=== PATIENT | female | born 1950 | race Caucasian/White ===

== ENCOUNTER 2020-08-15 02:33 | Emergency (ER) | payer MEDICARE, SELFPAY ==
--- NOTE | 2020-08-15 | ECG_ITS ---
APPROVED REPORT Exam: Resting ECG HR:70 bpm ECG Measurements Heart Rate 70 AXES OR 154 P QRSd 86 QRS 156 QT 472 T 147 QTc 509 Conclusion Normal sinus rhythm Right axis deviation Prolonged QT Abnormal ECG Electronically signed by : Darrell Taylor, 08/22/2020 07:37:58
[2020-08-15 02:33] VITALS: BP 114/69; PULSE 70; RESP 16; TEMP 36.6; O2SAT 95; BMI 26.6
--- NOTE | 2020-08-15 02:43 | XR_ITS ---
PROCEDURE: XR CHEST PORTABLE CLINICAL HISTORY: chest pain Chest pain and smoker COMPARISON: No exams were available for comparison FINDINGS: The cardiomediastinal silhouette and pulmonary vascularity are within normal limits. The lungs are clear without infiltrates, suspicious nodules, or pleural effusions. There is an old left 6th and 7th rib fracture. Minimal calcification noted the humeral head suggesting calcific tendinitis. IMPRESSION: No acute findings. Dictated by: Javier Pelaez MD 08/15/2020 07:08 Javier Pelaez MD in [place] 08/15/2020 07:08
--- NOTE | 2020-08-15 02:43 | CT_ITS ---
PROCEDURE: CT ABDOMEN PELVIS W CON CLINICAL INDICATION: abdominal pain, n/v Upper abdominal pain with nausea and vomiting COMPARISON: No exams were available for comparison TECHNIQUE: IV Contrast: 75ML Isovue 370 Oral Contrast None Axial images obtained with sagittal and coronal reformats. All CT scans at the facility use one or more dose reduction, viz: automated exposure control, ma/kV adjustment per patient size (including targeted exams where dose is matched to indication, i.e. head), or iterative reconstruction technique. FINDINGS: LOWER THORAX: Coronary artery calcifications are present. ABDOMEN & PELVIS: Prior cholecystectomy with mild biliary ectasia. 3 mm hypodensity in the right hepatic lobe central aspect and may represent a small cyst. 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 Mild thickening of the wall the stomach involving the lower body and antrum which may be due to nondistention or gastritis. Scattered calcifications are present involving the pancreas suggesting chronic pancreatitis a 14 mm hypodense lesion projects off the superior aspect of the body of the pancreas best seen on image 24 series 3. There is minimal wall calcification along the posterior aspect. No renal or ureteral calculi. No hydronephrosis or renal mass. There are few small retroperitoneal lymph nodes. The there is given history of prior appendectomy. No intestinal obstruction or free air. No evidence diverticulitis. No acute bony findings. Scattered small nodes are present in the inguinal regions on both sides. In the right lower quadrant there is a small tubular structure containing some calcifications and may be due to partially calcified lymph node or thrombosed varix. IMPRESSION: 1. Mild thickening of the gastric body and antrum which may be due to nondistention or gastritis. 2. Cystic lesion of the body of the pancreas containing some minimal calcification posteriorly. Cystic pancreatic neoplasm is a consideration. Nonemergent MRI of the abdomen with pancreatic protocol without and with gadolinium enhancement and MRCP is suggested. 3. Other nonacute findings as described above. Dictated by: Javier Pelaez MD 08/15/2020 07:50 Javier Pelaez MD in [place] 08/15/2020 07:50
--- NOTE | 2020-08-15 02:44 | HMH.EDGENADL ---
ED Disposition Clinical Impression: Pyelonephritis Disposition: Home, Self-Care Condition on Discharge: Fair Instructions: DI for Nausea -- Adult, Nausea and Vomiting-Adult Additional Instructions: Please take medication as prescribed If symptoms do not improve, please follow-up with your PCP or return to the ED for further evaluation Prescriptions: Amoxicillin/Potassium Clav [Augmentin 500mg tab] 500 mg PO BID 10 Days #20 tab Prescription Printed Ondansetron [Zofran 4mg ODT] 4 mg PO Q6H PRN #8 tab PRN Reason: Nausea And Vomiting Prescription Printed Referrals: PCP,No [Primary Care Provider] - - Critical Care Critical Care Time: No Attestation: On , the high probability of a clinically significant, sudden or life threatening deterioration of the following system(s) required my full and direct attention, intervention and personal management. The time I documented below is in addition to time spent performing reported procedures but includes the following listed in this critical care notation. Medical Decision Making - Medical Records Medical records reviewed: Yes: I reviewed the patient's medical records. - Marvin Inquiry Pt receiving controlled substance: Yes (Pain, takes oxy at home) Marvin was queried for this patient: Yes Risks and benefits of using a controlled substance: were discussed with pt by me Vital Signs: 08/15/20 02:33 Temperature 97.8 F Temperature Source Oral Pulse Rate [Left Radial] 70 Respiratory Rate 16 Blood Pressure [Right Arm] 114/69 Blood Pressure Mean [Right Arm] 84 Blood Pressure Source [Right Arm] Automatic Cuff Blood Pressure Position [Right Arm] Supine 02 Sat by Pulse Oximetry 95 Oxygen Delivery Method Room Air - Lab Data Lab Results 08/15/20 02:54: WBC 9.8, RBC 4.39, Hgb 12.6, Hct 38.9, MCV 88.5, MCH 28.6, MCHC 32.3, RDW 14.5, Plt Count 372, MPV 7.7, Neut % (Auto) 74.2, Lymph % (Auto) 18.9, [place] % (Auto) 4.4, Eos % (Auto) 1.8, Baso % (Auto) 0.7, Neut # (Auto) 7.3, Lymph # (Auto) 1.9, [place] # (Auto) 0.4, Eos # (Auto) 0.2, Baso # (Auto) 0.1 08/15/20 02:54: Sodium 139, Potassium 3.7, Chloride 102, Carbon Dioxide 26, Anion Gap 14.7, BUN 24 H, Creatinine 0.70, Estimated Creat Clear 62, Estimated GFR 82, Est GFR ( Amer) 100, Glucose 184 H, Calcium 10.0, Total Bilirubin 0.4, AST 28, ALT 13, Alkaline Phosphatase 121, Total Protein 8.9 H, Albumin 5.0, Globulin 3.9 H, Albumin/Globulin Ratio 1.3, Lipase 29 08/15/20 02:54: Lactate 1.0 08/15/20 03:13: Urine Color Yellow, Urine Appearance Clear, Urine pH 6.0, Ur Specific [place] 1.020, Urine Protein Negative, Urine Glucose (UA) 3+, Urine Ketones Negative, Urine Blood Negative, Urine Nitrate Positive, Urine Bilirubin Negative, Urine Urobilinogen 0.2, Ur Leukocyte Esterase Negative, Urine RBC None, Urine WBC 20-50, Ur Squamous Epith Cells None, Urine Bacteria 4+ Result diagrams: 08/15/20 02:54 08/15/20 02:54 Orders (Tests/Meds): ED MEDICATIONS Generic Name Dose Route Start Last Admin Trade Name Freq PRN Reason Stop Dose Admin Sodium Chloride 500 mls @ 999 mls/hr 08/15/20 03:00 08/15/20 03:33 Sod Chlor 0.9% 1000ml Bag IV 08/15/20 03:30 999 mls/hr .Q31M FANTA Administration Discontinued Medications Generic Name Dose Route Start Last Admin Trade Name Freq PRN Reason Stop Dose Admin Amoxicillin/Clavulanate Potassium 1 each 08/15/20 04:19 08/15/20 04:31 Amoxicillin/Pot Clavulan 500mg Tablet PO 08/15/20 04:20 1 each ONCE ONE Administration Protocol Iopamidol 70 ml 08/15/20 04:12 08/15/20 04:12 Iopamidol-370 (76%);100ml Bottle IV 08/15/20 04:13 70 ml ONCE ONE Administration Ondansetron HCl 4 mg 08/15/20 02:43 08/15/20 03:33 Ondansetron 4mg/2ml Vial IV 08/15/20 02:44 4 mg ONCE ONE Administration Oxycodone HCl 5 mg 08/15/20 04:47 Oxycodone 5mg Immediate Release Tablet PO 08/15/20 04:48 ONCE ONE Sodium Chloride 10 ml 08/15/20 04:12 08/15/20 04:12
[2020-08-15 03:00] VITALS: BP 115/65; PULSE 68; RESP 16; O2SAT 98
[2020-08-15 03:13] LABS: Basophils # 0.1 K/mm3 (0-0.2); Basophils % 0.7 % (0.1-2.0); Eosinophils # 0.2 K/mm3 (0.0-0.4); Eosinophils % 1.8 % (0.1-12.0); Hematocrit 38.9 % (37.0-47.0); Hemoglobin 12.6 g/dL (12.2-16.2); Lymphocytes # 1.9 K/mm3 (0.7-4.5); Lymphocytes % 18.9 % (10-50); Mean Corpuscular HGB Conc 32.3 g/dL (31.8-35.4); Mean Corpuscular Hemoglobin 28.6 pg (27.0-31.2); Mean Corpuscular Volume 88.5 fl (81-99); Mean Platelet Volume 7.7 fl (7.4-10.4); Monocytes # 0.4 K/mm3 (0.1-1.0); Monocytes % 4.4 % (1.7-9.3); Neutrophils # 7.3 K/mm3 (1.8-7.8); Neutrophils % 74.2 % (37.0-80.0); Platelet Count 372 K/mm3 (142-424); Red Blood Count 4.39 M/mm3 (4.20-5.40); Red Cell Distribution Width 14.5 % (11.5-17.5); White Blood Count 9.8 K/mm3 (4.8-10.8)
[2020-08-15 03:16] LABS: Chloride 102 mmol/L (98-107); Potassium 3.7 mmoL/L (3.5-5.1); Sodium 139 mmol/L (136-145)
[2020-08-15 03:18] LABS: Alanine Aminotransferase 13 U/L (12-78); Aspartate Amino Transferase 28 U/L (14-36); Blood Urea Nitrogen 24 mg/dl (7-17); Creatinine Clearance Estimated 62 mL/min (50-200); Estimated Glomerular Filt Rate 82 ml/min (>60); GFR (African American) 100 ML/MIN (>60)
[2020-08-15 03:19] LABS: Albumin/Globulin Ratio 1.3 (1.1-1.8); Alkaline Phosphatase 121 U/L (38-126); Anion Gap 14.7 mEq/L (5-15); Bilirubin,Total 0.4 mg/dl (0.2-1.3); Carbon Dioxide 26 mmol/L (22.0-30.0); Globulin 3.9 g/dL (1.3-3.2); Glucose 184 mg/dl (74-100); Lipase 29 U/L (23-300); Total Protein,Serum 8.9 g/dl (6.3-8.2)
[2020-08-15 03:22] LABS: Microscopic, Urine URINE MICROSCOPIC (MICROSCOPIC)
[2020-08-15 03:23] LABS: Appearance,Urine CLEAR (Clear); Bilirubin,Urine Negative (Negative); Blood, Urine Negative (Negative); Color,Urine YELLOW (Yellow); Glucose,Urine (UA) 3+ (Negative); Ketones,Urine Negative (Negative); Leukocyte Esterase,Urine Negative (Negative); Nitrate,Urine POSITIVE (Negative); Protein,Urine Negative (Negative); Urobilinogen,Urine 0.2 EU/dl (0.2)
[2020-08-15 03:36] LABS: Bacteria,Urine 4+ /lpf; WBC,Urine 20-50 #/hpf (0-3)
[2020-08-15 04:00] VITALS: BP 106/62; PULSE 70; RESP 16; O2SAT 98
[2020-08-15 05:19] VITALS: BP 114/56; PULSE 70; RESP 16; TEMP 36.8; O2SAT 96
== END 2020-08-15 05:23 | disposition home or self-care (01) ==
PROVIDERS: Emergency Provider Emergency Medicine
DX: N12 Tubulo-interstitial nephritis, not specified as acute or chronic (principal); E11.9 Type 2 diabetes mellitus without complications; Z86.73 Personal history of transient ischemic attack (TIA), and cerebral infarction without residual deficits; Z79.84 Long term (current) use of oral hypoglycemic drugs
CPT/HCPCS: 71045; 74177; 80053; 81001; 83605; 83690; 85025; 87086; 87088; 87186; 93005; 96365; 96375; 99283; J2405; Q9967

== ENCOUNTER 2020-08-28 14:13 | Emergency (ER) | payer MEDICARE, SELFPAY ==
[2020-08-28 14:14] VITALS: BP 115/59; PULSE 64; RESP 18; TEMP 36.8; O2SAT 98; BMI 25.9
--- NOTE | 2020-08-28 14:26 | HMH.EDGENADL ---
ED Disposition Clinical Impression: Acute psychosis Disposition: Xfer Short-Term Hosp Condition on Discharge: Fair Referrals: PCP,No [Primary Care Provider] - 3 days Time of Disposition: 16:11 - Critical Care Critical Care Time: No Attestation: On 08/28/20, the high probability of a clinically significant, sudden or life threatening deterioration of the following system(s) required my full and direct attention, intervention and personal management. The time I documented below is in addition to time spent performing reported procedures but includes the following listed in this critical care notation. Medical Decision Making - Medical Records Medical records reviewed: Yes: I reviewed the patient's medical records. - Marvin Inquiry Pt receiving controlled substance: No Vital Signs: 08/28/20 14:14 Temperature 98.3 F Temperature Source Oral Pulse Rate [Radial] 64 Respiratory Rate 18 Blood Pressure [Right Arm] 115/59 L Blood Pressure Mean [Right Arm] 77 Blood Pressure Position [Right Arm] Sitting 02 Sat by Pulse Oximetry 98 Oxygen Delivery Method Room Air - Lab Data Lab results reviewed: Yes: I reviewed the patient's lab results. Lab Results 08/28/20 14:17: Urine Color Yellow, Urine Appearance Clear, Urine pH 7.5, Ur Specific [place] 1.015, Urine Protein Negative, Urine Glucose (UA) 3+, Urine Ketones Negative, Urine Blood Negative, Urine Nitrate Negative, Urine Bilirubin Negative, Urine Urobilinogen 0.2, Ur Leukocyte Esterase Negative, Urine RBC Occasional, Urine WBC Occasional, Ur Squamous Epith Cells Occasional, Urine Bacteria None 08/28/20 14:17: Urine Opiates Screen Negative, Urine Methadone Screen Negative, Ur Barbituates Screen Negative, Ur Phencyclidine Scrn Negative, Ur Amphetamines Screen Negative, U Benzodiazepines Scrn Negative, Urine Cocaine Screen Negative, U Marijuana (THC) Screen Negative 08/28/20 14:43: WBC 7.9, RBC 4.37, Hgb 12.5, Hct 38.9, MCV 89.0, MCH 28.7, MCHC 32.2, RDW 14.3, Plt Count 300, MPV 7.6, Neut % (Auto) 57.0, Lymph % (Auto) 35.8, [place] % (Auto) 4.2, Eos % (Auto) 1.9, Baso % (Auto) 1.1, Neut # (Auto) 4.5, Lymph # (Auto) 2.8, [place] # (Auto) 0.3, Eos # (Auto) 0.2, Baso # (Auto) 0.1 08/28/20 14:43: Sodium 140, Potassium 3.8, Chloride 104, Carbon Dioxide 26, Anion Gap 13.8, BUN 16, Creatinine 0.80, Estimated Creat Clear 60, Estimated GFR 71, Est GFR ( Amer) 85, Glucose 103 H, Calcium 9.9, Salicylates < 1.0 L, Acetaminophen < 10 L 08/28/20 14:43: Plasma/Serum Alcohol < 10 Result diagrams: 08/28/20 14:43 08/28/20 14:43 Orders (Tests/Meds): ORDERS Category Date Time Status Covid-19 IgG/IgM ([facility]) Stat Lab 08/28/20 16:08 Ordered Medical Decision Narrative: 70yo F evaluated for acute psychosis. Patient vital signs are unremarkable. Routine psychiatric laboratory evaluation is underway. Lengthy discussion with the patient. Patient is calm and pleasant though seems acutely psychotic. She states she knows she is going to in soon. She has no reason for why she believes she is going to . [id number] at bedside request to speak in the hallway. In the hallway the [id number] tells me the patient is calling people to states she is already . She is giving away possessions stating she no longer needs them. She denies any violent behavior. They are concerned given the change in the patient's behavior over the past few weeks and that they have no local avenue for support. I am uncertain if the patient needs to be hospitalized at this time but do believe she would benefit from acute evaluation. [facility] was called and discussed the case with their intake coordinating team. They agreed to evaluate the patient upon their arrival. I have discussed with the family at bedside multiple times at the patient may still go home and the family must stay in the [facility] area to come and pick the patient up and take her home if admission is not elliot
[2020-08-28 14:30] VITALS: BP 118/66; PULSE 67; O2SAT 97
[2020-08-28 14:35] LABS: Microscopic, Urine URINE MICROSCOPIC (MICROSCOPIC)
[2020-08-28 14:37] LABS: Appearance,Urine CLEAR (Clear); Bilirubin,Urine Negative (Negative); Blood, Urine Negative (Negative); Color,Urine YELLOW (Yellow); Glucose,Urine (UA) 3+ (Negative); Ketones,Urine Negative (Negative); Leukocyte Esterase,Urine Negative (Negative); Nitrate,Urine Negative (Negative); PH,Urine 7.5 (5.0-8.5); Protein,Urine Negative (Negative); Specific Gravity, Urine 1.015 (1.005-1.030); Urobilinogen,Urine 0.2 EU/dl (0.2)
[2020-08-28 14:43] LABS: RBC,Urine Occasional #/hpf (0-3); Squamous Epithelial Cell,Urine Occasional #/hpf (0-5); WBC,Urine Occasional #/hpf (0-3)
[2020-08-28 14:50] LABS: Amphetamine/Metha Screen,Urine Negative ng/ml (<1000)
[2020-08-28 14:51] LABS: Barbiturates Screen,Urine Negative ng/ml (<200); Benzodiazepines Screen,Urine Negative ng/ml (<200)
[2020-08-28 14:52] LABS: Cannabinoid Screen,Urine Negative ng/ml (<50); Cocaine Screen,Urine Negative ng/ml (<300)
[2020-08-28 14:53] LABS: Methadone Screen,Urine Negative ng/ml (<300)
[2020-08-28 14:54] LABS: Opiate Screen,Urine Negative ng/ml (<300); Phencyclidine Screen,Urine Negative ng/ml (<25)
[2020-08-28 14:55] LABS: Basophils # 0.1 K/mm3 (0-0.2); Basophils % 1.1 % (0.1-2.0); Eosinophils # 0.2 K/mm3 (0.0-0.4); Eosinophils % 1.9 % (0.1-12.0); Hematocrit 38.9 % (37.0-47.0); Hemoglobin 12.5 g/dL (12.2-16.2); Lymphocytes # 2.8 K/mm3 (0.7-4.5); Lymphocytes % 35.8 % (10-50); Mean Corpuscular HGB Conc 32.2 g/dL (31.8-35.4); Mean Corpuscular Hemoglobin 28.7 pg (27.0-31.2); Mean Platelet Volume 7.6 fl (7.4-10.4); Monocytes # 0.3 K/mm3 (0.1-1.0); Monocytes % 4.2 % (1.7-9.3); Neutrophils # 4.5 K/mm3 (1.8-7.8); Platelet Count 300 K/mm3 (142-424); Red Blood Count 4.37 M/mm3 (4.20-5.40); Red Cell Distribution Width 14.3 % (11.5-17.5); White Blood Count 7.9 K/mm3 (4.8-10.8)
[2020-08-28 15:00] VITALS: BP 116/63; PULSE 66; O2SAT 95
[2020-08-28 15:13] LABS: Anion Gap 13.8 mEq/L (5-15); Blood Urea Nitrogen 16 mg/dl (7-17); Calcium 9.9 mg/dl (8.4-10.2); Carbon Dioxide 26 mmol/L (22.0-30.0); Chloride 104 mmol/L (98-107); Creatinine Clearance Estimated 60 mL/min (50-200); Estimated Glomerular Filt Rate 71 ml/min (>60); GFR (African American) 85 ML/MIN (>60); Glucose 103 mg/dl (74-100); Potassium 3.8 mmoL/L (3.5-5.1); Sodium 140 mmol/L (136-145)
[2020-08-28 15:14] LABS: Acetaminophen < 10 ug/ml (10-30); Ethyl Alcohol < 10 mg/dl (0-10); Salicylate < 1.0 mg/dL (2.0-20.0)
[2020-08-28 15:30] VITALS: BP 115/67; PULSE 71; O2SAT 97
[2020-08-28 16:00] VITALS: BP 131/77; PULSE 62; O2SAT 99
[2020-08-28 16:13] VITALS: BP 115/59; PULSE 64; RESP 16; TEMP 36.6; O2SAT 99
[2020-08-28 16:31] LABS: Coronavirus 19 IgG Antibody Negative (Negative); Coronavirus 19 IgM Antibody Negative (Negative)
== END 2020-08-28 16:19 | disposition short-term general hospital (02) ==
PROVIDERS: Emergency Provider Family Medicine
DX: F23 Brief psychotic disorder (principal); E11.9 Type 2 diabetes mellitus without complications; Z86.73 Personal history of transient ischemic attack (TIA), and cerebral infarction without residual deficits; Z79.899 Other long term (current) drug therapy; Z88.2 Allergy status to sulfonamides; Z88.5 Allergy status to narcotic agent
CPT/HCPCS: 80048; 80305; 80329; 81001; 85025; 86328; 99283

== ENCOUNTER 2021-05-12 10:12 | Emergency (ER) | payer MEDICARE, SELFPAY ==
[2021-05-12] VITALS (12 sets, daily range): BP systolic 99–119; BP diastolic 53–62; PULSE 69–87; RESP 12–23; TEMP 37.3–38.1; O2SAT 89–98; BMI 27.4
--- NOTE | 2021-05-12 10:14 | ECG_ITS ---
APPROVED REPORT Exam: Resting ECG HR:84 bpm ECG Measurements Heart Rate 84 AXES MT 148 P 41 QRSd 86 QRS 50 QT 410 T 46 QTc 484 Conclusion Normal sinus rhythm Nonspecific ST abnormality Abnormal ECG Electronically signed by : Darrell Taylor MD 05/13/2021 14:26:32
--- NOTE | 2021-05-12 10:18 | XR_ITS ---
FINAL REPORT CLINICAL HISTORY: chest congestion/weakness FINDINGS: A single view of the chest was obtained. The heart is normal in size. The mediastinum is unremarkable. The lungs are underinflated. There are mild chronic changes. There is no active disease. There is no pleural effusion. There is no pneumothorax. There is no acute osseous abnormality. IMPRESSION: No acute cardiopulmonary process. Reviewed, Interpreted and Dictated by Suman Hernandez MD Transcribed by Monika Prado Authenticated by Suman Hernandez MD on 05/12/2021 11:55:44 AM [facility]
[2021-05-12 10:26] LABS: Influenza A, PCR Not Detected (NotDetected); Influenza B, PCR Not Detected (NotDetected)
[2021-05-12 10:29] LABS: Basophils # 0.1 K/mm3 (0-0.2); Eosinophils # 0.1 K/mm3 (0.0-0.4); Eosinophils % 0.8 % (0.1-12.0); Hematocrit 37.2 % (37.0-47.0); Hemoglobin 12.1 g/dL (12.2-16.2); Lymphocytes # 1.3 K/mm3 (0.7-4.5); Lymphocytes % 10.1 % (10-50); Mean Corpuscular HGB Conc 32.6 g/dL (31.8-35.4); Mean Corpuscular Hemoglobin 31.3 pg (27.0-31.2); Mean Corpuscular Volume 96.2 fl (81-99); Mean Platelet Volume 8.2 fl (7.4-10.4); Monocytes # 0.6 K/mm3 (0.1-1.0); Monocytes % 4.5 % (1.7-9.3); Neutrophils # 10.4 K/mm3 (1.8-7.8); Neutrophils % 83.6 % (37.0-80.0); Platelet Count 245 K/mm3 (142-424); Red Blood Count 3.87 M/mm3 (4.20-5.40); Red Cell Distribution Width 14.5 % (11.5-17.5); White Blood Count 12.5 K/mm3 (4.8-10.8)
[2021-05-12 10:39] LABS: Alanine Aminotransferase 14 U/L (12-78); Albumin Level 4.5 g/dl (3.5-5.0); Albumin/Globulin Ratio 1.3 (1.1-1.8); Alkaline Phosphatase 71 U/L (38-126); Anion Gap 11.3 mEq/L (5-15); Aspartate Amino Transferase 32 U/L (14-36); Bilirubin,Total 0.8 mg/dl (0.2-1.3); Blood Urea Nitrogen 18 mg/dl (7-17); Calcium 8.8 mg/dl (8.4-10.2); Carbon Dioxide 27 mmol/L (22.0-30.0); Chloride 97 mmol/L (98-107); Creatinine Clearance Estimated 53 mL/min (50-200); Estimated Glomerular Filt Rate 49 ml/min (>60); GFR (African American) 59 ML/MIN (>60); Globulin 3.5 g/dL (1.3-3.2); Glucose 129 mg/dl (74-100); Potassium 3.3 mmoL/L (3.5-5.1); Sodium 132 mmol/L (136-145)
[2021-05-12 10:51] LABS: Troponin I < 0.01 ng/ml (0.00-0.034)
[2021-05-12 10:51] LABS: ABG Base Excess -2.1 mmol/L (-2.4-2.3); ABG HCO3 21.9 mmhg (22.0-26.0); ABG Oxygen Saturation 96 % (90-100); ABG PCO2 31.8 mmhg (35.0-45.0); ABG PH 7.46 mmol/L (7.35-7.45); ABG PO2 74.4 mmhg (80-100); ABG TCO2 22.8 mmhg (23-27)
[2021-05-12 10:52] LABS: Allen's Test Acceptable; Source Left Radial
[2021-05-12 10:52] LABS: Coronavirus 19, PCR Detected (NotDetected)
[2021-05-12 11:15] LABS: Strep Scrn Group A (Rapid) Negative (Negative)
--- NOTE | 2021-05-12 11:17 | HMH.EDGENADL ---
ED Disposition Clinical Impression: COVID, COPD exacerbation Right middle lobe pneumonia Qualifiers: Pneumonia type: due to unspecified organism Qualified Code(s): J18.9 - Pneumonia, unspecified organism Disposition: Home, Self-Care Condition on Discharge: Good Instructions: DI for COVID-19 (Suspected or Confirmed ) Prescriptions: Albuterol Sulfate [Albuterol Sulfate Hfa] 2 puff IH Q4HP PRN #1 each PRN Reason: Wheezing [facility] Doxycycline Monohydrate [Doxycycline [place] 100mg Tab] 100 mg PO Q12 #20 tab Transmission Status: [facility] to [facility] methylPREDNISolone [Medrol 4mg tab] 4 mg PO DIRECTED #21 tab Transmission Status: Pending to [facility] Referrals: Meghan Ro [Primary Care Provider] - - Critical Care Critical Care Time: No Attestation: On 05/12/21, the high probability of a clinically significant, sudden or life threatening deterioration of the following system(s) required my full and direct attention, intervention and personal management. The time I documented below is in addition to time spent performing reported procedures but includes the following listed in this critical care notation. Medical Decision Making - Medical Records Medical records reviewed: Yes: I reviewed the patient's medical records. - Marvin Inquiry Pt receiving controlled substance: No Vital Signs: 05/12/21 10:28 05/12/21 10:30 05/12/21 11:01 Temperature 100.5 F H Temperature Source Oral Pulse Rate 87 87 Pulse Rate [Left Radial] 85 Respiratory Rate 17 12 12 Blood Pressure 119/58 L 101/57 L Blood Pressure [Right Arm] 106/62 L Blood Pressure Mean 72 70 Blood Pressure Mean [Right Arm] 76 02 Sat by Pulse Oximetry 91 L 98 97 Oxygen Delivery Method Nasal Cannula Oxygen Flow Rate (LPM) 1 05/12/21 11:17 Temperature Temperature Source Pulse Rate 85 Pulse Rate [Left Radial] Respiratory Rate 18 Blood Pressure 101/57 L Blood Pressure [Right Arm] Blood Pressure Mean 76 Blood Pressure Mean [Right Arm] 02 Sat by Pulse Oximetry 98 Oxygen Delivery Method Oxygen Flow Rate (LPM) - Lab Data Lab Results 05/12/21 10:18: SARS-CoV-2 (PCR) Detected A, Influenza A Untype (PCR) Not detected, Influenza Type B (PCR) Not detected 05/12/21 10:19: WBC 12.5 H, RBC 3.87 L, Hgb 12.1 L, Hct 37.2, MCV 96.2, MCH 31.3 H, MCHC 32.6, RDW 14.5, Plt Count 245, MPV 8.2, Neut % (Auto) 83.6 H, Lymph % (Auto) 10.1, [place] % (Auto) 4.5, Eos % (Auto) 0.8, Baso % (Auto) 1.0, Neut # (Auto) 10.4 H, Lymph # (Auto) 1.3, [place] # (Auto) 0.6, Eos # (Auto) 0.1, Baso # (Auto) 0.1 05/12/21 10:19: Sodium 132 L, Potassium 3.3 L, Chloride 97 L, Carbon Dioxide 27, Anion Gap 11.3, BUN 18 H, Creatinine 1.10 H, Estimated Creat Clear 53, Estimated GFR 49 L, Est GFR ( Amer) 59, Glucose 129 H, Calcium 8.8, Total Bilirubin 0.8, AST 32, ALT 14, Alkaline Phosphatase 71, Total Protein 8.0, Albumin 4.5, Globulin 3.5 H, Albumin/Globulin Ratio 1.3 05/12/21 10:19: Lactate 1.0 05/12/21 10:19: Troponin I < 0.01 05/12/21 10:39: Group A Strep Rapid Negative 05/12/21 10:40: Specimen Source Left radial, O2 % 2l nc, ABG pH 7.46 H, ABG pCO2 31.8 L, ABG pO2 74.4 L, ABG HCO3 21.9 L, ABG Total CO2 22.8 L, ABG O2 Saturation 96, ABG Base Excess -2.1, Javier Test Acceptable Result diagrams: 05/12/21 10:19 05/12/21 10:19 Orders (Tests/Meds): ED MEDICATIONS Discontinued Medications Generic Name Dose Route Start Last Admin Trade Name Freq PRN Reason Stop Dose Admin Acetaminophen 650 mg 05/12/21 10:20 05/12/21 10:21 Acetaminophen 325mg Tab PO 05/12/21 10:21 650 mg ONCE ONE Administration Dexamethasone Sodium Phosphate 10 mg 05/12/21 11:17 05/12/21 11:23 Dexamethasone 4mg/Ml 5ml Mdv IV 05/12/21 11:18 10 mg ONCE ONE Administration Sodium Chloride 1,000 mls @ 999 mls/hr 05/12/21 10:30 05/12/21 10:41 Sod Chlor 0.9% 1000ml Bag IV 05/12/21 11:30 999 mls/hr
--- NOTE | 2021-05-12 11:56 | SW/DCPLANNER ---
Addendum entered by Elen Arias 05/12/21 12:59: Rut juarez/ Darren has stated that portable tank will be delivered to [facility] ED. Original Note: Patient information/order will be faxed to [facility] for patient to discharge from ED w/ portable O2 and home concentrator. I will follow up with Darren once patient information/order is reviewed.
== END 2021-05-12 14:54 | disposition home or self-care (01) ==
PROVIDERS: Emergency Provider Emergency Medicine; PCP Family Medicine
DX: U07.1 COVID-19 (principal); J12.82 Pneumonia due to coronavirus disease 2019; J44.1 Chronic obstructive pulmonary disease with (acute) exacerbation; E11.9 Type 2 diabetes mellitus without complications; Z79.899 Other long term (current) drug therapy
CPT/HCPCS: 71045; 80053; 82803; 83605; 84484; 85025; 87040; 87070; 87205; 87430; 93005; 96365; 96375; 99284; C9803; U0003; U0005

== ENCOUNTER 2022-07-05 12:59 | Emergency (ER) | payer MEDICARE, SELFPAY ==
[2022-07-05] VITALS (8 sets, daily range): BP systolic 116–153; BP diastolic 73–87; PULSE 71–81; RESP 12–16; TEMP 36.5–36.7; O2SAT 91–99; BMI 27.3
--- NOTE | 2022-07-05 13:01 | ECG_ITS ---
APPROVED REPORT Exam: Resting ECG HR:84 bpm ECG Measurements Heart Rate 84 AXES OR 137 P 0 QRSd 84 QRS 22 QT 395 T 42 QTc 436 Conclusion SINUS RHYTHM MINIMAL ST DEPRESSION [0.025+ mV ST DEPRESSION] BORDERLINE ECG UNCONFIRMED REPORT Electronically signed by : Darrell Taylor MD 07/06/2022 17:07:36
--- NOTE | 2022-07-05 13:05 | HMH.EDGENADL ---
Discharge Plan Disposition Patient Disposition: Home, Self-Care Condition: Good Prescriptions Prescriptions: New hydroxyzine HCl 25 mg tablet 25 mg PO BIDP PRN (Reason: anxiety) Qty: 10 0RF ciprofloxacin HCl [Cipro] 250 mg tablet 250 mg PO BID Qty: 14 0RF No Action clopidogrel 75 MG tablet 75 mg PO DAILY levothyroxine 75 MCG tablet 75 mcg PO DAILY empagliflozin 25 MG tablet 25 mg PO DAILY naloxegol 25 MG tablet 25 mg PO DAILY linaclotide 72 MCG capsule 72 mcg PO DAILY ondansetron 4 MG tablet,disintegrating 4 mg PO Q6H PRN (Reason: Nausea And Vomiting) Qty: 8 0RF amoxicillin-pot clavulanate 1 EACH tablet 500 mg PO BID 10 Days Qty: 20 0RF methylprednisolone 4 MG tablet 4 mg PO DIRECTED Qty: 21 0RF Rx Instructions: Take as directed on package instructions doxycycline monohydrate 100 MG tablet 100 mg PO Q12 Qty: 20 0RF albuterol sulfate 8.5 GM HFA aerosol inhaler 2 puff IH Q4HP PRN (Reason: Wheezing) Qty: 1 0RF Referrals Follow up/Referrals: Provider,Referral, MD [Referring] - See instructions Activity Restrictions/Add. Instructions Additional Instructions/Restrictions: Take hydroxyzine as needed for anxiety. See Dr. Ro, your primary care provider, early next week for follow-up. Call to make appointment. Clinical Impressions Clinical Impression: Anxiety, Cystitis Instructions Patient Instructions: DI for Anxiety -- Adult Discharge ED Provider: Slim Black General Adult HPI General Chief complaint: Chest Pain Stated complaint: chest pain Time Seen by Provider: 07/05/22 13:09 History of Present Illness HPI narrative: The patient is brought in by ambulance. States that she needs medication for anxiety and is having a panic attack. States that she has chest pressure, feels like she is shaking all over on the inside, cannot sleep, cannot stop her mind from racing all the time. She says she has had these episodes off and on for 26 years. She currently denies being suicidal but states I try to keep those thoughts pushed back . She does admit that she wishes the Lord would take me away . She denies being homicidal. She denies any current hallucinations. She states that she has been seeing her primary care provider, last saw her a couple of weeks ago. States that she recently has been on Abilify and buspirone, but neither of these helped and in fact she did not tolerate either 1 and had to stop them. She says that in the past she has also been on Prozac and Zoloft but she did not react well to either 1 of these either. She says that the only thing that helped in the past was Xanax. Review of her records here shows that she was here in August 2020 for psychosis. She was transferred to [facility]. She says that she was in the hospital for 3 days, but they did not do anything to help me . Review of her emergency department record from that visit indicates that she had recently been taken off of Xanax. Related Data Home Medications Medication Instructions Recorded Confirmed clopidogrel 75 mg tablet 75 mg PO DAILY Heart disease 08/15/20 08/15/20 empagliflozin 25 mg tablet 25 mg PO DAILY Diabetes 08/15/20 08/15/20 levothyroxine 75 mcg tablet 75 mcg PO DAILY Thyroid 08/15/20 08/15/20 linaclotide 72 mcg capsule 72 mcg PO DAILY IBS 08/15/20 08/15/20 naloxegol 25 mg tablet 25 mg PO DAILY Bowel 08/15/20 08/15/20 Previous Rx's Medication Instructions Recorded amoxicillin 500 mg-potassium 500 mg PO BID 10 days #20 tabs 08/15/20 clavulanate 125 mg tablet ondansetron 4 mg disintegrating 4 mg PO Q6H PRN Nausea And 08/15/20 tablet Vomiting #8 tabs albuterol sulfate 90 mcg/actuation 2 puff IH Q4HP PRN Wheezing #1 ea 05/12/21 aerosol inhaler doxycycline monohydrate 100 mg 100 mg PO Q12 #20 tabs 05/12/21 tablet methylprednisolone 4 mg tablet 4 mg PO DIRECTED #21 tabs 05/12/21 ciprofloxacin HCl 250 mg
--- NOTE | 2022-07-05 13:12 | PC.NURSE ---
er at bedside
--- NOTE | 2022-07-05 13:29 | XR_ITS ---
FINAL REPORT CLINICAL HISTORY: chest pressure weakness COMPARISON: 05/12/2021 FINDINGS: A single PA view of the chest was obtained. The cardiac and mediastinal silhouettes are within normal limits. The lungs are clear. There is no effusion or pneumothorax. No acute osseous abnormality is identified. IMPRESSION: No radiographic evidence of acute cardiac or pulmonary disease on this single view of the chest. Reviewed, Interpreted and Dictated by Yuridia Dominguez MD Transcribed by Nicole Lam Authenticated and [facility]
--- NOTE | 2022-07-05 13:35 | PC.NURSE ---
checked on pt states she just is uncomfortable no matter what you do no other complaints at this time
--- NOTE | 2022-07-05 13:39 | PC.NURSE ---
Contacted Anuja Peck for consult. Leisa states she will let her know when she gets out of the room with her pt
[2022-07-05 13:41] LABS: Basophils # 0.1 K/mm3 (0-0.2); Basophils % 1.4 % (0.1-2.0); Eosinophils # 0.1 K/mm3 (0.0-0.4); Eosinophils % 1.2 % (0.1-12.0); Hematocrit 39.2 % (37.0-47.0); Hemoglobin 13.2 g/dL (12.2-16.2); Lymphocytes # 2.1 K/mm3 (0.7-4.5); Lymphocytes % 27.3 % (10-50); Mean Corpuscular HGB Conc 33.8 g/dL (31.8-35.4); Mean Corpuscular Hemoglobin 30.5 pg (27.0-31.2); Mean Corpuscular Volume 90.2 fl (81-99); Mean Platelet Volume 7.9 fl (7.4-10.4); Monocytes # 0.4 K/mm3 (0.1-1.0); Monocytes % 5.2 % (1.7-9.3); Neutrophils # 4.9 K/mm3 (1.8-7.8); Platelet Count 291 K/mm3 (142-424); Red Blood Count 4.34 M/mm3 (4.20-5.40); Red Cell Distribution Width 13.6 % (11.5-17.5); White Blood Count 7.6 K/mm3 (4.8-10.8)
--- NOTE | 2022-07-05 13:42 | INFXCTL.NOTE ---
xray at bedside
[2022-07-05 13:43] LABS: Chloride 103 mmol/L (98-107)
[2022-07-05 13:44] LABS: Potassium 3.7 mmoL/L (3.5-5.1); Sodium 139 mmol/L (136-145)
[2022-07-05 13:46] LABS: Alanine Aminotransferase 44 U/L (12-78); Alkaline Phosphatase 73 U/L (38-126); Aspartate Amino Transferase 60 U/L (14-36); Bilirubin,Total 0.6 mg/dl (0.2-1.3); Blood Urea Nitrogen 14 mg/dl (7-17); Creatinine Clearance Estimated 63 mL/min (50-200); Estimated Glomerular Filt Rate 70 ml/min (>60); GFR (African American) 85 ML/MIN (>60)
[2022-07-05 13:47] LABS: Albumin/Globulin Ratio 1.2 (1.1-1.8); Anion Gap 15.7 mEq/L (5-15); Calcium 9.4 mg/dl (8.4-10.2); Carbon Dioxide 24 mmol/L (22.0-30.0); Globulin 4.3 g/dL (1.3-3.2); Glucose 132 mg/dl (74-100); Salicylate < 1.0 mg/dL (2.0-20.0); Total Protein,Serum 9.3 g/dl (6.3-8.2)
[2022-07-05 13:51] LABS: Acetaminophen < 10 ug/ml (10-30); Ethyl Alcohol < 10 mg/dl (0-10)
--- NOTE | 2022-07-05 14:00 | PC.NURSE ---
Spoke with Anuja who gave pt a appt for august 18 at 11:15, states she is booked up and it would be 5:00 before she could come down. MD laguerre
[2022-07-05 14:02] LABS: Troponin I < 0.01 ng/ml (0.00-0.034)
[2022-07-05 14:18] LABS: Thyroid Stimulating Hormone 0.13 uIU/mL (0.465-4.68)
--- NOTE | 2022-07-05 14:19 | PC.NURSE ---
called md office Meghan carrasco of [facility] left message to have them to call back to speak with er md about pt
--- NOTE | 2022-07-05 14:24 | PC.NURSE ---
speaking to dr carver office about consulting with marcelino reeder
--- NOTE | 2022-07-05 14:31 | PC.NURSE ---
spoke to dr carver office waiting call back from so she can speak to er
--- NOTE | 2022-07-05 14:33 | PC.NURSE ---
Rounded on patient; pt given some ice water, call light within reach. no other needs at this time.
--- NOTE | 2022-07-05 14:53 | PC.NURSE ---
on the phone with pt PCP at this time
--- NOTE | 2022-07-05 14:56 | PC.NURSE ---
pt ambulatory to restroom with assistance from myself. no complications
--- NOTE | 2022-07-05 15:05 | PC.NURSE ---
UA sent to lab. Patient given a warm blanket, lights out for patients comfort. Call light within reach
[2022-07-05 15:07] LABS: Microscopic, Urine URINE MICROSCOPIC (MICROSCOPIC)
[2022-07-05 15:09] LABS: Appearance,Urine CLEAR (Clear); Blood, Urine TRACE-I (Negative); Color,Urine YELLOW (Yellow); Glucose,Urine (UA) Negative (Negative); Ketones,Urine TRACE (Negative); Leukocyte Esterase,Urine 1+ (Negative); Nitrate,Urine POSITIVE (Negative); Protein,Urine TRACE (Negative); Specific Gravity, Urine 1.025 (1.005-1.030); Urobilinogen,Urine 0.2 EU/dl (0.2)
--- NOTE | 2022-07-05 15:20 | PC.NURSE ---
rounded on pt resting in bed no complaints at this time
[2022-07-05 15:24] LABS: Bilirubin,Urine 1+ (Negative)
--- NOTE | 2022-07-05 15:36 | PC.NURSE ---
pt resting, no needs at this time
[2022-07-05 15:39] LABS: Bacteria,Urine 4+ /lpf; Transitional Epi Cells,Urine OCC #/lpf (0-3)
[2022-07-05 15:40] LABS: Fine Granular Casts,Urine Occasional #/lpf (0)
[2022-07-05 15:55] LABS: Amphetamine/Metha Screen,Urine Negative ng/ml (<1000); Benzodiazepines Screen,Urine Positive ng/ml (<200)
[2022-07-05 15:56] LABS: Barbiturates Screen,Urine Negative ng/ml (<200); Cannabinoid Screen,Urine Negative ng/ml (<50)
[2022-07-05 15:57] LABS: Cocaine Screen,Urine Negative ng/ml (<300)
[2022-07-05 15:58] LABS: Methadone Screen,Urine Negative ng/ml (<300); Opiate Screen,Urine Negative ng/ml (<300)
[2022-07-05 15:59] LABS: Phencyclidine Screen,Urine Negative ng/ml (<25)
== END 2022-07-05 17:47 | disposition home or self-care (01) ==
PROVIDERS: Emergency Provider Emergency Medicine; PCP Family Medicine
DX: F41.9 Anxiety disorder, unspecified (principal); N30.00 Acute cystitis without hematuria; F41.0 Panic disorder [episodic paroxysmal anxiety]
CPT/HCPCS: 71045; 80053; 80305; 80329; 81001; 84443; 84484; 85025; 87086; 87088; 87186; 93005; 99285

== ENCOUNTER → 2022-11-22 13:38 | Outpatient (POV) | payer MEDICARE, SELFPAY ==
--- NOTE | 2022-11-22 14:01 | EXP.PAIN.OV ---
HPI Data of Consult Patient: new to practice Consult date: 11/22/22 Requesting Physician: Yissel Velez APRN Consult Narrative Reason for consult: Low back pain, right knee pain, shoulder pain History of present illness: Ms. Whitfield is a 72 year old female who presents today as a new patient. She is a referral from [facility]. Today she rates her pain a 5 out of 10. Patient states her pain is all in her shoulders, low back and right knee. Patient states this has been going on for years and progressively worsened over time. She does state that she was diagnosed with arthritis in multiple joints around the age of 43. Patient does describe the pain as an aching, throbbing sensation that is worse with increased activity. She has tried vnem-mzq-hqhafgo Tylenol and ibuprofen along with heat and ice and topicals with minimal improvement. Patient has gone to physical therapy however this worsened her symptoms. Patient has previously tried injections in her muscles around her shoulders from her primary care doctor and low back that did provide significant improvement lasting approximately 3 months. She does state that her worst pain is in her left shoulder and that she does have limited range of motion. It does interfere with her ability to perform activities of daily living such as cooking and cleaning. Patient does state that she has recent imaging at [facility] and [facility]. Patient is currently managed with [place] 5 mg 3 times a day, alprazolam 0.5 mg twice a day from outside providers. Patient denies any side effects from these medications. Her Marvin is [phone]. Its been reviewed and appropriate. CC: Yissel Velez APRN [facility] Disclaimer: The information contained in this section may have been updated after the patient was seen, as this information can be updated by other users. Medical History (Updated 11/22/22 @ 14:14 by Yissel Velez APRN) Panic disorder Social History (Updated 08/21/22 @ 16:25 by Anuja Weston APRN) Smoking Status: Never smoker alcohol intake: never current occupational status: retired Travel in the last 8 weeks: None Review of Systems Review of Systems Review of systems:: pertinent systems reviewed and negative unless documented below Review of systems (narrative): Review of Systems: General: No recent weight changes, no fever, no sleep disturbances Respiratory: No cough, no shortness of air, no recurring pulmonary infections Cardiovascular/peripheral vascular: No chest pain, no palpitations, no edema, no shortness of breath Gastrointestinal: No new onset incontinence, normal bowel movements reported Genitourinary: No new onset incontinence Musculoskeletal: Bilateral shoulder pain, low back pain, right knee pain Psychiatric: [Normal mood/affect] Neurological: [Denies weakness in extremities], [denies balance issues] Meds Home Medications and Allergies Home Medications Medication Instructions Recorded Confirmed Type clopidogrel 75 mg tablet 75 mg PO DAILY Heart disease 08/15/20 10/14/22 History empagliflozin 25 mg tablet 25 mg PO DAILY Diabetes 08/15/20 10/14/22 History levothyroxine 75 mcg tablet 75 mcg PO DAILY Thyroid 08/15/20 10/14/22 History linaclotide 72 mcg capsule 72 mcg PO DAILY IBS 08/15/20 10/14/22 History naloxegol 25 mg tablet 25 mg PO DAILY Bowel 08/15/20 10/14/22 History ondansetron 4 mg disintegrating 4 mg PO Q6H PRN Nausea And 08/15/20 10/14/22 Rx tablet Vomiting #8 tabs albuterol sulfate 90 mcg/actuation 2 puff inhalation Q4HP PRN 05/12/21 10/14/22 Rx aerosol inhaler Wheezing #1 ea hydroxyzine HCl 25 mg tablet 25 mg PO BIDP PRN anxiety #10 tabs 07/05/22 10/14/22 Rx alprazolam 0.5 mg tablet (Xanax) 0.5 mg PO BID PRN anxiety #60 tabs 09/27/22 09/27/22 Rx New Prescriptions to Start Prescriptions: Allergies Allergy/AdvReac Type Severity Reaction Status Date / Time cefaclor [From [facility]] Allergy Mild Verified
[2022-11-22 14:25] VITALS: BP 119/68; PULSE 77; RESP 18; O2SAT 98; BMI 29.0
== END ==
PROVIDERS: Visit Provider Nurse Practitioner Family
DX: M25.511 Pain in right shoulder (principal); M25.512 Pain in left shoulder; G89.29 Other chronic pain; M19.012 Primary osteoarthritis, left shoulder; M54.50 Low back pain, unspecified; M25.561 Pain in right knee
CPT/HCPCS: 99202; G0463

== ENCOUNTER 2022-12-05 09:40 | Day surgery (SDC) | payer MEDICARE, SELFPAY ==
[2022-12-05 09:50] VITALS: BP 129/79; PULSE 73; RESP 18; O2SAT 94; BMI 29.0
[2022-12-05 09:54] VITALS: BP 156/70; PULSE 68; RESP 18; O2SAT 98
[2022-12-05 10:05] VITALS: BP 131/66; PULSE 65; RESP 18; O2SAT 94
--- NOTE | 2022-12-05 10:10 | P.PCN_ITS ---
Procedure Date: 12/05/22 Time: 10:00 Anesthesiologist:: Bhavin Grey CRNA Complications:: None Pre-procedure Diagnosis:: Osteoarthritis left shoulder. Chronic left shoulder pain. Post-procedure Diagnosis:: Same. Indications for Procedure:: Patient is a very pleasant 72-year-old female that comes our clinic today for a left intra-articular shoulder injection. She complains of decreased range of motion secondary to pain in the left shoulder joint. Patient has good strength in the left arm. She rates her pain 7/10. Procedure Details:: Procedure Details: Left shoulder intra-articular injection Informed consent was obtained risk and benefits of the procedure were explained to the patient. Patient was taken to the procedure room. The left shoulder was prepped using ChloraPrep. A 25-gauge needle was used first anteriorly, laterally, and then posteriorly to inject 10 mL bupivacaine 0.25% and Depo- Medrol 40 mg. Patient tolerated procedure well with no complications. Plan and Disposition:: Patient was discharged without incident.
== END 2022-12-05 10:05 | disposition home or self-care (01) ==
PROVIDERS: PCP Family Medicine; Visit Provider Nurse Anesthetist, Certified Registered
DX: M19.012 Primary osteoarthritis, left shoulder (principal); M25.552 Pain in left hip; G89.29 Other chronic pain
CPT/HCPCS: 20610; J1040

== ENCOUNTER → 2022-12-20 10:51 | Outpatient (POV) | payer MEDICARE, SELFPAY ==
--- NOTE | 2022-12-20 11:06 | EXP.PAIN.SOA ---
[facility] Pain Management SOAP Note Subjective:: Patient is a pleasant 72-year-old female who presents today for follow-up of left intra-articular shoulder injection on 12/05/2022. We are currently treating the patient for degenerative disc disease of lumbar spine with lumbar radiculopathy symptoms, bilateral knee pain, bilateral shoulder pain/osteoarthritis. today she rates her pain a 5 out of 10. She denies any new trauma or injury. She states that she really did not notice significant improvement following this injection however she states she did get the chills and had to go lay down once she got home. Patient does states she continues to have pain in her bilateral shoulders as well as her upper arms with an aching, throbbing sensation and numbness and tingling into her hands. Patient was recently prescribed compounding cream that she states she has been using and it does seem to help some of her symptoms. She states she has been using it on her knees, shoulders as well as on her ribs along the left side where she does have some pain. Patient states this is an old injury where she had broken a few ribs. Patient states she has not had any recent imaging of her cervical spine. She states that she did have shoulder x-rays done back at [facility] by Dr. Cordova. She states that he did make mention at one point that he thought that she had stenosis and that he was going to send her to [place] for possible surgical intervention however she was not interested in this option. Patient is currently managed with [place] 5 mg 3 times a day, alprazolam 0.5 mg twice a day from outside providers. Patient denies any side effects from these medications. Her Marvin is [phone]. Its been reviewed and appropriate. Review of Systems: General: No recent weight changes, no fever, no sleep disturbances Respiratory: No cough, no shortness of air, no recurring pulmonary infections Cardiovascular/peripheral vascular: No chest pain, no palpitations, no edema, no shortness of breath Gastrointestinal: No new onset incontinence, normal bowel movements reported Genitourinary: No new onset incontinence Musculoskeletal: Bilateral shoulder pain, bilateral arm numbness and tingling, neck pain Psychiatric: [Normal mood/affect] Neurological: [Denies weakness in extremities], [denies balance issues] Objective:: Physical Exam: General: Alert and oriented x3, no acute distress, pleasant and cooperative Lungs: Respirations even and unlabored, symmetrical chest expansion Eyes: PERRL Musculoskeletal: Flexion and extension of cervical [spine] somewhat guarded secondary to pain, [antalgic gait noted] Neurological: Speech clear, no gross sensory deficit Assessment:: Degenerative disc disease of lumbar spine with lumbar radiculopathy symptoms, bilateral knee pain, bilateral shoulder pain/osteoarthritis neck pain with cervical radiculopathy symptoms Plan:: Patient is experiencing significant pain from her neck into her shoulders and her arms. I have counseled the patient that I do believe this is related to stenosis or narrowing within her cervical spine. I will order x-ray imaging and MRI without contrast of her cervical spine. I have counseled the patient in future she may benefit from a cervical epidural steroid injection. Patient will return to clinic in 1 month following her cervical imaging for reevaluation of symptoms and plan of care. Patient has been instructed to contact the clinic with any concerns before the next appointment. Dr. Prado has reviewed this note and agrees with this plan of care. This note was dictated using voice recognition software and make contain errors or omissions. [facility] Disclaimer: The information contained in this section may have been updated after the patient was seen, as this information can be updated by other users. Medical History Anxiety CAD (coronary artery disease) COPD (chronic obst
[2022-12-20 11:24] VITALS: BP 110/51; PULSE 74; RESP 18; O2SAT 96; BMI 28.5
== END ==
LOC: SC.PAIN 10:52
PROVIDERS: PCP Family Medicine; Visit Provider Nurse Practitioner Family
DX: M51.16 Intervertebral disc disorders with radiculopathy, lumbar region (principal); M25.561 Pain in right knee; M25.562 Pain in left knee; M19.011 Primary osteoarthritis, right shoulder; M19.012 Primary osteoarthritis, left shoulder; M54.12 Radiculopathy, cervical region
CPT/HCPCS: 99212; G0463

== ENCOUNTER → 2022-12-20 11:31 | Outpatient (CLI) | payer MEDICARE, SELFPAY ==
--- NOTE | 2022-12-20 11:42 | XR_ITS ---
FINAL REPORT CLINICAL HISTORY: NECK PAIN FINDINGS: CERVICAL SPINE Five views demonstrate no acute fracture. There are mild degenerative changes. There is mild right neural foraminal narrowing at C5-6 and C6-7. Postoperative changes are seen in the anterior neck. There is no malalignment. IMPRESSION: Degenerative changes with mild neural foraminal narrowing as above. Reviewed, Interpreted and Dictated by Rico Pablo III, MD Transcribed by Pily Izaguirre Authenticated and [facility]
== END ==
PROVIDERS: PCP Family Medicine; Visit Provider Nurse Practitioner Family
DX: M54.2 Cervicalgia (principal)
CPT/HCPCS: 72050; 99212; G0463

== ENCOUNTER → 2023-01-01 14:39 | Outpatient (CLI) | payer MEDICARE, SELFPAY ==
--- NOTE | 2023-01-01 14:42 | MR_ITS ---
FINAL REPORT CLINICAL HISTORY: NECK PAIN on right side. headache COMPARISON: None FINDINGS: Multi planar MR imaging was obtained of the cervical spine. There is abnormal decreased signal throughout the cervical discs. There is mild loss of height at C5-6 and C6-7. There is no malalignment. The cervical cord demonstrates normal signal and configuration. C2-C3: There is no evidence of significant disc bulge or protrusion. There is no significant facet hypertrophy. C3-C4: There is no evidence of significant disc bulge or protrusion. There is no significant facet hypertrophy. C4-C5: Mild diffuse disc bulge. Endplate hypertrophy. Neural foramen are adequately patent. C5-C6: Moderate diffuse disc bulge. Endplate hypertrophy. High-grade bilateral neural foraminal narrowing. C6-C7: Moderate diffuse disc bulge. Endplate hypertrophy. Moderate bilateral neural foraminal narrowing. C7-T1: There is no evidence of significant disc bulge or protrusion. There is no significant facet hypertrophy. IMPRESSION: Diffuse disc bulges at C4-5, C5-6, and C6-7 with high-grade bilateral neural foraminal narrowing at C5-6. Reviewed, Interpreted and Dictated by Suman Hernandez MD Transcribed by Zeina Sofia Authenticated and . [facility]
== END ==
PROVIDERS: PCP Family Medicine; Visit Provider Nurse Practitioner Family
DX: M54.2 Cervicalgia (principal)
CPT/HCPCS: 72141; 76376

== ENCOUNTER 2023-01-01 16:00 | Emergency (ER) | payer MEDICARE, SELFPAY ==
[2023-01-01 16:02] VITALS: BP 128/80; PULSE 90; RESP 18; TEMP 36.8; O2SAT 96; BMI 29.0
--- NOTE | 2023-01-01 16:20 | ECG_ITS ---
APPROVED REPORT Exam: Resting ECG HR:76 bpm ECG Measurements Heart Rate 76 AXES NC 157 P -3 QRSd 85 QRS 31 QT 401 T 26 QTc 432 Conclusion SINUS RHYTHM MINIMAL ST DEPRESSION [0.025+ mV ST DEPRESSION] BORDERLINE ECG UNCONFIRMED REPORT Electronically signed by : Darrell Taylor MD 01/02/2023 17:19:13
--- NOTE | 2023-01-01 16:22 | PC.NURSE ---
Patient reports she is nauseous. MD notified V/O for 4mg Zofran ODT
[2023-01-01 16:31] VITALS: BP 142/81; PULSE 88; O2SAT 95
--- NOTE | 2023-01-01 16:49 | HMH.EDGENADL ---
Discharge Plan Disposition Patient Disposition: Home, Self-Care Prescriptions Prescriptions: New lidocaine 5 % adhesive patch,medicated 1 patch topical DAILY Qty: 30 0RF Rx Instructions: leave on most painful area for up to 12 hrs prednisone 20 mg tablet 20 mg PO DAILY 4 Days Qty: 4 0RF No Action alprazolam [Xanax] 0.5 mg tablet 0.5 mg PO TID PRN (Reason: anxiety) Qty: 90 2RF clopidogrel 75 MG tablet 75 mg PO DAILY levothyroxine 75 MCG tablet 75 mcg PO DAILY empagliflozin 25 MG tablet 25 mg PO DAILY naloxegol 25 MG tablet 25 mg PO DAILY linaclotide 72 MCG capsule 72 mcg PO DAILY hydroxyzine HCl 25 mg tablet 25 mg PO BIDP PRN (Reason: anxiety) Qty: 10 0RF albuterol sulfate 8.5 GM HFA aerosol inhaler 2 puff inhalation Q4HP PRN (Reason: Wheezing) Qty: 1 0RF Referrals Follow up/Referrals: Lennie Kelley MD [Primary Care Provider] - See instructions Activity Restrictions/Add. Instructions Additional Instructions/Restrictions: Call your family doctor to establish care for this visit to the emergency department and schedule follow-up within 48 hours to ensure improvement. If you have any worsening of your condition or any other concerning signs or symptoms, return to the emergency department or your primary care doctor for further evaluation. Take Tylenol 1000 mg every 6 hours (4 times daily) and ibuprofen 400 mg every 6 hours (4 times daily) as needed with food and water to prevent GI upset and kidney damage. spine center info: [address] [facility], [place] [address] Phone Call?[phone] [email or web address] Dropoff / [email or web address] Hours Sun:Closed Mon-Fri:7:30 am - 5:00 pm Sat:Closed Clinical Impressions Clinical Impression: Cervical radiculopathy Discharge ED Provider: Naldo Ortiz General Adult HPI General Chief complaint: PAIN Stated complaint: pain at back of neck, headache Time Seen by Provider: 01/01/23 16:05 Mode of Arrival: Ambulatory Source of Information: Patient Limitations: No Limitations Description of Symptoms (Recalled from ER Triage Doc. by RN): Presents to ED with c/o right sided neck pain that starts 4 days ago. Patient repotrs using heat and ice, 1300mg of Tylenol [employer], and used topical pain medication Rx'd by pain clinic with no relief. Patient states she just had an cervical spine MRI today for this episode. +Plavix History of Present Illness HPI narrative: This is a 72-year-old female with history of DDD of the neck and thoracic/lumbar spines with chronic pain currently following with family doctor and pain management team presenting with neck pain. Patient states that she got an MRI today. Was having significant pain at MRI, so came to the ER for further evaluation. Denies weakness, numbness, tingling. Patient states that she is having severe, intermittent shooting pains in the right side of her neck that radiate up to her right ear. No fevers or chills, vision deficits, speech finding difficulty, any other cranial nerve deficits also not having any saddle anesthesia, lower extremity deficits, bowel or bladder dysfunction, and no trauma. Has not noticed anything that makes the pain better. Related Data Home Medications Medication Instructions Recorded Confirmed clopidogrel 75 mg tablet 75 mg PO DAILY Heart disease 08/15/20 12/27/22 empagliflozin 25 mg tablet 25 mg PO DAILY Diabetes 08/15/20 12/27/22 levothyroxine 75 mcg tablet 75 mcg PO DAILY Thyroid 08/15/20 12/27/22 linaclotide 72 mcg capsule 72 mcg PO DAILY IBS 08/15/20 12/27/22 naloxegol 25 mg tablet 25 mg PO DAILY Bowel 08/15/20 12/27/22 Previous Rx's Medication Instructions Recorded albuterol sulfate 90 mcg/actuation 2 puff inhalation Q4HP PRN 05/12/21 aer
[2023-01-01 17:00] VITALS: BP 113/69; PULSE 76; O2SAT 94
--- NOTE | 2023-01-01 17:03 | PC.NURSE ---
Rounded on patient; call light within reach of patient
--- NOTE | 2023-01-01 17:03 | PC.NURSE ---
BS 105
[2023-01-01 17:12] LABS: POC Glucose,Bedside 105 (70-110)
[2023-01-01 17:30] VITALS: BP 113/69; PULSE 76; RESP 18; TEMP 36.8; O2SAT 94
== END 2023-01-01 17:30 | disposition home or self-care (01) ==
PROVIDERS: Emergency Provider Emergency Medicine; PCP Family Medicine
DX: F41.0 Panic disorder [episodic paroxysmal anxiety] (principal); M54.12 Radiculopathy, cervical region; I25.10 Atherosclerotic heart disease of native coronary artery without angina pectoris; J44.9 Chronic obstructive pulmonary disease, unspecified; E11.9 Type 2 diabetes mellitus without complications; E03.9 Hypothyroidism, unspecified; F17.200 Nicotine dependence, unspecified, uncomplicated
CPT/HCPCS: 72141; 76376; 82962; 93005; 96372; 96374; 99284

== ENCOUNTER → 2023-02-01 15:01 | Outpatient (POV) | payer MEDICARE, SELFPAY ==
--- NOTE | 2023-02-01 15:47 | EXP.PAIN.SOA ---
[facility] Pain Management SOAP Note Subjective:: Patient is a pleasant 72-year-old female who presents today for cervical MRI follow-up. We are currently treating the patient for degenerative disc disease of lumbar spine with lumbar radiculopathy symptoms, neck pain with cervical radiculopathy symptoms, bilateral knee pain bilateral shoulder pain. Today she rates her pain a 7 out of 10. Patient denies any new trauma or injury. She denies any change location or type of pain she experiences. Patient does states she continues to have neck pain that does radiate into her shoulders and arms as well as low back pain. Patient does state that she did recently have a lumbar epidural done at [facility] and was told that she had chronic arthritis and stenosis in her low back. Patient does state that her pain interferes with her ability perform activities of daily living such as cooking and cleaning. Patient was seeing Dr. Cordova who did prescribe her [place] however he only gave her 30 tablets. Patient states that she does no longer have any additional refills of this medication. Patient states that she does typically use Tylenol arthritis and denies any heart or kidney issues. Patient does state that she has tried tramadol in the past with no improvement. Her Marvin has been reviewed and is appropriate. Review of Systems: General: No recent weight changes, no fever, no sleep disturbances Respiratory: No cough, no shortness of air, no recurring pulmonary infections Cardiovascular/peripheral vascular: No chest pain, no palpitations, no edema, no shortness of breath Gastrointestinal: No new onset incontinence, normal bowel movements reported Genitourinary: No new onset incontinence Musculoskeletal: Neck pain, low back pain Psychiatric: [Normal mood/affect] Neurological: [Denies weakness in extremities], [denies balance issues] Objective:: Physical Exam: General: Alert and oriented x3, no acute distress, pleasant and cooperative Lungs: Respirations even and unlabored, symmetrical chest expansion Eyes: PERRL Musculoskeletal: Flexion and extension of cervical [spine] somewhat guarded secondary to pain, [antalgic gait noted] Neurological: Speech clear, no gross sensory deficit CLINICAL HISTORY: NECK PAIN on right side. headache COMPARISON: None FINDINGS: Multi planar MR imaging was obtained of the cervical spine. There is abnormal decreased signal throughout the cervical discs. There is mild loss of height at C5-6 and C6-7. There is no malalignment. The cervical cord demonstrates normal signal and configuration. C2-C3: There is no evidence of significant disc bulge or protrusion. There is no significant facet hypertrophy. C3-C4: There is no evidence of significant disc bulge or protrusion. There is no significant facet hypertrophy. C4-C5: Mild diffuse disc bulge. Endplate hypertrophy. Neural foramen are adequately patent. C5-C6: Moderate diffuse disc bulge. Endplate hypertrophy. High-grade bilateral neural foraminal narrowing. C6-C7: Moderate diffuse disc bulge. Endplate hypertrophy. Moderate bilateral neural foraminal narrowing. C7-T1: There is no evidence of significant disc bulge or protrusion. There is no significant facet hypertrophy. IMPRESSION: Diffuse disc bulges at C4-5, C5-6, and C6-7 with high-grade bilateral neural foraminal narrowing at C5-6. Reviewed, Interpreted and Dictated by Suman Hernandez MD Transcribed by Zeina Sofia Authenticated and [facility] Assessment:: Degenerative disc disease of cervical and lumbar spine with cervical and lumbar radiculopathy symptoms, cervical spinal stenosis, bilateral shoulder pain, bilateral knee pain Plan:: Patient continues to experience significant pain in her neck and low back with limited range of motion. I have discussed with her the MRI findings of her cervical spine. I have recommended that we send h
[2023-02-01 15:58] VITALS: BP 123/69; PULSE 79; RESP 18; O2SAT 95; BMI 29.1
== END | disposition home or self-care (01) ==
PROVIDERS: PCP Family Medicine; Visit Provider Nurse Practitioner Family
DX: M50.10 Cervical disc disorder with radiculopathy, unspecified cervical region (principal); M51.16 Intervertebral disc disorders with radiculopathy, lumbar region; M48.02 Spinal stenosis, cervical region; M25.511 Pain in right shoulder; M25.512 Pain in left shoulder; M25.561 Pain in right knee; M25.562 Pain in left knee
CPT/HCPCS: 99212; G0463

== ENCOUNTER 2023-04-24 14:38 | Emergency (ER) | payer MEDICARE, SELFPAY ==
[2023-04-24] VITALS (11 sets, daily range): BP systolic 131–161; BP diastolic 73–96; PULSE 63–85; RESP 16; TEMP 36.4–36.6; O2SAT 94–99; BMI 26.6
--- NOTE | 2023-04-24 14:51 | CT_ITS ---
FINAL REPORT TECHNIQUE: The patient was injected with IV contrast. Axial images were obtained through the chest in a PE protocol. 3-D reconstruction images were also performed. Individualized dose reduction techniques using automated exposure control or adjustment of the MA and/or KV according to patient's size were employed. CLINICAL HISTORY: L inferior thoracic cage pain FINDINGS: Mediastinal vasculature is adequately opacified. No pulmonary artery filling defects are identified to suggest PE. There is no aortic dissection. There is no axillary adenopathy. There is no hilar or mediastinal adenopathy. The heart size is normal. There is no pericardial or pleural effusion. No suspicious infiltrate or nodule is identified. There is healed fracture deformity of the left lateral ribs. IMPRESSION: No pulmonary embolus or dissection. Reviewed, Interpreted and Dictated by Suman Hernandez MD Transcribed by Pily Izaguirre Authenticated and [facility]
--- NOTE | 2023-04-24 14:51 | CT_ITS ---
FINAL REPORT TECHNIQUE: After the administration of intravenous contrast, axial images were obtained through the abdomen and pelvis by computed tomography. The study was performed with techniques to keep radiation dose as low as reasonably achievable, (ALARA). Individual dose reduction techniques using automated exposure control or adjustment of mA and/or kV according to the patient's size were employed. CLINICAL HISTORY: LUQ/LLQ pain COMPARISON: 12/16/2022 FINDINGS: Abdomen: The lung bases are clear. The liver parenchyma is homogeneous. The gallbladder is absent. There is mild intra and extrahepatic biliary ductal dilatation. There are calcifications in the head of the pancreas consistent with chronic pancreatitis. There is an aneurysm in the splenic hilum measuring 1 cm, stable. There is a left adrenal nodule measuring 1.2 cm, stable. The kidneys are unremarkable. There is no free fluid or adenopathy. Pelvis: The appendix is not identified. The urinary bladder is incompletely distended. There is no free fluid or adenopathy. IMPRESSION: Sequela of chronic pancreatitis. Stable left adrenal nodule, favor adenoma. 1 cm calcified splenic artery aneurysm. Reviewed, Interpreted and Dictated by Suman Hernandez MD Transcribed by Pily Izaguirre Authenticated and [facility]
--- NOTE | 2023-04-24 14:55 | HMH.EDGENADL ---
Discharge Plan Disposition Patient Disposition: Home, Self-Care Condition: Good Prescriptions Prescriptions: New cefdinir 300 mg capsule 300 mg PO BID 10 Days Qty: 20 0RF ondansetron HCl 4 mg tablet 4 mg PO Q8H PRN (Reason: nausea and vomiting) 4 Days Qty: 12 0RF No Action alprazolam [Xanax] 0.5 mg tablet 0.5 mg PO TID PRN (Reason: anxiety) Qty: 90 2RF clopidogrel 75 MG tablet 75 mg PO DAILY levothyroxine 75 MCG tablet 75 mcg PO DAILY empagliflozin 25 MG tablet 25 mg PO DAILY naloxegol 25 MG tablet 25 mg PO DAILY linaclotide 72 MCG capsule 72 mcg PO DAILY hydroxyzine HCl 25 mg tablet 25 mg PO BIDP PRN (Reason: anxiety) Qty: 10 0RF hydrocodone-acetaminophen 5-325 mg tablet 1 tab PO DAILY Qty: 30 0RF lidocaine 5 % adhesive patch,medicated 1 patch topical DAILY Rx Instructions: leave on most painful area for up to 12 hrs albuterol sulfate 8.5 GM HFA aerosol inhaler 2 puff inhalation Q4HP PRN (Reason: Wheezing) Qty: 1 0RF Referrals Follow up/Referrals: Lennie Kelley MD [Primary Care Provider] - See instructions Activity Restrictions/Add. Instructions Additional Instructions/Restrictions: You were evaluated in the emergency department today and diagnosed with a kidney infection. Please pick up man prescription for antibiotics to the pharmacy and take the full course as prescribed. I also sent in Zofran for you to have as needed for nausea and vomiting. Follow-up with your primary care provider over the next 3 days for reassessment. Return to the emergency department for new or worsening symptoms. Clinical Impressions Clinical Impression: Abdominal pain, Pyelonephritis Instructions Patient Instructions: DI for Kidney Infection Discharge ED Provider: Yissel Collins General Adult HPI <Medardo Jha MD - Last Filed: 04/24/23 15:01> General Chief complaint: PAIN Stated complaint: left rib pain unknown orgin Time Seen by Provider: 04/24/23 14:42 History of Present Illness HPI narrative: Patient is a 72-year-old female with past medical history of COPD, previous pyelonephritis, chronic smoker who presents to the emergency department for evaluation of pain. History is obtained by patient at bedside. Patient has had left lower quadrant pain for many months, moderate to severe in intensity, nonmodifiable. She does have a history of previous cholecystectomy and reported oophorectomy. She fell into her car approximately 4 weeks ago and has had indolent worsening left inferior thoracic cage pain. Due to persistent symptoms refractory to Tylenol she presents here for continued evaluation. Related Data Home Medications Medication Instructions Recorded Confirmed clopidogrel 75 mg tablet 75 mg PO DAILY Heart disease 08/15/20 02/01/23 empagliflozin 25 mg tablet 25 mg PO DAILY Diabetes 08/15/20 02/01/23 levothyroxine 75 mcg tablet 75 mcg PO DAILY Thyroid 08/15/20 02/01/23 linaclotide 72 mcg capsule 72 mcg PO DAILY IBS 08/15/20 02/01/23 naloxegol 25 mg tablet 25 mg PO DAILY Bowel 08/15/20 02/01/23 lidocaine 5 % topical patch 1 patch topical DAILY Pain 02/01/23 02/01/23 Previous Rx's Medication Instructions Recorded albuterol sulfate 90 mcg/actuation 2 puff inhalation Q4HP PRN 05/12/21 aerosol inhaler Wheezing #1 ea hydroxyzine HCl 25 mg tablet 25 mg PO BIDP PRN anxiety #10 tabs 07/05/22 hydrocodone 5 mg-acetaminophen 325 1 tab PO DAILY #30 tabs 02/01/23 mg tablet alprazolam 0.5 mg tablet (Xanax) 0.5 mg PO TID PRN anxiety #90 tabs 04/11/23 cefdinir 300 mg capsule 300 mg PO BID 10 days #20 caps 04/24/23 ondansetron HCl 4 mg tablet 4 mg PO Q8H PRN nausea and 04/24/23 vomiting 4 days #12 tabs Allergies Allergy/AdvReac Type Severity Reaction Status Date / Time cefaclor [From [facility]] Allergy Mild Verified 12/05/22 09:56 codeine Allergy Mild Verified 12/05/22 09:56 Sulfa (Sulfonamide Allergy Mild Verified 12/05/22 09:56 Antibiotics
[2023-04-24 15:08] LABS: Basophils % 0.5 % (0.1-2.0); Eosinophils # 0.1 K/mm3 (0.0-0.4); Eosinophils % 1.7 % (0.1-12.0); Hematocrit 37.3 % (37.0-47.0); Hemoglobin 12.9 g/dL (12.2-16.2); Lymphocytes # 1.9 K/mm3 (0.7-4.5); Mean Corpuscular HGB Conc 34.6 g/dL (31.8-35.4); Mean Corpuscular Hemoglobin 32.2 pg (27.0-31.2); Mean Corpuscular Volume 93.2 fl (81-99); Mean Platelet Volume 6.9 fl (7.4-10.4); Monocytes # 0.2 K/mm3 (0.1-1.0); Neutrophils # 3.8 K/mm3 (1.8-7.8); Neutrophils % 62.9 % (37.0-80.0); Platelet Count 226 K/mm3 (142-424); Red Cell Distribution Width 13.4 % (11.5-17.5)
[2023-04-24 15:14] LABS: Chloride 104 mmol/L (98-107); Sodium 141 mmol/L (136-145)
[2023-04-24 15:15] LABS: Potassium 4.2 mmoL/L (3.5-5.1)
[2023-04-24 15:17] LABS: Alanine Aminotransferase 36 U/L (12-78); Albumin Level 4.8 g/dl (3.5-5.0); Albumin/Globulin Ratio 1.4 (1.1-1.8); Alkaline Phosphatase 67 U/L (38-126); Anion Gap 14.2 mEq/L (5-15); Aspartate Amino Transferase 58 U/L (14-36); Bilirubin,Total 0.5 mg/dl (0.2-1.3); Blood Urea Nitrogen 18 mg/dl (7-17); Calcium 9.2 mg/dl (8.4-10.2); Carbon Dioxide 27 mmol/L (22.0-30.0); Creatinine Clearance Estimated 60 mL/min (50-200); Estimated Glomerular Filt Rate 70 ml/min (>60); GFR (African American) 85 ML/MIN (>60); Globulin 3.5 g/dL (1.3-3.2); Glucose 112 mg/dl (74-100); Lipase 69 U/L (23-300); Total Protein,Serum 8.3 g/dl (6.3-8.2)
[2023-04-24 15:20] LABS: Lactate Dehydrogenase 182 U/L (313-618)
--- NOTE | 2023-04-24 15:37 | PC.NURSE ---
Pt to CT
[2023-04-24 15:42] LABS: Appearance,Urine CLEAR (Clear); Bilirubin,Urine Negative (Negative); Blood, Urine Negative (Negative); Color,Urine YELLOW (Yellow); Glucose,Urine (UA) Negative (Negative); Ketones,Urine Negative (Negative); Leukocyte Esterase,Urine 1+ (Negative); Microscopic, Urine URINE MICROSCOPIC (MICROSCOPIC); Nitrate,Urine POSITIVE (Negative); Protein,Urine Negative (Negative); Specific Gravity, Urine 1.025 (1.005-1.030); Urobilinogen,Urine 0.2 EU/dl (0.2)
[2023-04-24 15:56] LABS: Bacteria,Urine 4+ /lpf; Squamous Epithelial Cell,Urine Occasional #/hpf (0-5)
--- NOTE | 2023-04-29 17:24 | PC.NURSE ---
urine results show e.coli/mixed urogenital jenny, pt given rocephin during ER visit, dc on cefdinir, aware, no further action
== END 2023-04-24 17:35 | disposition home or self-care (01) ==
PROVIDERS: Emergency Medicine; Emergency Provider Emergency Medicine; PCP Family Medicine
DX: R10.32 Left lower quadrant pain (principal); R07.81 Pleurodynia; J44.9 Chronic obstructive pulmonary disease, unspecified; I25.10 Atherosclerotic heart disease of native coronary artery without angina pectoris; E11.9 Type 2 diabetes mellitus without complications; E03.9 Hypothyroidism, unspecified; F17.200 Nicotine dependence, unspecified, uncomplicated
CPT/HCPCS: 71275; 74177; 80053; 81001; 83615; 83690; 85025; 87086; 96365; 96375; 96376; 99285; J0131; J0696; J2405; Q9967

== ENCOUNTER 2023-06-05 08:38 | Outpatient (CLI) | payer MEDICARE, SELFPAY ==
--- NOTE | 2023-06-05 08:44 | XR_ITS ---
FINAL REPORT CLINICAL HISTORY: left cts..pain FINDINGS: Left wrist Three views were obtained. There is no acute fracture or dislocation. The joint spaces appear normal. No soft tissue abnormality is identified. There is generalized osteopenia. IMPRESSION: No acute process. Reviewed, Interpreted and Dictated by Lucy Stanford MD Transcribed by Pily Izaguirre Authenticated and [facility]
--- NOTE | 2023-06-05 08:44 | XR_ITS ---
FINAL REPORT CLINICAL HISTORY: right cts..pain FINDINGS: Right wrist Three views were obtained. There is no acute fracture or dislocation. The joint spaces appear normal. No soft tissue abnormality is identified. There is generalized osteopenia. IMPRESSION: No acute process. Reviewed, Interpreted and Dictated by Lucy Stanford MD Transcribed by Pily Izaguirre Authenticated and [facility]
== END 2023-06-05 23:59 ==
LOC: RAD 08:39
PROVIDERS: PCP Family Medicine; Visit Provider Orthopaedic Surgery
DX: M25.532 Pain in left wrist (principal); M25.531 Pain in right wrist
CPT/HCPCS: 73110

== ENCOUNTER 2023-07-03 11:21 | Outpatient (CLI) | payer MEDICARE, SELFPAY ==
[2023-07-03 11:35] LABS: Alanine Aminotransferase 38 U/L (12-78); Albumin Level 4.5 g/dl (3.5-5.0); Albumin/Globulin Ratio 1.6 (1.1-1.8); Alkaline Phosphatase 72 U/L (38-126); Anion Gap 12.9 mEq/L (5-15); Aspartate Amino Transferase 49 U/L (14-36); Basophils % 0.5 % (0.1-2.0); Bilirubin,Total 0.6 mg/dl (0.2-1.3); Blood Urea Nitrogen 10 mg/dl (7-17); Carbon Dioxide 28 mmol/L (22.0-30.0); Chloride 104 mmol/L (98-107); Chol/HDL Ratio 4.5 (1-3.5); Cholesterol 161 mg/dl (140-200); Eosinophils # 0.2 K/mm3 (0.0-0.4); Eosinophils % 2.1 % (0.1-12.0); Estimated Glomerular Filt Rate 98 ml/min (>60); GFR (African American) 118 ML/MIN (>60); Globulin 2.8 g/dL (1.3-3.2); Glucose 203 mg/dl (74-100); HDL Cholesterol 36 mg/dl (40-60); Hematocrit 38.2 % (37.0-47.0); Hemoglobin 12.6 g/dL (12.2-16.2); Lymphocytes % 27.3 % (10-50); Mean Corpuscular HGB Conc 32.9 g/dL (31.8-35.4); Mean Corpuscular Hemoglobin 31.2 pg (27.0-31.2); Monocytes # 0.4 K/mm3 (0.1-1.0); Monocytes % 4.7 % (1.7-9.3); Neutrophils # 4.8 K/mm3 (1.8-7.8); Neutrophils % 65.4 % (37.0-80.0); Platelet Count 238 K/mm3 (142-424); Potassium 3.9 mmoL/L (3.5-5.1); Red Blood Count 4.02 M/mm3 (4.20-5.40); Red Cell Distribution Width 13.4 % (11.5-17.5); Sodium 141 mmol/L (136-145); Total Protein,Serum 7.3 g/dl (6.3-8.2); Triglycerides 313 mg/dl (30-150); VLDL Cholesterol 63 mg/dL (0-40); White Blood Count 7.4 K/mm3 (4.8-10.8)
[2023-07-03 11:46] LABS: C-Reactive Protein 3.5 mg/L (0-4)
[2023-07-03 11:52] LABS: 25-OH Vitamin D, Total 31.5 ng/mL (30-100)
[2023-07-03 12:05] LABS: Thyroid Stimulating Hormone < 0.02 uIU/mL (0.465-4.68)
[2023-07-03 14:07] LABS: Erythrocyte Sedimentation Rate 40 mm/hr (0-30)
[2023-07-03 17:20] LABS: Hemoglobin A1C 6.7 % (4.0-6.0)
== END 2023-07-03 23:59 ==
LOC: LAB.DROPOF 11:22
PROVIDERS: PCP Internal Medicine; Visit Provider Internal Medicine
DX: E03.9 Hypothyroidism, unspecified (principal); M81.0 Age-related osteoporosis without current pathological fracture; G56.00 Carpal tunnel syndrome, unspecified upper limb; F41.9 Anxiety disorder, unspecified; E11.9 Type 2 diabetes mellitus without complications; Z79.84 Long term (current) use of oral hypoglycemic drugs; Z79.899 Other long term (current) drug therapy
CPT/HCPCS: 80053; 80061; 82043; 82306; 83036; 84443; 85025; 85651; 86140

== ENCOUNTER 2023-07-30 18:55 | Outpatient (CLI) | payer MEDICARE, SELFPAY ==
[2023-07-30 19:53] LABS: Thyroid Stimulating Hormone < 0.02 uIU/mL (0.465-4.68)
== END 2023-07-30 23:59 ==
LOC: LAB.DROPOF 18:56
PROVIDERS: PCP Internal Medicine; Visit Provider Internal Medicine
DX: E05.90 Thyrotoxicosis, unspecified without thyrotoxic crisis or storm (principal)
CPT/HCPCS: 84443

== ENCOUNTER 2023-08-01 13:45 | Outpatient (CLI) | payer MEDICARE, SELFPAY ==
--- NOTE | 2023-08-01 13:46 | MR_ITS ---
FINAL REPORT CLINICAL HISTORY: lymph node under right mandible COMPARISON: 01/01/2023 FINDINGS: Multi planar MR imaging was obtained of the cervical spine with and without contrast. There is abnormal decreased signal throughout the cervical discs. The vertebrae are of normal height. There is no malalignment. The cervical cord demonstrates normal signal and configuration. C2-C3: There is no evidence of significant disc bulge or protrusion. There is no significant facet hypertrophy. C3-C4: There is no evidence of significant disc bulge or protrusion. There is no significant facet hypertrophy. C4-C5: Small midline disc protrusion. Mild spinal canal compromise. C5-C6: Moderate diffuse disc bulge. Endplate hypertrophy. Mild to moderate spinal canal compromise. High-grade bilateral neuroforaminal narrowing. C6-C7: Mild to moderate diffuse disc bulge. Moderate to high-grade bilateral neuroforaminal narrowing. C7-T1: There is no evidence of significant disc bulge or protrusion. There is no significant facet hypertrophy. There is no abnormal contrast enhancement. IMPRESSION: Disc bulges at C5-6 and C6-7 with significant bilateral neuroforaminal narrowing, similar to the prior study. Region of questionable lymph node not well-visualized in this [id number]. Reviewed, Interpreted and Dictated by Suman Hernandez MD Transcribed by Zeina Sofia Authenticated and . [facility]
--- NOTE | 2023-08-01 13:46 | MR_ITS ---
FINAL REPORT CLINICAL HISTORY: weight loss - swollen lymph node under right omaira FINDINGS: Multiplanar MR imaging of the brain was performed without and with contrast. There is moderate atrophy. There is [id number] scattered abnormal signal in the deep white matter. There is no evidence of intracranial hemorrhage or mass. No abnormal extra-axial fluid collection is seen. The ventricular size is within normal limits. There is no evidence of shift of the midline structures. The posterior fossa and brainstem have an unremarkable appearance. No area of abnormal restricted diffusion is identified. No abnormal contrast enhancement is seen. The 7th and 8th nerve root complexes are intact. IMPRESSION: Atrophy and chronic microvascular ischemia. Reviewed, Interpreted and Dictated by Suman Hernandez MD Transcribed by Pily Izaguirre Authenticated and . [facility]
[2023-08-01] MEDS: SODIUM CHLORIDE 0.9% 10ML SYR (RAD ONLY) 10 ML IV (15:21)
[2023-08-01] MEDS: GADOTERIDOL INJ 17ML SYRINGE 16 ML IV (15:22)
== END 2023-08-01 23:59 ==
LOC: RAD 13:46
PROVIDERS: PCP Internal Medicine; Visit Provider Internal Medicine
DX: R22.0 Localized swelling, mass and lump, head (principal); R63.4 Abnormal weight loss
CPT/HCPCS: 70553; 72156; 76376; A9576

== ENCOUNTER 2023-08-06 08:51 | Outpatient (CLI) | payer MEDICARE, SELFPAY ==
--- NOTE | 2023-08-06 08:52 | XR_ITS ---
FINAL REPORT CLINICAL HISTORY: Postmenopausal screen FINDINGS: Using L1-4, the bone mineral density of the spine is 1.028 g/cm2, corresponding to T-score of -0.2. Using the left hip, the bone mineral density of the femoral neck is 0.764 g/cm2, corresponding to a T-score of -1.5. IMPRESSION: Normal bone mineral density of the lumbar spine. Low bone density of the left hip. NOTE: T-score: Standard deviation compared with peak bone mass of young adult mean. *Following the recommendations of the International Society of Bone densitometry, classification of hip BMD is based on the lower of two T-scores; total hip or femoral neck. Reviewed, Interpreted and Dictated by Rico Pablo III, MD Transcribed by Monika Prado Authenticated and . [facility]
== END 2023-08-06 23:59 ==
LOC: RAD 08:52
PROVIDERS: PCP Internal Medicine; Visit Provider Internal Medicine
DX: M81.0 Age-related osteoporosis without current pathological fracture (principal)
CPT/HCPCS: 77080

== ENCOUNTER 2023-08-24 14:35 | Outpatient (CLI) | payer MEDICARE, SELFPAY ==
--- NOTE | 2023-08-24 14:35 | CT_ITS ---
FINAL REPORT TECHNIQUE: Thin section axial images were obtained from the lung apices to the upper abdomen by computed tomography. Reformatted images were obtained and reviewed. This study was performed with techniques to keep radiation doses al low as reasonably achievable (ALARA). Individualized dose reduction techniques using automated exposure control or adjustment of mA and/or kV according to the patient's size were employed. CLINICAL HISTORY: lung cancer screening smokes 1 pack per day x 50 yrs copd COMPARISON: CTA of the chest performed 04/24/2023 FINDINGS: CHEST CT LOW DOSE 73-year-old female, current smoker, [id number] history CTDI vol (mGy): 2.9 DLP (mGy-cm): 94.82 There is no axillary adenopathy. There is no mediastinal or hilar mass or adenopathy. The heart is normal in size. There is no pericardial or pleural effusion. There is mild emphysema and mild pulmonary scarring. Lung window images demonstrate a 4 mm right upper lobe nodule seen best on image #33 of series 4, stable since the prior LDCT. Limited images of the upper abdomen are unremarkable. IMPRESSION: Lung-RADS category 1. Recommend 12 month follow up low dose chest CT. Reviewed, Interpreted and Dictated by Suman Hernandez MD Transcribed by Maria Elena Duncan Authenticated and [facility]
== END 2023-08-24 23:59 ==
LOC: RAD 14:35
PROVIDERS: PCP Internal Medicine; Visit Provider Internal Medicine
DX: F17.210 Nicotine dependence, cigarettes, uncomplicated (principal); Z12.2 Encounter for screening for malignant neoplasm of respiratory organs
CPT/HCPCS: 71271

== ENCOUNTER 2023-08-27 18:00 | Outpatient (CLI) | payer MEDICARE, SELFPAY ==
[2023-08-27 18:54] LABS: Basophils # 0.1 K/mm3 (0-0.2); Basophils % 1.1 % (0.1-2.0); Eosinophils # 0.1 K/mm3 (0.0-0.4); Eosinophils % 1.4 % (0.1-12.0); Hematocrit 41.5 % (37.0-47.0); Hemoglobin 13.5 g/dL (12.2-16.2); Lymphocytes # 2.3 K/mm3 (0.7-4.5); Lymphocytes % 35.7 % (10-50); Mean Corpuscular HGB Conc 32.5 g/dL (31.8-35.4); Mean Corpuscular Hemoglobin 31.5 pg (27.0-31.2); Monocytes # 0.3 K/mm3 (0.1-1.0); Monocytes % 3.9 % (1.7-9.3); Neutrophils # 3.7 K/mm3 (1.8-7.8); Neutrophils % 57.9 % (37.0-80.0); Platelet Count 279 K/mm3 (142-424); Red Blood Count 4.27 M/mm3 (4.20-5.40); Red Cell Distribution Width 14.2 % (11.5-17.5); White Blood Count 6.4 K/mm3 (4.8-10.8)
[2023-08-27 20:10] LABS: Hemoglobin A1C 6.6 % (4.0-6.0)
[2023-08-27 20:48] LABS: Thyroid Stimulating Hormone 0.09 uIU/mL (0.465-4.68)
== END 2023-08-27 23:59 | disposition home or self-care (01) ==
LOC: LAB.DROPOF 08-28 09:07
PROVIDERS: PCP Internal Medicine; Visit Provider Internal Medicine
DX: R73.09 Other abnormal glucose (principal); R53.83 Other fatigue; R35.0 Frequency of micturition; B96.89 Other specified bacterial agents as the cause of diseases classified elsewhere
CPT/HCPCS: 83036; 84443; 85025; 87086

== ENCOUNTER 2023-10-01 15:13 | Emergency (ER) | payer MEDICARE, SELFPAY ==
[2023-10-01 16:10] VITALS: BP 137/80; PULSE 74; RESP 20; TEMP 36.6; O2SAT 99; BMI 27.6
--- NOTE | 2023-10-01 16:24 | EXP.UTC ---
Discharge Plan Disposition Patient Disposition: Home, Self-Care Condition: Good Prescriptions Prescriptions: New cefdinir 300 mg capsule 300 mg PO BID Qty: 20 0RF No Action atorvastatin 10 mg tablet 10 mg PO DAILY Patient Comments: TAKE 1 TABLET BY MOUTH EVERY DAY alprazolam 0.5 mg tablet 0.5 mg PO TID Patient Comments: TAKE 1 TABLET BY MOUTH THREE TIMES DAILY NEEDED FOR ANXIETY levothyroxine [Synthroid] 50 mcg tablet 50 mcg PO DAILY oxycodone 5 mg tablet 5 mg PO DAILY Patient Comments: TAKE 1 TABLET BY MOUTH EVERY 4 TO 6 HOURS NEEDED FOR PAIN Linzess 290 mcg capsule 290 mcg PO DAILY Patient Comments: TAKE 1 CAPSULE BY MOUTH EVERY DAY 30 MINUTES BEFORE FIRST MEAL OF THE DAY ON AN EMPTY STOMACH Rybelsus 3 mg tablet 1 mg PO DAILY Patient Comments: TAKE 1 TABLET BY MOUTH ONCE DAILY Referrals Follow up/Referrals: Mohsen Carrero DO [Primary Care Provider] - See instructions Mohsen Simpson MD [Staff Physician] - See instructions (Call office for appointment) Activity Restrictions/Add. Instructions Additional Instructions/Restrictions: *Increase fluids. Water not Soda or Tea *Start antibiotic immediately and be sure to take as ordered for the FULL length of time although you should start to see improvement over the next 48 hours *Be SURE to follow up anytime for new or worsening symptoms with your family doctor. AND in 48 hours for urine culture results with your family doctor, if you do not have a doctor then you may call back to the [facility] for urine culture results and further treatment. We do recommend that you choose and establish care with a Primary Care Physician. ?AND follow up with them ?in 10-14 days to repeat UA to ensure infection is resolved and blood no longer present *Be sure to let your PCP know that we sent urine cultures from the [facility] so they can follow up to ensure that you area the on the correct antibiotic Call your doctor office and make appointment for 48 hours (2 days from today) ?to follow up and get the results of your urine culture and further treatment Clinical Impressions Clinical Impression: Urinary tract infection Instructions Patient Instructions: DI for Urinary Tract Infection (UTI), Urinary Tract Infection, Cefdinir Discharge ED Provider: Sylvia [facility] [place] [facility] HPI General Stated complaint: possible uti Mode of Arrival: Ambulatory Source of Information: Patient Limitations: No Limitations Time Seen by Provider: 10/01/23 16:26 Description of Symptoms (Recalled from Triage Doc. by RN): PATIENT C/O BURNING AND PAIN WITH URINATION AND LEFT FLANK PAIN X 2 WEEKS HEENT Symptoms (Recalled from RN notes): No Resp Symptoms (Recalled from RN notes): No Skin Symptoms (Recalled from RN notes): No MS Symptoms (Recalled from RN notes): No Functional Status (Recalled from RN notes): WNL History of Present Illness Provider Complaint: Patient states that for the last 2 weeks she has been having pain in her left flank area and burning with urination for about 2 weeks States that she seen her PCP back the end of August and took all the medication but now the pain is back and again having burning with urination and feeling of urgency and frequency so today she came in to get checked Related Data Home Medications Medication Instructions Recorded Confirmed alprazolam 0.5 mg tablet 0.5 mg PO TID 10/01/23 10/01/23 atorvastatin 10 mg tablet 10 mg PO DAILY 10/01/23 10/01/23 levothyroxine 50 mcg tablet 50 mcg PO DAILY 10/01/23 10/01/23 (Synthroid) linaclotide 290 mcg capsule 290 mcg PO DAILY 10/01/23 10/01/23 (Linzess) oxycodone 5 mg tablet 5 mg PO DAILY 10/01/23 10/01/23 semaglutide 3 mg tablet (Rybelsus) 1 mg PO DAILY 10/01/23 10/01/23 Previous Rx's Medication Instructions Recorded cefdinir 300 mg capsule 300 mg PO BID #20 caps 10/01/23 Allergies Allergy/AdvReac Type Severity Reaction Status Date / Time cefaclor [From Ceclor] Allergy Mild Verified 08/27/23 13:26 codeine Allergy Mild Verified 08/27/23 13:26 Sulfa (Sulfonamide Allergy Mild Verified 08/27/23 13:26 Antibiotics) Worker's Comp Is this a Worker's Comp case?: No [facility] Disclaimer: The information contained in this section may have been updated after the patient was seen, as this information can be updated by other users. Medical History Hyperlipidemia Lipid panel returns with a triglyceride of 313, cholesterol 161, LDL of 32 and HDL 36. LDL is excellent, HDL could come up a little bit, and the triglycerides are elevated but this is a nonfasting lipid panel. Will continue her on the atorvastatin at 10 mg/day. Hypothyroidism TSH done in July of 2022 was 0.13, and follow-up TSH done June 2023 was less than 0.02. Patient has continued to take 75 mcg of levothyroxine when I had decrease this to 50 mcg. Will check a TSH today although I think this is going to be high and will check it again in 4 weeks when I see her back when she has been on a months worth of 50 mcg. Diabetes We have not done an HbA1c nor microalbumin and this patient. Again something that should have been done at previous visits. Will check this at her next visit. CAD (coronary artery disease) Anxiety Anuja Weston is following this patient and is writing for the alprazolam. Will leave this up to her at this point. COPD (chronic obstructive pulmonary disease) Panic disorder Surgical History History of hysterectomy History of cholecystectomy History of thyroidectomy Family History Other No significant family history Social History Smoking Status: Current every day smoker alcohol intake: never current occupational status: retired Travel in the last 8 weeks: None ROS Obtained: Yes All systems reviewed & no additional complaints except as documented and Yes Systems reviewed as appropriate & no additional complaints except as documented Constitutional Constitutional: Reports system reviewed and no additional complaints, except as documented, Reports as per HPI, Denies body ache, Denies chills, Denies fever(s) and Denies headache(s) ENT Ears, Nose, Mouth, and Throat: Reports system reviewed and no additional complaints, except as documented, Reports as per HPI and Denies headache(s) Cardiovascular Cardiovascular: Reports system reviewed and no additional complaints, except as documented and Reports as per HPI Respiratory Respiratory: Reports system reviewed and no additional complaints, except as documented and Reports as per HPI Gastrointestinal Gastrointestingal: Reports system reviewed and no additional complaints, except as documented and as per HPI Genitourinary Female Genitourinary: Reports system reviewed and no additional complaints, except as documented, Reports as per HPI, Reports dysuria, Reports flank pain (left), Reports urinary frequency and Reports urinary urgency Musculoskeletal Musculoskeletal: Reports system reviewed and no additional complaints, except as documented, Reports as per HPI and Reports other Neurologic Neurologic: Denies headache(s) Physical Exam General General appearance: alert and in no apparent distress Respiratory Respiratory exam: Present normal lung sounds bilaterally; Absent respiratory distress or wheezes Cardiovascular Cardiovascular exam: Present regular rate, normal rhythm and normal heart sounds Neurological Exam Neurological exam: Present alert, oriented X3 and normal gait Medical Decision Making Marvin Inquiry Pt receiving controlled substance: No Marvin was queried for this patient: No Vital Signs: 10/01/23 16:10 Temperature 97.9 F Temperature Source Oral Pulse Rate [Left Brachial] 74 Respiratory Rate 20 Blood Pressure [Left Arm] 137/80 Blood Pressure Mean [Left Arm] 99 Blood Pressure Source [Left Arm] Automatic Cuff Blood Pressure Position [Left Arm] Sitting 02 Sat by Pulse Oximetry 99 Oxygen Delivery Method Room Air Orders (Tests/Meds): ORDERS Category Date Time Status Urine Culture Stat Micro 10/01/23 16:22 Ordered Medical Decision Narrative: Patient states that she is allergic to Cefaclor but in Dec she took Cefdnir and did not have any complications or reactions Medications discussed with pharmacy Patient had Iv Ceftriaxone and was prescribed Cefdnir in which patient states that she took without complications or reactions
[2023-10-01 16:25] LABS: Apearance,Urine Cloudy (Clear); Color,Urine Dark Yellow (Yellow); Protein,Urine Negative (Negative)
[2023-10-01 16:26] LABS: Bilirubin,Urine Negative (Negative); Blood, Urine Trace (Negative); Glucose,Urine (UA) Negative (Negative); Ketones,Urine Negative (Negative); UTC Leukocyte Esterase,Urine 1+ (Negative); UTC Nitrate,Urine Positive (Negative); Urobilinogen,Urine 0.2 EU/dl (0.2)
[2023-10-01 16:54] VITALS: BP 137/80; PULSE 74; RESP 20; TEMP 36.6; O2SAT 99
== END 2023-10-01 16:59 | disposition home or self-care (01) ==
PROVIDERS: Emergency Provider Nurse Practitioner; PCP Internal Medicine
DX: N39.0 Urinary tract infection, site not specified (principal); B96.29 Other Escherichia coli [E. coli] as the cause of diseases classified elsewhere; R10.32 Left lower quadrant pain; M54.59 Other low back pain; R30.0 Dysuria; R35.0 Frequency of micturition
CPT/HCPCS: 81003; 87086; 87088; 87186; 99204; 99212; G0463

== ENCOUNTER 2023-10-05 15:06 | Emergency (ER) | payer MEDICARE, SELFPAY ==
[2023-10-05 15:07] VITALS: BP 122/72; PULSE 81; RESP 18; TEMP 37.1; O2SAT 95; BMI 27.3
[2023-10-05 15:23] VITALS: BP 122/72; PULSE 78; RESP 16; O2SAT 95
[2023-10-05 15:37] LABS: Microscopic, Urine URINE MICROSCOPIC (MICROSCOPIC)
[2023-10-05 15:38] VITALS: BP 125/74; PULSE 73; RESP 16; O2SAT 94
[2023-10-05 15:39] LABS: Appearance,Urine CLEAR (Clear); Bilirubin,Urine Negative (Negative); Blood, Urine Negative (Negative); Color,Urine YELLOW (Yellow); Glucose,Urine (UA) Negative (Negative); Ketones,Urine Negative (Negative); Leukocyte Esterase,Urine TRACE (Negative); Nitrate,Urine Negative (Negative); Protein,Urine Negative (Negative); Specific Gravity, Urine 1.015 (1.005-1.030); Urobilinogen,Urine 0.2 EU/dl (0.2)
[2023-10-05 15:45] LABS: Basophils # 0.1 K/mm3 (0-0.2); Basophils % 1.3 % (0.1-2.0); Eosinophils # 0.1 K/mm3 (0.0-0.4); Eosinophils % 1.8 % (0.1-12.0); Hematocrit 39.1 % (37.0-47.0); Hemoglobin 12.7 g/dL (12.2-16.2); Lymphocytes # 2.3 K/mm3 (0.7-4.5); Lymphocytes % 37.8 % (10-50); Mean Corpuscular HGB Conc 32.6 g/dL (31.8-35.4); Mean Corpuscular Volume 95.1 fl (81-99); Mean Platelet Volume 8.2 fl (7.4-10.4); Monocytes # 0.3 K/mm3 (0.1-1.0); Monocytes % 4.9 % (1.7-9.3); Neutrophils # 3.4 K/mm3 (1.8-7.8); Neutrophils % 54.2 % (37.0-80.0); Platelet Count 236 K/mm3 (142-424); Red Blood Count 4.11 M/mm3 (4.20-5.40); Red Cell Distribution Width 14.7 % (11.5-17.5); White Blood Count 6.2 K/mm3 (4.8-10.8)
[2023-10-05 15:48] LABS: Chloride 102 mmol/L (98-107); Sodium 140 mmol/L (136-145)
[2023-10-05 15:50] LABS: Alanine Aminotransferase 38 U/L (12-78); Aspartate Amino Transferase 65 U/L (14-36); Blood Urea Nitrogen 12 mg/dl (7-17); Creatinine Clearance Estimated 61 mL/min (50-200); Estimated Glomerular Filt Rate 82 ml/min (>60); GFR (African American) 99 ML/MIN (>60); Lipase 26 U/L (23-300)
[2023-10-05 15:51] LABS: Albumin Level 4.5 g/dl (3.5-5.0); Albumin/Globulin Ratio 1.1 (1.1-1.8); Alkaline Phosphatase 61 U/L (38-126); Bilirubin,Total 0.6 mg/dl (0.2-1.3); Carbon Dioxide 31 mmol/L (22.0-30.0); Glucose 93 mg/dl (74-100); Total Protein,Serum 8.5 g/dl (6.3-8.2)
--- NOTE | 2023-10-05 15:54 | CT_ITS ---
FINAL REPORT TECHNIQUE: Axial images through the abdomen and pelvis were performed. This study was performed with techniques to keep radiation doses as low as reasonably achievable, (ALARA). Individualized dose reduction techniques using automated exposure control or adjustment of mA and/or kV according to the patient's size were employed. CLINICAL HISTORY: left sided abd pain COMPARISON: 04/24/2023 FINDINGS: CT ABDOMEN AND PELVIS WITH CONTRAST: A 15 mm left adrenal nodule is present, nonspecific, and stable when compared to the prior exam of 2022. This likely represents an adrenal adenoma. The liver, spleen, pancreas, and kidneys are otherwise unremarkable in appearance. There is a heavily calcified 12 mm splenic artery aneurysm noted. The gallbladder has been surgically resected. There is no evidence of biliary ductal dilatation. No bowel obstruction is identified. The appendix is not seen, and may have been removed at the time of hysterectomy. No evidence of pelvic bowel obstruction or inflammation is seen. IMPRESSION: No acute abnormality identified. Reviewed, Interpreted and Dictated by Lucy Stanford MD Transcribed by Maria Elena Duncan Authenticated and [facility]
--- NOTE | 2023-10-05 15:55 | ED_ITS ---
Discharge Plan Disposition Patient Disposition: Home, Self-Care Prescriptions Prescriptions: No Action atorvastatin 10 mg tablet 10 mg PO DAILY Patient Comments: TAKE 1 TABLET BY MOUTH EVERY DAY alprazolam 0.5 mg tablet 0.5 mg PO TID Patient Comments: TAKE 1 TABLET BY MOUTH THREE TIMES DAILY NEEDED FOR ANXIETY levothyroxine [Synthroid] 50 mcg tablet 50 mcg PO DAILY oxycodone 5 mg tablet 5 mg PO DAILY Patient Comments: TAKE 1 TABLET BY MOUTH EVERY 4 TO 6 HOURS NEEDED FOR PAIN Linzess 290 mcg capsule 290 mcg PO DAILY Patient Comments: TAKE 1 CAPSULE BY MOUTH EVERY DAY 30 MINUTES BEFORE FIRST MEAL OF THE DAY ON AN EMPTY STOMACH Rybelsus 3 mg tablet 1 mg PO DAILY Patient Comments: TAKE 1 TABLET BY MOUTH ONCE DAILY cefdinir 300 mg capsule 300 mg PO BID Qty: 20 0RF Referrals Follow up/Referrals: Mohsen Carrero DO [Primary Care Provider] - See instructions Activity Restrictions/Add. Instructions Additional Instructions/Restrictions: Your labs and CAT scan were unremarkable from an emergency standpoint. There remains diagnostic uncertainty but no obvious surgical abnormality or emergent medical condition identified that would require further intervention or hospitalization. I recommend you closely follow-up with your primary care doctor return to the emergency department with any significant worsening or persistent symptoms. Clinical Impressions Clinical Impression: Left sided abdominal pain Instructions Patient Instructions: DI for Acute Abdominal Pain Discharge ED Provider: Lito Nagel General Adult HPI General Chief complaint: Abdominal Pain Stated complaint: back pain, frequent urination Time Seen by Provider: 10/05/23 15:50 Mode of Arrival: Ambulatory Source of Information: Patient Limitations: No Limitations Description of Symptoms (Recalled from ER Triage Doc. by RN): pt presents to ED c/o left flank pain that radiates to left lower quadrant. pt states she was treated for an UTI on 09/02 [facility]. pt states antibiotics didn't work so she was started on Cefdinir on 09/30. pt denies known fever but reports chills. History of Present Illness HPI narrative: Patient is a 73-year-old female with a history of diverticulitis who presents today with left flank left upper quadrant left lower quadrant abdominal pain over the last several days. States that she has not had any urinary frequency urgency or dysuria. States she has had some constipation denies any diarrhea or blood in her stool. Had a colonoscopy in 2020 which was unremarkable. Denies any respiratory complaints. No history of kidney stones. She has had a total hysterectomy in the past. Related Data Home Medications Medication Instructions Recorded Confirmed alprazolam 0.5 mg tablet 0.5 mg PO TID 10/01/23 10/01/23 atorvastatin 10 mg tablet 10 mg PO DAILY 10/01/23 10/01/23 levothyroxine 50 mcg tablet 50 mcg PO DAILY 10/01/23 10/01/23 (Synthroid) linaclotide 290 mcg capsule 290 mcg PO DAILY 10/01/23 10/01/23 (Linzess) oxycodone 5 mg tablet 5 mg PO DAILY 10/01/23 10/01/23 semaglutide 3 mg tablet (Rybelsus) 1 mg PO DAILY 10/01/23 10/01/23 Previous Rx's Medication Instructions Recorded cefdinir 300 mg capsule 300 mg PO BID #20 caps 10/01/23 Allergies Allergy/AdvReac Type Severity Reaction Status Date / Time cefaclor [From Ceclor] Allergy Mild Verified 08/27/23 13:26 codeine Allergy Mild Verified 08/27/23 13:26 Sulfa (Sulfonamide Allergy Mild Verified 08/27/23 13:26 Antibiotics) [facility] Disclaimer: The information contained in this section may have been updated after the patient was seen, as this information can be updated by other users. Medical History Hyperlipidemia Lipid panel returns with a triglyceride of 313, cholesterol 161, LDL of 32 and HDL 36. LDL is excellent, HDL could come up a little bit, and the triglycerides are elevated but this is a nonfasting lipid panel. Will continue her on the atorvastatin at 10 mg/day. Hypothyroidism TSH done in July of 2022 was 0.13, and follow-up TSH done June 2023 was less than 0.02. Patient has continued to take 75 mcg of levothyroxine when I had decrease this to 50 mcg. Will check a TSH today although I think this is going to be high and will check it again in 4 weeks when I see her back when she has been on a months worth of 50 mcg. Diabetes We have not done an HbA1c nor microalbumin and this patient. Again something that should have been done at previous visits. Will check this at her next visit. CAD (coronary artery disease) Anxiety Anuja Weston is following this patient and is writing for the alprazolam. Will leave this up to her at this point. COPD (chronic obstructive pulmonary disease) Panic disorder Surgical History History of hysterectomy History of cholecystectomy History of thyroidectomy Family History Other No significant family history Social History Smoking Status: Current every day smoker alcohol intake: never current occupational status: retired Travel in the last 8 weeks: None ROS Obtained: Yes All systems reviewed & no additional complaints except as documented Physical Exam General General appearance: alert and in no apparent distress Respiratory Respiratory exam: Present normal lung sounds bilaterally Cardiovascular Cardiovascular exam: Present regular rate and normal rhythm Abdominal Exam Abdominal exam: Present soft and tenderness (Left upper and left lower quadrant abdominal tenderness to palpation no rebound or guarding no masses felt) Neurological Exam Neurological exam: Present alert and oriented X3 Medical Decision Making Marvin Inquiry Pt receiving controlled substance: No Vital Signs: 10/05/23 15:07 10/05/23 15:23 10/05/23 15:38 Temperature 98.7 F Temperature Source Oral Pulse Rate 78 73 Pulse Rate [Right Radial] 81 Respiratory Rate 18 16 16 Blood Pressure 122/72 125/74 Blood Pressure [Right Arm] 122/72 Blood Pressure Mean 97 97 Blood Pressure Mean [Right Arm] 88 Blood Pressure Source [Right Arm] Automatic Cuff Blood Pressure Position [Right Arm] Sitting 02 Sat by Pulse Oximetry 95 95 94 L Oxygen Delivery Method Room Air 10/05/23 16:00 10/05/23 16:30 Temperature Temperature Source Pulse Rate 67 69 Pulse Rate [Right Radial] Respiratory Rate 18 20 Blood Pressure 130/78 124/71 Blood Pressure [Right Arm] Blood Pressure Mean 107 100 Blood Pressure Mean [Right Arm] Blood Pressure Source [Right Arm] Blood Pressure Position [Right Arm] 02 Sat by Pulse Oximetry 95 99 Oxygen Delivery Method Lab Data Lab results reviewed: Yes I reviewed the patient's lab results. Lab Results 10/05/23 15:30: WBC 6.2, RBC 4.11 L, Hgb 12.7, Hct 39.1, MCV 95.1, MCH 31.0, MCHC 32.6, RDW 14.7, Plt Count 236, MPV 8.2, Neut % (Auto) 54.2, Lymph % (Auto) 37.8, Forrest % (Auto) 4.9, Eos % (Auto) 1.8, Baso % (Auto) 1.3, Neut # (Auto) 3.4, Lymph # (Auto) 2.3, Forrest # (Auto) 0.3, Eos # (Auto) 0.1, Baso # (Auto) 0.1, Sodium 140, Potassium 4.0, Chloride 102, Carbon Dioxide 31 H, Anion Gap 11.0, BUN 12, Creatinine 0.70, Estimated Creat Clear 61, Estimated GFR 82, Est GFR ( Amer) 99, Glucose 93, Calcium 10.0, Total Bilirubin 0.6, AST 65 H, ALT 38, Alkaline Phosphatase 61, Total Protein 8.5 H, Albumin 4.5, Globulin 4.0 H, Albumin/Globulin Ratio 1.1, Lipase 26 10/05/23 15:34: Urine Color Yellow, Urine Appearance Clear, Urine pH 6.0, Ur Specific Raymond 1.015, Urine Protein Negative, Urine Glucose (UA) Negative, Urine Ketones Negative, Urine Blood Negative, Urine Nitrate Negative, Urine Bilirubin Negative, Urine Urobilinogen 0.2, Ur Leukocyte Esterase Trace, Urine RBC None, Urine WBC Occasional, Ur Squamous Epith Cells Occasional, Urine Bacteria Trace 10/05/23 16:00: Lactate 0.8 10/05/23 15:30 10/05/23 15:30 Orders (Tests/Meds): ED MEDICATIONS Generic Name Dose Route Start Last Admin Trade Name Freq PRN Reason Stop Dose Admin Sodium Chloride 10 ml 10/05/23 15:30 Sodium Chloride 0.9% 10ml Flush Syringe IV 11/04/23 15:29 NEEDED PRN Maintain IV Site Discontinued Medications Generic Name Dose Route Start Last Admin Trade Name Freq PRN Reason Stop Dose Admin Lactated Ringer's 1,000 mls @ 999 mls/hr 10/05/23 16:00 10/05/23 15:56 Lactated Ringer's 1000 Ml Bag IV 10/05/23 17:00 999 mls/hr .Q1H1M FANTA Administration Iopamidol 75 ml 10/05/23 16:20 10/05/23 16:22 Iopamidol-370 (76%);100ml Bottle IV 10/05/23 16:21 75 ml ONCE ONE Administration Morphine Sulfate 4 mg 10/05/23 15:54 10/05/23 15:57 Morphine 4mg/Ml Syringe IV 10/05/23 15:55 4 mg ONCE ONE Administration Ondansetron HCl 4 mg 10/05/23 15:54 10/05/23 15:56 Ondansetron 4mg/2ml Vial IV 10/05/23 15:55 4 mg ONCE ONE Administration Sodium Chloride 10 ml 10/05/23 16:20 10/05/23 16:21 Sodium Chloride 0.9% 10ml Syr (Rad Only) IV 10/05/23 16:21 10 ml ONCE ONE Administration ORDERS Category Date Time Status CT abdomen pelvis w con Stat Cat Scan 10/05/23 15:54 Completed Complete Blood Count Auto Diff Stat Lab 10/05/23 15:30 Completed Comprehensive Metabolic Panel Stat Lab 10/05/23 15:30 Completed Lactic Acid Stat Lab 10/05/23 16:00 Completed Lipase Stat Lab 10/05/23 15:30 Completed Urinalysis and Microscopic Stat Lab 10/05/23 15:34 Completed Medical Decision Narrative: 73-year-old with left upper and left lower quadrant abdominal pain and tenderness differential includes diverticulitis, constipation, mesenteric ischemia, malignancy, kidney stone etc. Will get a contrasted CT scan for further evaluation in addition to labs and I will administer IV fluids pain medicine nausea medicine will reassess Reassessment 5:25 PM patient serial abdominal exams are benign she is still having some discomfort. CT scan performed which I first interpreted also reviewed radiology read there is no acute surgical or significant abnormality noted on the CT scan. Labs also unremarkable aside from trace leukocyte Estrace and whites and bacteria. She has already been on nitrofurantoin and is currently taking cefdinir. Will not escalate that further as that should be adequate if she does not fact have a urinary tract infection. There is some diagnostic uncertainty is no obvious cause of her abdominal pain was identified but I do not believe she needs surgical evaluation hospitalization etc. She is been advised to follow-up closely with her primary care doctor and return with any significant worsening of her symptoms. Critical Care Critical Care Time Critical Care Time: No
[2023-10-05 15:56] LABS: Bacteria,Urine Trace /lpf; Squamous Epithelial Cell,Urine Occasional #/hpf (0-5); WBC,Urine Occasional #/hpf (0-3)
[2023-10-05] MEDS: LACTATED RINGERS 1000ML 1,000 ML 999 ML IV (15:56)
[2023-10-05] MEDS: ONDANSETRON 4MG/2ML VIAL 4 MG IV (15:56)
[2023-10-05] MEDS: MORPHINE 4MG/ML SYRINGE 4 MG IV (15:57)
[2023-10-05 16:00] VITALS: BP 130/78; PULSE 67; RESP 18; O2SAT 95
[2023-10-05 16:20] LABS: Lactic Acid 0.8 mmol/L (0.7-2.1)
[2023-10-05] MEDS: SODIUM CHLORIDE 0.9% 10ML SYR (RAD ONLY) 10 ML IV (16:21)
[2023-10-05] MEDS: IOPAMIDOL-370 (76%);100ML BOTTLE 75 ML IV (16:22)
[2023-10-05 16:30] VITALS: BP 124/71; PULSE 69; RESP 20; O2SAT 99
[2023-10-05 17:35] VITALS: BP 122/72; PULSE 75; RESP 18; TEMP 36.8; O2SAT 96
== END 2023-10-05 17:38 | disposition home or self-care (01) ==
PROVIDERS: Emergency Provider Student in an Organized Health Care Education/Training Program; PCP Internal Medicine
DX: R10.12 Left upper quadrant pain (principal); R10.32 Left lower quadrant pain; M54.59 Other low back pain; J44.9 Chronic obstructive pulmonary disease, unspecified; F17.210 Nicotine dependence, cigarettes, uncomplicated; E11.9 Type 2 diabetes mellitus without complications; E03.9 Hypothyroidism, unspecified; E78.5 Hyperlipidemia, unspecified; Z79.84 Long term (current) use of oral hypoglycemic drugs
CPT/HCPCS: 74177; 80053; 81001; 83605; 83690; 85025; 96361; 96374; 96375; 99285; J2405; J7120; Q9967

== ENCOUNTER 2023-10-30 15:45 | Outpatient (CLI) | payer MEDICARE, SELFPAY | END 2023-10-30 23:59 | disposition home or self-care (01) | LOC: LAB.DROPOF 15:46 | PROVIDERS: PCP Obstetrics & Gynecology; Visit Provider Obstetrics & Gynecology | DX: N12 Tubulo-interstitial nephritis, not specified as acute or chronic (principal) | CPT/HCPCS: 87086 ==

== ENCOUNTER 2023-11-12 16:00 | Outpatient (CLI) | payer MEDICARE, SELFPAY ==
[2023-11-18 00:07] LABS: Atopobium vaginae Low - 0 Score (.); BVAB2 Low - 0 Score (.); Candida albicans NAA Negative (Negative); Candida glabrata Negative (Negative); Chlamydia Trachomatis NAA Negative (Negative); HSV 1 NAA Negative (Negative); HSV 2 NAA Negative (Negative); Megasphaera 1 Low - 0 Score (.); Neisseria gonorrhoeae NAA Negative (Negative); Trich vag NAA Negative (Negative)
== END 2023-11-12 23:59 | disposition home or self-care (01) ==
LOC: LAB.DROPOF 16:00
PROVIDERS: PCP Urology; Visit Provider Urology
DX: N89.8 Other specified noninflammatory disorders of vagina (principal); N39.3 Stress incontinence (female) (male); N32.81 Overactive bladder
CPT/HCPCS: 87491; 87529; 87591; 87661; 87798; 87801

== ENCOUNTER 2023-11-29 09:20 | Outpatient (CLI) | payer MEDICARE, SELFPAY ==
[2023-11-29 18:27] LABS: Basophils # 0.1 K/mm3 (0-0.2); Basophils % 1.1 % (0.1-2.0); Eosinophils # 0.1 K/mm3 (0.0-0.4); Eosinophils % 2.3 % (0.1-12.0); Hemoglobin 12.1 g/dL (12.2-16.2); Lymphocytes # 1.6 K/mm3 (0.7-4.5); Mean Corpuscular HGB Conc 33.5 g/dL (31.8-35.4); Mean Corpuscular Hemoglobin 32.9 pg (27.0-31.2); Mean Corpuscular Volume 98.3 fl (81-99); Mean Platelet Volume 8.8 fl (7.4-10.4); Monocytes # 0.3 K/mm3 (0.1-1.0); Monocytes % 5.9 % (1.7-9.3); Neutrophils # 2.6 K/mm3 (1.8-7.8); Neutrophils % 56.8 % (37.0-80.0); Platelet Count 226 K/mm3 (142-424); Red Blood Count 3.66 M/mm3 (4.20-5.40); Red Cell Distribution Width 14.5 % (11.5-17.5); White Blood Count 4.6 K/mm3 (4.8-10.8)
[2023-11-29 19:04] LABS: Alanine Aminotransferase 27 U/L (12-78); Albumin Level 3.8 g/dl (3.5-5.0); Albumin/Globulin Ratio 1.1 (1.1-1.8); Alkaline Phosphatase 73 U/L (38-126); Anion Gap 10.8 mEq/L (5-15); Aspartate Amino Transferase 41 U/L (14-36); Bilirubin,Total 0.5 mg/dl (0.2-1.3); Blood Urea Nitrogen 12 mg/dl (7-17); Calcium 9.7 mg/dl (8.4-10.2); Carbon Dioxide 28 mmol/L (22.0-30.0); Chloride 105 mmol/L (98-107); Chol/HDL Ratio 7.4 (1-3.5); Cholesterol 265 mg/dl (140-200); Estimated Glomerular Filt Rate 70 ml/min (>60); GFR (African American) 85 ML/MIN (>60); Globulin 3.5 g/dL (1.3-3.2); Glucose 118 mg/dl (74-100); HDL Cholesterol 36 mg/dl (40-60); Potassium 3.8 mmoL/L (3.5-5.1); Sodium 140 mmol/L (136-145); Total Protein,Serum 7.3 g/dl (6.3-8.2); Triglycerides 333 mg/dl (30-150); VLDL Cholesterol 67 mg/dL (0-40)
[2023-11-29 19:20] LABS: Free T4 (Free Thyroxine) 0.64 ng/dl (0.78-2.19)
[2023-11-29 19:35] LABS: Thyroid Stimulating Hormone 0.85 uIU/mL (0.465-4.68)
[2023-11-29 19:46] LABS: Hemoglobin A1C 5.9 % (4.0-6.0)
[2023-12-01 11:48] LABS: Thyroid Peroxidase Antibodies <9 IU/mL (0-34)
[2023-12-01 12:10] LABS: Triiodothyronine (T3) Free 1.8 pg/mL (2.0-4.4)
[2023-12-03 18:10] LABS: Thyroglobulin Level <1.0 IU/mL (0.0-0.9)
== END 2023-11-29 23:59 | disposition home or self-care (01) ==
LOC: LAB.DROPOF 11-30 09:20
PROVIDERS: PCP Internal Medicine; Visit Provider Internal Medicine
DX: E03.9 Hypothyroidism, unspecified (principal); R63.4 Abnormal weight loss; E78.5 Hyperlipidemia, unspecified; E11.69 Type 2 diabetes mellitus with other specified complication; Z79.84 Long term (current) use of oral hypoglycemic drugs; Z68.27 Body mass index [BMI] 27.0-27.9, adult
CPT/HCPCS: 80050; 80053; 80061; 83036; 84439; 84443; 84481; 85025; 86376; 86800

== ENCOUNTER 2023-12-11 10:19 | Outpatient (CLI) | payer MEDICARE, SELFPAY ==
[2023-12-11 11:37] LABS: Anion Gap 13.8 mEq/L (5-15); Blood Urea Nitrogen 13 mg/dl (7-17); Calcium 9.7 mg/dl (8.4-10.2); Carbon Dioxide 27 mmol/L (22.0-30.0); Chloride 104 mmol/L (98-107); Estimated Glomerular Filt Rate 82 ml/min (>60); GFR (African American) 99 ML/MIN (>60); Glucose 117 mg/dl (74-100); Magnesium 1.7 mg/dl (1.6-2.3); Potassium 3.8 mmoL/L (3.5-5.1); Sodium 141 mmol/L (136-145)
== END 2023-12-11 23:59 | disposition home or self-care (01) ==
LOC: LAB 10:20
PROVIDERS: PCP Internal Medicine; Visit Provider Nurse Practitioner Family
DX: R00.2 Palpitations (principal); R60.0 Localized edema; R94.31 Abnormal electrocardiogram [ECG] [EKG]; R07.9 Chest pain, unspecified; E78.2 Mixed hyperlipidemia; E11.8 Type 2 diabetes mellitus with unspecified complications; Z79.84 Long term (current) use of oral hypoglycemic drugs; Z72.0 Tobacco use; Z01.810 Encounter for preprocedural cardiovascular examination
CPT/HCPCS: 36415; 80048; 83735; 93225; 93227

== ENCOUNTER 2023-12-13 11:08 | Outpatient (CLI) | payer MEDICARE, SELFPAY | END 2023-12-13 23:59 | disposition home or self-care (01) | LOC: RT 11:09 | PROVIDERS: PCP Internal Medicine; Visit Provider Physician Assistant | DX: R00.2 Palpitations (principal) | CPT/HCPCS: 93270 ==

== ENCOUNTER 2023-12-21 08:10 | Day surgery (SDC) | payer MEDICARE, SELFPAY ==
[2023-12-19 17:07] VITALS: BMI 26.6
[2023-12-21 08:36] VITALS: BP 113/62; RESP 18; TEMP 36.5; O2SAT 96; BMI 26.6
[2023-12-21 08:46] LABS: POC Glucose,Bedside 100 (70-110)
[2023-12-21] MEDS: LIDOCAINE 2% UROJET 10ML 10 ML UR (09:06)
[2023-12-21] MEDS: LACTATED RINGERS 1000ML 1,000 ML 25 ML IV (09:06)
--- NOTE | 2023-12-21 09:06 | P.PCN_ITS ---
[facility] Procedure Note Date: 12/21/23 Time: 09:06 Procedure Note:: Chart review: The diabetic patient is troubled with recurrent urinary tract infection and mild stress urinary incontinence. She comes on Estrace, Macrobid, and oxybutynin. She has a painful bladder. Preop diagnosis recurrent UTI Postop diagnosis recurrent UTI Operative Note: The patient was brought to the cystoscopy suite. She is prepped and draped in the standard fashion. She was catheterized for urine culture and sensitivity however there was no urine in the bladder. She underwent flexible cystoscopy. The patient has mild urethritis noted. The bladder itself has erythematous areas throughout. On filling she complains of discomfort. Her bladder capacity is reduced to about 5 ounces. This contributes to her urinary frequency. I see no bladder stone tumor hemorrhage or infection. The ureteral orifices are normal bilaterally. I will set her up for urine cytology and midstream clean-catch urine culture and sensitivity just in case the Macrobid does not cover. She will continue these 3 medications until I see her in follow-up in a few weeks.
== END 2023-12-21 09:31 | disposition home or self-care (01) ==
PROVIDERS: PCP Internal Medicine; Visit Provider Urology
PROC: 0TJB8ZZ Inspection of Bladder, Via Natural or Artificial Opening Endoscopic (ICD-10-PCS; CPT 52000; principal; 2023-12-21 09:15)
DX: N39.0 Urinary tract infection, site not specified (principal); N39.3 Stress incontinence (female) (male); E11.8 Type 2 diabetes mellitus with unspecified complications; Z79.84 Long term (current) use of oral hypoglycemic drugs
CPT/HCPCS: 52000; 82962; 88112; J7120

== ENCOUNTER 2023-12-26 09:29 | Outpatient (CLI) | payer MEDICARE, SELFPAY ==
[2023-12-26 18:58] LABS: Basophils # 0.1 K/mm3 (0-0.2); Basophils % 0.9 % (0.1-2.0); Eosinophils # 0.1 K/mm3 (0.0-0.4); Eosinophils % 1.1 % (0.1-12.0); Hematocrit 38.2 % (37.0-47.0); Lymphocytes # 2.7 K/mm3 (0.7-4.5); Lymphocytes % 35.7 % (10-50); Mean Corpuscular HGB Conc 31.5 g/dL (31.8-35.4); Mean Corpuscular Hemoglobin 31.5 pg (27.0-31.2); Mean Corpuscular Volume 100.1 fl (81-99); Mean Platelet Volume 8.4 fl (7.4-10.4); Monocytes # 0.4 K/mm3 (0.1-1.0); Monocytes % 5.3 % (1.7-9.3); Neutrophils # 4.3 K/mm3 (1.8-7.8); Platelet Count 282 K/mm3 (142-424); Red Blood Count 3.82 M/mm3 (4.20-5.40); Red Cell Distribution Width 14.1 % (11.5-17.5); White Blood Count 7.6 K/mm3 (4.8-10.8)
[2023-12-26 19:37] LABS: Creatinine,Urine Random 31 mg/dL (Not Estab.); Microalbumin < 6.000 mg/L (0-16.7)
== END 2023-12-26 23:59 | disposition home or self-care (01) ==
LOC: LAB.DROPOF 12-27 09:30
PROVIDERS: PCP Internal Medicine; Visit Provider Internal Medicine
DX: R10.9 Unspecified abdominal pain (principal); R73.03 Prediabetes; Z79.899 Other long term (current) drug therapy
CPT/HCPCS: 82043; 82570; 85025

== ENCOUNTER 2024-02-18 13:36 | Outpatient (CLI) | payer MEDICARE, SELFPAY ==
[2024-02-18 14:42] LABS: Chloride 102 mmol/L (98-107); Potassium 4.3 mmoL/L (3.5-5.1); Sodium 138 mmol/L (136-145)
[2024-02-18 14:46] LABS: Anion Gap 11.3 mEq/L (5-15); Carbon Dioxide 29 mmol/L (22.0-30.0)
== END 2024-02-18 23:59 | disposition home or self-care (01) ==
LOC: LAB 13:37
PROVIDERS: PCP Internal Medicine; Visit Provider Urology
DX: R35.1 Nocturia (principal)
CPT/HCPCS: 36415; 80051

== ENCOUNTER 2024-03-20 14:17 | Outpatient (CLI) | payer MEDICARE, SELFPAY ==
[2024-03-20 14:47] LABS: Basophils # 0.1 K/mm3 (0-0.2); Basophils % 1.3 % (0.1-2.0); Eosinophils # 0.1 K/mm3 (0.0-0.4); Eosinophils % 1.1 % (0.1-12.0); Hematocrit 34.1 % (37.0-47.0); Hemoglobin 11.8 g/dL (12.2-16.2); Lymphocytes # 2.1 K/mm3 (0.7-4.5); Lymphocytes % 30.1 % (10-50); Mean Corpuscular HGB Conc 34.4 g/dL (31.8-35.4); Mean Corpuscular Hemoglobin 32.3 pg (27.0-31.2); Mean Corpuscular Volume 93.8 fl (81-99); Mean Platelet Volume 7.8 fl (7.4-10.4); Monocytes # 0.5 K/mm3 (0.1-1.0); Monocytes % 6.7 % (1.7-9.3); Neutrophils # 4.3 K/mm3 (1.8-7.8); Neutrophils % 60.9 % (37.0-80.0); Platelet Count 254 K/mm3 (142-424); Red Blood Count 3.64 M/mm3 (4.20-5.40); Red Cell Distribution Width 13.7 % (11.5-17.5)
[2024-03-20 15:11] LABS: Alanine Aminotransferase 24 U/L (12-78); Albumin Level 4.7 g/dl (3.5-5.0); Albumin/Globulin Ratio 1.4 (1.1-1.8); Alkaline Phosphatase 58 U/L (38-126); Aspartate Amino Transferase 39 U/L (14-36); Bilirubin,Total 0.6 mg/dl (0.2-1.3); Blood Urea Nitrogen 17 mg/dl (7-17); Calcium 9.8 mg/dl (8.4-10.2); Carbon Dioxide 28 mmol/L (22.0-30.0); Chloride 104 mmol/L (98-107); Estimated Glomerular Filt Rate 82 ml/min (>60); GFR (African American) 99 ML/MIN (>60); Globulin 3.3 g/dL (1.3-3.2); Glucose 84 mg/dl (74-100); Sodium 141 mmol/L (136-145)
[2024-03-20 15:15] LABS: Erythrocyte Sedimentation Rate 56 mm/hr (0-30)
[2024-03-20 15:16] LABS: C-Reactive Protein 1.2 mg/L (0-4)
[2024-03-20 16:57] LABS: Hemoglobin A1C 5.8 % (4.0-6.0)
== END 2024-03-20 23:59 | disposition home or self-care (01) ==
LOC: LAB 14:18
PROVIDERS: PCP Internal Medicine; Visit Provider Internal Medicine
DX: R10.9 Unspecified abdominal pain (principal); E78.2 Mixed hyperlipidemia; R60.0 Localized edema; E11.9 Type 2 diabetes mellitus without complications
CPT/HCPCS: 36415; 80053; 83036; 85025; 85651; 86140

== ENCOUNTER 2024-04-09 14:19 | Emergency (ER) | payer MEDICARE, SELFPAY ==
[2024-04-09 14:20] VITALS: BP 132/79; PULSE 92; RESP 16; TEMP 36.7; O2SAT 97; BMI 26.3
--- NOTE | 2024-04-09 14:42 | CT_ITS ---
PROCEDURE INFORMATION: Exam: CT Abdomen And Pelvis With Contrast Exam date and time: 04/09/2024 4:12 PM Age: 73 years old Clinical indication: Abdominal pain; Additional info: Left lower quadrant and left flank pain TECHNIQUE: Imaging protocol: Computed tomography of the abdomen and pelvis with contrast. Radiation optimization: All CT scans at this facility use at least one of these dose optimization techniques: automated exposure control; mA and/or kV adjustment per patient size (includes targeted exams where dose is matched to clinical indication); or iterative reconstruction. Contrast material: ISOVUE; Contrast volume: 75 ml; Contrast route: IV; COMPARISON: 1. CT ABDOMEN PELVIS W CON 10/05/2023 4:[address] ABDOMEN PELVIS W CON 04/24/2023 3:[address] ABDOMEN PELVIS W CON 08/15/2020 3:41 AM FINDINGS: Lungs: Lung bases are clear. Liver: Interval development of scattered small enhancing lesions throughout the liver largest measuring 9.7 mm in the anterior dome of the liver on image 20 of series 3. These lesions are not visible on prior CTs dating back to 08/15/2020. Gallbladder and biliary ducts: Status post cholecystectomy. No evident bile duct dilatation allowing for prior cholecystectomy. Pancreas: Pancreatic calcifications compatible with chronic pancreatitis redemonstrated. A 12 mm cystic lesion projects off of the superior body of the pancreas on axial image 28 of series 3 and is stable compared to the most recent CT of 10/05/2023 and previously measured up to [address] of 08/15/2020. Spleen: Normal. No splenomegaly. Adrenal glands: Stable small left adrenal nodule compatible with adenoma. Kidneys and ureters: Stable subcentimeter low-density lesions in the posterior mid to upper and the anterior mid to lower left kidney too small to characterize but likely cysts. No follow-up advised. Kidneys and ureters otherwise unremarkable with no obstructing stones or uropathy. Stomach and bowel: Occasional diverticulum in the sigmoid colon. GI tract structures otherwise unremarkable with no evident wall thickening allowing for incomplete distention. Appendix: No evidence of appendicitis. Intraperitoneal space: Unremarkable. No free air. No significant fluid collection. Vasculature: 14 mm splenic artery aneurysm in the splenic hilum redemonstrated. Atherosclerotic changes of the aorta and iliacs noted. No evidence of aneurysm. Lymph nodes: Unremarkable. No enlarged lymph nodes. Urinary bladder: Unremarkable as visualized. Reproductive: Hysterectomy. Bones/joints: Unremarkable. No acute fracture. Soft tissues: Unremarkable. IMPRESSION: 1. No acute abnormalities of the abdomen and pelvis. 2. Interval development of scattered subcentimeter enhancing lesions throughout the liver. Benign versus malignant etiologies cannot be differentiated. Findings might reflect some type of multifocal transient vascular phenomenon but developing enhancing liver lesions potentially related to metastatic disease of unknown primary cannot be totally excluded. Advise further assessment with nonemergent MRI of the liver with and without contrast. 3. A 12 mm cystic lesion projects off of the superior body of the pancreas redemonstrated. Reimaging every 2 years for 10 years is recommended. (Reference: Susan, 2017) 4. Additional nonemergent findings as abTove. REFERENCES: Susan FORMAN, et al. Management of Incidental Pancreatic Cysts: A White Paper of the ACR Incidental Findings Committee. J Am Igor Radiol. 2017;14(7):911-923.
--- NOTE | 2024-04-09 14:44 | [facility].EDGENADL ---
Discharge Plan Disposition Patient Disposition: Home, Self-Care Prescriptions Prescriptions: New nitrofurantoin monohyd/m-cryst [Macrobid] 100 mg capsule 100 mg PO BID 5 Days Qty: 10 0RF Rx Instructions: must administer with a meal/food No Action phenazopyridine [Pyridium] 200 mg tablet 200 mg PO ONCE 30 Days Qty: 30 2RF Rx Instructions: Take one twice day as needed for burning urine. oxycodone 10 mg tablet 10 mg PO TID PRN (Reason: pain) Qty: 90 0RF estradiol 0.01 % (0.1 mg/gram) cream See Rx Instructions vaginal .COMPLEX Qty: 42.5 2RF Rx Instructions: Using finger technique daily for two weeks and then twice weekly vaginally; nitrofurantoin macrocrystal [Macrodantin] 100 mg capsule 100 mg PO HS Qty: 30 0RF Rx Instructions: must administer with a meal/food oxybutynin chloride 10 mg tablet extended release 24hr 10 mg PO DAILY Qty: 90 3RF metformin 500 mg tablet 500 mg PO BID Qty: 60 3RF omega-3 acid ethyl esters 1 gram capsule 1 cap PO DAILY Qty: 30 2RF alprazolam [Xanax] 0.5 mg tablet 0.5 mg PO TID Qty: 90 2RF Creon 36,000-114,000- 180,000 unit capsule,delayed release(DR/EC) 1 cap PO ONCE clopidogrel 75 mg tablet 75 mg PO DAILY Qty: 90 0RF levothyroxine [Synthroid] 50 mcg tablet 50 mcg PO DAILY Qty: 90 0RF oxycodone 5 mg tablet 5 mg PO QID PRN (Reason: pain) Qty: 120 0RF furosemide 20 mg tablet See Rx Instructions .ROUTE .COMPLEX Qty: 90 3RF Dose Instruction: TAKE 1 TABLET BY MOUTH DAILY Rx Instructions: TAKE 1 TABLET BY MOUTH DAILY Linzess 290 mcg capsule 290 mcg PO DAILY Patient Comments: TAKE 1 CAPSULE BY MOUTH EVERY DAY 30 MINUTES BEFORE FIRST MEAL OF THE DAY ON AN EMPTY STOMACH Referrals Follow up/Referrals: Mohsen Carrero DO [Primary Care Provider] - See instructions Activity Restrictions/Add. Instructions Additional Instructions/Restrictions: Call your family doctor to establish care for this visit to the emergency department and schedule follow-up within 48 hours to ensure improvement. If you have any worsening of your condition or any other concerning signs or symptoms, return to the emergency department or your primary care doctor for further evaluation. Talk to your family doctor about including MRI of your liver in order to further characterize multiple lesions. Macrobid twice daily for 5 days. Clinical Impressions Clinical Impression: Dysuria, Urinary frequency, Left flank pain, Left lower quadrant abdominal pain Print Language Print Language: Citizen Of [place] Discharge ED Provider: Naldo Ortiz General Adult HPI <Lito Nagel MD - Last Filed: 04/09/24 15:00> General Chief complaint: PAIN Stated complaint: lower back pain and left side pain Time Seen by Provider: 04/09/24 14:23 Mode of Arrival: Wheelchair Source of Information: Patient Limitations: No Limitations Description of Symptoms (Recalled from ER Triage Doc. by RN): Patient reports left sided back and abdomen pain for 3-4 months. Also complains of pain and burning with urination. History of Present Illness HPI narrative: Patient is a 73-year-old with a history of chronic and recurrent urinary tract infection she is followed by Dr. Simpson she has been on and off nitrofurantoin also had a cystoscopy that was negative for malignancy. She has had several CAT scans in the past without any identifiable abnormalities. She states for the last 3 to 4 months she has had increasing urinary frequency and urgency and also has increasing left lower quadrant and left-sided flank pain which is what brings her to the emergency department today. Denies any fevers or chills states that Dr. Simpson did a pelvic exam which was unremarkable. Denies any bowel symptoms Related Data Home Medications ?Medication ?Instructions ?Recorded ?Confirmed linaclotide 290 mcg capsule 290 mcg PO DAILY 10/01/23 03/20/24 (Linzess) [id number] 1 cap PO ONCE 03/03/24 03/20/24 36,000-114,000-180,000 unit capsule,delay rel (Creon) Previous Rx's ?Medication ?Instructions ?Recorded metformin 500 mg tablet 500 mg PO BID #60 tabs 11/29/23 omega-3 acid ethyl esters 1 gram 1 cap PO DAILY #30 caps 12/26/23 capsule alprazolam 0.5 mg tablet (Xanax) 0.5 mg PO TID #90 tabs 01/21/24 Synthroid 50 mcg tablet 50 mcg PO DAILY thyroid disease 10/09/24 (levothyroxine) #90 tabs clopidogrel 75 mg tablet 75 mg PO DAILY Blood thinner #90 02/13/24 tabs phenazopyridine 200 mg tablet 200 mg PO ONCE 30 days #30 tabs 02/18/24 (Pyridium) oxycodone 5 mg tablet 5 mg PO QID PRN pain #120 tabs 02/25/24 estradiol 0.01% (0.1 mg/gram) See Rx Instructions vaginal 03/03/24 vaginal cream .COMPLEX #42.5 grams nitrofurantoin macrocrystal 100 mg 100 mg PO HS #30 caps 03/03/24 capsule (Macrodantin) oxybutynin chloride 10 mg 10 mg PO DAILY #90 tabs 03/03/24 tablet,extended release 24 hr oxycodone 10 mg tablet 10 mg PO TID PRN pain #90 tabs 03/20/24 furosemide 20 mg tablet See Rx Instructions .Route 03/31/24 .COMPLEX #90 tabs nitrofurantoin 100 mg PO BID 5 days #10 caps 04/09/24 monohydrate/macrocrystals 100 mg capsule (Macrobid) Allergies Allergy/AdvReac Type Severity Reaction Status Date / Time cefaclor (From Ceclor) Allergy Mild Verified 03/20/24 13:14 codeine Allergy Mild Verified 03/20/24 13:14 Sulfa (Sulfonamide Allergy Mild Verified 03/20/24 13:14 Antibiotics) [facility] <Lito Nagel MD - Last Filed: 04/09/24 15:00> [facility] Disclaimer: The information contained in this section may have been updated after the patient was seen, as this information can be updated by other users. Medical History Encounter for pre-operative cardiovascular clearance Abnormal electrocardiogram [ECG] [EKG] Hyperlipidemia Hypothyroidism Diabetes We have not done an HbA1c nor microalbumin and this patient. Again something that should have been done at previous visits. Will check this at her next visit. CAD (coronary artery disease) Anxiety Anuja Weston is following this patient and is writing for the alprazolam. Will leave this up to her at this point. COPD (chronic obstructive pulmonary disease) Panic disorder Surgical History Hx of appendectomy History of hysterectomy History of cholecystectomy History of thyroidectomy Family History Other No significant family history Social History Smoking Status: Never smoker alcohol intake: never current occupational status: retired Travel in the last 8 weeks: None Other Medical History Have you received the Flu Vaccine for this season: Yes Have you received the Pneumonia Vaccine: Yes <Lito Nagel MD - Last Filed: 04/09/24 15:00> ROS Obtained: Yes All systems reviewed & no additional complaints except as documented Physical Exam <Lito Nagel MD - Last Filed: 04/09/24 15:00> General General appearance: alert and in no apparent distress Respiratory Respiratory exam: Present normal lung sounds bilaterally Cardiovascular Cardiovascular exam: Present regular rate Abdominal Exam Abdominal exam: Present other (Suprapubic and left lower quadrant tenderness palpation also left flank tenderness no CVA tenderness bilaterally) Neurological Exam Neurological exam: Present alert Medical Decision Making <Lito Nagel MD - Last Filed: 04/09/24 15:00> Medical Records Screening: Per USPSTF and CDC recommendations, given the prevalence of disease in our region, it is our hospital?s policy to screen for HIV and viral Hepatitis for all patients aged 18 and over and those with ongoing risk factors. Marvin Inquiry Pt receiving controlled substance: No Vital Signs: 04/09/24 14:20 04/09/24 15:01 04/09/24 16:00 Temperature 98.1 F Temperature Source Oral Pulse Rate 67 63 Pulse Rate [Radial] 92 H Respiratory Rate 16 Blood Pressure 108/58 L 107/60 L Blood Pressure [Right Arm] 132/79 Blood Pressure Mean [Right Arm] 96 Blood Pressure Source [Right Arm] Automatic Cuff Blood Pressure Position [Right Arm] Sitting 02 Sat by Pulse Oximetry 97 93 L 94 L Oxygen Delivery Method Room Air Lab Data Lab Results 04/09/24 14:27: Urine Color Yellow, Urine Appearance Clear, Urine pH 6.0, Ur Specific [place] 1.010, Urine Protein Negative, Urine Glucose (UA) Negative, Urine Ketones Negative, Urine Blood Trace-i, Urine Nitrate Positive A, Urine Bilirubin Negative, Urine Urobilinogen 0.2, Ur Leukocyte Esterase 3+ A, Urine RBC Tntc, Urine WBC Tntc, Ur Squamous Epith Cells 20-50, Urine Bacteria 4+ 04/09/24 14:50: WBC 4.6 L, RBC 3.72 L, Hgb 12.0 L, Hct 34.9 L, MCV 94.0, MCH 32.4 H, MCHC 34.5, RDW 13.8, Plt Count 253, MPV 7.7, Neut % (Auto) 51.2, Lymph % (Auto) 41.0, Coleman % (Auto) 5.5, Eos % (Auto) 1.5, Baso % (Auto) 0.8, Neut # (Auto) 2.4, Lymph # (Auto) 1.9, Coleman # (Auto) 0.3, Eos # (Auto) 0.1, Baso # (Auto) 0.0, Sodium 138, Potassium 3.8, Chloride 105, Carbon Dioxide 27, Anion Gap 9.8, BUN 12, Creatinine 0.80, Estimated Creat Clear 58, Estimated GFR 70, Est GFR ( Amer) 85, Glucose 98, Calcium 9.5, Total Bilirubin 0.7, AST 46 H, ALT 22, Alkaline Phosphatase 53, Total Protein 7.8, Albumin 4.4, Globulin 3.4 H, Albumin/Globulin Ratio 1.3, HIV 1&2 Antibody Rapid Nonreactive 04/09/24 14:50 04/09/24 14:50 Orders (Tests/Meds): ED MEDICATIONS Discontinued Medications Generic Name Dose Route Start Last Admin Trade Name Freq PRN Reason Stop Dose Admin Acetaminophen 1,000 mg 04/09/24 14:42 04/09/24 14:54 Acetaminophen 1,000mg/100ml Vial IV 04/09/24 14:43 1,000 mg ONCE ONE Administration Lactated Ringer's 1,000 mls @ 999 mls/hr 04/09/24 14:45 04/09/24 14:54 Lactated Ringer's 1000 Ml Bag IV 04/09/24 15:45 999 mls/hr .Q1H1M FANTA Administration Iopamidol 75 ml 04/09/24 16:14 04/09/24 16:14 Iopamidol-370 (76%);100ml Bottle IV 04/09/24 16:15 75 ml ONCE ONE Administration Ketorolac Tromethamine 15 mg 04/09/24 16:39 04/09/24 16:56 Ketorolac 30mg/Ml Vial IV 04/09/24 16:40 15 mg ONCE ONE Administration Nitrofurantoin Macrocrystals 100 mg 04/09/24 15:35 04/09/24 16:26 Nitrofurantoin 100mg Capsule PO 04/09/24 15:36 100 mg ONCE ONE Administration Ondansetron HCl 4 mg 04/09/24 14:42 04/09/24 14:54 Ondansetron 4mg/2ml Vial IV 04/09/24 14:43 4 mg ONCE ONE Administration Sodium Chloride 10 ml 04/09/24 16:14 04/09/24 16:14 Sodium Chloride 0.9% 10ml Syr (Rad Only) IV 04/09/24 16:15 10 ml ONCE ONE Administration ORDERS Category Date Time Status CT abdomen pelvis w con Stat Cat Scan 04/09/24 14:42 Completed CBC w/Auto Diff [Complete Blood Count Auto Diff] Stat Lab 04/09/24 14:50 Completed CMP [Comprehensive Metabolic Panel] Stat Lab 04/09/24 14:50 Completed HIV (1&2) Antibody Rapid Stat Lab 04/09/24 14:50 Completed Hep C Ab with Reflex to RNA Stat Lab 04/09/24 14:50 Received UA [Urinalysis and Microscopic] Stat Lab 04/09/24 14:27 Completed Urine Culture Stat Micro 04/09/24 14:27 Received Medical Decision Narrative: 73-year-old with above history and physical with her chronic and recurrent urinary tract infections possibly with another 1 today will obtain urinalysis. However she has significant tenderness in the suprapubic left lower quadrant and left lower back/flank region. Differential also includes stones, diverticulitis colitis, malignancy, etc. After reviewing Dr. Simpson's notes it seems that this patient has been very worried chronically about bladder cancer as her brother had bladder cancer but she has had no evidence of that in the past. Workup is pending as of 3 PM and will be transitioned to Dr. Naldo Ortiz for further evaluation and management. <Naldo Ortiz MD - Last Filed: 04/09/24 17:51> Vital Signs: 04/09/24 14:20 04/09/24 15:01 04/09/24 16:00 Temperature 98.1 F Temperature Source Oral Pulse Rate 67 63 Pulse Rate [Radial] 92 H Respiratory Rate 16 Blood Pressure 108/58 L 107/60 L Blood Pressure [Right Arm] 132/79 Blood Pressure Mean [Right Arm] 96 Blood Pressure Source [Right Arm] Automatic Cuff Blood Pressure Position [Right Arm] Sitting 02 Sat by Pulse Oximetry 97 93 L 94 L Oxygen Delivery Method Room Air Lab Data Lab Results 04/09/24 14:27: Urine Color Yellow, Urine Appearance Clear, Urine pH 6.0, Ur Specific [place] 1.010, Urine Protein Negative, Urine Glucose (UA) Negative, Urine Ketones Negative, Urine Blood Trace-i, Urine Nitrate Positive A, Urine Bilirubin Negative, Urine Urobilinogen 0.2, Ur Leukocyte Esterase 3+ A, Urine RBC Tntc, Urine WBC Tntc, Ur Squamous Epith Cells 20-50, Urine Bacteria 4+ 04/09/24 14:50: WBC 4.6 L, RBC 3.72 L, Hgb 12.0 L, Hct 34.9 L, MCV 94.0, MCH 32.4 H, MCHC 34.5, RDW 13.8, Plt Count 253, MPV 7.7, Neut % (Auto) 51.2, Lymph % (Auto) 41.0, Coleman % (Auto) 5.5, Eos % (Auto) 1.5, Baso % (Auto) 0.8, Neut # (Auto) 2.4, Lymph # (Auto) 1.9, Coleman # (Auto) 0.3, Eos # (Auto) 0.1, Baso # (Auto) 0.0, Sodium 138, Potassium 3.8, Chloride 105, Carbon Dioxide 27, Anion Gap 9.8, BUN 12, Creatinine 0.80, Estimated Creat Clear 58, Estimated GFR 70, Est GFR ( Amer) 85, Glucose 98, Calcium 9.5, Total Bilirubin 0.7, AST 46 H, ALT 22, Alkaline Phosphatase 53, Total Protein 7.8, Albumin 4.4, Globulin 3.4 H, Albumin/Globulin Ratio 1.3, HIV 1&2 Antibody Rapid Nonreactive Orders (Tests/Meds): ED MEDICATIONS Discontinued Medications Generic Name Dose Route Start Last Admin Trade Name Freq PRN Reason Stop Dose Admin Acetaminophen 1,000 mg 04/09/24 14:42 04/09/24 14:54 Acetaminophen 1,000mg/100ml Vial IV 04/09/24 14:43 1,000 mg ONCE ONE Administration Lactated Ringer's 1,000 mls @ 999 mls/hr 04/09/24 14:45 04/09/24 14:54 Lactated Ringer's 1000 Ml Bag IV 04/09/24 15:45 999 mls/hr .Q1H1M FANTA Administration Iopamidol 75 ml 04/09/24 16:14 04/09/24 16:14 Iopamidol-370 (76%);100ml Bottle IV 04/09/24 16:15 75 ml ONCE ONE Administration Ketorolac Tromethamine 15 mg 04/09/24 16:39 04/09/24 16:56 Ketorolac 30mg/Ml Vial IV 04/09/24 16:40 15 mg ONCE ONE Administration Nitrofurantoin Macrocrystals 100 mg 04/09/24 15:35 04/09/24 16:26 Nitrofurantoin 100mg Capsule PO 04/09/24 15:36 100 mg ONCE ONE Administration Ondansetron HCl 4 mg 04/09/24 14:42 04/09/24 14:54 Ondansetron 4mg/2ml Vial IV 04/09/24 14:43 4 mg ONCE ONE Administration Sodium Chloride 10 ml 04/09/24 16:14 04/09/24 16:14 Sodium Chloride 0.9% 10ml Syr (Rad Only) IV 04/09/24 16:15 10 ml ONCE ONE Administration ORDERS Category Date Time Status CT abdomen pelvis w con Stat Cat Scan 04/09/24 14:42 Completed CBC w/Auto Diff [Complete Blood Count Auto Diff] Stat Lab 04/09/24 14:50 Completed CMP [Comprehensive Metabolic Panel] Stat Lab 04/09/24 14:50 Completed HIV (1&2) Antibody Rapid Stat Lab 04/09/24 14:50 Completed Hep C Ab with Reflex to RNA Stat Lab 04/09/24 14:50 Received UA [Urinalysis and Microscopic] Stat Lab 04/09/24 14:27 Completed Urine Culture Stat Micro 04/09/24 14:27 Received Medical Decision Narrative: 73-year-old with above history and physical with her chronic and recurrent urinary tract infections possibly with another 1 today will obtain urinalysis. However she has significant tenderness in the suprapubic left lower quadrant and left lower back/flank region. Differential also includes stones, diverticulitis colitis, malignancy, etc. After reviewing Dr. Simpson's notes it seems that this patient has been very worried chronically about bladder cancer as her brother had bladder cancer but she has had no evidence of that in the past. Workup is pending as of 3 PM and will be transitioned to Dr. Naldo Ortiz for further evaluation and management. Angel: I assumed primary responsibility for this patient after signout from previous physician. This is a 73-year-old female with history of chronic pelvic pain following with urology presenting with lower abdominal/pelvic pain and urinary frequency/urgency/dysuria. States that this been going on for few days, worse than previous. No blood that she has noticed in her urine. No fevers or chills, nausea vomiting, radiation of the pain. No bowel or bladder dysfunction. Came in for further evaluation. Initial evaluation performed by previous physician. On my evaluation, she is in no acute distress, but appears very fixated on fact that she hurts in her lower pelvic area. On my exam, patient is definitely tender, but no evidence of peritonitis. No flank tenderness or overlying skin changes. Placed on continuous athletic monitor and pulse oximetry for abdominal pain in the elderly necessitating CT scanning. Initial blood pressure 107/60, pulse rate 63, 94% on room air. On independent interpretation of workup, nonactionable CBC or chemistry with normal kidney function and normal LFTs. Patient's urinalysis with blood, nitrates, leukocyte esterase, bacteria and too numerous to count white blood cells. This is consistent with cystitis. CT scan of the abdomen and pelvis was independently interpreted and no acute intra-abdominal abnormality other than bladder wall thickening. No evidence of diverticulitis or other bowel related issue. Patient given initial dose of Macrobid here. Radiology read resulted with concern for new enhancing lesions in the liver. This was relayed to patient and recommendations for follow-up or given. Patient also states she already has an MRI scheduled for a few days from now of her stomach and pelvis, recommended she talk to her family doctor to see if she can include entire abdomen including liver and that. She voiced her understanding. Because patient at baseline without signs or symptoms of clinical decompensation, deemed appropriate for discharge. Results were relayed to patient who voiced understanding and were agreeable to outpatient management and follow up. I discussed my clinical impression with patient and answered all questions. At this time, the evidence for any other entities in the differential is insufficient to warrant any further testing or ED observation. This was explained as well. Advisory was given that persistent or worsening symptoms require further evaluation. I confirmed the understanding of this discussion. Critical Care <Lito Nagel MD - Last Filed: 04/09/24 15:00> Critical Care Time Critical Care Time: No
[2024-04-09] MEDS: ACETAMINOPHEN 1,000MG/100ML VIAL 1000 MG IV (14:54)
[2024-04-09] MEDS: LACTATED RINGERS 1000ML 1,000 ML 999 ML IV (14:54)
[2024-04-09] MEDS: ONDANSETRON 4MG/2ML VIAL 4 MG IV (14:54)
[2024-04-09 14:59] LABS: Basophils % 0.8 % (0.1-2.0); Eosinophils # 0.1 K/mm3 (0.0-0.4); Eosinophils % 1.5 % (0.1-12.0); Hematocrit 34.9 % (37.0-47.0); Lymphocytes # 1.9 K/mm3 (0.7-4.5); Mean Corpuscular HGB Conc 34.5 g/dL (31.8-35.4); Mean Corpuscular Hemoglobin 32.4 pg (27.0-31.2); Mean Platelet Volume 7.7 fl (7.4-10.4); Monocytes # 0.3 K/mm3 (0.1-1.0); Monocytes % 5.5 % (1.7-9.3); Neutrophils # 2.4 K/mm3 (1.8-7.8); Neutrophils % 51.2 % (37.0-80.0); Platelet Count 253 K/mm3 (142-424); Red Blood Count 3.72 M/mm3 (4.20-5.40); Red Cell Distribution Width 13.8 % (11.5-17.5); White Blood Count 4.6 K/mm3 (4.8-10.8)
[2024-04-09 15:01] VITALS: BP 108/58; PULSE 67; O2SAT 93
[2024-04-09 15:01] LABS: Microscopic, Urine URINE MICROSCOPIC (MICROSCOPIC)
[2024-04-09 15:10] LABS: Albumin Level 4.4 g/dl (3.5-5.0); Chloride 105 mmol/L (98-107); Potassium 3.8 mmoL/L (3.5-5.1); Sodium 138 mmol/L (136-145)
[2024-04-09 15:10] LABS: Appearance,Urine CLEAR (Clear); Bilirubin,Urine Negative (Negative); Blood, Urine TRACE-I (Negative); Color,Urine YELLOW (Yellow); Glucose,Urine (UA) Negative (Negative); Ketones,Urine Negative (Negative); Leukocyte Esterase,Urine 3+ (Negative); Nitrate,Urine POSITIVE (Negative); Protein,Urine Negative (Negative); Urobilinogen,Urine 0.2 EU/dl (0.2)
[2024-04-09 15:12] LABS: Blood Urea Nitrogen 12 mg/dl (7-17); Creatinine Clearance Estimated 58 mL/min (50-200); Estimated Glomerular Filt Rate 70 ml/min (>60); GFR (African American) 85 ML/MIN (>60)
[2024-04-09 15:13] LABS: Alanine Aminotransferase 22 U/L (12-78); Albumin/Globulin Ratio 1.3 (1.1-1.8); Alkaline Phosphatase 53 U/L (38-126); Anion Gap 9.8 mEq/L (5-15); Aspartate Amino Transferase 46 U/L (14-36); Bilirubin,Total 0.7 mg/dl (0.2-1.3); Calcium 9.5 mg/dl (8.4-10.2); Carbon Dioxide 27 mmol/L (22.0-30.0); Globulin 3.4 g/dL (1.3-3.2); Glucose 98 mg/dl (74-100); Total Protein,Serum 7.8 g/dl (6.3-8.2)
[2024-04-09 15:51] LABS: Bacteria,Urine 4+ /lpf; RBC,Urine TNTC #/hpf (0-3); Squamous Epithelial Cell,Urine 20-50 #/hpf (0-5); WBC,Urine TNTC #/hpf (0-3)
[2024-04-09 16:00] VITALS: BP 107/60; PULSE 63; O2SAT 94
[2024-04-09] MEDS: IOPAMIDOL-370 (76%);100ML BOTTLE 75 ML IV (16:14)
[2024-04-09] MEDS: SODIUM CHLORIDE 0.9% 10ML SYR (RAD ONLY) 10 ML IV (16:14)
[2024-04-09] MEDS: NITROFURANTOIN 100MG CAPSULE 100 MG PO (16:26)
[2024-04-09] MEDS: KETOROLAC 30MG/ML VIAL 15 MG IV (16:56)
[2024-04-09 17:42] LABS: HIV (1&2) Antibody Rapid NONREACTIVE (NONREACTIVE)
--- NOTE | 2024-04-09 17:44 | PC.NURSE ---
DR PEREYRA AT BEDSIDE TO UPDATE PT
[2024-04-09 18:18] VITALS: BP 100/47; PULSE 56; RESP 18; TEMP 36.7; O2SAT 97
[2024-04-10 06:15] LABS: HCV Ab Non Reactive (Non Reactive)
--- NOTE | 2024-04-11 15:24 | PC.NURSE ---
urine culture discussed with , pt dc with clarence, verified with pharmacy about prescription, per pharmacist pt was called in [facility] from her family doctor last night. ntd
== END 2024-04-09 18:23 | disposition home or self-care (01) ==
PROVIDERS: Student in an Organized Health Care Education/Training Program; Emergency Provider Emergency Medicine; PCP Internal Medicine
DX: R30.0 Dysuria (principal); R10.32 Left lower quadrant pain; R35.0 Frequency of micturition; M54.50 Low back pain, unspecified; R30.9 Painful micturition, unspecified; R39.15 Urgency of urination
CPT/HCPCS: 74177; 80053; 81001; 85025; 86803; 87086; 87088; 87186; 87389; 96361; 96374; 96375; 99285; J0131; J1885; J2405; J7120; Q9967

== ENCOUNTER 2024-04-15 16:10 | Outpatient (CLI) | payer MEDICARE, SELFPAY | END 2024-04-15 23:59 | disposition home or self-care (01) | LOC: LAB.DROPOF 04-16 09:40 | PROVIDERS: PCP Obstetrics & Gynecology; Visit Provider Obstetrics & Gynecology | DX: N39.0 Urinary tract infection, site not specified (principal) | CPT/HCPCS: 87086 ==

== ENCOUNTER 2024-04-16 07:37 | Outpatient (CLI) | payer MEDICARE, SELFPAY ==
--- NOTE | 2024-04-16 07:47 | MR_ITS ---
FINAL REPORT TECHNIQUE: Multiplanar MR imaging of the pelvis was obtained with and without contrast. CLINICAL HISTORY: abdominal pain, weight loss FINDINGS: There is a 10 mm focus of abnormal signal in the right iliac bone not seen on recent CT, uncertain etiology. Mass is not excluded. Patient is status post hysterectomy. There are diverticula in the sigmoid colon. Urinary bladder is unremarkable. There is no adenopathy or free fluid. IMPRESSION: 10 mm focus of abnormal signal in the right iliac bone not seen on recent CT. Otherwise, unremarkable exam of the pelvis. Reviewed, Interpreted and Dictated by Rico Pablo III, MD Transcribed by Alyson Hernandez Authenticated and . [facility]
--- NOTE | 2024-04-16 07:47 | MR_ITS ---
FINAL REPORT CLINICAL HISTORY: abdominal pain and weight loss >20lbs COMPARISON: 04/09/2024 FINDINGS: Multiplanar MR imaging of the abdomen was performed without and with contrast. There is motion artifact on many sequences. Patient is status postcholecystectomy. There is mild biliary ductal dilatation, favor postcholecystectomy change. There is a 7 mm cyst in the posterior right hepatic lobe. No other hepatic mass or abnormal contrast-enhancement is seen. There are 2 adjacent cystic masses superior to the pancreatic neck measuring 10 and 11 mm which are stable from prior exam. This is best seen on coronal reformatted images. There is a third, 6 mm cystic area near the pancreatic head. There is a less than 5 mm left renal cyst. Remaining solid abdominal organs are without acute abnormality. IMPRESSION: 3 small cystic masses adjacent to the pancreas which are nonspecific which may represent pseudocyst or other cystic mass. Small cyst in the posterior right hepatic lobe. Recommend follow-up CT or MRI in 6 months time. Reviewed, Interpreted and Dictated by Rico Pablo III, MD Transcribed by Alyson Hernandez Authenticated and [facility]
[2024-04-16] MEDS: SODIUM CHLORIDE 0.9% 50ML BAG 25 ML IV (09:28)
[2024-04-16] MEDS: GADOTERIDOL INJ 20ML SYRINGE 15 ML IV (09:28)
[2024-04-16] MEDS: SODIUM CHLORIDE 0.9% 10ML SYR (RAD ONLY) 10 ML IV (09:28)
== END 2024-04-16 23:59 | disposition home or self-care (01) ==
PROVIDERS: PCP Internal Medicine; Visit Provider Internal Medicine
DX: R63.4 Abnormal weight loss (principal); R10.9 Unspecified abdominal pain
CPT/HCPCS: 72197; 74183; A9576

== ENCOUNTER 2024-06-05 14:30 | Outpatient (CLI) | payer MEDICARE, SELFPAY ==
[2024-06-05 19:36] LABS: Thyroid Stimulating Hormone 1.37 uIU/mL (0.465-4.68)
== END 2024-06-05 23:59 | disposition home or self-care (01) ==
LOC: LAB.DROPOF 06-06 15:04
PROVIDERS: PCP Internal Medicine; Visit Provider Internal Medicine
DX: E03.9 Hypothyroidism, unspecified (principal)
CPT/HCPCS: 84443

== ENCOUNTER 2024-07-03 15:45 | Outpatient (CLI) | payer MEDICARE, SELFPAY ==
[2024-07-03 18:55] LABS: Basophils # 0.1 K/mm3 (0-0.2); Basophils % 0.9 % (0.1-2.0); Eosinophils # 0.1 K/mm3 (0.0-0.4); Eosinophils % 1.1 % (0.1-12.0); Hematocrit 31.8 % (37.0-47.0); Hemoglobin 10.8 g/dL (12.2-16.2); Lymphocytes # 1.9 K/mm3 (0.7-4.5); Lymphocytes % 32.8 % (10-50); Mean Corpuscular Hemoglobin 31.8 pg (27.0-31.2); Mean Corpuscular Volume 93.5 fl (81-99); Mean Platelet Volume 9.9 fl (7.4-10.4); Monocytes # 0.4 K/mm3 (0.1-1.0); Monocytes % 6.1 % (1.7-9.3); Neutrophils # 3.4 K/mm3 (1.8-7.8); Neutrophils % 58.9 % (37.0-80.0); Platelet Count 221 K/mm3 (142-424); Red Cell Distribution Width 12.6 % (11.5-17.5); White Blood Count 5.7 K/mm3 (4.8-10.8)
[2024-07-03 21:03] LABS: Thyroid Stimulating Hormone 1.26 uIU/mL (0.465-4.68)
[2024-07-03 22:28] LABS: Vitamin B12 297 pg/mL (239-931)
[2024-07-03 23:05] LABS: Hemoglobin A1C 5.4 % (4.0-6.0)
[2024-07-05 18:32] LABS: Peripheral Smear Review Scanned Result
== END 2024-07-03 23:59 | disposition home or self-care (01) ==
LOC: LAB.DROPOF 07-04 14:28
PROVIDERS: PCP Internal Medicine; Visit Provider Internal Medicine
DX: D64.9 Anemia, unspecified (principal); E11.8 Type 2 diabetes mellitus with unspecified complications
CPT/HCPCS: 82607; 82728; 82746; 83036; 84443; 85025

== ENCOUNTER 2024-09-17 08:56 | Emergency (ER) | payer MEDICARE, SELFPAY ==
[2024-09-17] VITALS (11 sets, daily range): BP systolic 133–155; BP diastolic 65–84; PULSE 58–69; RESP 16–18; TEMP 36.8–36.9; O2SAT 95–99; BMI 25.3
--- NOTE | 2024-09-17 09:06 | ED_ITS ---
Discharge Plan Disposition Patient Disposition: Home, Self-Care Prescriptions Prescriptions: New cefdinir 300 mg capsule 300 mg PO BID 7 Days Qty: 14 0RF No Action estradiol 0.01 % (0.1 mg/gram) cream See Rx Instructions vaginal .COMPLEX Qty: 42.5 2RF Rx Instructions: Using finger technique daily for two weeks and then twice weekly vaginally; oxybutynin chloride 10 mg tablet extended release 24hr 10 mg PO DAILY Qty: 90 3RF omega-3 acid ethyl esters 1 gram capsule 1 cap PO BID 90 Days Qty: 180 3RF promethazine 12.5 mg tablet 12.5 mg PO Q4-6H PRN (Reason: nausea and vomiting) Qty: 30 1RF oxycodone 10 mg tablet 10 mg PO QID PRN (Reason: pain) 30 Days Qty: 120 0RF levothyroxine [Synthroid] 50 mcg tablet 50 mcg PO DAILY Qty: 90 3RF alprazolam [Xanax] 0.5 mg tablet 0.5 mg PO TID Qty: 90 2RF clopidogrel 75 mg tablet 75 mg PO DAILY Qty: 90 0RF oxycodone 10 mg tablet 10 mg PO QID PRN (Reason: pain) Qty: 120 0RF metformin 500 mg tablet 500 mg PO BID Qty: 60 3RF Linzess 290 mcg capsule 290 mcg PO DAILY Patient Comments: TAKE 1 CAPSULE BY MOUTH EVERY DAY 30 MINUTES BEFORE FIRST MEAL OF THE DAY ON AN EMPTY STOMACH Referrals Follow up/Referrals: Darrell Lane MD [Primary Care Provider] - See instructions Activity Restrictions/Add. Instructions Additional Instructions/Restrictions: Please follow-up with your primary doctor over the next couple of days. Please take the antibiotics as prescribed and the full course. Please continue drinking fluids. If your symptoms continue to worsen please come back to the emergency department. Clinical Impressions Clinical Impression: Acute UTI Instructions Patient Instructions: DI for Urinary Tract Infection (UTI), DI for Urinary Tract Infection in Children Print Language Print Language: Faroese Discharge ED Provider: Morales Melgoza Adult HPI General Chief complaint: Urogenital-Female Stated complaint: dehydrated, cant sleep, freq/burning urination Time Seen by Provider: 09/17/24 09:06 History of Present Illness HPI narrative: Patient is a 74-year-old past medical history of depression, anemia, urethritis, cystocele, appendectomy, cholecystectomy, hysterectomy, diabetes, reflux presenting for suprapubic abdominal pain and dysuria. Patient said that she has had similar symptoms multiple times in the past has been diagnosed with a UTI. Patient said her symptoms started last night and she has been extensively worked up with a urologist, hedis coordinator, plasma processing technician and has a referral to a urologist in [place] for further workup. They have told her that there is concerned that her bladder is lower than it should be and this causes some pain. She has had no fevers or chills and said that the pain she is experiencing is similar in severity to previous episodes. She had a bowel movement this morning, has had no vomiting, denies chest pain, shortness of breath. Related Data Home Medications ?Medication ?Instructions ?Recorded ?Confirmed linaclotide 290 mcg capsule 290 mcg PO DAILY 10/01/23 07/31/24 (Linzess) Previous Rx's ?Medication ?Instructions ?Recorded estradiol 0.01% (0.1 mg/gram) See Rx Instructions vaginal 03/03/24 vaginal cream .COMPLEX #42.5 grams oxybutynin chloride 10 mg 10 mg PO DAILY #90 tabs 03/03/24 tablet,extended release 24 hr alprazolam 0.5 mg tablet (Xanax) 0.5 mg PO TID #90 tabs 05/20/24 omega-3 acid ethyl esters 1 gram 1 cap PO BID 90 days #180 caps 06/05/24 capsule oxycodone 10 mg tablet 10 mg PO QID PRN pain 30 days #120 07/03/24 tabs promethazine 12.5 mg tablet 12.5 mg PO Q4-6H PRN nausea and 07/03/24 vomiting #30 tabs Synthroid 50 mcg tablet 50 mcg PO DAILY thyroid disease 07/31/24 (levothyroxine) #90 tabs clopidogrel 75 mg tablet 75 mg PO DAILY Blood thinner #90 08/13/24 tabs oxycodone 10 mg tablet 10 mg PO QID PRN pain #120 tabs 08/25/24 metformin 500 mg tablet 500 mg PO BID #60 tabs 09/16/24 cefdinir 300 mg capsule 300 mg PO BID 7 days #14 caps 09/17/24 Allergies Allergy/AdvReac Type Severity Reaction Status Date / Time cefaclor (From [facility]) Allergy Mild Verified 07/31/24 15:09 codeine Allergy Mild Verified 07/31/24 15:09 Sulfa (Sulfonamide Allergy Mild Verified 07/31/24 15:09 Antibiotics) [facility] Disclaimer: The information contained in this section may have been updated after the patient was seen, as this information can be updated by other users. Medical History Encounter for pre-operative cardiovascular clearance Abnormal electrocardiogram [ECG] [EKG] Hyperlipidemia Hypothyroidism Diabetes We have not done an HbA1c nor microalbumin and this patient. Again something that should have been done at previous visits. Will check this at her next visit. CAD (coronary artery disease) Anxiety Anuja Weston is following this patient and is writing for the alprazolam. Will leave this up to her at this point. COPD (chronic obstructive pulmonary disease) Panic disorder Surgical History Hx of appendectomy History of hysterectomy History of cholecystectomy History of thyroidectomy Family History Other No significant family history Social History Smoking Status: Never smoker alcohol intake: never current occupational status: retired Travel in the last 8 weeks?: None Have you lived/traveled outside [place] in past 30 days?: No Contact w/someone who lives/traveled outside [place] past 30 days?: No Exposure to someone with infectious disease in past 14 days?: No Do you have a fever (greater than 100.4 F or 38 C)?: No Have you tested positive for COVID-19?: No Exposed to someone with COVID-19 in past 14 days?: No Do you have a sore throat?: No Do you have a cough?: No Do you have any weakness?: No Do you have any diarrhea?: No Are you experiencing any unusual bleeding?: No Do you have any muscle aches/pain?: No Do you have any abdominal pain?: No Are you experiencing loss of taste or smell?: No Other Medical History Have you received the Flu Vaccine for this season: Yes Have you received the Pneumonia Vaccine: Yes ROS Obtained: Yes All systems reviewed & no additional complaints except as documented Physical Exam General General appearance: alert and in no apparent distress Eye Eye exam: Present normal appearance Respiratory Respiratory exam: Present normal lung sounds bilaterally Cardiovascular Cardiovascular exam: Present regular rate Abdominal Exam Abdominal exam: Present soft and tenderness (Suprapubic to light palpation); Absent distention, guarding, rebound or rigidity Neurological Exam Neurological exam: Present alert and oriented X3 Skin Skin exam: Present warm and dry Medical Decision Making Medical Records Screening: Per USPSTF and CDC recommendations, given the prevalence of disease in our region, it is our hospital?s policy to screen for HIV and viral Hepatitis for all patients aged 18 and over and those with ongoing risk factors. Marvin Inquiry Pt receiving controlled substance: No Vital Signs: 09/17/24 09:14 09/17/24 09:16 09/17/24 09:30 Temperature 98.2 F Temperature Source Oral Pulse Rate 66 69 Pulse Rate [Right Radial] 66 Respiratory Rate 18 Blood Pressure 151/76 H 155/81 H Blood Pressure [Right Arm] 151/76 H Blood Pressure Mean Blood Pressure Mean [Right Arm] 101 Blood Pressure Source Blood Pressure Source [Right Arm] Automatic Cuff Blood Pressure Position Blood Pressure Position [Right Arm] Supine 02 Sat by Pulse Oximetry 98 98 98 Oxygen Delivery Method Room Air Room Air 09/17/24 10:00 09/17/24 10:56 09/17/24 11:31 Temperature Temperature Source Pulse Rate 63 61 65 Pulse Rate [Right Radial] Respiratory Rate Blood Pressure 133/73 138/66 152/66 H Blood Pressure [Right Arm] Blood Pressure Mean 92 Blood Pressure Mean [Right Arm] Blood Pressure Source Blood Pressure Source [Right Arm] Blood Pressure Position Blood Pressure Position [Right Arm] 02 Sat by Pulse Oximetry 95 96 98 Oxygen Delivery Method Room Air Room Air 09/17/24 12:00 09/17/24 12:30 09/17/24 13:00 Temperature Temperature Source Pulse Rate 60 66 58 L Pulse Rate [Right Radial] Respiratory Rate Blood Pressure 136/68 141/65 H 152/71 H Blood Pressure [Right Arm] Blood Pressure Mean 90 91 91 Blood Pressure Mean [Right Arm] Blood Pressure Source Blood Pressure Source [Right Arm] Blood Pressure Position Blood Pressure Position [Right Arm] 02 Sat by Pulse Oximetry 98 98 98 Oxygen Delivery Method Room Air Room Air Room Air 09/17/24 13:30 09/17/24 13:59 Temperature 98.4 F Temperature Source Oral Pulse Rate 68 66 Pulse Rate [Right Radial] Respiratory Rate 16 Blood Pressure 142/84 H 142/68 H Blood Pressure [Right Arm] Blood Pressure Mean 95 Blood Pressure Mean [Right Arm] Blood Pressure Source Automatic Cuff Blood Pressure Source [Right Arm] Blood Pressure Position Sitting Blood Pressure Position [Right Arm] 02 Sat by Pulse Oximetry 98 Oxygen Delivery Method Room Air Room Air Lab Data Lab Results 09/17/24 09:10: Urine Color Yellow, Urine Appearance Slightly cloudy, Urine pH 7.5, Ur Specific Vera 1.015, Urine Protein Negative, Urine Glucose (UA) Negative, Urine Ketones Negative, Urine Blood Negative, Urine Nitrate Positive A , Urine Bilirubin Negative, Urine Urobilinogen 0.2, Ur Leukocyte Esterase Negative, Urine RBC None, Urine WBC 3-5, Ur Squamous Epith Cells 5-10, Urine Bacteria 2+ 09/17/24 09:19: WBC 5.8, RBC 3.80 L, Hgb 11.7 L, Hct 35.4 L, MCV 93.2, MCH 30.8, MCHC 33.1, RDW 13.4, Plt Count 277, MPV 9.4, Neut % (Auto) 67.6, Lymph % (Auto) 24.7, [place] % (Auto) 5.8, Eos % (Auto) 1.0, Baso % (Auto) 0.7, Neut # (Auto) 4.0, Lymph # (Auto) 1.4, [place] # (Auto) 0.3, Eos # (Auto) 0.1, Baso # (Auto) 0.0, Sodium 139, Potassium 3.8, Chloride 104, Carbon Dioxide 29, Anion Gap 9.8, BUN 14, Creatinine 0.70, Estimated Creat Clear 56, Estimated GFR 81, Est GFR ( Amer) 98, Glucose 127 H, Calcium 10.0, Total Bilirubin 0.6, AST 37 H, ALT 20, Alkaline Phosphatase 58, Total Protein 8.3 H, Albumin 4.9, Globulin 3.4 H, Albumin/Globulin Ratio 1.4, Lipase 29 09/17/24 09:39: VBG pH 7.37, VBG pCO2 45.7, VBG pO2 33.1, VBG HCO3 26.1, VBG Total CO2 27.5 H, VBG O2 Saturation 60.4, VBG Base Excess 0.8, VBG Lactic Acid 1.7 09/17/24 09:19 09/17/24 09:19 Orders (Tests/Meds): ED MEDICATIONS Discontinued Medications Generic Name Dose Route Start Last Admin Trade Name Vince PRN Reason Stop Dose Admin Iopamidol 75 ml 09/17/24 11:14 09/17/24 11:15 Iopamidol-370 (76%);100ml Bottle IV 09/17/24 11:15 75 ml ONCE ONE Administration Oxycodone HCl 10 mg 09/17/24 11:21 09/17/24 11:28 Oxycodone 5mg Immediate Release Tablet PO 09/17/24 11:22 10 mg ONCE ONE Administration Sodium Chloride 10 ml 09/17/24 11:14 09/17/24 11:15 Sodium Chloride 0.9% 10ml Syr (Rad Only) IV 09/17/24 11:15 10 ml ONCE ONE Administration ORDERS Category Date Time Status CT abdomen pelvis w con Stat Cat Scan 09/17/24 09:39 Completed CBC w/Auto Diff [Complete Blood Count Auto Diff] Stat Lab 09/17/24 09:19 Completed Comprehensive Metabolic Panel Stat Lab 09/17/24 09:19 Completed Lipase Stat Lab 09/17/24 09:19 Completed UA [Urinalysis and Microscopic] Stat Lab 09/17/24 09:10 Completed Urine Culture Stat Micro 09/17/24 09:10 Received Venous Blood Gas Stat RT 09/17/24 09:39 Completed Medical Decision Narrative: In summary, this 74-year-old female presents to the emergency department today with abdominal pain. On initial evaluation patient is mildly hypertensive, in no acute distress. The pain that she is having is similar to multiple previous visits and she most recently had an MRI done about 5 months ago that showed diverticula, and an abnormal focus in her right iliac bone of uncertain etiology on chart review. Offered patient pain medication but she deferred at this time as she has meds at home and does not want any right now. Additionally patient is concerned about dehydration but has been drinking Pedialyte will give her a liter of fluid. Differential diagnosis includes but is not limited to UTI, pyelonephritis, diverticulitis, bowel obstruction. Based on these concerns, I ordered CT abdomen pelvis, labs, fluid. Patient received oxycodone, but initially did not want any pain medication, fluids for treatment. Labs personally reviewed demonstrate mild anemia, improved from previous, electrolytes within normal limits. CT imaging personally interpreted demonstrate no hemoperitoneum or pneumoperitoneum. On reassessment patient's symptoms improved, but still having some dysuria, this has been a chronic issue that on chart review has been seen previously for and patient discussed that she has seen multiple specialist for similar symptoms. Due to her dysuria and urinalysis with questionable UTI I went ahead and gave her antibiotics to treat her symptoms. Patient discharged in stable condition, all questions answered, given strict return precautions Critical Care Critical Care Time Critical Care Time: No
--- OUTSIDE RECORDS SUMMARY | 2024-09-17 09:13 | XMS_ITS | Data Portability ---
Author Organization [place] - [facility] - [facility] ADMIN Address [address] [place] [place] [id number] Care Team Providers Care Yard Coordinator Name Role Phone RADHA BARKLEY Primary Care Provider [phone] Assessment Encounter Date Assessment Date Assessment LastModified by Organization Details LastModified Time 03/06/2023 03/06/2023 1. Abdominal pain - R10.9 (Primary) 2. Nausea - R11.0 3. Chronic idiopathic constipation - K59.04 4. Acid reflux - K21.9 5. History of colon polyps - Z86.[address] scan - R93.5 7. Chronic pancreatitis - K86.1 72 yo female with: 1. Abdominal pain/left sided distension: Continue Linzess 290 mcg and Miralax 1 to 3 times daily as needed and enemas as needed. -There was previously concern for chronic pancreatitis based on prior imaging, however endoscopic ultrasound last year did not demonstrate this. - I have ordered repeat CT abdomen for surveillance of the liver lesion as well as for evaluation of left sided abdominal pain and swelling. I suspect this is releated to her constipation. -She was provided samples of IBgard to trial for bloating. 2. CIC: Continue Linzess 3. Reflux: continue PPI and Tums as needed. -plan for repeat EGD. 4. Abnormal abdominal CT scan: 02/28/2021 CT of the abdomen and pelvis with IV contrast at [facility] revealed nodular liver margins indicative of mild/early cirrhosis. Lab workup for viral, metabolic and autoimmune causes of cirrhosis was unremarkable. US abdomen with normal appearing liver then. Repeat CT 03/29/22 showed an ill-defined hypodensity in the central liver, 3 month repeat was recommended. I have scheduled repeat CT per below. Not available 03/06/2023 23:22:54 02/29/2024 02/29/2024 73 yo female wit h chronic LUQ discomfort and irregular bowel habits. She complains of difficulty emptying her bowels. I suspect this may be multifactorial with constipation and possible EPI. She has prior evidence of chronic pancreatitis on CT, although EUS was indeterminate for this. 1. Abdominal pain/left sided distension: Continue Linzess 290 mcg and Miralax 1 to 3 times daily as needed and enemas as needed. -IBgard previously did not help. Creon did improve her symptoms. 2. Constipation: Continue Linzess 3. Abnormal abdominal CT scan: 02/28/2021 CT of the abdomen and pelvis with IV contrast at [facility] revealed nodular liver margins indicative of mild/early cirrhosis. Lab workup for viral, metabolic and autoimmune causes of cirrhosis was unremarkable. US abdomen with normal appearing liver then. Repeat CT 03/29/22 showed an ill-defined hypodensity in the central liver, 3 month repeat was recommended. She has undergone repeat CT x2 with no liver lesion redemonstrated. She did have evidence of possible chronic pancreatitis. 4) Chronic pancreatitis/EPI: Start Creon, 2 capsules with meals, 1 with snacks. She appears to have a high copay with this. If that is the case, we will see if she may be eligible for the medication through [employer]'s patient access support. -Creon samples provided in the office today. If no improvement at follow-up, plan for endoscopic procedures. [email or web address] Not available 02/29/2024 14:47:21 03/26/2024 03/26/2024 73 yo female wit h chronic LUQ discomfort and irregular bowel habits. She complains of difficulty emptying her bowels. I suspect this may be multifactorial with constipation and possible EPI. She has prior evidence of chronic pancreatitis on CT, although EUS was indeterminate for this. 1. Abdominal pain/left sided distension: Change laxative per below. We are working to get patient assistance for Creon, as it has helped with abodminal discomfort and bloating. 2. Constipation: Stop Linzess (ineffective and cost prohibitive). Start Lubiprostone 24 mcg p.o. twice daily with food. 3. Abnormal abdominal CT scan: 02/28/2021 CT of the abdomen and pelvis with IV contrast at [facility] revealed nodular liver margins indicative of mild/early cirrhosis. Lab workup for viral, metabolic and autoimmune causes of cirrhosis was unremarkable. US abdomen with normal appearing liver then. Repeat CT 03/29/22 showed an ill-defined hypodensity in the central liver, 3 month repeat was recommended. She has undergone repeat CT x2 with no liver lesion redemonstrated. She did have evidence of possible chronic pancreatitis. 4) Chronic pancreatitis/EPI: Creon, 2 capsules with meals, 1 with snacks prescribed but her Copay is too high to obtain. We have submitted an application for eligibility for the medication through [employer]'s patient access support. -Additional Creon samples provided in the office today. If no improvement at follow-up, consider endoscopic procedures. [email or web address] Not available 03/26/2024 15:29:14 07/22/2024 07/22/2024 73 yo female wit h chronic left sided abdominal discomfort and and constipation. She has prior evidence of chronic pancreatitis on CT, although EUS was indeterminate for this. She presents today with progressive lower GI discomfort, constipation, and note of rectal prolapse as well as urinary frequency concerning for female pelvic organ issue such as rectocele. -She will continue Linzess. High fiber diet counseled. -I have discussed referral for pelvic floor therapy and/or referral to colorectal surgery for further evaluation. She feels she would have a hard time making it to weekly PT visits. She is agreeable to see [facility] for what I feel is likely a rectocele. -She reports recent MRI at [facility]. I will request those results to send along with her referral. *Regarding chronic pancreatitis: This was mentioned on prior CT, but not subsequent CT. EUS was indeterminate. f/u 6 weeks [email or web address] Not available 07/22/2024 21:09:14 09/01/2024 09/01/2024 74 yo female wit h chronic left sided abdominal discomfort and and constipation. She has prior evidence of chronic pancreatitis on CT, although EUS was indeterminate for this. She has experienced progressive lower GI discomfort, constipation, and note of rectal prolapse as well as urinary frequency concerning for female pelvic organ issue such as rectocele. Gynecology told her she has a cystocele. -She will continue Linzess. High fiber diet counseled. -She previously deferred referral for pelvic floor therapy. -She has consultation with [facility] on 09/22/24. *Regarding chronic pancreatitis: This was mentioned on prior CT, but not subsequent CT. EUS was indeterminate. Cremerary did not previously change her GI symptoms. f/u 3 months. Not available 09/02/2024 21:54:52 Plan of Treatment Reminders Order Date Submit Date Provider Last Modified By Organization Details Last Modified Time Details Appointments Establish ed Visit 15 min 2024 02:30P M Darren Duncan PA-C Not available Not available Not available Lab None recorded. Referral colon & rectal surgeon referral 2024 025 Vanesa Rowley MD, [address], [address], [place], [address], 07/22/2024 21:10:19 Procedures None recorded. Surgeries None recorded. Imaging CT, abdomen, w/wo contrast 2022 023 [email or web address] 4 [facility] (Centralized Scheduling), [address], [place], [address], 04/06/2023 08:41:50 Medication Orders Nexium 20 mg capsule,d elayed release 2024 025 [facility] [employer] #[id number], [address], [id number], 09/01/2024 15:51:47 lubiprost one 24 mcg capsule 2023 024 [facility] [employer] [facility][id number], [address], [id number], 03/26/2024 14:39:28 Creon 36,000 unit-114, 000 unit-180, 000 unit capsule,d elayed release 2023 024 [facility][id number], [address], [id number], 02/29/2024 10:50:50 Patient TargetsNo targets recorded. Patient Instructions Encounter Date Encounter Id Patient Instructions Last Modified By Organization Details Last Modified Time 03/06/[id number] ABDOMEN AND PELVIS WITH CONTRAST 03/29/22 HISTORY: Generalized abdominal pain, vomiting for 3 years. COMPARISON: November 28, 2020. TECHNIQUE: Axial images were obtained from the lung bases through the pubic symphysis by computed tomography after the administration of IV contrast. Oral contrast was also administered. This study was performed with techniques to keep radiation doses as low as reasonably achievable, (ALARA). Individualized dose reduction techniques using automated exposure control or adjustment of mA and/or kV according to the patient's size were employed. FINDINGS: ABDOMEN: The lung bases are clear. Heart size is normal. There is hepatic steatosis. An ill-defined hypodensity is seen in the central liver. This is best seen on image 12, series 2. Patient is status post cholecystectomy. The spleen is normal. The pancreas is normal. There is a stable 1.2 cm left adrenal nodule. Right adrenal gland is unremarkable. The kidneys are unremarkable. There is no free fluid or adenopathy. The aorta is normal in caliber. PELVIS: The appendix is not identified. There is colonic diverticulosis without CT evidence of diverticulitis. Patient is status post hysterectomy. The urinary bladder is unremarkable. There is no pelvic free fluid or adenopathy. Degenerative changes are identified in the thoracolumbar spine. No acute bony abnormality is identified. IMPRESSION: No acute intraabdominal or intrapelvic process. Ill-defined hypodensity in the central liver. Consider follow-up CT of the abdomen with IV contrast in 3 months. [email or web address] Not available 03/06/2023 23:21:06 02/29/[id number] ABDOMEN AND PELVIS WITH CONTRAST 03/29/22 HISTORY: Generalized abdominal pain, vomiting for 3 years. COMPARISON: November 28, 2020. TECHNIQUE: Axial images were obtained from the lung bases through the pubic symphysis by computed tomography after the administration of IV contrast. Oral contrast was also administered. This study was performed with techniques to keep radiation doses as low as reasonably achievable, (ALARA). Individualized dose reduction techniques using automated exposure control or adjustment of mA and/or kV according to the patient's size were employed. FINDINGS: ABDOMEN: The lung bases are clear. Heart size is normal. There is hepatic steatosis. An ill-defined hypodensity is seen in the central liver. This is best seen on image 12, series 2. Patient is status post cholecystectomy. The spleen is normal. The pancreas is normal. There is a stable 1.2 cm left adrenal nodule. Right adrenal gland is unremarkable. The kidneys are unremarkable. There is no free fluid or adenopathy. The aorta is normal in caliber. PELVIS: The appendix is not identified. There is colonic diverticulosis without CT evidence of diverticulitis. Patient is status post hysterectomy. The urinary bladder is unremarkable. There is no pelvic free fluid or adenopathy. Degenerative changes are identified in the thoracolumbar spine. No acute bony abnormality is identified. IMPRESSION: No acute intraabdominal or intrapelvic process. Ill-defined hypodensity in the central liver. Consider follow-up CT of the abdomen with IV contrast in 3 months. [email or web address] Not available 02/29/2024 10:19:48 03/26/[id number] ABDOMEN AND PELVIS WITH CONTRAST 03/29/22 HISTORY: Generalized abdominal pain, vomiting for 3 years. COMPARISON: November 28, 2020. TECHNIQUE: Axial images were obtained from the lung bases through the pubic symphysis by computed tomography after the administration of IV contrast. Oral contrast was also administered. This study was performed with techniques to keep radiation doses as low as reasonably achievable, (ALARA). Individualized dose reduction techniques using automated exposure control or adjustment of mA and/or kV according to the patient's size were employed. FINDINGS: ABDOMEN: The lung bases are clear. Heart size is normal. There is hepatic steatosis. An ill-defined hypodensity is seen in the central liver. This is best seen on image 12, series 2. Patient is status post cholecystectomy. The spleen is normal. The pancreas is normal. There is a stable 1.2 cm left adrenal nodule. Right adrenal gland is unremarkable. The kidneys are unremarkable. There is no free fluid or adenopathy. The aorta is normal in caliber. PELVIS: The appendix is not identified. There is colonic diverticulosis without CT evidence of diverticulitis. Patient is status post hysterectomy. The urinary bladder is unremarkable. There is no pelvic free fluid or adenopathy. Degenerative changes are identified in the thoracolumbar spine. No acute bony abnormality is identified. IMPRESSION: No acute intraabdominal or intrapelvic process. Ill-defined hypodensity in the central liver. Consider follow-up CT of the abdomen with IV contrast in 3 months. Not available 03/26/2024 14:20:16 07/22/[id number] ABDOMEN AND PELVIS WITH CONTRAST 03/29/22 HISTORY: Generalized abdominal pain, vomiting for 3 years. COMPARISON: November 28, 2020. TECHNIQUE: Axial images were obtained from the lung bases through the pubic symphysis by computed tomography after the administration of IV contrast. Oral contrast was also administered. This study was performed with techniques to keep radiation doses as low as reasonably achievable, (ALARA). Individualized dose reduction techniques using automated exposure control or adjustment of mA and/or kV according to the patient's size were employed. FINDINGS: ABDOMEN: The lung bases are clear. Heart size is normal. There is hepatic steatosis. An ill-defined hypodensity is seen in the central liver. This is best seen on image 12, series 2. Patient is status post cholecystectomy. The spleen is normal. The pancreas is normal. There is a stable 1.2 cm left adrenal nodule. Right adrenal gland is unremarkable. The kidneys are unremarkable. There is no free fluid or adenopathy. The aorta is normal in caliber. PELVIS: The appendix is not identified. There is colonic diverticulosis without CT evidence of diverticulitis. Patient is status post hysterectomy. The urinary bladder is unremarkable. There is no pelvic free fluid or adenopathy. Degenerative changes are identified in the thoracolumbar spine. No acute bony abnormality is identified. IMPRESSION: No acute intraabdominal or intrapelvic process. Ill-defined hypodensity in the central liver. Consider follow-up CT of the abdomen with IV contrast in 3 months. [email or web address] Not available 07/22/2024 12:02:23 Reason for Referral Colon & Rectal Surgeon Refer ral for Disorder of rectum Referring Physician: Darren Duncan, Gastroenterology, Encounter Date: 07/22/2024 Results Created Date Observation Date Name Description Value Unit Range Abnormal Flag Note LastModifiedBy Organization Detail LastModifiedTime 04/02/2004/02/2023 [facility] [address] [place] [address] Phone: Fax: Name: MICHELLE WHITFIELD Exam Date: 2022 : 949 Age 72 Gender : F Access ion: [id number] Physic kleber: DARREN DUNCAN [place]: [place] Fac[place] HSV: Outpat ient Exam: CT ABD W/W/O CT ABDOME N WITH AND WITHOU T CONTRA ST TECHNI QUE: IV contra st enhanc ed exam HISTOR Y: Left-s ided flank pain COMPAR ZACHERY: 023. FINDIN GS: The lung bases are clear. There is no free air. There is athero sclero sis withou t aneury sm noted. The patien t is status post cholec ystect afsaneh. There is no focal liver lesion identi fied. The spleen is normal in size. There are calcif icatio ns within the head of the pancre as likely due to sequel a of chroni c pancre atitis . There is no acute inflam matory change identi fied. The left adrena l gland demons trates an adenom a measur ing 1.6 cm. The kidney s demons trate no eviden ce of hydron ephros is. There are no abnorm ally dilate d loops of bowel. The append ix is normal . The urinar y bladde r is decomp ressed . The patien t is status post hyster ectomy . There is no acute osseou s abnorm ality. IMPRES NIMISHA: Multip le chroni c findin gs withou t acute proces s. This study was perfor med using automa katie techni ques to achiev e radiat ion exposu re as low as reason ably achiev able The films were review ed, interp reted, and dictat ed by Dr. Silvio Oneill Transc ribed by Quique Rizo PA-C Dictat ed By: SILVIO ONEILL Transc ribed By: Silvio Oneill Transc ribed On: 2022 10:53 AM Electr onical ly signed by: SILVIO ONEILL 2022 Thank you for referr ing MIKO MICHELLE Lennie to [facility]. Legall y authen ticate d by POPE SILVIO Huber 2022-05 10:53: 28 CC'ed Logic: Orderi ng Provid er: DANIELLE NORTON Attend ing Provid er: DANIELLE NORTON Admitt ing Provid er: DANIELLE NORTON [facility] - Physical Therapy [address], [place], [address], 04/06/2023 15:37:51 07/25/19 25 04/16/2024 MRI, pelvi s, w/wo contr ast No observ ation record ed. [email or web address] [facility] (Med Record) [address], [place], [address], 07/24/2024 16:53:28 Result Notes None recorded. Problems Name Problem SNOMED Code Status Onset Date Resolution Date Notes Provider Name and Address Organization Details Recorded Time Left sided abdominal pain 834618458 Active 2023 Darren Duncan PA-C [address], [place], [address] , [place] - [facility] [place] & [place] 4 15:29:23 Disorder of rectum 3587549 Active 2024 Darren Duncan PA-C [address], [place], [address] , [place] [facility] [place] & [place] 5 12:14:59 Upper abdominal pain 49448247 Active 2024 Darren Duncan PA-C [address], [place], [address] , [place] [facility] [place] & [place] 5 15:49:45 Burning epigastric pain 59122531 Active 2024 Darren Duncan PA-C [address], [place], [address] , [place] [facility] [place] & [place] 5 17:11:13 Vitamin D deficiency 94908531 Active Lux Ward null, [place] [facility] [place] & [place] 2 14:26:26 Senile osteoporos is 42438948 Active Lux Everidge null, [place] [facility] & [place] 2 14:26:26 Chronic idiopathic constipati on 30610917 Active Lux Everidge [place] [facility] & [place] 2 14:26:26 Dyslipidem ia 676348055 Active Lux Everidge [place] [facility] [place] [facility] & [place] 2 14:26:26 Mood disorder 44914724 Active Lux Everidge [place] [facility] [place] [facility] & [place] 2 14:26:26 Smoker 20873394 Active Lux Everidge [place] [facility] [place] [facility] & [place] 2 14:26:26 Paresthesi a 40109014 Active Lux Everidge [place] [facility] [place] [facility] & [place] 2 14:26:26 History of polyp of colon 325924713 Active Lux Everidge [place], [place] [facility] [place] & [place] 2 14:26:27 Insomnia 039877940 Active Lux Kelleyidge [place] [facility] [place] & [place] 2 14:26:27 Chronic pancreatit is 076657372 Active Lux Everidge [place] [facility] [place] & [place] 2 14:26:27 Nausea 554481808 Active Lux Everidge [place] [facility] [place] [facility] & [place] 2 14:26:27 Gastroesop hageal reflux disease 087055222 Active Darren Duncan PA-C [address] , [place], [address] , [place] [facility] & [place] 5 15:38:17 Type 2 diabetes mellitus without complicati on 831037596 Active Lux Everidge [place] [facility] [place] [facility] & [place] 2 14:26:27 Heterozygo us Factor V Leiden mutation 044671863 Active Lux Everidge [place] [facility] & [place] 2 14:26:27 Cerebrovas cular accident 720611450 Active Lux Everidge [place], [place] [facility] [place] & [place] 2 14:26:27 Abdominal aortic atheroscle rosis 390538197 Active Lux Ward [place] [facility] [place] & [place] 2 14:26:27 Acid reflux 224406354 Active Lux Ward [place] [facility] [place] & [place] 2 14:26:27 Hypothyroi dism 67559837 Active Lux Ward [place] [facility] [place] & [place] 2 14:26:27 Abdominal pain 00116044 Active Lux Ward [place] [facility] [place] & [place] 2 14:26:27 Constipati on 37694797 Active Lux Ward [place], [place] [facility] & [place] 2 14:26:27 Urinary incontinen ce 786005104 Active Lux Ward [place] [facility] & [place] 2 14:26:27 Chronic mood disorder 9855393765040 08 Active 2022 Radha Goldberg MD [address], [place], [address] , [place] [facility] & [place] 3 13:33:16 Anxiety 45636319 Active 2022 Radha Goldberg MD [address], [place], [address] , [place] [facility] [place] & [place] 3 13:33:24 Lesion of liver 683039272 Active 2022 Darren Duncan PA-C [address], [place], [address] , [place] [facility] & [place] 3 15:11:32 Left upper quadrant pain 306994299 Active 2022 Darren Duncan PA-C [address], [place], [address] , [place] [facility] & [place] 3 15:11:39 Abdominal distension , gaseous 190853567 Active 2022 Darren Duncan PA-C [address], [place], [address] , [place] [facility] & [place] 3 15:11:51 Irritable bowel syndrome characteri zed by constipati on 176974345 Active 2022 Darren Duncan PA-C [address], [place], [address] , [place] [facility] & [place] 5 15:52:29 Exocrine pancreatic insufficie iny 70174677 Active 2022 Darren Duncan PA-C [address], [place], [address] , [place] [facility] & [place] 3 15:30:22 Problem Notes None recorded. Procedures Surgical History Date Name Laterality Status Provider Name and Address Organization Details Recorded Time Hysterectomy completed Lux Ward [place] [facility] & [place] 04/04/2022 14:31:13 Gallbladder Surgery completed Lux Sylvia [place] [facility] & [place] 04/04/2022 14:31:18 Appendectomy completed Lux Ward [place] [facility] & [place] 04/04/2022 14:31:23 Thyroidectomy completed Lux Sylvia [facility] & [place] 04/04/2022 14:31:28 Imaging Results Imaging Date Name Status LastModified by Organiz ation Details LastModified Time 04/02/2023 CT ABD w/w/O completed [address] - Physical Therapy [address], [place], [address], 04/06/2023 15:37:51 04/16/2024 MRI, pelvis, w/wo contrast completed [address] (Med Record) [address], [place], [address], 07/24/2024 16:53:28 Procedure Notes None recorded. Medical Equipment None Reported. Allergies Allergen ID Allergen Name Allergen Category Reaction Reaction Severity Criticality Documentation Date Start Date Code Code System Note Provider Name and Address Organization Details Recorded Time 94661 Ceclor medicatio n Not available Not available Not available 03/10/202285227 5 Rx[facility] Magy Peck null, [place] - [facility] & [place] 2 11:14:09 89793 codeine medicatio n Not available Not available Not available 04/04/2022 2670 RxNorm Lux Ward null, [place] [facility] [place] & [place] 2 14:26:17 Medications Name Sig Start Date Stop Date Status Note LastModified by Organization Details LastModified Time cyclobenzap rine 10 mg tablet TAKE 1 TABLET BY MOUTH THREE TIMES DAILY active Not Available Not Available No t Available metformin 500 mg tablet TAKE 1 TABLET BY MOUTH TWICE DAILY active Not Available Not Available No t Available trazodone 50 mg tablet TAKE 1 TABLET BY MOUTH EVERY DAY AT BEDTIME NEEDED active Not Available Not Available No t Available atorvastati n 10 mg tablet TAKE 1 TABLET BY MOUTH EVERY DAY active Not Available Not Available No t Available oxybutynin chloride ER 10 mg tablet,exte nded release 24 hr TAKE 1 TABLET BY MOUTH DAILY active Not Available Not Available No t Available azithromyci n 250 mg tablet TAKE 2 TABLETS BY MOUTH ON DAY 1, AND THEN TAKE 1 TABLET BY MOUTH ONCE A DAY ON DAY 2 THROUGH DAY 5 04/04 completed Not Available Not Available Not Available hydrocodone 5 mg-acetamin ophen 325 mg tablet TAKE 1 TABLET BY MOUTH DAILY 03/06 completed Not Available Not Available Not Available sucralfate 1 gram tablet TAKE 1 TABLET BY MOUTH FOUR TIMES DAILY active Not Available Not Available No t Available promethazin e 12.5 mg tablet TAKE 1 TABLET BY MOUTH EVERY 4 TO 6 HOURS NEEDED FOR NAUSEA OR VOMITING active Not Available Not Available No t Available phenazopyri dine 200 mg tablet TAKE 1 TABLET BY MOUTH TWICE A DAY NEEDED FOR BURNING URINE active Not Available Not Available No t Available ondansetron HCl 4 mg tablet TAKE 1 TABLET BY MOUTH EVERY 8 HOURS FOR 4 DAYS NEEDED FOR NAUSEA OR VOMITING 09/01 completed Not Available Not Available Not Available prednisone 20 mg tablet TAKE 1 TABLET BY MOUTH DAILY FOR 4 DAYS active Not Available Not Available No t Available desmopressi n 0.2 mg tablet active Not Available Not Available Not Available niacin ER 500 mg tablet,exte nded release 24 hr TAKE 1 TABLET BY MOUTH WITH FOOD ONCE DAILY active Not Available Not Available No t Available clopidogrel 75 mg tablet TAKE 1 TABLET BY MOUTH DAILY FOR BLOOD THINNER active Not Available Not Available No t Available ciprofloxac in 250 mg tablet TAKE 1 TABLET BY MOUTH TWICE DAILY FOR 7 DAYS 08/24 completed Not Available Not Available Not Available ciprofloxac in 500 mg tablet TAKE 1 TABLET BY MOUTH TWICE DAILY FOR 10 DAYS 03/26 completed Not Available Not Available Not Available sulfamethox azole 800 mg-trimetho prim 160 mg tablet TAKE 1 TABLET BY MOUTH TWICE DAILY FOR 7 DAYS active Not Available Not Available No t Available omeprazole 40 mg capsule,del ayed release TAKE 1 CAPSULE BY MOUTH ONCE DAILY 09/01 completed Not Available Not Available Not Available doxycycline monohydrate 100 mg tablet TAKE 1 TABLET BY MOUTH EVERY 12 HOURS 04/04 completed Not Available Not Available Not Available alprazolam 0.5 mg tablet TAKE 1 TABLET BY MOUTH THREE TIMES DAILY active Not Available Not Available No t Available propranolol 10 mg tablet TAKE 1 TABLET BY MOUTH TWICE DAILY active Not Available Not Available No t Available pravastatin 10 mg tablet Take 1 {tablet} by oral route. 05/09 completed Not Available Not Available Not Available hydrocodone 7.5 mg-acetamin ophen 325 mg tablet TAKE 1 TABLET BY MOUTH EVERY 6 HOURS NEEDED FOR PAIN FOR 14 DAYS 03/06 completed Not Available Not Available Not Available hyoscyamine sulfate 0.125 mg tablet TAKE 1 TABLET BY MOUTH 4 TIMES DAILY NEEDED active Not Available Not Available No t Available nitrofurant oin macrocrysta l 100 mg capsule TAKE 1 CAPSULE BY MOUTH EVERY NIGHT AT BEDTIME WITH FOOD active Not Available Not Available No t Available prednisone 50 mg tablet TAKE 1 TABLET BY MOUTH ONCE DAILY 04/04 completed Not Available Not Available Not Available promethazin e 25 mg tablet TAKE 1 TABLET BY MOUTH EVERY 6 HOURS NEEDED 05/09 completed Not Available Not Available Not Available Synthroid 75 mcg tablet TAKE 1 TABLET BY MOUTH ONCE DAILY active Not Available Not Available No t Available Synthroid 50 mcg tablet TAKE 1 TABLET BY MOUTH ONCE DAILY FOR THYROID DISEASE active Not Available Not Available No t Available gabapentin 300 mg capsule TAKE 1 CAPSULE BY MOUTH THREE TIMES DAILY active Not Available Not Available No t Available buspirone 7.5 mg tablet Take 1 tablet twice a day by oral route for 90 days. 05/09 completed Not Available Not Available Not Available omeprazole 20 mg capsule,del ayed release 09/01 completed Not Available Not Available Not Available hydroxyzine HCl 25 mg tablet TAKE 1 TABLET BY MOUTH TWICE DAILY NEEDED FOR ANXIETY active Not Available Not Available No t Available furosemide 20 mg tablet TAKE 1 TABLET BY MOUTH DAILY active Not Available Not Available No t Available Synthroid 112 mcg tablet TAKE 1 TABLET BY MOUTH DAILY active Not Available Not Available No t Available prednisone 5 mg tablets in a dose pack TAKE BY MOUTH DIRECTED ON INSIDE OF PACKAGE 09/01 completed Not Available Not Available Not Available levofloxaci n 500 mg tablet active Not Available Not Available Not Available estradiol 0.01% (0.1 mg/gram) vaginal cream USING FINGER TECHNIQUE USE VAGINALLY DAILY FOR 2 WEEKS AND THEN TWICE WEEKLY active Not Available Not Available No t Available methylpredn isolone 4 mg tablets in a dose pack TAKE DIRECTED ON PACKAGE INSTRUCTI ONS 04/04 completed Not Available Not Available Not Available albuterol sulfate HFA 90 mcg/actuati on aerosol inhaler INHALE 2 PUFFS BY MOUTH EVERY 4 HOURS NEEDED FOR WHEEZING 04/15 completed Not Available Not Available Not Available oxybutynin chloride 5 mg tablet TAKE 1 TABLET BY MOUTH TWICE DAILY FOR 15 DAYS NEEDED FOR BLADDER SPASMS active Not Available Not Available No t Available ondansetron 4 mg disintegrat ing tablet 1 tablet twice a day by oral route. active Not Available Not Available No t Available cefdinir 300 mg capsule TAKE 1 CAPSULE BY MOUTH TWICE DAILY active Not Available Not Available No t Available amoxicillin 500 mg-potassiu m clavulanate 125 mg tablet TAKE 1 TABLET BY MOUTH TWICE DAILY FOR 14 DAYS 03/26 completed Not Available Not Available Not Available esomeprazol e magnesium 20 mg capsule,del ayed release TAKE 1 CAPSULE BY MOUTH ONCE DAILY active Not Available Not Available No t Available oxycodone 5 mg tablet TAKE 1 TABLET BY MOUTH FOUR TIMES DAILY NEEDED FOR PAIN active Not Available Not Available No t Available hydroxyzine pamoate 25 mg capsule TAKE 1 CAPSULE BY MOUTH ONCE DAILY AT BEDTIME NEEDED active Not Available Not Available No t Available cyclobenzap rine 5 mg tablet active Not Available Not Available Not Available aripiprazol e 5 mg tablet 1 tablet every day by oral route. active Not Available Not Available No t Available nitrofurant oin monohydrate /macrocryst als 100 mg capsule TAKE 1 CAPSULE BY MOUTH TWICE DAILY FOR 5 DAYS active Not Available Not Available No t Available omega-3 acid ethyl esters 1 gram capsule TAKE 1 CAPSULE BY MOUTH DAILY active Not Available Not Available No t Available lubiproston e 24 mcg capsule Take 1 capsule twice a day by oral route for 30 days. 2023 active Not Available Not Available Not Avai lable fenofibrate nanocrystal lized 145 mg tablet TAKE 1 TABLET BY MOUTH ONCE DAILY active Not Available Not Available No t Available peg 3350-electr olytes 236 gram-22.74 gram-6.74 gram-5.86 gram solution USE DIRECTED 04/04 completed Not Available Not Available Not Available oxycodone 10 mg tablet TAKE 1 TABLET BY MOUTH FOUR TIMES DAILY NEEDED FOR PAIN active Not Available Not Available No t Available Linzess 290 mcg capsule TAKE 1 CAPSULE BY MOUTH EVERY DAY 30 MINUTES BEFORE FIRST MEAL OF THE DAY ON AN EMPTY STOMACH active Not Available Not Available No t Available Creon 36,000 unit-114,00 0 unit-180,00 0 unit capsule,del ayed release Take 2 capsules by mouth with meals, 1 capsule by mouth with snacks, 30 days. active Not Available Not Available No t Available naloxone 4 mg/actuatio n nasal spray CALL 911. SPR CONTENTS OF ONE SPRAYER (0.1ML) INTO ONE NOSTRIL. REPEAT IN 2-3 MIN IF SYMPTOMS OF OPIOID EMERGENCY PERSIST, ALTERNATE NOSTRILS active Not Available Not Available No t Available Rybelsus 3 mg tablet TAKE 1 TABLET BY MOUTH ONCE DAILY active Not Available Not Available No t Available Vitals Date Recorded Body height Body mass index (BMI) Body weight Body temperature Heart rate Heart rate Oxygen saturation Oxygen saturation in Arterial blood by Pulse oximetry Systolic blood pressure Diastolic blood pressure Provider Name and Address Organization Details Last Updated DateTime 3 170.18 cm 29.4 kg/m2 23612.9 3 g 97.3 [degF] 76 /min 78 /min 97 % 97 % 147 mm[Hg] 72 mm[Hg] Maite Chan [place] - [place] - [place] & [place] 3 14:11:33 Date Recorded Body height Provider Name an d Address Organization Details Last Updated DateTime 03/08/2023 170.18 cm Adelso BERRY - [place] [facility] & [place] 03/08/2023 14:02:55 Date Recorded Body height Body mass index (BMI) Body weight Heart rate Heart rate Oxygen saturation Oxygen saturation in Arterial blood by Pulse oximetry Body temperature Systolic blood pressure Diastolic blood pressure Provider Name and Address Organization Details Last Updated DateTime 4 170.18 cm 26.7 kg/m2 31359.4 2 g 77 /min 74 /min 96 % 96 % 98.1 [degF] 169 mm[Hg] 71 mm[Hg] Maiteshahbaz Gibbsdwell JAMAL - [facility] & [place] 4 09:42:56 Date Recorded Body height Body mass index (BMI) Body weight Body temperature Oxygen saturation Oxygen saturation in Arterial blood by Pulse oximetry Heart rate Systolic blood pressure Diastolic blood pressure Provider Name and Address Organization Details Last Updated DateTime 4 170.18 cm 26.6 kg/m2 54221.7 g 96.9 [degF] 95 % 95 % 97 /min 118 mm[Hg] 78 mm[Hg] Adelso Fish [facility] & [place] 4 13:58:10 Date Recorded Body height Body mass index (BMI) Body weight Body temperature Heart rate Heart rate Oxygen saturation Oxygen saturation in Arterial blood by Pulse oximetry Systolic blood pressure Diastolic blood pressure Provider Name and Address Organization Details Last Updated DateTime 5 170.18 cm 25.5 kg/m2 55227.9 2 g 97.9 [degF] 77 /min 72 /min 97 % 97 % 119 mm[Hg] 70 mm[Hg] Maite Chan JAMAL - [facility] & [place] 5 11:45:11 Date Recorded Body height Body mass index (BMI) Body weight Body temperature Heart rate Heart rate Oxygen saturation Oxygen saturation in Arterial blood by Pulse oximetry Systolic blood pressure Diastolic blood pressure Provider Name and Address Organization Details Last Updated DateTime 5 170.18 cm 25.6 kg/m2 85186.3 5 g 97.4 [degF] 80 /min 75 /min 98 % 98 % 106 mm[Hg] 69 mm[Hg] Maite Chan [facility] & [place] 5 14:52:06 Social History Question Answer Notes LastModified by Organizat ion Details LastModified Time Tobacco Smoking Status Current Every Day Smoker [facility] & [place] 04/04/2022 14:30:16 How Much Tobacco Do You Smoke? 0.25 PPD Information not available 04/04/2022 How Many Years Have You Smoked Tobacco? 60 Information not available 04/04/2022 Sex: Unknown Functional Status Question Answer Note LastModified by Organizat ion Details LastModified Time Do you use any illicit or recreational drugs? No Information not available 04/04/2022 What is your level of alcohol consumption? None Information not available 04/04/2022 Mental Status None recorded. Family History Relationship Description Onset Age of this Age Resolved Age Notes LastModified by Organization Details LastModified Time Mother Disorder of endocrine system pt. added direct ly (04/15) [email or web address] Not available 04/15/2022 13:48:04 Brother Disorder of endocrine system pt. added direct ly (04/15) [email or web address] Not available 04/15/2022 13:48:04 Maternal Aunt Disorder of endocrine system pt. added direct ly (04/15) [email or web address] Not available 04/15/2022 13:48:04 Medical History Condition Response None Y Thyroid Problems Y GI Problems Y Lung Disease Y COPD Y Clotting Disorder Y Osteoporosis/Osteopenia Y Spine Problems Y Obstructive Sleep Apnea Y Neurological Problems Y Diabetes Y Obesity Y Arthritis Y Back Problems Y Stroke Y Reflux/GERD Y High Cholesterol Y Heart Disease Y Psychiatric/Mental Health Condition Y Headaches Y Gynecological HistoryNo gynecological history recorded. Obstetrics History GPAL:G 0 P 0 0 0 0 Immunizations Vaccine Type Date Status Note Provider Nam e and Address Organization Details Recorded Time Influenza, split virus, quadrivalent, PF 1 completed Lux Ward [facility] & [place] 04/04/2022 14:32:16 COVID-19 vaccine, vector-nr, rS-Ad26, PF, 0.5 mL 1 completed Lux Ward damien JAMAL [facility] & [place] 04/04/2022 14:32:16 Pneumococcal conjugate PCV20, polysaccharide [id number] conjugate, adjuvant, PF 2 completed Lux quezada, JAMAL - [facility] - [place] & [place] 04/04/2022 14:32:16 COVID-19, mRNA, LNP-S, PF, 30 mcg/0.3 mL dose, marito-sucrose 2 completed Lux quezada JAMAL - [facility] - [place] & [place] 04/04/2022 14:32:16 Past Encounters Encounter ID Performer Location Encounter Start Date Encounter Closed Date Diagnosis/Indication Diagnosis SNOMED-CT Code Diagnosis ICD10 Code Diagnosis Note [id number] Patrice Miller MD [facility] [address] [place] [address] 03/10/2022 10:33:26 03/10/2022 12:07:12 Abdominal pain 70149469 R10.9 Chronic id iopathic constipation 70437029 K59.04 Nausea 431400626 R11.0 [id number] Radha Goldberg MD [address] [place] [address] 04/04/2022 14:12:31 04/04/2022 14:53:18 Gastroesophageal reflux disease 362865344 K21.00 Nausea 665802466 R11.0 Major depr essive disorder 311250927 F32.9 Anxiety 51009555 F41.9 [id number] Radha Goldberg MD [address] [place] [address] 05/09/2022 12:50:17 05/09/2022 13:33:30 Anxiety 32142547 F41.9 she is agreeable to trying 1/2 of the 7.5mg tablet once a day to work up to the BID dosing but declines 5mg rx. Mood disorder 10943796 F 39 pt declines any new meds, I provided the number to [facility] and asked that she please call today for an appt Nausea 825348291 R11.0 she asks for refill for prn use Chronic id iopathic constipation 87751937 K59.04 [id number] [facility] [address] [place] [address],[address] [place] [address] 08/24/2022 13:58:50 08/24/2022 14:43:01 Mass of left adrenal gland 5752065887 8660824 E27.8 new left-sided adrenal mass. I have ordered 24 hour urine and plasma labs. I will contact patient with the results. We discussed that small, nonfunctio vane adenomas will likely be followed for a period of time. Functionin g masses or ones that enlarged over time we will require excision, and she would be [facility] to [facility] for this. [id number] Darren Duncan PA-C [facility] [address] [address] 03/06/2023 13:52:11 03/06/2023 15:22:51 Lesion of liver 566924884 K76.9 Left upper quadrant pain 540728737 R10.12 Abdominal distension, gaseous 913598862 R14.0 Irritable bowel syndrome characterized by constipation 598414719 K58.1 [id number] Darren Duncan PA-C [facility] [address] [address] 02/29/2024 09:30:42 02/29/2024 11:05:29 Lesion of liver 978862174 K76.9 Left upper quadrant pain 491738209 R10.12 Abdominal distension, gaseous 048604421 R14.0 Irritable bowel syndrome characterized by constipation 836099892 K58.1 Chronic pancreatitis 235 633029 K86.1 Exocrine p ancreatic insufficiency 39550037 K86.81 [id number] Darren Duncan PA-C [facility] [address] [address] 03/26/2024 13:47:22 03/26/2024 14:43:37 Chronic pancreatitis 399965496 K86.1 Exocrine p ancreatic insufficiency 56724246 K86.81 Patient has an MRI abd/pelvis scheduled on 04/16 by her PCP at [facility]. Chronic id iopathic constipation 34879677 K59.04 Left sided abdominal pain 664776873 R10.9 [id number] Darren Duncan PA-C [facility] [address] [place] [address] 07/22/2024 11:37:53 07/22/2024 12:29:14 Left sided abdominal pain 950851151 R10.9 Chronic id iopathic constipation 16264858 K59.04 Chronic pancreatitis 235 737125 K86.1 Disorder of rectum 19921 04 N81.6 [id number] Darren Duncan PA-C [facility] [address] [place] [address] 09/01/2024 14:42:37 09/01/2024 16:11:17 Disorder of rectum 8619879 N81.6 Left sided abdominal pain 227379354 R10.9 Chronic pancreatitis 235 174927 K86.1 Upper abdominal pain 831 60602 R10.10 Irritable bowel syndrome characterized by constipation 299253037 K58.1 Health Concerns Section Related Observation LastModified by Organization Detai ls LastModified Time None Recorded Concern Status LastModified by Organization Details LastModified Time None Recorded Advance Directives Directive None Recorded Payers Insurance Date Sequence Insurance Name Policy Number Policy Gallardo Covered Member ID Gallardo Member ID Guarantor Name 02/29/2024 1 [place] [id number] Rox M Whitfield [id number] Rox Whitfield 02/29/2024 1 [employer] (MEDICARE REPLACEMENT/AD VANTAGE - PPO) Rox Whitfield [id number] Rox Whitfield 02/29/2024 1 [employer] [place] Rox Whitfield [id number] Rox Whitfield 02/29/2024 3 [employer] (MEDICARE REPLACEMENT/AD VANTAGE - HMO) Rox M Whitfield [id number] Rox Whitfield 02/29/2024 1 [employer] [place] (MEDICARE REPLACEMENT/[place] VANTAGE - HMO) Rox Whitfield [id number] Rox Whitfield 02/29/2024 1 [place] Rox M Whitfeild [id number] Rox Whitfield 02/29/2024 1 [employer] (MEDICARE REPLACEMENT HMO) Rox Whitfield [id number] Rox Whitfield 08/29/2024 1 [employer] (MEDICARE REPLACEMENT/AD VANTAGE - PPO) Rox Whitfield [id number] Rox Whitfield 02/29/2024 1 [employer] (MEDICARE REPLACEMENT/AD VANTAGE - HMO) Rox M Whitfield [id number] Rox Whitfield 02/29/2024 2 [employer] (MEDICARE REPLACEMENT HMO) Rox Whitfield [id number] Rox Whitfield 02/29/2024 1 [employer] [place] (MEDICA[place]) Rox Whitfield [id number] Rox Whitfield 02/29/2024 1 [employer] (MEDICARE REPLACEMENT HMO) Rox Whitfield [id number] Rox Whitfield Notes Date Note Type Note Provider Name and Address Organization Details Recorded Time 03/06/2023 text/html Ms. Whitfield presen ts to the office today with complaint of left sided abdominal discomfort with intermittent left sided abdominal distension. She has a history of chronic constipation for which she is taking Linzess 290 mcg once daily. She feels this works ok for her. She has a bowel movement most days, about 45 minutes after taking the medication. She uses a heating pad at times, which seems to soothe her discomfort. She had a CT last March with finding of a non-specific liver lesion. Repeat imaging was suggested, but she has not followed up regarding this. She denies heartburn, nausea, vomiting, or intolerance of a p.o. diet. Darren Duncan PA-C [address], [place], [address], [place] - [facility] - [place] & [place] 03/06/2023 23:23:18 02/29/2024 text/html CURRENT ( 4): Ms. Whitfield presents to the office today with complaint of left sided abdominal discomfort and constipation. She feels that stool does not want to pass through her left colon well. She is having left flank and lower rib discomfort. She will go 3-4 days between BMs. She uses 2 dulcolax, which doesnt seem to be working. She has taken Linzess for the past few years. It will help her bowels move, but she has a lot of liquid that follows solid stools. She feels she has a difficult time expelling gas. Maalox has not provided relief. She recalls that Creon sample previously seemed to help quite a bit. She underwent CT in the past that indicated chronic pancreatitis. She had repeat CT in December of this year with no mention of pancreatic issue. I have personally reviewed those films and my interpretation is that there are small likely peripancreatic calcifications vs. vascular calcifications. There are calcification throughout out the abdominal and thoracic aorta. No overt constipation is noted. Darren Duncan PA-C [address], [place], [address], [facility] - [place] - [place] & [place] 02/29/2024 14:47:59 03/26/2024 text/html CURRENT ( 4): Ms. Whitfield presents to the office today with complaint of left sided abdominal discomfort and constipation. She feels that stool does not want to pass through her left colon well. She is having left flank and lower rib discomfort. She will go 3-4 days between BMs. She uses 2 dulcolax, which doesnt seem to be working. She has taken Linzess for the past few years. It will help her bowels move, but she has a lot of liquid that follows solid stools. She feels she has a difficult time expelling gas. Maalox has not provided relief. She recalls that Creon sample previously seemed to help quite a bit. She underwent CT in the past that indicated chronic pancreatitis. She had repeat CT in December of this year with no mention of pancreatic issue. I have personally reviewed those films and my interpretation is that there are small likely peripancreatic calcifications vs. vascular calcifications. There are calcification throughout out the abdominal and thoracic aorta. No overt constipation is noted. CURRENT (03/26/24): Ms. Whitfield returns to the office today for follow-up regarding abdominal pain, EPI, and constipation. She feels that Linzess does not work as well for her as it once did. She complains of LLQ fullness sensation and bloating. She denies nausea, vomiting, or blood stools. Darren Duncan PA-C [address], [place], [address], [place] - [facility] & [place] 03/26/2024 15:30:09 07/22/2024 text/html CURRENT (07/22/24 ): Ms. Whitfield returns to the office today for follow-up. She continues to complaint of LLQ abdominal fullness and constipation. She is also experiencing frequent urination and dysuria. She states she recently underwent cystoscopy with urology and they told her there was no UTI. She feels as if stool is compressing her bladder. She notes rectal prolapse with bearing down as well as some prolapse of the urethral meatus. She has undergone hysterectomy previously. She has a history of questionable chronic pancreatitis noted on prior CT imaging. She did not find Creon helpful for her symptoms and thus stopped it. Currently, she is taking Linzess 290 mcg once daily and 2-3 dulcolax. Even this does not allow her to have a BM but once every few days. Darren Duncan PA-C [address], [place], [address], [place] - [facility] & [place] 07/22/2024 21:10:42 09/01/2024 text/html CURRENT (09/01/24 ): Ms. Whitfield returns to the office today for follow-up regarding LLQ pain, constipation, and abdominal bloating/distension. She was recent referred to [facility] for suspected rectocele. She has a consultation there on 09/22. She recently saw gynecology and was told she had a cystocele. She reports cystoscopy was normal. She was prescribed oxycodone for pain associated with urination. She is having frequent nocturia. She has continued Linzess. She reports having a single large and urgent BM in the afternoons. She continues to struggle with abdominal pain and distension in the LLQ. Darren Duncan PA-C [address], [place], [address], [place] - [facility] & [place] 09/02/2024 21:55:38 OBGyn Episode No OBEpisode recorded.
--- OUTSIDE RECORDS SUMMARY | 2024-09-17 09:13 | XMS_ITS ---
Author Organization Unknown TREATMENT PLAN [facility] Start Date Provider Encounter for Check-up [id number] ARCHIE Kelley
--- OUTSIDE RECORDS SUMMARY | 2024-09-17 09:13 | XMS_ITS | Continuity of Care Document ---
Author Organization [place] - [place] - [place] & [place], [facility] Address [address] [facility] [address] [place] [address] Care Team Providers Care Stapler Hand Name Role Phone RADHA BARKLEY Primary Care Provider Assessment Encounter Date Assessment Date Assessment LastModified by Organization Details LastModified Time 09/01/2024 09/01/2024 74 yo female with chronic left sided abdominal discomfort and and [...] but not subsequent CT. EUS was indeterminate. Creon did not previously change her GI symptoms. f/u 3 months. Not available 09/02/2024 21:54:52 Plan of Treatment Reminders Order Date Submit Date Provider Last Modified By Organization Details Last Modified Time Details Appointments Establish ed Visit 15 min 2024 02:30P M Darren Duncan PA-C Not available Not available Not available Lab None recorded. Referral None recorded. Procedures None recorded. Surgeries None recorded. Imaging None recorded. Medication Orders Nexium 20 mg capsule,d elayed release 2024 025 [facility][id number], [address] [address] [place], [id number], 09/01/2024 15:51:47 Patient TargetsNo targets recorded. Patient InstructionsNo instructions recorded. Reason for Referral None Reported. Problems Name Problem SNOMED Code Status Onset Date Resolution Date Notes Provider Name and Address Organization Details Recorded Time Left sided abdominal pain 760636866 Active 2023 Darren Duncan PA-C [address], [place], [address] , [place] - [place] & [place] 4 15:29:23 Disorder of rectum 8439113 Active 2024 Darren Duncan PA-C [address], [place], [address] , [place] [facility] - [facility] & [place] 5 12:14:59 Upper abdominal pain 97611417 Active 2024 Darren Duncan PA-C [address], [place], [address] , [place] - [place] - [facility] & [place] 5 15:49:45 Burning epigastric pain 44925050 Active 2024 Darren Duncan PA-C [address], [place], [address] , [place] [facility] - [facility] & [place] 5 17:11:13 Vitamin D deficiency 67565382 Active Lux Everidge null, [place] - [facility] & [place] 2 14:26:26 Senile osteoporos is 97721674 Active Lux Everidge null, [place] - [facility] & [place] 2 14:26:26 Chronic idiopathic constipati on 64476734 Active Lux Everidge null, [place] [facility] & [place] 2 14:26:26 Dyslipidem ia 840711934 Active Lux Everidge null, [place] [facility] & [place] 2 14:26:26 Mood disorder 68361450 Active Lux Everidge null, [place] [facility] & [place] 2 14:26:26 Smoker 81400857 Active Lux Everidge null, [place] & [place] 2 14:26:26 Paresthesi a 95551248 Active Lux Ward null, [place] & [place] 2 14:26:26 History of polyp of colon 822448825 Active Lux Ward null, [place] & [place] 2 14:26:27 Insomnia 930758916 Active Lux Ward null, [place] & [place] 2 14:26:27 Chronic pancreatit is 677239727 Active Lux Ward null, [place] & [place] 2 14:26:27 Nausea 361340180 Active Lux Ward null, [place] & [place] 2 14:26:27 Gastroesop hageal reflux disease 948785795 Active Darren Duncan PA-C [address] [facility], [place], [address] , [place] - [place] & [place] 5 15:38:17 Type 2 diabetes mellitus without complicati on 614188915 Active Lux Ward null, [place] & [place] 2 14:26:27 Heterozygo us Factor V Leiden mutation 790285362 Active Lux Ward null, [place] & [place] 2 14:26:27 Cerebrovas cular accident 987305673 Active Lux Ward null, [place] & [place] 2 14:26:27 Abdominal aortic atheroscle rosis 248097182 Active Lux Ward null, [place] & [place] 2 14:26:27 Acid reflux 582009978 Active Lux Ward null, [place] & [place] 2 14:26:27 Hypothyroi dism 61723200 Active Lux Ward null, [place] & [place] 2 14:26:27 Abdominal pain 60583447 Active Lux Ward null, [place] & [place] 2 14:26:27 Constipati on 18232905 Active Lux Ward null, [place] & [place] 2 14:26:27 Urinary incontinen ce 808862554 Active Lux Ward null, [place] & [place] 2 14:26:27 Chronic mood disorder 0485030675413 08 Active 2022 Radha Goldberg MD [address], [place], [address] , [place] - [place] & [place] 3 13:33:16 Anxiety 08308816 Active 2022 Radha Goldberg MD [address] , [place], [address] , [place] - [place] & [place] 3 13:33:24 Lesion of liver 684718907 Active 2022 Darren Duncan PA-C [address] , [place], [address] , [place] - [place] & [place] 3 15:11:32 Left upper quadrant pain 663195000 Active 2022 Darren Duncan PA-C [address] , [place], [address] , [place] - [place] & [place] 3 15:11:39 Abdominal distension , gaseous 483075518 Active 2022 Darren Duncan PA-C [address] , [place], [address] , [place] - [place] & [place] 3 15:11:51 Irritable bowel syndrome characteri zed by constipati on 619067430 Active 2022 Darren Duncan PA-C [address] , [place], [address] , [place] - [place] & [place] 5 15:52:29 Exocrine pancreatic insufficie mny 73442173 Active 2022 Darren Duncan PA-C [address], [place], [address] , JAMAL DAVID [facility] & [place] 3 15:30:22 Problem Notes None recorded. Procedures Surgical History Date Name Laterality Status Provider Name and Address Organization Details Recorded Time Hysterectomy completed Lux DAVID [facility] & [place] 04/04/2022 14:31:13 Gallbladder Surgery completed Lux DAVID [facility] & [place] 04/04/2022 14:31:18 Appendectomy completed Lux DAVID [facility] & [place] 04/04/2022 14:31:23 Thyroidectomy completed Lux DAVID [facility] & [place] 04/04/2022 14:31:28 Imaging Results None recorded. Procedure Notes None recorded. Medical Equipment None Reported. Allergies Allergen ID Allergen Name Allergen Category Reaction Reaction Severity Criticality Documentation Date Start Date Code Code System Note Provider Name and Address Organization Details Recorded Time 64010 Ceclor medicatio n Not available Not available Not available 03/10/2022 54647 5 RxNorm JAMAL Baumann [facility] & [place] 2 11:14:09 51931 codeine medicatio n Not available Not available Not available 04/04/2022 2670 RxNorm JAMAL De Leon [facility] & [place] 2 14:26:17 Medications Name Sig Start Date [...] Updated DateTime 5 170.18 cm 25.6 kg/m2 54120.3 5 g 97.4 [degF] 80 /min 75 /min 98 % 98 % 106 mm[Hg] 69 mm[Hg] Maite Chan [facility] & [place] 5 14:52:06 Social History Question Answer Notes LastModified by [employer] Details LastModified Time Tobacco Smoking Status Current Every Day Smoker Lux Ward [facility] & [place] 04/04/2022 14:30:16 How Much Tobacco Do You Smoke? 0.25 PPD Information not available 04/04/2022 How Many Years Have You Smoked Tobacco? 60 Information not available 04/04/2022 Sex: Unknown Functional Status Question Answer Note LastModified by [employer] Details LastModified Time Do you use any [...] available 04/15/2022 13:48:04 Medical History Condition Response Diabetes Y Obesity Y None Y Arthritis Y Back Problems Y Thyroid Problems Y Stroke Y COPD Y GI Problems Y Lung Disease Y Osteoporosis/Osteopenia Y Clotting Disorder Y Reflux/GERD Y High Cholesterol Y Spine Problems Y Psychiatric/Mental Health Condition Y Heart Disease Y Headaches Y Obstructive Sleep Apnea Y Neurological Problems Y Gynecological HistoryNo gynecological history recorded. Obstetrics History GPAL:G 0 P 0 0 0 0 Immunizations Vaccine Type Date Status Note Provider Nam e and Address Organization Details Recorded Time Influenza, split virus, quadrivalent, PF 1 completed Lux Ward null, [place] & [place] 04/04/2022 14:32:16 COVID-19 vaccine, vector-nr, rS-Ad26, PF, 0.5 mL 1 completed Lux Ward null, [place] & [place] 04/04/2022 14:32:16 Pneumococcal conjugate PCV20, polysaccharide [id number] conjugate, adjuvant, PF 2 completed Lux [place], [place] - [place] - [place] & [place] 04/04/2022 14:32:16 COVID-19, mRNA, LNP-S, PF, 30 mcg/0.3 mL dose, marito-sucrose 2 completed Lux Ward null, [place] & [place] 04/04/2022 14:32:16 Past Encounters Encounter ID Performer Location Encounter Start Date Encounter Closed Date Diagnosis/Indication Diagnosis SNOMED-CT Code Diagnosis ICD10 Code Diagnosis Note [id number] Darren Duncan PA-C [facility] [address] 09/01/2024 14:42:37 09/01/2024 16:11:17 Disorder of rectum 8262629 N81.6 Left sided abdominal pain 923386017 R10.9 Chronic pancreatitis 235 105289 K86.1 Upper abdominal pain 831 16718 R10.10 Irritable bowel syndrome characterized by constipation 593949972 K58.1 Health Concerns Section Related Observation LastModified by Organization Detai ls LastModified Time None Recorded Concern Status LastModified by Organization Details LastModified Time None Recorded Payers Encounter Date Sequence Insurance Name Policy Number Policy Gallardo Covered Member ID Gallardo Member ID Guarantor Name 09/01/2024 1 [employer] (MEDICARE REPLACEMENT/A DVANTAGE - PPO) Rox Whitfield [id number] Rox Whitfield Notes Date Note Type Note Provider Name and Address Organization Details Recorded Time 09/01/2024 text/html CURRENT (09/01/24 ): Ms. Whitfield returns to the office today for follow-up regarding LLQ pain, constipation, and abdominal bloating/distensio n. She was recent referred to [facility] for [...] distension in the LLQ. Darren Duncan PA-C [address] , [place], [address], [facility] - [place] - [place] & [place] 09/02/2024 21:55:38 OBGyn Episode No OBEpisode recorded.
--- OUTSIDE RECORDS SUMMARY | 2024-09-17 09:13 | XMS_ITS | Continuity of Care Document ---
Author Organization [place] [facility] Address [address] [facility] [address] [place] [address] Care Team Providers Care Premium Auditor Name Role Phone RADHA BARKLEY Primary Care Provider [phone] Assessment Encounter Date Assessment Date Assessment LastModified by Organization Details LastModified Time 07/22/2024 07/22/2024 73 yo female with chronic left sided abdominal [...] a rectocele. -She reports recent MRI at [facility]. I will request those results to send along with her referral. *Regarding chronic pancreatitis: This was mentioned on prior CT, but not subsequent CT. EUS was indeterminate. f/u 6 weeks [email or web address] Not available 07/22/2024 21:09:14 Plan of Treatment Reminders Order Date Submit Date Provider Last Modified By Organization Details Last Modified Time Details Appointments Establish ed Visit 15 min 2024 02:30P M Darren Duncan PA-C Not available Not available Not available Lab None recorded. Referral colon & rectal surgeon referral 2024 025 Vanesa Rowley MD, [address], [facility] [address], [place], [address], 07/22/2024 21:10:19 Procedures None recorded. Surgeries None recorded. Imaging None recorded. Medication Orders None recorded. Patient TargetsNo targets recorded. Patient Instructions Encounter Date Encounter Id Patient Instructions Last Modified By Organization Details Last Modified Time 07/22/[id number] ABDOMEN AND PELVIS WITH CONTRAST 03/29/22 [...] abdomen with IV contrast in 3 months. [email or web address] Not available 07/22/2024 12:02:23 Reason for Referral Colon & Rectal Surgeon Refer ral for Disorder of rectum Referring Physician: Darren Duncan, Gastroenterology, Encounter Date: 07/22/2024 Results Created Date Observation Date Name Description Value Unit Range Abnormal Flag Note LastModifiedBy Organization Detail LastModifiedTime 07/25/19 25 04/16/2024 MRI, pelvi s, w/wo contr ast No observ ation record ed. [email or web address] Psychiatric (Med Record) [address], [place], [address], 07/24/2024 16:53:28 Result Notes None recorded. Problems Name Problem SNOMED Code Status Onset Date Resolution Date Notes Provider Name and Address Organization Details Recorded Time Left sided abdominal pain 454469066 Active 2023 Darren Duncan PA-C [address], [place], [address] , [place] - [facility] - [facility] & [place] 4 15:29:23 Disorder of rectum 0932808 Active 2024 Darren Duncan PA-C [address], [place], [address] , [place] & [place] 5 12:14:59 Upper abdominal pain 53112415 Active 2024 Darren Duncan PA-C [address], [place], [address] , [place] [facility] & [place] 5 15:49:45 Burning epigastric pain 69383382 Active 2024 Darren Duncan PA-C [address], [place], [address] , [place] - [facility] - [facility] & [place] 5 17:11:13 Vitamin D deficiency 61183905 Active Lux Everidge null, [place] & [place] 2 14:26:26 Senile osteoporos is 45084545 Active Lux Everidge [place], [place] [facility] & [place] 2 14:26:26 Chronic idiopathic constipati on 16809831 Active Lux Everidge [place], [place] & [place] 2 14:26:26 Dyslipidem ia 158992345 Active Lux Everidge null, [place] [facility] [facility] & [place] 2 14:26:26 Mood disorder 72242148 Active Lux Everidge [place], [place] [facility] & [place] 2 14:26:26 Smoker 21092391 Active Lux Everidge null, [place] & [place] 2 14:26:26 Paresthesi a 16176855 Active Lux Ward null, [place] & [place] 2 14:26:26 History of polyp of colon 357748246 Active Lux Ward [place] 2 14:26:27 Insomnia 393653913 Active Lux Ward [place] & [place] 2 14:26:27 Chronic pancreatit is 860529517 Active Lux Ward [place] & [place] 2 14:26:27 Nausea 750747719 Active Lux Ward [place], [place] & [place] 2 14:26:27 Gastroesop hageal reflux disease 718211070 Active Darren Duncan PA-C [address] [facility], [place], [address] , [place] & [place] 5 15:38:17 Type 2 diabetes mellitus without complicati on 003375902 Active Lux Ward [place] 2 14:26:27 Heterozygo Factor V Leiden mutation 175939225 Active Lux Ward [place], [place] 2 14:26:27 Cerebrovas cular accident 456174028 Active Lux Ward [place] 2 14:26:27 Abdominal aortic atheroscle rosis 344350993 Active Lux Ward [place] 2 14:26:27 Acid reflux 301164941 Active Lux Ward [place] 2 14:26:27 Hypothyroi dism 18526649 Active Lux Ward [place] 2 14:26:27 Abdominal pain 49994337 Active Lux Everidge [place], [place] [facility] & [place] 2 14:26:27 Constipati on 19034746 Active Lux Ward [place], [place] [facility] & [place] 2 14:26:27 Urinary incontinen ce 246934982 Active Lux Ward [place], [place] [facility] & [place] 2 14:26:27 Chronic mood disorder 4114104260248 08 Active 2022 Radha Goldberg MD [address], [place], [address] , [place] & [place] 3 13:33:16 Anxiety 22026059 Active 2022 Radha Goldberg MD [address], [place], [address] , [place] & [place] 3 13:33:24 Lesion of liver 517192154 Active 2022 Darren Duncan PA-C [address], [place], [address] , [place] & [place] 3 15:11:32 Left upper quadrant pain 704157548 Active 2022 Darren Duncan PA-C [address], [place], [address] , [place] 3 15:11:39 Abdominal distension , gaseous 826751066 Active 2022 Darren Duncan PA-C [address], [place], [address] , [place] & [place] 3 15:11:51 Irritable bowel syndrome characteri zed by constipati on 775326897 Active 2022 Darren Duncan PA-C [address], [place], [address] , [place] 5 15:52:29 Exocrine pancreatic insufficie oky 71950806 Active 2022 Darren Duncan PA-C [address] [facility], [place], [address] , JAMAL DAVID [facility] & [place] 3 15:30:22 Problem Notes None recorded. Procedures Surgical History Date Name Laterality Status Provider Name and Address Organization Details Recorded Time Hysterectomy completed Lux DAVID [facility] & [place] 04/04/2022 14:31:13 Gallbladder Surgery completed Lux DAVID [facility] & [place] 04/04/2022 14:31:18 Appendectomy completed Lux DAVID [facility] & [place] 04/04/2022 14:31:23 Thyroidectomy completed Lux DAVID [facility] & [place] 04/04/2022 14:31:28 Imaging Results None recorded. Procedure Notes None recorded. Medical Equipment None Reported. Allergies Allergen ID Allergen Name Allergen Category Reaction Reaction Severity Criticality Documentation Date Start Date Code Code System Note Provider Name and Address Organization Details Recorded Time 92554 Ceclor medicatio n Not available Not available Not available 03/10/202260603 5 RxNorm JAMAL Baumann [facility] & [place] 2 11:14:09 00712 codeine medicatio n Not available Not available Not available 04/04/2022 2670 RxNorm JAMAL De Leon [facility] & [place] 2 14:26:17 Medications Name Sig Start Date [...] Not Available No t Available amoxicillin 500 mg-ronaldu m clavulanate 125 mg tablet TAKE 1 [...] Updated DateTime 5 170.18 cm 25.5 kg/m2 76156.9 2 g 97.9 [degF] 77 /min 72 /min 97 % 97 % 119 mm[Hg] 70 mm[Hg] Maite Chan [facility] & [place] 5 11:45:11 Social History Question Answer Notes LastModified by [employer] Details LastModified Time Tobacco Smoking Status Current Every Day Smoker Lux Ward [facility] & [place] 04/04/2022 14:30:16 How Much Tobacco Do You Smoke? 0.25 PPD Information not available 04/04/2022 How Many Years Have You Smoked Tobacco? 60 Information not available 04/04/2022 Sex: Unknown Functional Status Question Answer Note LastModified by [employer] Details LastModified Time Do you use any [...] 13:48:04 Medical History Condition Response Diabetes Y None Y Obesity Y Arthritis Y Back Problems Y Stroke Y Thyroid Problems Y COPD Y Lung Disease Y GI Problems Y Clotting Disorder Y Osteoporosis/Osteopenia Y Reflux/GERD Y High Cholesterol Y Heart Disease Y Spine Problems Y Psychiatric/Mental Health Condition Y Headaches Y Obstructive Sleep Apnea Y Neurological Problems Y Gynecological HistoryNo gynecological history recorded. Obstetrics History GPAL:G 0 P 0 0 0 0 Immunizations Vaccine Type Date Status Note Provider Nam e and Address Organization Details Recorded Time Influenza, split virus, quadrivalent, PF 1 completed Lux [place] 04/04/2022 14:32:16 COVID-19 vaccine, vector-nr, rS-Ad26, PF, 0.5 mL 1 completed Lux [place], [place] - [place] [facility] & [place] 04/04/2022 14:32:16 Pneumococcal conjugate PCV20, polysaccharide [id number] conjugate, adjuvant, PF 2 completed JAMAL De Leon - LPNT [facility] & [place] 04/04/2022 14:32:16 COVID-19, mRNA, LNP-S, PF, 30 mcg/0.3 mL dose, marito-sucrose 2 completed Lux quezada [place] - [place] [facility] & [place] 04/04/2022 14:32:16 Past Encounters Encounter ID Performer Location Encounter Start Date Encounter Closed Date Diagnosis/Indication Diagnosis SNOMED-CT Code Diagnosis ICD10 Code Diagnosis Note [id number] Darren Duncan PA-C [facility] [address] 07/22/2024 11:37:53 07/22/2024 12:29:14 Left sided abdominal pain 168540057 R10.9 Chronic id iopathic constipation 68968824 K59.04 Chronic pancreatitis 235 783143 K86.1 Disorder of rectum 19869 04 N81.6 Health Concerns Section Related Observation LastModified by Organization Detai ls LastModified Time None Recorded Concern Status LastModified by Organization Details LastModified Time None Recorded Payers Encounter Date Sequence Insurance Name Policy Number Policy Gallardo Covered Member ID Gallardo Member ID Guarantor Name 07/22/2024 1 [employer] (MEDICARE REPLACEMENT/A DVANTAGE - PPO) Rox Whitfield [id number] Rox Whitfield Notes Date Note Type Note Provider Name and Address Organization Details Recorded Time 07/22/2024 text/html CURRENT (07/22/24 ): Ms. Whitfield [...] once every few days. Darren Duncan PA-C [address], [place], [address], [facility] [place] 07/22/2024 21:10:42 OBGyn Episode No OBEpisode recorded.
[2024-09-17 09:15] LABS: Microscopic, Urine URINE MICROSCOPIC (MICROSCOPIC)
[2024-09-17 09:20] LABS: Bilirubin,Urine Negative (Negative); Blood, Urine Negative (Negative); Color,Urine YELLOW (Yellow); Glucose,Urine (UA) Negative (Negative); Ketones,Urine Negative (Negative); Leukocyte Esterase,Urine Negative (Negative); Nitrate,Urine POSITIVE (Negative); PH,Urine 7.5 (5.0-8.5); Protein,Urine Negative (Negative); Specific Gravity, Urine 1.015 (1.005-1.030); Urobilinogen,Urine 0.2 EU/dl (0.2)
[2024-09-17 09:30] LABS: Appearance,Urine Slightly Cloudy (Clear)
--- NOTE | 2024-09-17 09:39 | CT_ITS ---
FINAL REPORT TECHNIQUE: After the administration of intravenous contrast, axial images were obtained through the abdomen and pelvis by computed tomography. This study was performed with technique to keep radiation doses as low as reasonably achievable, (ALARA). Individualized dose reduction techniques using automated exposure control or adjustment of the MA and/or KV according to the patient's size were employed. CLINICAL HISTORY: Suprapubic abdominal tenderness, worsening chronic COMPARISON: 04/09/2024 FINDINGS: Abdomen: There is mild scarring at the left lung base. Multiple small enhancing liver lesions are seen measuring up to 1 cm in greatest dimension, predominantly in the right hepatic lobe which are stable from prior exam. Gallbladder is surgically absent. There is calcification at the splenic hilum which may be due to splenic artery aneurysm measuring 7 mm. There is calcification of the pancreatic head consistent with chronic pancreatitis. Pancreatic cyst seen on prior exam is no longer identified. 1.5 cm left adrenal nodule is stable. Pelvis: There is a rudimentary appendix. Urinary bladder is unremarkable. There is no adenopathy or free fluid. IMPRESSION: Chronic pancreatitis. Resolution of previously seen pancreatic cyst. Stable liver lesions of uncertain etiology. These are stable from prior exam, favor benign. Peliosis not excluded. 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 Reviewed, Interpreted and Dictated by Suman Hernandez MD Transcribed by Alyson Hernandez Authenticated and [facility]
[2024-09-17 09:47] LABS: Lactate Venous 1.7 mmol/L (0.4-2.0); VBG Base Excess 0.8 mmol/L (-2.4-2.3); VBG HCO3 26.1 mmol/L (23-30); VBG Oxygen Saturation 60.4 % (50-70); VBG PCO2 45.7 mmol/L (35-51); VBG PH 7.37 mmol/L (7.31-7.41); VBG PO2 33.1 mmol/L (28-40); VBG Total CO2 27.5 mmol/L (23-27)
[2024-09-17 09:47] LABS: Basophils % 0.7 % (0.1-2.0); Eosinophils # 0.1 Kmm3 (0.0-0.4); Hematocrit 35.4 % (37.0-47.0); Hemoglobin 11.7 g/dL (12.2-16.2); Immature Granulocytes # 0.01 10^3uL; Immature Granulocytes % 0.2 %; Lymphocytes # 1.4 K/mm3 (0.7-4.5); Lymphocytes % 24.7 % (10-50); Mean Corpuscular HGB Conc 33.1 g/dL (31.8-35.4); Mean Corpuscular Hemoglobin 30.8 pg (27.0-31.2); Mean Corpuscular Volume 93.2 fl (81-99); Mean Platelet Volume 9.4 fl (7.4-10.4); Monocytes # 0.3 K/mm3 (0.1-1.0); Monocytes % 5.8 % (1.7-9.3); Neutrophils % 67.6 % (37.0-80.0); Nucleated Red Blood Cells # 0 10^3/uL; Nucleated Red Blood Cells % 0 %; Platelet Count 277 K/mm3 (142-424); Red Cell Distribution Width 13.4 % (11.5-17.5); Red Cell Distribution Width-SD 45.9 fL; White Blood Count 5.8 K/mm3 (4.8-10.8)
[2024-09-17 10:00] LABS: Alanine Aminotransferase 20 U/L (12-78); Albumin Level 4.9 g/dl (3.5-5.0); Albumin/Globulin Ratio 1.4 (1.1-1.8); Alkaline Phosphatase 58 U/L (38-126); Anion Gap 9.8 mEq/L (5-15); Aspartate Amino Transferase 37 U/L (14-36); Bilirubin,Total 0.6 mg/dl (0.2-1.3); Blood Urea Nitrogen 14 mg/dl (7-17); Carbon Dioxide 29 mmol/L (22.0-30.0); Chloride 104 mmol/L (98-107); Creatinine Clearance Estimated 56 mL/min (50-200); Estimated Glomerular Filt Rate 81 ml/min (>60); GFR (African American) 98 ML/MIN (>60); Globulin 3.4 g/dL (1.3-3.2); Glucose 127 mg/dl (74-100); Lipase 29 U/L (23-300); Potassium 3.8 mmoL/L (3.5-5.1); Sodium 139 mmol/L (136-145); Total Protein,Serum 8.3 g/dl (6.3-8.2)
[2024-09-17 10:23] LABS: Bacteria,Urine 2+ /lpf
--- NOTE | 2024-09-17 10:37 | PC.NURSE ---
Took patient to the bathroom to void
[2024-09-17] MEDS: SODIUM CHLORIDE 0.9% 10ML SYR (RAD ONLY) 10 ML IV (11:15)
[2024-09-17] MEDS: IOPAMIDOL-370 (76%);100ML BOTTLE 75 ML IV (11:15)
[2024-09-17] MEDS: OXYCODONE 5MG IMMEDIATE RELEASE TABLET 10 MG PO (11:28)
--- NOTE | 2024-09-17 12:55 | PC.NURSE ---
Pt c/o cramping in her right calf. Assisted patient to a standing position by bedside to relieve the pain. After improvement, Pt was assisted back in bed with rails up and call light within reach. Bed is in lowest position
--- NOTE | 2024-09-23 11:01 | PC.NURSE ---
URINE CULTURE DISCUSSED WITH DR RILEY, NO NEW ORDERS AT THIS TIME
--- NOTE | 2024-10-18 09:00 | PC.NURSE ---
Urine culture results reviewed by Dr. Tsang. No new orders received.
== END 2024-09-17 14:00 | disposition home or self-care (01) ==
PROVIDERS: Emergency Provider Student in an Organized Health Care Education/Training Program; PCP Family Medicine
DX: R10.30 Lower abdominal pain, unspecified (principal); R10.819 Abdominal tenderness, unspecified site; N39.0 Urinary tract infection, site not specified; I10 Essential (primary) hypertension
CPT/HCPCS: 74177; 80053; 81001; 82803; 83690; 85025; 87077; 87086; 87088; 99285; Q9967

== ENCOUNTER 2024-10-14 11:25 | Outpatient (CLI) | payer MEDICARE, SELFPAY ==
--- OUTSIDE RECORDS SUMMARY | 2011-05-21 20:00 | XMS_ITS | Continuity of Care Document ---
Author Organization [facility] Address [address] [place] [address] Phone Care Team Providers Care Feller Buncher Operator Name Role Phone No Information Unavailable Unavailable Advance Directives Directive Yes / No Effective Date File Name No Information Encounters Encounter Description Practice Location Reason(s) For Visit Diagnoses Date Provider Providers Copied on Encounter [facility], [address] [place] [address], [place], [address], [place] tel:[phone] No Location No Information No Information Family History Family Member Type Diagnosis Age At Onset No Information Payers Payer name Insurance type Covered democrat ID Authoriza tion(s) No Information Social History Type Description Quantity Date Captured Comments Sex Female Smoking Status No Information Chief Complaint And Reason For Visit No Information Reason For Referral Reason For Referral No Information History Of Present Illness Encounter Date Complaint History Of Prese nt Illness No Information Functional Status Date Functional Assessmen t No Information Instructions Date Instruction Additional Infor mation No Information Assessments Type Assessment Date No Information Patient Care Teams Name Effective Dates (start - stop) Status Members No Information
--- OUTSIDE RECORDS SUMMARY | 2015-12-13 10:52 | XMS_ITS | Continuity of Care Document ---
Author Organization [facility] Address [address] [place] [phone] Phone Care Team Providers Care Rotogravure Press Operator Name Role Phone Natty CASTILLO, Gentry Unavailable [...] as directed. - Active 09/15/15 & 09/29/15 [id number] RxID: [id number] Durezol 0.05 % eye drops Use BID as directed. May sub Lotemax Gel 0.5%, 5 ml. Use QID as directed. May sub Prednisolone Acetate 1%, 10 ml. Use QID as directed. - Active 09/15/15 & 09/29/15 [id number] Ocuflox 0.3 % eye drops Use QID as directed. - Active 6 & 09/29/15 [id number] gabapentin 600 mg tablet take 1 tablet [...] [place], LASER POSTOP FOLLOW-[facility] verified w/pt or re TOBACCO NON-USER OPHTHALMIC BIOMETRY Advance Directives Directive Yes / No Effective Date File Name No Information Encounters Encounter Description Practice Location Reason(s) For Visit Diagnoses Date Provider Providers Copied on Encounter [facility], [address] [place] [address], [address] [place] [address], [phone] [facility] [place] No Information 6 Natty Rinaldi. [address] [place] [address], [address] [place] [address] , . tel:[phone] [facility], [address] [place] [address], [id number], [phone] [facility] No Information 6 Natty Rinaldi. [address] [place] [address], [id number] , . tel:[phone] Referring Provider: Mohsen Maria, [address] [place] [address], [id number] . tel:[phone] [facility], [address] [place] [address], [id number], tel:[phone] [facility] [place] Cataract eval (chief complaint) Combined Cat OD 6 Giovani Finn. [address] [place] [address], [id number] , . [phone] Referring Provider: Mohsen Maria, [address] [place] [address], [id number] . tel:[phone] [facility], [address] [place] [address], [id number], tel:[phone] [facility] No Information 6 Nattyjayant Rinaldi. [address] [place] [address], [id number] , . tel:[phone] Referring Provider: Gentry Travis, [address] [place] [address], [id number] . tel:[phone] Mohsen [facility] [place] [facility], [address] [place] [address], [id number], tel:[phone] [facility] No Information 6 Natty Rinaldi. [address] [place] [address], [id number] , . tel:[phone] Referring Provider: Mohsen Maria, [address] [place] [address], [id number] . tel:[phone] Mohsen Ravena [facility] [place] [facility], [address] [place] [address], [id number], tel:[phone] [facility] [place] decreased vision (chief complaint) Combined Cat OS 6 Giovani Briseno. [address] [place] [address], [id number] , . tel:[phone] Referring Provider: Mohsen Maria, [address] [place] [address], [id number] . tel:[phone] Mohsen Delgado [facility] [place] [facility], [address] [place] [address], [id number], [phone] [facility] Blurred vision (chief complaint) Combined Cat OUCombined Cat OS 6 Natty Rinaldi. [address] [place] [address], [id number] , . tel:[phone] Referring Provider: Mohsen Maria, [address] [place] [address], [address] . tel:[phone] Mohsen Delgado [facility] [place] [facility], [address] [place] [address], [id number], tel:[phone] [facility] No Information 6 Natty Rinaldi. [address] [place] [address], [id number] , [place]. tel:[phone] Referring Provider: Gentry Travis, [address] [place] [address], [address] . tel:[phone] Family History Family Member Type Diagnosis Age At Onset Sister Problem (finding) Cancer, unknown Mother Problem (finding) diabetes melli tus in first degree relative Immunizations Vaccine Date Status Comments Zoster administered Source: Other P rovider Pneumo (2 yrs or older)(PPV) administered Source: Other Provider Payers Payer name Insurance type Covered constitution party ID Authoriza tion(s) Medicare [place] [id number] Social History Type Description Quantity Date Captured [...] instructions. Call with any questions or concerns.Scribe: [id number]/H25.811/COMB CAT COD/IOL STD W/AK LASER TARGET PLANO [...] IOL. Call with any questions and concerns. [id number]/H25.812/COMB CAT COS/IOL STD w/AK LASER TARGET PLANO [...] some astigmatism. Related to Combined Cat OU Follow up - For surgery Related to Combined Cat OS Impression/Plan - Ca taracts account for the patient's complaints. Discussed all risks, benefits, procedures and recovery. Patient understands changing glasses will not improve vision. Patient desires to have surgery, recommend phacoemulsification with intraocular lens. 89573/H25.812/COMB CATCOS/IOLSTD +/- [place] LASERTARGET PLANO OUTOPICAL/VISCOATIOL MASTER DONE, PENTACAM NEEDEDPOKaroline MOSS,[id number]: BB PERF CORNEAL SCAR ODCOD 46992/H25.811-If you choose the standard implant and have your astigmatism fixed you will have improved distance vision and will need readers.-If you choose the Standard implant you will need chronic manager glasses if you do not have your astigmatism fixed. Related to Combined Cat OS Assessments Type Assessment Date No Information Patient Care Teams Name Effective Dates (start - stop) Status Members No Information
--- OUTSIDE RECORDS SUMMARY | 2024-10-15 10:56 | XMS_ITS | Patient Health Record ---
Author Organization [facility] [address] [place] [address] Care Team Providers Care Mechanical Manager Name Role Phone NAUN OLIVARES Unavailable [phone] Allergies Allergen (clinical drug ingredient) Drug/Non Drug Allergy documented on EMR Reaction Allergy Type Onset Date Status codeine Codeine Sulfate Unknown Drug Allergy A ctive acetaminophen Tylenol Unknown Drug Allergy Act medina cefaclor Cefaclor Unknown Drug Allergy Active Reason For Referral No Information Medications Medication SIG (Take, Route, Fr equency, Duration) Notes Start Date End Date Status Synthroid 75 MCG 1 tablet on an empty stomach in the morning Oral Active ALPRAZolam 1 MG 1 tablet Oral three times a day (tid) Active Omeprazole 40 mg 1 capsule Orally Onc e a day 30 min before a meal for 30 day(s) Active Lopid 600 MG 1 tablet Orally Twic e a day for 90 days 10/05/2017 Active Lactulose 10 GM/15ML 30 cc Orally three times a day (tid) for 30 day(s) 10/05/2017 Active DULoxetine HCl 20 mg 1 capsule Oral daily Active Problems Problem Type SNOMED Code ICD Code Onset Dates Problem Status W/U Status Risk Notes Problem 727763604 Fatty liver (K76.0) Active confirmed Problem 68134540 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 (496) 10/05/2017 PROTHROMBIN TIME-INR ([facility] Test Code: 8 847) 10/05/2017 Liver Fibrosis, FibroTest-ActiTest Panel (41283) 10/05/2017 Insurance Providers Payer Name Payer Address Payer Phone Subscriber Number Group Number Insured Name Patient Relationship to Insured Coverage Start Date Coverage End Date [facility] [address] [address] [place] [address] [id number] Rox Whitfield Self - patient is the insured 8 Medical (General) History Medical History History ICD Code Hypothyroidism depression pancreatitis Surgical History Surgery Date(Month/Year) cholecystectomy hysterectomy thyroid
--- OUTSIDE RECORDS SUMMARY | 2024-10-15 10:57 | XMS_ITS | Clinical Summary ---
Author Organization Healthcare Address [address] [place] [address] Care Team Providers Care Organizational Psychologist Name Role Phone Darrell Lane MD Primary Care Provider [phone] Social History Tobacco Use Types Packs/Day Years Used Date Smoking Tobacco: Never Assessed Comments Unknown Sex and Gender Information Value Date Recorded Sex Assigned at Not on file Legal Sex Female 12:33 PM EDT Gender Identity Not on file Sexual Orientation Not on file Plan of Treatment Upcoming Encounters Date Type Department Care Team (Late st Contact Info) Description 02/11/2025 8:20 AM EDT Consult [facility] [address] [place] [address] Yissel Preciado, ADMINISTRATIVE OFFICE MANAGER, DNP [address] [place] [address] Health Maintenance Due Date Last Done Comments [facility]-Bone Density Scan 1948 [facility]-Depression Screening 1948 [facility]-Infant/Child/Adol SDOH Screenings 1948 [facility]- SDOH Screenings 1966 [facility]-Adult SDOH Screenings 1966 [facility]-DTaP,Tdap,and Td Vaccines (1 - Tdap) 08/01/1967 [facility]-Pneumococcal Vaccine: 50+ Years (1 of 1 - PCV) 1998 11/26/2021 [facility]-Zoster Vaccines (1 of 2) 07/31/199801/2024, 09/03/2023 [facility]-RSV Vaccine: 60+ Years or (1 - 1-dose 75+ series) 08/01/2023 [id number] Vaccine (1 - 2023- season) 2024 11/26/2021, 08/30/2020 [facility]-Influenza Vaccine (Season Ended) 2025 02/14/2021 HPV Vaccines Aged Out No longer eligi ble based on patient's age to complete this topic [facility]-HIB Vaccines Aged Out No longer e ligible based on patient's age to complete this topic [facility]-Hepatitis A Vaccines Aged Out No longer eligible based on patient's age to complete this topic [facility]-IPV Vaccines Aged Out No longer e ligible based on patient's age to complete this topic [facility]-Rotavirus Vaccines Aged Out No lo nger eligible based on patient's age to complete this topic Insurance [facility] MEDICARE Care Teams Organizational Psychologist Relationship Specialty Start Date End Date Darrell Lane MD [address] [place] [address] PCP - General 10/15/24
--- OUTSIDE RECORDS SUMMARY | 2024-10-15 10:57 | XMS_ITS | Continuity of Care Document ---
Author Organization [place] - [facility] Address [address] [place] [address] Care Team Providers Care Rn Intake Name Role Phone MIRZA MASON Primary Care Provider [phone] Assessment No assessment recorded. Plan of Treatment Reminders Order Date Submit Date Provider Last Modified By Organization Details Last Modified Time Details Appointments None record ed. Lab None record ed. Referral None record ed. Procedures None record ed. Surgeries None record ed. Imaging None record ed. Medication Orders None record ed. Patient TargetsNo targets recorded. Patient Instructions Encounter Date Encounter Id Patient Instructions Last Modified By Organization Details Last Modified Time 08/29/2024 [id number] The member is cu rrently located in [place]. Pre-CallReview Readings Pre-call review started at 2024-08-29 14:34 EDT Glucometer Readings: Glucose 7-day fasting average: 106, non-fasting average: undefined Glucose 30-day fasting average: 113, non-fasting average: undefined Review Notes Most recent nurse notes were reviewed. Most recent provider notes were reviewed. Clinical Topics Based on the assessment of the member's readings, the member's care plan was updated. Notes: Current fasting blood glucose levels on track with little change since previous visit. Member has no postprandial reading data available since previous visit. Based on the assessment of the member's past encounters, the member's care plan was updated. Notes: Previous blood glucose levels within target goal range. Member coached on diet and exercise. Member notified of next [place] visit. Call InitiationConnection Connected: The member answered our calls Recording Call The member was notified and acknowledged that the call is being recorded for quality and training purposes. Identity Confirmation The member s identity was confirmed using name and date of . Location Confirmation The member is currently located in [place]. The member is willing and able to complete the call. Clinical ReviewMember Readings Notes: Reviewed current blood glucose updates with member and commended her for maintaining healthy levels. Member reports she received a text from [employer] stating that she had not obtained her glucose readings in several days however, reports she has been obtaining readings daily. Members readings were reviewed with the member Member Health Updates Member reported no allergy and/or medication changes Clinical Goals Goal: Fasting glucose less than 130 mg/DL Status: On Track Current Value: 113 Goal: Non-fasting glucose less than 180 mg/DL Status: Not Started Current Value: Clinical Coaching The member was coached on the following topics: Device reading frequency/timing Member attempted to be walked through troubleshooting however, device completely and needs to be charged prior to troubleshooting. Member reports device will not stay charged long as well as not transmitting readings. Normally, a simple reboot can fix this issue therefore, will ask one of the other TNs to contact member back later in the day to perform a reboot with member. If this does not correct this issue, will troubleshoot further at next visit. Next StepsReview Action Items Action items were reviewed with the member: Current fasting blood glucose levels within target goal range. Attempted troubleshooting of device with member however device completely . Will ask an alternate nurse to provide call back to member later in the day, once charged, to assist her with reboot of device. Confirm Next Appointments Confirmed the next [place] appointment with the member on 2024-09-12 14:00 EDT. Post-Call DocumentationPerformed By Aury Alcala Time spent 18 minutes. [email or web address] Not available 08/29/2024 14:52:40 Reason for Referral None Reported. Problems Name Problem SNOMED Code Status Onset Date Resolution Date Notes Provider Name and Address Organization Details Recorded Time Type 2 diabetes mellitus 04532626 Active 2022 ANGELICA LINARES null, [place] - [facility] 3 10:32:52 Essential hypertension 25594138 Active 2022 ANGELICA LINARES null, [place] - [facility] 3 10:32:49 Osteoporosis 71356147 Active 2022 Kassandra Weston null, [place] - [facility] 3 13:23:41 Osteoarthritis 959359148 Active 2022 Kassandra Weston null, [place] - [facility] 3 13:23:50 Spinal stenosis 69068535 Active 2022 Kassandra Weston null, [place] - [facility] 3 13:24:00 Diabetes mellitus 83567600 Active 2022 ANGELICA LINARES null, [place] - [facility] 3 15:35:53 Anxiety 54060605 Active 2024 Garfield Quinonez NP [address] , [place], [address], [place] - [facility] 5 09:13:57 Pulmonary emphysema 03275025 Active 2024 Garfield Quinonez NP [address] , [place], [address], [place] - [facility] 5 09:14:23 Coronary arterioscleros is 97076953 Active 2024 Garfield Quinonez NP [address] , [place], [address], [place] - [facility] 5 09:16:09 Atrial fibrillation 52425386 Active 2024 Garfield Quinonez NP [address] , [place], [address], [place] [facility] 5 09:16:19 Depressive disorder 36612054 Active 2024 Garfield Quinonez NP [address] , [place], [address], [place] [facility] 5 09:16:44 Hyperlipidemia 15860896 Active 2024 Garfield Quinonez NP [address] , [place], [address], [place] - [facility] 5 09:17:01 Postoperative hypothyroidism 13995395 Active 2024 Garfield Quinonez NP [address] , [place], [address], [facility] 5 09:17:48 History of cerebrovascula r accident 314904901 Active 2024 Garfield Quinonez NP [address] , [place], [address], [facility] 5 09:19:05 Problem Notes None recorded. Procedures Surgical History Date Name Laterality Status Provider Name and Address Organization Details Recorded Time Thyroidectomy completed [facility] 03/13/2023 10:13:31 Gallbladder Surgery completed [facility] 03/13/2023 10:13:58 Hysterectomy completed [facility] 03/13/2023 10:14:03 Appendectomy completed [facility] 03/13/2023 10:14:08 bilateral cataract extraction completed Garfield Quinonez NP [address], [place], [address], [facility] 10/08/2024 09:19:37 Imaging Results None recorded. Procedure Notes None recorded. Medical Equipment None Reported. Allergies Allergen ID Allergen Name Allergen Category Reaction Reaction Severity Criticality Documentation Date Start Date Code Code System Note Provider Name and Address Organization Details Recorded Time Ceclor medicatio n Not available Not available Not available 03/13/202324365 5 RxNorm Burke More [facility], [facility] 3 10:13:01 codeine medicatio n Not available Not available Not available 03/13/2023 2670 RxNorm Burke More null, [facility] 3 10:13:06 Medications Name Sig Start Date Stop Date Status Note LastModified by Organization Details LastModified Time cyclobenz aprine 10 mg tablet TAKE 1 TABLET BY MOUTH THREE TIMES DAILY 03/22 completed Pt reports she can't take generics Not Available Not Available Not Available metformin 500 mg tablet Take 1 tablet every day by oral route. active Not Available Not Available No t Available trazodone 50 mg tablet TAKE 1 TABLET BY MOUTH EVERY DAY AT BEDTIME NEEDED 03/13 completed Not Available Not Available Not Available Phenergan 12.5 mg tablet Take 1 tablet 4 times a day by oral route. active Not Available Not Available No t Available Carafate 1 gram tablet Take 1 tablet every day by oral route. active Not Available Not Available No t Available atorvasta tin 10 mg tablet Take 1 tablet every day by oral route at bedtime. active Not Available Not Available No t Available hydrocodo ne 5 mg-acetam inophen 325 mg tablet TAKE 1 TABLET BY MOUTH DAILY 03/13 completed Not Available Not Available Not Available prednison e 20 mg tablet TAKE 1 TABLET BY MOUTH DAILY FOR 4 DAYS 03/13 completed Not Available Not Available Not Available niacin ER 500 mg tablet,ex tended release 24 hr TAKE 1 TABLET BY MOUTH WITH FOOD ONCE DAILY 03/22 completed Not Available Not Available Not Available clopidogr el 75 mg tablet TAKE 1 TABLET BY MOUTH EVERY DAY active Not Available Not Available No t Available ciproflox acin 250 mg tablet TAKE 1 TABLET BY MOUTH TWICE DAILY FOR 7 DAYS 03/13 completed Not Available Not Available Not Available ciproflox acin 500 mg tablet TAKE 1 TABLET BY MOUTH TWICE DAILY FOR 7 DAYS 03/13 completed Not Available Not Available Not Available sulfameth oxazole 800 mg-trimet hoprim 160 mg tablet TAKE 1 TABLET BY MOUTH TWICE DAILY FOR 7 DAYS 03/13 completed Not Available Not Available Not Available omeprazol e 40 mg capsule,d elayed release TAKE 1 CAPSULE BY MOUTH ONCE DAILY active Not Available Not Available No t Available FiberCon 625 mg tablet Take 2 tablets every day by oral route. active Not Available Not Available No t Available alprazola m 0.5 mg tablet TAKE 1 TABLET BY MOUTH THREE TIMES DAILY NEEDED FOR ANXIETY active Not Available Not Available No t Available propranol ol 10 mg tablet TAKE 1 TABLET BY MOUTH TWICE DAILY 03/13 completed Not Available Not Available Not Available hydrocodo ne 7.5 mg-acetam inophen 325 mg tablet TAKE 1 TABLET BY MOUTH EVERY 6 HOURS NEEDED FOR PAIN FOR 14 DAYS 03/13 completed Not Available Not Available Not Available conjugate d estrogens 0.625 mg/gram vaginal cream Insert 0.5 applicat orsful every day by vaginal route. active Not Available Not Available No t Available Synthroid 75 mcg tablet TAKE 1 TABLET BY MOUTH ONCE DAILY IN THE MORNING ON AN EMPTY STOMACH active Not Available Not Available No t Available gabapenti n 300 mg capsule TAKE 1 CAPSULE BY MOUTH THREE TIMES DAILY 03/13 completed Not Available Not Available Not Available hydroxyzi ne HCl 25 mg tablet TAKE 1 TABLET BY MOUTH TWICE DAILY NEEDED FOR ANXIETY 03/13 completed Not Available Not Available Not Available prednison e 5 mg tablets in a dose pack TAKE BY MOUTH DIRECTED ON INSIDE OF PACKAGE 03/13 completed Not Available Not Available Not Available estradiol 0.01% (0.1 mg/gram) vaginal cream Insert by vaginal route. 08/15 completed Not Available Not Available Not Available hydroxyzi ne pamoate 25 mg capsule TAKE 1 CAPSULE BY MOUTH ONCE DAILY AT BEDTIME NEEDED 03/13 completed Not Available Not Available Not Available nitrofura ntoin monohydra te/macroc rystals 100 mg capsule TAKE 1 CAPSULE BY MOUTH TWICE DAILY FOR 5 DAYS 03/13 completed Not Available Not Available Not Available fenofibra te nanocryst allized 145 mg tablet TAKE 1 TABLET BY MOUTH ONCE DAILY 03/13 completed Not Available Not Available Not Available Probiotic 1 qd active Not Available Not Dotty ilable Not Available magnesium 400 mg (as magnesium oxide) capsule Take 2 capsules every day by oral route. active Not Available Not Available No t Available Linzess 290 mcg capsule TAKE 1 CAPSULE BY MOUTH EVERY DAY 30 MINUTES BEFORE FIRST MEAL OF THE DAY ON AN EMPTY STOMACH active Not Available Not Available No t Available Rybelsus 3 mg tablet TAKE 1 TABLET BY MOUTH EVERY DAY 30 MINUTES BEFORE FIRST FOOD OR BEVERAGE OR MEDICINE OF THE DAY 06/06 completed Not Available Not Available Not Available Vitals None Recorded Social History Question Answer Notes LastModified by Organizat ion Details LastModified Time Tobacco Smoking Status Current Some Day Smoker Burke Derik null, [place] - [facility] 03/13/2023 10:13:25 What Is Your Level Of Caffeine Consumption? Moderate [email or web address] Information not available 03/13/2023 How Much Tobacco Do You Smoke? 0.5 PPD [email or web address] Information not available 10/08/2024 Sex: Unknown Functional Status Question Answer Note LastModified by Organizat ion Details LastModified Time Do you use any illicit or recreational drugs? No [email or web address] Information not available 03/13/2023 Do you or have you ever used any other forms of tobacco or nicotine? No [email or web address] Information not available 03/13/2023 What is your level of alcohol consumption? None [email or web address] Information not available 03/13/2023 Mental Status None recorded. Family History Nothing Reported. Medical History Condition Response Anxiety Disorder Y Diabetes Y Coronary Artery Disease Y Other Y Obesity N Vision or Eye Problems Y Arthritis Y Hyperthyroidism N Congestive Heart Failure (CHF) N Cancer N Stroke Y COPD Y Asthma N Hypothyroidism Y Depression Y Sleep Apnea N High Cholesterol Y Neuropathy N Hypertension Y Kidney Disease N Gynecological HistoryNo gynecological history recorded. Obstetrics History GPAL:G 0 P 0 0 0 0 Past Encounters Encounter ID Performer Location Encounter Start Date Encounter Closed Date Diagnosis/Indication Diagnosis SNOMED-CT Code Diagnosis ICD10 Code Diagnosis Note [id number] [facility] [address] [place] [address] 08/01/2024 14:35:03 08/01/2024 14:39:26 Type 2 diabetes mellitus 52042986 E11.65 Type 2 diabetes mellitus [id number] Garfield Quinonez NP [facility] [address] [place] [address] 08/15/2024 14:26:22 08/15/2024 14:42:23 Type 2 diabetes mellitus 67020396 E11.65 Type 2 diabetes mellitus [id number] Garfield Quinonez NP [facility] [address] [place] [address] 08/29/2024 14:34:14 08/29/2024 14:52:41 Diabetes mellitus 20931679 E11.9 Diabetes mellitus [id number] Garfield Quinonez NP [facility] [address] [place] [address] 08/29/2024 16:25:25 08/29/2024 16:44:57 Diabetes mellitus 96279921 E11.9 Diabetes mellitus Type 2 serafin betes mellitus 52646226 E11.65 Type 2 diabetes mellitus Essential hypertension 92376161 I10 Essential hypertensi on Goals Section Goal Description Progress Status Start Date LastModified by Organization Details LastModified Time Diabetes Diet Maintain a diabetes diet as recommended by your care team Cassie active 024 Valerie Rizo Information not available 06/04/2023 22:35:30 Blood Glucose Maintains fsting blood glucose within target range of less than 150 achieved active 024 Myesha Matute Information not available 02/29/2024 18:24:27 Health Concerns Section Related Observation LastModified by Organization Detai ls LastModified Time None Recorded Concern Status LastModified by Organization Details LastModified Time None Recorded Payers Encounter Date Sequence Insurance Name Policy Number Policy Gallardo Covered Member ID Gallardo Member ID Guarantor Name 08/29/2024 1 [employer] (MEDICARE REPLACEMENT/A DVANTAGE - PPO) Rox Whitfield [id number] Rox Whitfield OBGyn Episode No OBEpisode recorded.
--- OUTSIDE RECORDS SUMMARY | 2024-10-15 10:57 | XMS_ITS | Continuity of Care Document ---
Author Organization [place] - [place] [facility] [place], [facility] Address [address] [facility] [address] [place] [address] Care Team Providers Care Continuous Crusher Operator Name Role Phone RADHA BARKLEY Primary Care Provider [phone] Assessment Encounter Date Assessment Date Assessment LastModified [...] change her GI symptoms. f/u 3 months. [email or web address] Not available 09/02/2024 21:54:52 Plan of Treatment [...] 20 mg capsule,d elayed release 2024 025 [facility] #[id number], [address] [address] [place], [id number], 09/01/2024 15:51:47 Patient TargetsNo targets recorded. Patient InstructionsNo instructions recorded. Reason for Referral None Reported. Problems Name Problem SNOMED Code Status Onset Date Resolution Date Notes Provider Name and Address Organization Details Recorded Time Left sided abdominal pain 666325732 Active 2023 Darren Duncan PA-C [address], [place], [address] , [place] - [facility] - [facility] & [place] 4 15:29:23 Disorder of rectum 3314522 Active 2024 Darren Duncan PA-C [address], [place], [address] , [place] [facility] & [place] 5 12:14:59 Upper abdominal pain 16533641 Active 2024 Darren Duncan PA-C [address], [place], [address] , [place] - [facility] - [facility] & [place] 5 15:49:45 Burning epigastric pain 80063894 Active 2024 Darren Duncan PA-C [address], [place], [address] , [place] - [facility] - [facility] & [place] 5 17:11:13 Disorder of pancreas 2066663 Active 2024 Darren Duncan PA-C [address] , [place], [address] , [place] [facility] - [facility] & [place] 5 17:04:58 Vitamin D deficiency 83808776 Active Lux Ward null, [place] [facility] - [facility] & [place] 2 14:26:26 Senile osteoporos is 19010925 Active Lux Sylvia null, [place] [facility] & [place] 2 14:26:26 Chronic idiopathic constipati on 70250391 Active Lux Ward null, [place] [facility] & [place] 2 14:26:26 Dyslipidem ia 059384806 Active Lux Ward null, [place] - [facility] & [place] 2 14:26:26 Mood disorder 24732355 Active Lux Ward null, [place] [facility] [place] 2 14:26:26 Smoker 43229079 Active Lux Ward null, [place] [facility] [facility] [place] 2 14:26:26 Paresthesi a 76197042 Active Lux Ward null, [place] & [place] 2 14:26:26 History of polyp of colon 061851093 Active Lux Ward [place] [facility] [place] 2 14:26:27 Insomnia 260014868 Active Lux Ward [place] [facility] [place] 2 14:26:27 Chronic pancreatit is 155553822 Active Lux Ward null[place] & [place] 2 14:26:27 Nausea 968473467 Active Lux Ward null[place] [facility] [facility] [place] 2 14:26:27 Gastroesop hageal reflux disease 231438931 Active Darren Duncan PA-C [address] [facility], [place], [address] , [place] [facility] [place] [facility] [place] 5 15:38:17 Type 2 diabetes mellitus without complicati on 678797720 Active Lux Ward [place] [facility] [facility] [place] 2 14:26:27 Heterozygo us Factor V Leiden mutation 530761919 Active Lux Ward null[place] [facility] [facility] [place] 2 14:26:27 Cerebrovas cular accident 924963412 Active Lux Ward null[place] & [place] 2 14:26:27 Abdominal aortic atheroscle rosis 578650466 Active Lux Ward [place] [facility] [place] 2 14:26:27 Acid reflux 267031836 Active Lux Ward null[place] [facility] [facility] [place] 2 14:26:27 Hypothyroi dism 99571349 Active Lux Ward null[place] [facility] [place] 2 14:26:27 Abdominal pain 45180730 Active Lux Ward null, [place] [facility] & [place] 2 14:26:27 Constipati on 26997359 Active Lux Ward [place] [facility] [place] 2 14:26:27 Urinary incontinen ce 528729715 Active Lux Ward null, [place] [facility] [facility] [place] 2 14:26:27 Chronic mood disorder 4788914323489 08 Active 2022 Radha Goldberg MD [address] [facility], [place], [address] , [place] [facility] [place] [facility] [place] 3 13:33:16 Anxiety 39372474 Active 2022 Radha Goldberg MD [address] , [facility] [address] , [place] [facility] [facility] [place] 3 13:33:24 Lesion of liver 732354216 Active 2022 Darren Duncan PA-C [address] , [place], [address] , [place] [facility] [place] [facility] [place] 3 15:11:32 Left upper quadrant pain 202245972 Active 2022 Darren Duncan PA-C [address], [place], [address] , [place] [facility] [place] [facility] [place] 3 15:11:39 Abdominal distension , gaseous 422236488 Active 2022 Darren Duncan PA-C [address], [place], [address] , [place] [facility] [facility] [place] 3 15:11:51 Irritable bowel syndrome characteri zed by constipati on 272653635 Active 2022 Darren Duncan PA-C [address], [place], [address] , [facility] & [place] 5 15:52:29 Exocrine pancreatic insufficie [facility] 02490359 Active 2022 Darren Duncan PA-C [address], [place], [address] , [facility] & [place] 3 15:30:22 Problem Notes None recorded. Procedures Surgical History Date Name Laterality Status Provider Name and Address Organization Details Recorded Time Hysterectomy completed Lux BERRY [facility] & [place] 04/04/2022 14:31:13 Gallbladder Surgery completed Lux BERRY [facility] & [place] 04/04/2022 14:31:18 Appendectomy completed Lux BERRY [facility] & [place] 04/04/2022 14:31:23 Thyroidectomy completed Lux BERRY [facility] & [place] 04/04/2022 14:31:28 Imaging Results None recorded. Procedure Notes None recorded. Medical Equipment None Reported. Allergies Allergen ID Allergen Name Allergen Category Reaction Reaction Severity Criticality Documentation Date Start Date Code Code System Note Provider Name and Address Organization Details Recorded Time 43991 Ceclor medicatio n Not available Not available Not available 03/10/2022 03600 5 [facility] [place] 2 11:14:09 77883 codeine medicatio n Not available Not available Not available 04/04/2022 2670 RxNorm JAMAL De Leon [facility] & [place] 2 14:26:17 Medications Name Sig Start Date [...] 1 CAPSULE BY MOUTH TWICE DAILY FOR 7 DAYS [...] Updated DateTime 5 170.18 cm 25.6 kg/m2 26790.3 5 g 97.4 [degF] 80 /min 75 /min 98 % 98 % 106 mm[Hg] 69 mm[Hg] Maite Chan [facility] & [place] 5 14:52:06 Social History Question Answer Notes LastModified by [employer] Details LastModified Time Tobacco Smoking Status Current Every Day Smoker Lux Ward [facility] & [place] 04/04/2022 14:30:16 How Much Tobacco Do You Smoke? 0.25 PPD Information not available 04/04/2022 How Many Years Have You Smoked Tobacco? 60 Information not available 04/04/2022 Sex: Unknown Functional Status Question Answer Note LastModified by Xl[employer] Details LastModified Time Do you use any [...] None Y Arthritis Y Back Problems Y Stroke [...] completed Lux quezada, [place] [facility] [place] [facility] [place] 04/04/2022 14:32:16 COVID-19 vaccine, vector-nr, rS-Ad26, PF, 0.5 mL 1 completed Lux quezada, [place] [facility] [facility] [place] 04/04/2022 14:32:16 Pneumococcal conjugate PCV20, polysaccharide [id number] conjugate, adjuvant, PF 2 completed Lux quezada, [place] [facility] [place] [facility] [place] 04/04/2022 14:32:16 COVID-19, mRNA, LNP-S, PF, 30 mcg/0.3 mL dose, marito-sucrose 2 completed Lux Ward null, [place] [facility] [place] [facility] [place] 04/04/2022 14:32:16 Past Encounters Encounter ID Performer Location Encounter Start Date Encounter Closed Date Diagnosis/Indication Diagnosis SNOMED-CT Code Diagnosis ICD10 Code Diagnosis Note [id number] Darren Duncan PA-C [facility] [address] [facility] [address] [place] [address] 09/01/2024 14:42:37 09/01/2024 16:11:17 Disorder of rectum 5626538 N81.6 Left sided abdominal pain 770552678 R10.9 Chronic pancreatitis 235 015959 K86.1 Upper abdominal pain 831 19781 R10.10 Irritable bowel syndrome characterized by constipation 144914780 K58.1 Health Concerns Section Related Observation LastModified by Organization Detai ls LastModified Time None Recorded Concern Status LastModified by Organization Details LastModified Time None Recorded Payers Encounter Date Sequence Insurance Name Policy Number Policy Gallardo Covered Member ID Gallardo Member ID Guarantor Name 09/01/2024 1 [employer] (MEDICARE REPLACEMENT/A DVANTAGE - PPO) Rox Whitfield [id number] Rox Whitfield Notes Date Note Type Note [...] distension in the LLQ. Darren Duncan PA-C [address], [place], [address], [facility] - [place] [facility] [place] 09/02/2024 21:55:38 OBGyn Episode No OBEpisode recorded.
--- OUTSIDE RECORDS SUMMARY | 2024-10-15 10:58 | XMS_ITS | Continuity of Care Document ---
Author Organization [place] - [facility], [facility] Schedule Address [address] [place] [address] Care Team Providers Care Legal Cashier Name Role Phone CARMINA MASONHEN Primary Care Provider Assessment No assessment recorded. Plan of Treatment [...] Modified By Organization Details Last Modified Time 09/01/2024 [id number] Pre-CallGustavo chandler Pre-call review started at 2024-09-01 15:45 EDT Glucometer Readings: Glucose 7-day fasting average: 120, non-fasting average: undefined Glucose 30-day fasting average: 112, non-fasting average: undefined Review Notes Most recent nurse notes were reviewed. Most recent provider notes were reviewed. Clinical TopicsAsync ReviewNo call was needed.Care Message The member was sent the following care message via SMS after reviewing their chart: Edgardo Gramajo, this is Nurse Smith with [facility]. I've reviewed your chart. I've updated your care plan to go over ways we can help you reach your goals. Your next scheduled appt is on 09/12/2024 2:00-3:00 PM EDT. Post-Call DocumentationPerformed By Sarah Houser Time spent 6 minutes. Additional Details Member sent smsEdgardo Gramajo, yareli is Nurse Sarah with [facility]. I've reviewed your chart. I've updated your care plan to go over ways we can help you reach your goals. Your next scheduled appt is on 09/12/2024 2:00-3:00 PM EDT.HI this is Sarah], a nurse with [facility]! Since your last visit, your readings have been on track. It s very important to make sure you check at least once per day and continue your medications. We will connect at your next nurse visit.May is Mental Health Awareness Month an important reminder that your emotional well-being is part of your overall health. Living with diabetes or high blood pressure can be a lot to manage and may increase the risk of depression and anxiety Both conditions share risk factors like stress, poor diet, and low activity impacting both body. and mind. This May, focus on you: Seek support Develop healthy coping skills Prioritize sleep & self-care Stay consistent with nurse visits. Your Care Team at [facility] is here for your [id number] Not available 09/01/2024 15:50:55 Reason for Referral None Reported. Problems Name Problem SNOMED Code Status Onset Date Resolution Date Notes Provider Name and Address Organization Details Recorded Time Type 2 diabetes mellitus 79190478 Active 2022 ANGELICA DOMINGUEZ SECORY null, [place] - [facility] 3 10:32:52 Essential hypertension 92229176 Active 2022 ANGELICA DOMINGUEZ SECORY null, [place] - [facility] 3 10:32:49 Osteoporosis 57162589 Active 2022 Kassandra Weston null, [place] - [facility] 3 13:23:41 Osteoarthritis 166758675 Active 2022 Kassandra Weston null, [place] [facility] 3 13:23:50 Spinal stenosis 46289493 Active 2022 Kassandra Weston null, [place] - [facility] 3 13:24:00 Diabetes mellitus 50666093 Active 2022 ANGELICA DOMINGUEZ SECORY null, [place] - [facility] 3 15:35:53 Anxiety 48827766 Active 2024 Garfield Quinonez NP [address] , [place], [address] , [place] - [facility] 5 09:13:57 Pulmonary emphysema 60051110 Active 2024 Garfield Quinonez NP [address] , [place], [address], [place] [facility] 09:14:23 Coronary arterioscleros is 47786702 Active 2024 Garfield Quinonez NP [address] , [place], [address], [place] [facility] 5 09:16:09 Atrial fibrillation 45251663 Active 2024 Garfield Quinonez NP [address] , [place], [address], [place] [facility] 5 09:16:19 Depressive disorder 12497962 Active 2024 Garfield Quinonez NP [address] , [place], [address], [place] [facility] 09:16:44 Hyperlipidemia 26569953 Active 2024 Garfield Quinonez NP [address] , [place], [address], [place] [facility] 5 09:17:01 Postoperative hypothyroidism 11646049 Active 2024 Garfield Quinonez NP [address] , [place], [address], [place] [facility] 5 09:17:48 History of cerebrovascula r accident 894002930 Active 2024 Garfield Quinonez NP [address] , [place], [address], [place] [facility] 5 09:19:05 Problem Notes None recorded. Procedures Surgical History Date Name Laterality Status Provider Name and Address Organization Details Recorded Time Thyroidectomy completed Burke Angelaers [place] - [facility] 03/13/2023 10:13:31 Gallbladder Surgery completed Burke Derik [place] - [facility] 03/13/2023 10:13:58 Hysterectomy completed Burkeelgin More [facility] 03/13/2023 10:14:03 Appendectomy completed Burke More [facility] 03/13/2023 10:14:08 bilateral cataract extraction completed Garfield Quinonez NP [address], [place], [address], [facility] 10/08/2024 09:19:37 Imaging Results None recorded. Procedure Notes None recorded. Medical Equipment None Reported. Allergies Allergen ID Allergen Name Allergen Category Reaction Reaction Severity Criticality Documentation Date Start Date Code Code System Note Provider Name and Address Organization Details Recorded Time Ceclor medicatio n Not available Not available Not available 03/13/202301387 5 RxNorm Burke More [facility] 3 10:13:01 codeine medicatio n Not available Not available Not available 03/13/2023 2670 RxNorm Burke More [facility] 3 10:13:06 Medications Name Sig Start Date [...] Social History Question Answer Notes LastModified by [employer] Details LastModified Time Tobacco Smoking Status Current Some Day Smoker Burke More [facility] 03/13/2023 10:13:25 What Is Your Level Of Caffeine Consumption? Moderate [email or web address] Information not available 03/13/2023 How Much Tobacco Do You Smoke? 0.5 PPD [email or web address] Information not available 10/08/2024 Sex: Unknown Functional Status Question Answer Note LastModified by Organizat ion Details LastModified Time Do you use any illicit or recreational drugs? No [email or web address] Information not available 03/13/2023 Do you or have you ever used any other forms of tobacco or nicotine? No [email or web address] Information not available 03/13/2023 What is your level of alcohol consumption? None [email or web address] Information not available 03/13/2023 Mental Status None [...] SNOMED-CT Code Diagnosis ICD10 Code Diagnosis Note [id number] Garfield Quinonez NP [facility] [address] [place] [address] 08/01/2024 14:35:03 08/01/2024 14:39:26 Type 2 diabetes mellitus 55138025 E11.65 Type 2 diabetes mellitus 439903 Garfield Quinonez NP [facility] [address] [place] [address] 08/15/2024 14:26:22 08/15/2024 14:42:23 Type 2 diabetes mellitus 79371073 E11.65 Type 2 diabetes mellitus 816521 Garfield Quinonez NP [facility] [address] [place] [address] 08/29/2024 14:34:14 08/29/2024 14:52:41 Diabetes mellitus 86632703 E11.9 Diabetes mellitus 028179 Garfield Quinonez NP [facility] [address] [place] [address] 08/29/2024 16:25:25 08/29/2024 16:44:57 Diabetes mellitus 61511393 E11.9 Diabetes mellitus Type 2 serafin betes mellitus 42770803 E11.65 Type 2 diabetes mellitus Essential hypertension 30525395 I10 Essential hypertensi on 882063 Garfield Quinonez NP [facility] [address] [place] [address] 09/01/2024 15:45:13 09/01/2024 15:50:55 Diabetes mellitus 45047196 E11.9 Diabetes mellitus Goals Section Goal Description Progress Status Start Date LastModified by Organization Details LastModified Time Diabetes Diet Maintain a diabetes diet as recommended by your care team NoChange active Valerie Rizo Information not available 06/04/2023 22:35:30 [...] (MEDICARE REPLACEMENT/A DVANTAGE - PPO) Rox Whitfield [id number] Rox Whitfield OBGyn Episode No OBEpisode recorded.
--- OUTSIDE RECORDS SUMMARY | 2024-10-15 10:58 | XMS_ITS | Data Portability ---
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 Plan of Treatment Reminders Order Date Submit Date Provider Last Modified By Organization Details Last Modified Time Details Appointments None record ed. Lab None record ed. Referral None record ed. Procedures None record ed. Surgeries None record ed. Imaging None record ed. Medication Orders None record ed. Patient Targets Encounter Date Encounter Id Patient Goals Patient Target Last Modified By Organization Details Last Modified Time 10/08/2024 [id number] superintendent terminal goal of Blood Pressure 130/80 Not available Not available Not available [facility] goal of Hemoglobin A1C < 7% Not available Not available Not available [facility] goal of Glucose, Fasting < 130 Not available Not available Not available [facility] goal of Glucose, 2 Hour Postprandial < 180 Not available Not available Not available [facility] goal of LDL Direct < 70 mg/dL Not available Not available Not available 10/08/2024 [id number] Avoidance of hypoglycemia (any glucose <70)Glucose Test Frequency: QD Fasting [email or web address] Not available 10/08/2024 09:24:58 Patient Instructions Encounter Date Encounter Id Patient Instructions Last Modified By Organization Details Last Modified Time 09/01/2024 [id number] Pre-CallReanne marie chandler Pre-call review started at 2024-09-01 15:45 EDT Glucometer Readings: Glucose 7-day fasting average: 120, non-fasting average: undefined Glucose 30-day fasting average: 112, non-fasting average: undefined Review Notes Most recent nurse notes were reviewed. Most recent provider notes were reviewed. Clinical TopicsAsync ReviewNo call was needed.Care Message The member was sent the following care message via [email or web address] after reviewing their chart: yareli Liriano is Nurse Sarah with [facility]. I've reviewed your chart. I've updated your care plan to go over ways we can help you reach your goals. Your next scheduled appt is on 09/12/2024 2:00-3:00 PM EDT. Post-Call DocumentationPerformed By Sarah Houser Time spent 6 minutes. Additional Details Member sent Rosi Gramajo, this is Nurse Sarah with [facility]. I've reviewed your chart. I've updated your care plan to go over ways we can help you reach your goals. Your next scheduled appt is on 09/12/2024 2:00-3:00 PM EDT.HI this is Sarah], a nurse with [facility]! Since your last visit, your readings have [...] with nurse visits. Your Care Team at [facility] is here for your [email or web address] Not available 09/01/2024 15:50:55 09/12/2024 [id number] The member is cu rrently located in [place]. Pre-CallReview Readings Pre-call review started at 2024-09-12 14:30 EDT Glucometer Readings: Glucose 7-day fasting average: 113, non-fasting average: 125 Glucose 30-day fasting average: 113, non-fasting average: 125 Review Notes Most recent nurse notes were reviewed. Most recent provider notes were reviewed. Clinical TopicsCall InitiationConnection Connected: The member answered our calls Recording Call The member was notified and acknowledged that the call is being recorded for quality and training purposes. Identity Confirmation The member s identity was confirmed using name and date of . Location Confirmation The member is currently located in [place]. The member is willing and able to complete the call. Clinical ReviewMember Readings Members readings were reviewed with the member Member Health Updates Member reported allergy and/or medication changes Notes: Feeling weak since yesterday. Updated [place] with med change. Has had UTI sx for 11 months. Has appt with another specialist on 09/21/24. Has seen a urologist and they couldn't find anything wrong with her. Advised member to go to Urgent Care to see if she has acute UTI or to see what is going on. She agrees. Member Height and Weight Height: 5 ft 7 in Weight: 170 Clinical Goals Goal: Fasting glucose less than 130 mg/DL Status: On Track Current Value: 113 Goal: Non-fasting glucose less than 180 mg/DL Status: On Track Current Value: 125 Focus Area: Device Usage CoachingTargeted device usage coaching was shown because the member was not meeting device usage goals. Member's reason for not meeting device usage goals: Device setup or tech issues Was having WIFI issues. Clinical Coaching The member was coached on the following topics: Diet Following NCS diet, encouraged fluids. Drinks sugar free gatorade and water. Exercise Walks in her yard and in her home for exercise. Referrals Next provider appointment: SundayOct 08 9:00 - 10:00 AM EDT. Provider: Garfield Quinonez Refills The member needed a refill order Next StepsConfirm Next Appointments Confirmed the next [place] appointment with the member on 2024-09-26 14:00 EDT. Post-Call DocumentationPerformed By Anjelica Aiken Time spent 18 minutes. [email or web address] Not available 09/12/2024 14:48:16 09/26/2024 [id number] The member is cu [place]rently located in [place]. Pre-CallReview Readings Pre-call review started at 2024-09-26 14:24 EDT Glucometer Readings: Glucose 7-day fasting average: 103, non-fasting average: 115 Glucose 30-day fasting average: 112, non-fasting average: 123 Review Notes Most recent nurse notes were reviewed. Most recent provider notes were reviewed. Clinical TopicsCall InitiationConnection Connected: The member answered our calls Recording Call The member was notified and acknowledged that the call is being recorded for quality and training purposes. Identity Confirmation The member s identity was confirmed using name and date of . Location Confirmation The member is currently located in [place]. The member is willing and able to complete the call. Clinical ReviewMember Readings Members readings were reviewed with the member Member Health Updates Member reported allergy and/or medication changes Notes: Feeling better. Med changes added to [place]. Member Height and Weight Weight: 163 Clinical Goals Goal: Fasting glucose less than 130 mg/DL Status: On Track Current Value: 112 Goal: Non-fasting glucose less than 180 mg/DL Status: On Track Current Value: 123 Clinical Coaching The member was coached on the following topics: Diet Following NCS/low carb diet. Does like pasta, suggested she look for low carb pasta. Drinking lots of water daily, also drinks Pedialyte. Likes Boost and Ensure. Asked her to make sure it is sugar free or look for Glucerna. Exercise Walks for exercise 10 minutes after some meals. Referrals Next provider appointment: SundayOct 08 9:00 - 10:00 AM EDT. Provider: Garfield Quinonez Next StepsConfirm Next Appointments Confirmed the next [place] appointment with the member on 2024-10-10 14:00 EDT. Post-Call DocumentationPerformed By Anjelica Aiken Time spent 18 minutes. [email or web address] Not available 09/26/2024 14:42:17 09/30/2024 [id number] Pre-CallReview Kavon chandler Pre-call review started at 2024-09-30 11:58 EDT Glucometer Readings: Glucose 7-day fasting average: 107, non-fasting average: 101 Glucose 30-day fasting average: 112, non-fasting average: 118 Review Notes Most recent nurse notes were reviewed. Most recent provider notes were reviewed. Clinical TopicsAsync ReviewNo call was needed.Care Message The member was sent the following care message via SMS after reviewing their chart: Renny this is Anjelica, a nurse with [facility]! Since your last visit, your readings have been on track. It s very important to make sure you check at least once per day and continue your medications. We will connect at your next nurse visit. Summer heat is upon us so plan accordingly for outdoor activities! Be sure to stay hydrated and watch sugar & sodium in drinks like soda or sports drinks. Stay cool, check readings often, avoid midday heat, wear good shoes, and store meds safely. Eat light, fresh meals and stay active early or late. Stay well! Post-Call DocumentationPerformed By Anjelica Aiken Time spent 4 minutes. [email or web address] Not available 09/30/2024 12:00:39 10/08/2024 [id number] Ms. Whitfield is a(n ) 74 year old female who presents today for f/u re: BS monitoring. She denies any complaints. DMII meds reviewed and confirmed. Reviewed avg BS over the past 30 days. Relates she has been managing her condition through diet, exercise, and med mgmt. Encouraged her to continue daily monitoring of BS. No changes made to the current tx plan. Will f/u with her in 1 year or sooner if needed. She understands that if she wishes to schedule an appointment with me sooner that she should make her request known to the [place]. Does the member have the [facility] denis downloaded? No, member declined Next [place] appointment is confirmed on 10/24/2024 between 02:00 PM and 03:00 PM Eastern Time. Was there a need during this visit to complete a Member Service Request? No. If yes, provide a summary of the request. [email or web address] Not available 10/08/2024 09:28:47 Reason for Referral None Reported. Problems Name Problem SNOMED Code Status Onset Date Resolution Date Notes Provider Name and Address Organization Details Recorded Time Type 2 diabetes mellitus 96189767 Active 2022 ANGELICA DOMINGUEZ SECORY null, [place] - [facility] 10:32:52 Essential hypertension 51837088 Active 2022 ANGELICA DOMINGUEZ SECORY [place], [place] - [facility] 10:32:49 Osteoporosis 41118116 Active 2022 Kassandra Weston null, [place] - [facility] 13:23:41 Osteoarthritis 968038884 Active 2022 Kassandra Weston null, [place] - [facility] 13:23:50 Spinal stenosis 06824014 Active 2022 Kassandra Weston null, [place] - [facility] 13:24:00 Diabetes mellitus 33341872 Active 2022 ANGELICA DOMINGUEZ SECORY null, [place] - [facility] 15:35:53 Anxiety 03144822 Active 2024 Garfield Quinonez NP [address] , [place], [address], [place] - [facility] 5 09:13:57 Pulmonary emphysema 57185158 Active 2024 Garfield Quinonez NP [address] , [place], [address], [place] [facility] 09:14:23 Coronary arterioscleros is 91384796 Active 2024 Garfield Quinonez NP [address] , [place], [address], [place] [facility] 09:16:09 Atrial fibrillation 86447987 Active 2024 Garfield Quinonez NP [address] , [place], [address], [place] [facility] 09:16:19 Depressive disorder 93498220 Active 2024 Garfield Quinonez NP [address] , [place], [address], [place] [facility] 09:16:44 Hyperlipidemia 10592638 Active 2024 Garfield Quinonez NP [address] , [place], [address], [place] [facility] 5 09:17:01 Postoperative hypothyroidism 24105821 Active 2024 Garfield Quinonez NP [address] , [place], [address], [place] [facility] 5 09:17:48 History of cerebrovascula r accident 971980493 Active 2024 Garfield Quinonez NP [address] , [place], [address], [place] [facility] 09:19:05 Problem Notes None recorded. Procedures Surgical History Date Name Laterality Status Provider Name and Address Organization Details Recorded Time [facility] 10[facility]13:31 [facility] 10:13:58 [facility] 10:14:03 Appendectomy completed Burke More [facility] 03/13/2023 10:14:08 bilateral cataract extraction completed Garfield Quinonez, ERROL [address], [place], [address], [facility] 10/08/2024 09:19:37 Imaging Results None recorded. Procedure Notes None recorded. Medical Equipment None Reported. Allergies Allergen ID Allergen Name Allergen Category Reaction Reaction Severity Criticality Documentation Date Start Date Code Code System Note Provider Name and Address Organization Details Recorded Time Ceclor medicatio n Not available Not available Not available 03/13/2023 05692 5 [facility] 10:13:01 codeine medicatio n Not available Not available Not available 03/13/2023 2670 [facility] 10:13:06 Medications Name Sig Start Date [...] Not Available Not Available Not Available Vitals Date Recorded Body height Body mass index (BMI) Body weight Provider Name and Address Organization Details Last Updated DateTime 10/08/2024 160.02 cm 29.6 kg/m2 22937.93 g Garfield Quinonez, ERROL [address], [place], [address], [facility] 10/08/2024 09:12:56 Social History Question Answer Notes LastModified by mDialog Details LastModified Time Tobacco Smoking Status Current Some Day Smoker Burke quezada, [facility] 03/13/2023 10:13:25 What Is Your Level Of Caffeine Consumption? Moderate [email or web address] Information not available 03/13/2023 How Much Tobacco Do You Smoke? 0.5 PPD [email or web address] Information not available 10/08/2024 Sex: Unknown Functional Status Question Answer Note LastModified by mDialog Details LastModified Time Do you use any illicit or recreational drugs? No [email or web address] Information not available 03/13/2023 Do you or have you ever used any other forms of tobacco or nicotine? No [email or web address] Information not available 03/13/2023 What is your level of alcohol consumption? None [email or web address] Information not available 03/13/2023 Mental Status None recorded. Family History Nothing Reported. Medical History Condition Response Diabetes Y Anxiety Disorder Y Coronary Artery Disease Y Obesity N Other Y Vision or Eye Problems Y Arthritis Y Hyperthyroidism N Congestive Heart Failure (CHF) N Cancer N Stroke Y Asthma N COPD Y Depression Y Hypothyroidism Y Sleep Apnea N High Cholesterol Y Neuropathy N Hypertension Y Kidney Disease N Gynecological HistoryNo gynecological history recorded. Obstetrics History GPAL:G 0 P 0 0 0 0 Past Encounters Encounter ID Performer Location Encounter Start Date Encounter Closed Date Diagnosis/Indication Diagnosis SNOMED-CT Code Diagnosis ICD10 Code Diagnosis Note [id number] Char Rosales NP [facility] [address] [place] [address] 03/13/2023 10:08:48 03/13/2023 10:44:44 Type 2 diabetes mellitus 77347987 E11.65 Essential hypertension 54275794 I10 [id number] ERROL Hernandez[facility]ursin [facility] Schedule [address] [place] [address] 03/22/2023 13:09:28 03/22/2023 13:55:50 Diabetes mellitus 42748579 E11.9 [id number] ERROL Hernandez[facility] Schedule [address] [place] [address] 04/06/2023 16:03:28 04/12/2023 14:07:57 Diabetes mellitus 82010678 E11.9 [id number] ERROL [facility] Schedule [address] [place] [address] 06/04/2023 17:19:49 06/04/2023 17:37:56 Type 2 diabetes mellitus 82815720 E11.65 [id number] ERROL HOWE_Nursin g Schedule [address] [place] [address] 06/18/2023 15:36:21 06/18/2023 15:53:52 Type 2 diabetes mellitus 48963924 E11.65 [id number] ROCHELLE PINO NP [facility] Schedule [address] [place] [address] 06/26/2023 14:25:55 06/26/2023 14:49:00 Type 2 diabetes mellitus 40318148 E11.65 -Continue the following medication s as prescribed : Rybelsus, atorvastat in (for cholestero l)-Incorpo rate diet and exercise into daily routine.-C ontinue daily glucose readings.- Highlighte d importance of glucose reading technique. -Follow-up with nurse for RPM visits.-Se nt education materials on health snacks for diabetics. -Encourage d pt to eat 4-5 small meals per day with a focus on protein, vegetables /fruits, and high-fiber carbohydra te sources. [id number] ERROL HOWE_Nursin g Schedule [address] [place] [address] 07/16/2023 15:29:20 07/16/2023 15:47:24 Diabetes mellitus 96834436 E11.9 [id number] ERROL HOWE_Nursin g Schedule [address] [place] [address] 07/30/2023 15:35:00 07/30/2023 15:43:26 Diabetes mellitus 32291444 E11.9 [id number] ERROL HOWE_Nursin g Schedule [address] [place] [address] 08/14/2023 13:17:28 08/14/2023 13:25:01 [id number] ERROL HOWE_Nursin g Schedule [address] [place] [address] 08/31/2023 13:59:10 08/31/2023 14:16:34 [id number] ERROL HOWE_Nursin g Schedule [address] [place] [address] 10/12/2023 13:52:07 10/12/2023 14:06:29 [id number] ERROL HOWE[facility]ursin g Schedule [address] [place] [address] 10/26/2023 13:34:59 10/26/2023 13:49:01 Diabetes mellitus 28411553 E11.9 [id number] ERROL Wells_Nursin g Schedule [address] [place] [address] 11/09/2023 15:07:52 11/09/2023 15:21:23 Type 2 diabetes mellitus 52242474 E11.65 [id number] Garfield Quinonez NP [facility] Schedule [address] [place] [address] 11/23/2023 14:00:07 11/23/2023 14:04:24 Type 2 diabetes mellitus 73099402 E11.65 [id number] Garfield Quinonez NP [facility] Schedule [address] [place] [address] 12/21/2023 11:30:27 12/21/2023 11:36:39 Type 2 diabetes mellitus 56711669 E11.65 [id number] LOGAN COOPER NP [facility] Schedule [address] [place] [address] 02/15/2024 14:21:26 02/15/2024 14:29:13 Diabetes mellitus 27711623 E11.9 [id number] Garfield Quinonez NP [facility] Schedule [address] [place] [address] 02/29/2024 14:14:51 02/29/2024 14:24:57 Essential hypertension 81621088 I10 [id number] Garfield Quinonez NP [facility] Schedule [address] [place] [address] 03/14/2024 14:21:25 03/14/2024 14:35:03 Diabetes mellitus 79107430 E11.9 [id number] Garfield Quinonez NP [facility] Schedule [address] [place] [address] 03/28/2024 14:35:21 03/28/2024 14:51:24 Diabetes mellitus 67300385 E11.9 Diabetes mellitus Type 2 serafin betes mellitus 15114671 E11.65 Type 2 diabetes mellitus Essential hypertension 23511052 I10 Essential hypertensi on [id number] Garfield Quinonez NP [facility] Schedule [address] [place] [address] 04/11/2024 14:25:02 04/11/2024 14:30:26 Type 2 diabetes mellitus 75899870 E11.65 Type 2 diabetes mellitus [id number] Garfield Quinonez NP [facility] Schedule [address] [place] [address] 04/15/2024 15:09:24 04/15/2024 15:13:52 Diabetes mellitus 73083609 E11.9 Diabetes mellitus Type 2 serafin betes mellitus 47588852 E11.65 Type 2 diabetes mellitus Essential hypertension 28453369 I10 Essential hypertensi on [id number] Garfield Quinonez NP [facility] Schedule [address] [place] [address] 04/25/2024 14:18:17 04/25/2024 14:33:54 Type 2 diabetes mellitus 30828373 E11.65 Type 2 diabetes mellitus [id number] Garfield Quinonez NP [facility] [address] [place] [address] 05/09/2024 14:50:04 05/09/2024 15:06:31 Diabetes mellitus 00418167 E11.9 Diabetes mellitus [id number] Garfield Quinonez NP [facility] Schedule [address] [place] [address] 05/23/2024 14:11:17 05/23/2024 14:19:40 Type 2 diabetes mellitus 15087802 E11.65 Type 2 diabetes mellitus [id number] Garfield Quinonez NP [facility] Schedule [address] [place] [address] 06/06/2024 14:30:40 06/06/2024 14:55:25 Diabetes mellitus 50803186 E11.9 Diabetes mellitus Type 2 serafin betes mellitus 79759610 E11.65 Type 2 diabetes mellitus Essential hypertension 89463372 I10 Essential hypertensi on 135300 Garfield Quinonez NP [facility] [address] [place] [address] 06/20/2024 14:32:39 06/20/2024 14:47:15 Type 2 diabetes mellitus 05087473 E11.65 Type 2 diabetes mellitus [id number] Garfield Quinonez NP [facility] [address] [place] [address] 07/04/2024 14:16:09 07/04/2024 14:33:03 Type 2 diabetes mellitus 44370997 E11.65 Type 2 diabetes mellitus [id number] Garfield Quinonez NP [facility] Schedule [address] [place] [address] 07/18/2024 14:05:13 07/18/2024 14:10:56 Type 2 diabetes mellitus 19184496 E11.65 Type 2 diabetes mellitus [id number] Garfield Quinonez NP [facility] Schedule [address] [place] [address] 08/01/2024 14:35:03 08/01/2024 14:39:26 Type 2 diabetes mellitus 51604331 E11.65 Type 2 diabetes mellitus [id number] Garfield Quinonez NP [facility] Schedule [address] [place] [address] 08/15/2024 14:26:22 08/15/2024 14:42:23 Type 2 diabetes mellitus 30114266 E11.65 Type 2 diabetes mellitus [id number] Garfield Quinonez NP [facility] Schedule [address] [place] [address] 08/29/2024 14:34:14 08/29/2024 14:52:41 Diabetes mellitus 84694940 E11.9 Diabetes mellitus [id number] Garfield Quinonez NP [facility] [address] [place] [address] 08/29/2024 16:25:25 08/29/2024 16:44:57 Diabetes mellitus 20742338 E11.9 Diabetes mellitus Type 2 serafin betes mellitus 74040424 E11.65 Type 2 diabetes mellitus Essential hypertension 18450356 I10 Essential hypertensi on 385189 Garfield Quinonez NP [facility] [address] [place] [address] 09/01/2024 15:45:13 09/01/2024 15:50:55 Diabetes mellitus 16203685 E11.9 Diabetes mellitus [id number] Garfield Quinonez NP [facility] [address] [place] [address] 09/12/2024 14:30:22 09/12/2024 14:48:17 Type 2 diabetes mellitus 39489549 E11.65 Type 2 diabetes mellitus [id number] ERROL Wells_Nursin [facility] Schedule [address] [place] [address] 09/26/2024 14:24:11 09/26/2024 14:42:18 Type 2 diabetes mellitus 48935987 E11.65 Type 2 diabetes mellitus [id number] ERROL Wells_Nursin [facility] Schedule [address] [place] [address] 09/30/2024 11:58:12 09/30/2024 12:00:40 Type 2 diabetes mellitus 54414415 E11.65 Type 2 diabetes mellitus [id number] Garfield Quinonez NP [facility] Schedule [address] [place] [address] 10/08/2024 09:10:56 10/08/2024 09:29:13 Type 2 diabetes mellitus 82093178 E11.65 Diabetes Ongoing Care Plan -Continue RPM to ensure proper glucose control, gain insight into how diet affects glucose readings, and to avoid long-term adverse effects of uncontroll ed diabetes. - Frequency of Biomarker Readings: Once daily: fasting before meds/break fast- Additional testing and laboratory guidance: per PCP Nursing Care- Every 2 weeks visits- Telehealth Nurse to continue to monitor and adjust personaliz ed SMART goals and update goal statuses as appropriat e.- PCP/Specia list communicat ion plan: Nurses to fax readings: declined to: __ PCP; __ cardiologi st; __ endocrinol ogist, __ other: Provider Visit Frequency- Every 6-8 months while enrolled- As needed as concerns arise - Medication recommenda tions:X continue current regimen__ make these medication changes: - Statin Therapy: Patient currently on optimal statin therapy based on ASCVD risk.Addit ional support:Is member tagging readings? YES.Is member familiar with plate method? YES.Drinki ng at least 48-64 oz of water per day, if no fluid restrictio n? No, encouraged increased water intake and water's role in decreasing glucose. Goals Section Goal Description Progress Status Start Date LastModified by Organization Details LastModified Time Diabetes Diet Maintain a diabetes diet as recommended by your care team Cassie active 024 Valerie Rizo Information not available 06/04/2023 22:35:30 Blood Glucose Maintains fsting blood glucose within target range of less than 150 achieved active 024 Myesha Giovani Information not available 02/29/2024 18:24:27 Health Concerns Section Related Observation LastModified by Organization Detai ls LastModified Time None Recorded Concern Status LastModified by Organization Details LastModified Time None Recorded Advance Directives Directive None Recorded Payers Insurance Date Sequence Insurance Name Policy Number Policy Gallardo Covered Member ID Gallardo Member ID Guarantor Name 10/08/2024 1 [employer] (MEDICARE REPLACEMENT/ADVA NTAGE - PPO) Rox Whitfield [id number] Rox Whitfield 03/14/2024 1 [employer] [employer] [place]MEDICARE REPLACEMENT/ADVA NTAGE - HMO) [id number] Rox Whitfield [id number] Rox Whitfield Notes Date Note Type Note Provider Name and Address Organization Details Recorded Time 10/08/2024 text/html General - Patient name and verified: Yes - Disclosed that the call is being recorded: Yes - This visit was conducted via audio-only - The provider was ready and able to provide a video visit on a HIPAA-compliant video platform and the patient declined, because they were unable to connect to video - Is an approved medical decision maker speaking on behalf of the patient? N/A: Pt makes own decisions If yes, name and relationship of medical decision maker: - State patient is located in at time of call: [place] - Patient Location at time of visit: Home If location today is outside the state in [place] home address, has patient moved?N/AIf patient has moved, was address updated in [facility]?N/A Recent illnesses or hospitalizations: . Diet:Low Carb, Low Sugar. Patient is physically active. Has a PCP Yes last visit 09/2024 Statin therapy Yes Weight changes: No. Chronic diabetes, controlled stable. Checking glucose 1 times daily. Fasting glucose average 107 for the last 30 days. Non-fasting glucose average 118 for the last 30 days. Compliant with treatment plan. Treated with lifestyle and medication. Last A1C and date: 6.7 (07/2024) Source: patient. Response to current treatment regimen: appropriate. Eye doctor at least annually Yes last visit 2023 Diabetic foot exam annually Yes last completed 2023 no symptoms: - weight gain, - weight loss, - fatigue, - blurry vision, - neuropathy, - polyphagia, - polyuria, - polydipsia, - nighttime sweats, - hypoglycemic episodes, - wounds or ulcers. Garfield Quinonez NP [address], [place], [address], [facility] - [facility] 10/08/2024 09:28:49 OBGyn Episode No OBEpisode recorded.
--- OUTSIDE RECORDS SUMMARY | 2024-10-15 10:58 | XMS_ITS | Patient Health Record ---
Author Organization [facility] Billing Info Address [address] [place], [place] [address]g[place] [address] Care Team Providers Care Glost Kiln Placer Name Role Phone MARIA CBEE Primary Care Provider [phone] Allergies Allergen (clinical drug ingredient) Drug/Non Drug Allergy documented on EMR Reaction Allergy Type Onset Date Status cefaclor Cefaclor Unknown Drug Allergy Active codeine Codeine Unknown Drug Allergy Active Reason For Referral No Information Medications Medication SIG (Take, Route, Frequency, Duration) Notes Start Date End Date Status Prozac 40 MG 1 capsule in the mor vane Orally Once a day for mood. Active Synthroid 75 MCG 1 tablet Orally Once a day for 1 month Active Nabumetone 500 MG 1 tablet Orally Twic e a day prn pain. for 30 day(s) 08/03/2015 Active HydrOXYzine Pamoate 25 MG 1 cap(s) Orall y TID prn anxiety. for 30 day(s) 01/17/2016 Active BusPIRone HCl 15 MG 1 tablet Orally Twic e a day regularly. for 1 month 01/17/2016 Activ e Bactroban 2 % 1 application to aff ected area Externally Three times a day prn to irritated skin. for 1 month 01/13/2016 Active Social History Tobacco Use: Social History Observation Description Date Details (start date - stop date) Current Smoker NA - NA Tobacco Status: Question Answer Notes Patient is a current every day smoker Section Notes: no drug abuse. no drug abuse. no drug abuse. no drug abuse. no drug abuse. no drug abuse. no drug abuse. no drug abuse. no drug abuse. no drug abuse. no drug abuse. no drug abuse. no drug abuse. Problems Problem Type SNOMED Code ICD Code Onset Dates Problem Status W/U Status Risk Notes Problem 345959412 Anxious depression (F41.8) Active confirmed Problem 798853600 Chronic pain disorder (G89.4) Active confirmed Problem 12533532 Osteoarthritis, chronic (M19.90) Active confirmed Problem 12028239 Hypothyroidism, iatrogenic (E03.2) Active confirmed Problem 647440694 Insomnia, unspecified type (G47.00) Active confirmed Plan Of Treatment Pending Test Test Name Order Date MAMMOGRAM; SCREENING, BILATERAL (25711) 06/17/2014 - BREAST RIO([facility]) 06/17/2014 Insurance Providers Payer Name Payer Address Payer Phone Subscriber Number Group Number Insured Name Patient Relationship to Insured Coverage Start Date Coverage End Date MEDICARE [place] PART B [address] [place], [place] [id number] [phone] [id number] Rox Whitfield Self - patient is the insured 9 Medical (General) History Medical History History ICD Code anxious depression hypothyroidism OA CTS R wrist chronic pain syndrome Surgical History Surgery Date(Month/Year) multiple eric with skin grafting 6 DORI - BSO for benign reasons cholecystectomy appendectomy thyroidectomy for goiter Hospitalization History Reason Date(Month/Year) surgeries, as above atypical chest pain/palpitations with ne gative stress testing 2013 Multiple eric to L arm and torso with s kin grafting 09-14-15
--- OUTSIDE RECORDS SUMMARY | 2024-10-15 10:58 | XMS_ITS | Patient Health Record ---
Author Organization [facility] Address [address] [place] [address] Support Name Relationship Address Phone MAY CROUCH Guarantor Unknown [phone] Reason For Referral No Information Plan Of Treatment No Information Insurance Providers Payer Name Payer Address Payer Phone Subscriber Number Group Number Insured Name Patient Relationship to Insured Coverage Start Date Coverage End Date [employer] [address] [address] [place] [id number] MAY CROUCH Self - patient is the insured
== END 2024-10-14 23:59 | disposition home or self-care (01) ==
LOC: LAB.DROPOF 10-15 10:52
PROVIDERS: PCP Student in an Organized Health Care Education/Training Program; Visit Provider Student in an Organized Health Care Education/Training Program
DX: N39.0 Urinary tract infection, site not specified (principal)
CPT/HCPCS: 87086

== ENCOUNTER 2024-10-19 14:36 | Emergency (ER) | payer MEDICARE, SELFPAY ==
--- OUTSIDE RECORDS SUMMARY | 2011-05-21 20:00 | XMS_ITS | Continuity of Care Document ---
Author Organization [facility] Address [address] [place] [address] Phone Care Team Providers Care Research Animal Facility Supervisor Name Role Phone No Information Unavailable Unavailable Advance Directives Directive Yes / No Effective Date File Name No Information Encounters Encounter Description Practice Location Reason(s) For Visit Diagnoses Date Provider Providers Copied on Encounter [facility], [address] [place] [address], [place], [address], [place] tel:[phone] No Location No Information No Information Family History Family Member Type Diagnosis Age At Onset No Information Payers Payer name Insurance type Covered green party ID Authoriza tion(s) No Information Social History [...]
--- OUTSIDE RECORDS SUMMARY | 2015-12-13 10:52 | XMS_ITS | Continuity of Care Document ---
Author Organization [facility] Address [address] [place] [address] Phone Care Team Providers Care Adoption Worker Name Role Phone Natty CASTILLO, Gentry Unavailable Unavailable Allergies, Adverse Reactions, Alerts Substance Reaction Status Criticality codeine gastro pain Active No Information cefaclor itching rash(moderate) Active No In formation Medications Medication Instructions Dosage Effective Dates (start - stop) Status Comments Prolensa 0.07 % eye drops Use QD as directed. May sub Ilevro 0.3%, 3 ml. Use QD as directed. - Active 09/15/15 & 09/29/15 [id number] RxID: [id number] Durezol 0.05 % eye drops Use BID as directed. May sub Lotemax Gel 0.5%, 5 ml. Use QID as directed. May sub Prednisolone Acetate 1%, 10 ml. Use QID as directed. - Active 09/15/15 & 09/29/15 [id number] Ocuflox 0.3 % eye drops Use QID as directed. - Active 6 & 09/29/15 [id number] gabapentin 600 mg tablet take 1 tablet by oral route 3 times every day 600 MG - Active clonazepam 1 mg tablet 1 tablet PRN - Active buspirone 10 mg tablet take 1 tablet by oral route 2 times every day 10 MG - Active Synthroid 75 mcg tablet take 1 tablet by oral route every day 75 MCG - Active Prozac 40 mg capsule take 1 capsule by oral route every day in the morning 40 MG - Active Procedures Procedure Date CATARACT SURG W/IOL, 1 STAGE AK, LASER POSTOP FOLLOW-UP VISIT OPHTHALMIC BIOMETRY CATARACT SURG W/IOL, 1 STAGE AK, LASER POSTOP FOLLOW-UP [facility]IS[facility] w/pt or re TOBACCO NON-USER OPHTHALMIC BIOMETRY Advance Directives Directive Yes / No Effective Date File Name No Information Encounters Encounter Description Practice Location Reason(s) For Visit Diagnoses Date Provider Providers [facility]ied [facility], [address] [place] [address], [address] [place] [address], [phone] [facility] [place] No Information 6 Natty Rinaldi. [address] [place] [address], [address] [place] [address] , . tel:[phone] [facility], [address] [place] [address], [id number], [phone] [facility] No Information 6 Natty Rinaldi. [address] [place] [address], [id number] , . tel:[phone] Referring Provider: Mohsen Maria, [address] [place] [address], [id number] . tel:[phone] [facility], [address] [place] [address], [id number], tel:[phone] [facility] [place] Cataract eval (chief complaint) Combined Cat OD 6 Giovani Finn. [address] [place] [address], [id number] , . [phone] Referring Provider: Mohsen Maria, [address] [place] [address], [id number] . tel:[phone] [facility], [address] [place] [address], [id number], tel:[phone] [facility] No Information 6 Nattyjayant Rinaldi. [address] [place] [address], [id number] , . tel:[phone] Referring Provider: Gentry Travis, [address] [place] [address], [id number] . tel:[phone] Mohsen [facility] [place] [facility], [address] [place] [address], [id number], tel:[phone] [facility] No Information 6 Natty Rinaldi. [address] [place] [address], [id number] , . tel:[phone] Referring Provider: Mohsen Maria, [address] [place] [address], [id number] . tel:[phone] Mohsen Cashion [facility] [place] [facility], [address] [place] [address], [id number], tel:[phone] [facility] [place] decreased vision (chief complaint) Combined Cat OS 6 Giovani Briseno. [address] [place] [address], [id number] , . tel:[phone] Referring Provider: Mohsen Maria, [address] [place] [address], [id number] . tel:[phone] Mohsen Delgado [facility] [place] [facility], [address] [place] [address], [id number], tel:[phone] [facility] Blurred vision (chief complaint) Combined Cat OUCombined Cat OS 6 Natty Rinaldi. [address] [place] [address], [id number] , . tel:[phone] Referring Provider: Mohsen Maria, [address] [place] [address], [id number] . tel:[phone] Mohsen Delgado [facility] [place] [facility], [address] [place] [address], [id number], tel:[phone] [facility] No Information 6 Natty Rinaldi. [address] [place] [address], [id number] , [place]. tel:[phone] Referring Provider: Gentry Travis, [address] [place] [address], [id number] . tel:[phone] Family History Family Member Type Diagnosis Age At Onset Sister Problem (finding) Cancer, unknown Mother Problem (finding) diabetes melli tus in first degree relative Immunizations Vaccine Date Status Comments Zoster administered Source: Other P rovider Pneumo (2 yrs or older)(PPV) administered Source: Other Provider Payers Payer name Insurance type Covered democrat ID Authoriza tion(s) [place] [id number] Social History Type Description Quantity Date Captured Comments Alcohol Use Details No Caffeine Use Details Unknown Tobacco Use Status Smoking Status Current every day smoker 2015 Sex Female Chief Complaint And Reason For Visit No Information Reason For Referral Reason For Referral No Information Plan Of Treatment Date Type Action Status Goal Tobacco cessation counseling completed Patient Education Cataracts: After Your V isit completed History Of Present Illness Encounter Date Complaint History Of Prese nt Illness Cataract eval Referred by Dr Lito terry for cat eval OD pt doesnt feel comfortable night driving due to glare, hard to see to read, and likes to sew and hasnt been able to thread a needle, OS doing good STD lens w/laser, SH decreased vision Near VA changes started 1 year ago, OU and has progressively gotten worse. Can't see to threasd needle or see to find numbers in phone book. Limits driving due to VA decrease & glare from headlights & sun. PT misjudging step, has fallen recently. JEREMY Blurred vision Blurred vision a t both distance and near OU. Trouble reading smaller print, unable to find numbers in telephone book. Difficulty driving in the daytime and at night due to vision unable to see road and signs clearly. Went to renew license and was unable to get it due to failing vision test. Headlights at night creat a bothersome glare OU. Symptoms have gradually gotten worse since last year. -wmmize Functional Status Date Functional Assessmen t No Information Instructions Date Instruction Additional Infor brant Impression/Plan - 2n d Eye:Patient ready to proceed with surgery; first eye healing well. Patient has no other questions. Recommend STD. Confirmed with patient target: plano. Follow drop instructions. Call with any questions or concerns.Scribe: [id number]/COMB CAT COD/IOL STD W/AK LASER TARGET PLANO OU TOPICAL/VISCOAT/ 2ND EYE SEE SW PO 8/9@120 w/JESKIE BG (POC 90/0 JESKIE BG) COLLECT $? DUR,O,PRO/ NOTES: BB PERF CORNEAL SCAR OD Related to Combined Cat OD 1 day post op w/Dr. Angelo Relat ed to Combined Cat OS Impression/Plan - Pa grettant is ready to proceed and has no other questions. Recommend IOL. Call with any questions and concerns. [id number]/H25.812/COMB CAT COS/IOL STD w/AK LASER TARGET PLANO OU TOPICAL/VISCOAT/1ST EYE SDS SEE SW /IOL MASTER AND PENT NEEDED /PO 8/2@1100 W/JESKIE IN BG (POC 90/0 JESKIE BG) COLLECT $? DUR,O,PRO/ NOTES: BB PERF CORNEAL SCAR OD/SG Related to Combined Cat OS Follow up - 1 day post op w/Dr. Angelo Related to Combined Cat OS For surgery Related to Combi chepe Cat OS Impression/Plan - -T he eye is like a camera they both have a lens that does the focusing. We are going to remove your natural lens and replace it with an implant that will do the focusing for you. We do the no needle, no stitch, no patch technique.There are no restrictions other than you cannot drive for 24 hours if you are sedated and don't rub the eye. You will have two decisions to make prior to your surgery. How do you want the cataract removed? What implant would fit your lifestyle.For 50 years it was done the traditional way with blades and the surgeons skill. Now we offer Laser Assisted cataract surgery. There are 5 distinct advantages of using the laser. It customizes the treatment for your specific eye. It is more precise than by hand. The laser will soften the cataract for easier removal with less inflammation of the cornea and may result in a quicker recovery time. It also will treat some astigmatism. Related to Combined Cat OU Impression/Plan - Ca taracts account for the patient's complaints. Discussed all risks, benefits, procedures and recovery. Patient understands changing glasses will not improve vision. Patient desires to have surgery, recommend phacoemulsification with intraocular lens. 37517/H25.812/COMB CATCOS/IOLSTD +/- [place] LASERTARGET PLANO OUTOPICAL/VISCOATIOL MASTER DONE, PENTACAM NEEDEDPOKaroline MOSS,[id number]: BB PERF CORNEAL SCAR ODCOD 04049/H25.811-If you choose the standard implant and have your astigmatism fixed you will have improved distance vision and will need readers.-If you choose the Standard implant you will need part time flexible clerk glasses if you do not have your astigmatism fixed. Related to Combined Cat OS Follow up - For surgery Related to Combined Cat OS Assessments Type Assessment Date No Information Patient Care Teams Name Effective Dates (start - stop) Status Members No Information
[2024-10-19] VITALS (8 sets, daily range): BP systolic 128–165; BP diastolic 68–88; PULSE 60–86; RESP 10–18; TEMP 36.8–36.9; O2SAT 94–98; BMI 28.3
--- NOTE | 2024-10-19 15:00 | CT_ITS ---
PROCEDURE INFORMATION: Exam: CT Abdomen And Pelvis With Contrast Exam date and time: 10/19/2024 3:44 PM Age: 74 years old Clinical indication: Abdominal pain; Additional info: Llq abdominal pain nausea TECHNIQUE: Imaging protocol: Computed tomography of the abdomen and pelvis with contrast. Radiation optimization: All CT scans at this facility use at least one of these dose optimization techniques: automated exposure control; mA and/or kV adjustment per patient size (includes targeted exams where dose is matched to clinical indication); or iterative reconstruction. Contrast material: ISOVUE; Contrast volume: 75 ml; Contrast route: IV; COMPARISON: CT ABDOMEN PELVIS W CON 09/17/2024 11:01 AM FINDINGS: Liver: No suspicious enhancing hepatic mass. Mild intrahepatic biliary ductal dilatation. Gallbladder and biliary ducts: Post cholecystectomy. Pancreas: Fatty atrophy of the pancreas. Calcifications in the expected location of the pancreatic head and uncinate process, can be seen in the setting of chronic pancreatitis. Spleen: Normal. No splenomegaly. Adrenal glands: There is a 1.1 x 1.5 cm high density nodule in the left adrenal gland, unchanged compared to multiple prior studies, including MRI 04/16/2024, where it demonstrates signal drop-out on [id number]-kr-spdwr imaging, most consistent with an adrenal adenoma. Kidneys and ureters: Normal. No hydronephrosis. Stomach and bowel: Few scattered colon diverticula, with subtle inflammatory changes surrounding the sigmoid colon within the left lower quadrant, consistent with acute uncomplicated diverticulitis (series 1001 image 38). No findings to suggest perforation or abscess. Appendix: No evidence of appendicitis. Intraperitoneal space: Unremarkable. No free air. No significant fluid collection. Vasculature: Aortic atherosclerosis. No abdominal aortic aneurysm. Lymph nodes: Unremarkable. No enlarged lymph nodes. Urinary bladder: Unremarkable as visualized. Reproductive: Unremarkable as visualized. Post hysterectomy. Bones/joints: Moderate multilevel degenerative disc disease of the lumbar spine. No acute fracture. Soft tissues: Unremarkable. IMPRESSION: 1. Few scattered colon diverticula, with subtle inflammatory changes surrounding the sigmoid colon within the left lower quadrant, consistent with acute uncomplicated diverticulitis. No findings to suggest perforation or abscess. 2. Fatty atrophy of the pancreas. Calcifications in the expected location of the pancreatic head and uncinate process, can be seen in the setting of chronic pancreatitis. 3. There is a 1.1 x 1.5 cm high density nodule in the left adrenal gland, unchanged compared to multiple prior studies, including MRI 04/16/2024, where it demonstrates signal drop-out on zpz-ln-lzixd imaging, most consistent with an adrenal adenoma.
--- OUTSIDE RECORDS SUMMARY | 2024-10-19 15:01 | XMS_ITS | Continuity of Care Document ---
Author Organization [place] [facility] Address [address] [place] [address] Care Team Providers Care Nutrition Program Instructor Name Role Phone MIRZA MASON Primary Care Provider [phone] Assessment No assessment recorded. Plan of Treatment [...] Modified By Organization Details Last Modified Time 09/26/2024 [id number] The member is cu [place]rently located in [place]. Pre-CallReview Readings Pre-call review started at 2024-09-26 [...] Confirmation The member is currently located in [place]. The member is willing and able to complete the call. Clinical ReviewMember Readings Members readings were reviewed with the member Member Health Updates Member reported allergy and/or medication changes Notes: Feeling better. Med changes added to Chan[place]. Member Height and Weight Weight: 163 Clinical [...] 18 minutes. [email or web address] Not available 09/26/2024 14:42:17 Reason for Referral None Reported. Problems Name Problem SNOMED Code Status Onset Date Resolution Date Notes Provider Name and Address Organization Details Recorded Time Type 2 diabetes mellitus 69282018 Active 2022 ANGELICA DOMINGUEZ SECORY null, [place] - [facility] 3 10:32:52 Essential hypertension 96015225 Active 2022 ANGELICA DOMINGUEZ SECORY null, [place] - [facility] 3 10:32:49 Osteoporosis 53829206 Active 2022 Kassandra Weston null, [place] - [facility] 3 13:23:41 Osteoarthritis 238455745 Active 2022 Kassandra Weston null, [place] - [facility] 3 13:23:50 Spinal stenosis 03263578 Active 2022 Kassandra Weston null, [place] - [facility] 3 13:24:00 Diabetes mellitus 06099241 Active 2022 ANGELICA DOMINGUEZ SECORY null, [place] - [facility] 3 15:35:53 Anxiety 74712157 Active 2024 Garfield Quinonez NP [address] , [place], [address], [place] - [facility] 5 09:13:57 Pulmonary emphysema 47193515 Active 2024 Garfield Quinonez NP [address] , [place], [address], [place] - [facility] 5 09:14:23 Coronary arterioscleros is 94784866 Active 2024 Garfield Quinonez NP [address] , [place], [address], [place] - [facility] 5 09:16:09 Atrial fibrillation 10783237 Active 2024 Garfield Quinonez NP [address] , [place], [address], [place] - [facility] 5 09:16:19 Depressive disorder 55242277 Active 2024 Garfield Quinonez NP [address] , [place], [address], [place] - [facility] 5 09:16:44 Hyperlipidemia 97373990 Active 2024 Garfield Quinonez NP [address] , [place], [address], [place] - [facility] 5 09:17:01 Postoperative hypothyroidism 37314737 Active 2024 Garfield Quinonez NP [address] , [place], [address], [place] - [facility] 5 09:17:48 History of cerebrovascula r accident 781141251 Active 2024 Garfield Quinonez NP [address] , [place], [address], [place] - [facility] 5 09:19:05 Problem Notes None recorded. Procedures Surgical History Date Name Laterality Status Provider Name and Address Organization Details Recorded Time Thyroidectomy completed [facility] - [facility] 03/13/2023 10:13:31 Gallbladder Surgery completed [facility] - [facility] 03/13/2023 10:13:58 Hysterectomy completed [facility] - [facility] 03/13/2023 10:14:03 Appendectomy completed [facility] 03/13/2023 10:14:08 bilateral cataract extraction completed Garfield Quinonez NP [address], [place], [address], [facility] 10/08/2024 09:19:37 Imaging Results None recorded. Procedure Notes None recorded. Medical Equipment None Reported. Allergies Allergen ID Allergen Name Allergen Category Reaction Reaction Severity Criticality Documentation Date Start Date Code Code System Note Provider Name and Address Organization Details Recorded Time Ceclor medicatio n Not available Not available Not available 03/13/202323638 5 RxNorm Burke More null, [facility] 3 10:13:01 codeine medicatio n Not available Not available Not available 03/13/[address] [facility], [facility] 3 10:13:06 Medications Name Sig Start [...] Smoking Status Current Some Day Smoker Burke Angela[place], [place] - [facility] 03/13/2023 10:13:25 What Is Your Level Of Caffeine Consumption? Moderate [email or web address] Information not available 03/13/2023 How Much Tobacco Do You Smoke? 0.5 PPD [email or web address] Information not available 10/08/2024 Sex: Unknown Functional Status Question Answer Note LastModified by Organizat ion Details LastModified Time Do you use any illicit or recreational drugs? No [email or web address] Information not available 03/13/2023 Do you or have you ever used any other forms of tobacco or nicotine? No [email or web address] Information not available 03/13/2023 What is your level of alcohol consumption? None [email or web address] Information not available 03/13/2023 Mental Status None recorded. Family History Nothing Reported. Medical History Condition Response Diabetes Y Anxiety Disorder Y Coronary Artery Disease Y Obesity N Other Y Vision or Eye Problems Y Arthritis Y Hyperthyroidism N Congestive Heart Failure (CHF) N Cancer N Stroke Y Asthma N COPD Y Hypothyroidism Y Depression Y Sleep Apnea N High Cholesterol Y Neuropathy N Hypertension Y Kidney Disease N Gynecological HistoryNo gynecological history recorded. Obstetrics History GPAL:G 0 P 0 0 0 0 Past Encounters Encounter ID Performer Location Encounter Start Date Encounter Closed Date Diagnosis/Indication Diagnosis SNOMED-CT Code Diagnosis ICD10 Code Diagnosis Note [id number] ERROL Wells_Lyndsey g Schedule [address] [place] [address] 08/29/2024 14:34:14 08/29/2024 14:52:41 Diabetes mellitus 82750865 E11.9 Diabetes mellitus 841655 Garfield Quinonez NP [facility] [address] [place] [address] 08/29/2024 16:25:25 08/29/2024 16:44:57 Diabetes mellitus 28471903 E11.9 Diabetes mellitus Type 2 serafin betes mellitus 00875221 E11.65 Type 2 diabetes mellitus Essential hypertension 10928202 I10 Essential hypertensi on 135206 Garfield Quinonez NP [facility] [address] [place] [address] 09/01/2024 15:45:13 09/01/2024 15:50:55 Diabetes mellitus 99486172 E11.9 Diabetes mellitus 773290 Garfield Quinonez NP [facility] [address] [place] [address] 09/12/2024 14:30:22 09/12/2024 14:48:17 Type 2 diabetes mellitus 58641591 E11.65 Type 2 diabetes mellitus [id number] Garfield Quinonez NP [facility] [address] [place] [address] 09/26/2024 14:24:11 09/26/2024 14:42:18 Type 2 diabetes mellitus 88102166 E11.65 Type 2 diabetes mellitus Goals Section Goal Description Progress Status Start Date LastModified by Organization Details LastModified Time Diabetes Diet Maintain a diabetes diet as recommended by your care team NoChange active 024 Valerie Rizo Information not available [...] Member ID Gallardo Member ID Guarantor Name 09/26/2024 1 [employer] (MEDICARE REPLACEMENT/A DVANTAGE - PPO) Rox Whitfield [id number] Rox Whitfield OBGyn Episode No OBEpisode recorded.
--- OUTSIDE RECORDS SUMMARY | 2024-10-19 15:01 | XMS_ITS | Continuity of Care Document ---
Author Organization [place] - [place] [facility] [place], [facility] Address [address] [facility] [address] [place] [address] Care Team Providers Care Merchandiser Retail Representative Name Role Phone RADHA BARKLEY Primary Care Provider [phone] Assessment Encounter Date Assessment Date Assessment LastModified [...] change her GI symptoms. f/u 3 months. [email or web address] Not available 09/02/2024 21:54:52 Plan of Treatment [...] 20 mg capsule,d elayed release 2024 025 [facility] #[id number], [address] [address] [place], [id number], 09/01/2024 15:51:47 Patient TargetsNo targets recorded. Patient InstructionsNo instructions recorded. Reason for Referral None Reported. Problems Name Problem SNOMED Code Status Onset Date Resolution Date Notes Provider Name and Address Organization Details Recorded Time Left sided abdominal pain 004756166 Active 2023 Darren Duncan PA-C [address], [place], [address] , [place] [facility] - [facility] & [place] 4 15:29:23 Disorder of rectum 9093373 Active 2024 Darren Duncan PA-C [address], [place], [address] , [place] - [facility] - [facility] & [place] 5 12:14:59 Upper abdominal pain 98996154 Active 2024 Darren Duncan PA-C [address], [place], [address] , [place] - [facility] - [facility] & [place] 5 15:49:45 Burning epigastric pain 51091228 Active 2024 Darren Duncan PA-C [address], [place], [address] , [place] - [facility] - [facility] & [place] 5 17:11:13 Disorder of pancreas 7106306 Active 2024 Darren Duncan PA-C [address] , [place], [address] , [place] - [facility] - [facility] & [place] 5 17:04:58 Vitamin D deficiency 66406786 Active Lux Ward null, [place] [facility] - [facility] & [place] 2 14:26:26 Senile osteoporos is 79452364 Active Lux Sylvia null, [place] - [facility] - [facility] & [place] 2 14:26:26 Chronic idiopathic constipati on 83205083 Active Lux Ward null, [place] - [facility] & [place] 2 14:26:26 Dyslipidem ia 652205159 Active Lux Ward null, [place] [facility] [facility] & [place] 2 14:26:26 Mood disorder 83980264 Active Lux Ward null, [place] - [place] 2 14:26:26 Smoker 04662475 Active Lux Ward null, [place] [facility] [place] 2 14:26:26 Paresthesi a 08741769 Active Lux Ward null, [place] & [place] 2 14:26:26 History of polyp of colon 768535873 Active Lux Ward null, [place] 2 14:26:27 Insomnia 817529069 Active Lux Ward null, [place] 2 14:26:27 Chronic pancreatit is 587897251 Active Lux Ward null, [place] & [place] 2 14:26:27 Nausea 524303591 Active Lux Ward null[place] [facility] [place] 2 14:26:27 Gastroesop hageal reflux disease 298144110 Active Darren Duncan PA-C [address] [facility], [place], [address] , [place] - [place] [facility] [place] 5 15:38:17 Type 2 diabetes mellitus without complicati on 887559509 Active Lux Ward null, [place] [facility] [place] 2 14:26:27 Heterozygo us Factor V Leiden mutation 403112733 Active Lux Ward null, [place] 2 14:26:27 Cerebrovas cular accident 493355370 Active Lux Ward null, [place] & [place] 2 14:26:27 Abdominal aortic atheroscle rosis 587113533 Active Lux Ward null[place] 2 14:26:27 Acid reflux 712605073 Active Lux Ward null, [place] 2 14:26:27 Hypothyroi dism 50333048 Active Lux Ward null, [place] 2 14:26:27 Abdominal pain 85682583 Active Lux Ward null, [place] - [facility] & [place] 2 14:26:27 Constipati on 49041605 Active Lux Ward null, [place] 2 14:26:27 Urinary incontinen ce 760477225 Active Lux Ward null, [place] 2 14:26:27 Chronic mood disorder 7167640271155 08 Active 2022 Radha Goldberg MD [address] [facility], [place], [address] , [place] - [place] & [place] 3 13:33:16 Anxiety 55540919 Active 2022 Radha Goldberg MD [address] , [facility] [address] , [place] [facility] [place] 3 13:33:24 Lesion of liver 034989308 Active 2022 Darren Duncan PA-C [address] , [place], [address] , [place] [facility] [place] 3 15:11:32 Left upper quadrant pain 939254255 Active 2022 Darren Duncan PA-C [address], [place], [address] , [place] [facility] [place] 3 15:11:39 Abdominal distension , gaseous 022795178 Active 2022 Darren Duncan PA-C [address], [place], [address] , [place] [facility] [place] 3 15:11:51 Irritable bowel syndrome characteri zed by constipati on 233608163 Active 2022 Darren Duncan PA-C [address], [place], [address] , [facility]AL [facility] & [place] 5 15:52:29 Exocrine pancreatic insufficie [facility] 27438639 Active 2022 Darren Duncan PA-C [address], [place], [address] , [place] [facility] & [place] 3 15:30:22 Problem Notes None recorded. Procedures Surgical History Date Name Laterality Status Provider Name and Address Organization Details Recorded Time Hysterectomy completed Lux BERRY [facility] & [place] 04/04/2022 14:31:13 Gallbladder Surgery completed Lux BERRY [facility] & [place] 04/04/2022 14:31:18 Appendectomy completed Lux BERRY [facility] & [place] 04/04/2022 14:31:23 Thyroidectomy completed Lux BERRY [facility] & [place] 04/04/2022 14:31:28 Imaging Results None recorded. Procedure Notes None recorded. Medical Equipment None Reported. Allergies Allergen ID Allergen Name Allergen Category Reaction Reaction Severity Criticality Documentation Date Start Date Code Code System Note Provider Name and Address Organization Details Recorded Time 65269 Ceclor medicatio n Not available Not available Not available 03/10/2022 57047 5 [facility] [place] 2 11:14:09 59147 codeine medicatio n Not available Not available Not available 04/04/2022 2670 RxNorm JAMAL De Leon [facility] & [place] 2 14:26:17 Medications [...] Updated DateTime 5 170.18 cm 25.6 kg/m2 45835.3 5 g 97.4 [degF] 80 /min 75 /min 98 % 98 % 106 mm[Hg] 69 mm[Hg] Maite Chan [facility] & [place] 5 14:52:06 Social History Question Answer Notes LastModified by [employer] Details LastModified Time Tobacco Smoking Status Current Every Day Smoker Lux Ward [facility] & [place] 04/04/2022 14:30:16 How Much Tobacco Do You Smoke? 0.25 PPD Information not available 04/04/2022 How Many Years Have You Smoked Tobacco? 60 Information not available 04/04/2022 Sex: Unknown Functional Status Question Answer Note LastModified by [employer] Details LastModified Time Do you use any [...] Condition Response None Y Thyroid Problems Y Lung Disease Y COPD Y GI Problems Y Clotting Disorder Y Osteoporosis/Osteopenia Y Spine Problems Y Obstructive Sleep Apnea Y Neurological Problems Y Diabetes Y Obesity Y Arthritis Y Back Problems Y Stroke Y Reflux/GERD Y High Cholesterol Y Psychiatric/Mental Health Condition Y Heart Disease Y Headaches Y Gynecological HistoryNo gynecological history recorded. Obstetrics History GPAL:G 0 P 0 0 0 0 Immunizations Vaccine Type Date Status Note Provider Nam e and Address Organization Details Recorded Time Influenza, split virus, quadrivalent, PF 1 completed Lux quezada, [place] - [place] - [place] & [place] 04/04/2022 14:32:16 COVID-19 vaccine, vector-nr, rS-Ad26, PF, 0.5 mL 1 completed Lux quezada, [place] & [place] 04/04/2022 14:32:16 Pneumococcal conjugate PCV20, polysaccharide DKA595 conjugate, adjuvant, PF 2 completed Lux quezada, [place] [facility] & [place] 04/04/2022 14:32:16 COVID-19, mRNA, LNP-S, PF, 30 mcg/0.3 mL dose, marito-sucrose 2 completed Lux Ward null, [place] & [place] 04/04/2022 14:32:16 Past Encounters Encounter ID Performer Location Encounter Start Date Encounter Closed Date Diagnosis/Indication Diagnosis SNOMED-CT Code Diagnosis ICD10 Code Diagnosis Note [id number] Darren Duncan PA-C [facility] [address] [facility] [address] [place] [address] 09/01/2024 14:42:37 09/01/2024 16:11:17 Disorder of rectum 0693424 N81.6 Left sided abdominal pain 683436908 R10.9 Chronic pancreatitis 235 917160 K86.1 Upper abdominal pain 831 05538 R10.10 Irritable bowel syndrome characterized by constipation 360463039 K58.1 Health Concerns Section Related Observation LastModified by Organization Detai ls LastModified Time None Recorded Concern Status LastModified by Organization Details LastModified Time None Recorded Payers Encounter Date Sequence Insurance Name Policy Number Policy Gallardo Covered Member ID Gallardo Member ID Guarantor Name 09/01/2024 1 [employer] (MEDICARE REPLACEMENT/A DVANTAGE - PPO) Rox Whitfield [id number] Rox Whitfield Notes Date Note Type Note [...] distension in the LLQ. Darren Duncan PA-C [address], [place], [address], [facility] - [place] - [place] [facility] [place] 09/02/2024 21:55:38 OBGyn Episode No OBEpisode recorded.
--- OUTSIDE RECORDS SUMMARY | 2024-10-19 15:01 | XMS_ITS | Continuity of Care Document ---
Author Organization [place] - [facility], [facility] Schedule Address [address] [place] [address] Care Team Providers Care Fryer Line Helper Name Role Phone MIRZA MASON Primary Care Provider [phone] Assessment No assessment recorded. Plan of Treatment [...] By Organization Details Last Modified Time 08/29/2024 [id number] The member is cu rrently located in [place]. Pre-CallReview Readings Pre-call review started at 2024-08-29 [...] diet and exercise. Member notified of next AL visit. Call InitiationConnection Connected: The member answered our calls Recording Call The member was notified and acknowledged that the call is being recorded for quality and training purposes. Identity Confirmation The member s identity was confirmed using name and date of . Location Confirmation The member is currently located in [place]. The member is willing and able to complete the call. Clinical ReviewMember Readings Notes: Reviewed current blood glucose updates with member and commended her for maintaining healthy levels. Member reports she received a text from [employer] stating that she had not obtained her [...] Details Recorded Time Type 2 diabetes mellitus 27640607 Active 2022 ANGELICA LINARES null, [place] - [facility] 3 10:32:52 Essential hypertension 23910785 Active 2022 ANGELICA LINARES null, [place] - [facility] 3 10:32:49 Osteoporosis 50855616 Active 2022 Kassandra Weston null, [place] - [facility] 3 13:23:41 Osteoarthritis 075081547 Active 2022 Kassandra Weston null, [place] - [facility] 3 13:23:50 Spinal stenosis 78578009 Active 2022 Kassandra Weston null, [place] - [facility] 3 13:24:00 Diabetes mellitus 21565078 Active 2022 ANGELICA LINARES null, [place] - [facility] 3 15:35:53 Anxiety 29787795 Active 2024 Garfield Quinonez NP [address] , [place], [address], [place] - [facility] 5 09:13:57 Pulmonary emphysema 00945014 Active 2024 Garfield Quinonez NP [address] , [place], [address], [place] [facility] 5 09:14:23 Coronary arterioscleros is 22425386 Active 2024 Garfield Quinonez NP [address] , [place], [address], [place] [facility] 5 09:16:09 Atrial fibrillation 43680123 Active 2024 Garfield Quinonez NP [address] , [place], [address], [place] [facility] 5 09:16:19 Depressive disorder 62542962 Active 2024 Garfield Quinonez NP [address] , [place], [address], [place] [facility] 5 09:16:44 Hyperlipidemia 30800647 Active 2024 Garfield Quinonez NP [address] , [place], [address], [place] [facility] 5 09:17:01 Postoperative hypothyroidism 27932092 Active 2024 Garfield Quinonez NP [address] , [place], [address], [facility] 5 09:17:48 History of cerebrovascula r accident 885557917 Active 2024 Garfield Quinonez NP [address] , [place], [address], [facility] 5 09:19:05 Problem Notes None recorded. Procedures Surgical History Date Name Laterality Status Provider Name and Address Organization Details Recorded Time Thyroidectomy completed [facility] 03/13/2023 10:13:31 Gallbladder Surgery completed [facility] 03/13/2023 10:13:58 Hysterectomy completed [facility] 03/13/2023 10:14:03 Appendectomy completed [facility] 03/13/2023 10:14:08 bilateral cataract extraction completed Garfield Quinonez NP [address], [place], [address], [facility] 10/08/2024 09:19:37 Imaging Results None recorded. Procedure Notes None recorded. Medical Equipment None Reported. Allergies Allergen ID Allergen Name Allergen Category Reaction Reaction Severity Criticality Documentation Date Start Date Code Code System Note Provider Name and Address Organization Details Recorded Time Ceclor medicatio n Not available Not available Not available 03/13/202371282 5 RxNorm Burke More [facility], [facility] 3 10:13:01 codeine medicatio n Not available Not available Not available 03/13/2023 2670 RxNorm Burke More null, [facility] 3 10:13:06 Medications Name Sig Start [...] Is Your Level Of Caffeine Consumption? Moderate [email or web address] Information not available 03/13/2023 How Much Tobacco Do You Smoke? 0.5 PPD [email or web address] Information not available 10/08/2024 Sex: Unknown Functional Status Question Answer Note LastModified by Organizat ion Details LastModified Time Do you use any illicit or recreational drugs? No [email or web address] Information not available 03/13/2023 Do you or have you ever used any other forms of tobacco or nicotine? No [email or web address] Information not available 03/13/2023 What is your level of alcohol consumption? None [email or web address] Information not available 03/13/2023 Mental Status None [...] SNOMED-CT Code Diagnosis ICD10 Code Diagnosis Note 178028 [facility] [address] [place] [address] 08/01/2024 14:35:03 08/01/2024 14:39:26 Type 2 diabetes mellitus 58043090 E11.65 Type 2 diabetes mellitus 753542 Garfield Quinonez NP [facility] [address] [place] [address] 08/15/2024 14:26:22 08/15/2024 14:42:23 Type 2 diabetes mellitus 41722198 E11.65 Type 2 diabetes mellitus 253926 Garfield Quinonez NP [facility] [address] [place] [address] 08/29/2024 14:34:14 08/29/2024 14:52:41 Diabetes mellitus 45523112 E11.9 Diabetes mellitus 151176 Garfield Quinonez NP [facility] [address] [place] [address] 08/29/2024 16:25:25 08/29/2024 16:44:57 Diabetes mellitus 51365771 E11.9 Diabetes mellitus Type 2 serafin betes mellitus 69350984 E11.65 Type 2 diabetes mellitus Essential hypertension 46002422 I10 Essential hypertensi on Goals Section Goal [...] (MEDICARE REPLACEMENT/A DVANTAGE - PPO) Rox Whitfield [id number] Rox Whitfield OBGyn Episode No OBEpisode recorded.
--- OUTSIDE RECORDS SUMMARY | 2024-10-19 15:01 | XMS_ITS | Data Portability ---
Author Organization [facility] SHELLI Sanz [place] [facility] Address [address] [place] [address] Care Team Providers Care Leaf Fat Scraper Name Role Phone GERTRUDE BARTON Primary Care Provider [phone] KARLA PRADO Referring Provider Assessment Encounter Date Assessment Date Assessment LastModified by Organization Details LastModified Time 02/27/2023 02/27/2023 Ms. Whitfield is a 72 y/o female who is presenting with chronic neck pain with radiation into her right superior shoulder. Her MRI demonstrates discrepancy between axial sequences that limits the ability to interpret the true degree of foraminal stenosis that is present. There is probable moderate stenosis on the right at C5-6. Her symptoms do not seem entirely consistent with radiculopathy and she has no radiation further down her arms outside of diffuse aching. She is not myelopathic on exam. I would like for her to acquire a bilateral upper extremity EMG/NCS to assess for any evidence of radiculopathy. I would like for her to acquire a repeat MRI cervical spine within the [facility] system see if a better determination of the true degree of foraminal stenosis can be determined. I will trial her on Flexeril for her neck pain. Lastly, I will refer her to pain management for a right C5-6 TFESI determine if she notes any improvement in her shoulder pain with this injection. We will see her back after completion of the above. [email or web address] Not available 02/27/2023 16:09:52 03/12/2023 03/12/2023 This is a 72-year-old female referred by neurosurgery to consider right C5-6 TFESI for diagnostic benefit. She has pain in the neck with referral into the R>L shoulder. She gets some nondermatomal pain into the upper extremities bilaterally. Decreased sensation present in a right C7 distribution. Spurling's is positive bilaterally. She does also have significant pain with range of motion of the shoulder on the right side. PMH: PSHx: 1. MRI cervical spine 01/01/2023 demonstrates severe C5-6 bilateral foraminal narrowing. Moderate bilateral C6-7 foraminal narrowing. The above image findings were discussed with the patient. Previous injection therapy has included: Intra-articular left shoulder with no benefit (Dr. Prado) Patient has participated in a physician directed home exercise program for at least 6 weeks in the last 6 months Presentation is consistent with cervical radiculopathy. I recommend: 1. Right C5-6 TFESI for diagnostic purposes, hold Plavix 7 days prior, CC requested 2. Potential neurosurgical candidate pending results External records were reviewed and discussed as above, including imaging, clinical notes, and relevant labs. [email or web address] Not available 03/12/2023 11:58:21 Plan of Treatment Reminders Order Date Submit Date Provider Last Modified By Organization Details Last Modified Time Details Appointments None recorded. Lab None recorded. Referral None recorded. Procedures epidural steroid injection, cervical transforami nal (PROC) 2022 023 [id number] [facility] Professional Charges, [address], [place], [address], 12:08:09 Surgeries None recorded. Imaging None recorded. Medication Orders None recorded. Patient TargetsNo targets recorded. Patient Instructions Encounter Date Encounter Id Patient Instructions Last Modified By Organization Details Last Modified Time 03/12/2023 [id number] cardiac clearance* - Requesting clearance to hold Plavix 7 days prior to cervical SOO and restart 24 hours after [email or web address] Not available 03/12/2023 15:37:36 Reason for Referral None Reported. Results Created Date Observation Date Name Description Value Unit Range Abnormal Flag Note LastModifiedBy Organization Detail LastModifiedTime 02/29/20 23 01/01/2023 MRI, cervi teetee spine , w/o contr ast No observ ation record ed. [facility] [address] [place], [address], 02/28/2023 10:37:34 Result Notes None recorded. Procedures Surgical History Date Name Laterality Status Provider Name and Address Organization Details Recorded Time 05/07/19 05 Thyroid Surgery completed [facility] 02/27/2023 13:05:06 05/07/18 90 Appendectomy completed [facility] 02/27/2023 13:05:15 Cholecystectomy completed [facility] 02/27/2023 13:05:33 hysterectomy completed [facility] 02/27/2023 13:05:41 Imaging Results None recorded. Procedure Notes None recorded. Medical Equipment None Reported. Allergies Allergen ID Allergen Name Allergen Category Reaction Reaction Severity Criticality Documentation Date Start Date Code Code System Note Provider Name and Address Organization Details Recorded Time 716367 Ceclor medicatio n Not available Not available Not available 02/27/202378117 [address] [facility] 13:03:47 395153 codeine medicatio n Not available Not available Not available 02/27/[address] [facility] 13:03:53 Medications Name Sig Start Date Stop Date Status Note LastModified by Organization Details LastModified Time cyclobenzap rine 10 mg tablet TAKE 1 TABLET BY MOUTH THREE TIMES DAILY active Not Available Not Available No t Available trazodone 50 mg tablet TAKE 1 TABLET BY MOUTH EVERY DAY AT BEDTIME NEEDED active Not Available Not Available No t Available hydrocodone 5 mg-acetamin ophen 325 mg tablet TAKE 1 TABLET BY MOUTH DAILY 03/12 completed Not Available Not Available Not Available promethazin e 12.5 mg tablet TAKE 1 TABLET BY MOUTH EVERY 6 HOURS NEEDED active Not Available Not Available No t Available prednisone 20 mg tablet TAKE 1 TABLET BY MOUTH DAILY FOR 4 DAYS active Not Available Not Available No t Available niacin ER 500 mg tablet,exte nded [...] Not Available No t Available ciprofloxac in 500 mg tablet TAKE 1 TABLET BY MOUTH TWICE DAILY FOR 7 DAYS active Not Available Not Available No t Available sulfamethox azole 800 mg-trimetho prim 160 mg tablet TAKE 1 TABLET BY MOUTH TWICE DAILY FOR 7 DAYS active Not Available Not Available No t Available omeprazole 40 mg capsule,del ayed release TAKE 1 CAPSULE BY MOUTH ONCE DAILY active Not Available Not Available No t Available alprazolam 0.5 mg tablet TAKE 1 TABLET BY MOUTH THREE TIMES DAILY NEEDED FOR ANXIETY active Not Available Not Available No t Available propranolol 10 mg tablet TAKE 1 TABLET BY MOUTH TWICE DAILY active Not Available Not Available No t Available hydrocodone 7.5 mg-acetamin ophen 325 mg tablet TAKE 1 TABLET BY MOUTH EVERY 6 HOURS NEEDED FOR PAIN FOR 14 DAYS 03/12 completed Not Available Not Available Not Available Synthroid 75 mcg tablet TAKE 1 TABLET BY MOUTH ONCE DAILY IN THE MORNING ON AN EMPTY STOMACH active Not Available Not Available No t Available gabapentin 300 mg capsule TAKE 1 CAPSULE BY MOUTH THREE TIMES DAILY 03/12 completed Not Available Not Available Not Available hydroxyzine HCl 25 mg tablet TAKE 1 TABLET BY MOUTH TWICE DAILY NEEDED FOR ANXIETY active Not Available Not Available No t Available prednisone 5 mg tablets in a dose pack TAKE BY MOUTH DIRECTED ON INSIDE OF PACKAGE active Not Available Not Available No t Available hydroxyzine pamoate 25 mg capsule TAKE 1 CAPSULE BY MOUTH ONCE DAILY AT BEDTIME NEEDED active Not Available Not Available No t Available nitrofurant oin monohydrate /macrocryst als 100 mg capsule TAKE 1 CAPSULE BY MOUTH TWICE DAILY FOR 5 DAYS active Not Available Not Available No t Available Tylenol Arthritis Pain active Not Available Not Available Not Available fenofibrate nanocrystal lized 145 mg tablet TAKE [...] OR BEVERAGE OR MEDICINE OF THE DAY active Not Available Not Available No t Available Vitals Date Recorded Body height Body mass index (BMI) Body weight Systolic blood pressure Diastolic blood pressure Provider Name and Address Organization Details Last Updated DateTime 02/27/2023 170.18 cm 24.6 kg/m2 05448 g 134 mm[Hg] 80 mm[Hg] Coco Castro [facility] 13:03:36 Date Recorded Body height Body mass index (BMI) Body weight Body temperature Systolic blood pressure Diastolic blood pressure Provider Name and Address Organization Details Last Updated DateTime 3 170.18 cm 25.1 kg/m2 05926.7 8 g 98.6 [degF] 126 mm[Hg] 80 mm[Hg] Pippa Buckner [facility] 3 11:37:19 Social History Question Answer Notes LastModified by Organizat ion Details LastModified Time Tobacco Smoking Status Current Every Day Smoker 1/2 PACKS A DAY [facility] 02/27/2023 13:04:52 How Much Tobacco Do You Smoke? 0.5 PPD Information not available 02/27/2023 Sex: Unknown Functional Status None recorded. Mental Status None recorded. Family History Relationship Description Onset Age of this Age Resolved Age Notes LastModified by Organization Details LastModified Time Unspecified Relation Family history of malignant neoplasm [email or web address] Not available 13:04:18 Unspecified Relation Heart disease [email or web address] Not available 13:04:22 Unspecified Relation Epilepsy [email or web address] Not available 13:04:27 Unspecified Relation Back problem Not availabl e 02/27/2023 13:04:31 Medical History No medical history recorded. Gynecological HistoryNo gynecological history recorded. Obstetrics History GPAL:G 0 P 0 0 0 0 Past Encounters Encounter ID Performer Location Encounter Start Date Encounter Closed Date Diagnosis/Indication Diagnosis SNOMED-CT Code Diagnosis ICD10 Code Diagnosis Note [id number] PAT HUGGINS MD [facility] [address] [place] [address] 02/27/2023 12:40:39 02/28/2023 05:08:36 Cervical spondylosis 690788683 M47.812 [id number] NAY SHAH MD [facility] [address] [place] [address] 03/12/2023 10:56:31 03/13/2023 05:07:36 Cervical radiculopathy 82821266 M54.12 Degenerati on of cervical intervertebral disc 14538380 M50.30 Cervical spondylosis 387 094846 M47.812 Health Concerns Section Related Observation LastModified by Organization Elizabeth starr LastModified Time None Recorded Concern Status LastModified by Organization Details LastModified Time None Recorded Advance Directives Directive None Recorded Payers Insurance Date Sequence Insurance Name Policy Number Policy Gallardo Covered Member ID Gallardo Member ID Guarantor Name 03/12/2023 1 [place]MEDICARE REPLACEMENT HMO) [id number] Rox Whitfield [id number] Rox Whitfield Notes Date Note Type Note Provider Name and Address Organization Details Recorded Time 02/27/2023 text/html Ms. Whitfield is a [age] y/o female who I am seeing in relation to neck pain with right shoulder radiation. This has been present chronically for many years. She describes this as a throbbing radiating from her right paraspinal region into her right superior shoulder. She also has diffuse arm pain and describes it as her bones hurting . She has a history of fibromyalgia. She previously trialed gabapentin, but found that this caused burning in her hands and feet and discontinued the medication. She has been taking Tylenol arthritis for pain control. She reports that she is having some difficulty with fine motor functions of the hands, but also has arthritis in her hands. She does not clearly have a radiating pain that is progressing further down her arm than the proximal superior shoulder. Several years ago, it seems like she may have undergone spinal injections in her neck, but this is not clear. She had a left shoulder injection approximately 3 weeks ago that caused her to experience diffuse pain in all of her joints. She persisted in physical therapy approximately 3 months ago with no relief. She reportedly had a prior stroke and in general is intolerant of NSAIDs due to gastric irritation. She self-reports a history of carpal tunnel syndrome bilaterally. I have reviewed her cervical x-rays dated December 20, 2022 as well as her cervical MRI dated January 01, 2023, both from outside imaging facilities. Her x-rays demonstrate no evidence of instability/spondyl olisthesis. She has preserved cervical lordosis measuring approximately 35 degrees. Her C2-C7 SVA is approximately 2.5 cm. Her MRI shows cervical spondylosis most pronounced at C5-6 and C6-7. At C4-5, there is mild central canal stenosis without significant cord deformation. There is no foraminal stenosis at this segment. At C5-6, there is moderate central canal stenosis with some cord compression, but no significant deformation. There is moderate right foraminal stenosis at this segment. At C6-7, there is no significant cord contact and minimal foraminal stenosis. There is no STIR changes within the spinal cord. There is some discrepancy in the axial imaging with her foraminal stenosis appearing much more significant on some of the sequences and appearing much more mild on the other sequences. There is motion artifact on the sequences that demonstrate more stenosis. PAT HUGGINS MD [address] [place] [address], [phone], [facility] 02/27/2023 16:10:03 03/12/2023 text/html Pain Management C-spine GISHReported bypatient.Location: right shoulder pain;neck pain posterior bilateral; back of head Quality:sharp Severity:current pain level 5/10; worst pain 9/10;interference with sleep Duration:intermitte nt Onset/Timin months Context:cannot identify Alleviating Factors:heat Aggravating Factors:cold weather; looking down; looking up; turning to the left; turning to the right Associated Symptoms:no bladder compromise; no bowel compromise Prior Imaging:MRI (01/01/23) Prior EMG:none Previous Surgerynone Previous Injections:none Previous PT:none Previous progressive care nurse:none NAY SHAH MD [address] [place] [address], [phone], [facility] 03/12/2023 11:58:34 OBGyn Episode No OBEpisode recorded.
--- OUTSIDE RECORDS SUMMARY | 2024-10-19 15:01 | XMS_ITS | Patient Health Record ---
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 (496) 10/05/2017 PROTHROMBIN TIME-INR ([facility] Test Code: 8 847) 10/05/2017 Liver Fibrosis, FibroTest-ActiTest Panel (93386) 10/05/2017 Insurance Providers Payer Name Payer Address Payer Phone Subscriber Number Group Number Insured Name Patient Relationship to Insured Coverage Start Date Coverage End Date [facility] [address] [address] [place] [address] [phone] [id number] Rox Whitfield Self - patient is the insured 8 Medical (General) History Medical History History ICD Code Hypothyroidism depression pancreatitis Surgical History Surgery Date(Month/Year) cholecystectomy hysterectomy thyroid
--- OUTSIDE RECORDS SUMMARY | 2024-10-19 15:01 | XMS_ITS | Continuity of Care Document ---
Author Organization [place] [facility], [facility]Nursing Schedule Address [address] [place] [address] Care Team Providers Care Shoer Name Role Phone MIRZA MASON Primary Care Provider Assessment No assessment recorded. [...] By Organization Details Last Modified Time 08/29/2024 [id number] The member is cu rrently located in [place]. Pre-CallReview Readings Pre-call review started at 2024-08-29 16:25 EDT Glucometer Readings: Glucose 7-day fasting average: 106, non-fasting average: undefined Glucose 30-day fasting average: 113, non-fasting average: undefined Review Notes Most recent nurse notes were reviewed. Most recent provider notes were reviewed. Clinical Topics Last visit had these follow-up items: Current fasting blood glucose levels within target goal range. Attempted troubleshooting of device with member however device completely . Will ask an alternate nurse to provide call back to member later in the day, once charged, to assist her with reboot of device. Call InitiationConnection Connected: The member answered our calls Recording Call The member was notified and acknowledged that the call is being recorded for quality and training purposes. Identity Confirmation The member s identity was confirmed using name and date of . Location Confirmation The member is currently located in [place]. The member is willing and able to complete the call. Critical Issues The following critical issues were addressed: Device tech/usage issue: Member stated BG device is not working Member was able to charge and turn device on, did further troubleshooting and device is not able to connect. Member stated it's off airplane mode. Had member move to a window and try again, device was still not connecting. Advised member to charge device every night and to continue reading, next time member goes to town she will take device with her and try again. Clinical Goals Goal: Non-fasting glucose less than 180 mg/DL Status: Not Started Current Value: Goal: Fasting glucose less than 130 mg/DL Status: On Track Current Value: 113 Next StepsConfirm Next Appointments Confirmed the next [place] appointment with the member on 2024-09-12 14:00 EDT. Post-Call DocumentationPerformed By Ashley Antunez Time spent 20 minutes. [email or web address] Not available 08/29/2024 16:44:57 Reason for Referral None Reported. Problems Name Problem SNOMED Code Status Onset Date Resolution Date Notes Provider Name and Address Organization Details Recorded Time Type 2 diabetes mellitus 74122945 Active 2022 ANGELICA DOMINGUEZ SECORY null, [place] - [facility] 3 10:32:52 Essential hypertension 18203370 Active 2022 ANGELICA DOMINGUEZ SECORY [place], [place] - [facility] 3 10:32:49 Osteoporosis 96171011 Active 2022 Kassandra Weston null, [place] - [facility] 3 13:23:41 Osteoarthritis 540410008 Active 2022 Kassandra Weston null, [place] - [facility] 13:23:50 Spinal stenosis 30416650 Active 2022 Kassandra Weston null, [place] - [facility] 3 13:24:00 Diabetes mellitus 03963784 Active 2022 ANGELICA DOMINGUEZ SECORY null, [place] - [facility] 3 15:35:53 Anxiety 15399175 Active 2024 Garfield Quinonez NP [address] , [place], [address], [place] - [facility] 5 09:13:57 Pulmonary emphysema 49404680 Active 2024 Garfield Quinonez NP [address] , [place], [address], [place] [facility] 5 09:14:23 Coronary arterioscleros is 29807020 Active 2024 Garfield Quinonez NP [address] , [place], [address], [place] [facility] 5 09:16:09 Atrial fibrillation 66338747 Active 2024 Garfield Quinonez NP [address] , [place], [address], [place] [facility] 5 09:16:19 Depressive disorder 77390374 Active 2024 Garfield Quinonez NP [address] , [place], [address], [place] [facility] 5 09:16:44 Hyperlipidemia 84006091 Active 2024 Garfield Quinonez NP [address] , [place], [address], [place] [facility] 5 09:17:01 Postoperative hypothyroidism 34776440 Active 2024 Garfield Quinonez NP [address] , [place], [address], [place] [facility] 5 09:17:48 History of cerebrovascula r accident 178212334 Active 2024 Garfield Quinonez NP [address] , [place], [address], [place] [facility] 09:19:05 Problem Notes None recorded. Procedures Surgical History Date Name Laterality Status Provider Name and Address Organization Details Recorded Time Thyroidectomy completed Burke More [place] - [facility] 03/13/2023 10:13:31 Gallbladder Surgery completed Burke More [place] - [facility] 03/13/2023 10:13:58 Hysterectomy completed Burke [facility] [place] [facility] 03/13/2023 10:14:03 Appendectomy completed Burke More [facility] 03/13/2023 10:14:08 bilateral cataract extraction completed Garfield Quinonez, ERROL [address], [place], [address], [facility] 10/08/2024 09:19:37 Imaging Results None recorded. Procedure Notes None recorded. Medical Equipment None Reported. Allergies Allergen ID Allergen Name Allergen Category Reaction Reaction Severity Criticality Documentation Date Start Date Code Code System Note Provider Name and Address Organization Details Recorded Time Ceclor medicatio n Not available Not available Not available 03/13/202347099 5 RxNorm Burke More [facility], [facility] 3 10:13:01 codeine medicatio n Not available Not available Not available 03/13/2023 2670 RxNorm Burke More null, [facility] 3 10:13:06 Medications Name Sig [...] Status Current Some Day Smoker Burke Angelaers [facility], [place] - [facility] 03/13/2023 10:13:25 What Is Your Level Of Caffeine Consumption? Moderate [email or web address] Information not available 03/13/2023 How Much Tobacco Do You Smoke? 0.5 PPD [email or web address] Information not available 10/08/2024 Sex: Unknown Functional Status Question Answer Note LastModified by Organizat ion Details LastModified Time Do you use any illicit or recreational drugs? No [email or web address] Information not available 03/13/2023 Do you or have you ever used any other forms of tobacco or nicotine? No [email or web address] Information not available 03/13/2023 What is your level of alcohol consumption? None [email or web address] Information not available 03/13/2023 Mental Status None recorded. Family History Nothing Reported. Medical History Condition Response Coronary Artery Disease Y Other Y Hyperthyroidism N COPD Y Depression Y Hypothyroidism Y Anxiety Disorder Y Obesity N Vision or Eye Problems Y Arthritis Y Cancer N Stroke Y High Cholesterol Y Kidney Disease N Diabetes Y Congestive Heart Failure (CHF) N Asthma N Sleep Apnea N Neuropathy N Hypertension Y Gynecological HistoryNo gynecological history recorded. Obstetrics History GPAL:G 0 P 0 0 0 0 Past Encounters Encounter ID Performer Location Encounter Start Date Encounter Closed Date Diagnosis/Indication Diagnosis SNOMED-CT Code Diagnosis ICD10 Code Diagnosis Note [id number] ERROL [facility] Schedule [address] [place] [address] 08/01/2024 14:35:03 08/01/2024 14:39:26 Type 2 diabetes mellitus 74626774 E11.65 Type 2 diabetes mellitus 721616 Garfield Quinonez NP [facility] [address] [place] [address] 08/15/2024 14:26:22 08/15/2024 14:42:23 Type 2 diabetes mellitus 67611564 E11.65 Type 2 diabetes mellitus 524882 Garfield Quinonez NP [facility] Schedule [address] [place] [address] 08/29/2024 14:34:14 08/29/2024 14:52:41 Diabetes mellitus 39192734 E11.9 Diabetes mellitus 357929 Garfield Quinonez NP [facility] Schedule [address] [place] [address] 08/29/2024 16:25:25 08/29/2024 16:44:57 Diabetes mellitus 88861525 E11.9 Diabetes mellitus Type 2 serafin betes mellitus 99194775 E11.65 Type 2 diabetes mellitus Essential hypertension 83311732 I10 Essential hypertensi on Goals Section Goal Description Progress Status Start Date LastModified by Organization Details LastModified Time Diabetes Diet Maintain a diabetes diet as recommended by your care team NoChange active Valerie Rizo Information not available 06/04/2023 22:35:30 Blood Glucose Maintains fsting blood glucose within target range of less than 150 achieved active Myesha Matute Information not available 02/29/2024 18:24:27 Health Concerns Section Related Observation LastModified by Organization Detai ls LastModified Time None Recorded Concern Status LastModified by Organization Details LastModified Time None Recorded Payers Encounter Date Sequence Insurance Name Policy Number Policy Gallardo Covered Member ID Gallardo Member ID Guarantor Name 08/29/2024 1 [employer] (MEDICARE REPLACEMENT/A DVANTAGE - PPO) Rox Whitfield [id number] Rox Whitfield OBGyn Episode No OBEpisode recorded.
--- OUTSIDE RECORDS SUMMARY | 2024-10-19 15:01 | XMS_ITS | Clinical Summary ---
Author Organization [facility] Address [address] [place] [address] Care Team Providers Care Salesperson Yard Goods Name Role Phone Darrell Lane MD Primary Care Provider [phone]- [phone] Encounters Date Type Department Care Team Description 10/16/[address] [facility] Urology [address] [place] [address] Yissel Preciado APRN, WILLARD HCN Clinical Concern/Question from Last 3 Months Social History Tobacco Use Types Packs/Day Years [...] Info) Description 02/11/2025 8:[address] [facility] Urology [address] [place] [address] Yissel Preciado APRN, WILLARD [address] [place] [address] Health Maintenance Due Date Last Done Comments [facility]-Bone Density Scan 1948 [facility]-Depression Screening 1948 [facility]-Hepatitis C Screening 1950 [facility]-Medicare Annual Wellness (AWV) 1948 [facility]-Infant/Child/Adol SDOH Screenings 1948 [facility]- SDOH Screenings 1966 [facility]-Adult SDOH Screenings 1966 [facility]-DTaP,Tdap,and Td Vaccines (1 - Tdap) 08/01/1967 [facility]-RSV Vaccine: 60+ Years or (1 - 1-dose 75+ series) 08/01/2023 [id number] Vaccine ( season) 2024 11/26/2021, 08/30/2020 [facility]-Influenza Vaccine (Season Ended) 2025 02/14/2021 [facility]-Pneumococcal Vaccine: 50+ Years Completed 11/26/2021 [facility]-Zoster Vaccines Completed 01/14/2024, 09/03/2023 HPV Vaccines Aged Out No longer eligi [...] patient's age to complete this topic Insurance [facility] MEDICARE Care Teams Salesperson Yard Goods Relationship Specialty Start Date End Date Darrell Lane MD [address] [place] [address] PCP - General 10/15/24
--- NOTE | 2024-10-19 15:02 | HMH.EDGENADL ---
Discharge Plan Disposition Patient Disposition: Home, Self-Care Condition: Good Prescriptions Prescriptions: New amoxicillin-pot clavulanate 875-125 mg tablet 1 tab PO Q8 7 Days Qty: 21 0RF promethazine 12.5 mg tablet 12.5 mg PO TID PRN (Reason: allergy symptoms) Qty: 14 0RF Rx Instructions: 3 doses during day; last dose no later than 4 hr before bedtime No Action estradiol 0.01 % (0.1 mg/gram) cream See Rx Instructions vaginal .COMPLEX Qty: 42.5 2RF Rx Instructions: Using finger technique daily for two weeks and then twice weekly vaginally; omega-3 acid ethyl esters 1 gram capsule 1 cap PO BID 90 Days Qty: 180 3RF promethazine 12.5 mg tablet 12.5 mg PO Q4-6H PRN (Reason: nausea and vomiting) Qty: 30 1RF sucralfate [Carafate] 1 gram tablet 1 g PO QACHS PRN alprazolam [Xanax] 0.5 mg tablet 0.5 mg PO TID Qty: 90 2RF oxycodone 10 mg tablet 10 mg PO QID PRN (Reason: pain) Qty: 120 0RF nitrofurantoin monohyd/m-cryst 100 mg capsule 100 mg PO Q12H 7 Days Qty: 14 0RF Rx Instructions: must administer with a meal/food duloxetine [Cymbalta] 30 mg capsule,delayed release(DR/EC) 30 mg PO DAILY Qty: 30 2RF levothyroxine [Synthroid] 50 mcg tablet 50 mcg PO DAILY Qty: 90 3RF Vasculera 630 mg tablet 1 tab PO DAILY calcium polycarbophil [FiberCon] 625 mg tablet 1,250 mg PO DAILY magnesium oxide 400 mg magnesium capsule 400 mg PO DAILY clopidogrel 75 mg tablet 75 mg PO DAILY Qty: 90 0RF metformin 500 mg tablet 500 mg PO BID Qty: 60 3RF Linzess 290 mcg capsule 290 mcg PO DAILY Patient Comments: TAKE 1 CAPSULE BY MOUTH EVERY DAY 30 MINUTES BEFORE FIRST MEAL OF THE DAY ON AN EMPTY STOMACH Referrals Follow up/Referrals: Darrell Lane MD [Primary Care Provider, Family Practice] - See instructions Clinical Impressions Clinical Impression: Diverticulitis Instructions Patient Instructions: DI for Diverticulitis Print Language Print Language: Indonesian Discharge ED Provider: Angel,Ross A General Adult HPI <WEI Bhatia - Last Filed: 10/19/24 17:23> General Chief complaint: Abdominal Pain Stated complaint: diarrhea left side abd pain Time Seen by Provider: 10/19/24 14:54 Mode of Arrival: Ambulatory Source of Information: Patient Description of Symptoms (Recalled from ER Triage Doc. by RN): Patient states she has had left lower abdominal pain since about 1700 last pm. States she has had nausea and some diarrhea. History of pancreatitis. History of Present Illness HPI narrative: 74-year-old female presents to the emergency department with left lower quadrant abdominal pain that started last night around 1700. Patient states she has had waxing waning abdominal pain, and genitourinary pain and frequent UTIs for the last 9 months , she states she is being followed with GI and urology. Denies any fever chills chest pain shortness of breath, denies any constipation diarrhea, melena hematochezia hematemesis, denies any urinary type symptomatology, denies any vaginal type symptomatology, she has tried Gas-X, Mylanta , at home without relief of her symptomatology. She is a current everyday smoker, denies any alcohol or drug use, other past medical history consistent with GERD, T2DM, JARAD, MDD, hypothyroid, hyperlipidemia, COPD, anemia, OAB, rectocele, she is a previous abdominal surgeries to include cholecystectomy, appendectomy. Initial triage vitals are unremarkable. She states that she has a remote/data deficient history of pancreatitis Onset (ago): month(s) Related Data Home Medications ?Medication ?Instructions ?Recorded ?Confirmed linaclotide 290 mcg capsule 290 mcg PO DAILY 10/01/23 10/14/24 (Linzess) sucralfate 1 gram tablet (Carafate) 1 g PO QACHS PRN 09/18/24 10/14/24 calcium polycarbophil 625 mg 1,250 mg PO DAILY 10/02/24 10/14/24 tablet (FiberCon) diosmin complex no.1 630 mg tablet 1 tab PO DAILY 10/02/24 10/14/24 (Vasculera) magnesium oxide 400 mg PO DAILY 10/02/24 10/14/24 Previous Rx's ?Medication ?Instructions ?Recorded estradiol 0.01% (0.1 mg/gram) See Rx Instructions vaginal 03/03/24 vaginal cream .COMPLEX #42.5 grams omega-3 acid ethyl esters 1 gram 1 cap PO BID 90 days #180 caps 06/05/24 capsule promethazine 12.5 mg tablet 12.5 mg PO Q4-6H PRN nausea and 07/03/24 vomiting #30 tabs Synthroid 50 mcg tablet 50 mcg PO DAILY thyroid disease 07/31/24 (levothyroxine) #90 tabs clopidogrel 75 mg tablet 75 mg PO DAILY Blood thinner #90 08/13/24 tabs metformin 500 mg tablet 500 mg PO BID #60 tabs 09/16/24 alprazolam 0.5 mg tablet (Xanax) 0.5 mg PO TID #90 tabs 09/18/24 oxycodone 10 mg tablet 10 mg PO QID PRN pain #120 tabs 09/18/24 nitrofurantoin 100 mg PO Q12H 7 days #14 caps 10/14/24 monohydrate/macrocrystals 100 mg capsule duloxetine 30 mg capsule,delayed 30 mg PO DAILY #30 caps 10/16/24 release (Cymbalta) amoxicillin 875 mg-potassium 1 tab PO Q8 7 days #21 tabs 10/19/24 clavulanate 125 mg tablet promethazine 12.5 mg tablet 12.5 mg PO TID PRN allergy 10/19/24 symptoms #14 tabs Allergies Allergy/AdvReac Type Severity Reaction Status Date / Time cefaclor (From Ceclor) Allergy Mild Verified 10/14/24 11:22 codeine Allergy Mild Verified 10/14/24 11:22 Sulfa (Sulfonamide Allergy Mild Verified 10/14/24 11:22 Antibiotics) [facility] <WEI Bhatia - Last Filed: 10/19/24 17:23> [facility] Disclaimer: The information contained in this section may have been updated after the patient was seen, as this information can be updated by other users. Medical History Encounter for pre-operative cardiovascular clearance Abnormal electrocardiogram [ECG] [EKG] Hyperlipidemia Hypothyroidism Diabetes We have not done an HbA1c nor microalbumin and this patient. Again something that should have been done at previous visits. Will check this at her next visit. CAD (coronary artery disease) Anxiety Anuja Weston is following this patient and is writing for the alprazolam. Will leave this up to her at this point. COPD (chronic obstructive pulmonary disease) Panic disorder Surgical History Hx of appendectomy History of hysterectomy History of cholecystectomy History of thyroidectomy Family History Other No significant family history Social History Smoking Status: Current every day smoker quit status: considering quitting alcohol intake: never current occupational status: retired Travel in the last 8 weeks?: None Have you lived/traveled outside [place] in past 30 days?: No Contact w/someone who lives/traveled outside US past 30 days?: No Exposure to someone with infectious disease in past 14 days?: No Do you have a fever (greater than 100.4 F or 38 C)?: No Have you tested positive for COVID-19?: No Exposed to someone with COVID-19 in past 14 days?: No Do you have a sore throat?: No Do you have a cough?: No Do you have any weakness?: No Do you have any diarrhea?: No Are you experiencing any unusual bleeding?: No Do you have any muscle aches/pain?: No Do you have any abdominal pain?: No Are you experiencing loss of taste or smell?: No Other Medical History Have you received the Flu Vaccine for this season: Yes Have you received the Pneumonia Vaccine: Yes <WEI Bhatia - Last Filed: 10/19/24 17:23> ROS Obtained: Yes All systems reviewed & no additional complaints except as documented Physical Exam <WEI Bhatia - Last Filed: 10/19/24 17:23> General General appearance: alert and in no apparent distress Head Head exam: atraumatic and normocephalic Eye Eye exam: Present PERRL and EOMI ENT ENT exam: Present mucous membranes moist Neck Neck exam: Present normal inspection Chest Chest inspection: Present normal inspection and symmetric chest wall rise Respiratory Respiratory exam: Present normal lung sounds bilaterally; Absent respiratory distress, wheezes or stridor Cardiovascular Cardiovascular exam: Present regular rate and normal rhythm Abdominal Exam Abdominal exam: Present soft and tenderness; Absent guarding, rebound or rigidity Abdominal tenderness: Present LLQ, epigastrium, suprapubic and mild Comment: Mild LLQ, mid epigastric and suprapubic tenderness to palpation Extremities Exam Extremities exam: Present normal inspection Neurological Exam Neurological exam: Present alert and oriented X3 Psychiatric Psychiatric exam: Present normal affect Skin Skin exam: Present warm and dry Medical Decision Making <WEI Bhatia - Last Filed: 10/19/24 17:23> Medical Records Medical records reviewed: Yes I reviewed the patient's medical records. Screening: Per USPSTF and CDC recommendations, given the prevalence of disease in our region, it is our hospital?s policy to screen for HIV and viral Hepatitis for all patients aged 18 and over and those with ongoing risk factors. Marvin Inquiry Pt receiving controlled substance: No Marvin was queried for this patient: No Vital Signs: 10/19/24 14:45 10/19/24 14:46 10/19/24 15:00 Temperature 98.3 F Temperature Source Oral Pulse Rate 60 60 Pulse Rate [Right Radial] 63 Respiratory Rate 17 14 16 Blood Pressure 147/78 H 152/81 H Blood Pressure [Right Arm] 147/78 H Blood Pressure Mean 86 104 Blood Pressure Mean [Right Arm] 101 Blood Pressure Source Blood Pressure Source [Right Arm] Automatic Cuff Blood Pressure Position Blood Pressure Position [Right Arm] Supine 02 Sat by Pulse Oximetry 97 98 97 Oxygen Delivery Method Room Air 10/19/24 15:30 10/19/24 16:01 10/19/24 16:30 Temperature Temperature Source Pulse Rate 71 71 66 Pulse Rate [Right Radial] Respiratory Rate 13 18 10 L Blood Pressure 165/88 H 128/68 160/82 H Blood Pressure [Right Arm] Blood Pressure Mean 102 Blood Pressure Mean [Right Arm] Blood Pressure Source Blood Pressure Source [Right Arm] Blood Pressure Position Blood Pressure Position [Right Arm] 02 Sat by Pulse Oximetry 94 L 94 L 96 Oxygen Delivery Method Room Air Room Air 10/19/24 17:00 10/19/24 17:43 Temperature 98.5 F Temperature Source Oral Pulse Rate 61 86 Pulse Rate [Right Radial] Respiratory Rate 18 16 Blood Pressure 157/81 H 157/87 H Blood Pressure [Right Arm] Blood Pressure Mean 92 Blood Pressure Mean [Right Arm] Blood Pressure Source Automatic Cuff Blood Pressure Source [Right Arm] Blood Pressure Position Sitting Blood Pressure Position [Right Arm] 02 Sat by Pulse Oximetry 95 Oxygen Delivery Method Room Air Lab Data Lab results reviewed: Yes I reviewed the patient's lab results. Lab Results 10/19/24 14:48: WBC 5.3, RBC 3.48 L, Hgb 10.7 L, Hct 33.1 L, MCV 95.1, MCH 30.7, MCHC 32.3, RDW 13.2, Plt Count 239, MPV 9.4, Neut % (Auto) 49.8, Lymph % (Auto) 40.5, [place] % (Auto) 7.0, Eos % (Auto) 1.7, Baso % (Auto) 0.8, Neut # (Auto) 2.6, Lymph # (Auto) 2.1, [place] # (Auto) 0.4, Eos # (Auto) 0.1, Baso # (Auto) 0.0, Sodium 138, Potassium 3.7, Chloride 100, Carbon Dioxide 32 H, Anion Gap 9.7, BUN 11, Creatinine 0.90, Estimated Creat Clear 55, Estimated GFR 61, Est GFR ( Amer) 74, Glucose 100, Calcium 9.4, Total Bilirubin 0.4, AST 32, ALT 17, Alkaline Phosphatase 70, Total Protein 7.9, Albumin 4.4, Globulin 3.5 H, Albumin/Globulin Ratio 1.3, Lipase 25 10/19/24 15:26: Urine Color Yellow, Urine Appearance Clear, Urine pH 8.5, Ur Specific [place] 1.010, Urine Protein Negative, Urine Glucose (UA) Negative, Urine Ketones Negative, Urine Blood Negative, Urine Nitrate Negative, Urine Bilirubin Negative, Urine Urobilinogen 0.2, Ur Leukocyte Esterase Trace, Urine RBC None, Urine WBC Occasional, Ur Squamous Epith Cells None, Urine Bacteria None 10/19/24 14:48 10/19/24 14:48 Orders (Tests/Meds): ED MEDICATIONS Discontinued Medications Generic Name Dose Route Start Last Admin Trade Name Freq PRN Reason Stop Dose Admin Hydromorphone HCl 0.5 mg 10/19/24 15:57 10/19/24 16:00 Hydromorphone 2mg/Ml Syringe IV 10/19/24 15:58 0.5 mg ONCE ONE Administration Iopamidol 75 ml 10/19/24 15:43 10/19/24 15:44 Iopamidol-370 (76%);100ml Bottle IV 10/19/24 15:44 75 ml ONCE ONE Administration Morphine Sulfate 4 mg 10/19/24 15:01 10/19/24 15:09 Morphine 4mg/Ml Syringe IV 10/19/24 15:02 4 mg ONCE ONE Administration Ondansetron HCl 4 mg 10/19/24 15:01 10/19/24 15:09 Ondansetron 4mg/2ml Vial IV 10/19/24 15:02 4 mg ONCE ONE Administration Sodium Chloride 10 ml 10/19/24 15:43 10/19/24 15:44 Sodium Chloride 0.9% 10ml Syr (Rad Only) IV 10/19/24 15:44 10 ml ONCE ONE Administration ORDERS Category Date Time Status CT abdomen pelvis w con Stat Cat Scan 10/19/24 15:00 Completed Complete Blood Count Auto Diff Stat Lab 10/19/24 14:48 Completed Comprehensive Metabolic Panel Stat Lab 10/19/24 14:48 Completed Lipase Stat Lab 10/19/24 14:48 Completed Urinalysis and Microscopic Stat Lab 10/19/24 15:26 Completed Medical Decision Narrative: 74-year-old female presents emergency department with abdominal pain nausea, no vomiting, differential diagnose include but not limited to, acute UTI, acute pyelonephritis, nephrolithiasis, ureterolithiasis, diverticulitis, colitis, pancreatitis, pseudo colonic obstruction, bowel obstruction, chronic pain syndrome, rectocele among others. I discussed patient case with attending physician Dr. Ortiz Will obtain basic laboratory studies lactic acid level lipase urinalysis, CT and pelvis with contrast, will give 4 mg IV morphine and 4 mg IV Zofran for nausea and pain. CBC is notable for hemoglobin 10.7, hematocrit 33.1, which appears chronic for the patient, otherwise unremarkable CBC. CMP is notable for normal lipase. Was notified by nursing staff at approximately 3:25 PM that the patient is requesting something stronger for pain . Patient still complaining of some pain will give 0.5 mg IV Dilaudid for pain. I reviewed the patient's CT abdomen pelvis with contrast along the corresponding radiologic report there are few scattered colon diverticulosis of the inflammatory changes surrounding the sigmoid colon within the left lower quadrant consistent with acute uncomplicated diverticulitis no findings such as perforation or abscess, fatty atrophy of the pancreas, calcifications in the expected location of pancreatic head and uncinate process, can be seen in the setting of chronic pancreatitis, there is a 1.1 x 1.5 cm high density nodule left adrenal gland, unchanged compared to multiple prior studies including MRI in 2023, or demonstrates signal dropout in phase imaging most consistent with adrenal adenoma. I discussed these findings with the patient at the bedside, patient is in agreement with current admission plan/treatment plan, patient is feeling better as far as her nausea and pain go after medication ministration, patient will be prescribed 875 mg p.o. Augmentin, Q8 for 7 days, recommend bowel rest, progress diet as tolerated, will also give patient Phenergan 12.5 mg p.o. as needed for nausea and vomiting. Patient will return to the emergency department with any worsening signs or symptoms, she has remained hemodynamically stable throughout her time in the emergency department, no leukocytosis, acute mild uncomplicated diverticulitis. Patient was given strict ED return precautions and voiced understanding and agreement with current treatment plan/discharge plan. <Naldo Ortiz MD - Last Filed: 10/19/24 19:10> Vital Signs: 10/19/24 14:45 10/19/24 14:46 10/19/24 15:00 Temperature 98.3 F Temperature Source Oral Pulse Rate 60 60 Pulse Rate [Right Radial] 63 Respiratory Rate 17 14 16 Blood Pressure 147/78 H 152/81 H Blood Pressure [Right Arm] 147/78 H Blood Pressure Mean 86 104 Blood Pressure Mean [Right Arm] 101 Blood Pressure Source Blood Pressure Source [Right Arm] Automatic Cuff Blood Pressure Position Blood Pressure Position [Right Arm] Supine 02 Sat by Pulse Oximetry 97 98 97 Oxygen Delivery Method Room Air 10/19/24 15:30 10/19/24 16:01 10/19/24 16:30 Temperature Temperature Source Pulse Rate 71 71 66 Pulse Rate [Right Radial] Respiratory Rate 13 18 10 L Blood Pressure 165/88 H 128/68 160/82 H Blood Pressure [Right Arm] Blood Pressure Mean 102 Blood Pressure Mean [Right Arm] Blood Pressure Source Blood Pressure Source [Right Arm] Blood Pressure Position Blood Pressure Position [Right Arm] 02 Sat by Pulse Oximetry 94 L 94 L 96 Oxygen Delivery Method Room Air Room Air 10/19/24 17:00 10/19/24 17:43 Temperature 98.5 F Temperature Source Oral Pulse Rate 61 86 Pulse Rate [Right Radial] Respiratory Rate 18 16 Blood Pressure 157/81 H 157/87 H Blood Pressure [Right Arm] Blood Pressure Mean 92 Blood Pressure Mean [Right Arm] Blood Pressure Source Automatic Cuff Blood Pressure Source [Right Arm] Blood Pressure Position Sitting Blood Pressure Position [Right Arm] 02 Sat by Pulse Oximetry 95 Oxygen Delivery Method Room Air Lab Data Lab Results 10/19/24 14:48: WBC 5.3, RBC 3.48 L, Hgb 10.7 L, Hct 33.1 L, MCV 95.1, MCH 30.7, MCHC 32.3, RDW 13.2, Plt Count 239, MPV 9.4, Neut % (Auto) 49.8, Lymph % (Auto) 40.5, [place] % (Auto) 7.0, Eos % (Auto) 1.7, Baso % (Auto) 0.8, Neut # (Auto) 2.6, Lymph # (Auto) 2.1, [place] # (Auto) 0.4, Eos # (Auto) 0.1, Baso # (Auto) 0.0, Sodium 138, Potassium 3.7, Chloride 100, Carbon Dioxide 32 H, Anion Gap 9.7, BUN 11, Creatinine 0.90, Estimated Creat Clear 55, Estimated GFR 61, Est GFR ( Amer) 74, Glucose 100, Calcium 9.4, Total Bilirubin 0.4, AST 32, ALT 17, Alkaline Phosphatase 70, Total Protein 7.9, Albumin 4.4, Globulin 3.5 H, Albumin/Globulin Ratio 1.3, Lipase 25 10/19/24 15:26: Urine Color Yellow, Urine Appearance Clear, Urine pH 8.5, Ur Specific [place] 1.010, Urine Protein Negative, Urine Glucose (UA) Negative, Urine Ketones Negative, Urine Blood Negative, Urine Nitrate Negative, Urine Bilirubin Negative, Urine Urobilinogen 0.2, Ur Leukocyte Esterase Trace, Urine RBC None, Urine WBC Occasional, Ur Squamous Epith Cells None, Urine Bacteria None Orders (Tests/Meds): ED MEDICATIONS Discontinued Medications Generic Name Dose Route Start Last Admin Trade Name Freq PRN Reason Stop Dose Admin Hydromorphone HCl 0.5 mg 10/19/24 15:57 10/19/24 16:00 Hydromorphone 2mg/Ml Syringe IV 10/19/24 15:58 0.5 mg ONCE ONE Administration Iopamidol 75 ml 10/19/24 15:43 10/19/24 15:44 Iopamidol-370 (76%);100ml Bottle IV 10/19/24 15:44 75 ml ONCE ONE Administration Morphine Sulfate 4 mg 10/19/24 15:01 10/19/24 15:09 Morphine 4mg/Ml Syringe IV 10/19/24 15:02 4 mg ONCE ONE Administration Ondansetron HCl 4 mg 10/19/24 15:01 10/19/24 15:09 Ondansetron 4mg/2ml Vial IV 10/19/24 15:02 4 mg ONCE ONE Administration Sodium Chloride 10 ml 10/19/24 15:43 10/19/24 15:44 Sodium Chloride 0.9% 10ml Syr (Rad Only) IV 10/19/24 15:44 10 ml ONCE ONE Administration ORDERS Category Date Time Status CT abdomen pelvis w con Stat Cat Scan 10/19/24 15:00 Completed Complete Blood Count Auto Diff Stat Lab 10/19/24 14:48 Completed Comprehensive Metabolic Panel Stat Lab 10/19/24 14:48 Completed Lipase Stat Lab 10/19/24 14:48 Completed Urinalysis and Microscopic Stat Lab 10/19/24 15:26 Completed Medical Decision Narrative: 74-year-old female presents emergency department with abdominal pain nausea, no vomiting, differential diagnose include but not limited to, acute UTI, acute pyelonephritis, nephrolithiasis, ureterolithiasis, diverticulitis, colitis, pancreatitis, pseudo colonic obstruction, bowel obstruction, chronic pain syndrome, rectocele among others. I discussed patient case with attending physician Dr. Ortiz Will obtain basic laboratory studies lactic acid level lipase urinalysis, CT and pelvis with contrast, will give 4 mg IV morphine and 4 mg IV Zofran for nausea and pain. CBC is notable for hemoglobin 10.7, hematocrit 33.1, which appears chronic for the patient, otherwise unremarkable CBC. CMP is notable for normal lipase. Was notified by nursing staff at approximately 3:25 PM that the patient is requesting something stronger for pain . Patient still complaining of some pain will give 0.5 mg IV Dilaudid for pain. I reviewed the patient's CT abdomen pelvis with contrast along the corresponding radiologic report there are few scattered colon diverticulosis of the inflammatory changes surrounding the sigmoid colon within the left lower quadrant consistent with acute uncomplicated diverticulitis no findings such as perforation or abscess, fatty atrophy of the pancreas, calcifications in the expected location of pancreatic head and uncinate process, can be seen in the setting of chronic pancreatitis, there is a 1.1 x 1.5 cm high density nodule left adrenal gland, unchanged compared to multiple prior studies including MRI in 2023, or demonstrates signal dropout in phase imaging most consistent with adrenal adenoma. I discussed these findings with the patient at the bedside, patient is in agreement with current admission plan/treatment plan, patient is feeling better as far as her nausea and pain go after medication ministration, patient will be prescribed 875 mg p.o. Augmentin, Q8 for 7 days, recommend bowel rest, progress diet as tolerated, will also give patient Phenergan 12.5 mg p.o. as needed for nausea and vomiting. Patient will return to the emergency department with any worsening signs or symptoms, she has remained hemodynamically stable throughout her time in the emergency department, no leukocytosis, acute mild uncomplicated diverticulitis. Patient was given strict ED return precautions and voiced understanding and agreement with current treatment plan/discharge plan. I was consulted by the JOVITA, and we discussed the complexity of the problems being addressed. I approved the treatment and management plan for this patient's care in the Emergency Department, thus performing a substantive portion of the medical decision making. Naldo Ortiz MD Critical Care <WEI Bhatia - Last Filed: 10/19/24 17:23> Critical Care Time Critical Care Time: No
--- OUTSIDE RECORDS SUMMARY | 2024-10-19 15:02 | XMS_ITS | Encounter Summary ---
Author Organization Healthcare Address [address] [place] [address] Care Team Providers Care Risk Management Professional Name Role Phone Darrell Lane MD Primary Care Provider [phone]- [phone] Reason for Visit * Reason Onset Date Comments HCN Clinical Concern/Question 10/16/2024 Encounter Details Date Type Department Care Team (Late st Contact Info) Description 10/16/2024 Telephone [facility] [address] [place] [address] Yissel Preciado, BRYAN, DNP [address] [place] [address] HCN Clinical Concern/Question Social History Tobacco Use Types Packs/Day Years Used Date Smoking Tobacco: Never Assessed Comments Unknown Sex and Gender Information Value Date Recorded Sex Assigned at Not on file Legal Sex Female 12:33 PM EDT Gender Identity Not on file Sexual Orientation Not on file documented as of this encounter Miscellaneous Notes * Telephone Encounter - Jet Caal - 10/17/2024 8:54 AM EDT Called and spoke with pt. Pt is agreeable with next avail with Dr. Lizarraga. * Telephone Encounter - Harika Avery - 10/16/2024 10:51 AM EDT Clinical Concern/Question Reason for Call: Pt is schedule to be seen on 02/11/25 and is on the wait list. She is calling in because her referring wanted her to be seen by Dr. Lizarraga, she is asking for a nurse to give her a call to give her the details of her appointment and to let her know if she can be seen by Dr. Lizarraga. Best contact number: [phone] (home) Optimal time of day to reach caller: ANYTIME Additional comments/information from caller: None Note: Please do not reply to this message. Follow-up communication and further actions as a result of this message need to be communicated with the patient directly, if the patient is not active onMyChart. If the patient is active on MyChart, they will receive notification of the communication/outcome via Xookerhart. documented in this encounter Plan of Treatment Upcoming Encounters Date Type Department Care Team (Late st Contact Info) Description 02/11/2025 8:20 AM EDT Consult [facility] Urology [address] [place] [address] Yissel Preciado, CPO, DNP [address] [place] [address] documented as of this encounter Visit Diagnoses Not on filedocumented in this encounter Care Teams Risk Management Professional Relationship Specialty Start Date End Date Darrell Lane MD [address] [place] [address] PCP - General 10/15/24 documented as of this encounter
--- OUTSIDE RECORDS SUMMARY | 2024-10-19 15:02 | XMS_ITS | Patient Health Record ---
Author Organization [facility] Address [address] [place] [address] Support Name Relationship Address Phone MAY CROUCH Guarantor Unknown [phone] Reason For Referral No Information Plan Of Treatment No Information Insurance Providers Payer Name Payer Address Payer Phone Subscriber Number Group Number Insured Name Patient Relationship to Insured Coverage Start Date Coverage End Date [employer] [address] [address] [place] [address] [id number] MAY CROUCH Self - patient is the insured
--- OUTSIDE RECORDS SUMMARY | 2024-10-19 15:02 | XMS_ITS | Continuity of Care Document ---
Author Organization [place] [facility], [facility]Provider Schedule Address [address] [place] [address] Care Team Providers Care Solder Leveler Printed Circuit Boards Name Role Phone MIRZA MASON Primary Care [...] By Organization Details Last Modified Time 10/08/2024 [id number] longterm goal of Blood Pressure 130/80 Not available Not available Not available assistant terminal manager goal of Hemoglobin A1C < 7% Not available Not available Not available assistant terminal manager goal of Glucose, Fasting < 130 Not available Not available Not available longterm goal of Glucose, 2 Hour Postprandial < 180 Not available Not available Not available longterm goal of LDL Direct < 70 mg/dL Not available Not available Not available Avoidance of hypoglycemia (any glucose <70)Glucose Test Frequency: QD Fasting [email or web address] Not available 10/08/2024 09:24:58 Patient Instructions Encounter Date Encounter Id Patient Instructions Last Modified By Organization Details Last Modified Time 10/08/2024 [id number] Ms. Whitfield is a(n ) 74 year [...] the [place]. Does the member have the [facility] denis downloaded? No, member declined Next [place] appointment is confirmed on 10/24/2024 between 02:00 PM and 03:00 PM Eastern Time. Was there a need during this visit to complete a Member Service Request? No. If yes, provide a summary of the request. [email or web address] Not available 10/08/2024 09:28:47 Reason for Referral None Reported. Problems Name Problem SNOMED Code Status Onset Date Resolution Date Notes Provider Name and Address Organization Details Recorded Time Type 2 diabetes mellitus 12540074 Active 2022 JUAN MANUEL DOMINGUEZ SECORY null, [place] - [facility] 3 10:32:52 Essential hypertension 68176268 Active 2022 JUAN MANUEL DOMINGUEZ SECORY [place] [facility] 3 10:32:49 Osteoporosis 27551529 Active 2022 Kassandra Weston null, [place] [facility] 3 13:23:41 Osteoarthritis 594578241 Active 2022 Kassandra Wseton null, [place] [facility] 3 13:23:50 Spinal stenosis 50804404 Active 2022 Kassandra Weston [place] [facility] 3 13:24:00 Diabetes mellitus 03754648 Active 2022 ANGELICA JUAN MANUEL ANGELICA SECORY null, [place] - [facility] 3 15:35:53 Anxiety 38932194 Active 2024 Garfield Quinonez NP [address] , [place], [address], [place] [facility] 5 09:13:57 Pulmonary emphysema 35244053 Active 2024 Garfield Quinonez NP [address] , [place], [address], [place] [facility] 5 09:14:23 Coronary arterioscleros is 36956992 Active 2024 Garfield Quinonez NP [address] , [place], [address], [place] [facility] 5 09:16:09 Atrial fibrillation 24163771 Active 2024 Garfield Quinonez NP [address] , [place], [address], [place] [facility] 5 09:16:19 Depressive disorder 96805291 Active 2024 Garfield Quinonez NP [address] , [place], [address], [place] [facility] 5 09:16:44 Hyperlipidemia 23648536 Active 2024 Garfield Quinonez NP [address] , [place], [address], [place] [facility] 5 09:17:01 Postoperative hypothyroidism 74931876 Active 2024 Garfield Quinonez NP [address] , [place], [address], [place] [facility] 09:17:48 History of cerebrovascula r accident 371257541 Active 2024 Garfield Quinonez NP [address] , [place], [address], [place] [facility] 09:19:05 Problem Notes None recorded. Procedures Surgical History Date Name Laterality Status Provider Name and Address Organization Details Recorded Time Thyroidectomy completed Burke [facility] - [facility] 03/13/2023 10:13:31 Gallbladder Surgery completed Burke [facility] - [facility] 03/13/2023 10:13:58 Hysterectomy completed Burke [facility] 03/13/2023 10:14:03 Appendectomy completed Burke [facility] 03/13/2023 10:14:08 bilateral cataract extraction completed Garfield Quinonez NP [address], [place], [address], [facility] - [facility] 10/08/2024 09:19:37 Imaging Results None recorded. Procedure Notes None recorded. Medical Equipment None Reported. Allergies Allergen ID Allergen Name Allergen Category Reaction Reaction Severity Criticality Documentation Date Start Date Code Code System Note Provider Name and Address Organization Details Recorded Time Ceclor medicatio n Not available Not available Not available 03/13/2023 16028 5 RxNorm Burke quezada, [facility] 3 10:13:01 codeine medicatio n Not available Not available Not available 03/13/2023 2670 RxNorm Burke More [facility], [facility] 3 10:13:06 Medications Name Sig [...] Updated DateTime 10/08/2024 160.02 cm 29.6 kg/m2 56967.93 g Garfield Quinonez NP [address], [place], [address], [facility] 10/08/2024 09:12:56 Social History Question Answer Notes LastModified by [employer] Details LastModified Time Tobacco Smoking Status Current Some Day Smoker Burke Derik quezada, [facility] 03/13/2023 10:13:25 What Is Your Level Of Caffeine Consumption? Moderate [email or web address] Information not available 03/13/2023 How Much Tobacco Do You Smoke? 0.5 PPD [email or web address] Information not available 10/08/2024 Sex: Unknown Functional Status Question Answer Note LastModified by [employer] Details LastModified Time Do you use any illicit or recreational drugs? No [email or web address] Information not available 03/13/2023 Do you or have you ever used any other forms of tobacco or nicotine? No [email or web address] Information not available 03/13/2023 What is your level of alcohol consumption? None [email or web address] Information not available 03/13/2023 Mental Status None recorded. Family History Nothing Reported. Medical History Condition Response Diabetes Y Anxiety Disorder Y Coronary Artery Disease Y Obesity N Other Y Vision or Eye Problems Y Arthritis Y Hyperthyroidism N Congestive Heart Failure (CHF) N Cancer N Stroke Y COPD Y Depression Y Asthma N Hypothyroidism Y Sleep Apnea N High Cholesterol Y Neuropathy N Hypertension Y Kidney Disease N Gynecological HistoryNo gynecological history recorded. Obstetrics History GPAL:G 0 P 0 0 0 0 Past Encounters Encounter ID Performer Location Encounter Start Date Encounter Closed Date Diagnosis/Indication Diagnosis SNOMED-CT Code Diagnosis ICD10 Code Diagnosis Note [id number] Afeni Quinonez, RUBY RAILS DEVELOPER [facility] Schedule [address] [place] [address] 09/12/2024 14:30:22 09/12/2024 14:48:17 Type 2 diabetes mellitus 67329421 E11.65 Type 2 diabetes mellitus 834303 Garfield Quinonez NP [facility] Schedule [address] [place] [address] 09/26/2024 14:24:11 09/26/2024 14:42:18 Type 2 diabetes mellitus 38111856 E11.65 Type 2 diabetes mellitus 097360 Garfield Quinonez NP [facility] Schedule [address] [place] [address] 09/30/2024 11:58:12 09/30/2024 12:00:40 Type 2 diabetes mellitus 33637681 E11.65 Type 2 diabetes mellitus 959747 Garfield Quinonez NP [facility] Schedule [address] [place] [address] 10/08/2024 09:10:56 10/08/2024 09:29:13 Type 2 diabetes mellitus 32375756 E11.65 Diabetes Ongoing Care Plan -Continue RPM [...] recommended by your care team Cassie active Valerie Darrius Information not available 06/04/2023 22:35:30 Blood Glucose [...] ID Guarantor Name 10/08/2024 1 [employer] (MEDICARE REPLACEMENT/A DVANTAGE - PPO) Rox Whitfield [id number] Rox Whitfield Notes Date Note Type Note [...] is located in at time of call: [place] - Patient Location at time of visit: Home If location today is outside the [facility] [place] home address, has patient moved?N/AIf patient has moved, was address updated in [facility]?N/A Recent illnesses or hospitalizations: . Diet:Low [...] hypoglycemic episodes, - wounds or ulcers. Garfield Quinonez, ERROL [address], [place], [address], [place] [facility] 10/08/2024 09:28:49 OBGyn Episode No OBEpisode recorded.
--- OUTSIDE RECORDS SUMMARY | 2024-10-19 15:02 | XMS_ITS | Patient Health Record ---
Author Organization [facility] Billing Info Address [address] [place], [place] [address]g[place]rude [place] [address] Care Team Providers Care Guest Service Manager Name Role Phone MARIA CBEE Primary Care Provider [phone] Allergies Allergen (clinical drug ingredient) Drug/Non Drug [...] Problem Status W/U Status Risk Notes Problem 008266284 Anxious depression (F41.8) Active confirmed Problem 543996826 Chronic pain disorder (G89.4) Active confirmed Problem 10094862 Osteoarthritis, chronic (M19.90) Active confirmed Problem 60246607 Hypothyroidism, iatrogenic (E03.2) Active confirmed Problem 185005003 Insomnia, unspecified type (G47.00) Active confirmed Plan Of Treatment Pending Test Test Name Order Date MAMMOGRAM; SCREENING, BILATERAL (72613) 06/17/2014 - BREAST RIO([facility]) 06/17/2014 Insurance Providers Payer Name Payer Address Payer Phone Subscriber Number Group Number Insured Name Patient Relationship to Insured Coverage Start Date Coverage End Date MEDICARE [place] PART B [address] [place], [place] [id number] Rox Whitfield Self - patient is the insured 9 Medical (General) History Medical History History ICD Code anxious depression hypothyroidism OA CTS R wrist chronic pain syndrome Surgical History Surgery Date(Month/Year) thyroidectomy for goiter appendectomy cholecystectomy DORI - BSO for benign reasons multiple eric with skin grafting 6 Hospitalization History Reason Date(Month/Year) surgeries, as above atypical chest pain/palpitations with ne gative stress testing 2013 Multiple eric to L arm and torso with s kin grafting 09-14-15
--- OUTSIDE RECORDS SUMMARY | 2024-10-19 15:02 | XMS_ITS | Data Portability ---
Author Organization [place] - [facility] - [facility] ADMIN Address [address] [place] [address] Care Team Providers Care Steward/Stewardess Third Name Role Phone RADHA BARKLEY Primary Care [...] abdomen and pelvis with IV contrast at [facility] revealed nodular liver margins indicative of mild/early cirrhosis. Lab workup for viral, metabolic and autoimmune causes of cirrhosis was unremarkable. US abdomen with normal appearing liver then. Repeat CT 03/29/22 showed an ill-defined hypodensity in the central liver, 3 month repeat was recommended. I have scheduled repeat CT per below. [email or web address] Not available 03/06/2023 23:22:54 02/29/2024 02/29/2024 73 [...] abdomen and pelvis with IV contrast at [facility] revealed nodular liver margins indicative of [...] may be eligible for the medication through [employer] patient access support. -Creon samples provided in the office today. If no improvement at follow-up, plan for endoscopic procedures. Not available 02/29/2024 14:47:21 03/26/2024 03/26/2024 73 [...] application for eligibility for the medication through [employer] patient access support. -Additional Creon samples provided in the office today. If no improvement at follow-up, consider endoscopic procedures. [email or web address] Not available 03/26/2024 15:29:14 07/22/2024 07/22/2024 73 [...] a rectocele. -She reports recent MRI at [facility]. I will request those results to send along with her referral. *Regarding chronic pancreatitis: This was mentioned on prior CT, but not subsequent CT. EUS was indeterminate. f/u 6 weeks [email or web address] Not available 07/22/2024 21:09:14 09/01/2024 09/01/2024 74 [...] change her GI symptoms. f/u 3 months. [email or web address] Not available 09/02/2024 21:54:52 Plan of Treatment Reminders Order Date Submit Date Provider Last Modified By Organization Details Last Modified Time Details Appointments Establish ed Visit 15 min 2024 02:30P M Darren Duncan PA-C Not available Not available Not available Lab None recorded. Referral colon & rectal surgeon referral 2024 025 Vanesa Rowley MD, [address], [address], [place], [address], 07/22/2024 21:10:19 Procedures None recorded. Surgeries None recorded. Imaging CT, abdomen, w/wo contrast 2022 023 [email or web address] 4 [facility] (Centralized Scheduling), [address], [place], [address], 04/06/2023 08:41:50 Medication Orders Nexium 20 mg capsule,d elayed release 2024 025 [facility] [employer] #[id number], [address], [id number], 09/01/2024 15:51:47 lubiprost one 24 mcg capsule 2023 024 [place] [facility] [employer] #[id number], [address], [id number], 03/26/2024 14:39:28 Creon 36,000 unit-114, 000 unit-180, 000 unit capsule,d elayed release 2023 024 [employer] [facility] #[id number], [address], [id number], 02/29/2024 10:50:50 Patient TargetsNo targets recorded. Patient Instructions Encounter Date Encounter Id Patient Instructions Last Modified By Organization Details Last Modified Time 03/06/[id number] ABDOMEN AND PELVIS WITH CONTRAST 03/29/22 [...] abdomen with IV contrast in 3 months. [email or web address] Not available 03/06/2023 23:21:06 02/29/[id number] ABDOMEN AND PELVIS WITH CONTRAST 03/29/22 [...] abdomen with IV contrast in 3 months. [email or web address] Not available 02/29/2024 10:19:48 03/26/[id number] ABDOMEN AND PELVIS WITH CONTRAST 03/29/22 [...] abdomen with IV contrast in 3 months. [email or web address] Not available 03/26/2024 14:20:16 07/22/[id number] ABDOMEN AND PELVIS WITH CONTRAST 03/29/22 [...] IV contrast in 3 months. Not available 07/22/2024 12:02:23 Reason for Referral Colon & Rectal Surgeon Refer ral for Disorder of rectum Referring Physician: Darren Duncan, Gastroenterology, Encounter Date: 07/22/2024 Results Created Date Observation Date Name Description Value Unit Range Abnormal Flag Note LastModifiedBy Organization Detail LastModifiedTime 04/02/2004/02/2023 CT [facility] [address] [place] [address] Phone: Fax: Name: MICHELLE WHITFIELD Exam Date: 2022 : 949 Age 72 Gender : F Access ion: [id number] Physic kleber: DARREN DUNCAN Facili [...] for referr ing MIKO MICHELLE Lennie to [facility]. Legall y authen ticate d by POPE SILVIO Huber 2022-05 10:53: 28 CC'ed Logic: Orderi ng Provid er: DANIELLE NORTON Attend ing Provid er: DANIELLE NORTON Admitt ing Provid er: DANIELLE NORTON [email or web address] [facility] - Physical Therapy [address], [place], [address], 04/06/2023 15:37:51 07/25/19 25 04/16/2024 MRI, pelvi s, w/wo contr ast No observ ation record ed. [facility] (Med Record) [address], [place], [address], 07/24/2024 16:53:28 Result Notes None recorded. Problems Name Problem SNOMED Code Status Onset Date Resolution Date Notes Provider Name and Address Organization Details Recorded Time Left sided abdominal pain 872588606 Active 2023 Darren Duncan PA-C [address] , [place], [address] , [place] - [facility] & [place] 4 15:29:23 Disorder of rectum 8698173 Active 2024 Darren Duncan PA-C [address], [place], [address] , [place] [facility] & [place] 5 12:14:59 Upper abdominal pain 68260676 Active 2024 Darren Duncan PA-C [address] , [place], [address] , [place] [facility] & [place] 5 15:49:45 Burning epigastric pain 55627266 Active 2024 Darren Duncan PA-C [address] , [place], [address] , [place] [facility] & [place] 5 17:11:13 Disorder of pancreas 6080880 Active 2024 Darren Duncan PA-C [address] , [place], [address] , [place] [facility] [place] & [place] 5 17:04:58 Vitamin D deficiency 98487435 Active Lux Ward null, [place] [facility] [place] & [place] 2 14:26:26 Senile osteoporos is 61012057 Active Lux Ward null, [place] - [facility] - [place] & [place] 2 14:26:26 Chronic idiopathic constipati on 97333652 Active Lux Everidge null, [place] [facility] [place] & [place] 2 14:26:26 Dyslipidem ia 618967645 Active Lux Everidge [place], [place] [facility] [place] & [place] 2 14:26:26 Mood disorder 85998878 Active Lux Everidge null, [place] - [facility] - [place] & [place] 2 14:26:26 Smoker 53369381 Active Lux Everte null, [place] - [facility] - [place] & [place] 2 14:26:26 Paresthesi a 85929449 Active Lux Everidge null, [place] - [facility] - [place] & [place] 2 14:26:26 History of polyp of colon 715938231 Active Lux Ward null, [place] - [facility] - [place] & [place] 2 14:26:27 Insomnia 650143209 Active Lux Kelleyidge null, [place] - [facility] - [place] & [place] 2 14:26:27 Chronic pancreatit is 010755856 Active Lux Everidge null, [place] [facility] [place] & [place] 2 14:26:27 Nausea 631417501 Active Lux Everidge [place], [place] [facility] [place] & [place] 2 14:26:27 Gastroesop hageal reflux disease 295287353 Active Darren Duncan PA-C [address], [place], [address] , [place] [facility] [place] & [place] 5 15:38:17 Type 2 diabetes mellitus without complicati on 325267720 Active Lux Everidge [place], [place] [facility] [place] & [place] 2 14:26:27 Heterozygo us Factor V Leiden mutation 271663477 Active Lux Ward null, [place] [facility] & [place] 2 14:26:27 Cerebrovas cular accident 203108356 Active Lux Ever[place] [facility] & [place] 2 14:26:27 Abdominal aortic atheroscle rosis 916978000 Active Lux Ever[place] [facility] & [place] 2 14:26:27 Acid reflux 908705511 Active Lux Ever[place] [facility] & [place] 2 14:26:27 Hypothyroi dism 43080086 Active Lux Ever[place] [facility] & [place] 2 14:26:27 Abdominal pain 63197417 Active Lux Ever[place] [facility] & [place] 2 14:26:27 Constipati on 64036794 Active Lux Ever[place] [facility] & [place] 2 14:26:27 Urinary incontinen ce 820340861 Active Lux Ever[place] [facility] & [place] 2 14:26:27 Chronic mood disorder 7384343576263 08 Active 2022 Radha Goldberg MD [address], [place], [address] , [place] [facility] & [place] 3 13:33:16 Anxiety 86755520 Active 2022 Radha Goldberg MD [address], [place], [address] , [place] [facility] & [place] 3 13:33:24 Lesion of liver 341243837 Active 2022 Darren Duncan PA-C [address], [place], [address] , [place] [facility] & [place] 3 15:11:32 Left upper quadrant pain 431175874 Active 2022 Darren Duncan PA-C [address], [place], [address] , [place] [facility] [place] & [place] 3 15:11:39 Abdominal distension , gaseous 831982543 Active 2022 Darren Duncan PA-C [address], [place], [address] , [place] [facility] [place] & [place] 3 15:11:51 Irritable bowel syndrome characteri zed by constipati on 885616207 Active 2022 Darren Duncan PA-C [address], [place], [address] , [place] [facility] & [place] 5 15:52:29 Exocrine pancreatic insufficie [facility] 97305066 Active 2022 Darren Duncan PA-C [address] , [place], [address] , [place] [facility] & [place] 3 15:30:22 Problem Notes None recorded. Procedures Surgical History Date Name Laterality Status Provider Name and Address Organization Details Recorded Time Hysterectomy completed Lux Kelleyte [place] - [facility] & [place] 04/04/2022 14:31:13 Gallbladder Surgery completed Lux Ward [place] - [facility] & [place] 04/04/2022 14:31:18 Appendectomy completed Lux Ward [place] - [facility] & [place] 04/04/2022 14:31:23 Thyroidectomy completed Lux Warrente [place] - [facility] & [place] 04/04/2022 14:31:28 Imaging Results None recorded. Procedure Notes None recorded. Medical Equipment None Reported. Allergies Allergen ID Allergen Name Allergen Category Reaction Reaction Severity Criticality Documentation Date Start Date Code Code System Note Provider Name and Address Organization Details Recorded Time 94487 Ceclor medicatio n Not available Not available Not available 03/10/202210708 5 RxNorm Magy [place], [place] - [facility] - [place] & [place] 2 11:14:09 71342 codeine medicatio n Not available Not available Not available 04/04/2022 2670 RxNorm Lux Kelleyidge null, [place] [facility] [place] & [place] 2 14:26:17 Medications Name Sig Start Date [...] Updated DateTime 5 170.18 cm 25.5 kg/m2 40552.9 2 g 97.9 [degF] 77 /min 72 /min 97 % 97 % 119 mm[Hg] 70 mm[Hg] Maite Chan [facility] & [place] 5 11:45:11 Date Recorded Body height Body mass index (BMI) Body weight Body temperature Heart rate Heart rate Oxygen saturation Oxygen saturation in Arterial blood by Pulse oximetry Systolic blood pressure Diastolic blood pressure Provider Name and Address Organization Details Last Updated DateTime 5 170.18 cm 25.6 kg/m2 29027.3 5 g 97.4 [degF] 80 /min 75 /min 98 % 98 % 106 mm[Hg] 69 mm[Hg] Maite DAVID [facility] & [place] 5 14:52:06 Date Recorded Body height Body mass index (BMI) Body weight Heart rate Heart rate Oxygen saturation Oxygen saturation in Arterial blood by Pulse oximetry Body temperature Systolic blood pressure Diastolic blood pressure Provider Name and Address Organization Details Last Updated DateTime 4 170.18 cm 26.7 kg/m2 85340.4 2 g 77 /min 74 /min 96 % 96 % 98.1 [degF] 169 mm[Hg] 71 mm[Hg] Maite DAVID [facility] & [place] 4 09:42:56 Date Recorded Body height Body mass index (BMI) Body weight Body temperature Heart rate Heart rate Oxygen saturation Oxygen saturation in Arterial blood by Pulse oximetry Systolic blood pressure Diastolic blood pressure Provider Name and Address Organization Details Last Updated DateTime 3 170.18 cm 29.4 kg/m2 80302.9 3 g 97.3 [degF] 76 /min 78 /min 97 % 97 % 147 mm[Hg] 72 mm[Hg] Maite DAVID [facility] & [place] 3 14:11:33 Date Recorded Body height Provider Name an d Address Organization Details Last Updated DateTime 03/08/2023 170.18 cm Adelso DAVID [facility] & [place] 03/08/2023 14:02:55 Date Recorded Body height Body mass index (BMI) Body weight Body temperature Oxygen saturation Oxygen saturation in Arterial blood by Pulse oximetry Heart rate Systolic blood pressure Diastolic blood pressure Provider Name and Address Organization Details Last Updated DateTime 4 170.18 cm 26.6 kg/m2 21529.7 g 96.9 [degF] 95 % 95 % 97 /min 118 mm[Hg] 78 mm[Hg] Adelso DAVID [facility] & [place] 4 13:58:10 Social History Question Answer Notes LastModified by Organizat ion Details LastModified Time Tobacco Smoking Status Current Every Day Smoker Lux quezada JAMAL DAVID [facility] & [place] 04/04/2022 14:30:16 How Much Tobacco Do You [...] Influenza, split virus, quadrivalent, PF 1 completed uLx [place], [place] [facility] [place] & [place] 04/04/2022 14:32:16 COVID-19 vaccine, vector-nr, rS-Ad26, PF, 0.5 mL 1 completed Lux [place], [place] [facility] & [place] 04/04/2022 14:32:16 Pneumococcal conjugate PCV20, polysaccharide HHT385 conjugate, adjuvant, PF 2 completed Lux [place], [place] [facility] [place] & [place] 04/04/2022 14:32:16 COVID-19, mRNA, LNP-S, PF, 30 mcg/0.3 mL dose, marito-sucrose 2 completed Lux Kelleyte [facility], [place] - [facility] & [place] 04/04/2022 14:32:16 Past Encounters Encounter ID Performer Location Encounter Start Date Encounter Closed Date Diagnosis/Indication Diagnosis SNOMED-CT Code Diagnosis ICD10 Code Diagnosis Note [id number] Patrice Miller MD [facility] [address] [facility] [address] [place] [address] 03/10/2022 10:33:26 03/10/2022 12:07:12 Abdominal pain 87760879 R10.9 Chronic id iopathic constipation 04238909 K59.04 Nausea 891541629 R11.0 [id number] Radha Goldberg MD [address] [place] [address] 04/04/2022 14:12:31 04/04/2022 14:53:18 Gastroesophageal reflux disease 230666019 K21.00 Nausea 508916917 R11.0 Major depr essive disorder 989564762 F32.9 Anxiety 25710863 F41.9 [id number] Radha Goldberg MD [address] [place] [address] 05/09/2022 12:50:17 05/09/2022 13:33:30 Anxiety 26906235 F41.9 she is agreeable to trying 1/2 of the 7.5mg tablet once a day to work up to the BID dosing but declines 5mg rx. Mood disorder 56974857 F 37 pt declines any new meds, I provided the number to [facility] and asked that she please call today for an appt Nausea 939200754 R11.0 she asks for refill for prn use Chronic id iopathic constipation 80165901 K59.04 [id number] Pippa Medina MD [facility] [address] [place] [address],[address] [place] [address] 08/24/2022 13:58:50 08/24/2022 14:43:01 Mass of left adrenal gland 6217477634 3706803 E27.8 new left-sided adrenal mass. I have ordered 24 hour urine and plasma labs. I will contact patient with the results. We discussed that small, nonfunctio vane adenomas will likely be followed for a period of time. Functionin g masses or ones that enlarged over time we will require excision, and she would be referred to [facility] for this. [id number] Darren Duncan PA-C [facility] [address] [address] 03/06/2023 13:52:11 03/06/2023 15:22:51 Lesion of liver 775266515 K76.9 Left upper quadrant pain 654994864 R10.12 Abdominal distension, gaseous 221243994 R14.0 Irritable bowel syndrome characterized by constipation 564947837 K58.1 [id number] Darren Duncan PA-C [facility] [address] [address] 02/29/2024 09:30:42 02/29/2024 11:05:29 Lesion of liver 164486029 K76.9 Left upper quadrant pain 102055054 R10.12 Abdominal distension, gaseous 357162685 R14.0 Irritable bowel syndrome characterized by constipation 217801326 K58.1 Chronic pancreatitis 235 890655 K86.1 Exocrine p ancreatic insufficiency 73155890 K86.81 [id number] Darren Duncan PA-C [facility] [address] [address] 03/26/2024 13:47:22 03/26/2024 14:43:37 Chronic pancreatitis 295246293 K86.1 Exocrine p ancreatic insufficiency 95290339 K86.81 Patient has an MRI abd/pelvis scheduled on 04/16 by her PCP at [facility]. Chronic id iopathic constipation 28188285 K59.04 Left sided abdominal pain 302648920 R10.9 [id number] Darren Duncan PA-C [facility] [address] [address] 07/22/2024 11:37:53 07/22/2024 12:29:14 Left sided abdominal pain 145359032 R10.9 Chronic id iopathic constipation 29582927 K59.04 Chronic pancreatitis 235 892904 K86.1 Disorder of rectum 61072 04 N81.6 [id number] Darren Duncan PA-C [facility] [address] [facility] [address] [place] [address] 09/01/2024 14:42:37 09/01/2024 16:11:17 Disorder of rectum 7716633 N81.6 Left sided abdominal pain 356486005 R10.9 Chronic pancreatitis 235 009000 K86.1 Upper abdominal pain 831 81903 R10.10 Irritable bowel syndrome characterized by constipation 473596876 K58.1 Health Concerns Section Related Observation LastModified by Organization Detai ls LastModified Time None Recorded Concern Status LastModified by Organization Details LastModified Time None Recorded Advance Directives Directive None Recorded Payers Insurance Date Sequence Insurance Name Policy Number Policy Gallardo Covered Member ID Gallardo Member ID Guarantor Name 02/29/2024 1 [place] [id number] Rox M Whitfield [id number] Rox Whitfield 02/29/2024 1 [employer] (MEDICARE REPLACEMENT/ ADVANTAGE - PPO) Rox Whitfield [id number] Rox Whitfield 02/29/2024 1 [employer] [place] Rox Whitfield [id number] Rox Whitfield 02/29/2024 3 [employer] (MEDICARE REPLACEMENT/ ADVANTAGE - HMO) Rox M Whitfield [id number] Rox Whitfield 02/29/2024 1 [employer]/ [place] - [place]MO) Rox Whitfield [id number] Rox Whitfield 02/29/2024 1 [place] Rox M Whitfield [id number] Rox Whitfield 02/29/2024 1 [employer] (MEDICARE REPLACEMENT/ ADVANTAGE - HMO) Rox Whitfield [id number] Rox Whitfield 08/29/2024 1 [employer] (MEDICARE REPLACEMENT/ ADVANTAGE - PPO) Rox Whitfield [id number] Rox Whitfield 02/29/2024 1 [employer] (MEDICARE REPLACEMENT/ ADVANTAGE - HMO) Rox M Whitfield [id number] Rox Whitfield 02/29/2024 2 [employer] (MEDICARE REPLACEMENT/ ADVANTAGE - HMO) Rox Whitfield [id number] Rxo Whitfield 02/29/2024 1 [employer] [place] (MEDICAID HMO) Rox Whitfield [id number] Rox Whitfield 02/29/2024 1 [employer] (MEDICARE REPLACEMENT/ ADVANTAGE - HMO) Rox Whitfield [id number] Rox Whitfield Notes Date Note Type Note [...] of a p.o. diet. Darren Duncan PA-C [address], [place], [address] [place] [facility] [place] 03/06/2023 23:23:18 02/29/2024 text/html CURRENT ( 4): [...] overt constipation is noted. Darren Duncan PA-C [address], [place], [address], [facility] & [place] 02/29/2024 14:47:59 03/26/2024 text/html CURRENT ( 4): [...] vomiting, or blood stools. Darren Duncan PA-C [address], [place], [address], [facility] & [place] 03/26/2024 15:30:09 07/22/2024 text/html CURRENT (07/22/24 ): [...] once every few days. Darren Duncan PA-C [address], [place], [address], [facility] - NT [facility] & [place] 07/22/2024 21:10:42 09/01/2024 text/html CURRENT (09/01/24 ): [...] distension in the LLQ. Darren Duncan PA-C [address], [place], [address], [place] [facility] & [place] 09/02/2024 21:55:38 OBGyn Episode No OBEpisode recorded.
--- OUTSIDE RECORDS SUMMARY | 2024-10-19 15:02 | XMS_ITS | Data Portability ---
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 130/80 Not available Not available Not available residential goal of Hemoglobin A1C < 7% Not available Not available Not available residential goal of Glucose, Fasting < 130 Not available Not available Not available residential goal of Glucose, 2 Hour Postprandial < 180 Not available Not available Not available residential goal of LDL Direct < 70 mg/dL Not available Not available Not available 10/08/2024 [id number] Avoidance of hypoglycemia (any glucose <70)Glucose Test Frequency: QD Fasting [email or web address] Not available 10/08/2024 09:24:58 Patient Instructions Encounter Date Encounter Id Patient Instructions Last Modified By Organization Details Last Modified Time 09/01/2024 [id number] Pre-CallReanne marie chandler Pre-call review started at 2024-09-01 15:45 EDT Glucometer Readings: Glucose 7-day fasting average: 120, non-fasting average: undefined Glucose 30-day fasting average: 112, non-fasting average: undefined Review Notes Most recent nurse notes were reviewed. Most recent provider notes were reviewed. Clinical TopicsAsync ReviewNo call was needed.Care Message The member was sent the following care message via [employer] after reviewing their chart: yareli Liriano is [...] with nurse visits. Your Care Team at [facility] is here for your [email or web address] Not available 09/01/2024 15:50:55 09/12/2024 [id number] The member is cu rrently located in [place]. Pre-CallReview Readings Pre-call review started at 2024-09-12 [...] Confirmation The member is currently located in [place]. The member is willing and able to complete the call. Clinical ReviewMember Readings Members readings were reviewed with the member Member Health Updates Member reported allergy and/or medication changes Notes: Feeling weak since yesterday. Updated [place] with med change. Has had UTI sx [...] minutes. [email or web address] Not available 09/12/2024 14:48:16 09/26/2024 [id number] The member is cu [place]rently located in [place]. Pre-CallReview Readings Pre-call review started at 2024-09-26 [...] Confirmation The member is currently located in [place]. The member is willing and able to complete the call. Clinical ReviewMember Readings Members readings were reviewed with the member Member Health Updates Member reported allergy and/or medication changes Notes: Feeling better. Med changes added to [place]. Member Height and Weight Weight: 163 Clinical [...] minutes. [email or web address] Not available 09/26/2024 14:42:17 09/30/2024 [id number] Pre-CallReview Kavon chandler Pre-call review started at [...] minutes. [email or web address] Not available 09/30/2024 12:00:39 10/08/2024 [id number] Ms. Whitfield is a(n ) 74 year [...] the [place]. Does the member have the [employer] denis downloaded? No, member declined Next [place] [...] Details Recorded Time Type 2 diabetes mellitus 70050363 Active 2022 ANGELICA DOMINGUEZ SECORY null, [place] - [facility] 3 10:32:52 Essential hypertension 44584572 Active 2022 ANGELICA DOMINGUEZ SECORY [place] [facility] 3 10:32:49 Osteoporosis 40331564 Active 2022 Kassandra Weston null[place] - [facility] 3 13:23:41 Osteoarthritis 177923342 Active 2022 Kassandra Weston [place] [facility] 3 13:23:50 Spinal stenosis 34698492 Active 2022 Kassandra Weston null, [place] - [facility] 3 13:24:00 Diabetes mellitus 96029032 Active 2022 ANGELICA DOMINGUEZ SECORY [place], [place] [facility] 3 15:35:53 Anxiety 34382387 Active 2024 Garfield Quinonez NP [address] , [place], [address], [place] [facility] 5 09:13:57 Pulmonary emphysema 29237262 Active 2024 Garfield Quinonez NP [address] , [place], [address], [place] [facility] 5 09:14:23 Coronary arterioscleros is 83426370 Active 2024 Garfield Quinonez NP [address] , [place], [address], [place] [facility] 5 09:16:09 Atrial fibrillation 27847637 Active 2024 Garfield Quinonez NP [address] , [place], [address], [place] [facility] 5 09:16:19 Depressive disorder 89681562 Active 2024 Garfield Quinonez NP [address] , [place], [address], [place] [facility] 09:16:44 Hyperlipidemia 71795281 Active 2024 Garfield Quinonez NP [address] , [place], [address], [place] [facility] 5 09:17:01 Postoperative hypothyroidism 41210001 Active 2024 Garfield Quinonez NP [address] , [place], [address], [place] [facility] 5 09:17:48 History of cerebrovascula r accident 949174661 Active 2024 Garfield Quinonez NP [address] , [place], [address], [place] [facility] 09:19:05 Problem Notes None recorded. Procedures Surgical History Date Name Laterality Status Provider Name and Address Organization Details Recorded Time [facility] 10:13:31 [facility] 10:13:58 [facility] 10:14:03 Appendectomy completed Burke More [facility] 03/13/2023 10:14:08 bilateral cataract extraction completed Garfield Quinonez, ERROL [address], [place], [address], [facility] 10/08/2024 09:19:37 Imaging Results None recorded. Procedure Notes None recorded. Medical Equipment None Reported. Allergies Allergen ID Allergen Name Allergen Category Reaction Reaction Severity Criticality Documentation Date Start Date Code Code System Note Provider Name and Address Organization Details Recorded Time Ceclor medicatio n Not available Not available Not available 03/13/2023 61896 5 [facility] 3 10:13:01 codeine medicatio n Not available Not available Not available 03/13/2023 2670 [facility]Norm [facility] 10:13:06 Medications Name [...] Updated DateTime 10/08/2024 160.02 cm 29.6 kg/m2 37509.93 g Garfield Quinonez, ERROL [address], [place], [address], [facility] 10/08/2024 09:12:56 Social History Question Answer Notes LastModified by [employer] Details LastModified Time Tobacco Smoking Status Current Some Day Smoker Burke quezada, [facility] 03/13/2023 10:13:25 What Is Your Level Of Caffeine Consumption? Moderate [email or web address] Information not available 03/13/2023 How Much Tobacco Do You Smoke? 0.5 PPD [email or web address] Information not available 10/08/2024 Sex: Unknown Functional Status Question Answer Note LastModified by [employer] Details LastModified Time Do you use any illicit or recreational drugs? No [email or web address] Information not available 03/13/2023 Do you or have you ever used any other forms of tobacco or nicotine? No [email or web address] Information not available 03/13/2023 What is your level of alcohol consumption? None [email or web address] Information not available 03/13/2023 Mental Status None [...] SNOMED-CT Code Diagnosis ICD10 Code Diagnosis Note [id number] Char Rosales NP PS_Provid er Schedule [address] [place] [address] 03/13/2023 10:08:48 03/13/2023 10:44:44 Type 2 diabetes mellitus 28707099 E11.65 Essential hypertension 96720989 I10 845987 ERROL Hernandez_Nursin g Schedule [address] [place] [address] 03/22/2023 13:09:28 03/22/2023 13:55:50 Diabetes mellitus 24233667 E11.9 745778 ERROL Hernandez_Nursin g Schedule [address] [place] [address] 04/06/2023 16:03:28 04/12/2023 14:07:57 Diabetes mellitus 34144373 E11.9 692202 ERROL Hernandez_Nursin g Schedule [address] [place] [address] 06/04/2023 17:19:49 06/04/2023 17:37:56 Type 2 diabetes mellitus 11275441 E11.65 417854 ERROL HOWE_Nursin g Schedule [address] [place] [address] 06/18/2023 15:36:21 06/18/2023 15:53:52 Type 2 diabetes mellitus 65087787 E11.65 767735 ROCHELLE PINO NP [facility]Provid er Schedule [address] [place] [address] 06/26/2023 14:25:55 06/26/2023 14:49:00 Type 2 diabetes mellitus 41345372 E11.65 -Continue the following medication s as [...] vegetables /fruits, and high-fiber carbohydra te sources. 390400 ERROL HOWE_Nursin g Schedule [address] [place] [address] 07/16/2023 15:29:20 07/16/2023 15:47:24 Diabetes mellitus 90306764 E11.9 639462 ERROL HOWE_Nursin g Schedule [address] [place] [address] 07/30/2023 15:35:00 07/30/2023 15:43:26 Diabetes mellitus 85124478 E11.9 832066 ERROL HOWE_Nursin g Schedule [address] [place] [address] 08/14/2023 13:17:28 08/14/2023 13:25:01 306243 ERROL HOWE_Nursin g Schedule [address] [place] [address] 08/31/2023 13:59:10 08/31/2023 14:16:34 [id number] ERROL HOWE_Nursin g Schedule [address] [place] [address] 10/12/2023 13:52:07 10/12/2023 14:06:29 063302 ERROL HOWE_Nursin g Schedule [address] [place] [address] 10/26/2023 13:34:59 10/26/2023 13:49:01 Diabetes mellitus 78459750 E11.9 210759 ERROL Wells_Nursin g Schedule [address] [place] [address] 11/09/2023 15:07:52 11/09/2023 15:21:23 Type 2 diabetes mellitus 65538305 E11.65 238309 Garfield Quinonez NP [facility]Nursin g Schedule [address] [place] [address] 11/23/2023 14:00:07 11/23/2023 14:04:24 Type 2 diabetes mellitus 61342575 E11.65 125098 Garfield Quinonez NP [facility]Nursin g Schedule [address] [place] [address] 12/21/2023 11:30:27 12/21/2023 11:36:39 Type 2 diabetes mellitus 06049873 E11.65 628991 LOGAN COOPER NP [facility]urs[facility] Schedule [address] [place] [address] 02/15/2024 14:21:26 02/15/2024 14:29:13 Diabetes mellitus 27693425 E11.9 187262 Garfield Quinonez NP [facility]Nursin g Schedule [address] [place] [address] 02/29/2024 14:14:51 02/29/2024 14:24:57 Essential hypertension 68677507 I10 443743 Garfield Quinonez NP [facility]Nursin g Schedule [address] [place] [address] 03/14/2024 14:21:25 03/14/2024 14:35:03 Diabetes mellitus 46089984 E11.9 842467 Garfield Quinonez NP [facility]Nursin g Schedule [address] [place] [address] 03/28/2024 14:35:21 03/28/2024 14:51:24 Diabetes mellitus 59896013 E11.9 Diabetes mellitus Type 2 serafin betes mellitus 52902302 E11.65 Type 2 diabetes mellitus Essential hypertension 17152113 I10 Essential hypertensi on 529067 Garfield Quinonez NP [facility]Nursin g Schedule [address] [place] [address] 04/11/2024 14:25:02 04/11/2024 14:30:26 Type 2 diabetes mellitus 17386097 E11.65 Type 2 diabetes mellitus 808294 Garfield Quinonez NP [facility]Nursin g Schedule [address] [place] [address] 04/15/2024 15:09:24 04/15/2024 15:13:52 Diabetes mellitus 99362938 E11.9 Diabetes mellitus Type 2 serafin betes mellitus 50398844 E11.65 Type 2 diabetes mellitus Essential hypertension 61284433 I10 Essential hypertensi on 308459 Garfield Quinonez NP [facility]Nursin g Schedule [address] [place] [address] 04/25/2024 14:18:17 04/25/2024 14:33:54 Type 2 diabetes mellitus 59752683 E11.65 Type 2 diabetes mellitus 114553 Garfield Quinonez NP [facility]Nursin [facility] Schedule [address] [place] [address] 05/09/2024 14:50:04 05/09/2024 15:06:31 Diabetes mellitus 29269604 E11.9 Diabetes mellitus 215838 Garfield Quinonez NP [facility]Nursin g Schedule [address] [place] [address] 05/23/2024 14:11:17 05/23/2024 14:19:40 Type 2 diabetes mellitus 43677394 E11.65 Type 2 diabetes mellitus 111631 Garfield Quinonez NP [facility]Nursin [facility] Schedule [address] [place] [address] 06/06/2024 14:30:40 06/06/2024 14:55:25 Diabetes mellitus 02995699 E11.9 Diabetes mellitus Type 2 serafin betes mellitus 97947429 E11.65 Type 2 diabetes mellitus Essential hypertension 74614346 I10 Essential hypertensi on 709983 Garfield Quinonez NP [facility]Nursin g Schedule [address] [place] [address] 06/20/2024 14:32:39 06/20/2024 14:47:15 Type 2 diabetes mellitus 16800580 E11.65 Type 2 diabetes mellitus 225576 Garfield Quinonez NP [facility]Nursin g Schedule [address] [place] [address] 07/04/2024 14:16:09 07/04/2024 14:33:03 Type 2 diabetes mellitus 99712836 E11.65 Type 2 diabetes mellitus 038578 Garfield Quinonez NP [facility]Nursin g Schedule [address] [place] [address] 07/18/2024 14:05:13 07/18/2024 14:10:56 Type 2 diabetes mellitus 89357028 E11.65 Type 2 diabetes mellitus 930253 Garfield Quinonez NP [facility]Nursin g Schedule [address] [place] [address] 08/01/2024 14:35:03 08/01/2024 14:39:26 Type 2 diabetes mellitus 19114317 E11.65 Type 2 diabetes mellitus 162383 Garfield Quinonez NP [facility]Nursin g Schedule [address] [place] [address] 08/15/2024 14:26:22 08/15/2024 14:42:23 Type 2 diabetes mellitus 91348093 E11.65 Type 2 diabetes mellitus 582449 Garfield Quinonez NP [facility]Nursin g Schedule [address] [place] [address] 08/29/2024 14:34:14 08/29/2024 14:52:41 Diabetes mellitus 86240843 E11.9 Diabetes mellitus 654444 Garfield Quinonez NP [facility]Nursin g Schedule [address] [place] [address] 08/29/2024 16:25:25 08/29/2024 16:44:57 Diabetes mellitus 43890226 E11.9 Diabetes mellitus Type 2 serafin betes mellitus 65226946 E11.65 Type 2 diabetes mellitus Essential hypertension 32700789 I10 Essential hypertensi on 024504 Garfield Quinonez NP [facility]Nursin g Schedule [address] [place] [address] 09/01/2024 15:45:13 09/01/2024 15:50:55 Diabetes mellitus 86763151 E11.9 Diabetes mellitus 068366 Garfield Quinonez NP NS[facility]Nursin g Schedule [address] [place] [address] 09/12/2024 14:30:22 09/12/2024 14:48:17 Type 2 diabetes mellitus 75693091 E11.65 Type 2 diabetes mellitus 509524 ERROL Wells_Nursin g Schedule [address] [place] [address] 09/26/2024 14:24:11 09/26/2024 14:42:18 Type 2 diabetes mellitus 88022346 E11.65 Type 2 diabetes mellitus 803930 ERROL Wells_Nursin g Schedule [address] [place] [address] 09/30/2024 11:58:12 09/30/2024 12:00:40 Type 2 diabetes mellitus 37154329 E11.65 Type 2 diabetes mellitus 840993 Garfield Quinonez NP [facility]Provid er Schedule [address] [place] [address] 10/08/2024 09:10:56 10/08/2024 09:29:13 Type 2 diabetes mellitus 60578596 E11.65 Diabetes Ongoing Care Plan -Continue RPM [...] (MEDICARE REPLACEMENT/ADVA NTAGE - PPO) Rox Whitfield [id number] Rox Whitfield 03/14/2024 1 [employer] [employer] (MEDICARE REPLACEMENT/ADVA NTAGE - HMO) [id number] Rox Whitfield [id number] Rox [place] Notes Date Note Type [...] is located in at time of call: [place] - Patient Location at time of visit: Home If location today is outside the state in [place] home address, has patient moved?N/AIf patient has moved, was address updated in [facility]?N/A Recent illnesses or hospitalizations: . Diet:Low Carb, [...] Quinonez NP [address], [place], [address], [facility] - [facility] 10/08/2024 09:28:49 OBGyn Episode No OBEpisode recorded.
--- OUTSIDE RECORDS SUMMARY | 2024-10-19 15:02 | XMS_ITS | Continuity of Care Document ---
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 Pre-CallReview Readings Pre-call review started at 2024-09-12 [...] Confirmation The member is currently located in [place]. The member is willing and able to complete the call. Clinical ReviewMember Readings Members readings were reviewed with the member Member Health Updates Member reported allergy and/or medication changes Notes: Feeling weak since yesterday. Updated [place] with med change. Has had UTI sx [...] 18 minutes. [email or web address] Not available 09/12/2024 14:48:16 Reason for Referral None Reported. Problems Name Problem SNOMED Code Status Onset Date Resolution Date Notes Provider Name and Address Organization Details Recorded Time Type 2 diabetes mellitus 05943326 Active 2022 ANGELICA DOMINGUEZ SECORY null, [place] - [facility] 3 10:32:52 Essential hypertension 17218270 Active 2022 ANGELICA DOMINGUEZ SECORY null, [place] - [facility] 3 10:32:49 Osteoporosis 05142810 Active 2022 Kassandra Weston null, [place] - [facility] 3 13:23:41 Osteoarthritis 126900999 Active 2022 Kassandra Weston null, [place] - [facility] 3 13:23:50 Spinal stenosis 32958581 Active 2022 Kassandra Weston null, [place] - [facility] 3 13:24:00 Diabetes mellitus 88419685 Active 2022 ANGELICA DOMINGUEZ SECORY null, [place] - [facility] 3 15:35:53 Anxiety 48651319 Active 2024 Garfield Quinonez NP [address] , [place], [address], [place] [facility] 5 09:13:57 Pulmonary emphysema 97864032 Active 2024 Garfield Quinonez NP [address] , [place], [address], [place] [facility] 5 09:14:23 Coronary arterioscleros is 96268263 Active 2024 Garfield Quinonez NP [address] , [place], [address], [place] [facility] 5 09:16:09 Atrial fibrillation 61454446 Active 2024 Garfield Quinonez NP [address] , [place], [address], [place] - [facility] 5 09:16:19 Depressive disorder 03860839 Active 2024 Garfield Quinonze NP [address] , [place], [address], [place] [facility] 5 09:16:44 Hyperlipidemia 15921229 Active 2024 Garfield Quinonez NP [address] , [place], [address], [facility] 5 09:17:01 Postoperative hypothyroidism 66158898 Active 2024 Garfield Quinonez NP [address] , [place], [address], [place] [facility] 5 09:17:48 History of cerebrovascula r accident 031125755 Active 2024 Garfield Quinonez NP [address] , [place], [address], [place] - [facility] 5 09:19:05 Problem Notes None recorded. Procedures Surgical History Date Name Laterality Status Provider Name and Address Organization Details Recorded Time [facility] 10:13:31 [facility]/13[facility]2023 10:13:58 [facility] 03/13/2023 10:14:03 Appendectomy completed [facility] 03/13/2023 10:14:08 bilateral cataract extraction completed Garfield Quinonez, ERROL [address], [place], [address], [facility] 10/08/2024 09:19:37 Imaging Results None recorded. Procedure Notes None recorded. Medical Equipment None Reported. Allergies Allergen ID Allergen Name Allergen Category Reaction Reaction Severity Criticality Documentation Date Start Date Code Code System Note Provider Name and Address Organization Details Recorded Time Ceclor medicatio n Not available Not available Not available 03/13/202385437 5 [facility] 3 10:13:01 99412 codeine medicatio n Not available Not available Not available 03/13/2023 2670 [facility] 10:13:06 Medications Name Sig Start [...] Social History Question Answer Notes LastModified by [employer] Details LastModified Time Tobacco Smoking Status Current Some Day Smoker Burke More [facility] 03/13/2023 10:13:25 What Is Your Level Of Caffeine Consumption? Moderate [email or web address] Information not available 03/13/2023 How Much Tobacco Do You Smoke? 0.5 PPD Information not available 10/08/2024 Sex: Unknown Functional Status Question Answer Note LastModified by Organizat ion Details LastModified Time Do you use any illicit or recreational drugs? No [email or web address] Information not available 03/13/2023 Do you or have you ever used any other forms of tobacco or nicotine? No [email or web address] Information not available 03/13/2023 What is your level of alcohol consumption? None [email or web address] Information not available 03/13/2023 Mental Status None [...] SNOMED-CT Code Diagnosis ICD10 Code Diagnosis Note 181696 ERROL Wells_Nursin g Schedule [address] [place] [address] 08/15/2024 14:26:22 08/15/2024 14:42:23 Type 2 diabetes mellitus 25240433 E11.65 Type 2 diabetes mellitus 360723 Garfield Quinonez NP NS_Nursin g Schedule [address] [place] [address] 08/29/2024 14:34:14 08/29/2024 14:52:41 Diabetes mellitus 09077376 E11.9 Diabetes mellitus 508502 Garfield Quinonez NP NS_Nursin g Schedule [address] [place] [address] 08/29/2024 16:25:25 08/29/2024 16:44:57 Diabetes mellitus 52069735 E11.9 Diabetes mellitus Type 2 serafin betes mellitus 36403914 E11.65 Type 2 diabetes mellitus Essential hypertension 84881302 I10 Essential hypertensi on 284113 ERROL Wells_Nursin g Schedule [address] [place] [address] 09/01/2024 15:45:13 09/01/2024 15:50:55 Diabetes mellitus 03217642 E11.9 Diabetes mellitus 793685 Garfield Quinonez NP NS_Nursin g Schedule [address] [place] [address] 09/12/2024 14:30:22 09/12/2024 14:48:17 Type 2 diabetes mellitus 84369629 E11.65 Type 2 diabetes mellitus Goals Section [...] Member ID Gallardo Member ID Guarantor Name 09/12/2024 1 [employer] (MEDICARE REPLACEMENT/A DVANTAGE - PPO) Rox Whitfield [id number] Rox Whitfield OBGyn Episode No OBEpisode recorded.
--- OUTSIDE RECORDS SUMMARY | 2024-10-19 15:02 | XMS_ITS | Continuity of Care Document ---
Author Organization [place] [facility] Schedule Address [address] [place] [address] Care Team Providers Care [employer]re [employer] Drier Name Role Phone CARMINA MASONHEN Primary Care [...] Modified By Organization Details Last Modified Time 09/30/2024 [id number] Pre-CallReanne marie chandler Pre-call review started at 2024-09-30 11:58 [...] 4 minutes. [id number] Not available 09/30/2024 12:00:39 Reason for Referral None Reported. Problems Name Problem SNOMED Code Status Onset Date Resolution Date Notes Provider Name and Address Organization Details Recorded Time Type 2 diabetes mellitus 36308531 Active 2022 ANGELICA DOMINGUEZ SECORY null, [place] - [facility] 3 10:32:52 Essential hypertension 75692695 Active 2022 ANGELICA DOMINGUEZ SECRY null, [place] - [facility] 3 10:32:49 Osteoporosis 32271959 Active 2022 Kassandraemely Weston null, [place] - [facility] 3 13:23:41 Osteoarthritis 523789496 Active 2022 Kassandra Weston null, [place] - [facility] 3 13:23:50 Spinal stenosis 51408015 Active 2022 Kassandra Weston null, [place] - [facility] 3 13:24:00 Diabetes mellitus 51486082 Active 2022 ANGELICA DOMINGUEZ SECRY null, [place] - [facility] 3 15:35:53 Anxiety 16427413 Active 2024 Garfield Quinonez NP [address] , [place], [address], [place] - [facility] 5 09:13:57 Pulmonary emphysema 12168213 Active 2024 Garfield Quinonez NP [address] , [place], [address], [place] [facility] 5 09:14:23 Coronary arterioscleros is 98062400 Active 2024 Garfield Quinonez NP [address] , [place], [address], [place] [facility] 5 09:16:09 Atrial fibrillation 29565842 Active 2024 Garfield Quinonez NP [address] , [place], [address], [place] [facility] 09:16:19 Depressive disorder 60524174 Active 2024 Garfield Quinonez NP [address] , [place], [address], [facility] 09:16:44 Hyperlipidemia 27601730 Active 2024 Garfield Quinonez NP [address] , [place], [address], [facility] 5 09:17:01 Postoperative hypothyroidism 22823794 Active 2024 Garfield Quinonez NP [address] , [place], [address], [facility] 5 09:17:48 History of cerebrovascula r accident 433966385 Active 2024 Garfield Quinonez NP [address] , [place], [place], [address] [place] [address] 6, [facility] 09:19:05 Problem Notes None recorded. Procedures Surgical History Date Name Laterality Status Provider Name and Address Organization Details Recorded Time [facility] 10:13:31 [facility] 10:13:58 [facility] 10:14:03 [facility] 10:14:08 bilateral cataract extraction completed Garfield Quinonez NP [address], [place], [address], [facility] 10/08/2024 09:19:37 Imaging Results None recorded. Procedure Notes None recorded. Medical Equipment None Reported. Allergies Allergen ID Allergen Name Allergen Category Reaction Reaction Severity Criticality Documentation Date Start Date Code Code System Note Provider Name and Address Organization Details Recorded Time Ceclor medicatio n Not available Not available Not available 03/13/2023 5 RxNorm Burke [facility], [place] [facility] 10:13:01 codeine medicatio n Not available Not available Not available 03/13/2023 2670 RxNorm Burke More null, [place] - [facility] 3 10:13:06 Medications Name Sig [...] Status Current Some Day Smoker Burke More [place], [place] - [facility] 03/13/2023 10:13:25 What Is Your Level Of Caffeine Consumption? Moderate [email or web address] Information not available 03/13/2023 How Much Tobacco Do You Smoke? 0.5 PPD [email or web address] Information not available 10/08/2024 Sex: Unknown Functional Status Question Answer Note LastModified by Organizat ion Details LastModified Time Do you use any illicit or recreational drugs? No [email or web address] Information not available 03/13/2023 Do you or have you ever used any other forms of tobacco or nicotine? No [email or web address] Information not available 03/13/2023 What is your level of alcohol consumption? None [email or web address] Information not available 03/13/2023 Mental Status None [...] SNOMED-CT Code Diagnosis ICD10 Code Diagnosis Note [id number] [facility] [address] [place] [address] 09/01/2024 15:45:13 09/01/2024 15:50:55 Diabetes mellitus 84951472 E11.9 Diabetes mellitus 777019 [facility] [address] [place] [address] 09/12/2024 14:30:22 09/12/2024 14:48:17 Type 2 diabetes mellitus 08322533 E11.65 Type 2 diabetes mellitus 185799 [facility] [address] [place] [address] 09/26/2024 14:24:11 09/26/2024 14:42:18 Type 2 diabetes mellitus 64185159 E11.65 Type 2 diabetes mellitus 564029 [facility] Schedule [address] [place] [address] 09/30/2024 11:58:12 09/30/2024 12:00:40 Type 2 diabetes mellitus 63250927 E11.65 Type 2 diabetes mellitus Goals Section [...] Member ID Gallardo Member ID Guarantor Name 09/30/2024 1 [employer] (MEDICARE REPLACEMENT/A DVANTAGE - PPO) Rox Whitfield [id number] Rox Whitfield OBGyn Episode No OBEpisode recorded.
--- OUTSIDE RECORDS SUMMARY | 2024-10-19 15:03 | XMS_ITS | Continuity of Care Document ---
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 Since your last visit, your readings [...] Details Recorded Time Type 2 diabetes mellitus 89772123 Active 2022 ANGELICA DOMINGUEZ SECORY null, [place] - [facility] 3 10:32:52 Essential hypertension 67937834 Active 2022 ANGELICA DOMINGUEZ SECORY [place], [place] [facility] 3 10:32:49 Osteoporosis 73273597 Active 2022 Kassandra Weston null, [place] - [facility] 3 13:23:41 Osteoarthritis 300998082 Active 2022 Kassandra Weston [place], [place] - [facility] 3 13:23:50 Spinal stenosis 79812106 Active 2022 Kassandra Weston null, [place] - [facility] 3 13:24:00 Diabetes mellitus 22331793 Active 2022 ANGELICA DOMINGUEZ SECORY null, [place] - [facility] 3 15:35:53 Anxiety 82065070 Active 2024 Garfield Quinonez NP [address] , [place], [address] [place] - [facility] 5 09:13:57 Pulmonary emphysema 88752916 Active 2024 Garfield Quinonez NP [address] , [place], [address], [place] [facility] 09:14:23 Coronary arterioscleros is 84822191 Active 2024 Garfield Quinonez NP [address] , [place], [address], [place] [facility] 5 09:16:09 Atrial fibrillation 48953711 Active 2024 Garfield Quinonez NP [address] , [place], [address], [place] [facility] 5 09:16:19 Depressive disorder 67134046 Active 2024 Garfield Quinonez NP [address] , [place], [address], [place] [facility] 09:16:44 Hyperlipidemia 15862291 Active 2024 Garfield Quinonez NP [address] , [place], [address], [place] [facility] 5 09:17:01 Postoperative hypothyroidism 86682262 Active 2024 Garfield Quinonez NP [address] , [place], [address], [place] [facility] 5 09:17:48 History of cerebrovascula r accident 000081240 Active 2024 Garfield Quinonez NP [address] , [place], [address], [place] [facility] 5 09:19:05 Problem Notes None recorded. Procedures Surgical History Date Name Laterality Status Provider Name and Address Organization Details Recorded Time Thyroidectomy completed Burke Angelaers [place] - [facility] 03/13/2023 10:13:31 Gallbladder Surgery completed Burke Derik [place] - [facility] 03/13/2023 10:13:58 Hysterectomy completed Burkeelgin More [facility] 03/13/2023 10:14:03 Appendectomy completed Burke More [facility] 03/13/2023 10:14:08 bilateral cataract extraction completed Garfield Quinonez NP [address], [place], [address], [facility] 10/08/2024 09:19:37 Imaging Results None recorded. Procedure Notes None recorded. Medical Equipment None Reported. Allergies Allergen ID Allergen Name Allergen Category Reaction Reaction Severity Criticality Documentation Date Start Date Code Code System Note Provider Name and Address Organization Details Recorded Time Ceclor medicatio n Not available Not available Not available 03/13/202382482 5 RxNorm Burke More [facility] 3 10:13:01 codeine medicatio n Not available Not available Not available 03/13/2023 2670 RxNorm Burke More [facility] 3 10:13:06 Medications Name Sig Start Date [...] Social History Question Answer Notes LastModified by [email or web address] ion Details LastModified Time Tobacco Smoking Status Current Some Day Smoker Burke More [facility] 03/13/2023 10:13:25 What Is Your Level Of Caffeine Consumption? Moderate [email or web address] Information not available 03/13/2023 How Much Tobacco Do You Smoke? 0.5 PPD [email or web address] Information not available 10/08/2024 Sex: Unknown Functional Status Question Answer Note LastModified by Organizat ion Details LastModified Time Do you use any illicit or recreational drugs? No Information not available 03/13/2023 Do you or have you ever used any other forms of tobacco or nicotine? No [email or web address] Information not available 03/13/2023 What is your level of alcohol consumption? None [email or web address] Information not available 03/13/2023 Mental Status None [...] SNOMED-CT Code Diagnosis ICD10 Code Diagnosis Note [id number] Garfield Quinonez NP [facility] [address] [place] [address] 08/01/2024 14:35:03 08/01/2024 14:39:26 Type 2 diabetes mellitus 97599031 E11.65 Type 2 diabetes mellitus 972809 Garfield Quinonez NP [facility] [address] [place] [address] 08/15/2024 14:26:22 08/15/2024 14:42:23 Type 2 diabetes mellitus 34220578 E11.65 Type 2 diabetes mellitus 838590 Garfield Quinonez NP [facility] [address] [place] [address] 08/29/2024 14:34:14 08/29/2024 14:52:41 Diabetes mellitus 89281473 E11.9 Diabetes mellitus 654220 Garfield Quinonez NP [facility] [address] [place] [address] 08/29/2024 16:25:25 08/29/2024 16:44:57 Diabetes mellitus 66703076 E11.9 Diabetes mellitus Type 2 serafin betes mellitus 26177761 E11.65 Type 2 diabetes mellitus Essential hypertension 59873276 I10 Essential hypertensi on 107457 Garfield Quinonez NP [facility] [address] [place] [address] 09/01/2024 15:45:13 09/01/2024 15:50:55 Diabetes mellitus 60230235 E11.9 Diabetes mellitus Goals Section Goal Description [...] (MEDICARE REPLACEMENT/A DVANTAGE - PPO) Rox Whitfield [id number] Rox Whitfield OBGyn Episode No OBEpisode recorded.
[2024-10-19] MEDS: ONDANSETRON 4MG/2ML VIAL 4 MG IV (15:09)
[2024-10-19] MEDS: MORPHINE 4MG/ML SYRINGE 4 MG IV (15:09)
[2024-10-19 15:11] LABS: Basophils % 0.8 % (0.1-2.0); Eosinophils # 0.1 Kmm3 (0.0-0.4); Eosinophils % 1.7 % (0.1-12.0); Hematocrit 33.1 % (37.0-47.0); Hemoglobin 10.7 g/dL (12.2-16.2); Immature Granulocytes # 0.01 10^3uL; Immature Granulocytes % 0.2 %; Lymphocytes # 2.1 K/mm3 (0.7-4.5); Lymphocytes % 40.5 % (10-50); Mean Corpuscular HGB Conc 32.3 g/dL (31.8-35.4); Mean Corpuscular Hemoglobin 30.7 pg (27.0-31.2); Mean Corpuscular Volume 95.1 fl (81-99); Mean Platelet Volume 9.4 fl (7.4-10.4); Monocytes # 0.4 K/mm3 (0.1-1.0); Neutrophils # 2.6 K/mm3 (1.8-7.8); Neutrophils % 49.8 % (37.0-80.0); Nucleated Red Blood Cells # 0 10^3/uL; Nucleated Red Blood Cells % 0 %; Platelet Count 239 K/mm3 (142-424); Red Blood Count 3.48 M/mm3 (4.20-5.40); Red Cell Distribution Width 13.2 % (11.5-17.5); Red Cell Distribution Width-SD 46.4 fL; White Blood Count 5.3 K/mm3 (4.8-10.8)
[2024-10-19 15:13] LABS: Albumin Level 4.4 g/dl (3.5-5.0); Chloride 100 mmol/L (98-107); Potassium 3.7 mmoL/L (3.5-5.1); Sodium 138 mmol/L (136-145)
[2024-10-19 15:15] LABS: Lipase 25 U/L (23-300)
[2024-10-19 15:16] LABS: Alanine Aminotransferase 17 U/L (12-78); Albumin/Globulin Ratio 1.3 (1.1-1.8); Alkaline Phosphatase 70 U/L (38-126); Anion Gap 9.7 mEq/L (5-15); Aspartate Amino Transferase 32 U/L (14-36); Bilirubin,Total 0.4 mg/dl (0.2-1.3); Blood Urea Nitrogen 11 mg/dl (7-17); Calcium 9.4 mg/dl (8.4-10.2); Carbon Dioxide 32 mmol/L (22.0-30.0); Creatinine Clearance Estimated 55 mL/min (50-200); Estimated Glomerular Filt Rate 61 ml/min (>60); GFR (African American) 74 ML/MIN (>60); Globulin 3.5 g/dL (1.3-3.2); Glucose 100 mg/dl (74-100); Total Protein,Serum 7.9 g/dl (6.3-8.2)
[2024-10-19 15:29] LABS: Microscopic, Urine URINE MICROSCOPIC (MICROSCOPIC)
[2024-10-19 15:34] LABS: Appearance,Urine CLEAR (Clear); Bilirubin,Urine Negative (Negative); Blood, Urine Negative (Negative); Color,Urine YELLOW (Yellow); Glucose,Urine (UA) Negative (Negative); Ketones,Urine Negative (Negative); Leukocyte Esterase,Urine TRACE (Negative); Nitrate,Urine Negative (Negative); PH,Urine 8.5 (5.0-8.5); Protein,Urine Negative (Negative); Urobilinogen,Urine 0.2 EU/dl (0.2)
--- NOTE | 2024-10-19 15:39 | PC.NURSE ---
pt going for CT at this time with RAD via bed
[2024-10-19] MEDS: SODIUM CHLORIDE 0.9% 10ML SYR (RAD ONLY) 10 ML IV (15:44)
[2024-10-19] MEDS: IOPAMIDOL-370 (76%);100ML BOTTLE 75 ML IV (15:44)
[2024-10-19 15:46] LABS: WBC,Urine Occasional #/hpf (0-3)
[2024-10-19] MEDS: HYDROMORPHONE 2MG/ML SYRINGE 0.5 MG IV (16:00)
--- NOTE | 2024-10-19 16:08 | PC.NURSE ---
purewick placed at this time
== END 2024-10-19 17:44 | disposition home or self-care (01) ==
PROVIDERS: Physician Assistant; Emergency Provider Emergency Medicine; PCP Family Medicine
DX: K57.32 Diverticulitis of large intestine without perforation or abscess without bleeding (principal); F17.210 Nicotine dependence, cigarettes, uncomplicated; D64.9 Anemia, unspecified; F32.A Depression, unspecified; K21.9 Gastro-esophageal reflux disease without esophagitis; E11.9 Type 2 diabetes mellitus without complications; E03.9 Hypothyroidism, unspecified; E78.5 Hyperlipidemia, unspecified
CPT/HCPCS: 74177; 80053; 81001; 83690; 85025; 96374; 96375; 99285; J1171; J2270; J2405; Q9967

== ENCOUNTER 2024-11-09 18:54 | Emergency (ER) | payer MEDICARE, SELFPAY ==
--- OUTSIDE RECORDS SUMMARY | 2011-05-21 20:00 | XMS_ITS | Continuity of Care Document ---
Author Organization [facility] Address [address] [place] [address] Phone Care Team Providers Care Adzing And Boring Machine Helper Name Role Phone No Information Unavailable Unavailable Advance Directives Directive Yes / No Effective Date File Name No Information Encounters Encounter Description Practice Location Reason(s) For Visit Diagnoses Date Provider Providers Copied on Encounter [facility], [address] [place] [address], [place], [address], [place] tel:[phone] No Location No Information No Information Family [...]
--- OUTSIDE RECORDS SUMMARY | 2015-12-13 10:52 | XMS_ITS | Continuity of Care Document ---
Author Organization [facility] Address [address] [place] [phone] Phone Care Team Providers Care Financial Recruiter Name Role Phone Natty CASTILLO, Gentry Unavailable [...] as directed. - Active 09/15/15 & 09/29/15 [id number] RxID: [id number] Durezol 0.05 % eye drops Use BID as directed. May sub Lotemax Gel 0.5%, 5 ml. Use QID as directed. May sub Prednisolone Acetate 1%, 10 ml. Use QID as directed. - Active 09/15/15 & 09/29/15 [id number] Ocuflox 0.3 % eye drops Use QID as directed. - Active 6 & 09/29/15 [id number] gabapentin 600 mg tablet take 1 tablet [...] [place], LASER POSTOP [facility] verified w/pt or re TOBACCO NON-USER OPHTHALMIC BIOMETRY Advance Directives Directive Yes / No Effective Date File Name No Information Encounters Encounter Description Practice Location Reason(s) For Visit Diagnoses Date Provider Providers Copied on Encounter [facility], [address] [place] [address], [address] [place] [address], [phone] [facility] [place] No Information 6 Natty Rinaldi. [address] [place] [address], [address] [place] [address] , . tel:[phone] [facility], [address] [place] [address], [id number], [phone] [facility] No Information 6 Natty Rinaldi. [address] [place] [address], [id number] , . tel:[phone] Referring Provider: Mohsen Maria, [address] [place] [address], [id number] . tel:[phone] [facility], [address] [place] [address], [id number], tel:[phone] [facility] [place] Cataract eval (chief complaint) Combined Cat OD 6 Giovani Finn. [address] [place] [address], [id number] , . [phone] Referring Provider: Mohsen Maria, [address] [place] [address], [id number] . tel:[phone] [facility], [address] [place] [address], [id number], tel:[phone] [facility] No Information 6 Nattyjayant Rinaldi. [address] [place] [address], [id number] , . tel:[phone] Referring Provider: Gentry Travis, [address] [place] [address], [id number] . tel:[phone] Mohsen [facility] [place], [address] [place] [address], [id number], tel:[phone] [facility] No Information 6 Natty Rinaldi. [address] [place] [address], [id number] , . tel:[phone] Referring Provider: Mohsen Maria, [address] [place] [address], [id number] . tel:[phone] Mohsen [place] [facility] [place], [address] [place] [address], [id number], tel:[phone] [facility] [place] decreased vision (chief complaint) Combined Cat OS 6 Giovani Briseno. [address] [place] [address], [id number] , . tel:[phone] Referring Provider: Mohsen Maria, [address] [place] [address], [id number] . tel:[phone] Mohsen Delgado [facility] [place], [address] [place] [address], [id number], tel:[phone] [facility] Blurred vision (chief complaint) Combined Cat OUCombined Cat OS 6 Natty Rinaldi. [address] [place] [address], [id number] , . tel:[phone] Referring Provider: Mohsen Maria, [address] [place] [address], [id number] . tel:[phone] Mohsen Delgado [facility] [place], [address] [place] [address], [id number], tel:[phone] [facility] No Information 6 Natty Rinaldi. [address] [place] [address], [id number] , [place]. tel:[phone] Referring Provider: Gentry Travis, [address] [place] [address], [id number] . tel:[phone] Family History Family Member Type Diagnosis Age At Onset Sister Problem (finding) Cancer, unknown Mother Problem (finding) diabetes melli tus in first degree relative Immunizations Vaccine Date Status Comments Zoster administered Source: Other P rovider Pneumo (2 yrs or older)(PPV) administered Source: Other Provider Payers Payer name Insurance type Covered green party ID Authoriza tion(s) Medicare [place] [id number] Social History Type Description Quantity Date Captured [...] instructions. Call with any questions or concerns.Scribe: [id number]/H25.811/COMB CAT COD/IOL STD W/AK LASER TARGET PLANO [...] IOL. Call with any questions and concerns. [id number]/H25.812/COMB CAT COS/IOL STD w/AK LASER TARGET PLANO [...] have surgery, recommend phacoemulsification with intraocular lens. 22080/H25.812/COMB CATCOS/IOLSTD +/- [place] LASERTARGET PLANO OUTOPICAL/VISCOATIOL MASTER DONE, PENTACAM NEEDEDPOKaroline MOSS,[id number]: BB PERF CORNEAL SCAR ODCOD 57104/H25.811-If you choose the standard implant and have your astigmatism fixed you will have improved distance vision and will need readers.-If you choose the Standard implant you will need real time operator glasses if you do not have your astigmatism fixed. Related to Combined Cat OS Follow up - For surgery Related to Combined Cat OS Assessments Type Assessment Date No Information Patient Care Teams Name Effective Dates (start - stop) Status Members No Information
[2024-11-09 18:56] VITALS: BP 152/89; RESP 18; TEMP 37.1; O2SAT 96; BMI 27.4
--- OUTSIDE RECORDS SUMMARY | 2024-11-09 18:57 | XMS_ITS | Patient Health Record ---
Author Organization [facility] [address] Address [address] [facility] [address] [place] [address] Care Team Providers Care Marketing Sales Supervisor Name Role Phone NAUN OLIVARES Unavailable [phone] Allergies Allergen (clinical drug ingredient) Drug/Non Drug [...] e a day 30 min before a meal; Duration: 30 day(s) Active Lopid 600 MG 1 tablet Orally Twic e a day; Duration: 90 days 10/05/2017 Active Lactulose 10 GM/15ML 30 cc Orally three times a day (tid); Duration: 30 day(s) 10/05/2017 Activ e DULoxetine HCl 20 mg 1 capsule Oral daily Active Problems Problem Type SNOMED Code ICD Code Onset Dates Problem Status W/U Status Risk Notes Problem Fatty liver (678225981) Fatty liver (K76.0) Active confirmed Problem Constipation by delayed colonic transit (K59.01) Active confirmed Plan Of Treatment Pending Test Test Name Order Date Ultrasound : Liver (88292) 10/04/2017 Future Test Test Name Order Date CBC (H/H, RBC, INDICES, WBC, PLT) (1759) 10/05/2017 ALPHA FETOPROTEIN, TUMOR MARKER 10/06/19 18 HEMOGLOBIN A1c. (496) 10/05/2017 PROTHROMBIN TIME-INR ([facility] Test Code: 8 847) 10/05/2017 Liver Fibrosis, FibroTest-ActiTest Panel (18488) 10/05/2017 Insurance Providers Payer Name Payer Address Payer Phone Subscriber Number Group Number Insured Name Patient Relationship to Insured Coverage Start Date Coverage End Date [facility] [address] [address] [place] [address] [id number] Rox Whitfield Self - patient is the insured 8 Medical (General) History Medical History History ICD Code Hypothyroidism depression pancreatitis Surgical History Surgery Date(Month/Year) cholecystectomy hysterectomy thyroid
--- OUTSIDE RECORDS SUMMARY | 2024-11-09 18:57 | XMS_ITS | Continuity of Care Document ---
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 Most recent provider notes were reviewed. Clinical TopicsCall InitiationConnection Not Connected: the member could not be reached for this visit. Post-Call DocumentationPerformed By Anjelica Aiken Time spent 6 minutes. [email or web address] Not available 10/28/2024 13:49:58 Reason for Referral None Reported. Problems Name Problem SNOMED Code Status Onset Date Resolution Date Notes Provider Name and Address Organization Details Recorded Time Type 2 diabetes mellitus 80572643 Active 2022 ANGELICA quezada, [place] - [facility] 3 10:32:52 Essential hypertension 60672445 Active 2022 ANGELICA quezada, [place] - [facility] 3 10:32:49 Osteoporosis 71424776 Active 2022 Kassandra Weston null, [place] - [facility] 3 13:23:41 Osteoarthritis 092108042 Active 2022 Kassandra Weston [place] [facility] 3 13:23:50 Spinal stenosis 34151106 Active 2022 Kassandra Weston null[place] [facility] 3 13:24:00 Diabetes mellitus 59252982 Active 2022 ZZ JUAN MANUEL ZCharan SECRY null, [place] - [facility] 3 15:35:53 Anxiety 97598232 Active 2024 Garfield Quinonez NP [address] , [place], [address], [place] [facility] 5 09:13:57 Pulmonary emphysema 38700137 Active 2024 Garfield Quinonez NP [address] , [place], [address], [place] [facility] 5 09:14:23 Coronary arterioscleros is 70281611 Active 2024 Garfield Quinonez NP [address] , [place], [address], [place] [facility] 5 09:16:09 Atrial fibrillation 86442983 Active 2024 Garfield Quinonez NP [address] , [place], [address], [place] [facility] 5 09:16:19 Depressive disorder 54009057 Active 2024 Garfield Quinonez NP [address] , [place], [address], [place] [facility] 5 09:16:44 Hyperlipidemia 93782043 Active 2024 Garfield Quinonez NP [address] , [place], [address], [place] [facility] 5 09:17:01 Postoperative hypothyroidism 50916694 Active 2024 Garfield Quinonez NP [address] , [place], [address], [facility] 5 09:17:48 History of cerebrovascula r accident 848363317 Active 2024 Garfield Quinonez NP [address] , [place], [address], [facility] 5 09:19:05 Problem Notes None recorded. Procedures Surgical History Date Name Laterality Status Provider Name and Address Organization Details Recorded Time Thyroidectomy completed [facility] 03/13/2023 10:13:31 Gallbladder Surgery completed [facility] 03/13/2023 10:13:58 Hysterectomy completed [facility] 03/13/2023 10:14:03 Appendectomy completed [facility] 03/13/2023 10:14:08 bilateral cataract extraction completed Garfield Quinonez NP [address], [place], [address], [facility] 10/08/2024 09:19:37 Imaging Results None recorded. Procedure Notes None recorded. Medical Equipment None Reported. Allergies Allergen ID Allergen Name Allergen Category Reaction Reaction Severity Criticality Documentation Date Start Date Code Code System Note Provider Name and Address Organization Details Recorded Time Ceclor medicatio n Not available Not available Not available 03/13/202330339 5 RxNorm Burke More null, [facility] 3 10:13:01 78871 codeine medicatio n Not available Not available Not available 03/13/2023 2670 RxNorm Burke More null, [facility] 3 10:13:06 Medications Name Sig [...] Status Current Some Day Smoker Burke More null, [place] [facility] 03/13/2023 10:13:25 What Is Your Level Of Caffeine Consumption? Moderate [email or web address] Information not available 03/13/2023 How Much Tobacco Do You Smoke? 0.5 PPD [email or web address] Information not available 10/08/2024 Sex: Unknown Functional Status Question Answer Note LastModified by Organizat ion Details LastModified Time Do you use any illicit or recreational drugs? No [email or web address] Information not available 03/13/2023 Do you or have you ever used any other forms of tobacco or nicotine? No [email or web address] Information not available 03/13/2023 What is your level of alcohol consumption? None [email or web address] Information not available 03/13/2023 Mental Status None [...] SNOMED-CT Code Diagnosis ICD10 Code Diagnosis Note 180424 Garfield Quinonez NP [facility] [address] [place] [address] 09/30/2024 11:58:12 09/30/2024 12:00:40 Type 2 diabetes mellitus 70748680 E11.65 Type 2 diabetes mellitus 287246 Garfield Quinonez NP [facility] Schedule [address] [place] [address] 10/08/2024 09:10:56 10/08/2024 09:29:13 Type 2 diabetes mellitus 24523696 E11.65 Diabetes Ongoing Care Plan -Continue RPM [...] intake and water's role in decreasing glucose. 019584 Garfield Quinonez NP [facility] Schedule [address] [place] [address] 10/24/2024 13:53:25 10/24/2024 14:06:56 Type 2 diabetes mellitus 93796917 E11.65 Type 2 diabetes mellitus 651529 Garfield Quinonez NP [facility] Schedule [address] [place] [address] 10/28/2024 13:48:53 10/28/2024 13:49:59 Diabetes mellitus 74522770 E11.9 Diabetes mellitus Type 2 serafin betes mellitus 53936156 E11.65 Type 2 diabetes mellitus Essential hypertension 16426034 I10 Essential hypertensi on Goals Section Goal [...] Member ID Gallardo Member ID Guarantor Name 10/28/2024 1 [employer] (MEDICARE REPLACEMENT/A DVANTAGE - PPO) Rox Whitfield [id number] Rox Whitfield OBGyn Episode No OBEpisode recorded.
--- OUTSIDE RECORDS SUMMARY | 2024-11-09 18:57 | XMS_ITS | Clinical Summary ---
Author Organization [facility] Address [address] [place] [address] Care Team Providers Care Food And Beverage Checker Name Role Phone Darrell Lane MD Primary Care Provider [phone]- [phone] Encounters Date Type Department Care Team Description 10/20/2024 Telephone [facility] [address] [place] [address] Tara Lizarraga MD [facility] Clinical Concern/Question 10/16/2024 Telephone [facility] [address] [place] [address] Yissel Preciado APRN, DNP [facility] Clinical Concern/Question from Last 3 Months [...] Care Team (Late st Contact Info) Description 02/18/2025 3:00 PM EDT Consult [facility] [address] [place] [address] Tara Lizarraga MD [address] [place] [address] Health Maintenance Due Date Last Done Comments [facility]-Bone Density Scan 1948 [facility]-Depression Screening 1948 [facility]-Hepatitis C Screening 1950 [facility]-Medicare Annual Wellness (AWV) 1948 [facility]-/Child/Adol SDOH Screenings 1948 [facility]- SDOH Screenings 1966 [facility]-Adult SDOH Screenings 1966 [facility]-DTaP,Tdap,and Td Vaccines (1 - Tdap) 08/01/1967 [facility]-RSV Vaccine: 60+ Years or (1 - 1-dose 75+ series) 08/01/2023 [id number] Vaccine (3 - season) 2024 11/26/2021, 08/30/2020 [facility]-Influenza Vaccine (#1) 2025 02/14/2021 [facility]-Pneumococcal Vaccine: 50+ Years Completed [...] patient's age to complete this topic Insurance [facility] MEDICARE Care Teams Food And Beverage Checker Relationship Specialty Start Date End Date Darrell Lane MD [address] [place] [address] PCP - General 10/15/24
--- OUTSIDE RECORDS SUMMARY | 2024-11-09 18:57 | XMS_ITS | Continuity of Care Document ---
Author Organization [place] - [facility] [place] [facility] [place], [facility] Address [address] [facility] [address] [place] [address] Assessment Encounter Date Assessment Date Assessment LastModified by Organization Details LastModified Time 11/03/2024 11/03/2024 74 yo female with chronic left sided abdominal discomfort and and constipation. She has evidence of chronic pancreatitis on CT although no known history of pancreatitis. She has a cystocele. -She will continue Linzess, fiber supplements, and enema as needed. Discussed hopeful improvement following surggical treatment for prolapsed bladder. -We will add Lubiprostone to try to augment her laxative regimen. -She previously deferred referral for pelvic floor therapy. -She had consultation with [facility] on 09/22/24. They referred her to surgical urology at and are treating her external hemorrhoids. *Regarding chronic pancreatitis: This was mentioned on prior CT, but not subsequent CT. EUS was indeterminate. Creon did not previously change her GI symptoms. [email or web address] Not available 11/04/2024 09:29:29 Plan of Treatment Reminders Order Date Submit Date Provider Last Modified By Organization Details Last Modified Time Details Appointments None recorded. Lab None recorded. Referral None recorded. Procedures None recorded. Surgeries None recorded. Imaging None recorded. Medication Orders prucaloprid e 2 mg tablet 2024 025 [employer] #[id number], [address] [facility] [address] [place], [id number], 09:29:09 Patient TargetsNo targets recorded. Patient InstructionsNo instructions recorded. Reason for Referral None Reported. Results Created Date Observation Date Name Description Value Unit Range Abnormal Flag Note LastModifiedBy Organization Detail LastModifiedTime 10/25/19 25 10/24/2024 CT ABD w/w/O [facility] [address] [place] [address] Phone: Fax: Name: MICHELLE CROUCH Exam Date: 025 : 949 Age 74 years Gender : F Access ion: [id number] 0090 Physic kleber: DANIELLE DARREN [place] Fac[place] HSV: Outpat ient Exam: CT ABD W/W/O PROCED URE: CT ABDOME N WITHOU T THEN WITH IV CONTRA ST CLINIC AL INDICA TION: Diseas e of pancre as unspec ified. COMPAR ZACHERY: CT Abdome n Pelvis 2023, 2022, 2021, [address] Abdome n 2022. TECHNI QUE: Helica l CT acquis ition perfor med of the abdome n with bailey l and sagitt al reform ats. A noncon trast base scan was obtain ed. Post contra st images acquir ed in arteri al, portal venous delaye d phases . IV Contra st: 100 ml Isovue 370. PO Contra st: None. . Compli cation s: None. FINDIN GS: Lower thorax : No focal consol idatio ns or pleura l effusi ons. Free air: None Hepato biliar y system : Normal enhanc ement. No discre te lesion s. Attenu ation normal . No intra- or extrah epatic biliar y ductal dilata tion. Gallbl adder: Surgic ally absent . Spleen : Normal size. Pancre as: Atroph ic, withou t focal abnorm ality. Few coarse calcif icatio ns may reflec t chroni c pancre atitis . Adrena l glands : Approx imatel y 2 cm left adrena l nodule has attenu ation charac terist ics typica l of benign adenom a. Kidney s and collec ting system : Normal morpho logy. No hydron ephros is or nephro lithia sis. Gastro intest inal: No eviden ce for obstru ction. No defini te wall thicke vane. No defini te inflam matory fat strand ing. Normal duoden al sweep. Append ix: Not reliab ly identi fied. No defini te second kita signs of append icitis . Vascul ature: Portal and spleni c veins patent . Aorta normal calibe r. Extens medina athero matous calcif icatio ns. Nodes: No signif icant lympha denopa thy. Free fluid: None. Soft tissue s: No signif icant inflam matory change s. No eviden ce for body wall hernia . Scatte red subcut aneous inject ion granul omas. Bones: No eviden ce for fractu re. No suspic ious bone lesion . Modera te multil evel degene rative facet and disc change s. IMPRES NIMISHA: No acute findin gs. No signif icant inflam matory change s in the abdome n. No no suspic ious masses identi fied. Legall y authen ticate d by JAMI CAMPOS 10-24 13:36: [address] Dose Index: 8.12, 12.02, 8.93, 9.18 mGy. Total Exam Dose Length Produc t: 1280.8 0 mGy-cm . CT Dose reduct ion techni ques were utiliz ed for this examin ation with 1 or more of the follow ing: Automa katie exposu re contro l and/or adjust ment of the mA or kV accord ing to patien t size, and/or use of iterat medina recons tructi on techni que. This dictat ion was perfor med using voice recogn ition softwa re and some phonet ic and gramma tical errors may have been missed in proofr eading . Electr onical ly signed by: Kieran Dunn i, MD 2024 01:36 PM EDT RP Workst ation: [id number] Dictat ed By: Kieran Dunn i Transc ribed By: Transc ribed On: 025 1:36 PM Electr onical ly signed by: Kieran Dunn i 025 Thank you for referr ing MIKO, JUANIT A to [facility] al. Legall y authen ticate d by JAMI CAMPOS 10-24 13:36: 13 CC'ed Logic: Orderi ng Provid er: DANIELLE NORTON Attend ing Provid er: DUNCANCHER NORTON Referr ing Provid er: DANIELLE DARREN Admitt ing Provid er: DUNCAN DARREN [facility] [address], [place], [address], 11/03/2024 20:15:49 Result Notes None recorded. Problems Name Problem SNOMED Code Status Onset Date Resolution Date Notes Provider Name and Address Organization Details Recorded Time Left sided abdominal pain 189169086 Active 2023 Darren Duncan PA-C [address] , [place], [address] , [place] [facility] [place] [facility] [place] 4 15:29:23 Disorder of rectum 1667789 Active 2024 Darren Duncan PA-C [address] [facility], [place], [address] , [place] - [facility] [place] [facility] [place] 5 12:14:59 Upper abdominal pain 66334442 Active 2024 Darren Duncan PA-C [address] [facility], [place], [address] , [place] [facility] [place] [facility] [place] 5 15:49:45 Burning epigastric pain 50550029 Active 2024 Darren Duncan PA-C [address], [place], [address] , [place] [facility] [place] & [place] 5 17:11:13 Disorder of pancreas 1338275 Active 2024 Darren Duncan PA-C [address] , [place], [address] , [place] [facility] [place] [facility] [place] 5 17:04:58 External hemorrhoid s 55438593 Active 2024 Darren Duncan PA-C [address], [place], [address] , [place] - [facility] [place] & [place] 5 14:35:52 Cystocele 355693871 Active 2024 Darren Duncan PA-C [address], [place], [address] , [place] [facility] [place] [facility] [place] 5 09:28:27 Vitamin D deficiency 67415034 Active Lux Everidge null, [place] [facility] [place] & [place] 2 14:26:26 Senile osteoporos is 98370138 Active Lux Everidge [place], [place] [facility] [place] 2 14:26:26 Chronic idiopathic constipati on 12049682 Active Darren Duncan PA-C [address], [place], [address] , [place] [facility] [place] [facility] [place] 5 15:02:35 Dyslipidem ia 009637791 Active Lux Everidge [place], [place] [facility] [place] 2 14:26:26 Mood disorder 15474360 Active Lux Everidge [place], [place] [facility] [place] 2 14:26:26 Smoker 38054103 Active Lux Everidge [place] [facility] [place] 2 14:26:26 Paresthesi a 41074174 Active Lux Everidge [place] [facility] [place] 2 14:26:26 History of polyp of colon 854515794 Active Lux Everidge [place], [place] [facility] - [facility] & [place] 2 14:26:27 Insomnia 236001030 Active Lux Everidge [place] [facility] [place] 2 14:26:27 Chronic pancreatit is 861344853 Active Lux Everidge [place] [facility] [place] 2 14:26:27 Nausea 149489045 Active Lux Everidge [place] [facility] & [place] 2 14:26:27 Gastroesop hageal reflux disease 160277467 Active Darren Duncan PA-C [address], [place], [address] , [place] [facility] [place] [facility] [place] 5 15:38:17 Type 2 diabetes mellitus without complicati on 076281438 Active Lux Ward [place], [place] [facility] [place] 2 14:26:27 Heterozygo us Factor V Leiden mutation 989935393 Active Lux Everidge [place] [facility] [place] 2 14:26:27 Cerebrovas cular accident 937661898 Active Lux Everidge [place] [facility] [place] 2 14:26:27 Abdominal aortic atheroscle rosis 165939246 Active Lux Everidge [place] [facility] [place] 2 14:26:27 Acid reflux 761902351 Active Lux Everidge [place] [facility] [place] 2 14:26:27 Hypothyroi dism 68062990 Active Lux Everidge [place] [facility] [place] 2 14:26:27 Abdominal pain 86820351 Active Lux Everidge [place] [facility] [place] 2 14:26:27 Constipati on 79585293 Active Lux [place]idge [place], [place] [facility] [place] 2 14:26:27 Urinary incontinen ce 539672584 Active Lux Everidge [place] [facility] [place] 2 14:26:27 Chronic mood disorder 2310834284097 08 Active 2022 Meghan Goldberg MD [address], [place], [address] , [place] [facility] [place] [facility] [place] 3 13:33:16 Anxiety 71347868 Active 2022 Meghan Goldberg MD [address], [place], [address] , [place] [facility] [place] [facility] [place] 3 13:33:24 Lesion of liver 923848127 Active 2022 Darren Duncan PA-C [address], [place], [address] , [place] [facility] [place] [facility] [place] 3 15:11:32 Left upper quadrant pain 279877914 Active [address], [place], [address] , [place] [facility] [place] [facility] [place] 3 15:11:39 Abdominal distension , gaseous 846415833 Active 2022 Darren Duncan PA-C [address], [place], [address] , [place] [facility] [place] [facility] [place] 3 15:11:51 Irritable bowel syndrome characteri zed by constipati on 899511581 Active 2022 Darren Duncan PA-C [address], [place], [address] , [place] [facility] [place] [facility] [place] 5 15:52:29 Exocrine pancreatic insufficie nmy 79440295 Active 2022 Darren Duncan PA-C [address], [place], [address] , [place] [facility] [place] [facility] [place] 3 15:30:22 Problem Notes None recorded. Procedures Surgical History Date Name Laterality Status Provider Name and Address Organization Details Recorded Time Hysterectomy completed Lux Ward [place] - [facility] [place] [facility] [place] 04/04/2022 14:31:13 Gallbladder Surgery completed Lux BERRY - [facility] [place] [facility] [place] 04/04/2022 14:31:18 Appendectomy completed Lux BERRY - [facility] [place] [facility] [place] 04/04/2022 14:31:23 Thyroidectomy completed Lux Ward [place] - [facility] [place] [facility] [place] 04/04/2022 14:31:28 Imaging Results None recorded. Procedure Notes None recorded. Medical Equipment None Reported. Allergies Allergen ID Allergen Name Allergen Category Reaction Reaction Severity Criticality Documentation Date Start Date Code Code System Note Provider Name and Address Organization Details Recorded Time 28344 Ceclor medicatio n Not available Not available Not available 03/10/202218002 5 RxNorm Magy Peck [facility] & [place] 2 11:14:09 28490 codeine medicatio n Not available Not available Not available 04/04/2022 2670 RxNorm Lux Ward [facility], [facility] & [place] 2 14:26:17 Medications Name Sig Start Date Stop Date Status Note LastModified by Organization Details LastModified Time cyclobenzap rine 10 mg tablet TAKE 1 TABLET BY MOUTH THREE TIMES DAILY 11/03 completed Not Available Not Available Not Available metformin 500 mg tablet TAKE 1 TABLET BY MOUTH TWICE DAILY active Not Available Not Available No t Available ciprofloxac in 750 mg tablet TAKE 1 TABLET BY MOUTH TWICE DAILY 11/03 completed Not Available Not Available Not Available trazodone 50 mg tablet TAKE 1 [...] BY MOUTH THREE TIMES DAILY NEEDED FOR ALLERGY SYMPTOMS. 3 DOSES DURING THE DAY LAST DOSE NO LATER THAN 4 HOURS BEFORE BEDTIME active Not Available Not Available No t [...] TABLET BY MOUTH DAILY FOR 4 DAYS 11/03 completed Not Available Not Available Not Available desmopressi n 0.2 mg tablet active Not Available Not Available Not Available niacin ER 500 mg tablet,exte nded release 24 hr TAKE 1 TABLET BY MOUTH WITH FOOD ONCE DAILY active Not Available Not Available No t Available metronidazo le 500 mg tablet TAKE 1 TABLET BY MOUTH 4 TIMES DAILY 11/03 completed Not Available Not Available Not Available clopidogrel 75 mg tablet TAKE 1 [...] BY MOUTH TWICE DAILY FOR 7 DAYS 11/03 completed Not Available Not Available Not Available omeprazole 40 mg capsule,del ayed release TAKE 1 CAPSULE BY MOUTH ONCE DAILY 09/01 completed Not Available Not Available Not Available doxycycline monohydrate 100 mg tablet TAKE 1 TABLET BY MOUTH EVERY 12 HOURS 04/04 completed Not Available Not Available Not Available FiberCon 625 mg tablet TAKE 2 CAPLETS BY MOUTH ONCE DAILY 11/03 completed Not Available Not Available Not Available [...] TABLET BY MOUTH 4 TIMES DAILY NEEDED 11/03 completed Not Available Not Available Not Available nitrofurant oin macrocrysta l 100 mg [...] TAKE 1 TABLET BY MOUTH ONCE DAILY 11/03 completed Not Available Not Available Not Available Synthroid 50 mcg tablet TAKE 1 [...] tablet TAKE 1 TABLET BY MOUTH DAILY 11/03 completed Not Available Not Available Not Available prednisone 5 mg tablets in a dose pack TAKE BY MOUTH DIRECTED ON INSIDE OF PACKAGE 09/01 completed Not Available Not Available Not Available levofloxaci n 500 mg tablet 11/03 completed Not Available Not Available Not Available [...] Available ondansetron 4 mg disintegrat ing tablet Place 1 tablet twice a day by oral route. 11/03 completed Not Available Not Available Not Available cefdinir 300 mg capsule TAKE 1 CAPSULE BY MOUTH TWICE DAILY FOR 7 DAYS 11/03 completed Not Available Not Available Not Available amoxicillin 875 mg-potassiu m clavulanate 125 mg tablet TAKE 1 TABLET BY MOUTH EVERY 8 HOURS FOR 7 DAYS 11/03 completed Not Available Not Available Not Available amoxicillin 500 mg-potassiu m clavulanate 125 [...] MOUTH FOUR TIMES DAILY NEEDED FOR PAIN 11/03 completed Not Available Not Available Not Available hydroxyzine pamoate 25 mg capsule TAKE [...] capsule TAKE 1 CAPSULE BY MOUTH EVERY 12 HOURS WITH FOOD/MEAL FOR 7 DAYS 11/03 completed Not Available Not Available Not Available duloxetine 30 mg capsule,del ayed release TAKE 1 CAPSULE BY MOUTH DAILY active Not Available Not Available No t Available omega-3 acid ethyl esters 1 gram capsule TAKE 1 CAPSULE BY MOUTH DAILY active Not Available Not Available No t Available lubiproston e 24 mcg capsule Take 1 capsule twice a day by oral route for 30 days. 11/03 completed Not Available Not Available Not Available fenofibrate nanocrystal lized 145 mg tablet TAKE 1 TABLET BY MOUTH ONCE DAILY active Not Available Not Available No t Available peg 3350-electr olytes 236 gram-22.74 gram-6.74 gram-5.86 gram solution USE DIRECTED 04/04 completed Not Available Not Available Not Available oxycodone 10 mg tablet TAKE 1 TABLET BY MOUTH 4 TIMES DAILY NEEDED FOR PAIN active Not [...] capsule by mouth with snacks, 30 days. 11/03 completed Not Available Not Available Not Available naloxone 4 mg/actuatio n nasal spray CALL 911. SPR CONTENTS OF ONE SPRAYER (0.1ML) INTO ONE NOSTRIL. REPEAT IN 2-3 MIN IF SYMPTOMS OF OPIOID EMERGENCY PERSIST, ALTERNATE NOSTRILS active Not Available Not Available No t Available prucaloprid e 2 mg tablet TAKE 1 TABLET BY MOUTH EVERY DAY active Not Available Not Available No t Available Rybelsus 3 mg tablet TAKE 1 TABLET BY MOUTH ONCE DAILY active Not Available Not Available No t Available Vitals Date Recorded Body height Body mass index (BMI) Body weight Body temperature Oxygen saturation Oxygen saturation in Arterial blood by Pulse oximetry Heart rate Systolic And Diastolic Provider Name and Address Organization Details Last Updated DateTime 5 170.18 cm 25.7 kg/m2 03389.7 9 g 98.4 [degF] 96 % 96 % 80 /min 112/66 mm[Hg] Meghan Lorenzo [facility] & [place] 5 14:29:22 Social History Question Answer Notes LastModified by Organizat ion Details LastModified Time Tobacco Smoking Status Current Every Day Smoker Lux Ward [facility] & [place] 04/04/2022 14:30:16 How Much Tobacco Do You [...] Osteoporosis/Osteopenia Y Reflux/GERD Y High Cholesterol Y Spine [...] 1 completed Lux [place], [place] - [facility] & [place] 04/04/2022 14:32:16 COVID-19 vaccine, vector-nr, rS-Ad26, PF, 0.5 mL 1 completed Lux quezada [place] [facility] [place] [facility] [place] 04/04/2022 14:32:16 Pneumococcal conjugate PCV20, polysaccharide FPF484 conjugate, adjuvant, PF 2 completed Lux quezada [place] - [facility] & [place] 04/04/2022 14:32:16 COVID-19, mRNA, LNP-S, PF, 30 mcg/0.3 mL dose, marito-sucrose 2 completed Lux quezada [place] - [facility] & [place] 04/04/2022 14:32:16 Past Encounters Encounter ID Performer Location Encounter Start Date Encounter Closed Date Diagnosis/Indication Diagnosis SNOMED-CT Code Diagnosis ICD10 Code Diagnosis Note [id number] Darren Duncan PA-C [facility] [address] [facility] [address] [place] [address] 11/03/2024 14:22:03 11/03/2024 15:53:54 Left sided abdominal pain 062127032 R10.9 Chronic pancreatitis 235 292542 K86.1 Etiology is not known. Recent CT pancreas protocol showed course pancreatic calcificat ions. External hemorrhoids 239 71797 K64.4 Chronic id iopathic constipation 86171930 K59.04 Cystocele 798713317 N81. 10 Health Concerns Section Related Observation LastModified by Organization Detai ls LastModified Time None Recorded Concern Status LastModified by Organization Details LastModified Time None Recorded Payers Encounter Date Sequence Insurance Name Policy Number Policy Gallardo Covered Member ID Gallardo Member ID Guarantor Name 11/03/2024 1 [employer] (MEDICARE REPLACEMENT/A DVANTAGE - PPO) Rox Crouch [id number] Rox Crouch Notes Date Note Type Note Provider Name and Address Organization Details Recorded Time 11/03/2024 text/html PREVIOUS ( 5): Ms. Crouch returns to the office today for follow-up regarding LLQ pain, constipation, and abdominal bloating/distension. She was recent referred to [facility] for suspected rectocele. She has a consultation [...] abdominal pain and distension in the LLQ. CURRENT (11/03/24): Ms. Crouch returns to the office today for follow-up regarding lower abdominal pain, constipation, bloating, and distension. She recently underwent CT imaging for surveillance of pancreatic cystic lesions. No focal pancreatic lesions were seen, although coarse pancreatic calcifications were noted. She recently saw Dr. Bowling at [facility] and is being treated for prolapsing internal hemorrhoids. She states fibercon was started but caused excessive bloating. She went to the ED last week with upper abdominal burning. She states she had a CT done at that time that showed diverticulitis. They treated her with Amoxicillin. She states her symptoms have improved. She states that she continues to experience LLQ bloating, distension and difficulty passing stool. She uses enemas regularly to help clear the rectum of stool. She is scheduled to see Urology at in February for intervention for prolapsed bladder. Darren Duncan PA-C [address], [place], [address], [facility] - [facility] 11/04/2024 09:29:45 OBGyn Episode No OBEpisode recorded.
--- OUTSIDE RECORDS SUMMARY | 2024-11-09 18:58 | XMS_ITS | Encounter Summary ---
Author Organization Healthcare Address [address] [place] [address] Care Team Providers Care Net Making Supervisor Name Role Phone Darrell Lane MD Primary Care Provider [phone] Reason for Visit * Reason Onset Date Comments HCN Clinical Concern/Question 10/20/2024 Encounter Details Date Type Department Care Team (Late st Contact Info) Description 10/20/2024 Telephone [facility] [address] [place] [address] Tara Lizarraga MD [address] [place] [address] [facility]CN Clinical Concern/Question Social History Tobacco Use Types Packs/Day Years Used Date Smoking Tobacco: Never Assessed Comments Unknown Sex and Gender Information Value Date Recorded Sex Assigned at Not on file Legal Sex Female 12:33 PM EDT Gender Identity Not on file Sexual Orientation Not on file documented as of this encounter Miscellaneous Notes * Telephone Encounter - ColbyMeghan Kenny - 10/20/2024 10:57 AM EDT Patient Phone Message Reason for Call: New patient scheduled with Yissel Preciado APRN for dysuria, nocturnal frequency. Referring requestingDr. Alistair Lizarraga. Patient returning call, states had a missed call and uncertain if Urology calling back to change appointment. Requesting call back. Request routed to both Clinical and front desk receptionist staffper previous note for scheduling./aft Best contact number and optimal time of day to reach caller: Patient can be reached at [phone] Note: Please do not reply to this message. Follow-up communication and further actions as a result of this message need to be communicated with the patient directly, if the patient is not active onMyChart. If the patient is active on MyChart, they will receive notification of the communication/outcome via MyChart. documented in this encounter Plan of Treatment Upcoming Encounters Date Type Department Care Team (Late st Contact Info) Description 02/18/2025 3:00 PM EDT Consult [facility] Urology [address] [place] [address] Tara Lizarraga MD [address] [place] [address] documented as of this encounter Visit Diagnoses Not on filedocumented in this encounter Care Teams Net Making Supervisor Relationship Specialty Start Date End Date Darrell Lane MD [address] [place] [address] PCP - General 10/15/24 documented as of this encounter
--- OUTSIDE RECORDS SUMMARY | 2024-11-09 18:58 | XMS_ITS | Patient Health Record ---
Author Organization [facility] Billing Info Address [address] [place], [place] [address] [address] Care Team Providers Care Solar Thermal Installer Name Role Phone MARIA CBEE Primary Care Provider Allergies Allergen (clinical drug ingredient) Drug/Non Drug [...] Problem Status W/U Status Risk Notes Problem 874253296 Anxious depression (F41.8) Active confirmed Problem 174498037 Chronic pain disorder (G89.4) Active confirmed Problem 36028881 Osteoarthritis, chronic (M19.90) Active confirmed Problem 61720822 Hypothyroidism, iatrogenic (E03.2) Active confirmed Problem 662484786 Insomnia, unspecified type (G47.00) Active confirmed Plan Of Treatment Pending Test Test Name Order Date MAMMOGRAM; SCREENING, BILATERAL (14263) 06/17/2014 - BREAST RIO([facility]) 06/17/2014 Insurance Providers Payer Name Payer Address Payer Phone Subscriber Number Group Number Insured Name Patient Relationship to Insured Coverage Start Date Coverage End Date MEDICARE [place] PART B [address] [place], [place] [id number] Rox Whitfield Self - patient is the [...]
--- OUTSIDE RECORDS SUMMARY | 2024-11-09 18:58 | XMS_ITS | Continuity of Care Document ---
Author Organization [place] - [facility] Schedule Address [address] [place] [address] Care Team Providers Care Barrel Rifler Button Name Role Phone MIRZA MASON Primary Care Provider [phone] Assessment No assessment recorded. Plan of Treatment [...] By Organization Details Last Modified Time 09/30/2024 [id number] Pre-CallReanne marie chandler Pre-call review started at [...] Details Recorded Time Type 2 diabetes mellitus 09432901 Active 2022 ANGELICA DOMINGUEZ SECORY null, [place] - [facility] 3 10:32:52 Essential hypertension 53869576 Active 2022 ANGELICA DOMINGUEZ SECORY null, [place] - [facility] 3 10:32:49 Osteoporosis 14840561 Active 2022 Kassandraemely Weston null, [place] - [facility] 3 13:23:41 Osteoarthritis 002157129 Active 2022 Kassandra Weston null, [place] - [facility] 3 13:23:50 Spinal stenosis 45626183 Active 2022 Kassandra Weston null, [place] - [facility] 3 13:24:00 Diabetes mellitus 38885417 Active 2022 ANGELICA DOMINGUEZ SECORY null, [place] - [facility] 3 15:35:53 Anxiety 74354015 Active 2024 Garfield Quinonez NP [address] , [place], [address], [place] [facility] 5 09:13:57 Pulmonary emphysema 10681406 Active 2024 Garfield Quinonez NP [address] , [place], [address], [place] [facility] 5 09:14:23 Coronary arterioscleros is 82711995 Active 2024 Garfield Quinonez NP [address] , [place], [address], [place] [facility] 5 09:16:09 Atrial fibrillation 28218630 Active 2024 Garfield Quinonez NP [address] , [place], [address], [place] [facility] 09:16:19 Depressive disorder 07837701 Active 2024 Garfield Quinonez NP [address] , [place], [address], [facility] 5 09:16:44 Hyperlipidemia 05362482 Active 2024 Garfield Quinonez NP [address] , [place], [place], [address] [place] [address] 6, [facility] 5 09:17:01 Postoperative hypothyroidism 99948956 Active 2024 Garfield Quinonez NP [address] , [place], [address] [place] [address] 6, [facility] 5 09:17:48 History of cerebrovascula r accident 083501630 Active 2024 Garfield Quinonez NP [address] , [place], [place], [address] [place] [address] 6, [facility] 09:19:05 Problem Notes None recorded. Procedures Surgical History Date Name Laterality Status Provider Name and Address Organization Details Recorded Time Thyroidectomy completed [facility] 03/13/2023 10:13:31 [facility] 10:13:58 Hysterectomy completed [facility] 03/13/2023 10:14:03 Appendectomy completed [facility] 03/13/2023 10:14:08 bilateral cataract extraction completed Garfield Quinonez NP [address], [place], [address], [facility] 10/08/2024 09:19:37 Imaging Results None recorded. Procedure Notes None recorded. Medical Equipment None Reported. Allergies Allergen ID Allergen Name Allergen Category Reaction Reaction Severity Criticality Documentation Date Start Date Code Code System Note Provider Name and Address Organization Details Recorded Time Ceclor medicatio n Not available Not available Not available 03/13/202398249 5 RxNorm Burke Derik null, [facility] 3 10:13:01 codeine medicatio n Not available Not available Not available 03/13/2023 2670 RxNorm Burke quezada, [facility] 3 10:13:06 Medications Name Sig Start Date [...] Current Some Day Smoker Burke More [place], [place] - [facility] 03/13/2023 10:13:25 What Is Your Level Of Caffeine Consumption? Moderate [email or web address] Information not available 03/13/2023 How Much Tobacco Do You Smoke? 0.5 PPD [email or web address] Information not available 10/08/2024 Sex: Unknown Functional Status Question Answer Note LastModified by Organizat ion Details LastModified Time Do you use any illicit or recreational drugs? No [email or web address] Information not available 03/13/2023 Do you or have you ever used any other forms of tobacco or nicotine? No [email or web address] Information not available 03/13/2023 What is your level of alcohol consumption? None [email or web address] Information not available 03/13/2023 Mental Status None recorded. Family History Nothing Reported. Medical History Condition Response Anxiety Disorder Y Diabetes Y Coronary Artery Disease Y Obesity N [...] SNOMED-CT Code Diagnosis ICD10 Code Diagnosis Note [id number] [facility] [address] [place] [address] 09/01/2024 15:45:13 09/01/2024 15:50:55 Diabetes mellitus 67131175 E11.9 Diabetes mellitus 700740 [facility] [address] [place] [address] 09/12/2024 14:30:22 09/12/2024 14:48:17 Type 2 diabetes mellitus 12655852 E11.65 Type 2 diabetes mellitus 267651 [facility] [address] [place] [address] 09/26/2024 14:24:11 09/26/2024 14:42:18 Type 2 diabetes mellitus 88127741 E11.65 Type 2 diabetes mellitus 908026 [facility] Schedule [address] [place] [address] 09/30/2024 11:58:12 09/30/2024 12:00:40 Type 2 diabetes mellitus 48571132 E11.65 Type 2 diabetes mellitus Goals Section [...] (MEDICARE REPLACEMENT/A DVANTAGE - PPO) Rox Whitfield [id number] Rox Whitfield OBGyn Episode No OBEpisode recorded.
--- OUTSIDE RECORDS SUMMARY | 2024-11-09 18:58 | XMS_ITS | Encounter Summary ---
Author Organization Healthcare Address [address] [place] [address] Care Team Providers Care Fire Protection Engineer Name Role Phone Darrell Lane MD Primary Care Provider [phone] Reason for Visit * Reason Onset Date Comments HCN Clinical Concern/Question 10/16/2024 Encounter Details Date Type Department Care Team (Late st Contact Info) Description 10/16/2024 Telephone [facility] [address] [place] [address] Yissel Preciado, MARKET DEVELOPMENT EXECUTIVE, DNP [address] [place] [address] HCN Clinical Concern/Question Social History Tobacco Use Types Packs/Day Years Used Date Smoking Tobacco: Never Assessed Comments Unknown Sex and Gender Information Value Date Recorded Sex Assigned at Not on file Legal Sex Female 12:33 PM EDT Gender Identity Not on file Sexual Orientation Not on file documented as of this encounter Miscellaneous Notes * Telephone Encounter - Meghan Horne - 10/28/2024 4:05 PM EDT Able to move over to Dr Lizarraga for 02/18/25. Patient has been called. * Telephone Encounter - Jet Caal - [...] seen by Dr. Lizarraga. Best contact number: [phone] (home) Optimal time of day to reach caller: ANYTIME Additional comments/information from caller: None Note: Please do not reply to this message. Follow-up communication and further actions as a result of this message need to be communicated with the patient directly, if the patient is not active onMyChart. If the patient is active on MyChart, they will receive notification of the communication/outcome via [employer]. documented in this encounter Plan of Treatment Upcoming Encounters Date Type Department Care Team (Late st Contact Info) Description 02/18/2025 3:00 PM EDT Consult [facility] Urology [address] [place] [address] Tara Lizarraga MD [address] [place] [address] documented as of this encounter Visit Diagnoses Not on filedocumented in this encounter Care Teams Fire Protection Engineer Relationship Specialty Start Date End Date Darrell Lane MD [address] [place] [address] PCP - General 10/15/24 documented as of this encounter
--- OUTSIDE RECORDS SUMMARY | 2024-11-09 18:58 | XMS_ITS | Data Portability ---
Author Organization [place] [facility] [place] [facility] ADMIN Address [address] [place] [address] Assessment Encounter Date Assessment Date Assessment LastModified by Organization Details LastModified Time 02/29/2024 02/29/2024 73 yo female wit h [...] abdomen and pelvis with IV contrast at [facility] revealed nodular liver margins indicative of [...] may be eligible for the medication through [employer]'s patient access support. -Creon samples provided in the office today. If no improvement at follow-up, plan for endoscopic procedures. [email or web address] Not available 02/29/2024 14:47:21 03/26/2024 03/26/2024 73 [...] abdomen and pelvis with IV contrast at [facility] revealed nodular liver margins indicative of [...] application for eligibility for the medication through [employer]'s patient access support. -Additional Creon samples provided in the office today. If no improvement at follow-up, consider endoscopic procedures. [email or web address] Not available 03/26/2024 15:29:14 07/22/2024 07/22/2024 73 [...] a rectocele. -She reports recent MRI at [facility]. I will request those results to send along with her referral. *Regarding chronic pancreatitis: This was mentioned on prior CT, but not subsequent CT. EUS was indeterminate. f/u 6 weeks [email or web address] Not available 07/22/2024 21:09:14 09/01/2024 09/01/2024 74 [...] change her GI symptoms. f/u 3 months. [email or web address] Not available 09/02/2024 21:54:52 11/03/2024 11/03/2024 74 yo female wit h chronic left [...] did not previously change her GI symptoms. [email or web address] Not available 11/04/2024 09:29:29 Plan of Treatment Reminders Order Date Submit Date Provider Last Modified By Organization Details Last Modified Time Details Appointments None recorded. Lab None recorded. Referral colon & rectal surgeon referral 2024 025 [email or web address] Vanesa Rowley MD, [address], [address], [place], [address], 21:10:19 Procedures None recorded. Surgeries None recorded. Imaging None recorded. Medication Orders prucaloprid e 2 mg tablet 2024 [id number], [address] [place], [id number], 5 09:29:09 Nexium 20 mg capsule,del ayed release 2024 [facility] #78189, [address] [place], [id number], 5 15:51:47 lubiproston e [address] [facility] #69875, [address] [place], [id number], 5 15:00:21 Creon 36,000 unit-114,00 0 unit-180,00 0 unit capsule,del ayed release 2023 [facility]OWINCKEL [facility] #65844, [address] [place], [id number], 5 15:11:15 Patient TargetsNo targets recorded. Patient Instructions Encounter Date Encounter Id Patient Instructions Last Modified By Organization Details Last Modified Time 02/29/[id number] ABDOMEN AND PELVIS WITH CONTRAST 03/29/22 [...] abdomen with IV contrast in 3 months. [email or web address] Not available 02/29/2024 10:19:48 03/26/[id number] ABDOMEN AND PELVIS WITH CONTRAST 03/29/22 [...] abdomen with IV contrast in 3 months. [email or web address] Not available 03/26/2024 14:20:16 07/22/[id number] ABDOMEN AND PELVIS WITH CONTRAST 03/29/22 [...] abdomen with IV contrast in 3 months. [email or web address] Not available 07/22/2024 12:02:23 Reason for Referral Colon & Rectal Surgeon Refer ral for Disorder of rectum Referring Physician: Darren Duncan, Gastroenterology, Encounter Date: 07/22/2024 Results Created Date Observation Date Name Description Value Unit Range Abnormal Flag Note LastModifiedBy Organization Detail LastModifiedTime 07/25/1904/16/2024 MRI, pelvi s, w/wo contr ast No observ ation record ed. [email or web address] [facility] (Med Record) [address], [place], [address], 07/24/2024 16:53:28 06/2010/24/2024 CT ABD w/w/O [facility] [address] [place] [address] Phone: Fax: Name: MICHELLE WHITFIELD Exam Date: 025 : 949 Age 74 years Gender : F Access ion: [id number] Physic kleber: DARREN DUNCAN Facili ty: [facility] Facili ty HSV: Outpat ient Exam: CT [...] i 025 Thank you for referr ing MICHELLE WH[facility]FIELD to [facility] Legall y authen ticate d by JAMI CAMPOS 10-24 13:36: 13 CC'ed Logic: Orderi ng Provid er: DUNCANCHER NORTON Attend ing Provid er: DANIELLE NORTON Referr ing Provid er: DANIELLE SULTANAH Admitt ing Provid er: DANIELLE SULTANAH [email or web address] [facility] - Physical Therapy [address] [facility], [place], [address], 11/03/2024 20:15:49 Result Notes None recorded. Problems Name Problem SNOMED Code Status Onset Date Resolution Date Notes Provider Name and Address Organization Details Recorded Time Left sided abdominal pain 565854042 Active 2023 Darren Duncan PA-C [address] , [place], [address] , [place] [facility] & [place] 4 15:29:23 Disorder of rectum 7358661 Active 2024 Darren Duncan PA-C [address] , [place], [address] , [place] [facility] & [place] 5 12:14:59 Upper abdominal pain 63893075 Active 2024 Darren Duncan PA-C [address] [place], [address] , [place] [facility] & [place] 5 15:49:45 Burning epigastric pain 49410018 Active 2024 Darren Duncan PA-C [address] , [place], [address] , [place] [facility] & [place] 5 17:11:13 Disorder of pancreas 1362583 Active 2024 Darren Duncan PA-C [address] [place], [address] , [place] [facility] & [place] 5 17:04:58 External hemorrhoid s 18335008 Active 2024 Darren Duncan PA-C [address] [place], [address] , [place] [facility] [place] & [place] 5 14:35:52 Cystocele 428560536 Active 2024 Darren Duncan PA-C [address] , [place], [address] , [place] [facility] [place] 5 09:28:27 Vitamin D deficiency 39761080 Active Lux [place] null, [place] [facility] [place] & [place] 2 14:26:26 Senile osteoporos is 94710401 Active Lux [place] null[place] [facility] [place] & [place] 2 14:26:26 Chronic idiopathic constipati on 91622358 Active Darren Duncan PA-C [address] [facility], [place], [address] , [place] [facility] [place] 5 15:02:35 Dyslipidem ia 402279430 Active Lux [place] null, [place] [facility] [place] 2 14:26:26 Mood disorder 60557630 Active Lux [place] [facility] [place] 2 14:26:26 Smoker 99073462 Active Lux [place] [facility] [place] 2 14:26:26 Paresthesi a 17227830 Active Lux [place] [facility] [place] 2 14:26:26 History of polyp of colon 687177576 Active Lux [place] [facility] [place] 2 14:26:27 Insomnia 806285154 Active Lux [place] [facility] [place] 2 14:26:27 Chronic pancreatit is 893498742 Active Lux [place]idge [place] [facility] [place] 2 14:26:27 Nausea 538604987 Active Lux [place] [facility] [place] 2 14:26:27 Gastroesop hageal reflux disease 313725076 Active Darren Duncan PA-C [address], [place], [address] , [place] [facility] [place] 5 15:38:17 Type 2 diabetes mellitus without complicati on 331166809 Active Lux [place] [facility] [place] 2 14:26:27 Heterozygo us Factor V Leiden mutation 221003338 Active Lux [place], [place] [facility] [place] 2 14:26:27 Cerebrovas cular accident 193608469 Active Lux [place], [place] [facility] [place] 2 14:26:27 Abdominal aortic atheroscle rosis 231816128 Active Lux [place], [place] [facility] [place] 2 14:26:27 Acid reflux 274091936 Active Lux [place] [facility] [place] 2 14:26:27 Hypothyroi dism 27998575 Active Lux Everidge [place], [place] [facility] [place] 2 14:26:27 Abdominal pain 36290076 Active Lux [place]idge [place], [place] [facility] [place] 2 14:26:27 Constipati on 38002911 Active Lux [place], [place] [facility] [place] 2 14:26:27 Urinary incontinen ce 434471021 Active Lux [place], [place] [facility] [place] 2 14:26:27 Chronic mood disorder 7127469566748 08 Active 2022 Meghan Goldberg MD [address], [place], [address] , [place] [facility] [place] 3 13:33:16 Anxiety 11871079 Active 2022 Meghan Goldberg MD [address], [place], [address] , [place] [facility] [place] 3 13:33:24 Lesion of liver 222161304 Active 2022 Darren Duncan PA-C [address], [place], [address] , [place] [facility] [place] 3 15:11:32 Left upper quadrant pain 302166411 Active 2022 Darren Duncan PA-C [address], [place], [place], [address] [place] [address] , [place] [facility] [place] 3 15:11:39 Abdominal distension , gaseous 147720652 Active 2022 Darren Duncan PA-C [address], [place], [address] , [place] [facility] & [place] 3 15:11:51 Irritable bowel syndrome characteri zed by constipati on 087088753 Active 2022 Darren Duncan PA-C [address], [place], [address] , [place] [facility] [place] 5 15:52:29 Exocrine pancreatic insufficie ory 65452891 Active 2022 Darren Duncan PA-C [address], [place], [address] , [place] [facility] & [place] 3 15:30:22 Problem Notes None recorded. Procedures Surgical History Date Name Laterality Status Provider Name and Address Organization Details Recorded Time Hysterectomy completed Lux Ward [place] [facility] [place] & [place] 04/04/2022 14:31:13 Gallbladder Surgery completed Lux Ward [place] [facility] [place] & [place] 04/04/2022 14:31:18 Appendectomy completed Lux Ward [place] [facility] [place] 04/04/2022 14:31:23 Thyroidectomy completed Lux Ward [place] [facility] [place] & [place] 04/04/2022 14:31:28 Imaging Results None recorded. Procedure Notes None recorded. Medical Equipment None Reported. Allergies Allergen ID Allergen Name Allergen Category Reaction Reaction Severity Criticality Documentation Date Start Date Code Code System Note Provider Name and Address Organization Details Recorded Time 64949 Ceclor medicatio n Not available Not available Not available 03/10/202294542 5 RxNorm Magy Peck null, [place] - [facility] & [place] 2 11:14:09 81691 codeine medicatio n Not available Not available Not available 04/04/2022 2670 RxNorm [place] - [facility] & [place] 2 14:26:17 Medications Name Sig Start Date [...] in Arterial blood by Pulse oximetry Systolic And Diastolic Provider Name and Address Organization Details Last Updated DateTime 5 170.18 cm 25.5 kg/m2 46573.9 2 g 97.9 [degF] 77 /min 72 /min 97 % 97 % 119/70 mm[Hg] [facility] [place] 5 11:45:11 Date Recorded Body height Body mass index (BMI) Body weight Body temperature Heart rate Heart rate Oxygen saturation Oxygen saturation in Arterial blood by Pulse oximetry Systolic And Diastolic Provider Name and Address Organization Details Last Updated DateTime 5 170.18 cm 25.6 kg/m2 38667.3 5 g 97.4 [degF] 80 /min 75 /min 98 % 98 % 106/69 mm[Hg] [facility] [place] 5 14:52:06 Date Recorded Body height Body mass index (BMI) Body weight Body temperature Oxygen saturation Oxygen saturation in Arterial blood by Pulse oximetry Heart rate Systolic And Diastolic Provider Name and Address Organization Details Last Updated DateTime 5 170.18 cm 25.7 kg/m2 05881.7 9 g 98.4 [degF] 96 % 96 % 80 /min 112/66 mm[Hg] Meghan Lorenzo [facility] & [place] 5 14:29:22 Date Recorded Body height Body mass index (BMI) Body weight Heart rate Heart rate Oxygen saturation Oxygen saturation in Arterial blood by Pulse oximetry Body temperature Systolic And Diastolic Provider Name and Address Organization Details Last Updated DateTime 4 170.18 cm 26.7 kg/m2 42397.4 2 g 77 /min 74 /min 96 % 96 % 98.1 [degF] 169/71 mm[Hg] Maite Chan [facility] & [place] 4 09:42:56 Date Recorded Body height Body mass index (BMI) Body weight Body temperature Oxygen saturation Oxygen saturation in Arterial blood by Pulse oximetry Heart rate Systolic And Diastolic Provider Name and Address Organization Details Last Updated DateTime 4 170.18 cm 26.6 kg/m2 93537.7 g 96.9 [degF] 95 % 95 % 97 /min 118/78 mm[Hg] Adelso Hinojosa [facility] & [place] 4 13:58:10 Social History Question Answer Notes LastModified by [employer] Details LastModified Time Tobacco Smoking Status Current Every Day Smoker [facility] & [place] 04/04/2022 14:30:16 How Much Tobacco Do You Smoke? 0.25 PPD Information not available 04/04/2022 How Many Years Have You Smoked Tobacco? 60 Information not available 04/04/2022 Sex: Unknown Functional Status Question Answer Note LastModified by [employer] Details LastModified Time Do you use any [...] 13:48:04 Medical History Condition Response None Y COPD Y Lung Disease Y Clotting Disorder Y Spine Problems Y Obstructive Sleep Apnea Y Obesity Y Arthritis Y Stroke Y High Cholesterol Y Psychiatric/Mental Health Condition Y Headaches Y Thyroid Problems Y GI Problems Y Osteoporosis/Osteopenia Y Neurological Problems Y Diabetes Y Back Problems Y Reflux/GERD Y Heart Disease Y Gynecological HistoryNo gynecological history recorded. Obstetrics History GPAL:G 0 P 0 0 0 0 Immunizations Vaccine Type Date Status Note Provider Nam e and Address Organization Details Recorded Time Influenza, split virus, quadrivalent, PF 1 completed Lux [place] null, [place] [facility] [place] & [place] 04/04/2022 14:32:16 COVID-19 vaccine, vector-nr, rS-Ad26, PF, 0.5 mL 1 completed Lux Ward [place], [place] [facility] [place] 04/04/2022 14:32:16 Pneumococcal conjugate PCV20, polysaccharide [id number] conjugate, adjuvant, PF 2 completed Lux [place], [place] [facility] [place] & [place] 04/04/2022 14:32:16 COVID-19, mRNA, LNP-S, PF, 30 mcg/0.3 mL dose, marito-sucrose 2 completed Lux [place], [place] [facility] [place] & [place] 04/04/2022 14:32:16 Past Encounters Encounter ID Performer Location Encounter Start Date Encounter Closed Date Diagnosis/Indication Diagnosis SNOMED-CT Code Diagnosis ICD10 Code Diagnosis Note [id number] Patrice Miller MD [facility] [address] [place] [address] 03/10/2022 10:33:26 03/10/2022 12:07:12 Abdominal pain 94982442 R10.9 Chronic id iopathic constipation 04260781 K59.04 Nausea 696674675 R11.0 [id number] Meghan Goldberg MD [address] [place] [address] 04/04/2022 14:12:31 04/04/2022 14:53:18 Gastroesophageal reflux disease 994262214 K21.00 Nausea 330377592 R11.0 Major depr essive disorder 305491333 F32.9 Anxiety 43681554 F41.9 [id number] Meghan Goldberg MD [address] [place] [address] 05/09/2022 12:50:17 05/09/2022 13:33:30 Anxiety 88052455 F41.9 she is agreeable to trying 1/2 of the 7.5mg tablet once a day to work up to the BID dosing but declines 5mg rx. Mood disorder 15433397 F 37 pt declines any new meds, I provided the number to [facility] and asked that she please call today for an appt Nausea 147857971 R11.0 she asks for refill for prn use Chronic id iopathic constipation 25975048 K59.04 [id number] Pippa Medina MD [facility] General Surgery [address] [place] [address],[address] [place] [address] 08/24/2022 13:58:50 08/24/2022 14:43:01 Mass of left adrenal gland 0987651343 4953414 E27.8 new left-sided adrenal mass. I have ordered 24 hour urine and plasma labs. I will contact patient with the results. We discussed that small, nonfunctio vane adenomas will likely be followed for a period of time. Functionin g masses or ones that enlarged over time we will require excision, and she would be referred to [facility] for this. [id number] Darren Duncan PA-C [facility] [address] [place] [address] 03/06/2023 13:52:11 03/06/2023 15:22:51 Lesion of liver 676335416 K76.9 Left upper quadrant pain 863945718 R10.12 Abdominal distension, gaseous 347986671 R14.0 Irritable bowel syndrome characterized by constipation 609275976 K58.1 [id number] Darren Duncan PA-C [facility] [address] [place] [address] 02/29/2024 09:30:42 02/29/2024 11:05:29 Lesion of liver 052039713 K76.9 Left upper quadrant pain 853151618 R10.12 Abdominal distension, gaseous 325580278 R14.0 Irritable bowel syndrome characterized by constipation 964521145 K58.1 Chronic pancreatitis 235 544123 K86.1 Exocrine p ancreatic insufficiency 10312796 K86.81 [id number] Darren Duncan PA-C [facility] [place] [address] 03/26/2024 13:47:22 03/26/2024 14:43:37 Chronic pancreatitis 433498623 K86.1 Exocrine p ancreatic insufficiency 21656809 K86.81 Patient has an MRI abd/pelvis scheduled on 04/16 by her PCP at [facility]. Chronic id iopathic constipation 78408533 K59.04 Left sided abdominal pain 522298190 R10.9 [id number] Darren Duncan PA-C [facility] [place] [address] 07/22/2024 11:37:53 07/22/2024 12:29:14 Left sided abdominal pain 944232731 R10.9 Chronic id iopathic constipation 12473348 K59.04 Chronic pancreatitis 235 041569 K86.1 Disorder of rectum 68220 04 N81.6 [id number] WEI Lui-C [facility] [place] [address] 09/01/2024 14:42:37 09/01/2024 16:11:17 Disorder of rectum 0783023 N81.6 Left sided abdominal pain 294302907 R10.9 Chronic pancreatitis 235 929507 K86.1 Upper abdominal pain 831 04905 R10.10 Irritable bowel syndrome characterized by constipation 566872498 K58.1 [id number] Darren Duncan PA-C [facility] [place] [address] 11/03/2024 14:22:03 11/03/2024 15:53:54 Left sided abdominal pain 423695719 R10.9 Chronic pancreatitis 235 274161 K86.1 Etiology is not known. Recent CT pancreas protocol showed course pancreatic calcificat ions. External hemorrhoids 239 72173 K64.4 Chronic id iopathic constipation 29501843 K59.04 Cystocele 326377360 N81. 10 Health Concerns Section Related Observation LastModified by Organization Detai ls LastModified Time None Recorded Concern Status LastModified by Organization Details LastModified Time None Recorded Advance Directives Directive None Recorded Payers Insurance Date Sequence Insurance Name Policy Number Policy Gallardo Covered Member ID Gallardo Member ID Guarantor Name 02/29/2024 1 [place] [id number] Rox M Whitfield [id number] Rox Whitfield 02/29/2024 1 [employer] (MEDICARE REPLACEMENT/ ADVANTAGE - PPO) Rox Whitfield [id number] Rox Whitfield 02/29/2024 1 [employer] [place] Rox Whitfield [id number] Rox Whitfield 02/29/2024 3 [employer] (MEDICARE REPLACEMENT/ ADVANTAGE - HMO) Rox M Whitfield [id number] Rox Whitfield 02/29/2024 1 [employer] [place]/ [place]VANT[place] - HMO) Rox Whitfield [id number] Rox Whitfield 02/29/2024 1 [place] Rox M Whitfield [id number] Rox Whitfield 02/29/2024 1 [employer] (MEDICARE REPLACEMENT/ ADVANTAGE - HMO) Rox Whitfield [id number] Rox Whitfield 11/04/2024 1 [employer] (MEDICARE REPLACEMENT/ ADVANTAGE - PPO) Rox Whitfield [id number] Rox Whitfield 02/29/2024 1 [employer] (MEDICARE REPLACEMENT/ ADVANTAGE - HMO) Rox M Whitfield [id number] Rox Whitfield 02/29/2024 2 [employer] (MEDICARE REPLACEMENT/ ADVANTAGE - HMO) Rox Whitfield [id number] Rox Whitfield 02/29/2024 1 [employer] [place] Rox Whitfield [id number] Rox Whitfield 02/29/2024 1 [employer] (MEDICARE REPLACEMENT/ ADVANTAGE - HMO) Rox Whitfield [id number] Rox Whitfield Notes Date Note Type Note Provider Name and Address Organization Details Recorded Time 02/29/2024 text/html CURRENT (): Ms. Whitfield presents to the office today [...] overt constipation is noted. Darren Duncan PA-C [address] [facility], [place], [address], [place] [facility] [place] & [place] 02/29/2024 14:47:59 03/26/2024 text/html CURRENT (): Ms. Whitfield presents to the office today [...] vomiting, or blood stools. Darren Duncan PA-C [address], [place], [address], [facility] & [place] 03/26/2024 15:30:09 07/22/2024 text/html CURRENT (07/22/24 ): [...] days. Darren Duncan PA-C [address], [place], [address], [facility] & [place] 07/22/2024 21:10:42 09/01/2024 text/html CURRENT (09/01/24 ): [...] distension in the LLQ. Darren Duncan PA-C [address], [place], [address], [place] [facility] [place] & [place] 09/02/2024 21:55:38 11/03/2024 text/html PREVIOUS ( 5): Ms. Whitfield returns to the office today for follow-up regarding LLQ pain, constipation, and abdominal bloating/distension. She was recent referred to [facility] for suspected rectocele. She has a consultation [...] distension in the LLQ. CURRENT (11/03/24): Ms. Whitfield returns to the office today for follow-up regarding lower abdominal pain, constipation, bloating, and distension. She recently underwent CT imaging for surveillance of pancreatic cystic lesions. No focal pancreatic lesions were seen, although coarse pancreatic calcifications were noted. She recently saw Dr. Bowling at [facility] and is being treated for prolapsing internal [...] intervention for prolapsed bladder. Darren Duncan PA-C [address], [place], [address], [place] [facility] [place] 11/04/2024 09:29:45 OBGyn Episode No OBEpisode recorded.
--- OUTSIDE RECORDS SUMMARY | 2024-11-09 18:58 | XMS_ITS | Continuity of Care Document ---
Author Organization [place] - [facility], [facility]Nursing Schedule Address [address] [place] [address] Care Team Providers Care Sales Team Manager Name Role Phone MIRZA MASON Primary [...] Modified By Organization Details Last Modified Time 10/24/2024 [id number] The member is cu rrently located in [place]. Pre-CallReview Readings Pre-call review started at 2024-10-24 13:53 EDT Glucometer Readings: Glucose 7-day fasting average: 108, non-fasting average: undefined Glucose 30-day fasting average: 106, non-fasting average: 145 Review Notes Most recent [...] Confirmation The member is currently located in [place]. The member is willing and able to complete the call. Clinical ReviewMember Readings Members readings were reviewed with the member Member Health Updates Member reported no allergy and/or medication changes Medication ReconciliationThe member was due for a medication reconciliation because of either an upcoming provider follow-up or a request to perform one in the member's care plan. The medication reconciliation was completed. Notes: Already done. Has been having trouble with bout of diverticulitis. Went to ER over the weekend. Received abx, has 3 days left. Member Height and Weight Height: 5 ft 3 in Weight: 160 Clinical Goals Goal: Fasting glucose less than 130 mg/DL Status: On Track Current Value: 106 Goal: Non-fasting glucose less than 180 mg/DL Status: On Track Current Value: 145 Member Goals Goal: Walk after meals 10-15 mins. Status: On Track Current Value: Clinical Coaching The member was coached on the following topics: Diet Follows NCS diet. Drinking pedialyte, water and gatorade, sugar free. Exercise Walking 10 minutes after meals. General Education Encouraged member to follow diet for diverticulosis. Gave her basic info and encouraged her to discuss more in depth with her provider. Next StepsConfirm Next Appointments Confirmed the next [place] appointment with the member on 2024-11-21 14:00 EDT. Post-Call DocumentationPerformed By Anjelica Aiken Time spent 14 minutes. [email or web address] Not available 10/24/2024 14:06:56 Reason for Referral None Reported. Problems Name Problem SNOMED Code Status Onset Date Resolution Date Notes Provider Name and Address Organization Details Recorded Time Type 2 diabetes mellitus 27514228 Active 2022 ANGELICA DOMINGUEZ SECORY null, [place] - [facility] 3 10:32:52 Essential hypertension 75688235 Active 2022 ANGELICA DOMINGUEZ SECORY null, [place] - [facility] 3 10:32:49 Osteoporosis 77102221 Active 2022 Kassandra Weston null, [place] - [facility] 3 13:23:41 Osteoarthritis 103924411 Active 2022 Kassandra Weston null, [place] - [facility] 3 13:23:50 Spinal stenosis 27310879 Active 2022 Kassandra Weston null, [place] - [facility] 3 13:24:00 Diabetes mellitus 01471353 Active 2022 ANGELICA FarrarCharan SECORY null, [place] - [facility] 3 15:35:53 Anxiety 74303736 Active 2024 Garfield Quinonez NP [address] , [place], [address], [place] - [facility] 5 09:13:57 Pulmonary emphysema 74166104 Active 2024 Garfield Quinonez NP [address] , [place], [address], [place] [facility] 5 09:14:23 Coronary arterioscleros is 92526048 Active 2024 Garfield Quinonez NP [address] , [place], [address], [place] [facility] 5 09:16:09 Atrial fibrillation 71163942 Active 2024 Garfield Quinonez NP [address] , [place], [address], [place] [facility] 5 09:16:19 Depressive disorder 99080790 Active 2024 Garfield Quinonez NP [address] , [place], [address], [place] [facility] 09:16:44 Hyperlipidemia 79785823 Active 2024 Garfield Quinonez NP [address] , [place], [address], [place] [facility] 5 09:17:01 Postoperative hypothyroidism 01086874 Active 2024 Garfield Quinonez NP [address] , [place], [address], [place] [facility] 09:17:48 History of cerebrovascula r accident 259325274 Active 2024 Garfield Quinonez NP [address] , [place], [address], [place] [facility] 09:19:05 Problem Notes None recorded. Procedures Surgical History Date Name Laterality Status Provider Name and Address Organization Details Recorded Time [facility] 10:13:31 [facility] 10:13:58 [facility]23 10:14:03 [facility]23 10:14:08 bilateral cataract extraction completed Garfield Quinonez NP [address], [place], [address], [facility] 10/08/2024 09:19:37 Imaging Results None recorded. Procedure Notes None recorded. Medical Equipment None Reported. Allergies Allergen ID Allergen Name Allergen Category Reaction Reaction Severity Criticality Documentation Date Start Date Code Code System Note Provider Name and Address Organization Details Recorded Time Ceclor medicatio n Not available Not available Not available 03/13/2023 89344 5 [facility] 10:13:01 codeine medicatio n Not available Not available Not available 03/13/2023 2670 RxNorm Burke More [facility] 3 10:13:06 Medications Name Sig Start [...] Social History Question Answer Notes LastModified by [email or web address] Details LastModified Time Tobacco Smoking Status Current Some Day Smoker Burke Angelaers [facility] 03/13/2023 10:13:25 What Is Your Level Of Caffeine Consumption? Moderate [email or web address] Information not available 03/13/2023 How Much Tobacco Do You Smoke? 0.5 PPD [email or web address] Information not available 10/08/2024 Sex: Unknown Functional Status Question Answer Note LastModified by [email or web address] Details LastModified Time Do you use any illicit or recreational drugs? No [email or web address] Information not available 03/13/2023 Do you or have you ever used any other forms of tobacco or nicotine? No [email or web address] Information not available 03/13/2023 What is your level of alcohol consumption? None Information not available 03/13/2023 Mental Status None [...] SNOMED-CT Code Diagnosis ICD10 Code Diagnosis Note [id number] ERROL [facility] [address] [place] [address] 09/26/2024 14:24:11 09/26/2024 14:42:18 Type 2 diabetes mellitus 32547919 E11.65 Type 2 diabetes mellitus 729759 ERR[facility] [address] [place] [address] 09/30/2024 11:58:12 09/30/2024 12:00:40 Type 2 diabetes mellitus 82438088 E11.65 Type 2 diabetes mellitus 425336 Garfield Quinonez NP [facility] Schedule [address] [place] [address] 10/08/2024 09:10:56 10/08/2024 09:29:13 Type 2 diabetes mellitus 29200696 E11.65 Diabetes Ongoing Care Plan -Continue RPM [...] intake and water's role in decreasing glucose. [id number] ERROL [facility] Schedule [address] [place] [address] 10/24/2024 13:53:25 10/24/2024 14:06:56 Type 2 diabetes mellitus 47792914 E11.65 Type 2 diabetes mellitus Goals Section Goal Description Progress Status Start Date LastModified by Organization Details LastModified Time Diabetes Diet Maintain a diabetes diet as recommended by your care team Cassie active Valerie Rizo Information not available 06/04/2023 [...] Member ID Gallardo Member ID Guarantor Name 10/24/2024 1 [employer] (MEDICARE REPLACEMENT/A DVANTAGE - PPO) Rox Whitfield [id number] Rox Whitfield OBGyn Episode No OBEpisode recorded.
--- OUTSIDE RECORDS SUMMARY | 2024-11-09 18:58 | XMS_ITS | Continuity of Care Document ---
Author Organization [place] - [facility], PS_Provider Schedule Address [address] [place] [address] Care Team Providers Care Counter Roller Name Role Phone MIRZA MASON Primary Care Provider [phone] Assessment No assessment recorded. Plan of Treatment [...] By Organization Details Last Modified Time 10/08/2024 [id number] [facility] goal of Blood Pressure 130/80 Not available Not available Not available hot roller goal of Hemoglobin A1C < 7% Not available Not available Not available hot roller goal of Glucose, Fasting < 130 Not available Not available Not available [facility] goal of Glucose, 2 Hour Postprandial < 180 Not available Not available Not available hot roller goal of LDL Direct < 70 mg/dL Not available Not available Not available Avoidance of hypoglycemia (any glucose <70) Glucose Test Frequency: QD Fasting [email or web address] Not available 10/08/2024 09:24:58 Patient Instructions Encounter Date Encounter Id Patient Instructions Last Modified By Organization Details Last Modified Time 10/08/2024 [id number] Ms. Whitfield is a(n ) 74 year [...] the [place]. Does the member have the [employer] denis downloaded? No, member declined Next [place] appointment is confirmed on 10/24/2024 between 02:00 PM and 03:00 PM Eastern Time. Was there a need during this visit to complete a Member Service Request? No. If yes, provide a summary of the request. [email or web address] Not available 10/08/2024 09:28:47 Reason for Referral None Reported. Problems Name Problem SNOMED Code Status Onset Date Resolution Date Notes Provider Name and Address Organization Details Recorded Time Type 2 diabetes mellitus 20391279 Active 2022 ANGELICA DOMINGUEZ SECORY null, [place] - [facility] 3 10:32:52 Essential hypertension 29414698 Active 2022 ANGELICA DOMINGUEZ SECORY [place] [facility] 3 10:32:49 Osteoporosis 29834139 Active 2022 Kassandra Weston null, [place] - [facility] 3 13:23:41 Osteoarthritis 660613290 Active 2022 Kassandra Weston null[place] [facility] 3 13:23:50 Spinal stenosis 70413333 Active 2022 Kassandra Weston [place] [facility] 3 13:24:00 Diabetes mellitus 54976062 Active 2022 ANGELICA DOMINGUEZ SECORY [place], [place] - [facility] 3 15:35:53 Anxiety 04300251 Active 2024 Garfield Quinonez NP [address] , [place], [address], [place] [facility] 5 09:13:57 Pulmonary emphysema 80257517 Active 2024 Garfield Quinonez NP [address] , [place], [address], [place] [facility] 5 09:14:23 Coronary arterioscleros is 06920249 Active 2024 Garfield Quinonez NP [address] , [place], [address], [place] [facility] 5 09:16:09 Atrial fibrillation 61982607 Active 2024 Garfield Quinonez NP [address] , [place], [address], [place] [facility] 5 09:16:19 Depressive disorder 88477824 Active 2024 Garfield Quinonez NP [address] , [place], [address], [place] [facility] 5 09:16:44 Hyperlipidemia 64639436 Active 2024 Garfield Quinonez NP [address] , [place], [address], [place] [facility] 5 09:17:01 Postoperative hypothyroidism 33207990 Active 2024 Garfield Quinonez NP [address] , [place], [address], [place] [facility] 5 09:17:48 History of cerebrovascula r accident 133686338 Active 2024 Garfield Quinonez NP [address] , [place], [address], [place] [facility] 09:19:05 Problem Notes None recorded. Procedures Surgical History Date Name Laterality Status Provider Name and Address Organization Details Recorded Time Thyroidectomy completed Burke [facility] 03/13/2023 10:13:31 Gallbladder Surgery completed Burke [facility] 03/13/2023 10:13:58 [facility] 03/13/2023 10:14:03 Appendectomy completed Burke [facility] 03/13/2023 10:14:08 bilateral cataract extraction completed Garfield Quinonez NP [address], [place], [address], [facility] 10/08/2024 09:19:37 Imaging Results None recorded. Procedure Notes None recorded. Medical Equipment None Reported. Allergies Allergen ID Allergen Name Allergen Category Reaction Reaction Severity Criticality Documentation Date Start Date Code Code System Note Provider Name and Address Organization Details Recorded Time Ceclor medicatio n Not available Not available Not available 03/13/2023 44419 5 RxNorm Burke quezada, [facility] 3 10:13:01 [...] Updated DateTime 10/08/2024 160.02 cm 29.6 kg/m2 15374.93 g Garfield Quinonez NP [address], [place], [address], [facility] 10/08/2024 09:12:56 Social History Question Answer Notes LastModified by [employer] Details LastModified Time Tobacco Smoking Status Current Some Day Smoker Burke Derik quezada, [facility] 03/13/2023 10:13:25 What Is Your Level Of Caffeine Consumption? Moderate [email or web address] Information not available 03/13/2023 How Much Tobacco Do You Smoke? 0.5 PPD [email or web address] Information not available 10/08/2024 Sex: Unknown Functional Status Question Answer Note LastModified by [employer] Details LastModified Time Do you use any illicit or recreational drugs? No [email or web address] Information not available 03/13/2023 Do you or have you ever used any other forms of tobacco or nicotine? No [email or web address] Information not available 03/13/2023 What is your level of alcohol consumption? None [email or web address] Information not available 03/13/2023 Mental Status None [...] SNOMED-CT Code Diagnosis ICD10 Code Diagnosis Note [id number] Garfiedl Quinonez NP [facility] Schedule [address] [place] [address] 09/12/2024 14:30:22 09/12/2024 14:48:17 Type 2 diabetes mellitus 19685820 E11.65 Type 2 diabetes mellitus 829686 Garfield Quinonez NP [facility] Schedule [address] [place] [address] 09/26/2024 14:24:11 09/26/2024 14:42:18 Type 2 diabetes mellitus 41895732 E11.65 Type 2 diabetes mellitus 223241 Garfield Quinonez NP [facility] Schedule [address] [place] [address] 09/30/2024 11:58:12 09/30/2024 12:00:40 Type 2 diabetes mellitus 00294035 E11.65 Type 2 diabetes mellitus 884448 Garfield Quinonez NP [facility] Schedule [address] [place] [address] 10/08/2024 09:10:56 10/08/2024 09:29:13 Type 2 diabetes mellitus 38467889 E11.65 Diabetes Ongoing Care Plan -Continue RPM [...] (MEDICARE REPLACEMENT/A DVANTAGE - PPO) Rox Whitfield [id number] Rox Whitfield Notes Date Note Type Note [...] is located in at time of call: [place] - Patient Location at time of visit: Home If location today is outside the state in [place] home address, has patient moved?N/AIf patient has moved, was address updated in [facility]?N/A Recent illnesses or hospitalizations: . Diet:Low [...] Quinonez, ERROL [address], [place], [address], [place] - [facility] 10/08/2024 09:28:49 OBGyn Episode No OBEpisode recorded.
--- OUTSIDE RECORDS SUMMARY | 2024-11-09 18:58 | XMS_ITS | Continuity of Care Document ---
Author Organization [place] - [facility], [facility]Nurs[facility] Schedule Address [address] [place] [address] Care Team Providers Care Reliability Technician Name Role Phone MIRZA MASON Primary Care [...] By Organization Details Last Modified Time 09/26/2024 [id number] The member is cu rrently located in [place]. Pre-CallReview Readings Pre-call review started at 2024-09-26 [...] Confirmation The member is currently located in [place]. The member is willing and able to [...] Details Recorded Time Type 2 diabetes mellitus 02039003 Active 2022 ANGELICA DOMINGUEZ SECORY null, [place] - [facility] 3 10:32:52 Essential hypertension 14832640 Active 2022 ANGELICA DOMINGUEZ SECORY null, [place] - [facility] 3 10:32:49 Osteoporosis 61563307 Active 2022 Kassandra Weston null, [place] - [facility] 3 13:23:41 Osteoarthritis 024852646 Active 2022 Kassandra Weston null, [place] - [facility] 3 13:23:50 Spinal stenosis 12084127 Active 2022 Kassandra Weston null, [place] - [facility] 3 13:24:00 Diabetes mellitus 37168661 Active 2022 ANGELICA DOMINGUEZ SECORY null, [place] - [facility] 3 15:35:53 Anxiety 77295602 Active 2024 Garfield Quinonez NP [address] , [place], [address], [place] - [facility] 5 09:13:57 Pulmonary emphysema 77591261 Active 2024 Garfield Quinonez NP [address] , [place], [address], [place] [facility] 5 09:14:23 Coronary arterioscleros is 64650843 Active 2024 Garfield Quinonez NP [address] , [place], [address], [place] [facility] 5 09:16:09 Atrial fibrillation 25727661 Active 2024 Garfield Quinonez NP [address] , [place], [address], [place] [facility] 5 09:16:19 Depressive disorder 09326498 Active 2024 Garfield Quinonez NP [address] , [place], [address], [place] [facility] 5 09:16:44 Hyperlipidemia 59900970 Active 2024 Garfield Quinonez NP [address] , [place], [address], [place] [facility] 5 09:17:01 Postoperative hypothyroidism 73964472 Active 2024 Garfield Quinonez NP [address] , [place], [address], [place] [facility] 5 09:17:48 History of cerebrovascula r accident 883636349 Active 2024 Garfield Quinonez NP [address] , [place], [address], [place] [facility] 5 09:19:05 Problem Notes None recorded. Procedures Surgical History Date Name Laterality Status Provider Name and Address Organization Details Recorded Time Thyroidectomy completed Burke More [place] - [facility] 03/13/2023 10:13:31 Gallbladder Surgery completed Burke Angelaers [place] - [facility] 03/13/2023 10:13:58 Hysterectomy completed Burke Angelaers [place] - [facility] 03/13/2023 10:14:03 Appendectomy completed Burke More [facility] 03/13/2023 10:14:08 bilateral cataract extraction completed Garfield Quinonez, ERROL [address], [place], [address], [facility] 10/08/2024 09:19:37 Imaging Results None recorded. Procedure Notes None recorded. Medical Equipment None Reported. Allergies Allergen ID Allergen Name Allergen Category Reaction Reaction Severity Criticality Documentation Date Start Date Code Code System Note Provider Name and Address Organization Details Recorded Time Ceclor medicatio n Not available Not available Not available 03/13/202317165 5 RxNorm Burke quezada, [facility] 3 10:13:01 codeine medicatio n Not available Not available Not available 03/13/2023 2670 RxNorm Burke quezada, [facility] 3 10:13:06 Medications Name Sig Start [...] Status Current Some Day Smoker Burke Angelaers [facility] [place], [place] - [facility] 03/13/2023 10:13:25 What Is Your Level Of Caffeine Consumption? Moderate [email or web address] Information not available 03/13/2023 How Much Tobacco Do You Smoke? 0.5 PPD [email or web address] Information not available 10/08/2024 Sex: Unknown Functional Status Question Answer Note LastModified by Organ[employer] ion Details LastModified Time Do you use any illicit or recreational drugs? No [email or web address] Information not available 03/13/2023 Do you or have you ever used any other forms of tobacco or nicotine? No [email or web address] Information not available 03/13/2023 What is your level of alcohol consumption? None [email or web address] Information not available 03/13/2023 Mental Status None recorded. Family History Nothing Reported. Medical History Condition Response Coronary Artery Disease Y Other Y Hyperthyroidism N COPD Y Depression Y Hypothyroidism Y Anxiety Disorder Y Diabetes Y Obesity N Vision or Eye Problems Y Arthritis Y Congestive Heart Failure (CHF) N Cancer N Stroke Y Asthma N Sleep Apnea N High Cholesterol Y Neuropathy N Hypertension Y Kidney Disease N Gynecological HistoryNo gynecological history recorded. Obstetrics History GPAL:G 0 P 0 0 0 0 Past Encounters Encounter ID Performer Location Encounter Start Date Encounter Closed Date Diagnosis/Indication Diagnosis SNOMED-CT Code Diagnosis ICD10 Code Diagnosis Note [id number] ERROL [facility] Schedule [address] [place] [address] 08/29/2024 14:34:14 08/29/2024 14:52:41 Diabetes mellitus 84828921 E11.9 Diabetes mellitus 973081 Garfield Quinonez NP [facility] Schedule [address] [place] [address] 08/29/2024 16:25:25 08/29/2024 16:44:57 Diabetes mellitus 74224296 E11.9 Diabetes mellitus Type 2 serafin betes mellitus 97283506 E11.65 Type 2 diabetes mellitus Essential hypertension 42184723 I10 Essential hypertensi on 919174 Garfield Quinonez NP [facility] Schedule [address] [place] [address] 09/01/2024 15:45:13 09/01/2024 15:50:55 Diabetes mellitus 15904400 E11.9 Diabetes mellitus 960332 Garfield Quinonez NP [facility] Schedule [address] [place] [address] 09/12/2024 14:30:22 09/12/2024 14:48:17 Type 2 diabetes mellitus 93982628 E11.65 Type 2 diabetes mellitus 217960 ERROL [facility] Schedule [address] [place] [address] 09/26/2024 14:24:11 09/26/2024 14:42:18 Type 2 diabetes mellitus 59575737 E11.65 Type 2 diabetes mellitus Goals Section [...] Gallardo Member ID Guarantor Name 09/26/2024 1 [employer] (MEDICARE REPLACEMENT/A DVANTAGE - PPO) Rox Whitfield [id number] Rox Whitfield OBGyn Episode No OBEpisode recorded.
--- OUTSIDE RECORDS SUMMARY | 2024-11-09 18:58 | XMS_ITS | Continuity of Care Document ---
Author Organization [place] - [facility], [facility]Nursing Schedule Address [address] [place] [address] Care Team Providers Care Cashier Receptionist Name Role Phone MIRZA MASON Primary Care [...] By Organization Details Last Modified Time 09/12/2024 [id number] The member is cu rrently located in [...] Details Recorded Time Type 2 diabetes mellitus 02030524 Active 2022 ANGELICA DOMINGUEZ SECORY null, [place] - [facility] 3 10:32:52 Essential hypertension 47591385 Active 2022 ANGELICA DOMINGUEZ SEC[place] - [facility] 3 10:32:49 Osteoporosis 68582167 Active 2022 Kassandra Weston [place] - [facility] 3 13:23:41 Osteoarthritis 352914840 Active 2022 Kassandra [place] [facility] 3 13:23:50 Spinal stenosis 30504692 Active 2022 Kassandra Weston [place] - [facility] 3 13:24:00 Diabetes mellitus 67759372 Active 2022 ZZ JUAN MANUEL ZZ SECORY null, [place] - [facility] 3 15:35:53 Anxiety 99272705 Active 2024 Garfield Quinonez NP [address] , [place], [address], [facility] 5 09:13:57 Pulmonary emphysema 20494627 Active 2024 Garfield Quinonez NP [address] , [place], [address], [facility] 5 09:14:23 Coronary arterioscleros is 28612887 Active 2024 Garfield Quinonez NP [address] , [place], [address], [facility] 5 09:16:09 Atrial fibrillation 84129621 Active 2024 Garfield Quinonez NP [address] , [place], [address], [facility] 5 09:16:19 Depressive disorder 96192133 Active 2024 Garfield Quinonez NP [address] , [place], [address], [facility] 5 09:16:44 Hyperlipidemia 24587441 Active 2024 Garfield Quinonez NP [address] , [place], [address], [facility] 5 09:17:01 Postoperative hypothyroidism 15114108 Active 2024 Garfield Quinonez NP [address] , [place], [address], [facility] 5 09:17:48 History of cerebrovascula r accident 569268696 Active 2024 Garfield Quinonez NP [address] , [place], [address], [facility] 5 09:19:05 Problem Notes None recorded. Procedures Surgical History Date Name Laterality Status Provider Name and Address Organization Details Recorded Time Thyroidectomy completed [facility] 03/13/2023 10:13:31 Gallbladder Surgery completed [facility] 03/13/2023 10:13:58 Hysterectomy completed [facility] 03/13/2023 10:14:03 Appendectomy completed [facility] 03/13/2023 10:14:08 bilateral cataract extraction completed Garfield Quinonez, ERROL [address], [place], [address], [facility] 10/08/2024 09:19:37 Imaging Results None recorded. Procedure Notes None recorded. Medical Equipment None Reported. Allergies Allergen ID Allergen Name Allergen Category Reaction Reaction Severity Criticality Documentation Date Start Date Code Code System Note Provider Name and Address Organization Details Recorded Time Ceclor medicatio n Not available Not available Not available 03/13/2023 16307 5 RxNorm Burke More [facility] 3 10:13:01 00331 codeine medicatio n Not available Not available Not available 03/13/2023 2670 RxNorm Burke More [facility] 3 10:13:06 Medications Name Sig Start [...] Smoking Status Current [facility]23 10:13:25 What Is Your Level Of Caffeine Consumption? Moderate [email or web address] Information not available 03/13/2023 How Much Tobacco Do You Smoke? 0.5 PPD [email or web address] Information not available 10/08/2024 Sex: Unknown Functional Status Question Answer Note LastModified by Organizat ion Details LastModified Time Do you use any illicit or recreational drugs? No Information not available 03/13/2023 Do you or have you ever used any other forms of tobacco or nicotine? No [email or web address] Information not available 03/13/2023 What is your level of alcohol consumption? None [email or web address] Information not available 03/13/2023 Mental Status None [...] SNOMED-CT Code Diagnosis ICD10 Code Diagnosis Note 592975 ERROL [facility] Schedule [address] [place] [address] 08/15/2024 14:26:22 08/15/2024 14:42:23 Type 2 diabetes mellitus 70168372 E11.65 Type 2 diabetes mellitus 028982 Garfield Quinonez NP [facility] Schedule [address] [place] [address] 08/29/2024 14:34:14 08/29/2024 14:52:41 Diabetes mellitus 81079978 E11.9 Diabetes mellitus 851619 Garfield Quinonez NP [facility] Schedule [address] [place] [address] 08/29/2024 16:25:25 08/29/2024 16:44:57 Diabetes mellitus 10561502 E11.9 Diabetes mellitus Type 2 serafin betes mellitus 59122066 E11.65 Type 2 diabetes mellitus Essential hypertension 60166967 I10 Essential hypertensi on 099786 Garfield Quinonez NP [facility] Schedule [address] [place] [address] 09/01/2024 15:45:13 09/01/2024 15:50:55 Diabetes mellitus 32237632 E11.9 Diabetes mellitus 979422 Garfield Quinonez NP [facility] Schedule [address] [place] [address] 09/12/2024 14:30:22 09/12/2024 14:48:17 Type 2 diabetes mellitus 00114205 E11.65 Type 2 diabetes mellitus Goals Section Goal Description Progress Status Start Date LastModified by Organization Details LastModified Time Diabetes Diet Maintain a diabetes diet as recommended by your care team NoCalley active 024 Valerie Rizo Information not available [...] (MEDICARE REPLACEMENT/A DVANTAGE - PPO) Rox Whitfield [id number] Rox Whitfield OBGyn Episode No OBEpisode recorded.
--- OUTSIDE RECORDS SUMMARY | 2024-11-09 18:58 | XMS_ITS | Continuity of Care Document ---
Author Organization [place] - [facility], [facility]urs[facility] Schedule Address [address] [place] [address] Care Team Providers Care Aboriginal Education Worker Coordinator Name Role Phone MIRZA MASON Primary Care Provider [phone] Assessment No assessment recorded. Plan of Treatment [...] Modified By Organization Details Last Modified Time 10/31/2024 [id number] The member is cu rrently located in [place]. Pre-CallReview Readings Pre-call review started at 2024-10-31 13:00 EDT Glucometer Readings: Glucose 7-day fasting average: 91, non-fasting average: undefined Glucose 30-day fasting average: 104, non-fasting average: 188 Review Notes Most recent nurse notes were reviewed. Most recent provider notes were reviewed. Clinical TopicsCall InitiationConnection Connected: The member called us missed [place] call. agreed to complete visit. Recording Call The member was notified and acknowledged that the call is being recorded for quality and training purposes. Identity Confirmation The member s identity was confirmed using name and date of . Location Confirmation The member is currently located in [place]. The member is willing and able to complete the call. Clinical ReviewMember Readings Notes: She states she has not been feeling well, has been extra tired and has not been testing glucose readings as often. Reports recent ER visit, abd pain and nausea, completed CT and states she was dx with diverticulitis. She was given antibiotics-amoxicillin and Phenergran for nausea. She states today she has f/u with PCP. Members readings were reviewed with the member Clinical Goals Goal: Fasting glucose less than 130 mg/DL Status: On Track Current Value: 104 mg/DL Goal: Non-fasting glucose less than 180 mg/DL Status: Off Track Current Value: 188 mg/DL Clinical Coaching The member was coached on the following topics: Device reading frequency/timing Educated patient on importance of taking daily readings during illness. She notes at her last visit with PCP, she was advised to test BG every other day. I advised to ask about her recent A1C level so it can be noted in her chart. She verbalized understanding. General Education Keep f/u today and report any symptoms of concern. Report completed medications. Next StepsConfirm Next Appointments Confirmed the next [facility] appointment with the member on 2024-11-21 14:00 EDT. Post-Call DocumentationPerformed By Melany De La O Time spent 20 minutes. [email or web address] Not available 10/31/2024 13:20:53 Reason for Referral None Reported. Problems Name Problem SNOMED Code Status Onset Date Resolution Date Notes Provider Name and Address Organization Details Recorded Time Type 2 diabetes mellitus 36286243 Active 2022 ANGELICA DOMINGUEZ SEC[place], [place] - [facility] 3 10:32:52 Essential hypertension 89171424 Active 2022 ANGELICA FarrarZ SECORY [place] - [facility] 3 10:32:49 Osteoporosis 35849203 Active 2022 Kassandra [place] - [facility] 13:23:41 Osteoarthritis 475448062 Active 2022 Kassandra [place] [facility] 3 13:23:50 Spinal stenosis 82932297 Active 2022 Kassandra [place] - [facility] 3 13:24:00 Diabetes mellitus 12149453 Active 2022 ANGELICA FarrarZ SECORY [place] - [facility] 3 15:35:53 Anxiety 31044375 Active 2024 Garfield Quinonez , ERROL [address] , [place], [address] , [place] - [facility] 5 09:13:57 Pulmonary emphysema 48647090 Active 2024 Garfield Quinonez NP [address] , [place], [address], [facility] - [facility] 5 09:14:23 Coronary arterioscleros is 60941420 Active 2024 Garfield Quinonez NP [address] , [place], [address], [facility] 5 09:16:09 Atrial fibrillation 22842011 Active 2024 Garfield Quinonez NP [address] , [place], [address], [facility] - [facility] 5 09:16:19 Depressive disorder 75661917 Active 2024 Garfield Quinonez NP [address] , [place], [address], [facility] 5 09:16:44 Hyperlipidemia 57342950 Active 2024 Garfield Quinonez NP [address] , [place], [address], [facility] - [facility] 5 09:17:01 Postoperative hypothyroidism 19127076 Active 2024 Garfield Quinonez NP [address] , [place], [address], [facility] 5 09:17:48 History of cerebrovascula r accident 691340471 Active 2024 Garfield Quinonez NP [address] , [place], [address], [facility] 5 09:19:05 Problem Notes None recorded. Procedures Surgical History Date Name Laterality Status Provider Name and Address Organization Details Recorded Time Thyroidectomy completed [facility] 03/13/2023 10:13:31 Gallbladder Surgery completed [facility] 03/13/2023 10:13:58 Hysterectomy completed Burke [facility] 03/13/2023 10:14:03 [facility] 10:14:08 bilateral cataract extraction completed Garfield Quinonez NP [address], [place], [address], [facility] 10/08/2024 09:19:37 Imaging Results None recorded. Procedure Notes None recorded. Medical Equipment None Reported. Allergies Allergen ID Allergen Name Allergen Category Reaction Reaction Severity Criticality Documentation Date Start Date Code Code System Note Provider Name and Address Organization Details Recorded Time Ceclor medicatio n Not available Not available Not available 03/13/202354213 5 [facility] 10:13:01 codeine medicatio n Not available Not available Not available 03/13/2023 2670 RxNorm Burke [facility] 3 10:13:06 Medications Name Sig Start [...] Status Current Some Day Smoker Burke More [place], [place] - [facility] 03/13/2023 10:13:25 What Is Your Level Of Caffeine Consumption? Moderate [email or web address] Information not available 03/13/2023 How Much Tobacco Do You Smoke? 0.5 PPD [email or web address] Information not available 10/08/2024 Sex: Unknown Functional Status Question Answer Note LastModified by Organizat ion Details LastModified Time Do you use any illicit or recreational drugs? No [email or web address] Information not available 03/13/2023 Do you or have you ever used any other forms of tobacco or nicotine? No [email or web address] Information not available 03/13/2023 What is your level of alcohol consumption? None [email or web address] Information not available 03/13/2023 Mental Status None [...] SNOMED-CT Code Diagnosis ICD10 Code Diagnosis Note 288947 Garfield Quinonez NP [facility] Schedule [address] [place] [address] 09/30/2024 11:58:12 09/30/2024 12:00:40 Type 2 diabetes mellitus 19076080 E11.65 Type 2 diabetes mellitus 000017 Garfield Quinonez NP [facility]Prov[facility] er Schedule [address] [place] [address] 10/08/2024 09:10:56 10/08/2024 09:29:13 Type 2 diabetes mellitus 44888976 E11.65 Diabetes Ongoing Care Plan -Continue RPM [...] intake and water's role in decreasing glucose. 720578 ERROL [facility] Schedule [address] [place] [address] 10/24/2024 13:53:25 10/24/2024 14:06:56 Type 2 diabetes mellitus 13717640 E11.65 Type 2 diabetes mellitus 079599 Garfield Quinonez NP [facility] Schedule [address] [place] [address] 10/28/2024 13:48:53 10/28/2024 13:49:59 Diabetes mellitus 85491101 E11.9 Diabetes mellitus Type 2 serafin betes mellitus 17072514 E11.65 Type 2 diabetes mellitus Essential hypertension 90415018 I10 Essential hypertensi on 758871 ERROL [facility] Schedule [address] [place] [address] 10/31/2024 13:00:16 10/31/2024 13:20:54 Diabetes mellitus 40668792 E11.9 Diabetes mellitus Type 2 serafin betes mellitus 45411405 E11.65 Type 2 diabetes mellitus Essential hypertension 57939784 I10 Essential hypertensi on Goals Section Goal Description Progress Status Start Date LastModified by Organization Details LastModified Time Diabetes Diet Maintain a diabetes diet as recommended by your care team NoChanedmond active 024 Valerie Rizo Information not available [...] Member ID Gallardo Member ID Guarantor Name 10/31/2024 1 [employer] (MEDICARE REPLACEMENT/A DVANTAGE - PPO) Rox Whitfield [id number] Rox Whitfield OBGyn Episode No OBEpisode recorded.
--- OUTSIDE RECORDS SUMMARY | 2024-11-09 18:59 | XMS_ITS | Data Portability ---
Author Organization [facility] SHELLI Sanz HADLEY CLOSED Address [address] [place] [address] Care Team Providers Care Manager Mail Name Role Phone GERTRUDE BARTON Primary Care Provider KARLA PRADO Referring Provider [phone] Assessment Encounter Date Assessment Date Assessment LastModified [...] a repeat MRI cervical spine within the [facility] system see if a better determination of the true degree of foraminal stenosis can be determined. I will trial her on Flexeril for her neck pain. Lastly, I will refer her to pain management for a right C5-6 TFESI determine if she notes any improvement in her shoulder pain with this injection. We will see her back after completion of the above. Not available 02/27/2023 16:09:52 03/12/2023 03/12/2023 This [...] cervical transforami nal (PROC) 2022 023 [id number] [facility] Professional Charges, [address], [place], [address], 12:08:09 Surgeries None recorded. Imaging None recorded. Medication Orders None recorded. Patient TargetsNo targets recorded. Patient Instructions Encounter Date Encounter Id Patient Instructions Last Modified By Organization Details Last Modified Time 03/12/2023 [id number] cardiac clearance* - Requesting clearance to hold Plavix 7 days prior to cervical SOO and restart 24 hours after [email or web address] Not available 03/12/2023 15:37:36 Reason for Referral None Reported. Results Created Date Observation Date Name Description Value Unit Range Abnormal Flag Note LastModifiedBy Organization Detail LastModifiedTime 02/29/20 23 01/01/2023 MRI, cervi teetee spine , w/o contr ast No observ ation record ed. [facility] [address] [place], [address], 02/28/2023 10:37:34 Result Notes None recorded. Procedures Surgical History Date Name Laterality Status Provider Name and Address Organization Details Recorded Time 05/07/19 05 Thyroid Surgery completed [facility] 02/27/2023 13:05:06 05/07/18 90 Appendectomy [address] [facility] 02/27/2023 13:05:15 Cholecystectomy completed [facility] 02/27/2023 13:05:[address] hyste[address] [facility] 02/27/2023 13:05:41 Imaging Results None recorded. Procedure Notes None recorded. Medical Equipment None Reported. Allergies Allergen ID Allergen Name Allergen Category Reaction Reaction Severity Criticality Documentation Date Start Date Code Code System Note Provider Name and Address Organization Details Recorded Time 846939 Ceclor medicatio n Not available Not available Not available 02/27/202362361 5 RxNorm [facility] 13:03:47 802763 codeine medicatio n Not available Not available Not available 02/27/2023 2670 RxNorm [facility] 13:03:53 Medications Name Sig Start Date Stop [...] Body mass index (BMI) Body weight Systolic And Diastolic Provider Name and Address Organization Details Last Updated DateTime 02/27/2023 170.18 cm 24.6 kg/m2 22335 g 134/80 mm[Hg] Coco Castro [facility] 02/27/2023 13:03:36 Date Recorded Body height Body mass index (BMI) Body weight Body temperature Systolic And Diastolic Provider Name and Address Organization Details Last Updated DateTime 03/12/2023 170.18 cm 25.1 kg/m2 40372.7 8 g 98.6 [degF] 126/80 mm[Hg] Pippa Buckner [facility] 11:37:19 Social History Question Answer Notes LastModified by Organizat ion Details LastModified Time Tobacco Smoking Status Current Every Day Smoker 1/2 PACKS A DAY [facility] 02/27/2023 13:04:52 How Much Tobacco Do [...] SNOMED-CT Code Diagnosis ICD10 Code Diagnosis Note [id number] PAT HUGGINS MD [facility] [address] [place] [address] 02/27/2023 12:40:39 02/28/2023 05:08:36 Cervical spondylosis 610690734 M47.812 [id number] NAY SHAH MD [facility] CLOSED [address] [place] [address] 03/12/2023 10:56:31 03/13/2023 05:07:36 Cervical radiculopathy 08090782 M54.12 Degenerati on of cervical intervertebral disc 34063316 M50.30 Cervical spondylosis 387 795715 M47.812 Health Concerns Section Related Observation LastModified by Organization Detai ls LastModified Time None Recorded Concern Status LastModified by Organization Details LastModified Time None Recorded Advance Directives Directive None Recorded Payers Insurance Date Sequence Insurance Name Policy Number Policy Gallardo Covered Member ID Gallardo Member ID Guarantor Name 03/12/2023 1 [employer] [employer] (MEDICARE REPLACEMENT HMO) [id number] Rox Whitfield [id number] Rox Whitfield Notes Date Note Type [...] that demonstrate more stenosis. PAT HUGGINS MD [address] [place] [address], [address], [facility] 02/27/2023 16:10:03 03/12/2023 text/html Pain Management C-spine [...] Previous Surgerynone Previous Injections:none Previous PT:none Previous health care consultant:none NAY SHAH MD [address] [place] [address], [phone], [facility] 03/12/2023 11:58:34 OBGyn Episode No OBEpisode recorded.
--- OUTSIDE RECORDS SUMMARY | 2024-11-09 18:59 | XMS_ITS | Data Portability ---
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 goal of Glucose, 2 Hour Postprandial < 180 Not available Not available Not available 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 goal of LDL Direct < 70 mg/dL Not available Not available Not available 10/08/2024 [id number] Avoidance of hypoglycemia (any glucose <70) Glucose Test Frequency: QD Fasting [email or web address] Not available 10/08/2024 09:24:58 Patient Instructions Encounter Date Encounter Id Patient Instructions Last Modified By Organization Details Last Modified Time 09/30/2024 [id number] Pre-CallGustavo chandler Pre-call review started at 2024-09-30 11:58 EDT Glucometer Readings: Glucose 7-day fasting average: 107, non-fasting average: 101 Glucose 30-day fasting average: 112, non-fasting average: 118 Review Notes Most recent nurse notes were reviewed. Most recent provider notes were reviewed. 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 [...] minutes. [email or web address] Not available 09/30/2024 12:00:39 10/08/2024 [id number] Ms. Whitfield is a(n ) 74 year [...] the [place]. Does the member have the [employer] denis downloaded? No, member declined Next [place] appointment is confirmed on 10/24/2024 between 02:00 PM and 03:00 PM Eastern Time. Was there a need during this visit to complete a Member Service Request? No. If yes, provide a summary of the request. [email or web address] Not available 10/08/2024 09:28:47 10/24/2024 [id number] [facility] [place]. Pre-CallReview Readings Pre-call review started at 2024-10-24 [...] Confirmation The member is currently located in [place]. The member is willing and able to [...] 14 minutes. [email or web address] Not available 10/24/2024 14:06:56 10/28/2024 [id number] Pre-CallReanne marie chandler Pre-call review started at [...] 6 minutes. [email or web address] Not available 10/28/2024 13:49:58 10/31/2024 [id number] The member is cu [place]rently located in [place]. Pre-CallReview Readings Pre-call review started at 2024-10-31 [...] Confirmation The member is currently located in [place]. The member is willing and able to [...] Details Recorded Time Type 2 diabetes mellitus 50008675 Active 2022 KORTNEY Fay - [facility] 3 10:32:52 Essential hypertension 66864186 Active 2022 ANGELICA FarrarCharan SECRY null, [place] - [facility] 3 10:32:49 Osteoporosis 18361780 Active 2022 Kassandraemely Weston null, [place] - [facility] 3 13:23:41 Osteoarthritis 918604593 Active 2022 Kassandra Weston null, [place] - [facility] 3 13:23:50 Spinal stenosis 45116334 Active 2022 Kassandra Weston null, [place] - [facility] 3 13:24:00 Diabetes mellitus 60053312 Active 2022 ANGELICA DOMINGUEZ SECRY null, [place] - [facility] 3 15:35:53 Anxiety 99653843 Active 2024 Garfield Quinonez NP [address] , [place], [address], [place] [facility] 5 09:13:57 Pulmonary emphysema 79512239 Active 2024 Garfield Quinonez NP [address] , [place], [address], [place] [facility] 5 09:14:23 Coronary arterioscleros is 65922910 Active 2024 Garfield Quinonez NP [address] , [place], [address], [place] [facility] 5 09:16:09 Atrial fibrillation 11489732 Active 2024 Garfield Quinonez NP [address] , [place], [address], [place] [facility] 5 09:16:19 Depressive disorder 66618193 Active 2024 Garfield Quinonez NP [address] , [place], [address], [place] [facility] 5 09:16:44 Hyperlipidemia 75023465 Active 2024 Garfield Quinonez NP [address] , [place], [address], [facility] - [facility] 5 09:17:01 Postoperative hypothyroidism 07448103 Active 2024 Garfield Quinonez NP [address] , [place], [address], [facility] 5 09:17:48 History of cerebrovascula r accident 602424462 Active 2024 Garfield Quinonez NP [address] , [place], [address], [facility] - [facility] 5 09:19:05 Problem Notes None recorded. Procedures Surgical History Date Name Laterality Status Provider Name and Address Organization Details Recorded Time [facility]23 10:13:31 [facility]/13/2023 10:13:58 [facility] 10:14:03 [facility] 03/13/2023 10:14:08 bilateral cataract extraction completed Garfield Quinonez NP [address], [place], [address], [facility] 10/08/2024 09:19:37 Imaging Results None recorded. Procedure Notes None recorded. Medical Equipment None Reported. Allergies Allergen ID Allergen Name Allergen Category Reaction Reaction Severity Criticality Documentation Date Start Date Code Code System Note Provider Name and Address Organization Details Recorded Time Ceclor medicatio n Not available Not available Not available 03/13/202333660 5 RxNorm Burke More null, [place] - [facility] 3 10:13:01 codeine medicatio n Not available Not available Not available 03/13/2023 2670 RxNorm Burke More null, [place] - [facility] 3 10:13:06 Medications Name Sig Start Date [...] Updated DateTime 10/08/2024 160.02 cm 29.6 kg/m2 37268.93 g Garfield Quinonez, ERROL [address], [place], [address], [facility] 10/08/2024 09:12:56 Social History Question Answer Notes LastModified by Organizat ion Details LastModified Time Tobacco Smoking Status Current Some Day Smoker Burke quezada, [facility] 03/13/2023 10:13:25 What Is Your Level Of Caffeine Consumption? Moderate [email or web address] Information not available 03/13/2023 How Much Tobacco Do You Smoke? 0.5 PPD [email or web address] Information not available 10/08/2024 Sex: Unknown Functional Status Question Answer Note LastModified by Organizat ion Details LastModified Time Do you use any illicit or recreational drugs? No [email or web address] Information not available 03/13/2023 Do you or have you ever used any other forms of tobacco or nicotine? No [email or web address] Information not available 03/13/2023 What is your level of alcohol consumption? None [email or web address] Information not available 03/13/2023 Mental Status None [...] SNOMED-CT Code Diagnosis ICD10 Code Diagnosis Note [id number] Char Rosales NP [facility] er Schedule [address] [place] [address] 03/13/2023 10:08:48 03/13/2023 10:44:44 Type 2 diabetes mellitus 98317423 E11.65 Essential hypertension 74177748 I10 253315 ERROL Hernandez_Lyndsey g Schedule [address] [place] [address] 03/22/2023 13:09:28 03/22/2023 13:55:50 Diabetes mellitus 41447653 E11.9 911467 ERROL Hernandez_Lyndsey g Schedule [address] [place] [address] 04/06/2023 16:03:28 04/12/2023 14:07:57 Diabetes mellitus 59453147 E11.9 341174 ERROL Hernandez_Nursin g Schedule [address] [place] [address] 06/04/2023 17:19:49 06/04/2023 17:37:56 Type 2 diabetes mellitus 88293353 E11.65 719448 ERROL HOWE_Nursin g Schedule [address] [place] [address] 06/18/2023 15:36:21 06/18/2023 15:53:52 Type 2 diabetes mellitus 57273407 E11.65 118208 ROCHELLE PINO NP [facility]Prov[facility] er Schedule [address] [place] [address] 06/26/2023 14:25:55 06/26/2023 14:49:00 Type 2 diabetes mellitus 25774774 E11.65 -Continue the following medication s as [...] vegetables /fruits, and high-fiber carbohydra te sources. 683916 ERROL HOWE_Nursin g Schedule [address] [place] [address] 07/16/2023 15:29:20 07/16/2023 15:47:24 Diabetes mellitus 05955001 E11.9 142416 ERROL HOWE_Nursin g Schedule [address] [place] [address] 07/30/2023 15:35:00 07/30/2023 15:43:26 Diabetes mellitus 53998376 E11.9 533255 ERROL HOWE_Nursin g Schedule [address] [place] [address] 08/14/2023 13:17:28 08/14/2023 13:25:01 103372 ROCHELLE PINO NP NS_Nursin g Schedule [address] [place] [address] 08/31/2023 13:59:10 08/31/2023 14:16:34 753451 ROCHELLE PINO NP [facility]Nursin g Schedule [address] [place] [address] 10/12/2023 13:52:07 10/12/2023 14:06:29 201515 ROCHELLE PINO NP [facility]Nursin g Schedule [address] [place] [address] 10/26/2023 13:34:59 10/26/2023 13:49:01 Diabetes mellitus 37929114 E11.9 112941 Garfield Quinonez NP [facility]Nursin g Schedule [address] [place] [address] 11/09/2023 15:07:52 11/09/2023 15:21:23 Type 2 diabetes mellitus 31561439 E11.65 081332 Garfield Quinonez NP [facility]Nursin g Schedule [address] [place] [address] 11/23/2023 14:00:07 11/23/2023 14:04:24 Type 2 diabetes mellitus 86195936 E11.65 632697 Garfield Quinonez NP [facility]Nursin g Schedule [address] [place] [address] 12/21/2023 11:30:27 12/21/2023 11:36:39 Type 2 diabetes mellitus 54460545 E11.65 640975 LOGAN COOPER NP [facility]Nursin g Schedule [address] [place] [address] 02/15/2024 14:21:26 02/15/2024 14:29:13 Diabetes mellitus 27799200 E11.9 145408 Garfield Quinonez NP NS[facility]Nursin g Schedule [address] [place] [address] 02/29/2024 14:14:51 02/29/2024 14:24:57 Essential hypertension 24892524 I10 704752 Garfield Quinonez NP NS[facility]Nursin g Schedule [address] [place] [address] 03/14/2024 14:21:25 03/14/2024 14:35:03 Diabetes mellitus 37611249 E11.9 099838 Garfield Quinonez NP NS[facility]Nursin g Schedule [address] [place] [address] 03/28/2024 14:35:21 03/28/2024 14:51:24 Diabetes mellitus 06458904 E11.9 Diabetes mellitus Type 2 serafin betes mellitus 96948455 E11.65 Type 2 diabetes mellitus Essential hypertension 56537007 I10 Essential hypertensi on 270490 Garfield Quinonez NP NS[facility]Nursin g Schedule [address] [place] [address] 04/11/2024 14:25:02 04/11/2024 14:30:26 Type 2 diabetes mellitus 38421457 E11.65 Type 2 diabetes mellitus 256972 Garfield Quinonez NP NS_Nursin g Schedule [address] [place] [address] 04/15/2024 15:09:24 04/15/2024 15:13:52 Diabetes mellitus 20401754 E11.9 Diabetes mellitus Type 2 serafin betes mellitus 79707899 E11.65 Type 2 diabetes mellitus Essential hypertension 62771880 I10 Essential hypertensi on 692231 Garfield Quinonez NP NS_Nursin g Schedule [address] [place] [address] 04/25/2024 14:18:17 04/25/2024 14:33:54 Type 2 diabetes mellitus 05143153 E11.65 Type 2 diabetes mellitus 114616 Garfield Quinonez NP NS_Nursin g Schedule [address] [place] [address] 05/09/2024 14:50:04 05/09/2024 15:06:31 Diabetes mellitus 07675952 E11.9 Diabetes mellitus 178034 Garfield Quinonez NP NS[facility]Nursin g Schedule [address] [place] [address] 05/23/2024 14:11:17 05/23/2024 14:19:40 Type 2 diabetes mellitus 89843857 E11.65 Type 2 diabetes mellitus 959479 Garfield Quinonez NP NS[facility]Nursin g Schedule [address] [place] [address] 06/06/2024 14:30:40 06/06/2024 14:55:25 Diabetes mellitus 68879525 E11.9 Diabetes mellitus Type 2 serafin betes mellitus 37328261 E11.65 Type 2 diabetes mellitus Essential hypertension 80810880 I10 Essential hypertensi on 048548 Garfield Quinonez NP NS[facility]Nursin g Schedule [address] [place] [address] 06/20/2024 14:32:39 06/20/2024 14:47:15 Type 2 diabetes mellitus 21523007 E11.65 Type 2 diabetes mellitus 193245 Garfield Quinonez NP [facility]Nursin g Schedule [address] [place] [address] 07/04/2024 14:16:09 07/04/2024 14:33:03 Type 2 diabetes mellitus 23976285 E11.65 Type 2 diabetes mellitus 663027 Garfield Quinonez NP NS_Nursin g Schedule [address] [place] [address] 07/18/2024 14:05:13 07/18/2024 14:10:56 Type 2 diabetes mellitus 77438167 E11.65 Type 2 diabetes mellitus 431350 Garfield Quinonez NP NS_Nursin g Schedule [address] [place] [address] 08/01/2024 14:35:03 08/01/2024 14:39:26 Type 2 diabetes mellitus 81065123 E11.65 Type 2 diabetes mellitus 959261 Garfield Quinonez NP NS_Nursin g Schedule [address] [place] [address] 08/15/2024 14:26:22 08/15/2024 14:42:23 Type 2 diabetes mellitus 03113509 E11.65 Type 2 diabetes mellitus 336685 Garfield Quinonez NP NS_Nursin g Schedule [address] [place] [address] 08/29/2024 14:34:14 08/29/2024 14:52:41 Diabetes mellitus 20466926 E11.9 Diabetes mellitus 292655 Garfield Quinonez NP NS[facility]Nursin g Schedule [address] [place] [address] 08/29/2024 16:25:25 08/29/2024 16:44:57 Diabetes mellitus 54792941 E11.9 Diabetes mellitus Type 2 serafin betes mellitus 24614360 E11.65 Type 2 diabetes mellitus Essential hypertension 02910917 I10 Essential hypertensi on 596262 Garfield Quinonez NP NS[facility]Nursin g Schedule [address] [place] [address] 09/01/2024 15:45:13 09/01/2024 15:50:55 Diabetes mellitus 31201777 E11.9 Diabetes mellitus 570341 Garfield Quinonez NP NS[facility]Nursin g Schedule [address] [place] [address] 09/12/2024 14:30:22 09/12/2024 14:48:17 Type 2 diabetes mellitus 80393544 E11.65 Type 2 diabetes mellitus 769696 Garfield Quinonez NP [facility]Nursin g Schedule [address] [place] [address] 09/26/2024 14:24:11 09/26/2024 14:42:18 Type 2 diabetes mellitus 43894831 E11.65 Type 2 diabetes mellitus 331966 Garfield Quinonez NP NS_Nursin g Schedule [address] [place] [address] 09/30/2024 11:58:12 09/30/2024 12:00:40 Type 2 diabetes mellitus 97380941 E11.65 Type 2 diabetes mellitus 740393 Garfield Quinonez NP PS_Provid er Schedule [address] [place] [address] 10/08/2024 09:10:56 10/08/2024 09:29:13 Type 2 diabetes mellitus 74483674 E11.65 Diabetes Ongoing Care Plan -Continue RPM [...] intake and water's role in decreasing glucose. 880781 ERROL Wells_Nursin g Schedule [address] [place] [address] 10/24/2024 13:53:25 10/24/2024 14:06:56 Type 2 diabetes mellitus 72507718 E11.65 Type 2 diabetes mellitus 455711 ERROL Wells_Nursin g Schedule [address] [place] [address] 10/28/2024 13:48:53 10/28/2024 13:49:59 Diabetes mellitus 45656787 E11.9 Diabetes mellitus Type 2 serafin betes mellitus 50967373 E11.65 Type 2 diabetes mellitus Essential hypertension 91186476 I10 Essential hypertensi on 911288 ERROL Wells_Nursin g Schedule [address] [place] [address] 10/31/2024 13:00:16 10/31/2024 13:20:54 Diabetes mellitus 31885672 E11.9 Diabetes mellitus Type 2 serafin betes mellitus 67234469 E11.65 Type 2 diabetes mellitus Essential hypertension 37519170 I10 Essential hypertensi on Goals Section Goal Description Progress Status Start Date LastModified by Organization Details LastModified Time Diabetes Diet Maintain a diabetes diet as recommended by your care team Cassie active 024 Valerie Rizo Information not available 06/04/2023 22:35:30 Blood Glucose Maintains fsting blood glucose within target range of less than 150 achieved active Mavis Matute Information not available 02/29/2024 18:24:27 Health Concerns Section Related Observation LastModified by Organization Detkrissy ls LastModified Time None Recorded Concern Status LastModified by Organization Details LastModified Time None Recorded Advance Directives Directive None Recorded Payers Insurance Date Sequence Insurance Name Policy Number Policy Gallardo Covered Member ID Gallardo Member ID Guarantor Name 11/06/2024 1 [employer] (MEDICARE REPLACEMENT/ADVA NTAGE - PPO) Rox Whitfield [id number] Rox Whitfield 03/14/2024 1 [facility] (MEDICARE REPLACEMENT/ADVA NTAGE - HMO) [id number] Rox Whitfield [id number] Rox Whitfield Notes Date Note Type [...] is located in at time of call: [place] - Patient Location at time of visit: Home If location today is outside the state in [place] home address, has patient moved?N/AIf patient has moved, was address updated in [facility]?N/A Recent illnesses or hospitalizations: . Diet:Low [...] Quinonez, ERROL [address], [place], [address], [facility] - [facility] 10/08/2024 09:28:49 OBGyn Episode No OBEpisode recorded.
--- OUTSIDE RECORDS SUMMARY | 2024-11-09 18:59 | XMS_ITS | Patient Health Record ---
Author Organization [facility] Address [address] [place] [address] Support Name Relationship Address Phone MAY CROUCH Guarantor Unknown [phone] Reason For Referral No Information Plan Of Treatment No Information Insurance Providers Payer Name Payer Address Payer Phone Subscriber Number Group Number Insured Name Patient Relationship to Insured Coverage Start Date Coverage End Date [employer] [address] [address] [place] [address] [id number] MAY CROUCH Self - patient is the insured
[2024-11-09 19:00] VITALS: BP 121/73; PULSE 62; RESP 18; O2SAT 95
--- NOTE | 2024-11-09 19:02 | CT_ITS ---
PROCEDURE INFORMATION: Exam: CT Abdomen And Pelvis With Contrast Exam date and time: 11/09/2024 7:56 PM Age: 74 years old Clinical indication: Abdominal pain; Additional info: Left sided abdominal pain TECHNIQUE: Imaging protocol: Computed tomography of the abdomen and pelvis with contrast. Radiation optimization: All CT scans at this facility use at least one of these dose optimization techniques: automated exposure control; mA and/or kV adjustment per patient size (includes targeted exams where dose is matched to clinical indication); or iterative reconstruction. Contrast material: ISOVUE; Contrast volume: 75 ml; Contrast route: IV; COMPARISON: CT ABDOMEN PELVIS W CON 10/19/2024 3:44 PM FINDINGS: Tubes, catheters and devices: None noted. Lungs: Lung bases appear clear. Heart: Dense proximal severe coronary calcifications. No cardiomegaly. No significant pericardial effusion. Liver: Normal. No mass. Gallbladder and biliary ducts: Cholecystectomy. No ductal dilation. Pancreas: Normal. No ductal dilation. Spleen: Normal. No splenomegaly. Adrenal glands: Normal. No mass. Kidneys and ureters: Normal. No hydronephrosis. Stomach and bowel: Extensive stool throughout the colon. No obstruction. No mucosal thickening. Appendix: No evidence of appendicitis. Intraperitoneal space: Unremarkable. No free air. No significant fluid collection. Retroperitoneal space: No significant retroperitoneal inflammatory changes are noted. Vasculature: Unremarkable. No abdominal aortic aneurysm. Lymph nodes: Unremarkable. No enlarged lymph nodes. Urinary bladder: Unremarkable as visualized. Reproductive: Hysterectomy. Bones/joints: Vacuum disc L4-L5 and L5-S1. No acute fracture. Soft tissues: Unremarkable. IMPRESSION: 1. Extensive stool throughout the colon. 2. Cholecystectomy. 3. Hysterectomy. 4. Dense coronary calcifications. Consider cardiology consultation.
--- NOTE | 2024-11-09 19:02 | ECG_ITS ---
APPROVED REPORT Exam: Resting ECG HR:58 bpm ECG Measurements Heart Rate 58 AXES MT 151 P 22 QRSd 94 QRS 17 QT 469 T 14 QTc 465 Conclusion SINUS BRADYCARDIA BORDERLINE ECG Electronically signed by : MONA DIAMOND, 11/11/2024 08:40:17
[2024-11-09 19:11] LABS: Hematocrit 29.7 % (37.0-47.0); Hemoglobin 9.7 g/dL (12.2-16.2); Immature Granulocytes % 0.5 %; Mean Corpuscular HGB Conc 32.7 g/dL (31.8-35.4); Mean Corpuscular Hemoglobin 30.9 pg (27.0-31.2); Mean Corpuscular Volume 94.6 fl (81-99); Nucleated Red Blood Cells % 0 %; Platelet Count 169 K/mm3 (142-424); Red Blood Count 3.14 M/mm3 (4.20-5.40); Red Cell Distribution Width-SD 47.7 fL; White Blood Count 5.5 K/mm3 (4.8-10.8)
[2024-11-09] MEDS: ONDANSETRON 4MG/2ML VIAL 4 MG IV (19:13)
[2024-11-09] MEDS: FAMOTIDINE 20MG/2ML VIAL 20 MG IV (19:13)
[2024-11-09 19:15] VITALS: BP 117/63; PULSE 60; RESP 24; O2SAT 94
[2024-11-09 19:17] LABS: Alanine Aminotransferase 24 U/L (12-78); Albumin Level 4.0 g/dl (3.5-5.0); Albumin/Globulin Ratio 1.3 (1.1-1.8); Alkaline Phosphatase 62 U/L (38-126); Anion Gap 12.7 mEq/L (5-15); Aspartate Amino Transferase 45 U/L (14-36); Bilirubin,Total 0.3 mg/dl (0.2-1.3); Blood Urea Nitrogen 12 mg/dl (7-17); Calcium 8.9 mg/dl (8.4-10.2); Carbon Dioxide 30 mmol/L (22.0-30.0); Chloride 99 mmol/L (98-107); Creatinine Clearance Estimated 55 mL/min (50-200); Creatinine,Serum 0.80 mg/dl (0.52-1.04); Estimated Glomerular Filt Rate 70 ml/min (>60); GFR (African American) 84 ML/MIN (>60); Globulin 3.0 g/dL (1.3-3.2); Glucose 135 mg/dl (74-100); Lipase 18 U/L (23-300); Magnesium 1.7 mg/dl (1.6-2.3); Potassium 3.7 mmoL/L (3.5-5.1); Sodium 138 mmol/L (136-145); Total Protein,Serum 7.0 g/dl (6.3-8.2)
--- NOTE | 2024-11-09 19:24 | ED_ITS ---
Discharge Plan Disposition Patient Disposition: Home, Self-Care Prescriptions Prescriptions: New Relistor 150 mg tablet 450 mg PO Q24H Qty: 90 0RF No Action omega-3 acid ethyl esters 1 gram capsule 1 cap PO BID 90 Days Qty: 180 3RF sucralfate [Carafate] 1 gram tablet 1 g PO QACHS PRN alprazolam [Xanax] 0.5 mg tablet 0.5 mg PO TID Qty: 90 2RF duloxetine [Cymbalta] 30 mg capsule,delayed release(DR/EC) 30 mg PO DAILY Qty: 30 2RF levothyroxine [Synthroid] 50 mcg tablet 50 mcg PO DAILY Qty: 90 3RF magnesium oxide 400 mg magnesium capsule 400 mg PO DAILY ciprofloxacin HCl 750 mg tablet 750 mg PO BID Qty: 14 0RF metronidazole 500 mg tablet 500 mg PO QID Qty: 28 0RF clopidogrel 75 mg tablet 75 mg PO DAILY Qty: 90 0RF metformin 500 mg tablet 500 mg PO BID Qty: 60 3RF oxycodone 10 mg tablet 10 mg PO QID PRN (Reason: pain) Qty: 120 0RF promethazine 12.5 mg tablet 12.5 mg PO TID PRN (Reason: allergy symptoms) Qty: 14 0RF Rx Instructions: 3 doses during day; last dose no later than 4 hr before bedtime Linzess 290 mcg capsule 290 mcg PO DAILY Patient Comments: TAKE 1 CAPSULE BY MOUTH EVERY DAY 30 MINUTES BEFORE FIRST MEAL OF THE DAY ON AN EMPTY STOMACH Referrals Follow up/Referrals: Darrell Lane MD [Primary Care Provider, Family Practice] - See instructions Activity Restrictions/Add. Instructions Additional Instructions/Restrictions: Increase fluids and rest. Take medications as directed. Please follow-up with PCP for further problems and concerns. Clinical Impressions Clinical Impression: Abdominal pain, Constipation Instructions Patient Instructions: Constipation, DI for Acute Abdominal Pain Print Language Print Language: Bruneian Discharge ED Provider: Derrick Garza Adult HPI <Diana Handy (ED), [employer] - Last Filed: 11/10/24 20:14> General Chief complaint: Abdominal Pain Stated complaint: abd pain Time Seen by Provider: 11/09/24 19:01 Mode of Arrival: EMS Source of Information: Patient and EMS Description of Symptoms (Recalled from ER Triage Doc. by RN): Pt brought to Ed via EMS for evaluation of lower abd pain. Pt stated it started at 1900 last night 11/08/2024. Stated she had had one bowel movement. Pt stated she has a hx of bladder pain and pain on urination and sees a urologist, wasnt able to stated what exactly it was but pain wasnt new. PT sated she takes 4 oxycodone a day, stated she took one at 0800. History of Present Illness HPI narrative: 74-year-old female presents to the ED via EMS for left-sided and lower abdominal pain. She says it started at 7:00 last night. She says she has been giving herself enemas and she passed some stool. She does take oxycodone at home for a day. She tells me that she woke up at 8 AM and was in a lot of pain and took more pain medication. She had a lot of nausea but did not throw up. So she took some Phenergan and went back to sleep until 4 PM. She woke up with more pain so she called EMS. She does tell me at she has had a bladder infection for a year and has been to a urologist and they cannot figure out what the cause is. She has another appointment with her urologist on February 19. She tells me that she has had chills and burning with urination with the pelvic pain. She urinates frequently. She also tells me that she saw Darren with Dr. Kebede's office and is being scheduled for colonoscopy. Related Data Home Medications ?Medication ?Instructions ?Recorded ?Confirmed linaclotide 290 mcg capsule 290 mcg PO DAILY 10/01/23 10/31/24 (Linzess) sucralfate 1 gram tablet (Carafate) 1 g PO QACHS PRN 0 09/18/24 10/31/24 magnesium oxide 400 mg PO DAILY 10/02/24 Previous Rx's ?Medication ?Instructions ?Recorded omega-3 acid ethyl esters 1 gram 1 cap PO BID 90 days #180 caps 06/05/24 capsule Synthroid 50 mcg tablet 50 mcg PO DAILY thyroid dise ase 07/31/24 (levothyroxine) #90 tabs clopidogrel 75 mg tablet 75 mg PO DAILY Blood thinner #90 08/13/24 tabs metformin 500 mg tablet 500 mg PO BID #60 tabs 09/16 alprazolam 0.5 mg tablet (Xanax) 0.5 mg PO TID #90 tab s 09/18/24 duloxetine 30 mg capsule,delayed 30 mg PO DAILY #30 ca ps 10/16/24 release (Cymbalta) promethazine 12.5 mg tablet 12.5 mg PO TID PRN allergy 10/19/24 symptoms #14 tabs oxycodone 10 mg tablet 10 mg PO QID PRN pain #120 t abs 10/29/24 ciprofloxacin HCl 750 mg tablet 750 mg PO BID #14 tabs 10/31/24 metronidazole 500 mg tablet 500 mg PO QID #28 tabs methylnaltrexone 150 mg tablet 450 mg (3 x 150 mg) PO Q24H #90 11/09/24 (Relistor) tabs Allergies Allergy/AdvReac Type Severity Reaction Status Date / Time cefaclor ([facility]) Allergy Mild Verified 10/14/24 11:22 codeine Allergy Mild Verified 10/14/24 11:22 Sulfa (Sulfonamide Allergy Mild Verified 10/14/24 11:22 Antibiotics) [facility] <Diana Handy (ED), [employer]ER - Last Filed: 11/10/24 20:14> [facility] Disclaimer: The information contained in this section may have been updated after the patient was seen, as this information can be updated by other users. Medical History (Updated 11/09/24 @ 22:04 by Diana Handy (ED), [employer]) Tobacco use Breast cancer screening by mammogram Encounter for pre-operative cardiovascular clearance Abnormal electrocardiogram [ECG] [EKG] Hyperlipidemia Hypothyroidism Diabetes CAD (coronary artery disease) Anxiety COPD (chronic obstructive pulmonary disease) Panic disorder Surgical History Hx of appendectomy History of hysterectomy History of cholecystectomy History of thyroidectomy Family History Other No significant family history Social History Smoking Status: Current every day smoker quit status: considering quitting alcohol intake: never current occupational status: retired Travel in the last 8 weeks?: None Have you lived/traveled outside US in past 30 days?: No Contact w/someone who lives/traveled outside US past 30 days?: No Exposure to someone with infectious disease in past 14 days?: No Do you have a fever (greater than 100.4 F or 38 C)?: No Have you tested positive for COVID-19?: No Exposed to someone with COVID-19 in past 14 days?: No Do you have a sore throat?: No Do you have a cough?: No Do you have any weakness?: No Do you have any diarrhea?: No Are you experiencing any unusual bleeding?: No Do you have any muscle aches/pain?: No Do you have any abdominal pain?: Yes Are you experiencing loss of taste or smell?: No Other Medical History Have you received the Flu Vaccine for this season: Yes Have you received the Pneumonia Vaccine: Yes <Diana Handy (ED), [employer] - Last Filed: 11/10/24 20:14> ROS Obtained: Yes Systems reviewed as appropriate & no additional complaints except as documented Constitutional Constitutional: Reports as per HPI Physical Exam <Diana Handy (ED), [employer]ER - Last Filed: 11/10/24 20:14> General General appearance: alert and appears intoxicated Head Head exam: normocephalic Eye Eye exam: Present PERRL and EOMI ENT ENT exam: Present normal oropharynx and mucous membranes moist Neck Neck exam: Present full ROM and trachea midline Respiratory Respiratory exam: Present normal lung sounds bilaterally Cardiovascular Cardiovascular exam: Present regular rate, normal rhythm, normal heart sounds, +S1 and +S2 Abdominal Exam Abdominal exam: Present soft and normal bowel sounds Abdominal tenderness: Present diffuse Extremities Exam Extremities exam: Present normal inspection, full ROM and normal capillary refill Neurological Exam Neurological exam: Present alert, oriented X3 and normal gait Skin Skin exam: Present warm, dry and intact Medical Decision Making <Diana Handy (ED), [employer] - Last Filed: 11/10/24 20:14> Medical Records Screening: Per USPSTF and CDC recommendations, given the prevalence of disease in our region, it is our hospital?s policy to screen for HIV and viral Hepatitis for all patients aged 18 and over and those with ongoing risk factors. Marvin Inquiry Pt receiving controlled substance: No Marvin was queried for this patient: No Vital Signs: 11/09/24 18:56 11/09/24 19:00 11/09/24 19:15 Temperature 98.7 F Temperature Source Oral Pulse Rate 62 60 Respiratory Rate 18 18 24 Blood Pressure 121/73 117/63 Blood Pressure [Right Arm] 152/89 H Blood Pressure Mean 96 Blood Pressure Mean [Right Arm] 110 Blood Pressure Source Blood Pressure Position 02 Sat by Pulse Oximetry 96 95 94 L Oxygen Delivery Method Room Air 11/09/24 19:30 11/09/24 19:45 11/09/24 22:12 Temperature 98.3 F Temperature Source Oral Pulse Rate 60 60 61 Respiratory Rate 18 14 18 Blood Pressure 120/72 120/71 139/76 Blood Pressure [Right Arm] Blood Pressure Mean 93 92 Blood Pressure Mean [Right Arm] Blood Pressure Source Automatic Cuff Blood Pressure Position Sitting 02 Sat by Pulse Oximetry 93 L 94 L Oxygen Delivery Method Room Air Lab Data Lab Results 11/09/24 18:50: WBC 5.5, RBC 3.14 L, Hgb 9.7 L, Hct 29.7 L, MCV 94.6, MCH 30.9, MCHC 32.7, RDW 13.9, Plt Count 169, MPV 9.7, Neut % (Auto) 67.7, Lymph % (Auto) 21.9, [place] % (Auto) 6.6, Eos % (Auto) 2.6, Baso % (Auto) 0.7, Neut # (Auto) 3.7, Lymph # (Auto) 1.2, [place] # (Auto) 0.4, Eos # (Auto) 0.1, Baso # (Auto) 0.0, Sodium 138, Potassium 3.7, Chloride 99, Carbon Dioxide 30, Anion Gap 12.7, BUN 12, Creatinine 0.80, Estimated Creat Clear 55, Estimated GFR 70, Est GFR ( Amer) 84, Glucose 135 H, Calcium 8.9, Magnesium 1.7, Total Bilirubin 0.3, AST 45 H, ALT 24, Alkaline Phosphatase 62, Troponin I < 0.01, Total Protein 7.0, Albumin 4.0, Globulin 3.0, Albumin/Globulin Ratio 1.3, Lipase 18 L 11/09/24 21:52: Troponin I < 0.01 11/09/24 18:50 11/09/24 18:50 Orders (Tests/Meds): ED MEDICATIONS Discontinued Medications Generic Name Dose Route Start Last Admin Trade Name Freq PRN Reason Stop Dose Admin Famotidine 20 mg 11/09/24 19:01 11/09/24 19:13 Famotidine 20mg/2ml Vial IV 11/09/24 19:02 20 mg ONCE ONE Administration Iopamidol 75 ml 11/09/24 19:58 11/09/24 19:59 Iopamidol-370 (76%);100ml Bottle IV 11/09/24 19:59 75 ml ONCE ONE Administration Ketorolac Tromethamine 30 mg 11/09/24 19:01 11/09/24 19:23 Ketorolac 30mg/Ml Vial IV 11/09/24 19:02 Not Given ONCE ONE Ondansetron HCl 4 mg 11/09/24 19:01 11/09/24 19:13 Ondansetron 4mg/2ml Vial IV 11/09/24 19:02 4 mg ONCE ONE Administration Sodium Chloride 8 ml 11/09/24 19:01 Sodium Chloride 0.9% 10ml Vial IV 12/09/24 19:00 NEEDED PRN dilute pepcid Sodium Chloride 10 ml 11/09/24 19:58 11/09/24 19:59 Sodium Chloride 0.9% 10ml Syr (Rad Only) IV 12/09/24 19:57 10 ml NEEDED PRN Administration Maintain IV Site ORDERS Category Date Time Status CT abdomen pelvis w con Stat Cat Scan 11/09/24 19:02 Completed CBC [Complete Blood Count Auto Diff] Stat Lab 11/09/24 18:50 Completed Comprehensive Metabolic Panel Stat Lab 11/09/24 18:50 Completed Lipase Stat Lab 11/09/24 18:50 Completed Magnesium Stat Lab 11/09/24 18:50 Completed Trop I [Troponin I] Stat Lab 11/09/24 18:50 Completed Troponin I Q3H Lab 11/09/24 21:52 Completed Medical Decision Narrative: patient is a 74-year-old female presenting to the emergency department for evaluation of lower abdominal pain. Patient is hemodynamically stable and nontoxic-appearing upon arrival, afebrile. Differential diagnosis includes bowel obstruction, constipation, diverticulitis, UTI, among others. Workup will be conducted with hematologic labs, specific imaging, provocative tests. Initial inventions include crystalloid bolus, analgesics, antibiotics. Initial workup reviewed by me hematologic labs are remarkable for normal troponins, normal liver and kidney function. Patient does have a chronic UTI. Imaging informally interpreted by me and remarkable for constipation. Please see formal imaging report for the radiology read. Patient has improved the symptoms. We discussed constipation treatment and using [facility] at home and following up with PCP. Patient safe for discharge home. <Derrick Garza MD - Last Filed: 11/10/24 20:32> Vital Signs: 11/09/24 18:56 11/09/24 19:00 11/09/24 19:15 Temperature 98.7 F Temperature Source Oral Pulse Rate 62 60 Respiratory Rate 18 18 24 Blood Pressure 121/73 117/63 Blood Pressure [Right Arm] 152/89 H Blood Pressure Mean 96 Blood Pressure Mean [Right Arm] 110 Blood Pressure Source Blood Pressure Position 02 Sat by Pulse Oximetry 96 95 94 L Oxygen Delivery Method Room Air 11/09/24 19:30 11/09/24 19:45 11/09/24 22:12 Temperature 98.3 F Temperature Source Oral Pulse Rate 60 60 61 Respiratory Rate 18 14 18 Blood Pressure 120/72 120/71 139/76 Blood Pressure [Right Arm] Blood Pressure Mean 93 92 Blood Pressure Mean [Right Arm] Blood Pressure Source Automatic Cuff Blood Pressure Position Sitting 02 Sat by Pulse Oximetry 93 L 94 L Oxygen Delivery Method Room Air Lab Data Lab Results 11/09/24 18:50: WBC 5.5, RBC 3.14 L, Hgb 9.7 L, Hct 29.7 L, MCV 94.6, MCH 30.9, MCHC 32.7, RDW 13.9, Plt Count 169, MPV 9.7, Neut % (Auto) 67.7, Lymph % (Auto) 21.9, [place] % (Auto) 6.6, Eos % (Auto) 2.6, Baso % (Auto) 0.7, Neut # (Auto) 3.7, Lymph # (Auto) 1.2, [place] # (Auto) 0.4, Eos # (Auto) 0.1, Baso # (Auto) 0.0, Sodium 138, Potassium 3.7, Chloride 99, Carbon Dioxide 30, Anion Gap 12.7, BUN 12, Creatinine 0.80, Estimated Creat Clear 55, Estimated GFR 70, Est GFR ( Amer) 84, Glucose 135 H, Calcium 8.9, Magnesium 1.7, Total Bilirubin 0.3, AST 45 H, ALT 24, Alkaline Phosphatase 62, Troponin I < 0.01, Total Protein 7.0, Albumin 4.0, Globulin 3.0, Albumin/Globulin Ratio 1.3, Lipase 18 L 11/09/24 21:52: Troponin I < 0.01 Orders (Tests/Meds): ED MEDICATIONS Discontinued Medications Generic Name Dose Route Start Last Admin Trade Name Freq PRN Reason Stop Dose Admin Famotidine 20 mg 11/09/24 19:01 11/09/24 19:13 Famotidine 20mg/2ml Vial IV 11/09/24 19:02 20 mg ONCE ONE Administration Iopamidol 75 ml 11/09/24 19:58 11/09/24 19:59 Iopamidol-370 (76%);100ml Bottle IV 11/09/24 19:59 75 ml ONCE ONE Administration Ketorolac Tromethamine 30 mg 11/09/24 19:01 11/09/24 19:23 Ketorolac 30mg/Ml Vial IV 11/09/24 19:02 Not Given ONCE ONE Ondansetron HCl 4 mg 11/09/24 19:01 11/09/24 19:13 Ondansetron 4mg/2ml Vial IV 11/09/24 19:02 4 mg ONCE ONE Administration Sodium Chloride 8 ml 11/09/24 19:01 Sodium Chloride 0.9% 10ml Vial IV 12/09/24 19:00 NEEDED PRN dilute pepcid Sodium Chloride 10 ml 11/09/24 19:58 11/09/24 19:59 Sodium Chloride 0.9% 10ml Syr (Rad Only) IV 12/09/24 19:57 10 ml NEEDED PRN Administration Maintain IV Site ORDERS Category Date Time Status CT abdomen pelvis w con Stat Cat Scan 11/09/24 19:02 Completed CBC [Complete Blood Count Auto Diff] Stat Lab 11/09/24 18:50 Completed Comprehensive Metabolic Panel Stat Lab 11/09/24 18:50 Completed Lipase Stat Lab 11/09/24 18:50 Completed Magnesium Stat Lab 11/09/24 18:50 Completed Trop I [Troponin I] Stat Lab 11/09/24 18:50 Completed Troponin I Q3H Lab 11/09/24 21:52 Completed Medical Decision Narrative: patient is a 74-year-old female presenting to the emergency department for evaluation of lower abdominal pain. Patient is hemodynamically stable and nontoxic-appearing upon arrival, afebrile. Differential diagnosis includes bowel obstruction, constipation, diverticulitis, UTI, among others. Workup will be conducted with hematologic labs, specific imaging, provocative tests. Initial inventions include crystalloid bolus, analgesics, antibiotics. Initial workup reviewed by me hematologic labs are remarkable for normal troponins, normal liver and kidney function. Patient does have a chronic UTI. Imaging informally interpreted by me and remarkable for constipation. Please see formal imaging report for the radiology read. Patient has improved the symptoms. We discussed constipation treatment and using [employer] at home and following up with PCP. Patient safe for discharge home. I was consulted by the JOVITA, and we discussed the complexity of the problems being addressed. I approve the treatment and management plan for this patient's care in the emergency department, thus performing a substantive portion of the medical decision making. Derrick Garza MD Critical Care <Diana Handy (ED), [employer]ER - Last Filed: 11/10/24 20:14> Critical Care Time Critical Care Time: No
[2024-11-09 19:30] VITALS: BP 120/72; PULSE 60; RESP 18; O2SAT 93
[2024-11-09 19:30] LABS: Troponin I < 0.01 ng/ml (0.00-0.034)
[2024-11-09 19:45] VITALS: BP 120/71; PULSE 60; RESP 14; O2SAT 94
[2024-11-09] MEDS: IOPAMIDOL-370 (76%);100ML BOTTLE 75 ML IV (19:59)
[2024-11-09] MEDS: SODIUM CHLORIDE 0.9% 10ML SYR (RAD ONLY) 10 ML IV (19:59)
--- NOTE | 2024-11-09 21:31 | PC.NURSE ---
This nurse followed up with [facility], PT stated she just went to restroom, this nurse did not take PT to restroom. PT stated she does not have to use the restroom at this time.
[2024-11-09 22:12] VITALS: BP 139/76; PULSE 61; RESP 18; TEMP 36.8; O2SAT 99
[2024-11-09 22:57] LABS: Troponin I < 0.01 ng/ml (0.00-0.034)
== END 2024-11-09 22:20 | disposition home or self-care (01) ==
PROVIDERS: Nurse Practitioner; Emergency Provider Student in an Organized Health Care Education/Training Program; PCP Family Medicine
DX: R10.30 Lower abdominal pain, unspecified (principal); K59.00 Constipation, unspecified; Z72.0 Tobacco use; K21.9 Gastro-esophageal reflux disease without esophagitis; F41.1 Generalized anxiety disorder; E78.5 Hyperlipidemia, unspecified
CPT/HCPCS: 74177; 80053; 83690; 83735; 84484; 85025; 93005; 96374; 96375; 99285; J1885; J2405; Q9967

== ENCOUNTER 2024-11-14 12:51 | Outpatient (CLI) | payer MEDICARE, SELFPAY ==
--- OUTSIDE RECORDS SUMMARY | 2015-12-13 10:52 | XMS_ITS | Continuity of Care Document ---
Author Organization [facility] Address [address] [place] [phone] Phone Care Team Providers Care Mixer Operator Name Role Phone Natty CASTILLO, Gentry [...] as directed. - Active 09/15/15 & 09/29/15 [id number] RxID: [id number] Durezol 0.05 % eye drops Use BID as directed. May sub Lotemax Gel 0.5%, 5 ml. Use QID as directed. May sub Prednisolone Acetate 1%, 10 ml. Use QID as directed. - Active 09/15/15 & 09/29/15 [id number] Ocuflox 0.3 % eye drops Use QID as directed. - Active 6 & 09/29/15 [id number] gabapentin 600 mg tablet take 1 tablet [...] [place], LASER POSTOP [facility] w/pt or re TOBACCO NON-USER OPHTHALMIC BIOMETRY Advance Directives Directive Yes / No Effective Date File Name No Information Encounters Encounter Description Practice Location Reason(s) For Visit Diagnoses Date Provider Providers Copied on Encounter [facility], [address] [place] [address], [address] [place] [address], [phone] [facility] [place] No Information 6 Natty Rinaldi. [address] [place] [address], [address] [place] [address] , . tel:[phone] [facility], [address] [place] [address], [id number], [phone] [facility] No Information 6 Natty Rinaldi. [address] [place] [address], [id number] , . tel:[phone] Referring Provider: Mohsen Maria, [address] [place] [address], [address] . tel:[phone] [facility], [address] [place] [address], [id number], tel:[phone] [facility] [place] Cataract eval (chief complaint) Combined Cat OD 6 Giovani Finn. [address] [place] [address], [id number] , . [phone] Referring Provider: Mohsen Maria, [address] [place] [address], [id number] . tel:[phone] [facility], [address] [place] [address], [id number], tel:[phone] [facility] No Information 6 Nattyjayant Rinaldi. [address] [place] [address], [id number] , . tel:[phone] Referring Provider: Gentry Travis, [address] [place] [address], [address] . tel:[phone] Mohsen [facility] [place] [facility], [address] [place] [address], [id number], tel:[phone] [facility] No Information 6 Natty Rinaldi. [address] [place] [address], [id number] , . tel:[phone] Referring Provider: Mohsne Maria, [address] [place] [address], [id number] . tel:[phone] Mohsen [place] [facility] [facility] [place] [facility], [address] [place] [address], [id number], tel:[phone] [facility] [place] decreased vision (chief complaint) Combined Cat OS 6 Giovani Briseno. [address] [place] [address], [id number] , . tel:[phone] Referring Provider: Mohsen Maria, [address] [place] [address], [address] . tel:[phone] Mohsen Delgado [facility] [place] [facility], [address] [place] [address], [id number], tel:[phone] [facility] Blurred vision (chief complaint) Combined Cat OUCombined Cat OS 6 Natty Rinaldi. [address] [place] [address], [id number] , . tel:[phone] Referring Provider: Mohsen Maria, [address] [place] [address], [address] . tel:[phone] Mohsen Delgado [place] [facility] [place] [facility], [address] [place] [address], [id number], tel:[phone] [facility] No Information 6 Natty Rinaldi. [address] [place] [address], [id number] , [place]. tel:[phone] Referring Provider: Gentry Travis, [address] [place] [address], [address] . tel:[phone] Family History Family Member Type Diagnosis Age At Onset Sister Problem (finding) Cancer, unknown Mother Problem (finding) diabetes melli tus in first degree relative Immunizations Vaccine Date Status Comments Zoster administered Source: Other P rovider Pneumo (2 yrs or older)(PPV) administered Source: Other Provider Payers Payer name Insurance type Covered republican ID Authoriza tion(s) Medicare [place] [id number] Social History Type Description Quantity Date Captured [...] instructions. Call with any questions or concerns.Scribe: [id number]/H25.811/COMB CAT COD/IOL STD W/AK LASER TARGET PLANO [...] IOL. Call with any questions and concerns. [id number]/H25.812/COMB CAT COS/IOL STD w/AK LASER TARGET PLANO [...] have surgery, recommend phacoemulsification with intraocular lens. 12062/H25.812/COMB CATCOS/IOLSTD +/- [place] LASERTARGET PLANO OUTOPICAL/VISCOATIOL MASTER DONE, PENTACAM NEEDEDPOKaroline MOSS,[id number]: BB PERF CORNEAL SCAR ODCOD 62629/H25.811-If you choose the standard implant and have your astigmatism fixed you will have improved distance vision and will need readers.-If you choose the Standard implant you will need time study technologist glasses if you do not have your astigmatism fixed. Related to Combined Cat OS Follow up - For surgery Related to Combined Cat OS Assessments Type Assessment Date No Information Patient Care Teams Name Effective Dates (start - stop) Status Members No Information
--- OUTSIDE RECORDS SUMMARY | 2024-11-14 12:54 | XMS_ITS | Continuity of Care Document ---
Author Organization [facility] Schedule Address [address] [place] [address] Care Team Providers Care Manifold Builder Name Role Phone CARMINA MASONHEN Primary Care [...] By Organization Details Last Modified Time 10/28/2024 [id number] Pre-CallReanne marie chandler Pre-call review started at [...] Details Recorded Time Type 2 diabetes mellitus 90011104 Active 2022 ANGELICA [place], [place] - [facility] 3 10:32:52 Essential hypertension 18428664 Active 2022 ANGELICA [place], [place] - [facility] 3 10:32:49 Osteoporosis 67417859 Active 2022 Kassadnra Weston null, [place] - [facility] 3 13:23:41 Osteoarthritis 790776200 Active 2022 Kassandra Weston null, [place] - [facility] 3 13:23:50 Spinal stenosis 25100995 Active 2022 Kassandra Weston null, [place] - [facility] 3 13:24:00 Diabetes mellitus 27716060 Active 2022 ZZ JUAN MANUEL ZCharan SECRY null, [place] - [facility] 3 15:35:53 Anxiety 35550983 Active 2024 Garfield Quinonez NP [address] , [place], [address], [place] - [facility] 5 09:13:57 Pulmonary emphysema 16069656 Active 2024 Garfield Quinonez NP [address] , [place], [address], [place] - [facility] 5 09:14:23 Coronary arterioscleros is 13790507 Active 2024 Garfield Quinonez NP [address] , [place], [address], [place] - [facility] 5 09:16:09 Atrial fibrillation 45899184 Active 2024 Garfield Quinonez NP [address] , [place], [address], [place] - [facility] 5 09:16:19 Depressive disorder 92086147 Active 2024 Garfield Quinonez NP [address] , [place], [address], [place] - [facility] 5 09:16:44 Hyperlipidemia 43874812 Active 2024 Garfield Quinonez NP [address] , [place], [address], [place] - [facility] 5 09:17:01 Postoperative hypothyroidism 50485840 Active 2024 Garfield Quinonez NP [address] , [place], [address], [facility] 5 09:17:48 History of cerebrovascula r accident 931841581 Active 2024 Garfield Quinonez NP [address] , [place], [address], [facility] 5 09:19:05 Problem Notes None recorded. Procedures Surgical History Date Name Laterality Status Provider Name and Address Organization Details Recorded Time Thyroidectomy completed [facility] 03/13/2023 10:13:31 Gallbladder Surgery completed [facility] 03/13/2023 10:13:58 Hysterectomy completed [facility] 03/13/2023 10:14:03 Appendectomy completed [facility] 03/13/2023 10:14:08 bilateral cataract extraction completed Garfield Quinonez NP [address], [place], [address], [facility] 10/08/2024 09:19:37 Imaging Results None recorded. Procedure Notes None recorded. Medical Equipment None Reported. Allergies Allergen ID Allergen Name Allergen Category Reaction Reaction Severity Criticality Documentation Date Start Date Code Code System Note Provider Name and Address Organization Details Recorded Time Ceclor medicatio n Not available Not available Not available 03/13/202381208 5 RxNorm Burke More null, [facility] 3 10:13:01 15148 codeine medicatio n Not available Not available Not available 03/13/2023 2670 RxNorm Burke More null, [facility] 3 10:13:06 Medications Name Sig [...] Current Some Day Smoker Burke More null, [place] [facility] 03/13/2023 10:13:25 What Is Your Level Of Caffeine Consumption? Moderate [email or web address] Information not available 03/13/2023 How Much Tobacco Do You Smoke? 0.5 PPD [email or web address] Information not available 10/08/2024 Sex: Unknown Functional Status Question Answer Note LastModified by Organizat ion Details LastModified Time Do you use any illicit or recreational drugs? No [email or web address] Information not available 03/13/2023 Do you or have you ever used any other forms of tobacco or nicotine? No [email or web address] Information not available 03/13/2023 What is your level of alcohol consumption? None [email or web address] Information not available 03/13/2023 Mental Status None [...] SNOMED-CT Code Diagnosis ICD10 Code Diagnosis Note [id number] Garfield Quinonez NP [facility] Schedule [address] [place] [address] 09/30/2024 11:58:12 09/30/2024 12:00:40 Type 2 diabetes mellitus [id number] E11.65 Type 2 diabetes mellitus [id number] Garfield Quinonez NP [facility]Prov[facility] er Schedule [address] [place] [address] 10/08/2024 09:10:56 10/08/2024 09:29:13 Type 2 diabetes mellitus [id number] E11.65 Diabetes Ongoing Care Plan -Continue RPM [...] intake and water's role in decreasing glucose. [id number] Garfield Quinonez NP [facility] Schedule [address] [place] [address] 10/24/2024 13:53:25 10/24/2024 14:06:56 Type 2 diabetes mellitus [id number] E11.65 Type 2 diabetes mellitus [id number] Garfield Quinonez NP [facility] Schedule [address] [place] [address] 10/28/2024 13:48:53 10/28/2024 13:49:59 Diabetes mellitus 23464132 E11.9 Diabetes mellitus Type 2 serafin betes mellitus 89112997 E11.65 Type 2 diabetes mellitus Essential hypertension 48997566 I10 Essential hypertensi on Goals Section Goal [...] (MEDICARE REPLACEMENT/A DVANTAGE - PPO) Rox Whitfield [id number] Rox Whitfield OBGyn Episode No OBEpisode recorded.
--- OUTSIDE RECORDS SUMMARY | 2024-11-14 12:54 | XMS_ITS | Clinical Summary ---
Author Organization [facility] Address [address] [place] [address] Care Team Providers Care Hand Stonecutter Name Role Phone Darrell Lane MD Primary Care Provider [phone]- [phone] Encounters Date Type Department Care Team Description 10/20/2024 Telephone [facility] [address] [place] [address] Tara Lizarraga MD [facility] Clinical Concern/Question 10/16/2024 Telephone [facility] [address] [place] [address] Yissel Preciado APRN, DNP [facility] [...] Info) Description 02/18/2025 3:00 PM EDT Consult [facility] [address] [place] [address] Tara Lizarraga MD [address] [place] [address] Health Maintenance Due Date Last Done Comments [facility]-Bone Density Scan 1948 [facility]-Depression Screening 1948 [facility]-Hepatitis C Screening 1950 [facility]-Medicare Annual Wellness (AWV) 1948 [facility]-Infant/Child/Adol SDOH Screenings 1948 [facility]- SDOH Screenings 1966 [facility]-Adult SDOH Screenings 1966 [facility]-DTaP,Tdap,and Td Vaccines (1 - Tdap) 08/01/1967 [facility]-RSV Vaccine: 60+ Years or (1 - 1-dose 75+ series) 08/01/2023 [id number] Vaccine (3 - season) 2024 11/26/2021, 08/30/2020 [...] patient's age to complete this topic Insurance [facility] MEDICARE Care Teams Hand Stonecutter Relationship Specialty Start Date End Date Darrell Lane MD [address] [place] [address] PCP - General 10/15/24
--- OUTSIDE RECORDS SUMMARY | 2024-11-14 12:54 | XMS_ITS | Patient Health Record ---
Author Organization [facility] [address] [facility] [address] [place] [address] Care Team Providers Care Submersible Pilot Name Role Phone NAUN OLIVARES Unavailable [phone] Allergies Allergen (clinical drug ingredient) Drug/Non Drug [...] W/U Status Risk Notes Problem Fatty liver (491262171) Fatty liver (K76.0) Active confirmed Problem Constipation by delayed colonic transit (44721254) Constipation by delayed colonic transit (K59.01) Active confirmed Plan Of Treatment Pending Test Test Name Order Date Ultrasound : Liver (45024) 10/04/2017 Future Test Test Name Order Date CBC (H/H, RBC, INDICES, WBC, PLT) (1759) 10/05/2017 ALPHA FETOPROTEIN, TUMOR MARKER 10/06/19 18 HEMOGLOBIN A1c. (496) 10/05/2017 PROTHROMBIN TIME-INR (Quest Test Code: 8 847) 10/05/2017 Liver Fibrosis, FibroTest-ActiTest Panel (36527) 10/05/2017 Insurance Providers Payer Name Payer Address Payer Phone Subscriber Number Group Number Insured Name Patient Relationship to Insured Coverage Start Date Coverage End Date [facility] [address] [place] [address] [id number] Rox Whitfield Self - patient is the insured 8 Medical (General) History Medical History History ICD Code Hypothyroidism depression pancreatitis Surgical History Surgery Date(Month/Year) cholecystectomy hysterectomy thyroid
--- OUTSIDE RECORDS SUMMARY | 2024-11-14 12:54 | XMS_ITS | Continuity of Care Document ---
Author Organization [place] [facility] [place] [facility] [place], [facility] Address [address] [facility] [address] [place] [address] Assessment Encounter Date Assessment Date Assessment LastModified [...] did not previously change her GI symptoms. [email or web address] Not available 11/04/2024 09:29:29 Plan of Treatment Reminders Order Date Submit Date Provider Last Modified By Organization Details Last Modified Time Details Appointments None recorded. Lab None recorded. Referral None recorded. Procedures None recorded. Surgeries None recorded. Imaging None recorded. Medication Orders prucaloprid e 2 mg tablet 2024 025 [employer] [id number], [address] [facility] [address] [place], [id number], 09:29:09 Patient TargetsNo targets recorded. Patient InstructionsNo instructions recorded. Reason for Referral None Reported. Results Created Date Observation Date Name Description Value Unit Range Abnormal Flag Note LastModifiedBy Organization Detail LastModifiedTime 10/25/19 25 10/24/2024 CT ABD w/w/O [facility] [address] [place] [address] Phone: Fax: Name: MICHELLE CROUCH Exam Date: 025 : 949 Age 74 years Gender : F Access ion: [id number] Physic kleber: DANIELLE DARREN Facili [...] for referr ing MIKO, JUANIT A to [facility] al. Legall y authen ticate d by JAMI CAMPOS 10-24 13:36: 13 CC'ed Logic: Orderi ng Provid er: DANIELLE NORTON Attend ing Provid er: DUNCANCHER NORTON Referr ing Provid er: DANIELLE DARREN Admitt ing Provid er: DUNCAN DARREN [email or web address] [facility] [address], [place], [address], 11/03/2024 20:15:49 Result Notes None recorded. Problems Name Problem SNOMED Code Status Onset Date Resolution Date Notes Provider Name and Address Organization Details Recorded Time Left sided abdominal pain 575409099 Active 2023 Darren Duncan PA-C [address] , [place], [address] , [place] [facility] [place] [facility] [place] 4 15:29:23 Disorder of rectum 2643118 Active 2024 Darren Duncan PA-C [address] [facility], [place], [address] , [place] [facility] [place] [facility] [place] 5 12:14:59 Upper abdominal pain 12694417 Active 2024 Darren Duncan PA-C [address] [facility], [place], [address] , [place] [facility] [place] [facility] [place] 5 15:49:45 Burning epigastric pain 85858616 Active 2024 Darren Duncan PA-C [address], [place], [address] , [place] [facility] [place] [facility] [place] 5 17:11:13 Disorder of pancreas 5486858 Active 2024 Darren Duncan PA-C [address] , [place], [address] , [place] [facility] [place] [facility] [place] 5 17:04:58 External hemorrhoid s 53322835 Active 2024 Darren Duncan PA-C [address], [place], [address] , [place] [facility] [place] [facility] [place] 5 14:35:52 Cystocele 830919851 Active 2024 Darren Duncan PA-C [address], [place], [address] , [place] [facility] [place] [facility] [place] 5 09:28:27 Vitamin D deficiency 89734735 Active Lux Everidge null, [place] [facility] [place] 2 14:26:26 Senile osteoporos is 37326305 Active Lux [place]idge [place], [place] [facility] [place] [facility] [place] 2 14:26:26 Chronic idiopathic constipati on 31259121 Active Darren Duncan PA-C [address], [place], [address] , [place] [facility] [place] [facility] [place] 5 15:02:35 Dyslipidem ia 759358921 Active Lux Everidge null, [place] [facility] [place] 2 14:26:26 Mood disorder 02065821 Active Lux [place]idge [place], [place] [facility] [place] 2 14:26:26 Smoker 52321901 Active Lux [place]idge [place], [place] [facility] [place] 2 14:26:26 Paresthesi a 15881201 Active Lux Everidge [place], [place] [facility] [place] 2 14:26:26 History of polyp of colon 031389576 Active Lux Everidge [place], [place] [facility] [place] 2 14:26:27 Insomnia 510772945 Active Lux Everidge [place], [place] [facility] [place] 2 14:26:27 Chronic pancreatit is 711657370 Active Lux Everidge [place], [place] [facility] [place] 2 14:26:27 Nausea 840131500 Active Lux Everidge [place], [place] [facility] & [place] 2 14:26:27 Gastroesop hageal reflux disease 943937368 Active Darren Duncan PA-C [address], [place], [address] , [place] [facility] [place] [facility] [place] 5 15:38:17 Type 2 diabetes mellitus without complicati on 205328560 Active Lux Ward null, [place] [facility] [place] 2 14:26:27 Heterozygo us Factor V Leiden mutation 409398559 Active Lux [place], [place] [facility] [place] 2 14:26:27 Cerebrovas cular accident 763874534 Active Lux [place]idge [place], [place] [facility] [place] 2 14:26:27 Abdominal aortic atheroscle rosis 983543608 Active Lux Everidge [place] [facility] [place] 2 14:26:27 Acid reflux 533769847 Active Lux [place]idge [place] [facility] [place] 2 14:26:27 Hypothyroi dism 60717220 Active Lux Everidge [place] [facility] [place] 2 14:26:27 Abdominal pain 09745762 Active Lux [place] [facility] [place] 2 14:26:27 Constipati on 43920368 Active Lux [place], [place] [facility] [place] 2 14:26:27 Urinary incontinen ce 067375219 Active Lux [place]idge [place] [facility] [place] 2 14:26:27 Chronic mood disorder 9887679680512 08 Active 2022 Meghan Goldberg MD [address], [place], [address] , [place] [facility] [place] 3 13:33:16 Anxiety 16340040 Active 2022 Meghan Goldberg MD [address], [place], [address] , [place] [facility] [place] [facility] [place] 3 13:33:24 Lesion of liver 364504419 Active 2022 Darren Duncan PA-C [address], [place], [address] , [place] [facility] [place] [facility] [place] 3 15:11:32 Left upper quadrant pain 044324281 Active [address], [place], [address] , [place] [facility] [place] [facility] [place] 3 15:11:39 Abdominal distension , gaseous 282786650 Active 2022 Darren Duncan PA-C [address], [place], [address] , [place] [facility] [place] [facility] [place] 3 15:11:51 Irritable bowel syndrome characteri zed by constipati on 870867571 Active 2022 Darren Duncan PA-C [address], [place], [address] , [place] [facility] [place] 5 15:52:29 Exocrine pancreatic insufficie mey 00031210 Active 2022 Darren Duncan PA-C [address], [place], [address] , [place] [facility] [place] [facility] [place] 3 15:30:22 Problem Notes None recorded. Procedures Surgical History Date Name Laterality Status Provider Name and Address Organization Details Recorded Time Hysterectomy completed Lux Ward [place] [facility] [place] [facility] [place] 04/04/2022 14:31:13 Gallbladder Surgery completed Lux BERRY - [facility] [place] [facility] [place] 04/04/2022 14:31:18 Appendectomy completed Lux BERRY - [facility] [place] [facility] [place] 04/04/2022 14:31:23 Thyroidectomy completed Lux Ward [place] [facility] [place] [facility] [place] 04/04/2022 14:31:28 Imaging Results None recorded. Procedure Notes None recorded. Medical Equipment None Reported. Allergies Allergen ID Allergen Name Allergen Category Reaction Reaction Severity Criticality Documentation Date Start Date Code Code System Note Provider Name and Address Organization Details Recorded Time 53111 Ceclor medicatio n Not available Not available Not available 03/10/202247084 5 RxNorm Magy Peck [facility] & [place] 2 11:14:09 85550 codeine medicatio n Not available Not available Not available 04/04/2022 2670 RxNorm Lux Ward [facility], [facility] & [place] 2 14:26:17 Medications Name Sig [...] Updated DateTime 5 170.18 cm 25.7 kg/m2 29213.7 9 g 98.4 [degF] 96 % 96 % 80 /min 112/66 mm[Hg] Meghan Lorenzo [facility] & [place] 5 14:29:22 Social History Question Answer Notes LastModified by Organizat ion Details LastModified Time Tobacco Smoking Status Current Every Day Smoker Lux Ward [facility] & [place] 04/04/2022 14:30:16 How Much Tobacco [...] 1 completed Lux [place], [place] - [facility] & [place] 04/04/2022 14:32:16 COVID-19 vaccine, vector-nr, rS-Ad26, PF, 0.5 mL 1 completed Lux [place] [facility] [place] [facility] [place] 04/04/2022 14:32:16 Pneumococcal conjugate PCV20, polysaccharide KSP058 conjugate, adjuvant, PF 2 completed Lux [place] [facility] & [place] 04/04/2022 14:32:16 COVID-19, mRNA, LNP-S, PF, 30 mcg/0.3 mL dose, marito-sucrose 2 completed Lux [place] - [facility] & [place] 04/04/2022 14:32:16 Past Encounters Encounter ID Performer Location Encounter Start Date Encounter Closed Date Diagnosis/Indication Diagnosis SNOMED-CT Code Diagnosis ICD10 Code Diagnosis Note [id number] Darren Duncan PA-C [facility] [address] [facility] [address] [place] [address] 11/03/2024 14:22:03 11/03/2024 15:53:54 Left sided abdominal pain 396167087 R10.9 Chronic pancreatitis 235 930275 K86.1 Etiology is not known. Recent CT pancreas protocol showed course pancreatic calcificat ions. External hemorrhoids 239 70631 K64.4 Chronic id iopathic constipation 92240217 K59.04 Cystocele 876278880 N81. 10 Health Concerns Section Related Observation LastModified by Organization Detai ls LastModified Time None Recorded Concern Status LastModified by Organization Details LastModified Time None Recorded Payers Encounter Date Sequence Insurance Name Policy Number Policy Gallardo Covered Member ID Gallardo Member ID Guarantor Name 11/03/2024 1 [employer] (MEDICARE REPLACEMENT/A DVANTAGE - PPO) Rox Crouch [id number] Rox Crouch Notes Date Note Type Note Provider Name and Address Organization Details Recorded Time 11/03/2024 text/html PREVIOUS ( 5): Ms. Crouch returns to the office today for follow-up regarding LLQ pain, constipation, and abdominal bloating/distension. She was recent referred to [facility] for suspected rectocele. She has a [...] noted. She recently saw Dr. Bowling at [facility] and is being treated for prolapsing [...] intervention for prolapsed bladder. Darren Duncan PA-C [address], [place], [address], [facility] - [facility] 11/04/2024 09:29:45 OBGyn Episode No OBEpisode recorded.
--- OUTSIDE RECORDS SUMMARY | 2024-11-14 12:56 | XMS_ITS | Data Portability ---
Author Organization [place] [facility] [place] [facility] ADMIN Address [address] [place] [id number] Assessment Encounter Date Assessment Date Assessment LastModified [...] abdomen and pelvis with IV contrast at [facility] revealed nodular liver margins indicative of mild/early [...] may be eligible for the medication through [employer]s patient access support. -Creon samples provided in the office today. If no improvement at follow-up, plan for endoscopic procedures. [email or web address] Not available 02/29/2024 14:47:21 03/26/2024 03/26/2024 73 [...] abdomen and pelvis with IV contrast at [facility] revealed nodular liver margins indicative of mild/early [...] application for eligibility for the medication through [employer]s patient access support. -Additional Creon samples provided in the office today. If no improvement at follow-up, consider endoscopic procedures. [email or web address] Not available 03/26/2024 15:29:14 07/22/2024 07/22/2024 73 [...] a rectocele. -She reports recent MRI at [facility]. I will request those results to send along with her referral. *Regarding chronic pancreatitis: This was mentioned on prior CT, but not subsequent CT. EUS was indeterminate. f/u 6 weeks [email or web address] Not available 07/22/2024 21:09:14 09/01/2024 09/01/2024 74 [...] change her GI symptoms. f/u 3 months. [email or web address] Not available 09/02/2024 21:54:52 11/03/2024 11/03/2024 74 [...] did not previously change her GI symptoms. [email or web address] Not available 11/04/2024 09:29:29 Plan of Treatment Reminders Order Date Submit Date Provider Last Modified By Organization Details Last Modified Time Details Appointments None recorded. Lab None recorded. Referral colon & rectal surgeon referral 2024 025 [email or web address] Vanesa Rowley MD, [address], [address], [place], [address], 21:10:19 Procedures None recorded. Surgeries None recorded. Imaging None recorded. Medication Orders prucaloprid e 2 mg tablet 2024 [id number], [address] [place], [id number], 5 09:29:09 Nexium 20 mg capsule,del ayed release 2024 [facility] #20830, [address] [place], [id number], 5 15:51:47 lubiproston e 24 mcg capsule 2023 [facility] #57395, [address] [place], [id number], 5 15:00:21 Creon 36,000 unit-114,00 0 unit-180,00 0 unit capsule,del ayed release 2023 [facility]35724, [address] [place], [id number], 5 15:11:15 Patient TargetsNo targets recorded. Patient Instructions Encounter Date Encounter Id Patient Instructions Last Modified By Organization Details Last Modified Time 02/29/[id number] ABDOMEN AND PELVIS WITH CONTRAST 03/29/22 [...] abdomen with IV contrast in 3 months. [email or web address] Not available 02/29/2024 10:19:48 03/26/[id number] ABDOMEN AND PELVIS WITH CONTRAST 03/29/22 [...] abdomen with IV contrast in 3 months. [email or web address] Not available 03/26/2024 14:20:16 07/22/[id number] ABDOMEN AND PELVIS WITH CONTRAST 03/29/22 [...] contr ast No observ ation record ed. [email or web address] [facility] (Med Record) [address], [place], [address], 07/24/2024 16:53:28 06/2010/24/2024 CT ABD w/w/O [facility] [address] [place] [address] Phone: Fax: Name: MICHELLE WHITFIELD Exam Date: 025 : 949 Age 74 years Gender : F Access ion: [id number] Physic kleber: DARREN DUNCAN [facility] Facili ty HSV: Outpat ient Exam: CT [...] SULTANAH Admitt ing Provid er: DANIELLE SULTANAH [facility] [address] [facility], [place], [address], 11/03/2024 20:15:49 Result Notes None recorded. Problems Name Problem SNOMED Code Status Onset Date Resolution Date Notes Provider Name and Address Organization Details Recorded Time Left sided abdominal pain 013114598 Active 2023 Darren Duncan PA-C [address] , [place], [address] , [place] [facility] & [place] 4 15:29:23 Disorder of rectum 5831915 Active 2024 Darren Duncan PA-C [address] , [place], [address] , [place] [facility] & [place] 5 12:14:59 Upper abdominal pain 45302323 Active 2024 Darren Duncan PA-C [address] [place], [address] , [place] [facility] & [place] 5 15:49:45 Burning epigastric pain 65953077 Active 2024 Darren Duncan PA-C [address] , [place], [address] , [place] [facility] & [place] 5 17:11:13 Disorder of pancreas 9635163 Active 2024 Darren Duncan PA-C [address] [place], [address] , [place] [facility] & [place] 5 17:04:58 External hemorrhoid s 33155109 Active 2024 Darren Duncan PA-C [address] [place], [address] , [place] [facility] [place] [facility] [place] 5 14:35:52 Cystocele 391845320 Active 2024 Darren Duncan PA-C [address] , [place], [address] , [place] [facility] [place] [facility] [place] 5 09:28:27 Vitamin D deficiency 59585150 Active Lux Ever[place] null, [place] [facility] [place] [facility] [place] 2 14:26:26 Senile osteoporos is 13592647 Active Lux Ever[place] [facility] [place] [facility] [place] 2 14:26:26 Chronic idiopathic constipati on 34598357 Active Darren Duncan PA-C [address] [facility], [place], [address] , [place] [facility] [place] [facility] [place] 5 15:02:35 Dyslipidem ia 469780730 Active Lux [place], [place] [facility] [place] [facility] [place] 2 14:26:26 Mood disorder 99548816 Active Lux [place] [facility] [place] [facility] [place] 2 14:26:26 Smoker 14755886 Active Lux [place] [facility] [place] [facility] [place] 2 14:26:26 Paresthesi a 64623719 Active Lux Everidge [place] [facility] [place] 2 14:26:26 History of polyp of colon 830923285 Active Lux Ever[place] [facility] [place] [facility] [place] 2 14:26:27 Insomnia 617358856 Active Lux Ever[place] [facility] [place] [facility] [place] 2 14:26:27 Chronic pancreatit is 703124106 Active Lux Ever[place] [facility] [place] [facility] [place] 2 14:26:27 Nausea 533905469 Active Lux [place] [facility] [place] [facility] [place] 2 14:26:27 Gastroesop hageal reflux disease 534792399 Active Darren Duncan PA-C [address], [place], [address] , [place] [facility] [place] [facility] [place] 5 15:38:17 Type 2 diabetes mellitus without complicati on 000383820 Active Lux [place] [facility] [place] [facility] [place] 2 14:26:27 Heterozygo us Factor V Leiden mutation 449070788 Active Lux [place] [facility] [place] [facility] [place] 2 14:26:27 Cerebrovas cular accident 909013984 Active Lux [place] [facility] [place] [facility] [place] 2 14:26:27 Abdominal aortic atheroscle rosis 865714657 Active Lux [place] [facility] [place] [facility] [place] 2 14:26:27 Acid reflux 034928934 Active Lux Ever[place] [facility] [place] [facility] [place] 2 14:26:27 Hypothyroi dism 39154304 Active Lux Everidge [place] [facility] [place] [facility] [place] 2 14:26:27 Abdominal pain 74050865 Active Lux Ever[place] [facility] [place] [facility] [place] 2 14:26:27 Constipati on 60111930 Active Lux Everidge [place] [facility] [place] 2 14:26:27 Urinary incontinen ce 525184321 Active Lux [place] [facility] [place] [facility] [place] 2 14:26:27 Chronic mood disorder 9907679633361 08 Active 2022 Meghan Goldberg MD [address], [place], [address] , [place] [facility] [place] 3 13:33:16 Anxiety 10490634 Active 2022 Meghan Goldberg MD [address], [place], [address] , [place] [facility] [place] 3 13:33:24 Lesion of liver 622166792 Active 2022 Darren Duncan PA-C [address], [place], [address] , [place] [facility] [place] 3 15:11:32 Left upper quadrant pain 719993209 Active 2022 Darren Duncan PA-C [address], [place], [place], [address] [place] [address] , [place] [facility] [place] 3 15:11:39 Abdominal distension , gaseous 998538757 Active 2022 Darren Duncan PA-C [address], [place], [address] , [place] [facility] & [place] 3 15:11:51 Irritable bowel syndrome characteri zed by constipati on 396549922 Active 2022 Darren Duncan PA-C [address], [place], [address] , [place] [facility] [place] 5 15:52:29 Exocrine pancreatic insufficie nvy 58292222 Active 2022 Darren Duncan PA-C [address], [place], [address] , [place] [facility] & [place] 3 15:30:22 Problem Notes None recorded. Procedures Surgical History Date Name Laterality Status Provider Name and Address Organization Details Recorded Time Hysterectomy completed Lux Ward [place] [facility] [place] [facility] [place] 04/04/2022 14:31:13 Gallbladder Surgery completed Lux Ward [place] [facility] [place] [facility] [place] 04/04/2022 14:31:18 Appendectomy completed Lux Ward [place] [facility] [place] [facility] [place] 04/04/2022 14:31:23 Thyroidectomy completed Lux Ward [place] [facility] [place] [facility] [place] 04/04/2022 14:31:28 Imaging Results None recorded. Procedure Notes None recorded. Medical Equipment None Reported. Allergies Allergen ID Allergen Name Allergen Category Reaction Reaction Severity Criticality Documentation Date Start Date Code Code System Note Provider Name and Address Organization Details Recorded Time 79531 Ceclor medicatio n Not available Not available Not available 03/10/202288841 5 RxNorm Magy Peck null, [place] - [facility] & [place] 2 11:14:09 73335 codeine medicatio n Not available Not available Not available 04/04/2022 2670 RxNorm [place] - [facility] & [place] 2 14:26:17 Medications Name Sig Start Date [...] Updated DateTime 5 170.18 cm 25.5 kg/m2 20986.9 2 g 97.9 [degF] 77 /min 72 /min 97 % 97 % 119/70 mm[Hg] [facility] [place] 5 11:45:11 Date Recorded Body height Body mass index (BMI) Body weight Body temperature Heart rate Heart rate Oxygen saturation Oxygen saturation in Arterial blood by Pulse oximetry Systolic And Diastolic Provider Name and Address Organization Details Last Updated DateTime 5 170.18 cm 25.6 kg/m2 98434.3 5 g 97.4 [degF] 80 /min 75 /min 98 % 98 % 106/69 mm[Hg] [facility] [place] 5 14:52:06 Date Recorded Body height Body mass index (BMI) Body weight Body temperature Oxygen saturation Oxygen saturation in Arterial blood by Pulse oximetry Heart rate Systolic And Diastolic Provider Name and Address Organization Details Last Updated DateTime 5 170.18 cm 25.7 kg/m2 92310.7 9 g 98.4 [degF] 96 % 96 % 80 /min 112/66 mm[Hg] Meghan Lorenzo [facility] & [place] 5 14:29:22 Date Recorded Body height Body mass index (BMI) Body weight Heart rate Heart rate Oxygen saturation Oxygen saturation in Arterial blood by Pulse oximetry Body temperature Systolic And Diastolic Provider Name and Address Organization Details Last Updated DateTime 4 170.18 cm 26.7 kg/m2 92158.4 2 g 77 /min 74 /min 96 % 96 % 98.1 [degF] 169/71 mm[Hg] Maite Chan [facility] & [place] 4 09:42:56 Date Recorded Body height Body mass index (BMI) Body weight Body temperature Oxygen saturation Oxygen saturation in Arterial blood by Pulse oximetry Heart rate Systolic And Diastolic Provider Name and Address Organization Details Last Updated DateTime 4 170.18 cm 26.6 kg/m2 05866.7 g 96.9 [degF] 95 % 95 % 97 /min 118/78 mm[Hg] Adelso Hinojosa [facility] & [place] 4 13:58:10 Social History Question Answer Notes LastModified by [employer] Details LastModified Time Tobacco Smoking Status Current [facility] [place] 04/04/2022 14:30:16 How Much Tobacco Do You Smoke? 0.25 PPD Information not available 04/04/2022 How Many Years Have You Smoked Tobacco? 60 Information not available 04/04/2022 Sex: Unknown Functional Status Question Answer Note LastModified by [employer] Details LastModified Time Do you use any [...] Obesity Y Arthritis Y Back Problems Y Thyroid Problems Y Stroke Y GI Problems Y COPD Y Lung Disease Y Clotting Disorder Y Osteoporosis/Osteopenia Y Reflux/GERD [...] [place], [place] [facility] [place] [facility] [place] 04/04/2022 14:32:16 COVID-19 vaccine, vector-nr, rS-Ad26, PF, 0.5 mL 1 completed Lux [place], [place] [facility] [place] [facility] [place] 04/04/2022 14:32:16 Pneumococcal conjugate PCV20, polysaccharide KIR695 conjugate, adjuvant, PF 2 completed Lux [place], [place] [facility] [place] & [place] 04/04/2022 14:32:16 COVID-19, mRNA, LNP-S, PF, 30 mcg/0.3 mL dose, marito-sucrose 2 completed Lux [place], [place] [facility] [place] & [place] 04/04/2022 14:32:16 Past Encounters Encounter ID Performer Location Encounter Start Date Encounter Closed Date Diagnosis/Indication Diagnosis SNOMED-CT Code Diagnosis ICD10 Code Diagnosis Note [id number] Patrice Miller MD [facility] [address] [place] [address] 03/10/2022 10:33:26 03/10/2022 12:07:12 Abdominal pain 30797623 R10.9 Chronic id iopathic constipation 74925630 K59.04 Nausea 750325606 R11.0 [id number] Meghan Goldberg MD [address] [place] [address] 04/04/2022 14:12:31 04/04/2022 14:53:18 Gastroesophageal reflux disease 703960243 K21.00 Nausea 745545064 R11.0 Major depr essive disorder 222070770 F32.9 Anxiety 92297472 F41.9 [id number] Meghan Goldberg MD [address] [place] [address] 05/09/2022 12:50:17 05/09/2022 13:33:30 Anxiety 46038094 F41.9 she is agreeable to trying 1/2 of the 7.5mg tablet once a day to work up to the BID dosing but declines 5mg rx. Mood disorder 86884779 F 39 pt declines any new meds, I provided the number to [facility] and asked that she please call today for an appt Nausea 776370351 R11.0 she asks for refill for prn use Chronic id iopathic constipation 96443611 K59.04 [id number] Pippa Medina MD [facility] General Surgery [address] [place] [address],[address] [place] [address] 08/24/2022 13:58:50 08/24/2022 14:43:01 Mass of left adrenal gland 4688092698 3741026 E27.8 new left-sided adrenal mass. I have ordered 24 hour urine and plasma labs. I will contact patient with the results. We discussed that small, nonfunctio vane adenomas will likely be followed for a period of time. Functionin g masses or ones that enlarged over time we will require excision, and she would be referred to [facility] for this. [id number] Darren Duncan PA-C [facility] [address] [place] [address] 03/06/2023 13:52:11 03/06/2023 15:22:51 Lesion of liver 019776712 K76.9 Left upper quadrant pain 829902171 R10.12 Abdominal distension, gaseous 921647675 R14.0 Irritable bowel syndrome characterized by constipation 587686468 K58.1 [id number] Darren Duncan PA-C [facility] [address] [place] [address] 02/29/2024 09:30:42 02/29/2024 11:05:29 Lesion of liver 850205545 K76.9 Left upper quadrant pain 773650766 R10.12 Abdominal distension, gaseous 486650802 R14.0 Irritable bowel syndrome characterized by constipation 066755369 K58.1 Chronic pancreatitis 235 803321 K86.1 Exocrine p ancreatic insufficiency 61442063 K86.81 [id number] Darren Duncan PA-C [facility] [place] [address] 03/26/2024 13:47:22 03/26/2024 14:43:37 Chronic pancreatitis 251469035 K86.1 Exocrine p ancreatic insufficiency 58965342 K86.81 Patient has an MRI abd/pelvis scheduled on 04/16 by her PCP at [facility]. Chronic id iopathic constipation 86893473 K59.04 Left sided abdominal pain 744889413 R10.9 [id number] Darren Duncan PA-C [facility] [place] [address] 07/22/2024 11:37:53 07/22/2024 12:29:14 Left sided abdominal pain 053760316 R10.9 Chronic id iopathic constipation 31728972 K59.04 Chronic pancreatitis 235 342973 K86.1 Disorder of rectum 58244 04 N81.6 [id number] WEI Lui-C [facility] [place] [address] 09/01/2024 14:42:37 09/01/2024 16:11:17 Disorder of rectum 9956269 N81.6 Left sided abdominal pain 626849550 R10.9 Chronic pancreatitis 235 248126 K86.1 Upper abdominal pain 831 75099 R10.10 Irritable bowel syndrome characterized by constipation 723171083 K58.1 [id number] Darren Duncan PA-C [facility] [place] [address] 11/03/2024 14:22:03 11/03/2024 15:53:54 Left sided abdominal pain 378912476 R10.9 Chronic pancreatitis 235 729107 K86.1 Etiology is not known. Recent CT pancreas protocol showed course pancreatic calcificat ions. External hemorrhoids 239 22063 K64.4 Chronic id iopathic constipation 87585635 K59.04 Cystocele 143307279 N81. 10 Health Concerns Section Related Observation LastModified by Organization Detai ls LastModified Time None Recorded Concern Status LastModified by Organization Details LastModified Time None Recorded Advance Directives Directive None Recorded Payers Insurance Date Sequence Insurance Name Policy Number Policy Gallardo Covered Member ID Gallardo Member ID Guarantor Name 02/29/2024 1 [place] [id number] Rox M Whit[place] [id number] Rox Whitfield 02/29/2024 1 [employer] (MEDICARE REPLACEMENT/ ADVANTAGE - PPO) Rox Whitfield [id number] Rox Whitfield 02/29/2024 1 [employer] [place] Rox [place] [id number] Rox Whitfield 02/29/2024 3 [employer] (MEDICARE REPLACEMENT/ ADVANTAGE - HMO) Rox M Whitfield [id number] Rox Whitfield 02/29/2024 1 [employer] [place]/ [place]ANT[place] - [place]MO) Rox Whitfield [id number] Rox Whitfield 02/29/2024 1 [place] Rox M [place]field [id number] Rox Whitfield 02/29/2024 1 [employer] (MEDICARE REPLACEMENT/ ADVANTAGE - HMO) Rox Whitfield [id number] Rox Whitfield 11/04/2024 1 [employer] (MEDICARE REPLACEMENT/ ADVANTAGE - PPO) Rox Whitfield [id number] Rox Whitfield 02/29/2024 1 [employer] (MEDICARE REPLACEMENT/ ADVANTAGE - HMO) Rox M Whitfield [id number] Rox Whitfield 02/29/2024 2 [employer] (MEDICARE REPLACEMENT/ ADVANTAGE - HMO) Rox [place] [id number] Rox Whitfield 02/29/2024 1 [employer] [place] Rox [place] [id number] Rox [place]field 02/29/2024 1 [employer] (MEDICARE REPLACEMENT/ ADVANTAGE - HMO) Rox [place] [id number] Rox [place] Notes Date Note Type Note [...] constipation is noted. Darren Duncan PA-C [address] [facility], [place], [address], [place] [facility] [place] [facility] [place] 02/29/2024 14:47:59 03/26/2024 text/html CURRENT (): Ms. [...] stools. Darren Duncan PA-C [address], [place], [address], [facility] & [place] 03/26/2024 15:30:09 07/22/2024 text/html CURRENT (07/22/24 ): [...] days. Darren Duncan PA-C [address], [place], [address], [facility] & [place] 07/22/2024 21:10:42 09/01/2024 text/html CURRENT (09/01/24 ): [...] distension in the LLQ. Darren Duncan PA-C [address], [place], [address], [place] [facility] [place] [facility] [place] 09/02/2024 21:55:38 11/03/2024 text/html PREVIOUS ( 5): Ms. Whitfield returns to the office today for follow-up regarding LLQ pain, constipation, and abdominal bloating/distension. She was recent referred to [facility] for suspected rectocele. She has a consultation [...] noted. She recently saw Dr. Bowling at [facility] and is being treated for prolapsing internal [...] intervention for prolapsed bladder. Darren Duncan PA-C [address], [place], [address], [place] [facility] [place] [facility] [place] 11/04/2024 09:29:45 OBGyn Episode No OBEpisode recorded.
--- OUTSIDE RECORDS SUMMARY | 2024-11-14 12:56 | XMS_ITS | Continuity of Care Document ---
Author Organization [place] [facility], [facility]Nursing Schedule Address [address] [place] [address] Care Team Providers Care Vice President Planning Name Role Phone MIRZA MASON Primary Care [...] By Organization Details Last Modified Time 09/26/2024 [id number] The member is cu [place]ly located [place]. Pre-CallReview Readings Pre-call review started at 2024-09-26 [...] Confirmation The member is currently located in [place]. The member is willing and able to [...] Details Recorded Time Type 2 diabetes mellitus 33763755 Active 2022 ANGELICA DOMINGUEZ SECORY null, [place] - [facility] 3 10:32:52 Essential hypertension 77783197 Active 2022 ANGELICA DOMINGUEZ SECORY [place], [place] [facility] 3 10:32:49 Osteoporosis 11198972 Active 2022 Kassandra Weston null, [place] - [facility] 3 13:23:41 Osteoarthritis 812377271 Active 2022 Kassandra Weston null, [place] [facility] 3 13:23:50 Spinal stenosis 84955183 Active 2022 Kassandra Weston null, [place] - [facility] 3 13:24:00 Diabetes mellitus 83208044 Active 2022 ANGELICA DOMINGUEZ SECORY null[place] [facility] 3 15:35:53 Anxiety 02390089 Active 2024 Garfield Quinonez NP [address] , [place], [address], [place] - [facility] 5 09:13:57 Pulmonary emphysema 55398889 Active 2024 Garfield Quinonez NP [address] , [place], [address], [place] [facility] 5 09:14:23 Coronary arterioscleros is 74923178 Active 2024 Garfield Quinonez NP [address] , [place], [address], [place] [facility] 5 09:16:09 Atrial fibrillation 16509637 Active 2024 Garfield Quinonez NP [address] , [place], [address], [place] [facility] 5 09:16:19 Depressive disorder 22198576 Active 2024 Garfield Quinonez NP [address] , [place], [address], [place] [facility] 5 09:16:44 Hyperlipidemia 22486107 Active 2024 Garfield Quinonez NP [address] , [place], [address], [place] [facility] 5 09:17:01 Postoperative hypothyroidism 21815904 Active 2024 Garfield Quinonez NP [address] , [place], [address], [place] [facility] 5 09:17:48 History of cerebrovascula r accident 874515059 Active 2024 Garfield Quinonez NP [address] , [place], [address], [place] [facility] 5 09:19:05 Problem Notes None recorded. Procedures Surgical History Date Name Laterality Status Provider Name and Address Organization Details Recorded Time Thyroidectomy completed Burke More [place] - [facility] 03/13/2023 10:13:31 Gallbladder Surgery completed Burke Angelaers [place] - [facility] 03/13/2023 10:13:58 Hysterectomy completed Burke Angelaers [place] - [facility] 03/13/2023 10:14:03 Appendectomy completed Burke More [facility] 03/13/2023 10:14:08 bilateral cataract extraction completed Garfield Quinonez, ERROL [address], [place], [address], [facility] 10/08/2024 09:19:37 Imaging Results None recorded. Procedure Notes None recorded. Medical Equipment None Reported. Allergies Allergen ID Allergen Name Allergen Category Reaction Reaction Severity Criticality Documentation Date Start Date Code Code System Note Provider Name and Address Organization Details Recorded Time Ceclor medicatio n Not available Not available Not available 03/13/202357586 5 RxNorm Burke quezada, [facility] 3 10:13:01 codeine medicatio n Not available Not available Not available 03/13/2023 2670 RxNorm Burke quezada, [facility] 3 10:13:06 Medications Name Sig [...] Status Current Some Day Smoker Burke Angelaers [facility], [place] - [facility] 03/13/2023 10:13:25 What Is Your Level Of Caffeine Consumption? Moderate [email or web address] Information not available 03/13/2023 How Much Tobacco Do You Smoke? 0.5 PPD [email or web address] Information not available 10/08/2024 Sex: Unknown Functional Status Question Answer Note LastModified by Organizat ion Details LastModified Time Do you use any illicit or recreational drugs? No [email or web address] Information not available 03/13/2023 Do you or have you ever used any other forms of tobacco or nicotine? No [email or web address] Information not available 03/13/2023 What is your level of alcohol consumption? None [email or web address] Information not available 03/13/2023 Mental Status None [...] SNOMED-CT Code Diagnosis ICD10 Code Diagnosis Note [id number] ERROL [facility] Schedule [address] [place] [address] 08/29/2024 14:34:14 08/29/2024 14:52:41 Diabetes mellitus 50367364 E11.9 Diabetes mellitus 985233 Garfield Quinonez NP [facility] Schedule [address] [place] [address] 08/29/2024 16:25:25 08/29/2024 16:44:57 Diabetes mellitus 41060531 E11.9 Diabetes mellitus Type 2 serafin betes mellitus 68190521 E11.65 Type 2 diabetes mellitus Essential hypertension 41430389 I10 Essential hypertensi on 073791 Garfield Quinonez NP [facility] Schedule [address] [place] [address] 09/01/2024 15:45:13 09/01/2024 15:50:55 Diabetes mellitus 49355483 E11.9 Diabetes mellitus 080284 Garfield Quinonez NP [facility] Schedule [address] [place] [address] 09/12/2024 14:30:22 09/12/2024 14:48:17 Type 2 diabetes mellitus 26414360 E11.65 Type 2 diabetes mellitus 224556 ERROL [facility]Nurs[facility] Schedule [address] [place] [address] 09/26/2024 14:24:11 09/26/2024 14:42:18 Type 2 diabetes mellitus 56574151 E11.65 Type 2 diabetes mellitus Goals Section [...] (MEDICARE REPLACEMENT/A DVANTAGE - PPO) Rox Whitfield [id number] Rox Whitfield OBGyn Episode No OBEpisode recorded.
--- OUTSIDE RECORDS SUMMARY | 2024-11-14 12:56 | XMS_ITS | Encounter Summary ---
Author Organization Healthcare Address [address] [place] [address] Care Team Providers Care Sales Receptionist Name Role Phone Darrell Lane MD Primary Care Provider +1- [phone] Reason for Visit * Reason Onset Date Comments HCN Clinical Concern/Question 10/20/2024 Encounter Details Date Type Department Care Team (Late st Contact Info) Description 10/20/2024 Telephone [facility] [address] [place] [address] Tara Lizarraga MD [address] [place] [address] HCN Clinical Concern/Question Social History Tobacco Use Types Packs/Day Years Used Date Smoking Tobacco: Never Assessed Comments Unknown Sex and Gender Information Value Date Recorded Sex Assigned at Not on file Legal Sex Female 12:33 PM EDT Gender Identity Not on file Sexual Orientation Not on file documented as of this encounter Miscellaneous Notes * Telephone Encounter - RuddyCisco Meghan London - 10/20/2024 10:57 AM EDT Patient Phone Message Reason for Call: New patient scheduled with Yissel Preciado APRN for dysuria, nocturnal frequency. Referring requesting Dr. Alistair Lizarraga. Patient returning call, states had a missed call and uncertain if Urology calling back to change appointment. Requesting call back. Request routed to both Clinical and it help desk analyst staff per previous note for scheduling./aft Best contact number and optimal time of day to reach caller: Patient can be reached at [phone] Note: Please do not reply to this [...] Info) Description 02/18/2025 3:00 PM EDT Consult [facility] Urology [address] [place] [address] Tara Lizarraga MD [address] [place] [address] documented as of this encounter Visit Diagnoses Not on filedocumented in this encounter Care Teams Sales Receptionist Relationship Specialty Start Date End Date Darrell Lane MD [address] [place] [address] PCP - General 10/15/24 documented as of this encounter
--- OUTSIDE RECORDS SUMMARY | 2024-11-14 12:56 | XMS_ITS | Continuity of Care Document ---
Author Organization [place] - [facility], [facility]Nurs[facility] Schedule Address [address] [place] [address] Care Team Providers Care Fuel Cell Test Engineer Name Role Phone MIRZA MASON Primary Care [...] By Organization Details Last Modified Time 09/30/2024 [id number] Pre-CallReanne marie chandler Pre-call review started at [...] Details Recorded Time Type 2 diabetes mellitus 05197933 Active 2022 ANGELICA DOMINGUEZ SECORY null, [place] - [facility] 3 10:32:52 Essential hypertension 92599769 Active 2022 ANGELICA DOMINGUEZ SECORY [place] [facility] 3 10:32:49 Osteoporosis 34626083 Active 2022 Kassandraemely Weston null, [place] [facility] 3 13:23:41 Osteoarthritis 453746250 Active 2022 Kassandra Weston null[place] [facility] 3 13:23:50 Spinal stenosis 20178127 Active 2022 Kassandra Weston null[place] [facility] 3 13:24:00 Diabetes mellitus 34805678 Active 2022 ANGELICA DOMINGUEZ SECORY [place] [facility] 3 15:35:53 Anxiety 22487873 Active 2024 Garfield Quinonez NP [address] , [place], [address], [place] [facility] 5 09:13:57 Pulmonary emphysema 72602455 Active 2024 Garfield Quinonez NP [address] , [place], [address], [place] [facility] 5 09:14:23 Coronary arterioscleros is 95199270 Active 2024 Garfield Quinonez NP [address] , [place], [address], [place] [facility] 5 09:16:09 Atrial fibrillation 80438272 Active 2024 Garfield Quinonez NP [address] , [place], [address], [place] [facility] 09:16:19 Depressive disorder 19256874 Active 2024 Garfield Quinonez NP [address] , [place], [address], [facility] 5 09:16:44 Hyperlipidemia 57907923 Active 2024 Garfield Quinonez NP [address] , [place], [place], [address] [place] [address] 6, [facility] 5 09:17:01 Postoperative hypothyroidism 49241346 Active 2024 Garfield Quinonez NP [address] , [place], [place], [address] [place] [address] 6, [facility] 5 09:17:48 History of cerebrovascula r accident 820745711 Active 2024 Garfield Quinonez NP [address] , [place], [place], [address] [place] [address] 6, [facility] 09:19:05 Problem Notes None recorded. Procedures Surgical History Date Name Laterality Status Provider Name and Address Organization Details Recorded Time [facility]roidectomy completed [facility] 03/13/2023 10:13:31 [facility] 10:13:58 Hysterectomy completed [facility] 03/13/2023 10:14:03 Appendectomy completed [facility] 03/13/2023 10:14:08 bilateral cataract extraction completed Garfield Quinonez NP [address], [place], [address], [facility] 10/08/2024 09:19:37 Imaging Results None recorded. Procedure Notes None recorded. Medical Equipment None Reported. Allergies Allergen ID Allergen Name Allergen Category Reaction Reaction Severity Criticality Documentation Date Start Date Code Code System Note Provider Name and Address Organization Details Recorded Time Ceclor medicatio n Not available Not available Not available 03/13/202379424 5 RxNorm Burke Derik null, [facility] 3 10:13:01 codeine medicatio n Not available Not available Not available 03/13/2023 2670 RxNorm Burke quezada, [facility] 3 10:13:06 Medications Name Sig Start Date [...] Is Your Level Of Caffeine Consumption? Moderate [email or web address] Information not available 03/13/2023 How Much Tobacco Do You Smoke? 0.5 PPD [email or web address] Information not available 10/08/2024 Sex: Unknown Functional Status Question Answer Note LastModified by Organizat ion Details LastModified Time Do you use any illicit or recreational drugs? No [email or web address] Information not available 03/13/2023 Do you or have you ever used any other forms of tobacco or nicotine? No [email or web address] Information not available 03/13/2023 What is your level of alcohol consumption? None [email or web address] Information not available 03/13/2023 Mental Status None [...] SNOMED-CT Code Diagnosis ICD10 Code Diagnosis Note 397374 ERROL Wells_Nursin g Schedule [address] [place] [address] 09/01/2024 15:45:13 09/01/2024 15:50:55 Diabetes mellitus 19604958 E11.9 Diabetes mellitus 698714 ERROL [facility]Nursin [facility] Schedule [address] [place] [address] 09/12/2024 14:30:22 09/12/2024 14:48:17 Type 2 diabetes mellitus 15915619 E11.65 Type 2 diabetes mellitus 544978 ERROL [facility] Schedule [address] [place] [address] 09/26/2024 14:24:11 09/26/2024 14:42:18 Type 2 diabetes mellitus 99456501 E11.65 Type 2 diabetes mellitus 696411 ERROL Wells_Lyndsey g Schedule [address] [place] [address] 09/30/2024 11:58:12 09/30/2024 12:00:40 Type 2 diabetes mellitus 90725155 E11.65 Type 2 diabetes mellitus Goals Section [...] (MEDICARE REPLACEMENT/A DVANTAGE - PPO) Rox Whitfield [id number] Rox Whitfield OBGyn Episode No OBEpisode recorded.
--- OUTSIDE RECORDS SUMMARY | 2024-11-14 12:56 | XMS_ITS | Encounter Summary ---
Author Organization Healthcare Address [address] [place] [address] Care Team Providers Care Student Development Coordinator Name Role Phone Darrell Lane MD Primary Care Provider +1- [phone] Reason for Visit * Reason Onset Date Comments HCN Clinical Concern/Question 10/16/2024 Encounter Details Date Type Department Care Team (Late st Contact Info) Description 10/16/2024 Telephone [facility] [address] [place] [address] Yissel Preciado, [employer], DNP [address] [place] [address] HCN Clinical Concern/Question Social History [...] seen by Dr. Lizarraga. Best contact number: [phone] (home) Optimal time of day to reach caller: ANYTIME Additional comments/information from caller: None Note: Please do not reply to this message. Follow-up communication and further actions as a result of this message need to be communicated with the patient directly, if the patient is not active onMyChart. If the patient is active on MyChart, they will receive notification of the communication/outcome via [facility]. documented in this encounter Plan of Treatment Upcoming Encounters Date Type Department Care Team (Late st Contact Info) Description 02/18/2025 3:00 PM EDT Consult [facility] Urology [address] [place] [address] Tara Lizarraga MD [address] [place] [address] documented as of this encounter Visit Diagnoses Not on filedocumented in this encounter Care Teams Student Development Coordinator Relationship Specialty Start Date End Date Darrell Lane MD [address] [place] [address] PCP - General 10/15/24 documented as of this encounter
--- OUTSIDE RECORDS SUMMARY | 2024-11-14 12:56 | XMS_ITS | Continuity of Care Document ---
Author Organization [place] - [facility], PS_Provider Schedule Address [address] [place] [address] Care Team Providers Care Inspector Plating Name Role Phone MIRZA MASON Primary Care [...] By Organization Details Last Modified Time 10/08/2024 [id number] intermediate designer goal of Blood Pressure 130/80 Not available Not available Not available intermediate designer goal of Hemoglobin A1C < 7% Not available Not available Not available intermediate designer goal of Glucose, Fasting < 130 Not available Not available Not available penitentiary goal of Glucose, 2 Hour Postprandial < 180 Not available Not available Not available penitentiary goal of LDL Direct < 70 mg/dL Not available Not available Not available Avoidance of hypoglycemia (any glucose <70) Glucose Test Frequency: QD Fasting [email or web address] Not available 10/08/2024 09:24:58 Patient Instructions Encounter Date Encounter Id Patient Instructions Last Modified By Organization Details Last Modified Time 10/08/2024 [id number] Ms. Whitfield is a(n ) 74 year [...] the [place]. Does the member have the [employer] denis downloaded? No, member declined Next [place] appointment is confirmed on 10/24/2024 between 02:00 PM and 03:00 PM Eastern Time. Was there a need during this visit to complete a Member Service Request? No. If yes, provide a summary of the request. [email or web address] Not available 10/08/2024 09:28:47 Reason for Referral None Reported. Problems Name Problem SNOMED Code Status Onset Date Resolution Date Notes Provider Name and Address Organization Details Recorded Time Type 2 diabetes mellitus 05129583 Active 2022 ANGELICA DOMINGUEZ SECORY null, [place] - [facility] 3 10:32:52 Essential hypertension 41106760 Active 2022 ANGELICA DOMINGUEZ SECORY null, [place] [facility] 3 10:32:49 Osteoporosis 83704243 Active 2022 Kassandra Weston null, [place] - [facility] 3 13:23:41 Osteoarthritis 723479002 Active 2022 Kassandra Weston null, [place] [facility] 3 13:23:50 Spinal stenosis 98526640 Active 2022 Kassandra Weston null, [place] [facility] 3 13:24:00 Diabetes mellitus 95562977 Active 2022 ANGELICA DOMINGUEZ SECORY null, [place] [facility] 3 15:35:53 Anxiety 03967414 Active 2024 Garfield Qiunonez NP [address] , [place], [address], [place] [facility] 5 09:13:57 Pulmonary emphysema 82978169 Active 2024 Garfield Quinonez NP [address] , [place], [address], [place] [facility] 5 09:14:23 Coronary arterioscleros is 12573787 Active 2024 Garfield Quinonez NP [address] , [place], [address], [place] [facility] 5 09:16:09 Atrial fibrillation 06294516 Active 2024 Garfield Quinonez NP [address] , [place], [address], [place] [facility] 5 09:16:19 Depressive disorder 67545539 Active 2024 Garfield Quinonez NP [address] , [place], [address], [place] [facility] 5 09:16:44 Hyperlipidemia 47578565 Active 2024 Garfield Quinonez NP [address] , [place], [address], [place] [facility] 5 09:17:01 Postoperative hypothyroidism 23966210 Active 2024 Garfield Quinonez NP [address] , [place], [address], [place] [facility] 5 09:17:48 History of cerebrovascula r accident 896962512 Active 2024 Garfield Quinonez NP [address] , [place], [address], [place] [facility] 09:19:05 Problem Notes None recorded. Procedures Surgical History Date Name Laterality Status Provider Name and Address Organization Details Recorded Time Thyroidectomy completed Burke [facility] - [facility] 03/13/2023 10:13:31 Gallbladder Surgery completed Burke [facility] - [facility] 03/13/2023 10:13:58 [facility] 03/13/2023 10:14:03 Appendectomy completed [facility] - [facility] 03/13/2023 10:14:08 bilateral cataract extraction completed Garfield Quinonez NP [address], [place], [address], [facility] - [facility] 10/08/2024 09:19:37 Imaging Results None recorded. Procedure Notes None recorded. Medical Equipment None Reported. Allergies Allergen ID Allergen Name Allergen Category Reaction Reaction Severity Criticality Documentation Date Start Date Code Code System Note Provider Name and Address Organization Details Recorded Time Ceclor medicatio n Not available Not available Not available 03/13/2023 79620 5 RxNorm Burke quezada, [facility] 3 10:13:01 codeine medicatio n Not available Not available Not available 03/13/2023 2670 RxNorm Burke More null, [facility] 3 10:13:06 Medications Name Sig Start [...] Updated DateTime 10/08/2024 160.02 cm 29.6 kg/m2 73585.93 g Garfield Quinonez NP [address], [place], [address], [facility] 10/08/2024 09:12:56 Social History Question Answer Notes LastModified by [employer] Details LastModified Time Tobacco Smoking Status Current Some Day Smoker Burke Derik quezada, [facility] 03/13/2023 10:13:25 What Is Your Level Of Caffeine Consumption? Moderate [email or web address] Information not available 03/13/2023 How Much Tobacco Do You Smoke? 0.5 PPD [email or web address] Information not available 10/08/2024 Sex: Unknown Functional Status Question Answer Note LastModified by [employer] Details LastModified Time Do you use any illicit or recreational drugs? No [email or web address] Information not available 03/13/2023 Do you or have you ever used any other forms of tobacco or nicotine? No [email or web address] Information not available 03/13/2023 What is your level of alcohol consumption? None [email or web address] Information not available 03/13/2023 Mental Status None [...] SNOMED-CT Code Diagnosis ICD10 Code Diagnosis Note 028155 Garfield uQinonez NP [facility] Schedule [address] [place] [address] 09/12/2024 14:30:22 09/12/2024 14:48:17 Type 2 diabetes mellitus 33041545 E11.65 Type 2 diabetes mellitus 158727 Garfield Quinonez NP [facility] Schedule [address] [place] [address] 09/26/2024 14:24:11 09/26/2024 14:42:18 Type 2 diabetes mellitus 49724438 E11.65 Type 2 diabetes mellitus 998228 Garfield Quinonez NP [facility] Schedule [address] [place] [address] 09/30/2024 11:58:12 09/30/2024 12:00:40 Type 2 diabetes mellitus 47454543 E11.65 Type 2 diabetes mellitus 792220 Garfield Quinonez NP [facility]Prov[facility] er Schedule [address] [place] [address] 10/08/2024 09:10:56 10/08/2024 09:29:13 Type 2 diabetes mellitus 75724410 E11.65 Diabetes Ongoing Care Plan -Continue RPM [...] (MEDICARE REPLACEMENT/A DVANTAGE - PPO) Rox Whitfield [id number] Rox Whitfield Notes Date Note Type Note [...] location today is outside the state in [place] home address, has patient moved?N/AIf patient has moved, was address updated in [facility]?N/A Recent illnesses or hospitalizations: . Diet:Low [...] Quinonez, ERROL [address], [place], [address], [place] - [facility] 10/08/2024 09:28:49 OBGyn Episode No OBEpisode recorded.
--- OUTSIDE RECORDS SUMMARY | 2024-11-14 12:57 | XMS_ITS | Patient Health Record ---
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) Active confirmed Problem 448893209 Chronic pain disorder (G89.4) Active confirmed Problem 62813187 Osteoarthritis, chronic (M19.90) Active confirmed Problem 35308618 Hypothyroidism, iatrogenic (E03.2) Active confirmed Problem 102848598 Insomnia, unspecified type (G47.00) Active confirmed Plan Of Treatment Pending Test Test Name Order Date MAMMOGRAM; SCREENING, BILATERAL (72443) 06/17/2014 - BREAST RIO([facility]) 06/17/2014 Insurance Providers Payer Name Payer Address Payer Phone Subscriber Number Group Number Insured Name Patient Relationship to Insured Coverage Start Date Coverage End Date MEDICARE [place] PART [place] [address] [place], [place] [id number] Rxo Whitfield Self - patient is the insured [...]
--- OUTSIDE RECORDS SUMMARY | 2024-11-14 12:57 | XMS_ITS | Data Portability ---
Author Organization [place] - [facility], [employer] [facility] Address [address] [place] [address] Care Team Providers Care Film Laboratory Technician Name Role Phone MIRZA MASON Primary Care Provider [phone] Assessment No assessment recorded. Plan of Treatment [...] By Organization Details Last Modified Time 10/08/2024 [id number] nursing home goal of Blood Pressure 130/80 Not available Not available Not available nursing home goal of Hemoglobin A1C < 7% Not available Not available Not available long term care social worker goal of Glucose, Fasting < 130 Not available Not available Not available nursing home goal of Glucose, 2 Hour Postprandial < 180 Not available Not available Not available nursing home goal of LDL Direct < 70 mg/dL Not available Not available Not available 10/08/2024 [id number] Avoidance of hypoglycemia (any glucose <70) Glucose Test Frequency: QD Fasting [email or web address] Not available 10/08/2024 09:24:58 Patient Instructions Encounter Date Encounter Id Patient Instructions Last Modified By Organization Details Last Modified Time 09/30/2024 [id number] Pre-CallGustavo chandler Pre-call review started at 2024-09-30 11:58 EDT Glucometer Readings: Glucose 7-day fasting average: 107, non-fasting average: 101 Glucose 30-day fasting average: 112, non-fasting average: 118 Review Notes Most recent nurse notes were reviewed. Most recent provider notes were reviewed. Clinical TopicsAsync ReviewNo call was needed.Care Message The member was sent the following care message via [facility] after reviewing their chart: Hi this is [...] minutes. [email or web address] Not available 09/30/2024 12:00:39 10/08/2024 [id number] Ms. Whitfield is a(n ) 74 year [...] the [place]. Does the member have the [employer] denis downloaded? No, member declined Next [place] appointment is confirmed on 10/24/2024 between 02:00 PM and 03:00 PM Eastern Time. Was there a need during this visit to complete a Member Service Request? No. If yes, provide a summary of the request. [email or web address] Not available 10/08/2024 09:28:47 10/24/2024 [id number] The member is [facility] located in [place]. Pre-CallReview Readings Pre-call review started at 2024-10-24 [...] Confirmation The member is currently located in [place]. The member is willing and able to [...] minutes. [email or web address] Not available 10/24/2024 14:06:56 10/28/2024 [id number] Pre-CallReanne marie chandler Pre-call review started at [...] minutes. [email or web address] Not available 10/28/2024 13:49:58 10/31/2024 [id number] The member is cu rrently located in [place]. Pre-CallReview Readings Pre-call review started at 2024-10-31 [...] Confirmation The member is currently located in [place]. The member is willing and able to [...] Details Recorded Time Type 2 diabetes mellitus 47380949 Active 2022 KORTNEY Fay - [facility] 3 10:32:52 Essential hypertension 69326499 Active 2022 ANGELICA FarrarCharan SECRY null, [place] - [facility] 3 10:32:49 Osteoporosis 68628724 Active 2022 Kassandraemely Weston null, [place] - [facility] 3 13:23:41 Osteoarthritis 645031926 Active 2022 Kassandra Weston null, [place] - [facility] 3 13:23:50 Spinal stenosis 49272372 Active 2022 Kassandra Weston null, [place] - [facility] 3 13:24:00 Diabetes mellitus 91189490 Active 2022 ANGELICA DOMINGUEZ SECRY null, [place] - [facility] 3 15:35:53 Anxiety 52123126 Active 2024 Garfield Quinonez NP [address] , [place], [address], [place] [facility] 5 09:13:57 Pulmonary emphysema 40686728 Active 2024 Garfield Quinonez NP [address] , [place], [address], [place] [facility] 5 09:14:23 Coronary arterioscleros is 05719031 Active 2024 Garfield Quinonez NP [address] , [place], [address], [place] [facility] 5 09:16:09 Atrial fibrillation 15773827 Active 2024 Garfield Quinonez NP [address] , [place], [address], [place] [facility] 5 09:16:19 Depressive disorder 75128018 Active 2024 Garfield Quinonez NP [address] , [place], [address], [place] [facility] 5 09:16:44 Hyperlipidemia 72318964 Active 2024 Garfield Quinonez NP [address] , [place], [address], [facility] - [facility] 5 09:17:01 Postoperative hypothyroidism 21574686 Active 2024 Garfield Quinonez NP [address] , [place], [address], [facility] - [facility] 5 09:17:48 History of cerebrovascula r accident 620589693 Active 2024 Garfield Quinonez NP [address] , [place], [address], [facility] - [facility] 5 09:19:05 Problem Notes None recorded. Procedures Surgical History Date Name Laterality Status Provider Name and Address Organization Details Recorded Time [facility] 10:13:31 [facility]/13[facility]2023 10:13:58 [facility] 10:14:03 [facility]/13/[facility]23 10:14:08 bilateral cataract extraction completed Garfield Quinonez NP [address], [place], [address], [facility] 10/08/2024 09:19:37 Imaging Results None recorded. Procedure Notes None recorded. Medical Equipment None Reported. Allergies Allergen ID Allergen Name Allergen Category Reaction Reaction Severity Criticality Documentation Date Start Date Code Code System Note Provider Name and Address Organization Details Recorded Time Ceclor medicatio n Not available Not available Not available 03/13/202307524 5 RxNorm Burke More null, [place] - [facility] 3 10:13:01 codeine medicatio [...] Updated DateTime 10/08/2024 160.02 cm 29.6 kg/m2 54025.93 g Garfield Quinonez, ERROL [address], [place], [address], [facility] 10/08/2024 09:12:56 Social History Question Answer Notes LastModified by Organizat ion Details LastModified Time Tobacco Smoking Status Current Some Day Smoker Burke quezada, [facility] 03/13/2023 10:13:25 What Is Your Level Of Caffeine Consumption? Moderate [email or web address] Information not available 03/13/2023 How Much Tobacco Do You Smoke? 0.5 PPD [email or web address] Information not available 10/08/2024 Sex: Unknown Functional Status Question Answer Note LastModified by Organizat ion Details LastModified Time Do you use any illicit or recreational drugs? No [email or web address] Information not available 03/13/2023 Do you or have you ever used any other forms of tobacco or nicotine? No [email or web address] Information not available 03/13/2023 What is your level of alcohol consumption? None [email or web address] Information not available 03/13/2023 Mental Status None [...] SNOMED-CT Code Diagnosis ICD10 Code Diagnosis Note [id number] Char Rosales NP [facility] er Schedule [address] [place] [address] 03/13/2023 10:08:48 03/13/2023 10:44:44 Type 2 diabetes mellitus 10002933 E11.65 Essential hypertension 91874170 I10 425991 ERROL Hernandez_Lyndsey g Schedule [address] [place] [address] 03/22/2023 13:09:28 03/22/2023 13:55:50 Diabetes mellitus 98067683 E11.9 324952 ERROL Hernandez_Lyndsey g Schedule [address] [place] [address] 04/06/2023 16:03:28 04/12/2023 14:07:57 Diabetes mellitus 19650237 E11.9 243426 ERROL Hernandez_Nursin g Schedule [address] [place] [address] 06/04/2023 17:19:49 06/04/2023 17:37:56 Type 2 diabetes mellitus 98270173 E11.65 269487 ERROL HOWE_Nursin g Schedule [address] [place] [address] 06/18/2023 15:36:21 06/18/2023 15:53:52 Type 2 diabetes mellitus 46297441 E11.65 150827 ROCHELLE PINO NP [facility]Prov[facility] er Schedule [address] [place] [address] 06/26/2023 14:25:55 06/26/2023 14:49:00 Type 2 diabetes mellitus 42157110 E11.65 -Continue the following medication s as [...] vegetables /fruits, and high-fiber carbohydra te sources. 831670 ERROL HOWE_Nursin g Schedule [address] [place] [address] 07/16/2023 15:29:20 07/16/2023 15:47:24 Diabetes mellitus 02118288 E11.9 709315 ERROL HOWE_Nursin g Schedule [address] [place] [address] 07/30/2023 15:35:00 07/30/2023 15:43:26 Diabetes mellitus 48492967 E11.9 684902 ERROL HOWE_Nursin g Schedule [address] [place] [address] 08/14/2023 13:17:28 08/14/2023 13:25:01 745440 ROCHELLE PINO NP NS_Nursin g Schedule [address] [place] [address] 08/31/2023 13:59:10 08/31/2023 14:16:34 129806 ROCHELLE PINO NP NS[facility]Nursin g Schedule [address] [place] [address] 10/12/2023 13:52:07 10/12/2023 14:06:29 212789 ROCHELLE PINO NP [facility]Nursin g Schedule [address] [place] [address] 10/26/2023 13:34:59 10/26/2023 13:49:01 Diabetes mellitus 14503158 E11.9 832923 Garfield Quinonez NP NS[facility]Nursin g Schedule [address] [place] [address] 11/09/2023 15:07:52 11/09/2023 15:21:23 Type 2 diabetes mellitus 84990334 E11.65 328055 Garfield Quinonez NP NS[facility]Nursin g Schedule [address] [place] [address] 11/23/2023 14:00:07 11/23/2023 14:04:24 Type 2 diabetes mellitus 64861043 E11.65 920923 Garfield Quinonez NP NS[facility]Nursin g Schedule [address] [place] [address] 12/21/2023 11:30:27 12/21/2023 11:36:39 Type 2 diabetes mellitus 45188713 E11.65 513577 LOGAN COOPER NP NS_Nursin g Schedule [address] [place] [address] 02/15/2024 14:21:26 02/15/2024 14:29:13 Diabetes mellitus 88735846 E11.9 650250 Garfield Quinonez NP NS_Nursin g Schedule [address] [place] [address] 02/29/2024 14:14:51 02/29/2024 14:24:57 Essential hypertension 63259609 I10 429421 Garfield Quinonez NP NS_Nursin g Schedule [address] [place] [address] 03/14/2024 14:21:25 03/14/2024 14:35:03 Diabetes mellitus 60011042 E11.9 091636 Garfield Quinonez NP NS_Nursin g Schedule [address] [place] [address] 03/28/2024 14:35:21 03/28/2024 14:51:24 Diabetes mellitus 22074382 E11.9 Diabetes mellitus Type 2 serafin betes mellitus 99024264 E11.65 Type 2 diabetes mellitus Essential hypertension 62315312 I10 Essential hypertensi on 717489 Garfield Quinonez NP NS_Nursin g Schedule [address] [place] [address] 04/11/2024 14:25:02 04/11/2024 14:30:26 Type 2 diabetes mellitus 03864606 E11.65 Type 2 diabetes mellitus 505389 Garfield Quinonez NP NS_Nursin g Schedule [address] [place] [address] 04/15/2024 15:09:24 04/15/2024 15:13:52 Diabetes mellitus 99822375 E11.9 Diabetes mellitus Type 2 serafin betes mellitus 19044777 E11.65 Type 2 diabetes mellitus Essential hypertension 75023035 I10 Essential hypertensi on 625121 Garfield Quinonez NP NS_Nursin g Schedule [address] [place] [address] 04/25/2024 14:18:17 04/25/2024 14:33:54 Type 2 diabetes mellitus 71233928 E11.65 Type 2 diabetes mellitus 070951 Garfield Quinonez NP NS_Nursin g Schedule [address] [place] [address] 05/09/2024 14:50:04 05/09/2024 15:06:31 Diabetes mellitus 70441831 E11.9 Diabetes mellitus 701990 Garfield Quinonez NP NS_Nursin g Schedule [address] [place] [address] 05/23/2024 14:11:17 05/23/2024 14:19:40 Type 2 diabetes mellitus 02518295 E11.65 Type 2 diabetes mellitus 814975 Garfield Quinonez NP NS_Nursin g Schedule [address] [place] [address] 06/06/2024 14:30:40 06/06/2024 14:55:25 Diabetes mellitus 72797310 E11.9 Diabetes mellitus Type 2 serafin betes mellitus 30014383 E11.65 Type 2 diabetes mellitus Essential hypertension 64438021 I10 Essential hypertensi on 982664 Garfield Quinonez NP NS_Nursin g Schedule [address] [place] [address] 06/20/2024 14:32:39 06/20/2024 14:47:15 Type 2 diabetes mellitus 15935029 E11.65 Type 2 diabetes mellitus 559900 Garfield Quinonez NP NS_Nursin g Schedule [address] [place] [address] 07/04/2024 14:16:09 07/04/2024 14:33:03 Type 2 diabetes mellitus 53896958 E11.65 Type 2 diabetes mellitus 524771 Garfield Quinonez NP NS_Nursin g Schedule [address] [place] [address] 07/18/2024 14:05:13 07/18/2024 14:10:56 Type 2 diabetes mellitus 69616003 E11.65 Type 2 diabetes mellitus 331431 Garfield Quinonez NP NS_Nursin g Schedule [address] [place] [address] 08/01/2024 14:35:03 08/01/2024 14:39:26 Type 2 diabetes mellitus 65355032 E11.65 Type 2 diabetes mellitus 968328 Garfield Quinonez NP NS_Nursin g Schedule [address] [place] [address] 08/15/2024 14:26:22 08/15/2024 14:42:23 Type 2 diabetes mellitus 66355480 E11.65 Type 2 diabetes mellitus 613954 Garfield Quinonez NP NS_Nursin g Schedule [address] [place] [address] 08/29/2024 14:34:14 08/29/2024 14:52:41 Diabetes mellitus 40537569 E11.9 Diabetes mellitus 563870 Garfield Quinonez NP NS_Nursin g Schedule [address] [place] [address] 08/29/2024 16:25:25 08/29/2024 16:44:57 Diabetes mellitus 88163477 E11.9 Diabetes mellitus Type 2 serafin betes mellitus 57200725 E11.65 Type 2 diabetes mellitus Essential hypertension 45605811 I10 Essential hypertensi on 721918 Garfield Quinonez NP NS_Nursin g Schedule [address] [place] [address] 09/01/2024 15:45:13 09/01/2024 15:50:55 Diabetes mellitus 70459417 E11.9 Diabetes mellitus 158906 Garfield Quinonez NP NS_Nursin g Schedule [address] [place] [address] 09/12/2024 14:30:22 09/12/2024 14:48:17 Type 2 diabetes mellitus 80878220 E11.65 Type 2 diabetes mellitus 230872 Garfield Quinonez NP NS_Nursin g Schedule [address] [place] [address] 09/26/2024 14:24:11 09/26/2024 14:42:18 Type 2 diabetes mellitus 11164716 E11.65 Type 2 diabetes mellitus 773599 Grafield Quinonez NP NS_Nursin g Schedule [address] [place] [address] 09/30/2024 11:58:12 09/30/2024 12:00:40 Type 2 diabetes mellitus 36189114 E11.65 Type 2 diabetes mellitus 172320 Garfield Quinonez NP PS_Provid er Schedule [address] [place] [address] 10/08/2024 09:10:56 10/08/2024 09:29:13 Type 2 diabetes mellitus 16212004 E11.65 Diabetes Ongoing Care Plan -Continue RPM [...] intake and water's role in decreasing glucose. 488484 ERROL Wells_Nursin g Schedule [address] [place] [address] 10/24/2024 13:53:25 10/24/2024 14:06:56 Type 2 diabetes mellitus 15150023 E11.65 Type 2 diabetes mellitus 533729 ERROL Wells_Nursin g Schedule [address] [place] [address] 10/28/2024 13:48:53 10/28/2024 13:49:59 Diabetes mellitus 11140269 E11.9 Diabetes mellitus Type 2 serafin betes mellitus 65552192 E11.65 Type 2 diabetes mellitus Essential hypertension 61127935 I10 Essential hypertensi on 412435 ERROL Wells_Nursin g Schedule [address] [place] [address] 10/31/2024 13:00:16 10/31/2024 13:20:54 Diabetes mellitus 88463322 E11.9 Diabetes mellitus Type 2 serafin betes mellitus 41299618 E11.65 Type 2 diabetes mellitus Essential hypertension 78169911 I10 Essential hypertensi on Goals Section Goal [...] Member ID Gallardo Member ID Guarantor Name 11/11/2024 1 [employer] (MEDICARE REPLACEMENT/ADVA NTAGE - PPO) Rox Whitfield [id number] Rox Whitfield 03/14/2024 1 [facility] [employer] (MEDICARE REPLACEMENT/ADVA NTAGE - HMO) [id number] Rox Whitfield [id number] Rox Whitfield Notes Date Note Type [...] is located in at time of call: [place] - Patient Location at time of visit: Home If location today is outside the state in [place] home address, has patient moved?N/AIf patient has moved, was address updated in [facility]?N/A Recent illnesses or hospitalizations: . Diet:Low Carb, [...] Quinonez, ERROL [address], [place], [address], [facility] 10/08/2024 09:28:49 OBGyn Episode No OBEpisode recorded.
--- OUTSIDE RECORDS SUMMARY | 2024-11-14 12:57 | XMS_ITS | Data Portability ---
Author Organization [facility] SHELLI Sanz CRESBARD CLOSED Address [address] [place] [address] Care Team Providers Care Barrel Filler Head Name Role Phone GERTRUDE BARTON Primary Care Provider KARLA PRADO Referring Provider [phone] Assessment Encounter Date Assessment Date Assessment LastModified [...] a repeat MRI cervical spine within the [facility] system see if a better determination of the true degree of foraminal stenosis can be determined. I will trial her on Flexeril for her neck pain. Lastly, I will refer her to pain management for a right C5-6 TFESI determine if she notes any improvement in her shoulder pain with this injection. We will see her back after completion of the above. [email or web address] Not available 02/27/2023 16:09:52 03/12/2023 03/12/2023 This [...] cervical transforami nal (PROC) 2022 023 [id number] [facility]es, [address], [place], [address], 12:08:09 Surgeries None recorded. Imaging None recorded. Medication Orders None recorded. Patient TargetsNo targets recorded. Patient Instructions Encounter Date Encounter Id Patient Instructions Last Modified By Organization Details Last Modified Time 03/12/2023 [id number] cardiac clearance* - Requesting clearance to hold [...] No observ ation record ed. [facility] Radiology [facility] [address] [place], [address], 02/28/2023 10:37:34 Result Notes None recorded. Procedures Surgical History Date Name Laterality Status Provider Name and Address Organization Details Recorded Time 05/07/19 05 Thyroid Surgery completed [facility][note 3] 02/27/2023 13:05:06 05/07/18 90 Appendectomy completed [facility][note 3] 02/27/2023 13:05:15 Cholecystectomy completed [facility][note 3] 02/27/2023 13:05:33 hysterectomy completed [facility][note 3] 02/27/2023 13:05:41 Imaging Results None recorded. Procedure Notes None recorded. Medical Equipment None Reported. Allergies Allergen ID Allergen Name Allergen Category Reaction Reaction Severity Criticality Documentation Date Start Date Code Code System Note Provider Name and Address Organization Details Recorded Time 235866 Ceclor medicatio n Not available Not available Not available 02/27/202356248 5 RxNorm [facility] 13:03:47 317907 codeine medicatio n Not available Not available Not available 02/27/2023 2670 RxNorm [facility] 13:03:53 Medications Name Sig Start Date Stop [...] Updated DateTime 02/27/2023 170.18 cm 24.6 kg/m2 00800 g 134/80 mm[Hg] Coco Castro [facility] 02/27/2023 13:03:36 Date Recorded Body height Body mass index (BMI) Body weight Body temperature Systolic And Diastolic Provider Name and Address Organization Details Last Updated DateTime 03/12/2023 170.18 cm 25.1 kg/m2 12684.7 8 g 98.6 [degF] 126/80 mm[Hg] Pippa Buckner [facility] 11:37:19 Social History Question Answer Notes LastModified by Organizat ion Details LastModified Time Tobacco Smoking Status Current Every Day Smoker 1/2 PACKS A DAY [facility] 02/27/2023 13:04:52 How Much Tobacco Do You [...] SNOMED-CT Code Diagnosis ICD10 Code Diagnosis Note [id number] PAT HUGGINS MD [facility] CL[facility] [address] [place] [address] 02/27/2023 12:40:39 02/28/2023 05:08:36 Cervical spondylosis 963248326 M47.812 [id number] NAY SHAH MD [facility] CLOSED [address] [place] [address] 03/12/2023 10:56:31 03/13/2023 05:07:36 Cervical radiculopathy 76150327 M54.12 Degenerati on of cervical intervertebral disc 23551408 M50.30 Cervical spondylosis 387 320406 M47.812 Health Concerns Section Related Observation LastModified [...] PLUS (MEDICARE REPLACEMENT HMO) [id number] Rox Whitfield [id number] Rox Whitfield Notes Date Note Type [...] that demonstrate more stenosis. PAT HUGGINS MD [address] [place] [address], [address], [facility] 02/27/2023 16:10:03 03/12/2023 text/html Pain Management C-spine [...] Previous Surgerynone Previous Injections:none Previous PT:none Previous childcare center director:none NAY SHAH MD [address] [place] [address], [address], [facility] 03/12/2023 11:58:34 OBGyn Episode No OBEpisode recorded.
--- OUTSIDE RECORDS SUMMARY | 2024-11-14 12:57 | XMS_ITS | Patient Health Record ---
Author Organization [facility] Address [address] [place] [address] Support Name Relationship Address Phone MAY CROUCH Guarantor Unknown [phone] Reason For Referral No Information Plan Of Treatment No Information Insurance Providers Payer Name Payer Address Payer Phone Subscriber Number Group Number Insured Name Patient Relationship to Insured Coverage Start Date Coverage End Date [employer] [address] [address] [place] [address] [phone] [id number] MAY CROUCH Self - patient is the insured
--- NOTE | 2024-11-14 13:00 | MM_ITS ---
PROCEDURE INFORMATION: Exam: Bilateral Screening 3D Mammography Exam date and time: 11/14/2024 1:02 PM Age: 74 years old Clinical indication: Screening examination TECHNIQUE: Imaging protocol: Bilateral Screening tomosynthesis and 2D mammography including computer-aided detection (CAD) when performed. COMPARISON: [facility] MAMMO W/CAD BILAT 10/28/2021 2:38 PM FINDINGS: MAMMOGRAPHY: Breast composition: There are scattered areas of fibroglandular density. Mass: None. Architectural distortion: None. Calcifications: No suspicious calcifications. Asymmetric density: None. Skin thickening: None. Axillary adenopathy: None. IMPRESSION: No mammographic evidence of malignancy. Annual screening is recommended unless otherwise clinically indicated. ASSESSMENT: BI-RADS Category 1: Negative.
--- NOTE | 2024-11-14 13:30 | CT_ITS ---
FINAL REPORT CLINICAL HISTORY: lung cancer screening current smoker 1/2ppd x56 years, emphysema COMPARISON: 08/24/2023 FINDINGS: CT CHEST LOW DOSE SCREENING HISTORY: Screening exam for lung cancer. DOSE: CTDI vol: 2.90 mGy, DLP: 98.73 mGy*cm TECHNIQUE: Axial CT without IV contrast administration using low dose protocol. This study was performed with techniques to keep radiation doses as low as reasonably achievable, (ALARA). Individualized dose reduction techniques using automated exposure control or adjustment of mA and/or kV according to the patient's size were employed. No acute lung disease is present. There is a 3 mm nodule with probable central calcifications in the right upper lobe on image 33 of series 4. Finding is stable since prior and considered a granuloma. No pulmonary lesions are seen suspicious for neoplasm. No pleural or pericardial effusion is seen. No adenopathy or mass lesion is present. IMPRESSION: No evidence of lung cancer LUNG RADS CATEGORY 1 RECOMMENDATION: 12 month LDCT follow up Reviewed, Interpreted and Dictated by Lucy Stanford MD Transcribed by Pily Izaguirre Authenticated and [facility]
== END 2024-11-14 23:59 | disposition home or self-care (01) ==
LOC: RAD 12:52
PROVIDERS: PCP Family Medicine; Visit Provider Family Medicine
DX: Z12.31 Encounter for screening mammogram for malignant neoplasm of breast (principal); R92.323 Mammographic fibroglandular density, bilateral breasts; Z12.2 Encounter for screening for malignant neoplasm of respiratory organs; F17.210 Nicotine dependence, cigarettes, uncomplicated
CPT/HCPCS: 71271; 77063; 77067

== ENCOUNTER 2024-12-04 16:18 | Outpatient (CLI) | payer MEDICARE, SELFPAY ==
--- OUTSIDE RECORDS SUMMARY | 2015-12-13 10:52 | XMS_ITS | Continuity of Care Document ---
Author Organization [facility] Address [address] [place] [phone] Phone Care Team Providers Care Clearance Representative Name Role Phone Natty CASTILLO, Gentry Unavailable [...] as directed. - Active 09/15/15 & 09/29/15 [id number] RxID: [id number] Durezol 0.05 % eye drops Use BID as directed. May sub Lotemax Gel 0.5%, 5 ml. Use QID as directed. May sub Prednisolone Acetate 1%, 10 ml. Use QID as directed. - Active 09/15/15 & 09/29/15 [id number] Ocuflox 0.3 % eye drops Use QID as directed. - Active 6 & 09/29/15 [id number] gabapentin 600 mg tablet take 1 tablet [...] [place], LASER POSTOP FOLLOW-UP VISIT EYE EXAM, [facility] Doc meds verified w/pt or re TOBACCO NON-USER OPHTHALMIC BIOMETRY Advance Directives Directive Yes / No Effective Date File Name No Information Encounters Encounter Description Practice Location Reason(s) For Visit Diagnoses Date Provider Providers Copied on Encounter [facility], [address] [place] [address], [address] [place] [address], [phone] [facility] [place] No Information 6 Natty Rinaldi. [address] [place] [address], [id number] , . tel:[phone] [facility], [address] [place] [address], [id number], [phone] [facility] No Information 6 Natty Rinaldi. [address] [place] [address], [id number] , . tel:[phone] Referring Provider: Mohsen Maria, [address] [place] [address], [id number] . tel:[phone] [facility], [address] [place] [address], [id number], tel:[phone] [facility] [place] Cataract eval (chief complaint) Combined Cat OD 6 Giovani Briseno. [address] [place] [address], [id number] , . [phone] Referring Provider: Mohsen Maria, [address] [place] [address], [id number] . tel:[phone] [facility], [address] [place] [address], [id number], tel:[phone] [facility] No Information 6 Natty Edankit. [address] [place] [address], [id number] , . tel:[phone] Referring Provider: Gentry Travis, [address] [place] [address], [id number] . tel:[phone] Mohsen [facility], [address] [place] [address], [id number], tel:[phone] [facility] No Information 6 Natty Rinaldi. [address] [place] [address], [id number] , . tel:[phone] Referring Provider: Mohsen Maria, [address] [place] [address], [id number] . tel:[phone] Mohsen Danny [facility], [address] [place] [address], [id number], tel:[phone] [facility] [place] decreased vision (chief complaint) Combined Cat OS 6 Giovani Briseno. [address] [place] [address], [id number] , . tel:[phone] Referring Provider: Mohsen Maria, [address] [place] [address], [id number] . tel:[phone] Mohsen [facility], [address] [place] [address], [id number], tel:[phone] [facility] Blurred vision (chief complaint) Combined Cat OUCombined Cat OS 6 Natty Rinaldi. [address] [place] [address], [id number] , [place]. tel:[phone] Referring Provider: Mohsen Maria, [address] [place] [address], [address] . tel:[phone] Mohsen Delgado [facility], [address] [place] [address], [id number], tel:[phone] [facility] No Information 6 Natty Gentry. [address] [place] [address], [id number] , [place]. tel:[phone] Referring Provider: Gentry Travis, [address] [place] [address], [address] . tel:[phone] Family History Family Member Type Diagnosis Age At Onset Sister Problem (finding) Cancer, unknown Mother Problem (finding) diabetes melli tus in first degree relative Immunizations Vaccine Date Status Comments Zoster administered Source: Other P rovider Pneumo (2 yrs or older)(PPV) administered Source: Other Provider Payers Payer name Insurance type Covered green party ID Authoriza tion(s) [place] [id number] Social History Type Description Quantity Date Captured [...] instructions. Call with any questions or concerns.Scribe: [id number]/H25.811/COMB CAT COD/IOL STD W/AK LASER TARGET PLANO [...] IOL. Call with any questions and concerns. [id number]/H25.812/COMB CAT COS/IOL STD w/AK LASER TARGET PLANO [...] have surgery, recommend phacoemulsification with intraocular lens. 49902/H25.812/COMB CATCOS/IOLSTD +/- [place] LASERTARGET PLANO OUTOPICAL/VISCOATIOL MASTER DONE, PENTACAM NEEDEDPOC SABRINA,O,[id number]: BB PERF CORNEAL SCAR ODCOD 75486/H25.811-If you choose the standard implant and have your astigmatism fixed you will have improved distance vision and will need readers.-If you choose the Standard implant you will need timekeeper glasses if you do not have your [...]
--- NOTE | 2024-12-04 16:21 | XR_ITS ---
PROCEDURE INFORMATION: Exam: XR Left Ribs Exam date and time: 12/04/2024 4:28 PM Age: 74 years old Clinical indication: Injury or trauma; Fall; Rib area, left side; Blunt trauma; Injury details: Pain, postero-lateral TECHNIQUE: Imaging protocol: Radiologic exam of the left ribs. Views: 2 views. COMPARISON: CT ANGIO CHEST PE PROTOCOL 04/24/2023 3:31 PM FINDINGS: Bones/joints: Normal. Soft tissues: Normal. IMPRESSION: No acute findings.
--- OUTSIDE RECORDS SUMMARY | 2024-12-04 16:22 | XMS_ITS | Clinical Summary ---
Author Organization [facility] Address [address] [place] [address] Care Team Providers Care Garment Steamer Name Role Phone Meghan Goldberg MD Primary Care Provider [phone] Allergies Active Allergy Reactions Criticality Noted Date Comments Cefaclor Rash Low 02/28/2021 Codeine Nausea And Vomiting 02/28/2021 Morphine Nausea And Vomiting 02/28/2021 Medications HYDROcodone-acet aminophen (NORCO) 5-325 MG per tabletIndication s:Bacterial UTI Take 1 tablet by mouth Every 6 (Six) Hours As Needed for Severe Pain . 10 tablet 02/28/2021 Active Social History Tobacco Use Types Packs/Day Years Used Date Smoking Tobacco: Every Day Cigarettes Smokeless Tobacco: Never Alcohol Use Standard Drinks/Week Comments Never 0 (1 standard drink = 0.6 oz pur e alcohol) Abuse Screen Answer Date Recorded Unsafe at Home or Work/School Not on file Feels Threatened by Someone? Not on file 04/2023 Does Anyone Keep You from Co ntacting Others or Doint Things Outside the Home? Not on file 02/15/2023 Physical Sign of Abuse Present Not on file 1 Housing Stability Answer Date Recorded Current Living Arrangements Not on file 02/04 Potentially Unsafe Housing Conditions Not on loyd e 02/15/2023 Family and Community Support Answer Myke e Recorded Help with Day-to-Day Activities Not on file 02/15/2023 Lonely or Isolated Not on file 02/15/2023 Employment Answer Date Recorded Do you want help finding or keeping work or a dangelo b? Not on file 02/15/2023 Disabilities Answer Date Recorded Concentrating, Remembering, or Making Decisions Difficulty Not on file 02/15/2023 Doing Errands Independently Difficulty Not on fi le 02/15/2023 Education Answer Date Recorded Help with school or training? Not on file Preferred Language Not on file 02/15/2023 Comments Unknown Sex and Gender Information Value Date Recorded Sex Assigned at Not on file Legal Sex Female 6:00 PM EDT Gender Identity Not on file Sexual Orientation Not on file Last Filed Vital Signs Vital Sign Reading Time Taken Comments Blood Pressure 124/69 02/28/2021 3:11 PM EDT Pulse 87 02/28/2021 3:11 PM EDT Temperature 36.7 C (98.1 F) 02/28/2021 3:11 PM EDT Respiratory Rate 16 02/28/2021 3:11 PM EDT Oxygen Saturation 100% 02/28/2021 3:11 PM EDT Inhaled Oxygen Concentration - - Weight 72.6 kg (160 lb) 02/28/2021 10:58 AM EDT Height 170.2 cm (5' 7 ) 02/28/2021 10:58 AM EDT Body Mass Index 25.06 02/28/2021 10:58 AM EDT Plan of Treatment Health Maintenance Due Date Last Done Comments DXA SCAN 1948 TDAP/TD VACCINES (1 - Tdap) 08/01/1967 Pneumococcal Vaccine 50+ (1 of 1 - PCV) 1998 ZOSTER VACCINE (1 of 2) 1998 ANNUAL PHYSICAL 12/02/2020 HEPATITIS C SCREENING 12/02/2020 RSV Vaccine - Adults (1 - 1-dose 75+ series) COVID-19 Vaccine (2 - season) 2024 INFLUENZA VACCINE 02/04/2025 Insurance MEDICARE A & B [facility] MEDICARE REPLACEMENT Care Teams Garment Steamer Relationship Specialty Start Date End Date Meghan Goldberg MD PCP - General Family Medicine 02/28/21
--- OUTSIDE RECORDS SUMMARY | 2024-12-04 16:22 | XMS_ITS | Encounter Summary ---
Author Organization Healthcare Address [address] [place] [address] Care Team Providers Care Campaign Marketing Specialist Name Role Phone Darrell Lane MD Primary Care Provider [phone] Reason for Visit * Reason Onset Date Comments HCN Clinical Concern/Question 10/20/2024 Encounter Details Date Type Department Care Team (Late st Contact Info) Description 10/20/2024 Telephone [facility] [address], [address] [place] [address] Tara Lizarraga MD [address] [place] [address] HCN Clinical Concern/Question Social History [...] back. Request routed to both Clinical and bowling or skating front desk clerk staffper previous note for scheduling./aft Best contact number and optimal time of day to reach caller: Patient can be reached at [phone] Note: Please do not reply to this [...] Info) Description 02/18/2025 3:00 PM EDT Consult [facility] Urology [address], [address] [place] [address] Tara Lizarraga MD [address] [place] [address] documented as of this encounter Visit Diagnoses Not on filedocumented in this encounter Care Teams Campaign Marketing Specialist Relationship Specialty Start Date End Date Darrell Lane MD [address] [place] [address] PCP - General 10/15/24 documented as of this encounter
--- OUTSIDE RECORDS SUMMARY | 2024-12-04 16:22 | XMS_ITS | Encounter Summary ---
Author Organization Healthcare Address [address] [place] [address] Care Team Providers Care Mine Inspector Name Role Phone Darrell Lane MD Primary Care Provider [phone] Reason for Visit * Reason Onset Date Comments HCN Clinical Concern/Question 10/16/2024 Encounter Details Date Type Department Care Team (Late st Contact Info) Description 10/16/2024 Telephone [place] [facility] [address] [place] [address] Yissel Preciado, OCCUPATIONAL HEALTH AND SAFETY OFFICER, DNP [address] [place] [address] HCN Clinical Concern/Question Social History [...] seen by Dr. Lizarraga. Best contact number: [phone] (home) Optimal time of day to reach caller: ANYTIME Additional comments/information from caller: None Note: Please do not reply to this message. Follow-up communication and further actions as a result of this message need to be communicated with the patient directly, if the patient is not active onMyChart. If the patient is active on MyChart, they will receive notification of the communication/outcome via [employer]. documented in this encounter Plan of Treatment Upcoming Encounters Date Type Department Care Team (Late st Contact Info) Description 02/18/2025 3:00 PM EDT Consult [facility] Urology [address] [place] [address] Tara Lizarraga MD [address] [place] [address] documented as of this encounter Visit Diagnoses Not on filedocumented in this encounter Care Teams Mine Inspector Relationship Specialty Start Date End Date Darrell Lane MD [address] [place] [address] PCP - General 10/15/24 documented as of this encounter
--- OUTSIDE RECORDS SUMMARY | 2024-12-04 16:23 | XMS_ITS | Clinical Summary ---
Author Organization [facility] Address [address] [place] [address] Care Team Providers Care Continuous Pickling Line Pickler Name Role Phone Darrell Lane MD Primary Care Provider [phone] Encounters Date Type Department Care Team Description 10/20/[address] [facility] Urology [address] [place] [address] Tara Lizarraga MD HCN Clinical Concern/Question 10/16/[address] [facility] Urology [address] [place] [address] Yissel Preciado APRN, DNP HCN [...] Info) Description 02/18/2025 3:[address] [facility] Urology [address] [place] [address] Tara Lizarraga MD [address] [place] [address] Health Maintenance Due Date Last Done Comments [facility]-Bone Density Scan 1950 [facility]-Depression Screening 1948 [facility]-Hepatitis C Screening 1948 [facility]-Medicare Annual Wellness (AWV) 1948 [facility]-Infant/Child/Adol SDOH Screenings 1948 [facility]- SDOH Screenings 1966 [facility]-Adult SDOH Screenings 1966 [facility]-DTaP,Tdap,and Td Vaccines (1 - Tdap) 08/01/1967 [facility]-RSV Vaccine: 60+ Years or (1 - 1-dose 75+ series) 08/01/2023 [id number] Vaccine (3 - season) 2024 11/26/2021, 08/30/2020 [...] patient's age to complete this topic Insurance [facility] MEDICARE Care Teams Continuous Pickling Line Pickler Relationship Specialty Start Date End Date Darrell Lane MD [address] [place] [address] PCP - General 10/15/24
== END 2024-12-04 23:59 | disposition home or self-care (01) ==
LOC: RAD 16:19
PROVIDERS: PCP Family Medicine; Visit Provider Family Medicine
DX: R07.81 Pleurodynia (principal); N39.0 Urinary tract infection, site not specified
CPT/HCPCS: 71100; 87086; 87088; 87186

== ENCOUNTER 2024-12-15 14:55 | Outpatient (CLI) | payer MEDICARE, SELFPAY ==
[2024-12-15 19:50] LABS: Hematocrit 32.4 % (37.0-47.0); Hemoglobin 10.7 g/dL (12.2-16.2); Immature Granulocytes % 0 %; Mean Corpuscular HGB Conc 33.0 g/dL (31.8-35.4); Mean Corpuscular Hemoglobin 31.1 pg (27.0-31.2); Mean Corpuscular Volume 94.2 fl (81-99); Nucleated Red Blood Cells % 0 %; Platelet Count 306 K/mm3 (142-424); Red Blood Count 3.44 M/mm3 (4.20-5.40); Red Cell Distribution Width-SD 45.4 fL; White Blood Count 5.1 K/mm3 (4.8-10.8)
[2024-12-15 21:12] LABS: Vitamin B12 856 pg/mL (239-931)
[2024-12-15 21:15] LABS: Ferritin 119 ng/ml (11.1-264); Iron 55 ug/dL (37-170); Total Iron Binding Capacity 310 ug/dL (265-497)
[2024-12-15 21:29] LABS: Folate > 20.00 ng/mL
--- OUTSIDE RECORDS SUMMARY | 2024-12-16 13:34 | XMS_ITS | Clinical Summary ---
Author Organization [facility] Address [address] [place] [address] Care Team Providers Care Excellence Coach Name Role Phone Darrell Lane MD Primary Care Provider [phone]- [phone] Encounters Date Type Department Care Team Description 10/20/[address] [facility] Urology [address], [address] [place] [address] Tara Lizarraga MD HCN Clinical Concern/Question 10/16/[address] [facility] Urology [address], [address] [place] [address] Yissel Preciado APRN, DNP HCN [...] 02/18/2025 3:[address] [facility] Urology [address] [place] [address] Tara Lizarraga MD [address] [place] [address] Health Maintenance Due Date Last Done Comments [facility]-Bone Density Scan 1948 [facility]-Depression Screening 1948 [facility]-Hepatitis C Screening 1948 [facility]-Medicare Annual Wellness (AWV) 1948 [facility]-/Child/Adol SDOH Screenings 1948 [facility]- SDOH Screenings 1966 [facility]-Adult SDOH Screenings 1966 [facility]-DTaP,Tdap,and Td Vaccines (1 - Tdap) 08/01/1967 [facility]-RSV Vaccine: 60+ Years or (1 - 1-dose 75+ series) 08/01/2023 [id number] Vaccine (3 - season) 2024 11/26/2021, 08/30/2020 [...] patient's age to complete this topic Insurance [facility] MEDICARE Care Teams Excellence Coach Relationship Specialty Start Date End Date Darrell Lane MD [address] [place] [address] PCP - General 10/15/24
--- OUTSIDE RECORDS SUMMARY | 2024-12-16 13:34 | XMS_ITS | Encounter Summary ---
Author Organization Healthcare Address [address] [place] [address] Care Team Providers Care Engagement Lead Name Role Phone Darrell Lane MD Primary Care Provider +1- [phone] Reason for Visit * Reason Onset Date Comments HCN Clinical Concern/Question 10/16/2024 Encounter Details Date Type Department Care Team (Late st Contact Info) Description 10/16/2024 Telephone [place] [facility] [address] [place] [address] Yissel Preciado, COMMERCIAL ENERGY RATER, DNP [address] [place] [address] HCN Clinical Concern/Question Social History [...] seen by Dr. Lizarraga. Best contact number: [phone] (home) Optimal time of day to reach caller: ANYTIME Additional comments/information from caller: None Note: Please do not reply to this message. Follow-up communication and further actions as a result of this message need to be communicated with the patient directly, if the patient is not active onMyChart. If the patient is active on MyChart, they will receive notification of the communication/outcome via [employer]. documented in this encounter Plan of Treatment Upcoming Encounters Date Type Department Care Team (Late st Contact Info) Description 02/18/2025 3:00 PM EDT Consult [facility] Urology [address] [place] [address] Tara Lizarraga MD [address] [place] [address] documented as of this encounter Visit Diagnoses Not on filedocumented in this encounter Care Teams Engagement Lead Relationship Specialty Start Date End Date Darrell Lane MD [address] [place] [address] PCP - General 10/15/24 documented as of this encounter
--- OUTSIDE RECORDS SUMMARY | 2024-12-16 13:34 | XMS_ITS | Clinical Summary ---
Author Organization [facility] Address [address] [place] [address] Care Team Providers Care Chemic Mangler Name Role Phone Meghan Goldberg MD Primary Care Provider [phone] Allergies Active Allergy Reactions Criticality Noted Date [...] VACCINE 02/04/2025 Insurance MEDICARE A & B [facility] MEDICARE REPLACEMENT Care Teams Chemic Mangler Relationship Specialty Start Date End Date Meghan Goldberg MD PCP - General Family Medicine 02/28/21
--- OUTSIDE RECORDS SUMMARY | 2024-12-16 13:34 | XMS_ITS | Encounter Summary ---
Author Organization Healthcare Address [address] [place] [address] Care Team Providers Care Kiln Hand Name Role Phone Darrell Lane MD Primary Care Provider [phone]- [phone] Reason for Visit * Reason Onset Date Comments HCN Clinical Concern/Question 10/20/2024 Encounter Details Date Type Department Care Team (Late st Contact Info) Description 10/20/2024 Telephone [place] [facility] [address] [place] [address] Tara Lizarraga MD [address] [place] [address] HCN Clinical Concern/Question Social History [...] back. Request routed to both Clinical and desk director staffper previous note for scheduling./aft Best contact number and optimal time of day to reach caller: Patient can be reached at [phone] Note: Please do not reply to this [...] Info) Description 02/18/2025 3:00 PM EDT Consult [facility]rology [address] [place] [address] Tara Lizarraga MD [address] [place] [address] documented as of this encounter Visit Diagnoses Not on filedocumented in this encounter Care Teams Kiln Hand Relationship Specialty Start Date End Date Darrell Lane MD [address] [place] [address] PCP - General 10/15/24 documented as of this encounter
--- OUTSIDE RECORDS SUMMARY | 2024-12-16 13:34 | XMS_ITS | Patient Health Record ---
Author Organization [facility] Address [address] [place] [address] Support Name Relationship Address Phone MAY CROUCH Guarantor Unknown [phone] Reason For Referral No Information Plan Of Treatment No Information Insurance Providers Payer Name Payer Address Payer Phone Subscriber Number Group Number Insured Name Patient Relationship to Insured Coverage Start Date Coverage End Date [employer] MEDICARE [address] [address] [place] [address] [id number] MAY CROUCH Self - patient is the insured
--- OUTSIDE RECORDS SUMMARY | 2024-12-16 13:34 | XMS_ITS | Patient Health Record ---
Author Organization [facility] Address [address] [place] [address] Care Team Providers Care Trimmer Loader Name Role Phone NAUN OLIVARES Unavailable [phone] Allergies Allergen (clinical drug ingredient) Drug/Non Drug [...] W/U Status Risk Notes Problem Fatty liver (191488037) Fatty liver (K76.0) Active confirmed Problem Constipation by delayed colonic transit (27113443) Constipation by delayed colonic transit (K59.01) Active confirmed Plan Of Treatment Pending Test Test Name Order Date Ultrasound : Liver (96431) 10/04/2017 Future Test Test Name Order Date CBC (H/H, RBC, INDICES, WBC, PLT) (1759) 10/05/2017 ALPHA FETOPROTEIN, TUMOR MARKER 10/06/19 18 HEMOGLOBIN A1c. (496) 10/05/2017 PROTHROMBIN TIME-INR (Quest Test Code: 8 847) 10/05/2017 Liver Fibrosis, FibroTest-ActiTest Panel (08142) 10/05/2017 Insurance Providers Payer Name Payer Address Payer Phone Subscriber Number Group Number Insured Name Patient Relationship to Insured Coverage Start Date Coverage End Date [facility] [address] [place] [address] [id number] Rox Whitfield Self - patient is the insured 8 Medical (General) History Medical History History ICD Code Hypothyroidism depression pancreatitis Surgical History Surgery Date(Month/Year) cholecystectomy hysterectomy thyroid
--- OUTSIDE RECORDS SUMMARY | 2024-12-16 13:34 | XMS_ITS | Patient Health Record ---
Author Organization [facility] Billing Info Address [address] [place], [place] [address] [place] [address] Care Team Providers Care Oil Refinery Operator Name Role Phone MARIA CBEE Primary Care [...] Problem Status W/U Status Risk Notes Problem 567506080 Anxious depression (F41.8) Active confirmed Problem 806180501 Chronic pain disorder (G89.4) Active confirmed Problem 89533616 Osteoarthritis, chronic (M19.90) Active confirmed Problem 56414245 Hypothyroidism, iatrogenic (E03.2) Active confirmed Problem 087916414 Insomnia, unspecified type (G47.00) Active confirmed Plan Of Treatment Pending Test Test Name Order Date MAMMOGRAM; SCREENING, BILATERAL (40308) 06/17/2014 - BREAST RIO([facility]) 06/17/2014 Insurance Providers Payer Name Payer Address Payer Phone Subscriber Number Group Number Insured Name Patient Relationship to Insured Coverage Start Date Coverage End Date MEDICARE [place] PART B [address] [place], [place] [id number] Rox Whitfield Self - patient is the [...]
== END 2024-12-15 23:59 | disposition home or self-care (01) ==
LOC: LAB.DROPOF 12-16 13:29
PROVIDERS: PCP Family Medicine; Visit Provider Family Medicine
DX: D64.9 Anemia, unspecified (principal); E78.5 Hyperlipidemia, unspecified
CPT/HCPCS: 82607; 82728; 82746; 83540; 83550; 85025

== ENCOUNTER 2024-12-19 15:11 | Emergency (ER) | payer MEDICARE, SELFPAY ==
--- OUTSIDE RECORDS SUMMARY | 2015-12-13 10:52 | XMS_ITS | Continuity of Care Document ---
Author Organization [facility] Address [address] [place] [address] Phone Care Team Providers Care Order Dispatcher Name Role Phone Natty CASTILLO, Gentry Unavailable [...] as directed. - Active 09/15/15 & 09/29/15 [id number] RxID: [id number] Durezol 0.05 % eye drops Use BID as directed. May sub Lotemax Gel 0.5%, 5 ml. Use QID as directed. May sub Prednisolone Acetate 1%, 10 ml. Use QID as directed. - Active 09/15/15 & 09/29/15 [id number] Ocuflox 0.3 % eye drops Use QID as directed. - Active 6 & 09/29/15 [id number] gabapentin 600 mg tablet take 1 tablet [...] oral route every day in the morning - Active Procedures Procedure Date CATARACT SURG W/IOL, 1 STAGE AK, LASER POSTOP FOLLOW-UP VISIT OPHTHALMIC BIOMETRY CATARACT SURG W/IOL, 1 STAGE AK, LASER POSTOP FOLLOW-UP VISIT EYE EXAM, [facility] Doc meds verified w/pt or re TOBACCO NON-USER OPHTHALMIC BIOMETRY Advance Directives Directive Yes / No Effective Date File Name No Information Encounters Encounter Description Practice Location Reason(s) For Visit Diagnoses Date Provider Providers Copied on En[facility], [address] [place] [address], [address] [place] [address], [phone] [facility] [place] No Information 6 Natty Rinaldi. [address] [place] [address], [id number] , . tel:[phone] [facility], [address] [place] [address], [id number], [phone] [facility] No Information 6 Natty Rinaldi. [address] [place] [address], [id number] , . tel:[phone] Referring Provider: Mohsen Maria, [address] [place] [address], [id number] . tel:[phone] [facility], [address] [place] [address], [id number], tel:[phone] [facility] [place] Cataract eval (chief complaint) Combined Cat OD 6 Giovani Briseno. [address] [place] [address], [id number] , . [phone] Referring Provider: Mohsen Maria, [address] [place] [address], [id number] . tel:[phone] [facility], [address] [place] [address], [id number], tel:[phone] [facility] No Information 6 Natty Edankit. [address] [place] [address], [id number] , . tel:[phone] Referring Provider: Gentry Travis, [address] [place] [address], [id number] . tel:[phone] Mohsen Harbinger [facility], [address] [place] [address], [id number], tel:[phone] [facility] No Information 6 Natty Rinaldi. [address] [place] [address], [id number] , . tel:[phone] Referring Provider: Mohsen Maria, [address] [place] [address], [address] . tel:[phone] Mohsen Harbinger [facility] [place] [facility], [address] [place] [address], [id number], tel:[phone] [facility] [place] decreased vision (chief complaint) Combined Cat OS 6 Giovani Birseno. [address] [place] [address], [id number] , . tel:[phone] Referring Provider: Mohsen Maria, [address] [place] [address], [id number] . tel:[phone] Mohsen [facility] [place] [facility], [address] [place] [address], [id number], tel:[phone] [facility] Blurred vision (chief complaint) Combined Cat OUCombined Cat OS 6 Natty Rinaldi. [address] [place] [address], [id number] , [place]. tel:[phone] Referring Provider: Mohsen Maria, [address] [place] [address], [id number] . tel:[phone] Mohsen Delgado [facility] [place] [facility], [address] [place] [address], [id number], tel:[phone] [facility] No Information 6 Natty Gentry. [address] [place] [address], [id number] , [place]. tel:[phone] Referring Provider: Gentry Travis, [address] [place] [address], [id number] . tel:[phone] Family History Family Member Type Diagnosis Age At Onset Sister Problem (finding) Cancer, unknown Mother Problem (finding) diabetes melli tus in first degree relative Immunizations Vaccine Date Status Comments Zoster administered Source: Other P rovider Pneumo (2 yrs or older)(PPV) administered Source: Other Provider Payers Payer name Insurance type Covered libertarian ID Authoriza tion(s) Medicare [place] [id number] Social History Type Description Quantity Date Captured [...] instructions. Call with any questions or concerns.Scribe: [id number]/COMB CAT COD/IOL STD W/AK LASER TARGET PLANO OU TOPICAL/VISCOAT/ 2ND EYE SEE SW PO 8@120 w/JESKIE BG (POC 90/0 JESKIE BG) COLLECT $? DUR,O,PRO/ NOTES: BB PERF CORNEAL SCAR OD Related to Combined Cat OD 1 day post op w/Dr. Angelo Relat ed to Combined Cat OS Follow up - 1 day post op w/Dr. Angelo Related to Combined Cat OS Impression/Plan - Pa tient is ready to proceed and has no other questions. Recommend IOL. Call with any questions and concerns. [id number]/H25.812/COMB CAT COS/IOL STD w/AK LASER TARGET PLANO OU TOPICAL/VISCOAT/1ST EYE SDS SEE SW /IOL MASTER AND PENT NEEDED /PO 12/06@1100 W/JESKIE IN BG (POC 90/0 JESKIE BG) COLLECT $? DUR,O,PRO/ NOTES: BB PERF CORNEAL SCAR OD/SG Related to Combined Cat OS For surgery Related to Combi chepe Cat OS Follow up - For surgery Related to Combined Cat OS Impression/Plan - Ca taracts account for the patient's complaints. Discussed all risks, benefits, procedures and recovery. Patient understands changing glasses will not improve vision. Patient desires to have surgery, recommend phacoemulsification with intraocular lens. [id number]/H25.812/COMB CATCOS/IOLSTD +/- [place] LASERTARGET PLANO OUTOPICAL/VISCOATIOL MASTER DONE, PENTACAM NEEDEDPOC SABRINA,O,[id number]: BB PERF CORNEAL SCAR ODCOD 22745/H25.811-If you choose the standard implant and have your astigmatism fixed you will have improved distance vision and will need readers.-If you choose the Standard implant you will need time study analyst glasses if you do not have your astigmatism fixed. Related to Combined Cat OS Impression/Plan - -T he eye [...] some astigmatism. Related to Combined Cat OU Assessments Type Assessment Date No Information Patient Care Teams Name Effective Dates (start - stop) Status Members No Information
[2024-12-19] VITALS (15 sets, daily range): BP systolic 109–134; BP diastolic 63–86; PULSE 73–89; RESP 16–20; TEMP 36.4–36.6; O2SAT 94–99; BMI 24.7
--- NOTE | 2024-12-19 15:35 | CT_ITS ---
PROCEDURE INFORMATION: Exam: CTA Head With Contrast, Arteriography Exam date and time: 12/19/2024 4:58 PM Age: 74 years old Clinical indication: Injury or trauma; Additional info: Trauma, critical injury suspected TECHNIQUE: Imaging protocol: Computed tomographic angiography of the head with contrast. Exam focused on the arteries. 3D rendering (Not supervised by radiologist): MIP and/or 3D reconstructed images were created by the technologist. Radiation optimization: All CT scans at this facility use at least one of these dose optimization techniques: automated exposure control; mA and/or kV adjustment per patient size (includes targeted exams where dose is matched to clinical indication); or iterative reconstruction. Contrast material: ISOVUE; Contrast volume: 80 ml; Contrast route: INTRAVENOUS (IV); COMPARISON: CT HEAD/BRAIN WO CON 12/19/2024 4:49 PM FINDINGS: ANTERIOR CIRCULATION: Right internal carotid artery: Calcification involving the right carotid siphon without significant stenosis. Right middle cerebral artery: No occlusion or significant stenosis. No aneurysm. Right anterior cerebral artery: No occlusion or significant stenosis. No aneurysm. Left internal carotid artery: Calcification involving the left carotid siphon without significant stenosis. Left middle cerebral artery: No occlusion or significant stenosis. No aneurysm. Left anterior cerebral artery: No occlusion or significant stenosis. No aneurysm. POSTERIOR CIRCULATION: Right vertebral artery: No occlusion or significant stenosis. No aneurysm. Left vertebral artery: No occlusion or significant stenosis. No aneurysm. Basilar artery: No occlusion or significant stenosis. No aneurysm. Right posterior cerebral artery: No occlusion or significant stenosis. No aneurysm. Left posterior cerebral artery: No occlusion or significant stenosis. No aneurysm. IMPRESSION: No acute vascular pathology. PROCEDURE INFORMATION: Exam: CTA Neck With Contrast Exam date and time: 12/19/2024 4:58 PM Age: 74 years old Clinical indication: Injury or trauma; Additional info: Trauma, critical injury suspected TECHNIQUE: Imaging protocol: Computed tomographic angiography of the neck with contrast. Exam focused on the cervical segments of the vasculature. 3D rendering (Not supervised by radiologist): MIP and/or 3D reconstructed images were created by the technologist. Radiation optimization: All CT scans at this facility use at least one of these dose optimization techniques: automated exposure control; mA and/or kV adjustment per patient size (includes targeted exams where dose is matched to clinical indication); or iterative reconstruction. COMPARISON: CT CERVICAL SPINE WO CON 12/19/2024 4:51 PM FINDINGS: Right common carotid artery: Calcification involving the right common carotid artery greater distally. Stenosis measures less than 50%. Right internal carotid artery: Calcification of the proximal right internal carotid artery. Stenosis measures less than 50%. Right external carotid artery: No occlusion or stenosis of the origin. Left common carotid artery: There is calcification of the distal left common carotid artery. Stenosis measures less than 50%. Left internal carotid artery: Calcification of the proximal left internal carotid artery. Stenosis measures less than 50%. Left external carotid artery: No occlusion or stenosis of the origin. Right vertebral artery: No stenosis. No dissection or occlusion. Left vertebral artery: No stenosis. No dissection or occlusion. Aorta: Aortic calcification. Thyroid: Previous thyroidectomy. Soft tissues: Normal. No significant soft tissue swelling. Bones/joints: Cervical spine is better evaluated on dedicated exam. IMPRESSION: No acute vascular pathology. REFERENCES: NASCET CRITERIA. The degree of stenosis in the cervical segment of the internal carotid artery is based on NASCET criteria. Normal is no stenosis. Mild is less than 50% stenosis. Moderate is 50-69% stenosis. Severe is 70% to 99% stenosis. Total occlusion is no detectable patent lumen.
--- NOTE | 2024-12-19 15:35 | CT_ITS ---
PROCEDURE INFORMATION: Exam: CT Lumbar Spine Without Contrast Exam date and time: 12/19/2024 4:51 PM Age: 74 years old Clinical indication: Injury or trauma; Additional info: Trauma, critical injury suspected TECHNIQUE: Imaging protocol: Computed tomography of the lumbar spine without contrast. Radiation optimization: All CT scans at this facility use at least one of these dose optimization techniques: automated exposure control; mA and/or kV adjustment per patient size (includes targeted exams where dose is matched to clinical indication); or iterative reconstruction. COMPARISON: CT ABDOMEN PELVIS W CON 11/09/2024 7:56 PM FINDINGS: Bones/joints: Acute compression fracture at T12 with up to 40% loss of vertebral body height. No associated spinal canal compromise or distraction of the posterior elements. No acute fracture of the lumbar spine. Schmorl's nodes most pronounced at L3 are unchanged. Stable multilevel degenerative change. L1-L2: Mild diffuse disc bulging. No significant spinal canal or left foraminal stenosis. Mild right foraminal stenosis. L2-L3: Diffuse disc bulging. No significant spinal canal stenosis. Mild bilateral foraminal stenosis. L3-L4: Diffuse disc bulging. Bilateral facet/ligamentum flavum hypertrophy. Mild spinal canal stenosis. Mild bilateral foraminal stenosis. L4-L5: Diffuse disc bulging. Bilateral facet/ligamentum flavum hypertrophy. Moderate spinal canal stenosis. Moderate bilateral foraminal stenosis. L5-S1: Diffuse disc bulging. Bilateral facet hypertrophy. Mild spinal canal stenosis. Moderate bilateral foraminal stenosis. Gallbladder and biliary ducts: Post cholecystectomy. Pancreas: Pancreatic parenchymal calcifications. Adrenal glands: 12 mm left adrenal nodule with an attenuation consistent with an adenoma. Stomach and bowel: Diverticulosis of the colon without evidence of acute diverticulitis as visualized. Vasculature: Aortoiliac atherosclerois. No abdominal aortic aneurysm. 11 mm peripherally calcified splenic artery aneurysm. No rupture. Soft tissues: Unremarkable. IMPRESSION: 1. Acute compression fracture at T12. 2. No acute fracture of the lumbar spine. COMMENTS: Consistent with the [place] [employer]'s Incidental Findings Committee white paper (J Am Igor Radiol 2017): For any incidental adrenal lesion greater than or equal to 1 cm but less than or equal to 4 cm classified in this report as benign, likely benign, or containing fat (including classification as an adenoma or myelolipoma), no follow-up imaging is recommended per consensus recommendations based on imaging criteria. Further lab evaluation could be pursued if warranted based on clinical findings.
--- NOTE | 2024-12-19 15:35 | CT_ITS ---
PROCEDURE INFORMATION: Exam: CTA Neck With Contrast Exam date and time: 12/19/2024 4:58 PM Age: 74 years old Clinical indication: Injury or trauma; Additional info: Trauma, critical injury suspected TECHNIQUE: Imaging protocol: Computed tomographic angiography of the neck with contrast. Exam focused on the cervical segments of the vasculature. 3D rendering (Not supervised by radiologist): MIP and/or 3D reconstructed images were created by the technologist. Radiation optimization: All CT scans at this facility use at least one of these dose optimization techniques: automated exposure control; mA and/or kV adjustment per patient size (includes targeted exams where dose is matched to clinical indication); or iterative reconstruction. Contrast material: ISOVUE; Contrast volume: 80 ml; Contrast route: INTRAVENOUS (IV); COMPARISON: CT ANGIO HEAD 12/19/2024 4:58 PM FINDINGS: Right common carotid artery: Calcification involving the right common carotid artery greater distally. Stenosis measures less than 50%. Right internal carotid artery: Calcification of the proximal aspect of the right internal carotid artery. No hemodynamically significant stenosis. Right external carotid artery: No occlusion or stenosis of the origin. Left common carotid artery: Calcification involving the distal aspect of the left common carotid artery with stenosis measuring less than 50%. Left internal carotid artery: Calcification at the proximal left ICA. Stenosis measures less than 50%. Left external carotid artery: No occlusion or stenosis of the origin. Right vertebral artery: No stenosis. No dissection or occlusion. Left vertebral artery: No stenosis. No dissection or occlusion. Aorta: Aortic calcification. Thyroid: Previous thyroidectomy. Soft tissues: Normal. No significant soft tissue swelling. Bones/joints: Cervical spine is better evaluated on dedicated exam. IMPRESSION: No acute vascular pathology. REFERENCES: NASCET CRITERIA. The degree of stenosis in the cervical segment of the internal carotid artery is based on NASCET criteria. Normal is no stenosis. Mild is less than 50% stenosis. Moderate is 50-69% stenosis. Severe is 70% to 99% stenosis. Total occlusion is no detectable patent lumen.
--- NOTE | 2024-12-19 15:35 | CT_ITS ---
PROCEDURE INFORMATION: Exam: CT Head Without Contrast Exam date and time: 12/19/2024 4:49 PM Age: 74 years old Clinical indication: Injury or trauma; Additional info: Trauma, critical injury suspected TECHNIQUE: Imaging protocol: Computed tomography of the head without contrast. Radiation optimization: All CT scans at this facility use at least one of these dose optimization techniques: automated exposure control; mA and/or kV adjustment per patient size (includes targeted exams where dose is matched to clinical indication); or iterative reconstruction. COMPARISON: MR HEAD/BRAIN WO/W CON 08/01/2023 1:45 PM FINDINGS: Brain: No intracranial hemorrhage. Generalized atrophic changes of the ventricles and subarachnoid spaces. Chronic small-vessel ischemic changes noted. No mass, mass effect or midline shift. Intracranial atherosclerotic changes are noted. Cerebral ventricles: See Brain finding. Paranasal sinuses: Visualized sinuses are unremarkable. No fluid levels. Mastoid air cells: Visualized mastoid air cells are well aerated. Bones: Unremarkable. No acute fracture. Soft tissues: Unremarkable. IMPRESSION: Stable noncontrast CT brain with chronic changes. No acute intracranial abnormality.
--- NOTE | 2024-12-19 15:35 | CT_ITS ---
PROCEDURE INFORMATION: Exam: CTA Chest With Contrast CTA Abdomen and Pelvis With Contrast Exam date and time: 12/19/2024 5:04 PM Age: 74 years old Clinical indication: Injury or trauma; Additional info: Trauma, critical injury suspected TECHNIQUE: Imaging protocol: Computed tomographic angiography of the chest with contrast. Exam focused on the arteries. Computed tomographic angiography of the abdomen and pelvis with contrast. Exam focused on the arteries. 3D rendering (Not supervised by radiologist): MIP and/or 3D reconstructed images were created by the technologist. Radiation optimization: All CT scans at this facility use at least one of these dose optimization techniques: automated exposure control; mA and/or kV adjustment per patient size (includes targeted exams where dose is matched to clinical indication); or iterative reconstruction. Contrast material: ISOVUE; Contrast volume: 80 ml; Contrast route: INTRAVENOUS (IV); COMPARISON: CT ANGIO CHEST PE PROTOCOL 04/24/2023 3:31 PM FINDINGS: VASCULATURE: Pulmonary arteries: Normal. No pulmonary emboli. Aorta: No aortic aneurysm. No aortic dissection. Celiac trunk and mesenteric arteries: 1 cm splenic artery aneurysm at the splenic hilum image 5/69. Renal arteries: Severe stenosis involving the left renal artery 11 mm past its origin. Image 101/36 and 37. Single non hemodynamically significant stenotic right renal artery. Right iliac arteries: No occlusion or significant stenosis. Left iliac arteries: No occlusion or significant stenosis. CHEST: Lungs: Small amount of atelectasis scarring seen medially involving the left upper lobe. Pleural spaces: Unremarkable. No pneumothorax. No pleural effusion. Heart: Unremarkable. No cardiomegaly. No pericardial effusion. ABDOMEN AND PELVIS: Liver: No mass. Gallbladder and biliary ducts: Cholecystectomy clips. No biliary dilatation. Pancreas: Unremarkable. No mass. No ductal dilation. Spleen: Unremarkable. No splenomegaly. Adrenal glands: Unremarkable. No mass. Kidneys and ureters: Small subcentimeter renal lesions presumably small cysts. Stomach and bowel: Scattered colonic diverticulum. Appendix: No evidence of appendicitis. Intraperitoneal space: Unremarkable. No free air. No significant fluid collection. Urinary bladder: Unremarkable. No mass. Reproductive: Unremarkable as visualized. Lymph nodes: Unremarkable. No enlarged lymph nodes. Bones/joints: Healed rib fractures of left ribs. Healed posterior right rib fractures. No acute rib fracture. Inferior endplate fracture of T12 which has occurred in the interval between the 2 examinations. Superior endplate Schmorl's node of L3. Soft tissues: Unremarkable. Other findings: Injection bilateral granulomata. IMPRESSION: 1. Compression fracture of the inferior endplate of T12 that is occurred between the interval of the examinations. However, can not tell if this is acute versus chronic. 2. Splenic artery aneurysm. 3. Severe stenosis left renal artery. 4. No acute posttraumatic abnormality aside from the T12 vertebral body which is indeterminate. COMMENTS: Consistent with the [employer]'s Incidental Findings Committee white paper (J Am Igor Radiol 2018): Any incidental renal lesion less than 1 cm or classified as too small to characterize, or any incidental cystic renal lesion characterized as simple-appearing, is likely benign. No follow-up imaging is recommended for these lesions per consensus recommendations based on imaging criteria.
--- NOTE | 2024-12-19 15:35 | CT_ITS ---
PROCEDURE INFORMATION: Exam: CT Cervical Spine Without Contrast Exam date and time: 12/19/2024 4:51 PM Age: 74 years old Clinical indication: Injury or trauma; Additional info: Trauma, critical injury suspected TECHNIQUE: Imaging protocol: Computed tomography of the cervical spine without contrast. Radiation optimization: All CT scans at this facility use at least one of these dose optimization techniques: automated exposure control; mA and/or kV adjustment per patient size (includes targeted exams where dose is matched to clinical indication); or iterative reconstruction. COMPARISON: 1. MR CERVICAL SPINE WO/W CON 08/01/2023 1:45 PM 2. MR CERVICAL SPINE WO CON 01/01/2023 2:45 PM FINDINGS: Bones: No evident fracture. Degenerative changes of the C-spine most pronounced at C5-C6 and C6-C7. Alignment and vertebral body heights are intact. Lungs: Lung apices are normal. Soft tissues: Unremarkable. IMPRESSION: Degenerative changes. No acute abnormality.
--- NOTE | 2024-12-19 15:35 | CT_ITS ---
PROCEDURE INFORMATION: Exam: CTA Abdomen and Pelvis With Contrast Exam date and time: 12/19/2024 5:04 PM Age: 74 years old Clinical indication: Injury or trauma; Additional info: Trauma, critical injury suspected TECHNIQUE: Imaging protocol: Computed tomographic angiography of the abdomen and pelvis with contrast. Exam focused on the arteries. 3D rendering (Not supervised by radiologist): MIP and/or 3D reconstructed images were created by the technologist. Radiation optimization: All CT scans at this facility use at least one of these dose optimization techniques: automated exposure control; mA and/or kV adjustment per patient size (includes targeted exams where dose is matched to clinical indication); or iterative reconstruction. Contrast material: ISOVUE; Contrast volume: 80 ml; Contrast route: INTRAVENOUS (IV); COMPARISON: CT ABDOMEN PELVIS W CON 11/09/2024 7:56 PM FINDINGS: Aorta: No aortic aneurysm. No aortic dissection. Moderate atherosclerotic plaquing. Celiac trunk and mesenteric arteries: No occlusion or significant stenosis. Calcified splenic artery aneurysm measuring 1 cm in the splenic hilum again demonstrated. Renal arteries: No occlusion. Calcified plaque with 50-70% narrowing proximal left renal artery. Mild narrowing proximal right renal artery. Right iliac arteries: No occlusion or significant stenosis. Left iliac arteries: No occlusion or significant stenosis. Liver: No mass. Gallbladder and biliary ducts: Surgical clips gallbladder fossa. No ductal dilation. Pancreas: Mild pancreatic atrophy with a few calcifications present. No ductal dilatation. Spleen: Unremarkable. No splenomegaly. Adrenal glands: Unremarkable. No mass. Kidneys and ureters: Unremarkable. No solid mass. No hydronephrosis. Stomach and bowel: Unremarkable. No obstruction. No mucosal thickening. Sigmoid diverticulosis. Appendix: No evidence of appendicitis. The appendix is not visualized. Intraperitoneal space: Unremarkable. No free air. No significant fluid collection. Lymph nodes: Unremarkable. No enlarged lymph nodes. Urinary bladder: Unremarkable. No mass. Reproductive: Surgical absence of the uterus. Neither ovary is visualized. Bones/joints: Mild nondisplaced compression fracture involving the inferior vertebral body endplate of T12 that is acute or subacute and new compared to November 09, 2024. Very small degree of paraspinal hematoma formation. No acute narrowing of the spinal canal. No other recent fracture identified. Old posterolateral lower left rib fractures. Soft tissues: Calcified injection granulomata within the buttocks bilaterally. IMPRESSION: 1. No acute vascular injury, aneurysm or dissection is appreciated. Small splenic artery aneurysm again noted. Three-vessel coronary artery disease noted within the lower chest. 2. No acute finding is seen within the abdomen or pelvis. 3. Acute or subacute mild compression fracture inferior vertebral body endplate of T12 that is nondisplaced. 4. Other findings above.
--- NOTE | 2024-12-19 15:35 | CT_ITS ---
PROCEDURE INFORMATION: Exam: CT Thoracic Spine Without Contrast Exam date and time: 12/19/2024 4:51 PM Age: 74 years old Clinical indication: Injury or trauma; Additional info: Trauma, critical injury suspected TECHNIQUE: Imaging protocol: Computed tomography of the thoracic spine without contrast. Radiation optimization: All CT scans at this facility use at least one of these dose optimization techniques: automated exposure control; mA and/or kV adjustment per patient size (includes targeted exams where dose is matched to clinical indication); or iterative reconstruction. COMPARISON: CT LUNG SCREENING 11/14/2024 1:31 PM FINDINGS: Bones/joints: As described on chest CT T12 inferior endplate compression fracture with 25% loss of anterior height. Moderate loss of intervertebral disc space with degenerative changes involving T4 through L1 with exaggerated kyphosis of the midthoracic spine. Healed left posterolateral 6th, 7th, and 8th rib fractures. Soft tissues: Unremarkable. Vasculature: There is moderate calcific atherosclerotic disease of the thoracic aorta without aneurysmal dilatation. Splenic artery aneurysm unchanged from prior exam. Coronary arteries: Moderate three-vessel calcific atherosclerotic disease of the coronary arteries. Gallbladder and biliary ducts: There are surgical clips within the gallbladder fossa. IMPRESSION: 1. As described on chest CT, T12 inferior endplate compression fracture with 25% loss of anterior height. 2. Moderate loss of intervertebral disc space with degenerative changes involving T4 through L1 with exaggerated kyphosis of the midthoracic spine. 3. Healed left posterolateral 6th, 7th, and 8th rib fractures.
--- NOTE | 2024-12-19 15:37 | ED_ITS ---
Discharge Plan Disposition Patient Disposition: Xfer Other Prescriptions Prescriptions: No Action omega-3 acid ethyl esters 1 gram capsule 1 cap PO BID 90 Days Qty: 180 3RF sucralfate [Carafate] 1 gram tablet 1 g PO QACHS PRN duloxetine [Cymbalta] 30 mg capsule,delayed release(DR/EC) 30 mg PO DAILY Qty: 30 2RF levothyroxine [Synthroid] 50 mcg tablet 50 mcg PO DAILY Qty: 90 3RF esomeprazole magnesium 20 mg capsule,delayed release(DR/EC) 20 mg PO DAILY aripiprazole 5 mg tablet 5 mg PO DAILY metformin 500 mg tablet 500 mg PO BID Qty: 60 3RF clopidogrel 75 mg tablet 75 mg PO DAILY Qty: 90 0RF nitrofurantoin macrocrystal 100 mg capsule 100 mg PO BID Qty: 10 0RF Rx Instructions: must administer with a meal/food promethazine 12.5 mg tablet 12.5 mg PO TID PRN (Reason: allergy symptoms) Qty: 14 0RF Rx Instructions: 3 doses during day; last dose no later than 4 hr before bedtime alprazolam [Xanax] 0.5 mg tablet 0.5 mg PO TID PRN (Reason: anxiety) Qty: 90 0RF oxycodone 10 mg tablet 10 mg PO QID PRN (Reason: pain) Qty: 60 0RF Relistor 150 mg tablet 450 mg PO Q24H Qty: 90 0RF Linzess 290 mcg capsule 290 mcg PO DAILY Patient Comments: TAKE 1 CAPSULE BY MOUTH EVERY DAY 30 MINUTES BEFORE FIRST MEAL OF THE DAY ON AN EMPTY STOMACH Referrals Follow up/Referrals: Darrell Lane MD [Primary Care Provider, Family Practice] - See instructions Clinical Impressions Clinical Impression: 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 by RN): pt states she tripped over a rug and fell Sunday. pts primary complaints is lower back to L posterior rib pain. pt also reports bilateral knee pain and hitting the L side of her head on sheet rock. pt states she takes plavix for a previous CVA pt took 1gm tylenol around 1100 without any relief. History of Present Illness HPI narrative: Patient is a 74-year-old female chronically on antiplatelets including aspirin Plavix secondary to having a stroke 15 years ago presents today after a fall and pain in multiple areas. States that she got tripped up by rug and fell directly onto the wall and onto the ground and subsequently has had face neck left lateral flank chest and abdomen pain. Particular on the left side of her chest she is having severe pain. Try to take care of her self at home but states that the pain has been too difficult to manage. Related Data Home Medications ?Medication ?Instructions ?Recorded ?Confirmed linaclotide 290 mcg capsule 290 mcg PO DAILY 10/01/23 12/15/24 (Linzess) sucralfate 1 gram tablet (Carafate) 1 g PO QACHS PRN 0 09/18/24 12/15/24 aripiprazole 5 mg tablet 5 mg PO DAILY 12/15/2412/15 esomeprazole magnesium 20 mg 20 mg PO DAILY 12/15/24 0 12/15/24 capsule,delayed release Previous Rx's ?Medication ?Instructions ?Recorded omega-3 acid ethyl esters 1 gram 1 cap PO BID 90 days #180 caps 06/05/24 capsule Synthroid 50 mcg tablet 50 mcg PO DAILY thyroid dise ase 07/31/24 (levothyroxine) #90 tabs metformin 500 mg tablet 500 mg PO BID #60 tabs 09/16 duloxetine 30 mg capsule,delayed 30 mg PO DAILY #30 ca ps 10/16/24 release (Cymbalta) methylnaltrexone 150 mg tablet 450 mg (3 x 150 mg) PO Q24H #90 11/09/24 (Relistor) tabs clopidogrel 75 mg tablet 75 mg PO DAILY Blood thinner #90 11/24/24 tabs nitrofurantoin macrocrystal 100 mg 100 mg PO BID #10 c aps 12/06/24 capsule promethazine 12.5 mg tablet 12.5 mg PO TID PRN allergy 12/08/24 symptoms #14 tabs alprazolam 0.5 mg tablet (Xanax) 0.5 mg PO TID PRN anx iety #90 tabs 12/18/24 oxycodone 10 mg tablet 10 mg PO QID PRN pain #60 ta bs 12/18/24 Allergies Allergy/AdvReac Type Severity Reaction Status Date / Time cefaclor (From [facility]) Allergy Mild Verified 12/15/24 14:26 codeine Allergy Mild Verified 12/15/24 14:26 Sulfa (Sulfonamide Allergy Mild Verified 12/15/24 14:26 Antibiotics) [facility] Disclaimer: The information contained in this section may have been updated after the patient was seen, as this information can be updated by other users. Medical History Tobacco use Breast cancer screening by mammogram Encounter for pre-operative cardiovascular clearance Abnormal electrocardiogram [ECG] [EKG] Hyperlipidemia Hypothyroidism CAD (coronary artery disease) Anxiety COPD (chronic obstructive pulmonary disease) Panic disorder Surgical History Hx of appendectomy History of hysterectomy History of cholecystectomy History of thyroidectomy Family History Other No significant family history Social History (Updated 12/15/24 @ 14:30 by Cora Flores RN) Smoking Status: Current every day smoker tobacco type: cigarettes quit status: considering quitting alcohol intake: never substance use type: denies use current occupational status: retired Travel in the last 8 weeks?: None Have you lived/traveled outside US in past 30 days?: No Contact w/someone who lives/traveled outside US past 30 days?: No Exposure to someone with infectious disease in past 14 days?: No Do you have a fever (greater than 100.4 F or 38 C)?: No Have you tested positive for COVID-19?: No Exposed to someone with COVID-19 in past 14 days?: No Do you have a sore throat?: No Do you have a cough?: No Do you have any weakness?: No Do you have any diarrhea?: No Are you experiencing any unusual bleeding?: No Do you have any muscle aches/pain?: No Do you have any abdominal pain?: No Are you experiencing loss of taste or smell?: No Other Medical History Have you received the Flu Vaccine for this season: Yes Have you received the Pneumonia Vaccine: Yes ROS Obtained: Yes All systems reviewed & no additional complaints except as documented Physical Exam General General appearance: alert Neck Neck exam: Present tenderness (Midline C-spine tenderness no step-offs or deformities bilateral upper extremity motor exam is normal) Chest Chest inspection: Present tenderness (Left lateral chest wall tenderness) Respiratory Respiratory exam: Present normal lung sounds bilaterally; Absent respiratory distress Cardiovascular Cardiovascular exam: Present regular rate and normal rhythm Abdominal Exam Abdominal exam: Present soft and tenderness (Left-sided abdominal tenderness) Neurological Exam Neurological exam: Present alert and oriented X3 Medical Decision Making Medical Records Screening: Per USPSTF and CDC recommendations, given the prevalence of disease in our region, it is our hospital?s policy to screen for HIV and viral Hepatitis for all patients aged 18 and over and those with ongoing risk factors. Marvin Inquiry Pt receiving controlled substance: No Vital Signs: 12/19/24 15:23 12/19/24 16:00 12/19/24 16:08 Temperature 98 F Temperature Source Oral Pulse Rate 82 Pulse Rate [Left] 88 Respiratory Rate 16 Blood Pressure 118/68 Blood Pressure [Right Arm] 134/69 Blood Pressure Mean [Right Arm] 90 Blood Pressure Source [Right Arm] Automatic Cuff Blood Pressure Position [Right Arm] Sitting 02 Sat by Pulse Oximetry 97 95 96 Oxygen Delivery Method Room Air Room Air 12/19/24 16:08 12/19/24 16:30 12/19/24 17:30 Temperature Temperature Source Pulse Rate 75 80 Pulse Rate [Left] Respiratory Rate Blood Pressure 111/65 117/65 Blood Pressure [Right Arm] Blood Pressure Mean [Right Arm] Blood Pressure Source [Right Arm] Blood Pressure Position [Right Arm] 02 Sat by Pulse Oximetry 96 95 98 Oxygen Delivery Method Room Air Lab Data Lab results reviewed: Yes I reviewed the patient's lab results. Lab Results 12/19/24 16:00: WBC 5.7, RBC 3.39 L, Hgb 10.5 L, Hct 31.5 L, MCV 92.9, MCH 31.0, MCHC 33.3, RDW 13.2, Plt Count 275, MPV 9.3, Neut % (Auto) 66.2, Lymph % (Auto) 26.6, [place] % (Auto) 5.1, Eos % (Auto) 1.2, Baso % (Auto) 0.7, Neut # (Auto) 3.8, Lymph # (Auto) 1.5, [place] # (Auto) 0.3, Eos # (Auto) 0.1, Baso # (Auto) 0.0, PT 12.4, INR 1.13 H, APTT 29.8, Sodium 139, Potassium 3.7, Chloride 104, Carbon Dioxide 26, Anion Gap 12.7, BUN 11, Creatinine 0.60, Estimated Creat Clear 54, Estimated GFR 97, Est GFR ( Amer) 118, Glucose 134 H, Calcium 8.8, Total Bilirubin 0.4, AST 26, ALT 14, Alkaline Phosphatase 73, Total Protein 7.9, Albumin 4.2, Globulin 3.7 H, Albumin/Globulin Ratio 1.1 12/19/24 17:44: Urine Color Yellow, Urine Appearance Sl cloudy, Urine pH 7.5, Ur Specific [place] 1.010, Urine Protein Negative, Urine Glucose (UA) Negative, Urine Ketones Negative, Urine Blood Negative, Urine Nitrate Positive A, Urine Bilirubin Negative, Urine Urobilinogen 0.2, Ur Leukocyte Esterase 1+ A 12/19/24 16:00 12/19/24 16:00 Orders (Tests/Meds): ED MEDICATIONS Discontinued Medications Generic Name Dose Route Start Last Admin Trade Name Freq PRN Reason Stop Dose Admin Lactated Ringer's 500 mls @ 999 mls/hr 12/19/24 16:00 12/19/24 16:04 Lactated Ringer's 500ml IV 12/19/24 16:30 999 mls/hr .Q31M ONE Administration Iopamidol 160 ml 12/19/24 17:02 12/19/24 17:04 Iopamidol-370 (76%);100ml Bottle IV 12/19/24 17:03 160 ml ONCE ONE Administration Morphine Sulfate 2 mg 12/19/24 15:35 12/19/24 16:04 Morphine 4mg/Ml Syringe IV 12/19/24 15:36 2 mg ONCE ONE Administration Morphine Sulfate 2 mg 12/19/24 16:42 12/19/24 16:44 Morphine 2mg/Ml Syringe IV 12/19/24 16:43 2 mg ONCE ONE Administration Ondansetron HCl 4 mg 12/19/24 15:35 12/19/24 16:04 Ondansetron 4mg/2ml Vial IV 12/19/24 15:36 4 mg ONCE ONE Administration Sodium Chloride 10 ml 12/19/24 17:02 12/19/24 17:04 Sodium Chloride 0.9% 10ml Syr (Rad Only) IV 12/19/24 17:03 10 ml ONCE ONE Administration Sodium Chloride 100 ml 12/19/24 17:02 12/19/24 17:04 0.9 % Sodium Chloride 50 Ml Vial IV 12/19/24 17:03 100 ml ONCE ONE Administration ORDERS Category Date Time Status CT angio abd/pel - TRAUMA Stat Cat Scan 12/19/24 15:[address] angio chest - dissection Stat Cat Scan 12/19/24 15:[address] angio head Stat Cat Scan 12/19/24 15:[address] angio neck Stat Cat Scan 12/19/24 15:[address] cervical spine wo con Stat Cat Scan 12/19/24 15:[address] head/brain wo con Stat Cat Scan 12/19/24 15:[address] lumbar spine wo con Stat Cat Scan 12/19/24 15:[address] thoracic spine wo con Stat Cat Scan 12/19/24 15:35 Taken CBC w/Auto Diff [Complete Blood Count Auto Diff] Stat Lab 12/19/24 16:00 Completed CMP [Comprehensive Metabolic Panel] Stat Lab 12/19/24 16:00 Completed PT/PTT Stat Lab 12/19/24 16:00 Completed UA [Urinalysis and Microscopic] Stat Lab 12/19/24 17:44 Results Urine Culture Stat Micro 12/19/24 17:44 Received Medical Decision Narrative: 74-year-old with above history and physical has significant midline cervical spine lateral chest and abdomen pain after a fall while chronically on antiplatelets. Will get full trauma scans given the diffuse nature of her complaints. I suspect she may have multiple ribs as her primary issue is the majority of her pain is left lateral aspect of her chest wall. Pain medicine IV medicine IV fluids have been administered and will reassess shortly. Reassessment 6:16 PM patient continues to have severe left flank pain requiring multiple doses of opiates. Scans performed I personally interpreted which shows a left splenic artery aneurysm about 10 mm also T12 compression fracture she is focally tender over this area clinically is consistent with an acute fracture. I have no imaging or alternative explanation for her left flank pain other than the splenic artery aneurysm no evidence of any extravasation rupture stranding at [place]. Given the fact that this is presumed to be acute and associated with this fall we will transfer her to be seen by trauma surgery and possible need for IR intervention. Additionally patient has had a chronic urinary tract infection she has been followed by multiple specialist for this in the past and has had multidrug-resistant organisms that have grown has not had ESBL organisms and most recently grew E. coli and Klebsiella both of which were susceptible to Zosyn therefore IV antibiotics have been initiated here in the emergency department as well she continues to have urinary tract infection symptoms with frequency. Critical Care Critical Care Time Critical Care Time: Yes Attestation: On 12/19/24, the high probability of a clinically significant, sudden or life threatening deterioration of the following system(s) required my full and direct attention, intervention and personal management. The time I documented below is in addition to time spent performing reported procedures but includes the following listed in this critical care notation. Total Time Total Critical Care Time: 35
--- OUTSIDE RECORDS SUMMARY | 2024-12-19 15:37 | XMS_ITS | Patient Health Record ---
Author Organization [facility] [address] [place] [address] Care Team Providers Care Clinical Lab Specialist Name Role Phone NAUN OLIVARES Unavailable [phone] Allergies Allergen (clinical drug ingredient) Drug/Non Drug [...] W/U Status Risk Notes Problem Fatty liver (975016045) Fatty liver (K76.0) Active confirmed Problem Constipation by delayed colonic transit (18161081) Constipation by delayed colonic transit (K59.01) Active confirmed Plan Of Treatment Pending Test Test Name Order Date Ultrasound : Liver (30749) 10/04/2017 Future Test Test Name Order Date CBC (H/H, RBC, INDICES, WBC, PLT) (1759) 10/05/2017 ALPHA FETOPROTEIN, TUMOR MARKER 10/06/19 18 HEMOGLOBIN A1c. (496) 10/05/2017 PROTHROMBIN TIME-INR ([facility] Test Code: 8 847) 10/05/2017 Liver Fibrosis, FibroTest-ActiTest Panel (70416) 10/05/2017 Insurance Providers Payer Name Payer Address Payer Phone Subscriber Number Group Number Insured Name Patient Relationship to Insured Coverage Start Date Coverage End Date [facility] [address] [place] [address] [phone] [id number] Rox Whitfield Self - patient is the insured 8 Medical (General) History Medical History History ICD Code Hypothyroidism depression pancreatitis Surgical History Surgery Date(Month/Year) cholecystectomy hysterectomy thyroid
--- OUTSIDE RECORDS SUMMARY | 2024-12-19 15:37 | XMS_ITS | Encounter Summary ---
Author Organization Healthcare Address [address] [place] [address] Care Team Providers Care Patient Support Assistant Name Role Phone Darrell Lane MD Primary Care Provider [phone] Reason for Visit * Reason Onset Date Comments HCN Clinical Concern/Question 10/16/2024 Encounter Details Date Type Department Care Team (Late st Contact Info) Description 10/16/2024 Telephone [facility] [address] [place] [address] Yissel Preciado, ORAL THERAPIST, DNP [address] [place] [address] HCN Clinical Concern/Question Social History [...] seen by Dr. Lizarraga. Best contact number: [phone] (home) Optimal time of day to reach caller: ANYTIME Additional comments/information from caller: None Note: Please do not reply to this message. Follow-up communication and further actions as a result of this message need to be communicated with the patient directly, if the patient is not active onMyChart. If the patient is active on MyChart, they will receive notification of the communication/outcome via Ku6hart. documented in this encounter Plan of Treatment Upcoming Encounters Date Type Department Care Team (Late st Contact Info) Description 02/18/2025 3:00 PM EDT Consult [facility] Urology [address] [place] [address] Tara Lizarraga MD [address] [place] [address] documented as of this encounter Visit Diagnoses Not on filedocumented in this encounter Care Teams Patient Support Assistant Relationship Specialty Start Date End Date Darrell Lane MD [address] [place] [address] PCP - General 10/15/24 documented as of this encounter
--- OUTSIDE RECORDS SUMMARY | 2024-12-19 15:37 | XMS_ITS | Encounter Summary ---
Author Organization Healthcare Address [address] [place] [address] Care Team Providers Care Safety Counselor Name Role Phone Darrell Lane MD Primary Care Provider [phone]- [phone] Reason for Visit * Reason Onset Date Comments HCN Clinical Concern/Question 10/20/2024 Encounter Details Date Type Department Care Team (Late st Contact Info) Description 10/20/2024 Telephone [facility] [address] [place] [address] Tara Lizarraga MD [address] [place] [address] HCN Clinical Concern/Question Social History [...] Request routed to both Clinical and desk officer staffper previous note for scheduling./aft Best contact number and optimal time of day to reach caller: Patient can be reached at [phone] Note: Please do not reply to this [...] Info) Description 02/18/2025 3:00 PM EDT Consult [facility] Urology [address] [place] [address] Tara Lizarraga MD [address] [place] [address] documented as of this encounter Visit Diagnoses Not on filedocumented in this encounter Care Teams Safety Counselor Relationship Specialty Start Date End Date Darrell Lane MD [address] [place] [address] PCP - General 10/15/24 documented as of this encounter
--- OUTSIDE RECORDS SUMMARY | 2024-12-19 15:37 | XMS_ITS | Clinical Summary ---
Author Organization [facility] Address [address] [place] [address] Care Team Providers Care Kraft Digester Operator Name Role Phone Meghan Goldberg MD Primary Care Provider [phone] Allergies Active Allergy Reactions Criticality Noted Date [...] VACCINE 02/04/2025 Insurance MEDICARE A & B [facility] MEDICARE REPLACEMENT Care Teams Kraft Digester Operator Relationship Specialty Start Date End Date Meghan Goldberg MD PCP - General Family Medicine 02/28/21
--- OUTSIDE RECORDS SUMMARY | 2024-12-19 15:39 | XMS_ITS | Patient Health Record ---
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) Active confirmed Problem 150254000 Chronic pain disorder (G89.4) Active confirmed Problem 30456960 Osteoarthritis, chronic (M19.90) Active confirmed Problem 25348703 Hypothyroidism, iatrogenic (E03.2) Active confirmed Problem 041189181 Insomnia, unspecified type (G47.00) Active confirmed Plan Of Treatment Pending Test Test Name Order Date MAMMOGRAM; SCREENING, BILATERAL (36558) 06/17/2014 - BREAST RIO([facility]BREST[facility]) 06/17/2014 Insurance Providers Payer Name Payer Address Payer Phone Subscriber Number Group Number Insured Name Patient Relationship to Insured Coverage Start Date Coverage End Date MEDICARE [place] PART B [address] [place], [place] [id number] Rox Whitfield Self - patient is the [...]
--- OUTSIDE RECORDS SUMMARY | 2024-12-19 15:39 | XMS_ITS | Clinical Summary ---
Author Organization [facility] Address [address] [place] [address] Care Team Providers Care Airveyor Operator Name Role Phone Darrell Lane MD Primary Care Provider [phone] Encounters Date Type Department Care Team Description 10/20/2024 Telephone [facility] U[facility] [address] [place] [address] Tara Lizarraga MD HCN Clinical Concern/Question 10/16/2024 Telephone [facility] [address], [address] [place] [address] Yissel Preciado APRN, DNP HCN [...] Info) Description 02/18/2025 3:00 PM EDT Consult [facility] [address] [place] [address] Tara Lizarraga MD [address] [place] [address] Health Maintenance Due Date Last Done Comments [facility]-Bone Density Scan 1948 [facility]-Depression Screening 1948 [facility]-Hepatitis C Screening 1948 [facility]-Medicare Annual Wellness (AWV) 1948 [facility]-/Child/Adol SDOH Screenings 1948 [facility]- SDOH Screenings 1966 [facility]-Adult SDOH Screenings 1966 [facility]-DTaP,Tdap,and Td Vaccines (1 - Tdap) 08/01/1967 [facility]-RSV Vaccine: 60+ Years or (1 - 1-dose 75+ series) 08/01/2023 [id number] Vaccine (3 - season) 2024 11/26/2021, 08/30/2020 [...] patient's age to complete this topic Insurance [facility] MEDICARE Care Teams Airveyor Operator Relationship Specialty Start Date End Date Darrell Lane MD [address] [place] [address] PCP - General 10/15/24
--- OUTSIDE RECORDS SUMMARY | 2024-12-19 15:39 | XMS_ITS | Patient Health Record ---
Author Organization [facility] Address [address] [place] [address] Support Name Relationship Address Phone MAY CROUCH Guarantor Unknown [phone] Reason For Referral No Information Plan Of Treatment No Information Insurance Providers Payer Name Payer Address Payer Phone Subscriber Number Group Number Insured Name Patient Relationship to Insured Coverage Start Date Coverage End Date [employer] [address] [address] [place] [address] [id number] MAY CROUCH Self - patient is the insured
[2024-12-19] MEDS: MORPHINE 4MG/ML SYRINGE 2 MG IV (16:04)
[2024-12-19] MEDS: RINGERS SOLUTION,LACTATED 500 ML 999 ML IV (16:04)
[2024-12-19] MEDS: ONDANSETRON 4MG/2ML VIAL 4 MG IV (16:04)
[2024-12-19 16:14] LABS: Hematocrit 31.5 % (37.0-47.0); Hemoglobin 10.5 g/dL (12.2-16.2); Immature Granulocytes % 0.2 %; Mean Corpuscular HGB Conc 33.3 g/dL (31.8-35.4); Mean Corpuscular Hemoglobin 31.0 pg (27.0-31.2); Mean Corpuscular Volume 92.9 fl (81-99); Nucleated Red Blood Cells % 0 %; Platelet Count 275 K/mm3 (142-424); Red Blood Count 3.39 M/mm3 (4.20-5.40); Red Cell Distribution Width-SD 44.8 fL; White Blood Count 5.7 K/mm3 (4.8-10.8)
[2024-12-19 16:21] LABS: Albumin Level 4.2 g/dl (3.5-5.0); Chloride 104 mmol/L (98-107); Sodium 139 mmol/L (136-145)
[2024-12-19 16:22] LABS: Potassium 3.7 mmoL/L (3.5-5.1)
[2024-12-19 16:24] LABS: Alanine Aminotransferase 14 U/L (12-78); Alkaline Phosphatase 73 U/L (38-126); Anion Gap 12.7 mEq/L (5-15); Aspartate Amino Transferase 26 U/L (14-36); Bilirubin,Total 0.4 mg/dl (0.2-1.3); Blood Urea Nitrogen 11 mg/dl (7-17); Carbon Dioxide 26 mmol/L (22.0-30.0); Creatinine Clearance Estimated 54 mL/min (50-200); Creatinine,Serum 0.60 mg/dl (0.52-1.04); Estimated Glomerular Filt Rate 97 ml/min (>60); GFR (African American) 118 ML/MIN (>60)
[2024-12-19 16:25] LABS: Activated Partial Thrombo Time 29.8 seconds (22.8-30.6); Albumin/Globulin Ratio 1.1 (1.1-1.8); Calcium 8.8 mg/dl (8.4-10.2); Globulin 3.7 g/dL (1.3-3.2); Glucose 134 mg/dl (74-100); INR 1.13 (0.9-1.1); Prothrombin Time 12.4 seconds (10.1-12.5); Total Protein,Serum 7.9 g/dl (6.3-8.2)
--- NOTE | 2024-12-19 16:35 | PC.NURSE ---
pt taken to ct scan via stretcher
[2024-12-19] MEDS: MORPHINE 2MG/ML SYRINGE 2 MG IV (16:44)
[2024-12-19] MEDS: SODIUM CHLORIDE 0.9% 10ML SYR (RAD ONLY) 10 ML IV (17:04)
[2024-12-19] MEDS: IOPAMIDOL-370 (76%);100ML BOTTLE 160 ML IV (17:04)
[2024-12-19] MEDS: 0.9 % SODIUM CHLORIDE 50 ML VIAL 100 ML IV (17:04)
[2024-12-19 17:48] LABS: Microscopic, Urine URINE MICROSCOPIC (MICROSCOPIC)
[2024-12-19 17:50] LABS: Bilirubin,Urine Negative (Negative); Color,Urine YELLOW (Yellow); Glucose,Urine (UA) Negative (Negative); Ketones,Urine Negative (Negative); Leukocyte Esterase,Urine 1+ (Negative); PH,Urine 7.5 (5.0-8.5); Protein,Urine Negative (Negative); Specific Gravity, Urine 1.010 (1.005-1.030); Urobilinogen,Urine 0.2 EU/dl (0.2)
--- NOTE | 2024-12-19 17:57 | PC.NURSE ---
call made to transfer center for T12 fx, splenic artery aneurysm.
[2024-12-19 18:19] LABS: Bacteria,Urine 4+ /lpf; WBC,Urine 20-50 #/hpf (0-3)
[2024-12-19] MEDS: PIPERCILLIN/TAZO 3.375 GM in 0.9 % SODIUM CHLORIDE 50 ML IV (18:31)
--- NOTE | 2024-12-19 18:31 | PC.NURSE ---
call made to [facility] for pt transport to [facility]
[2024-12-19] MEDS: OXYCODONE 5MG IMMEDIATE RELEASE TABLET 10 MG PO (18:34)
--- NOTE | 2024-12-20 13:45 | PC.NURSE ---
pts prelim urine culture forwarded to [facility] as the pt was transferred there to
--- NOTE | 2024-12-21 10:49 | PC.NURSE ---
pts final urine culture faxed to [facility] as the pt was transferred there under the care of .
== END 2024-12-19 21:10 | disposition other institution (70) ==
PROVIDERS: Emergency Provider Student in an Organized Health Care Education/Training Program; PCP Family Medicine
DX: S22.080A Wedge compression fracture of T11-T12 vertebra, initial encounter for closed fracture (principal); R07.81 Pleurodynia; I72.8 Aneurysm of other specified arteries; N39.0 Urinary tract infection, site not specified; Z79.02 Long term (current) use of antithrombotics/antiplatelets; W01.10XA Fall on same level from slipping, tripping and stumbling with subsequent striking against unspecified object, initial encounter
CPT/HCPCS: 70450; 70496; 70498; 71275; 72125; 72128; 72131; 74174; 80053; 81001; 85025; 85610; 85730; 87086; 87088; 87186; 96365; 96366; 96375; 96376; 99291; J2270; J2405; J2543; J7120; Q9967

== ENCOUNTER 2025-01-16 08:24 | Outpatient (CLI) | payer MEDICARE, SELFPAY | END 2025-01-16 23:59 | LOC: LAB.DROPOF 01-22 08:24 | PROVIDERS: PCP Family Medicine; Visit Provider Family Medicine | DX: N39.0 Urinary tract infection, site not specified (principal) | CPT/HCPCS: 87086; 87088; 87186 ==

== ENCOUNTER 2025-03-25 14:38 | Emergency (ER) | payer MEDICARE, SELFPAY ==
[2025-03-25 14:51] VITALS: BP 124/77; PULSE 73; RESP 16; TEMP 36.7; O2SAT 95; BMI 24.7
--- OUTSIDE RECORDS SUMMARY | 2025-03-25 16:15 | XMS_ITS | Patient Health Record ---
Author Organization [facility] [address] [place] [address] Care Team Providers Care Life Sciences Director Name Role Phone NAUN Crooks Unavailable [phone] Allergies Allergen (clinical drug ingredient) Drug/Non Drug Allergy documented on EMR Reaction Allergy Type Onset Date Status codeine Codeine Sulfate Unknown Drug Allergy A ctive acetaminophen Tylenol Unknown Drug Allergy Act medina cefaclor Cefaclor Unknown Drug Allergy Active Reason For Referral No Information Medications Medication SIG (Take, Route, Frequency, Duration) Notes Start Date End Date Status Synthroid 75 MCG Tablet 1 tablet on an e mpty stomach in the morning Oral Active ALPRAZolam 1 MG Tablet 1 tablet Oral thr ee times a day (tid) Active Omeprazole 40 mg Capsule Delayed Release 1 capsule Orally Once a day 30 min before a meal; Duration: 30 day(s) Active Lopid 600 MG Tablet 1 tablet Orally Twic e a day; Duration: 90 days 10/05/2017 Active Lactulose 10 GM/15ML Solution 30 cc Orally three times a day (tid); Duration: 30 day(s) 10/05/2017 Active DULoxetine HCl 20 mg Capsule Delayed Release Particles 1 capsule Oral daily Active Social History Social History Additional Details Category Social Info Options Details [facility] Social History: Marital status Tobacco (USE *TOBACCO CONTROL* SMARTFORM) 1/2 ppd Alcohol (USE *AUDIT C* SMART FORM) never Children Yes 3 children - all Occupation Retired Problems Problem Type SNOMED Code ICD Code Onset Dates Problem Status W/U Status Risk Notes Problem Fatty liver (794913107) Fatty liver (K76.0) Active confirmed Problem Constipation by delayed colonic transit (59617652) Constipation by delayed colonic transit (K59.01) Active confirmed Plan Of Treatment Pending Test Test Name Order Date Ultrasound : Liver (56962) 10/04/2017 Future Test Test Name Order Date CBC (H/H, RBC, INDICES, WBC, PLT) (1759) 10/05/2017 ALPHA FETOPROTEIN, TUMOR MARKER 10/06/19 18 HEMOGLOBIN A1c. (496) 10/05/2017 PROTHROMBIN TIME-INR ([facility] Test Code: 8 847) 10/05/2017 Liver Fibrosis, FibroTest-ActiTest Panel (63477) 10/05/2017 Insurance Providers Payer Name Payer Address Payer Phone Subscriber Number Group Number Insured Name Patient Relationship to Insured Coverage Start Date Coverage End Date [facility] [address] [place] [phone] [id number] [address] Self - patient is the insured 8 Medical (General) History Medical History History ICD Code Hypothyroidism depression pancreatitis Surgical History Surgery Date(Month/Year) thyroid hysterectomy cholecystectomy
[2025-03-25 16:32] VITALS: BP 135/86; PULSE 79; RESP 16; O2SAT 97
[2025-03-25 16:33] LABS: Microscopic, Urine URINE MICROSCOPIC (MICROSCOPIC)
--- NOTE | 2025-03-25 16:36 | CT_ITS ---
PROCEDURE INFORMATION: Exam: CT Abdomen And Pelvis With Contrast Exam date and time: 03/25/2025 6:26 PM Age: 74 years old Clinical indication: Abdominal pain; Additional info: Luq and left CVA pain TECHNIQUE: Imaging protocol: Computed tomography of the abdomen and pelvis with contrast. Total images: 300 Radiation optimization: All CT scans at this facility use at least one of these dose optimization techniques: automated exposure control; mA and/or kV adjustment per patient size (includes targeted exams where dose is matched to clinical indication); or iterative reconstruction. Contrast material: ISOVUE; Contrast volume: 75 ml; Contrast route: IV; COMPARISON: CT ANGIO ABD/PEL - TRAUMA 12/19/2024 5:04 PM FINDINGS: Lungs: Minor patchy ground-glass infiltrate and tree-in-bud opacity in the left upper lobe. Calcified right middle lobe granuloma. Minor bibasilar atelectasis. Heart: Normal heart size. Coronary arteries: Severe coronary artery calcifications. Liver: Mild liver steatosis versus phase of contrast. Otherwise, unremarkable liver. Gallbladder and biliary ducts: Status post cholecystectomy. No biliary ductal dilatation. Pancreas: Normal. No ductal dilation. Spleen: Normal. No splenomegaly. Adrenal glands: Stable 16 mm left adrenal nodule/adenoma. Unremarkable right adrenal gland. Kidneys and ureters: No hydronephrosis, nephrolithiasis, or discrete renal mass. Tiny subcentimeter renal cortical hypodensities are too small to characterize but statistically cysts requiring no strict follow-up. Left renal sinus calcification, most likely vascular origin. Stomach and bowel: Unremarkable stomach and duodenum. No ileus or bowel obstruction. Small bowel appears within normal limits. Moderate colonic stool burden. Unremarkable rectum. Mild colonic diverticulosis without acute diverticulitis. Appendix: Nonvisualized appendix. No secondary signs for appendicitis. Intraperitoneal space: Mild omental edema in the left upper quadrant left mid abdomen, of undetermined etiology. No ascites. No free air. Vasculature: Contrast flow artifacts in the superior mesenteric vein, main portal vein, and IVC. Moderate atherosclerotic vascular disease. Nonaneurysmal abdominal aorta. 14 mm splenic artery aneurysm, unchanged. Lymph nodes: Mildly prominent right inguinal lymph node, most likely reactive/postinflammatory. Urinary bladder: Unremarkable as visualized. Reproductive: Status post hysterectomy. No adnexal mass. Bones/joints: Severe osteopenia. Severe degenerative changes of the thoracolumbar spine. Remote moderate anterior wedging of the T12 vertebral body. Mild degenerative changes bilateral hips and SI joints. Mild levocurvature at the thoracolumbar junction. Chronic osteitis of the pubic symphysis. Soft tissues: Very tiny fat containing umbilical hernia. Bilateral calcified gluteal injection granulomas. Midline lower abdominal wall scarring. IMPRESSION: 1. Interval mild omental edema in the left upper quadrant and left mid abdomen. Differential includes contusion, fat necrosis, nonspecific panniculitis. 2. Minor patchy ground-glass infiltrate and tree-in-bud opacity in the left upper lobe, in keeping with pneumonitis and distal small airway inflammation. 3. Multiple additional remote/chronic findings. COMMENTS: Consistent with the [employer]'s Incidental Findings Committee white paper (J Am Igor Radiol 2018): Any incidental renal lesion less than 1 cm or classified as too small to characterize, or any incidental cystic renal lesion characterized as simple-appearing, is likely benign. No follow-up imaging is recommended for these lesions per consensus recommendations based on imaging criteria.
[2025-03-25 16:41] LABS: Bilirubin,Urine Negative (Negative); Color,Urine YELLOW (Yellow); Glucose,Urine (UA) Negative (Negative); Ketones,Urine Negative (Negative); Leukocyte Esterase,Urine 3+ (Negative); PH,Urine 6.0 (5.0-8.5); Protein,Urine TRACE (Negative); Urobilinogen,Urine 1.0 EU/dl (0.2)
--- NOTE | 2025-03-25 16:41 | HMH.EDGENADL ---
Discharge Plan Disposition Patient Disposition: Home, Self-Care Prescriptions Prescriptions: New levofloxacin 750 mg tablet 750 mg PO DAILY 7 Days Qty: 7 0RF No Action omega-3 acid ethyl esters 1 gram capsule 1 cap PO BID 90 Days Qty: 180 3RF sucralfate [Carafate] 1 gram tablet 1 g PO QACHS PRN alprazolam [Xanax] 0.5 mg tablet 0.5 mg PO TID PRN (Reason: anxiety) Qty: 90 2RF duloxetine 20 mg capsule,delayed release(DR/EC) 20 mg PO DAILY Qty: 30 2RF levothyroxine [Synthroid] 50 mcg tablet 50 mcg PO DAILY Qty: 90 3RF nitrofurantoin macrocrystal 100 mg capsule 100 mg PO HS Qty: 30 1RF Rx Instructions: must administer with a meal/food esomeprazole magnesium 20 mg capsule,delayed release(DR/EC) 20 mg PO DAILY clopidogrel 75 mg tablet 75 mg PO DAILY Qty: 90 0RF nitrofurantoin macrocrystal 100 mg capsule 100 mg PO BID Qty: 10 0RF Rx Instructions: must administer with a meal/food promethazine 12.5 mg tablet 12.5 mg PO TID PRN (Reason: allergy symptoms) Qty: 14 0RF Rx Instructions: 3 doses during day; last dose no later than 4 hr before bedtime metformin 500 mg tablet 500 mg PO BID Qty: 60 3RF oxycodone 10 mg tablet 10 mg PO QID Qty: 120 0RF Relistor 150 mg tablet 450 mg PO Q24H Qty: 90 0RF Linzess 290 mcg capsule 290 mcg PO DAILY Patient Comments: TAKE 1 CAPSULE BY MOUTH EVERY DAY 30 MINUTES BEFORE FIRST MEAL OF THE DAY ON AN EMPTY STOMACH Referrals Follow up/Referrals: Darrell Lane MD [Primary Care Provider, Family Practice] - See instructions Activity Restrictions/Add. Instructions Additional Instructions/Restrictions: You have clinical evidence of a urinary tract infection involving your kidney called pyelonephritis with also some surrounding inflammatory changes of the fat in your abdomen called panniculitis. Antibiotics were given to you tonight and a prescription of antibiotics were sent to your pharmacy please return with high fevers worsening pain or other concerns. Clinical Impressions Clinical Impression: Pyelonephritis, Mesenteric panniculitis Instructions Patient Instructions: DI for Urinary Tract Infection (UTI), DI for Urinary Tract Infection in Children Print Language Print Language: Kiswahili Discharge ED Provider: Derrick Garza General Adult HPI General Chief complaint: Urogenital-Female Stated complaint: Pain on L side Time Seen by Provider: 03/25/25 16:32 Mode of Arrival: Ambulatory Source of Information: Patient Description of Symptoms (Recalled from ER Triage Doc. by RN): Pt presents with c/o left sided back pain that started 4 days ago. Pt states her urine has a foul odor. Pt c/o dysuria and frequency. Pt states she has had a bladder infection for a year now that is resistant to all antibiotics. History of Present Illness HPI narrative: Patient is a 74-year-old with a history of diverticulitis who presents today with left upper quadrant left flank and back pain that has been ongoing for 4 days associated with foul smelling odor with increased urinary frequency and urgency. She denies any fevers. Denies any changes in bowel movements. States this feels different than diverticulitis she had the past which was more anterior. States she really does not have many other comorbidities. Related Data Home Medications ?Medication ?Instructions ?Recorded ?Confirmed linaclotide 290 mcg capsule 290 mcg PO DAILY 10/01/23 03/25/25 (Linzess) sucralfate 1 gram tablet (Carafate) 1 g PO QACHS PRN 09/18/24 03/25/25 esomeprazole magnesium 20 mg 20 mg PO DAILY 12/15/24 03/25/25 capsule,delayed release Previous Rx's ?Medication ?Instructions ?Recorded omega-3 acid ethyl esters 1 gram 1 cap PO BID 90 days #180 caps 06/05/24 capsule Synthroid 50 mcg tablet 50 mcg PO DAILY thyroid disease 07/31/24 (levothyroxine) #90 tabs methylnaltrexone 150 mg tablet 450 mg (3 x 150 mg) PO Q24H #90 11/09/24 (Relistor) tabs clopidogrel 75 mg tablet 75 mg PO DAILY Blood thinner #90 11/24/24 tabs nitrofurantoin macrocrystal 100 mg 100 mg PO BID #10 caps 12/06/24 capsule promethazine 12.5 mg tablet 12.5 mg PO TID PRN allergy 12/08/24 symptoms #14 tabs nitrofurantoin macrocrystal 100 mg 100 mg PO HS #30 caps 01/16/25 capsule alprazolam 0.5 mg tablet (Xanax) 0.5 mg PO TID PRN anxiety #90 tabs 01/21/25 metformin 500 mg tablet 500 mg PO BID #60 tabs 01/28/25 oxycodone 10 mg tablet 10 mg PO QID pain #120 tabs 03/10/25 duloxetine 20 mg capsule,delayed 20 mg PO DAILY #30 caps 03/25/25 release levofloxacin 750 mg tablet 750 mg PO DAILY 7 days #7 tabs 03/25/25 Allergies Allergy/AdvReac Type Severity Reaction Status Date / Time cefaclor (From [facility]) Allergy Mild Rash Verified 03/25/25 13:37 codeine Allergy Mild Rash Verified 03/25/25 13:37 Sulfa (Sulfonamide Allergy Mild Rash Verified 03/25/25 13:37 Antibiotics) [facility] Disclaimer: The information contained in this section may have been updated after the patient was seen, as this information can be updated by other users. Medical History Tobacco use Breast cancer screening by mammogram Encounter for pre-operative cardiovascular clearance Abnormal electrocardiogram [ECG] [EKG] Hyperlipidemia Hypothyroidism CAD (coronary artery disease) Anxiety COPD (chronic obstructive pulmonary disease) Panic disorder Surgical History Hx of appendectomy History of hysterectomy History of cholecystectomy History of thyroidectomy Family History Other No significant family history Social History Smoking Status: Current every day smoker tobacco type: cigarettes quit status: considering quitting alcohol intake: never substance use type: denies use current occupational status: retired Travel in the last 8 weeks?: None Have you lived/traveled outside US in past 30 days?: No Contact w/someone who lives/traveled outside US past 30 days?: No Exposure to someone with infectious disease in past 14 days?: No Do you have a fever (greater than 100.4 F or 38 C)?: No Have you tested positive for COVID-19?: No Exposed to someone with COVID-19 in past 14 days?: No Do you have a sore throat?: No Do you have a cough?: No Do you have any weakness?: No Do you have any diarrhea?: No Are you experiencing any unusual bleeding?: No Do you have any muscle aches/pain?: No Do you have any abdominal pain?: No Are you experiencing loss of taste or smell?: No Other Medical History Have you received the Flu Vaccine for this season: Yes Have you received the Pneumonia Vaccine: Yes ROS Obtained: Yes All systems reviewed & no additional complaints except as documented Physical Exam General General appearance: alert Respiratory Respiratory exam: Present normal lung sounds bilaterally Cardiovascular Cardiovascular exam: Present regular rate Abdominal Exam Abdominal exam: Present soft, distention and tenderness (Left upper quadrant left flank and left CVA tenderness no rebound or guarding) Neurological Exam Neurological exam: Present alert and oriented X3 Medical Decision Making Medical Records Screening: Per USPSTF and CDC recommendations, given the prevalence of disease in our region, it is our hospital?s policy to screen for HIV and viral Hepatitis for all patients aged 18 and over and those with ongoing risk factors. Marvin Inquiry Pt receiving controlled substance: No Vital Signs: 03/25/25 14:51 03/25/25 16:32 03/25/25 17:12 Temperature 98.1 F 98.4 F Temperature Source Oral Oral Pulse Rate 79 70 Pulse Rate [Right] 73 Respiratory Rate 16 16 18 Blood Pressure 135/86 113/64 Blood Pressure [Right Arm] 124/77 Blood Pressure Mean [Right Arm] 92 Blood Pressure Source Automatic Cuff Automatic Cuff Blood Pressure Source [Right Arm] Automatic Cuff Blood Pressure Position Sitting Sitting Blood Pressure Position [Right Arm] Sitting 02 Sat by Pulse Oximetry 95 97 92 L Oxygen Delivery Method Room Air Room Air Room Air 03/25/25 18:44 Temperature Temperature Source Pulse Rate 73 Pulse Rate [Right] Respiratory Rate Blood Pressure 122/61 Blood Pressure [Right Arm] Blood Pressure Mean [Right Arm] Blood Pressure Source Blood Pressure Source [Right Arm] Blood Pressure Position Blood Pressure Position [Right Arm] 02 Sat by Pulse Oximetry 96 Oxygen Delivery Method Room Air Lab Data Lab results reviewed: Yes I reviewed the patient's lab results. Lab Results 03/25/25 14:55: Urine Color Yellow, Urine Appearance Clear, Urine pH 6.0, Ur Specific [place] 1.031 H, Urine Protein Trace, Urine Glucose (UA) Negative, Urine Ketones Negative, Urine Blood Trace-i, Urine Nitrate Positive A, Urine Bilirubin Negative, Urine Urobilinogen 1.0, Ur Leukocyte Esterase 3+ A, Urine RBC Occasional, Urine WBC Tntc, Ur Squamous Epith Cells None, Urine Bacteria 4+ 03/25/25 16:53: WBC 5.4, RBC 3.49 L, Hgb 10.7 L, Hct 32.5 L, MCV 93.1, MCH 30.7, MCHC 32.9, RDW 13.5, Plt Count 231, MPV 9.0, Neut % (Auto) 62.7, Lymph % (Auto) 29.0, [place] % (Auto) 6.2, Eos % (Auto) 1.5, Baso % (Auto) 0.6, Neut # (Auto) 3.4, Lymph # (Auto) 1.6, [place] # (Auto) 0.3, Eos # (Auto) 0.1, Baso # (Auto) 0.0, Sodium 135 L, Potassium 3.7, Chloride 102, Carbon Dioxide 27, Anion Gap 9.7, BUN 7, Creatinine 0.70, Estimated Creat Clear 54, Estimated GFR 81, Est GFR ( Amer) 98, Glucose 106 H, Lactate 0.7, Calcium 9.4, Total Bilirubin 0.5, AST 31, ALT 12, Alkaline Phosphatase 67, Total Protein 7.3, Albumin 4.2, Globulin 3.1, Albumin/Globulin Ratio 1.4, Lipase 15 L 03/25/25 16:53 03/25/25 16:53 Orders (Tests/Meds): ED MEDICATIONS Generic Name Dose Route Start Last Admin Trade Name Freq PRN Reason Stop Dose Admin Levofloxacin 750 mg 03/25/25 19:27 Levofloxacin 750 Mg Tablet PO 03/25/25 19:28 ONCE ONE Discontinued Medications Generic Name Dose Route Start Last Admin Trade Name Freq PRN Reason Stop Dose Admin Lactated Ringer's 1,000 mls @ 999 mls/hr 03/25/25 16:45 03/25/25 17:05 Lactated Ringer's 1000 Ml Bag IV 03/25/25 17:45 999 mls/hr .Q1H1M FANTA Administration Iopamidol 75 ml 03/25/25 18:29 03/25/25 18:30 Iopamidol-370 (76%);100ml Bottle IV 03/25/25 18:30 75 ml ONCE ONE Administration Morphine Sulfate 4 mg 03/25/25 16:36 03/25/25 17:05 Morphine 4mg/Ml Syringe IV 03/25/25 16:37 4 mg ONCE ONE Administration Ondansetron HCl 4 mg 03/25/25 16:36 03/25/25 17:05 Ondansetron 4mg/2ml Vial IV 03/25/25 16:37 4 mg ONCE ONE Administration Sodium Chloride 10 ml 03/25/25 18:29 03/25/25 18:30 Sodium Chloride 0.9% 10ml Syr (Rad Only) IV 03/25/25 18:30 10 ml ONCE ONE Administration ORDERS Category Date Time Status CT abdomen pelvis w con Stat Cat Scan 03/25/25 16:36 Completed CBC w/Auto Diff [Complete Blood Count Auto Diff] Stat Lab 03/25/25 16:53 Completed CMP [Comprehensive Metabolic Panel] Stat Lab 03/25/25 16:53 Completed Lactic Acid Stat Lab 03/25/25 16:53 Completed Lipase Stat Lab 03/25/25 16:53 Completed UA [Urinalysis and Microscopic] Stat Lab 03/25/25 16:36 Ordered Urinalysis and Microscopic Stat Lab 03/25/25 14:55 Completed Urine Culture Stat Micro 03/25/25 14:55 Received Medical Decision Narrative: 74-year-old presenting today with urinary symptoms as well as left upper quadrant left flank and left CVA pain this could be a urinary tract infection a infected kidney stone diverticulitis colitis mesenteric ischemia etc. Will get a contrasted CT scan addition to urinalysis and labs to evaluate this further. IV fluids pain medicine nausea medicine have been administered and we will reassess after this workup is complete. Reassessment 7:28 PM patient remained stable labs demonstrate nitrite positive urine with the CVA tenderness we will treat this clinically as pyelonephritis also on CT scan which I personally interpreted there is edema in the left upper quadrant of the soft tissues consistent with panniculitis likely localized spread of the infection. Levaquin was given as she has a cephalosporin and the sulfa allergy despite its side effects profile seems to be the only reasonable alternative in the setting of pyelonephritis. First dose given in the emergency department patient sent home with a prescription and return precautions strictly emphasized if she gets worse to return to the emergency department. Critical Care Critical Care Time Critical Care Time: Yes Attestation: On 03/25/25, the high probability of a clinically significant, sudden or life threatening deterioration of the following system(s) required my full and direct attention, intervention and personal management. The time I documented below is in addition to time spent performing reported procedures but includes the following listed in this critical care notation. Total Time Total Critical Care Time: 35
[2025-03-25 16:52] LABS: Specific Gravity, Urine 1.031 (1.005-1.030)
[2025-03-25 16:53] LABS: Bacteria,Urine 4+ /lpf; RBC,Urine Occasional #/hpf (0-3); WBC,Urine TNTC #/hpf (0-3)
[2025-03-25 17:02] LABS: Hematocrit 32.5 % (37.0-47.0); Hemoglobin 10.7 g/dL (12.2-16.2); Immature Granulocytes % 0 %; Mean Corpuscular HGB Conc 32.9 g/dL (31.8-35.4); Mean Corpuscular Hemoglobin 30.7 pg (27.0-31.2); Mean Corpuscular Volume 93.1 fl (81-99); Nucleated Red Blood Cells % 0 %; Platelet Count 231 K/mm3 (142-424); Red Blood Count 3.49 M/mm3 (4.20-5.40); Red Cell Distribution Width-SD 45.4 fL; White Blood Count 5.4 K/mm3 (4.8-10.8)
[2025-03-25] MEDS: MORPHINE 4MG/ML SYRINGE 4 MG IV (17:05)
[2025-03-25] MEDS: ONDANSETRON 4MG/2ML VIAL 4 MG IV (17:05)
[2025-03-25] MEDS: LACTATED RINGERS 1000ML 1,000 ML 999 ML IV (17:05)
[2025-03-25 17:12] VITALS: BP 113/64; PULSE 70; RESP 18; TEMP 36.9; O2SAT 92
[2025-03-25 18:12] LABS: Alanine Aminotransferase 12 U/L (12-78); Albumin Level 4.2 g/dl (3.5-5.0); Albumin/Globulin Ratio 1.4 (1.1-1.8); Alkaline Phosphatase 67 U/L (38-126); Anion Gap 9.7 mEq/L (5-15); Aspartate Amino Transferase 31 U/L (14-36); Bilirubin,Total 0.5 mg/dl (0.2-1.3); Blood Urea Nitrogen 7 mg/dl (7-17); Calcium 9.4 mg/dl (8.4-10.2); Carbon Dioxide 27 mmol/L (22.0-30.0); Chloride 102 mmol/L (98-107); Creatinine Clearance Estimated 54 mL/min (50-200); Creatinine,Serum 0.70 mg/dl (0.52-1.04); Estimated Glomerular Filt Rate 81 ml/min (>60); GFR (African American) 98 ML/MIN (>60); Globulin 3.1 g/dL (1.3-3.2); Glucose 106 mg/dl (74-100); Lipase 15 U/L (23-300); Potassium 3.7 mmoL/L (3.5-5.1); Sodium 135 mmol/L (136-145); Total Protein,Serum 7.3 g/dl (6.3-8.2)
[2025-03-25] MEDS: IOPAMIDOL-370 (76%);100ML BOTTLE 75 ML IV (18:30)
[2025-03-25] MEDS: SODIUM CHLORIDE 0.9% 10ML SYR (RAD ONLY) 10 ML IV (18:30)
[2025-03-25 18:44] VITALS: BP 122/61; PULSE 73; O2SAT 96
[2025-03-25 19:51] VITALS: BP 132/60; PULSE 71; RESP 18; TEMP 36.9; O2SAT 100
--- NOTE | 2025-03-27 09:07 | PC.NURSE ---
PRELIM URINE CULTURE RESULTS DISCUSSED WITH . NO CHANGE NEEDED TO TREATMENT PLAN
--- NOTE | 2025-03-29 09:52 | PC.NURSE ---
FINAL URINE CULTURE DISCUSSED WITH . LEVOFLOXACIN IS RESISTANT TO THE POSITIVE BACTERIA. I CALLED AND DISCUSSED WITH THE PT ABOUT CEFDINIR. SHE STATES SHE DOES NOT THINK SHE IS ALLERGIC. CEFACLOR GIVES HER A RASH. PREVIOUSLY PER MAR/PT SHE HAS HAD IV ROCEPHIN WITHOUT REACTION. PT ALSO REPORTS SHE IS STILL HAVING NAUSEA. I SPOKE WITH , HE IS GOING TO CALL IN CEFDINIR AND ZOFRAN FOR THE PT TO [facility]. I RELAYED THAT TO THE PT. I INSTRUCTED HER TO STOP THE LEVOFLOXACIN AND START THE CEFDINIR SOON SHES ABLE TO PICK IT UP. PT AND HER BROTHER VERBALIZED THEIR UNDERSTANDING.
--- NOTE | 2025-03-29 16:20 | PC.NURSE ---
[facility] pharmacy called to question the cefdinir order. I explained the conversation with and he gave the go ahead to fill it with strict instructions to return to the ER if there are any signs/symptoms of an allergic reaction. Pt verbalized her understanding while advised on the phone earlier today.
== END 2025-03-25 19:54 | disposition home or self-care (01) ==
PROVIDERS: Student in an Organized Health Care Education/Training Program; Emergency Provider Student in an Organized Health Care Education/Training Program; PCP Family Medicine
DX: N10 Acute pyelonephritis (principal); R10.A2 Flank pain, left side; R10.12 Left upper quadrant pain; K65.4 Sclerosing mesenteritis; F17.210 Nicotine dependence, cigarettes, uncomplicated; B96.20 Unspecified Escherichia coli [E. coli] as the cause of diseases classified elsewhere
CPT/HCPCS: 74177; 80053; 81001; 83605; 83690; 85025; 87086; 87088; 87186; 96361; 96374; 96375; 99285; J2270; J2405; J7120; Q9967

== ENCOUNTER 2025-04-09 16:59 | Observation (INO) | payer MEDICARE, SELFPAY ==
[2025-04-09] VITALS (9 sets, daily range): BP systolic 111–139; BP diastolic 60–84; PULSE 53–72; RESP 13–20; TEMP 36.7–36.9; O2SAT 96–100; BMI 25.4; BMI 24.7
--- NOTE | 2025-04-09 16:55 | PC.NURSE ---
Labs drawn by EMS at 1615, sent to the lab
--- NOTE | 2025-04-09 17:01 | ECG_ITS ---
APPROVED REPORT Exam: Resting ECG HR:68 bpm ECG Measurements Heart Rate 68 AXES MN 158 P 33 QRSd 89 QRS 38 QT 426 T 57 QTc 444 Conclusion SINUS RHYTHM NORMAL ECG Electronically signed by : GENNARO HADLEY, 04/17/2025 06:58:07
--- NOTE | 2025-04-09 17:36 | CT_ITS ---
PROCEDURE INFORMATION: Exam: CTA Chest With Contrast Exam date and time: 04/09/2025 6:11 PM Age: 74 years old Clinical indication: Pain; Chest pressure; Additional info: Chest pain/pressure, sudden onset, HX aneurysm TECHNIQUE: Imaging protocol: Computed tomographic angiography of the chest with contrast. Exam focused on the arteries. 3D rendering (Not supervised by radiologist): MIP and/or 3D reconstructed images were created by the technologist. Radiation optimization: All CT scans at this facility use at least one of these dose optimization techniques: automated exposure control; mA and/or kV adjustment per patient size (includes targeted exams where dose is matched to clinical indication); or iterative reconstruction. Contrast material: ISOVUE; Contrast volume: 80 ml; Contrast route: INTRAVENOUS (IV); COMPARISON: CT ANGIO ABD/PEL - TRAUMA 12/19/2024 5:04 PM FINDINGS: Pulmonary arteries: Normal. No pulmonary emboli. Aorta: Unremarkable. No aortic aneurysm. No aortic dissection. Lungs: Unremarkable. No consolidation. No masses. Pleural spaces: Unremarkable. No pneumothorax. No pleural effusion. Heart: Unremarkable. No cardiomegaly. No pericardial effusion. Coronary arteries: Three-vessel coronary artery calcifications. Lymph nodes: Unremarkable. No enlarged lymph nodes. Bones/joints: Multiple old right posterior mid and lower rib fractures. Subacute compression fracture of T12 worsening height loss from prior exam. Soft tissues: Chest wall subcutaneous tissues and musculature appear unremarkable. IMPRESSION: 1. No CT evidence for aortic dissection or aneurysm. 2. Multiple old right posterior mid and lower rib fractures. 3. Subacute compression fracture of T12 worsening height loss from prior exam.
--- NOTE | 2025-04-09 17:36 | CT_ITS ---
PROCEDURE INFORMATION: Exam: CTA Abdomen and Pelvis With Contrast Exam date and time: 04/09/2025 6:11 PM Age: 74 years old Clinical indication: Abdominal pain; Generalized; Additional info: Abdominal pain/pressure, sudden onset, HX aneurysm TECHNIQUE: Imaging protocol: Computed tomographic angiography of the abdomen and pelvis with contrast. Exam focused on the arteries. 3D rendering (Not supervised by radiologist): MIP and/or 3D reconstructed images were created by the technologist. Radiation optimization: All CT scans at this facility use at least one of these dose optimization techniques: automated exposure control; mA and/or kV adjustment per patient size (includes targeted exams where dose is matched to clinical indication); or iterative reconstruction. Contrast material: ISOVUE; Contrast volume: 80 ml; Contrast route: INTRAVENOUS (IV); COMPARISON: CT ANGIO ABD/PEL - TRAUMA 12/19/2024 5:04 PM FINDINGS: Aorta: Severe atherosclerotic calcifications of the aorta. Celiac and mesenteric arteries: No occlusion or significant stenosis. Renal arteries: No occlusion or significant stenosis. Right iliac arteries: No occlusion or significant stenosis. Left iliac arteries: No occlusion or significant stenosis. Liver: The liver appears within normal limits. Gallbladder and biliary ducts: There has been a cholecystectomy. Pancreas: The pancreas is normal. Spleen: The spleen is normal. Adrenal glands: The adrenal glands appear within normal limits. Kidneys and ureters: The kidneys are normal. Stomach and bowel: The stomach appears within normal limits. No wall thickening or inflammatory change. Appendix: No evidence of appendicitis. Intraperitoneal space: Unremarkable. No free air. No significant fluid collection. Lymph nodes: Unremarkable. No pathologically enlarged lymph nodes are identified. Urinary bladder: The bladder appears within normal limits. No wall thickening. Reproductive: There has been a hysterectomy. Bones/joints: There is a subacute appearing moderate compression fracture involving the T12 vertebral level. There are still fracture lines that are visible. This fracture has worsened from the previous CT scan. Worsening height loss. Soft tissues: Unremarkable. IMPRESSION: 1. There is a subacute appearing moderate compression fracture involving the T12 vertebral level. There are still fracture lines that are visible. This fracture has worsened from the previous CT scan. Worsening height loss. 2. No aneurysm or dissection. No evidence for stenosis or occlusion within the visualized visceral arteries.
--- NOTE | 2025-04-09 17:39 | ED_ITS ---
Discharge Plan Disposition Chief Complaint: Weakness Discharge ED Provider: Desiree Alcantar General Adult HPI General Chief complaint: Weakness Stated complaint: Chest Pain Time Seen by Provider: 04/09/25 17:25 Mode of Arrival: EMS Source of Information: Patient and EMS Description of Symptoms (Recalled from ER Triage Doc. by RN): miguel presents for chest tightness, unintentional weightloss and generalizd weakness. she does has ome SOA with the chest tightness. she has multiple complaints of back pain, right knee pain, and overall not feeling well as well. the patient states she has no active chest pain right now. History of Present Illness HPI narrative: This is a 74-year-old female with history of factor V on Plavix, splenic aneurysm, chronic urinary frequency/urethritis with bladder prolapse status post Botox injection, T12 compression fracture in February, diverticulitis, and anxiety who presents emergency department primarily for complaints of chest tightness and chest pressure. She states she was sitting on the edge of the bed experiencing acute on chronic low back pain when she began to have chest tightness. She does note a history of a splenic aneurysm and additionally reports some left flank tenderness that has been worsening recently. She describes a history of urethritis, urinary frequency, and what sounds like bladder prolapse. She has been evaluated by [facility] and urology. She is status post Botox injections and cystoscopy. She states she has been prescribed oxycodone for her bladder pain in the past which has helped. She notes a 10- month history of chronic fatigue, weakness, and 30 pound unintentional weight loss. She states she has to go to the bathroom every 2 hours and that she only sleeps 2 to 3 hours every night. She denies any current headache, neck pain, or shortness of breath. Denies any recent fever or infectious symptoms. She does note a recent history of UTI from E. coli that was resistant to an antibiotic. Not currently on any antibiotics. Related Data Home Medications ?Medication ?Instructions ?Recorded ?Confirmed linaclotide 290 mcg capsule 290 mcg PO DAILY 10/01/23 03/25/25 (Linzess) sucralfate 1 gram tablet (Carafate) 1 g PO QACHS PRN 0 09/18/24 03/25/25 esomeprazole magnesium 20 mg 20 mg PO DAILY 12/15/24 1 05/25/24 capsule,delayed release Previous Rx's ?Medication ?Instructions ?Recorded omega-3 acid ethyl esters 1 gram 1 cap PO BID 90 days #180 caps 06/05/24 capsule Synthroid 50 mcg tablet 50 mcg PO DAILY thyroid dise ase 07/31/24 (levothyroxine) #90 tabs methylnaltrexone 150 mg tablet 450 mg (3 x 150 mg) PO Q24H #90 11/09/24 (Relistor) tabs clopidogrel 75 mg tablet 75 mg PO DAILY Blood thinner #90 11/24/24 tabs nitrofurantoin macrocrystal 100 mg 100 mg PO BID #10 c aps 12/06/24 capsule promethazine 12.5 mg tablet 12.5 mg PO TID PRN allergy 12/08/24 symptoms #14 tabs nitrofurantoin macrocrystal 100 mg 100 mg PO HS #30 ca ps 01/16/25 capsule alprazolam 0.5 mg tablet (Xanax) 0.5 mg PO TID PRN anx iety #90 tabs 01/21/25 metformin 500 mg tablet 500 mg PO BID #60 tabs 01/28 oxycodone 10 mg tablet 10 mg PO QID pain #120 tabs 03/10/25 duloxetine 20 mg capsule,delayed 20 mg PO DAILY #30 ca ps 03/25/25 release levofloxacin 750 mg tablet 750 mg PO DAILY 7 days #7 t abs 03/25/25 cefdinir 300 mg capsule 300 mg PO BID UTI 7 days #14 caps 03/29/25 ondansetron 4 mg disintegrating 4 mg PO Q8H PRN nausea and 03/29/25 tablet vomiting 4 days #12 tabs Allergies Allergy/AdvReac Type Severity Reaction Status Date / Time cefaclor (From [facility]) Allergy Mild Rash Verified 03/25/25 13:37 codeine Allergy Mild Rash Verified 03/25/25 13:37 Sulfa (Sulfonamide Allergy Mild Rash Verified 03/25/25 13:37 Antibiotics) [facility] Disclaimer: The information contained in this section may have been updated after the patient was seen, as this information can be updated by other users. Medical History Tobacco use Breast cancer screening by mammogram Encounter for pre-operative cardiovascular clearance Abnormal electrocardiogram [ECG] [EKG] Hyperlipidemia Hypothyroidism CAD (coronary artery disease) Anxiety COPD (chronic obstructive pulmonary disease) Panic disorder Surgical History Hx of appendectomy History of hysterectomy History of cholecystectomy History of thyroidectomy Family History Other No significant family history Social History Smoking Status: Current some day smoker tobacco type: cigarettes quit status: considering quitting alcohol intake: never substance use type: denies use current occupational status: retired Travel in the last 8 weeks?: None Have you lived/traveled outside [place] in past 30 days?: No Contact w/someone who lives/traveled outside [place] past 30 days?: No Exposure to someone with infectious disease in past 14 days?: No Do you have a fever (greater than 100.4 F or 38 C)?: No Have you tested positive for COVID-19?: No Exposed to someone with COVID-19 in past 14 days?: No Do you have a sore throat?: No Do you have a cough?: No Do you have any weakness?: No Do you have any diarrhea?: No Are you experiencing any unusual bleeding?: No Do you have any muscle aches/pain?: No Do you have any abdominal pain?: No Are you experiencing loss of taste or smell?: No Other Medical History Have you received the Flu Vaccine for this season: Yes Have you received the Pneumonia Vaccine: Yes ROS Obtained: Yes All systems reviewed & no additional complaints except as documented Physical Exam General General appearance: alert and in no apparent distress Head Head exam: atraumatic and normocephalic Eye Eye exam: Present PERRL ENT ENT exam: Present mucous membranes moist Neck Neck exam: Present normal inspection Chest Chest inspection: Present symmetric chest wall rise; Absent tenderness Respiratory Respiratory exam: Present normal lung sounds bilaterally; Absent respiratory distress, wheezes or accessory muscle use Cardiovascular Cardiovascular exam: Present regular rate and normal rhythm Abdominal Exam Abdominal exam: Present soft and tenderness (Tenderness to palpation in the left upper, left lower, and suprapubic regions. No guarding. Abdomen is otherwise soft. The patient does additionally have left CVA tenderness. No overlying skin changes.); Absent distention Extremities Exam Extremities exam: Present normal inspection; Absent tenderness Neurological Exam Neurological exam: Present alert, oriented X3 and other (Sensation intact to the lower extremities, strength 5 out of 5 and symmetric in the bilateral lower extremities.) Psychiatric Psychiatric exam: Present normal affect Skin Skin exam: Present warm and dry Medical Decision Making Medical Records Screening: Per USPSTF and CDC recommendations, given the prevalence of disease in our region, it is our hospital?s policy to screen for HIV and viral Hepatitis for all patients aged 18 and over and those with ongoing risk factors. Marvin Inquiry Pt receiving controlled substance: Yes Marvin was queried for this patient: No Risks and benefits of using a controlled substance: were discussed with pt by me Vital Signs: 04/09/25 16:58 Temperature 98.4 F Temperature Source Oral Pulse Rate [Right Radial] 72 Respiratory Rate 20 Blood Pressure [Right Arm] 111/60 Blood Pressure Mean [Right Arm] 77 Blood Pressure Source [Right Arm] Automatic Cuff Blood Pressure Position [Right Arm] Sitting 02 Sat by Pulse Oximetry 99 Oxygen Delivery Method Room Air Lab Data Lab Results 04/09/25 16:15: WBC 7.3, RBC 4.21, Hgb 12.5, Hct 38.3, MCV 91.0, MCH 29.7, MCHC 32.6, RDW 13.4, Plt Count 329, MPV 9.3, Neut % (Auto) 64.3, Lymph % (Auto) 28.5, [place] % (Auto) 4.9, Eos % (Auto) 1.2, Baso % (Auto) 1.0, Neut # (Auto) 4.7, Lymph # (Auto) 2.1, [place] # (Auto) 0.4, Eos # (Auto) 0.1, Baso # (Auto) 0.1, Sodium 131 L, Potassium 3.4 L, Chloride 95 L, Carbon Dioxide 25, Anion Gap 14.4, BUN 9, Creatinine 0.80, Estimated Creat Clear 54, Estimated GFR 70, Est GFR ( Amer) 84, Glucose 130 H, Calcium 10.2, Total Bilirubin 0.7, AST 34, ALT 13, Alkaline Phosphatase 66, Troponin I < 0.01, Total Protein 10.1 H D, Albumin 5.4 H, Globulin 4.7 H, Albumin/Globulin Ratio 1.1, Lipase 73 04/09/25 18:33: Urine Color Yellow, Urine Appearance Clear, Urine pH 7.0, Ur Specific [employer] 1.010, Urine Protein Trace, Urine Glucose (UA) Negative, Urine Ketones Negative, Urine Blood Trace-i, Urine Nitrate Negative, Urine Bilirubin Negative, Urine Urobilinogen 0.2, Ur Leukocyte Esterase Trace, Urine RBC 5-10, Urine WBC Tntc, Ur Squamous Epith Cells 5-10, Urine Bacteria Trace, Urine Mucus 1+ 04/09/25 16:15 04/09/25 16:15 Orders (Tests/Meds): ED MEDICATIONS Discontinued Medications Generic Name Dose Route Start Last Admin Trade Name Freq PRN Reason Stop Dose Admin Acetaminophen 1,000 mg 04/09/25 17:36 04/09/25 17:58 Acetaminophen 1,000mg/100ml Vial IV 04/09/25 17:37 1,000 mg ONCE ONE Administration Sodium Chloride 1,000 mls @ 999 mls/hr 04/09/25 17:36 04/09/25 20:06 Sod Chlor 0.9% 1000ml Bag IV 04/09/25 18:36 Infused .Q1H1M ONE Infusion Ceftriaxone Sodium 1 gm/ 50 mls @ 100 mls/hr 04/09/25 20:21 04/09/25 20:45 Sodium Chloride IV 04/09/25 20:50 100 mls/hr Q24H ONE Administration Iopamidol 80 ml 04/09/25 18:12 04/09/25 18:13 Iopamidol-370 (76%);100ml Bottle IV 04/09/25 18:13 80 ml ONCE ONE Administration Lorazepam 0.5 mg 04/09/25 20:25 04/09/25 20:45 Lorazepam 0.5mg Tablet PO 04/09/25 20:26 0.5 mg ONCE ONE Administration Oxycodone HCl 5 mg 04/09/25 20:25 04/09/25 20:45 Oxycodone 5mg Immediate Release Tablet PO 04/09/25 20:26 5 mg ONCE ONE Administration Sodium Chloride 10 ml 04/09/25 18:12 04/09/25 18:13 Sodium Chloride 0.9% 10ml Syr (Rad Only) IV 04/09/25 18:13 10 ml ONCE ONE Administration Sodium Chloride 50 ml 04/09/25 18:12 04/09/25 18:13 0.9 % Sodium Chloride 50 Ml Vial IV 04/09/25 18:13 50 ml ONCE ONE Administration ORDERS Category Date Time Status CT angio abdomen pelvis Stat Cat Scan 04/09/25 17:36 Completed CTA Chest [CT angio chest - dissection] Stat Cat Scan 04/09/25 17:36 Completed CBC w/Auto Diff [Complete Blood Count Auto Diff] Stat Lab 04/09/25 16:15 Completed CMP [Comprehensive Metabolic Panel] Stat Lab 04/09/25 16:15 Completed Lactate Venous Stat Lab 04/09/25 17:38 Ordered Lipase Stat Lab 04/09/25 16:15 Completed Trop I [Troponin I] Stat Lab 04/09/25 16:15 Completed Troponin I Q3H Lab 04/09/25 20:45 Ordered Troponin I Q3H Lab 04/09/25 23:45 Ordered Urinalysis and Microscopic Stat Lab 04/09/25 18:33 Completed Urine Culture Stat Micro 04/09/25 18:33 Received Urine Culture(cathed specimen) Stat Micro 04/09/25 18:33 Received ECG Data Tracing #1: EKG shows normal sinus rhythm at a rate of 68. Normal CO, QRS, and QTc intervals. Normal axis. No acute ST elevations or signs of acute subendocardial or transmural ischemia. Medical Decision Narrative: In summary, this is a 74y/o female presenting the emergency department for acute chest pain/pressure in addition to multiple chronic complaints including dysuria, suprapubic tenderness, urinary frequency. Differential diagnosis includes but is not limited to: Anxiety, musculoskeletal chest pain, costochondritis, ACS, aortic pathology, splenic aneurysm, UTI, urethritis, bladder prolapse, diverticulitis, constipation On my initial assessment, the patient is hemodynamically stable in no acute distress. Physical exam is notable for moderate abdominal pain in the left upper, left lower, and left flank regions. She is not peritonitic and abdomen remains soft. Initial workup will be focused on evaluating for any acute intrathoracic or intra-abdominal pathology in addition to ruling out ACS. ECG personally interpreted as listed above with no acute ischemic changes. Initial troponin less than 0.01. Labs personally interpreted which demonstrate no leukocytosis or anemia. Platelet count within normal limits. CMP shows mild hyponatremia and mild hypokalemia. These are likely not clinically contributing to today's presentation. No ROD. No transaminitis. Normal total bilirubin. Lipase within normal limits. Urinalysis shows too numerous to count white blood cells with only 5-10 squamous epithelial cells. There is trace bacteria with negative nitrite. Considering patient's reports of dysuria, we will treat with Rocephin. I reviewed her previous culture data which most recently showed that she grew E. coli sensitive to Rocephin. CT personally interpreted which demonstrate interval worsening of her T12 compression fracture. No significant retropulsion of fragments. She is neurologically intact on exam. On reassessment, patient reports no improvement in her pain after IV Tylenol. She is forthcoming with me about her concern for opioid addiction and feels that she is experiencing symptoms of opioid withdrawal. She had previously been taking 10 mg of oxycodone 4 times daily, occasionally more. She has been out of this medication recently, stating she is unable to obtain a refill from her outpatient provider. She becomes very tearful, stating that she is addicted to opiates and needs help. We also discussed that her family members are very busy at home and unable to provide appropriate care for her. She is agreeable to hospital admission for diagnosis of UTI, T12 compression fracture, and opioid withdrawal. She was given 5 mg of oxycodone in addition to 0.5 mg of oral Ativan here in the emergency department. On medical record review, it appears she has struggled with benzodiazepine abuse in the past? An interactive discussion was had with hospital medicine regarding admission, they will admit patient to their service. Critical Care Critical Care Time Critical Care Time: No
[2025-04-09 17:45] LABS: Hematocrit 38.3 % (37.0-47.0); Hemoglobin 12.5 g/dL (12.2-16.2); Immature Granulocytes % 0.1 %; Mean Corpuscular HGB Conc 32.6 g/dL (31.8-35.4); Mean Corpuscular Hemoglobin 29.7 pg (27.0-31.2); Mean Corpuscular Volume 91.0 fl (81-99); Nucleated Red Blood Cells % 0 %; Platelet Count 329 K/mm3 (142-424); Red Blood Count 4.21 M/mm3 (4.20-5.40); Red Cell Distribution Width-SD 44.9 fL; White Blood Count 7.3 K/mm3 (4.8-10.8)
[2025-04-09 17:50] LABS: Alanine Aminotransferase 13 U/L (12-78); Albumin Level 5.4 g/dl (3.5-5.0); Albumin/Globulin Ratio 1.1 (1.1-1.8); Alkaline Phosphatase 66 U/L (38-126); Anion Gap 14.4 mEq/L (5-15); Aspartate Amino Transferase 34 U/L (14-36); Bilirubin,Total 0.7 mg/dl (0.2-1.3); Blood Urea Nitrogen 9 mg/dl (7-17); Calcium 10.2 mg/dl (8.4-10.2); Carbon Dioxide 25 mmol/L (22.0-30.0); Chloride 95 mmol/L (98-107); Creatinine Clearance Estimated 54 mL/min (50-200); Creatinine,Serum 0.80 mg/dl (0.52-1.04); Estimated Glomerular Filt Rate 70 ml/min (>60); GFR (African American) 84 ML/MIN (>60); Globulin 4.7 g/dL (1.3-3.2); Glucose 130 mg/dl (74-100); Lipase 73 U/L (23-300); Potassium 3.4 mmoL/L (3.5-5.1); Sodium 131 mmol/L (136-145); Total Protein,Serum 10.1 g/dl (6.3-8.2)
--- NOTE | 2025-04-09 17:53 | PC.NURSE ---
purewick applied to patient to try to obtain urine specimen
[2025-04-09] MEDS: ACETAMINOPHEN 1,000MG/100ML VIAL 1000 MG IV (17:58)
[2025-04-09] MEDS: 0.9 % SODIUM CHLORIDE 1000ML 1,000 ML 999 ML IV (17:58)
[2025-04-09 18:06] LABS: Troponin I < 0.01 ng/ml (0.00-0.034)
[2025-04-09] MEDS: SODIUM CHLORIDE 0.9% 10ML SYR (RAD ONLY) 10 ML IV (18:13)
[2025-04-09] MEDS: IOPAMIDOL-370 (76%);100ML BOTTLE 80 ML IV (18:13)
[2025-04-09] MEDS: 0.9 % SODIUM CHLORIDE 50 ML VIAL IV (18:13)
[2025-04-09 18:44] LABS: Bilirubin,Urine Negative (Negative); Color,Urine YELLOW (Yellow); Glucose,Urine (UA) Negative (Negative); Ketones,Urine Negative (Negative); Leukocyte Esterase,Urine TRACE (Negative); PH,Urine 7.0 (5.0-8.5); Protein,Urine TRACE (Negative); Specific Gravity, Urine 1.010 (1.005-1.030); Urobilinogen,Urine 0.2 EU/dl (0.2)
[2025-04-09 18:46] LABS: Microscopic, Urine URINE MICROSCOPIC (MICROSCOPIC)
[2025-04-09 18:58] LABS: Bacteria,Urine Trace /lpf; Mucus,Urine 1+ /lpf; WBC,Urine TNTC #/hpf (0-3)
--- NOTE | 2025-04-09 20:37 | PC.NURSE ---
called HS about admission
[2025-04-09] MEDS: OXYCODONE 5MG IMMEDIATE RELEASE TABLET 5 MG PO (20:45)
--- NOTE | 2025-04-09 20:57 | PC.NURSE ---
lab notified that second trop was sent
--- NOTE | 2025-04-09 21:09 | PC.NURSE ---
report called to Bisi HAMMER
--- NOTE | 2025-04-09 21:22 | P.HP_ITS ---
<Statement entered by Mohsen Rodriguez MD - 04/14/25 15:57> Agree with plan of care as outlined by the [facility]. History of Present Illness *Admission Date: 04/09/25 *Reason for visit:: Chest tightness/chest pain *History of present illness: This is a 74-year-old female who has a past medical history significant for factor V Leiden's, splenic aneurysm, chronic urinary tract infection, bladder prolapse, T12 compression fracture, diverticulitis, panic att acks, anxiety, diabetes, hyperlipidemia, hypothyroidism, coronary artery disease, and COPD who presents with chest pain/chest pressure and back pain. Due to patient's symptoms, she presented to the emergency room for evaluation. While in the emergency room, CTA of the chest revealed negative scan for aortic aneurysm/aortic dissection, multiple old right posterior mid and lower rib fractures, and subacute compression fracture of T12 and worsening height loss from prior exam. CT scan of the abdomen pelvis revealed subacute appearing moderate compression fracture of T12, no aneurysm or dissection. EKG revealed a sinus rhythm, QTc of 441, normal axis, and negative STEMI. Patient admitted to ER provider that she has an addiction to opioids and is currently withdrawing. Patient has no family to help, so she has been admitted for further management. During my evaluation of the patient, patient states she has been on chronic opioids since her back pain started. She reports her last administration of opioids was 2 days prior to . She states over the last 48 to 72 hours she has been experiencing shakes, tremors, anxiety, and overall not feeling well. She also mentions that she has been having some jerking. Patient reports that she has been treated multiple times over the last year for urinary tract infection. She reports being on 2 different antibiotics without any improvement of her symptomology. Review of EMR shows she has grown E. coli that was not pansensitive. Patient also admits that she is taking Xanax 0.5 mg 3 times daily panic attacks. Patient reports that her children has preceded her in -all 3. Patient recently had a provocative workup that showed no evidence of fixed or reversible perfusion and her EF at that time was 53% this was performed in 2023. Patient was denying any chest pain, lightheadedness, dizziness, PND, orthopnea, nausea, vomiting, shortness of breath, or dyspnea. She did have uncontrollable tremors during my evaluation. Additional pertinent labs obtained include a INR 1.13, sodium 131, potassium of 3.4, chloride of 95, blood glucose 130, total protein of 10.1, albumin 5.4, and urinalysis revealed white blood cells too numerous to count. It is worth mentioning patient states she had a 30 pound unintentional weight loss. [facility] Disclaimer: The information contained in this section may have been updated after the patient was seen, as this information can be updated by other users. Medical History Tobacco use Breast cancer screening by mammogram Encounter for pre-operative cardiovascular clearance Abnormal electrocardiogram [ECG] [EKG] Hyperlipidemia Hypothyroidism CAD (coronary artery disease) Anxiety COPD (chronic obstructive pulmonary disease) Panic disorder Surgical History Hx of appendectomy History of hysterectomy History of cholecystectomy History of thyroidectomy Family History Other No significant family history Social History Smoking Status: Current some day smoker tobacco type: cigarettes quit status: considering quitting alcohol intake: never substance use type: denies use current occupational status: retired Travel in the last 8 weeks?: None Have you lived/traveled outside [place] in past 30 days?: No Contact w/someone who lives/traveled outside US past 30 days?: No Exposure to someone with infectious disease in past 14 days?: No Do you have a fever (greater than 100.4 F or 38 C)?: No Have you tested positive for COVID-19?: No Exposed to someone with COVID-19 in past 14 days?: No Do you have a sore throat?: No Do you have a cough?: No Do you have any weakness?: No Do you have any diarrhea?: No Are you experiencing any unusual bleeding?: No Do you have any muscle aches/pain?: No Do you have any abdominal pain?: No Are you experiencing loss of taste or smell?: No Other Medical History Have you received the Flu Vaccine for this season: Yes Have you received the Pneumonia Vaccine: Yes Review of Systems Review of Systems Review of systems:: pertinent systems reviewed and negative unless documented below Constitutional Constitutional: Reports anorexia, Reports poor appetite, Reports lethargy and Reports weight loss Eyes Eyes: Reports system reviewed and no additional complaints, except as documented ENT Ears, Nose, Mouth, and Throat: Reports system reviewed and no additional complaints, except as documented *Cardiovascular Cardiovascular: Reports chest pain *Respiratory Respiratory: Reports system reviewed and no additional complaints, except as documented *Gastrointestinal Gastrointestinal: Reports system reviewed and no additional complaints, except as documented *Genitourinary Genitourinary: Reports dysuria *Musculoskeletal Musculoskeletal: Reports muscle weakness Integumentary/Breasts Skin/Breast: Reports system reviewed and no additional complaints, except as documented *Neurologic Neurologic: Reports system reviewed and no additional complaints, except as documented Psychiatric Psychiatric: Reports system reviewed and no additional complaints, except as documented Endocrine Endocrine: Reports system reviewed and no additional complaints, except as documented Hematologic/Lymphatic Hematologic/Lymphatic: Reports system reviewed and no additional complaints, except as documented Allergic/Immunologic Allergic/Immunologic: Reports system reviewed and no additional complaints, except as documented Meds Home Medications and Allergies Home Medications ?Medication ?Instructions ?Recorded ?Confirmed ?Type linaclotide 290 mcg capsule 290 mcg PO DAILY 10/01/23 03/25/25 History (Linzess) omega-3 acid ethyl esters 1 gram 1 cap PO BID 90 days #180 caps 06/05/24 03/25/25 Rx capsule Synthroid 50 mcg tablet 50 mcg PO DAILY thyroid dise ase 07/31/24 03/25/25 Rx (levothyroxine) #90 tabs sucralfate 1 gram tablet (Carafate) 1 g PO QACHS PRN 0 09/18/24 03/25/25 History methylnaltrexone 150 mg tablet 450 mg (3 x 150 mg) PO Q24H #90 11/09/24 03/25/25 Rx (Relistor) tabs clopidogrel 75 mg tablet 75 mg PO DAILY Blood thinner #90 11/24/24 03/25/25 Rx tabs nitrofurantoin macrocrystal 100 mg 100 mg PO BID #10 c aps 12/06/24 03/25/25 Rx capsule promethazine 12.5 mg tablet 12.5 mg PO TID PRN allergy 12/08/24 03/25/25 Rx symptoms #14 tabs esomeprazole magnesium 20 mg 20 mg PO DAILY 12/15/24 1 05/25/24 History capsule,delayed release nitrofurantoin macrocrystal 100 mg 100 mg PO HS #30 ca ps 01/16/25 03/25/25 Rx capsule alprazolam 0.5 mg tablet (Xanax) 0.5 mg PO TID PRN anx iety #90 tabs 01/21/25 03/25/25 Rx metformin 500 mg tablet 500 mg PO BID #60 tabs 01/2803/25/25 Rx oxycodone 10 mg tablet 10 mg PO QID pain #120 tabs 03/10/25 03/25/25 Rx duloxetine 20 mg capsule,delayed 20 mg PO DAILY #30 ca ps 03/25/25 03/25/25 Rx release levofloxacin 750 mg tablet 750 mg PO DAILY 7 days #7 t abs 03/25/25 Rx cefdinir 300 mg capsule 300 mg PO BID UTI 7 days #14 caps 03/29/25 Rx ondansetron 4 mg disintegrating 4 mg PO Q8H PRN nausea and 03/29/25 Rx tablet vomiting 4 days #12 tabs New Prescriptions to Start Prescriptions: Allergies Allergy/AdvReac Type Severity Reaction Status Date / Time cefaclor ([facility]) Allergy Mild Rash Verified 03/25/25 13:37 codeine Allergy Mild Rash Verified 03/25/25 13:37 Sulfa (Sulfonamide Allergy Mild Rash Verified 03/25/25 13:37 Antibiotics) Exam Data for Last 24 hours Vital signs and Labs for Last 24 Hours: Temp Pulse Resp BP Pulse Ox O2 Del Method 98.4 F 61 15 134/64 100 Room Air 04/09/25 16:58 04/09/25 20:30 04/09/25 20:30 04/09/25 20:30 04/09/25 20:30 04/09/25 16:58 Laboratory Results - last 24 hr 04/09/25 16:15: WBC 7.3, RBC 4.21, Hgb 12.5, Hct 38.3, MCV 91.0, MCH 29.7, MCHC 32.6, RDW 13.4, Plt Count 329, MPV 9.3, Neut % (Auto) 64.3, Lymph % (Auto) 28.5, [place] % (Auto) 4.9, Eos % (Auto) 1.2, Baso % (Auto) 1.0, Neut # (Auto) 4.7, Lymph # (Auto) 2.1, [place] # (Auto) 0.4, Eos # (Auto) 0.1, Baso # (Auto) 0.1, Sodium 131 L, Potassium 3.4 L, Chloride 95 L, Carbon Dioxide 25, Anion Gap 14.4, BUN 9, Creatinine 0.80, Estimated Creat Clear 54, Estimated GFR 70, Est GFR ( Amer) 84, Glucose 130 H, Calcium 10.2, Total Bilirubin 0.7, AST 34, ALT 13, Alkaline Phosphatase 66, Troponin I < 0.01, Total Protein 10.1 H D, Albumin 5.4 H, Globulin 4.7 H, Albumin/Globulin Ratio 1.1, Lipase 73 04/09/25 18:33: Urine Color Yellow, Urine Appearance Clear, Urine pH 7.0, Ur Specific [place] 1.010, Urine Protein Trace, Urine Glucose (UA) Negative, Urine Ketones Negative, Urine Blood Trace-i, Urine Nitrate Negative, Urine Bilirubin Negative, Urine Urobilinogen 0.2, Ur Leukocyte Esterase Trace, Urine RBC 5-10, Urine WBC Tntc, Ur Squamous Epith Cells 5-10, Urine Bacteria Trace, Urine Mucus 1+ I & O for Last 24 hours: Intake & Output 04/06/25 04/07/25 04/08/25 04/09/25 23:59 23:59 23:59 23:59 Intake Total 1050 / 1050 Balance 1050 / 1050 Weight 71.668 kg Constitutional Constitutional: no acute distress, thin and cooperative *Routine HEENT Exam Head: Present normocephalic and atraumatic Eye: Present EOMI, PERRL and normal accommodation ENT: Present mucous membranes moist *Routine Neck Exam Neck: Present supple, full ROM and trachea midline *Routine Respiratory Exam Respiratory: Present CTA bilaterally, normal respiratory effort, able to speak in complete sentences and symmetric chest movement *Routine Cardiovascular Exam Cardiovascular: Present RRR, Normal S1 and Normal S2 *Routine Abdominal Exam Abdominal: Present soft *Routine Rectal Exam Rectal:: deferred *Routine Genitalia Exam Genitalia:: deferred *Routine Extremities Exam Extremities: Present pulses intact and normal capillary refill Routine Back/Spine/Pelvis Exam Back/Spine: Present full ROM *Routine Skin Exam Skin: Present intact, dry and warm *Routine Neurological Exam Neurological: Present alert, oriented X3, CN II-XII intact and moving all extremities Routine Psychiatric Exam Psychiatric: Present cooperative, good insight, good judgment and anxious H&P: Result Impressions 74-year-old female who presents with abdominal pain and chest pressure/chest pain most likely due to opioid withdrawal Assessment and Plan *Assessment and plan (1) Compression fracture of T12 vertebra: Status: Acute Qualifiers: Encounter type: subsequent encounter Fracture healing: with delayed healing Qualified Code(s): S22.080G - Wedge compression fracture of T11-T12 vertebra, subsequent encounter for fracture with delayed healing Category: Medical Code(s): S22.080A - Wedge compression fracture of T11-T12 vertebra, initial encounter for closed fracture (2) Opioid withdrawal: Status: Acute Category: Medical Code(s): F11.93 - Opioid use, unspecified with withdrawal (3) Opioid dependence: Status: Acute Qualifiers: Substance use status: in withdrawal Qualified Code(s): F11.23 - Opioid dependence with withdrawal Category: Medical Code(s): F11.20 - Opioid dependence, uncomplicated (4) Weakness: Status: Acute Category: Medical Code(s): R53.1 - Weakness (5) Hypokalemia: Status: Acute Category: Medical Code(s): E87.6 - Hypokalemia (6) Sterile pyuria: Status: Acute Category: Medical Code(s): R82.81 - Pyuria (7) Hyperglycemia: Status: Acute Category: Medical Code(s): R73.9 - Hyperglycemia, unspecified (8) Unintentional weight loss: Status: Acute Category: Medical Code(s): R63.4 - Abnormal weight loss Plan Assessment: Compression fracture of T12 vertebrae Weakness - This appears to be worsening - Will obtain physical therapy and Occupational Therapy consult - Patient may need outpatient evaluation by neurosurgeon - There is no acute need for surgical evaluation - Not sure if patient is a candidate for kyphoplasty or spinal fusion-but initial consultation is warranted - Will consider back brace Opioid dependency/withdrawal - Will reintroduce opioids at a lower dose - Patient does have acute on chronic back pain with heightening loss of T12 - Will continue oxycodone 5 mg p.o. every 6 hours as needed moderate to severe pain - Will give 0.25 mg of lorazepam p.o. 3 times daily as needed anxiety or withdrawal symptoms - Will speak with attending to see if patient may benefit from methadone - Patient may need outpatient pain management Hypokalemia - 20 mg of potassium x 1 -Electrolyte protocol Sterile pyuria - Will monitor patient's urine culture - Will continue to treat with 1 g Rocephin IV daily-subject to change per attending - Patient just may be colonized Hyperglycemia - Sliding scale insulin AC and at bedtime with mild scale coverage Unintentional weight loss - Will have patient evaluated by the dietitian Chest pain/chest pressure -Patient is ruling out for acute coronary syndrome - Patient's most recent stress test is reassuring - Thus far troponins are nonresponsive - More than likely patient is having chest pressure/chest pain due to withdrawal syndrome - Will consider 2D echo - Will consider tnt line supervisor consultation - Yet again though I believe symptomology is due to withdrawal Plan: Admit patient to the MedSurg unit Saline lock Case management Cardiac diet CBC/BMP daily 40 mg Lovenox subcu daily for DVT prophylax 4 mg Zofran IV push every 8 hours for nausea vomit Full code I discussed this case with attending physician Dr. Rodriguez and I look forward to more input
[2025-04-09] MEDS: POTASSIUM CHLORIDE 20MEQ TAB 20 MEQ PO (21:40)
[2025-04-09 21:46] LABS: Troponin I < 0.01 ng/ml (0.00-0.034)
[2025-04-09 22:31] LABS: POC Glucose,Bedside 93 gm/dL (70-110)
[2025-04-09] MEDS: OLANZapine 5 MG ODT TABLET SL (22:39)
[2025-04-10 01:58] LABS: Troponin I < 0.01 ng/ml (0.00-0.034)
[2025-04-10] MEDS: OXYCODONE 5MG IMMEDIATE RELEASE TABLET 5 MG PO ×4 (02:11→23:21)
[2025-04-10 04:00] VITALS: BP 128/62; PULSE 50; RESP 14; TEMP 36.4; O2SAT 98; BMI 24.8
--- NOTE | 2025-04-10 04:20 | PC.NURSE ---
Alert and oriented. Complained of back pain one time, treated per jul. No other complaints from patient. Patient has used purewick this shift, patient states she is very weak and has a difficult time walking at home. Room air. Rested well. Bed alarm on. Call light in reach.
[2025-04-10 06:27] LABS: POC Glucose,Bedside 85 gm/dL (70-110)
[2025-04-10 06:46] LABS: Hematocrit 33.1 % (37.0-47.0); Immature Granulocytes % 0.2 %; Mean Corpuscular HGB Conc 32.9 g/dL (31.8-35.4); Mean Corpuscular Hemoglobin 30.3 pg (27.0-31.2); Mean Corpuscular Volume 91.9 fl (81-99); Nucleated Red Blood Cells % 0 %; Platelet Count 264 K/mm3 (142-424); Red Blood Count 3.60 M/mm3 (4.20-5.40); Red Cell Distribution Width-SD 45.6 fL; White Blood Count 4.8 K/mm3 (4.8-10.8)
[2025-04-10 06:54] LABS: Chloride 102 mmol/L (98-107); Potassium 4.2 mmoL/L (3.5-5.1); Sodium 142 mmol/L (136-145)
[2025-04-10 06:57] LABS: Anion Gap 16.2 mEq/L (5-15); Blood Urea Nitrogen 7 mg/dl (7-17); Carbon Dioxide 28 mmol/L (22.0-30.0); Creatinine Clearance Estimated 53 mL/min (50-200); Creatinine,Serum 0.80 mg/dl (0.52-1.04); Estimated Glomerular Filt Rate 70 ml/min (>60); GFR (African American) 84 ML/MIN (>60)
[2025-04-10 06:58] LABS: Calcium 9.1 mg/dl (8.4-10.2); Glucose 80 mg/dl (74-100)
[2025-04-10 07:45] LABS: Hemoglobin 11.1 g/dL (12.2-16.2)
[2025-04-10 08:00] VITALS: BP 115/55; PULSE 63; RESP 16; TEMP 36.4; O2SAT 95
--- NOTE | 2025-04-10 08:42 | SW/DCPLANNER ---
Addendum entered by [facility] 04/14/25 11:41: [employer] [employer] has requested a peer to peer for SNF at [facility]. Addendum entered by [facility] 04/13/25 12:49: Per Valerie juarez/ [facility] auth is still pending at this time. Addendum entered by [facility] 04/10/25 11:22: [facility] has started auth on this patient. Per MD patient is medically stable for discharge once approved SNF level of care. Addendum entered by [facility] 04/10/25 09:02: Currently no beds at [facility]. Patient is agreeable to [facility] and patient information has been faxed. Per Valerie juarez/ [facility] she does have a female bed open. Original Note: I spoke w/ this patient regarding plans once medically stable for discharge. PT/OT evaluated patient and recommended SNF level of care vs home w/ 24-7 assistance. Patient expressed an interest in placement at [facility]. Patient information will be faxed to Justin juarez/ [facility] this AM. Discharge date is unknown at this time. CM will continue to follow up.
--- NOTE | 2025-04-10 08:58 | HMH.PHAINT1 ---
Pharmacy Intervention Comments: MEDICATION RECONCILIATION COMPLETED ON PATIENT USING EXTERNAL FILL HISTORY FROM PHARMACY. -CHUCKY PETERSON, NICOLED
--- NOTE | 2025-04-10 09:20 | HMH.PHAAMS2 ---
- Antimicrobial Stewardship Review culture & sensitivity review Stewardship interventions: culture & sensitivity review Comments: URINE CX PENDING, PATIENT ON ROCEPHIN EMPIRICALLY FOR UTI.
--- NOTE | 2025-04-10 09:22 | HMH.OTEV ---
OT Evaluation Rehab OT IP Evaluation Start: 04/09/25 21:00 Freq: ONCE Status: Active Protocol: Document 04/10/25 09:12 MANUELITO (Rec: 04/10/25 09:22 MANUELITO [id number]) Rehab OT IP Assessment Subjective History Per HPI: *History of present illness: This is a 74-year-old female who has a past medical history significant for factor V Leiden's, splenic aneurysm, chronic urinary tract infection, bladder prolapse, T12 compression fracture, diverticulitis, panic attacks, anxiety, diabetes, hyperlipidemia, hypothyroidism, coronary artery disease , and COPD who presents with chest pain/chest pressure and back pain. Due to patient's symptoms, she presented to the emergency room for evaluation. While in the emergency room, CTA of the chest revealed negative scan for aortic aneurysm/aortic dissection, multiple old right posterior mid and lower rib fractures, and subacute compression fracture of T12 and worsening height loss from prior exam. CT scan of the abdomen pelvis revealed subacute appearing moderate compression fracture of T12, no aneurysm or dissection. EKG revealed a sinus rhythm, QTc of 441, normal axis, and negative STEMI. Patient admitted to ER provider that she has an addiction to opioids and is currently withdrawing. Patient has no family to help, so she has been admitted for further management. During my evaluation of the patient, patient states she has been on chronic opioids since her back pain started. She reports her last administration of opioids was 2 days prior to . She states over the last 48 to 72 hours she has been experiencing shakes, tremors, anxiety, and overall not feeling well. She also mentions that she has been having some jerking. Patient reports that she has been treated multiple times over the last year for urinary tract infection. She reports being on 2 different antibiotics without any improvement of her symptomology . Review of EMR shows she has grown E. coli that was not pansensitive. Patient also admits that she is taking Xanax 0.5 mg 3 times daily panic attacks. Patient reports that her children has preceded her in -all 3. Patient recently had a provocative workup that showed no evidence of fixed or reversible perfusion and her EF at that time was 53% this was performed in 2023. Patient was denying any chest pain, lightheadedness, dizziness, PND, orthopnea, nausea, vomiting, shortness of breath, or dyspnea. She did have uncontrollable tremors during my evaluation. Additional pertinent labs obtained include a INR 1.13, sodium 131, potassium of 3.4, chloride of 95, blood glucose 130, total protein of 10.1, albumin 5.4, and urinalysis revealed white blood cells too numerous to count. It is worth mentioning patient states she had a 30 pound unintentional weight loss. 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 Pt supine in bed when therapy entered room. Pt agreed to OT eval this AM. Pt orient x3. pt reported they live with half brother and sister in law. pt reported they live in home with 2 steps to enter home. pt reported they use a RW w/ seat and cane for FM task. pt reported they need assist with bathing but not dressing , they have grab bars in bathroom. pt reported they need assist with IADLs and still drive when needed, but uses transportation services and family. Pt agreed to FM task. Pt went from supine to EOB with SBA. Pt then completed STS with Min A. Pt then completed FM task of 10 ft with CGA and pt demo unsteady balance at times. Pt able to sit back on EOB and go to supine position with Min A. Pt reported they have regular bed at home. Pt left supine in bed with call light and all other needs within reach. Objective Patient Orientation Person,Place,Birthday Bed Mobility bed mobility-scooting,bed mobility - supine/sit Assist Level Supervision/Stand by Transfer Training Sit/Stand Transfer Assist Level Minimal x 1 (25% assist) Chair Transfer Sit to/from Ambulatory Technique Chair Transfer None Assistive Devices Lower Body Dressing Moderate Assistance Ability Decrease in Yes Endurance Rehab OT IP prob,goals,plan Problems Date of Evaluation: 04/10/25 OT IP Problems Bed Mobility,Transfers,Balance,Self care,Safety Rehab Potential Rehab Potential Good Equipment Needs Assistive Devices Rolling / Wheeled Walker Plan OT intervention Plan Bed Mobility,Transfers,Balance,Self care,Safety, Therapeutic Exercise OT Plan Frequency Daily Duration LOS Discharge Goals Bed Mobility Ability Standby Assistance Sit to Stand Chair Supervision/Stand by Transfer Ability Chair Transfer Supervision/Stand by Ability Chair Transfer Sit to/from Ambulatory Technique Chair Transfer Rolling Walker Assistive Devices Feeding Ability Assist with Tray Set Up Lower Body Dressing Standby Assistance Ability Decrease in No Endurance Discharge Plan OT Discharge Plan At this time, pt presents below baseline in occupational performance and would benefit from skilled acute OT services and interventions while admitted at [facility] in order to address decline and prevent further functional decline in occupational performance. Once medically stable and DC from [facility], pt able to DC home with OT services and 27/11 assist to improve optimal occupational performance. Eval Complexity Eval Charge Codes 15357 - Moderate Complexity PHYSICIAN CERTIFICATION: I certify the specified therapy services for Rox Whitfield are required, authorized, and reviewed every 30 days.
--- NOTE | 2025-04-10 09:59 | HMH.PTEV ---
Physical Therapy Evaluation Rehab PT IP Evaluation Start: 04/09/25 21:00 Freq: ONCE Status: Active Protocol: Document 04/10/25 09:55 CARA (Rec: 04/10/25 09:59 CARA [id number]) Subjective/History History History Per H&P: This is a 74-year-old female who has a past medical history significant for factor V Leiden's, splenic aneurysm, chronic urinary tract infection, bladder prolapse, T12 compression fracture, diverticulitis, panic attacks, anxiety, diabetes, hyperlipidemia, hypothyroidism, coronary artery disease , and COPD who presents with chest pain/chest pressure and back pain. Due to patient's symptoms, she presented to the emergency room for evaluation. While in the emergency room, CTA of the chest revealed negative scan for aortic aneurysm/aortic dissection, multiple old right posterior mid and lower rib fractures, and subacute compression fracture of T12 and worsening height loss from prior exam. CT scan of the abdomen pelvis revealed subacute appearing moderate compression fracture of T12, no aneurysm or dissection. EKG revealed a sinus rhythm, QTc of 441, normal axis, and negative STEMI. Patient admitted to ER provider that she has an addiction to opioids and is currently withdrawing. Patient has no family to help, so she has been admitted for further management. During my evaluation of the patient, patient states she has been on chronic opioids since her back pain started. She reports her last administration of opioids was 2 days prior to . She states over the last 48 to 72 hours she has been experiencing shakes, tremors, anxiety, and overall not feeling well. She also mentions that she has been having some jerking. Patient reports that she has been treated multiple times over the last year for urinary tract infection. She reports being on 2 different antibiotics without any improvement of her symptomology . Review of EMR shows she has grown E. coli that was not pansensitive. Patient also admits that she is taking Xanax 0.5 mg 3 times daily panic attacks. Patient reports that her children has preceded her in -all 3. Patient recently had a provocative workup that showed no evidence of fixed or reversible perfusion and her EF at that time was 53% this was performed in 2023. Patient was denying any chest pain, lightheadedness, dizziness, PND, orthopnea, nausea, vomiting, shortness of breath, or dyspnea. She did have uncontrollable tremors during my evaluation. Additional pertinent labs obtained include a INR 1.13, sodium 131, potassium of 3.4, chloride of 95, blood glucose 130, total protein of 10.1, albumin 5.4, and urinalysis revealed white blood cells too numerous to count. It is worth mentioning patient states she had a 30 pound unintentional weight loss. Subjective Subjective PLOF: IND with ambulation using a cane or rollator. No recent falls reported. HOME: Lives with her half RIO and SIMI in a home with 2-3 [place]. ASSIST: Family able to assist pt with mobility tasks if needed. [facility] How much help from another person do you currently need... Turning from your None back to your side while in a flat bed without using bedrails? Moving from lying on None back to sitting on the side of a flat bed without using bedrails? Moving to and from a A little bed to a chair ( including a wheelchair)? Standing up from a A little chair using your arms? (e.g., wheelchair, bedside chair) Walking in hospital A little room? Climbing 3-5 steps A little with a railing? Mobility Score 20 Mobility Level [facility] Mobility 6 Walk 10 steps or more Mobility Calculator Rehab PT IP Eval Objective Appearance Patient Behavior Appropriate,Cooperative Patient Orientation Person,Place Difficulty following none instructions Speech Pattern Clear Ambulation Patient Able to Yes Ambulate Ambulation Observation IP General Gait Wide Based Gait Pattern Observation Ambulation Distance 20 (feet) Ambulation Assistive Rolling Walker Device Ambulation Ability Contact Guard/Hand Hold Balance Ability to Arise Able, uses arms to help Sitting Balance Steady, safe Standing Balance Steady, wide stance Dynamic Sitting Good Balance Ability Dynamic Standing Fair Balance Ability Transfers Bed Transfer Ability Supervision/Stand by Sit to Stand Bed Contact Guard/Hand Hold Transfer Ability Rehab PT IP prob,goals,plan Problems Date of Evaluation: 04/10/25 PT IP Problems Bed Mobility,Transfers,Gait,Balance,Self care,Safety Rehab Potential Rehab Potential Good Equipment Needs Assistive Devices Rolling / Wheeled Walker Plan PT Intervention Plan Bed Mobility,Transfers,Gait,Balance,Self care,Safety, Therapeutic Exercise Other Intervention 1-2 times Plan PT Plan Frequency Daily Duration LOS Discharge Goals Bed Transfer Ability Independent Sit to Stand Chair Independent Transfer Ability Ambulation Assistive Rolling Walker Device Ambulation Distance 50 (feet) Discharge Plan PT Discharge Plan Initial physical therapy evaluation performed. Patient presents below baseline at this time in functional mobility, transfers, gait, and strength. Pt would benefit from skilled PT while at [facility] to prevent further functional decline and maximize safety with mobility. Pt most appropriate to d/c home with 24/7 family assistance. PT recommending home health PT services to address deficits. If pt does not have 24/7 assistance at home, pt would benefit from skilled inpatient rehab to maximize safety with mobility. Eval Complexity Eval Charge Codes 16060 - Moderate Complexity PHYSICIAN CERTIFICATION: I certify the specified therapy services for Rox Whitfield are required, authorized, and reviewed every 30 days.
--- NOTE | 2025-04-10 10:42 | SW/DCPLANNER ---
Addendum entered by Meghan Campbell 04/10/25 12:25: Patient need placement and [facility] is working with her on that. Ariane Buchanan Original Note: Spoke with patient regarding home health services once she is medically stable and ready for discharge. Patient stated that she is interested in home health and that she does not have a preference in what agency i send her information to. I will fax patient's information to [facility] and will update once i hear back if they can accept patient or not. Ariane Buchanan
[2025-04-10 11:34] VITALS: BMI 24.8
[2025-04-10 12:05] LABS: POC Glucose,Bedside 94 gm/dL (70-110)
[2025-04-10 16:00] VITALS: BP 104/57; PULSE 63; RESP 16; TEMP 36.7; O2SAT 97
[2025-04-10 17:40] LABS: POC Glucose,Bedside 105 gm/dL (70-110)
--- NOTE | 2025-04-10 17:52 | P.PN_ITS ---
Subjective *Date: 04/19/25 *Time: 23:07 Interval history: Patient feeling much better today, she states that she has more energy and decreased pain. Will continue IV ceftriaxone, oxycodone as needed. Pending placement. Exam Data for Last 24 hours Vital signs and Labs for Last 24 Hours: Temp Pulse Resp BP Pulse Ox O2 Del Method 98.1 F 63 16 104/57 L 97 Room Air 04/10/25 16:00 04/10/25 16:00 04/10/25 16:00 04/10/25 16:00 04/10/25 16:00 04/10/25 16:00 Laboratory Results - last 24 hr 04/09/25 16:15: WBC 7.3, RBC 4.21, Hgb 12.5, Hct 38.3, MCV 91.0, MCH 29.7, MCHC 32.6, RDW 13.4, Plt Count 329, MPV 9.3, Neut % (Auto) 64.3, Lymph % (Auto) 28.5, [place] % (Auto) 4.9, Eos % (Auto) 1.2, Baso % (Auto) 1.0, Neut # (Auto) 4.7, Lymph # (Auto) 2.1, [place] # (Auto) 0.4, Eos # (Auto) 0.1, Baso # (Auto) 0.1, Sodium 131 L, Potassium 3.4 L, Chloride 95 L, Carbon Dioxide 25, Anion Gap 14.4, BUN 9, Creatinine 0.80, Estimated Creat Clear 54, Estimated GFR 70, Est GFR ( Amer) 84, Glucose 130 H, Calcium 10.2, Total Bilirubin 0.7, AST 34, ALT 13, Alkaline Phosphatase 66, Troponin I < 0.01, Total Protein 10.1 H D, Albumin 5.4 H, Globulin 4.7 H, Albumin/Globulin Ratio 1.1, Lipase 73 04/09/25 18:33: Urine Color Yellow, Urine Appearance Clear, Urine pH 7.0, Ur Specific [place] 1.010, Urine Protein Trace, Urine Glucose (UA) Negative, Urine Ketones Negative, Urine Blood Trace-i, Urine Nitrate Negative, Urine Bilirubin Negative, Urine Urobilinogen 0.2, Ur Leukocyte Esterase Trace, Urine RBC 5-10, Urine WBC Tntc, Ur Squamous Epith Cells 5-10, Urine Bacteria Trace, Urine Mucus 1+ 04/09/25 20:47: Troponin I < 0.01 04/09/25 21:36: POC Glucose 93 04/10/25 00:03: Troponin I < 0.01 04/10/25 05:55: POC Glucose 85 04/10/25 06:04: WBC 4.8 D, RBC 3.60 L, Hgb 11.1 L D, Hct 33.1 L, MCV 91.9, MCH 30.3, MCHC 32.9, RDW 13.4, Plt Count 264, MPV 9.4, Neut % (Auto) 38.7, Lymph % (Auto) 48.3, [place] % (Auto) 7.9, Eos % (Auto) 3.5, Baso % (Auto) 1.4, Neut # (Auto) 1.9, Lymph # (Auto) 2.3, [place] # (Auto) 0.4, Eos # (Auto) 0.2, Baso # (Auto) 0.1, Sodium 142, Potassium 4.2 D, Chloride 102, Carbon Dioxide 28, Anion Gap 16.2 H, BUN 7, Creatinine 0.80, Estimated Creat Clear 53, Estimated GFR 70, Est GFR ( Amer) 84, Glucose 80 D, Calcium 9.1 04/10/25 11:58: POC Glucose 94 04/10/25 17:23: POC Glucose 105 I & O for Last 24 hours: Intake & Output 04/07/25 04/08/25 04/09/25 04/10/25 23:59 23:59 23:59 23:59 Intake Total 1050 / 1230 770 / 770 Output Total 4200 / 4200 Balance 1050 / 1230 -3430 / -3430 Weight 69.989 kg 70.216 kg Constitutional Constitutional: no acute distress *Routine HEENT Exam Head: Present normocephalic Eye: Present EOMI and PERRL ENT: Present mucous membranes moist *Routine Neck Exam Neck: Present supple; Absent lymphadenopathy *Routine Respiratory Exam Respiratory: Present CTA bilaterally *Routine Cardiovascular Exam Cardiovascular: Present RRR *Routine Abdominal Exam Abdominal: Present soft and normoactive bowel sounds; Absent tenderness *Routine Extremities Exam Extremities: Absent cyanosis, clubbing or edema *Routine Skin Exam Skin: Present warm; Absent rash *Routine Neurological Exam Neurological: Present alert and oriented X3 Assessment and Plan *Assessment and plan (1) Compression fracture of T12 vertebra: Status: Acute Qualifiers: Encounter type: subsequent encounter Fracture healing: with delayed healing Qualified Code(s): S22.080G - Wedge compression fracture of T11-T12 vertebra, subsequent encounter for fracture with delayed healing Category: Medical Code(s): S22.080A - Wedge compression fracture of T11-T12 vertebra, initial encounter for closed fracture (2) Opioid withdrawal: Status: Acute Category: Medical Code(s): F11.93 - Opioid use, unspecified with withdrawal (3) Opioid dependence: Status: Acute Qualifiers: Substance use status: in withdrawal Qualified Code(s): F11.23 - Opioid dependence with withdrawal Category: Medical Code(s): F11.20 - Opioid dependence, uncomplicated (4) Weakness: Status: Acute Category: Medical Code(s): R53.1 - Weakness (5) Hypokalemia: Status: Acute Category: Medical Code(s): E87.6 - Hypokalemia (6) Sterile pyuria: Status: Acute Category: Medical Code(s): R82.81 - Pyuria (7) Hyperglycemia: Status: Acute Category: Medical Code(s): R73.9 - Hyperglycemia, unspecified (8) Unintentional weight loss: Status: Acute Category: Medical Code(s): R63.4 - Abnormal weight loss Plan Rox Whitfield is a 74-year-old female who presented with chest pressure and back pain, shakes, tremors, anxiety. Of note she recently discontinued taking opioids 2 days prior to . She was admitted for recent fall with compression fracture of T12, and physical deconditioning. #UTI #Fall #Physical deconditioning ? Patient presented with progressive weakness in the setting of opioid withdrawal, chronic pain syndrome. ? PT/OT recommends SNF, case management and social work assisting with placement. ? TSH slightly high, follow-up free T4. B12, folate normal. ? Continue IV ceftriaxone for possible UTI, follow-up urine culture. #Opioid withdrawal, resolved #Bladder pain, dysuria ? Patient had been taking Percocet 10 mg every 6 hours for chronic bladder pain/dysuria. Stopped around . ? Opioid withdrawal symptoms improved after restarting oxycodone 5 mg as needed. ? She has followed up with urology, [facility], GI without a good explanation for her bladder pain/dysuria. ? PCP started oxycodone, with improvement in symptoms. #Hypothyroidism ? Continue home levothyroxine 50 mcg. Follow-up TFTs. #Type 2 diabetes ? Follow-up hemoglobin A1c. 5.9% in November 2024. ? Continue home metformin 500 mg twice daily. #Anxiety/depression ? Continue home duloxetine 20 mg daily, Xanax every 8 hours as needed. DNR/DNI DVT prophylaxis: Lovenox 40 mg
[2025-04-10 20:00] VITALS: BP 103/49; PULSE 64; RESP 16; TEMP 36.9; O2SAT 95
[2025-04-10] MEDS: OLANZapine 5 MG ODT TABLET SL (20:08)
[2025-04-10 20:23] LABS: POC Glucose,Bedside 114 gm/dL (70-110)
--- NOTE | 2025-04-11 03:34 | PC.NURSE ---
Pt is A&OX4 and has tolerated room air. She has complained of back pain once and was medicated per JUL. Purewick has remained in place. Currently resting in bed with bed alarm in place.
[2025-04-11 04:00] VITALS: BP 119/69; PULSE 60; RESP 16; TEMP 36.4; O2SAT 93; BMI 24.6
[2025-04-11] MEDS: OXYCODONE 5MG IMMEDIATE RELEASE TABLET 5 MG PO ×4 (04:51→20:20)
[2025-04-11 05:24] LABS: POC Glucose,Bedside 93 gm/dL (70-110)
[2025-04-11 07:39] LABS: Hematocrit 34.9 % (37.0-47.0); Hemoglobin 11.2 g/dL (12.2-16.2); Immature Granulocytes % 0 %; Mean Corpuscular HGB Conc 32.1 g/dL (31.8-35.4); Mean Corpuscular Hemoglobin 29.9 pg (27.0-31.2); Mean Corpuscular Volume 93.3 fl (81-99); Nucleated Red Blood Cells % 0 %; Platelet Count 274 K/mm3 (142-424); Red Blood Count 3.74 M/mm3 (4.20-5.40); Red Cell Distribution Width-SD 47.4 fL; White Blood Count 5.8 K/mm3 (4.8-10.8)
[2025-04-11 07:54] LABS: Anion Gap 13.1 mEq/L (5-15); Blood Urea Nitrogen 17 mg/dl (7-17); Calcium 9.2 mg/dl (8.4-10.2); Carbon Dioxide 24 mmol/L (22.0-30.0); Chloride 102 mmol/L (98-107); Creatinine Clearance Estimated 53 mL/min (50-200); Creatinine,Serum 0.90 mg/dl (0.52-1.04); Estimated Glomerular Filt Rate 61 ml/min (>60); GFR (African American) 74 ML/MIN (>60); Glucose 93 mg/dl (74-100); Potassium 4.1 mmoL/L (3.5-5.1); Sodium 135 mmol/L (136-145)
[2025-04-11 08:00] VITALS: BP 123/65; PULSE 64; RESP 14; TEMP 36.4; O2SAT 99
--- NOTE | 2025-04-11 13:59 | P.PN_ITS ---
Subjective *Date: 04/19/25 *Time: 23:13 Interval history: Patient doing well this morning, lying in bed comfortably does not have acute distress. Working with PT/OT, continues to require placement for weakness. Exam Data for Last 24 hours Vital signs and Labs for Last 24 Hours: Temp Pulse Resp BP Pulse Ox O2 Del Method 98.4 F 61 12 108/59 L 96 Room Air 04/12/25 08:00 04/12/25 08:00 04/12/25 08:00 04/12/25 08:00 04/12/25 08:00 04/12/25 12:59 Laboratory Results - last 24 hr 04/11/25 20:20: POC Glucose 126 H 04/12/25 06:10: POC Glucose 116 H 04/12/25 06:32: WBC 6.0, RBC 3.57 L, Hgb 10.7 L, Hct 33.0 L, MCV 92.4, MCH 30.0, MCHC 32.4, RDW 13.4, Plt Count 255, MPV 9.5, Neut % (Auto) 50.7, Lymph % (Auto) 37.2, [place] % (Auto) 7.9, Eos % (Auto) 2.8, Baso % (Auto) 1.2, Neut # (Auto) 3.0, Lymph # (Auto) 2.2, [place] # (Auto) 0.5, Eos # (Auto) 0.2, Baso # (Auto) 0.1, Sodium 132 L, Potassium 3.9, Chloride 100, Carbon Dioxide 24, Anion Gap 11.9, BUN 17, Creatinine 0.80, Estimated Creat Clear 52, Estimated GFR 70, Est GFR ( Amer) 84, Glucose 104 H, Calcium 9.1 04/12/25 11:53: POC Glucose 87 I & O for Last 24 hours: Intake & Output 04/09/25 04/10/25 04/11/25 04/12/25 23:59 23:59 23:59 23:59 Intake Total 1050 / 1230 1410 / 1410 950 / 950 170 / 170 Output Total 4550 / 4550 1600 / 1600 1100 / 1100 Balance 1050 / 1230 -3140 / -3140 -650 / -650 -930 / -930 Weight 69.989 kg 70.216 kg 69.581 kg 69.309 kg Constitutional Constitutional: no acute distress, average body habitus and cooperative *Routine HEENT Exam Head: Present normocephalic Eye: Present EOMI and PERRL ENT: Present mucous membranes moist *Routine Neck Exam Neck: Present supple; Absent lymphadenopathy *Routine Respiratory Exam Respiratory: Present prolonged expiratory phase; Absent rhonchi, wheezes or crackles *Routine Cardiovascular Exam Cardiovascular: Present RRR *Routine Abdominal Exam Abdominal: Present soft and normoactive bowel sounds; Absent tenderness *Routine Rectal Exam Patient deferred: visual exam *Routine Exam Patient deferred: external exam *Routine Extremities Exam Extremities: Absent cyanosis, clubbing or edema *Routine Skin Exam Skin: Present intact and warm; Absent rash *Routine Neurological Exam Neurological: Present alert, oriented X3 and moving all extremities; Absent altered mental status Assessment and Plan *Assessment and plan (1) Dysuria: Status: Acute Category: Medical Code(s): R30.0 - Dysuria (2) Bladder pain: Status: Acute Category: Medical Code(s): R39.89 - Other symptoms and signs involving the genitourinary system (3) Opioid withdrawal: Status: Acute Category: Medical Code(s): F11.93 - Opioid use, unspecified with withdrawal Plan Rox Whitfield is a 74-year-old female who presented with chest pressure and back pain, shakes, tremors, anxiety. Of note she recently discontinued taking opioids 2 days prior to . She was admitted for recent fall with compression fracture of T12, and physical deconditioning. #UTI #Fall #Physical deconditioning ? Patient presented with progressive weakness in the setting of opioid withdrawal, chronic pain syndrome. ? PT/OT recommends SNF, case management and social work assisting with placement. ? TSH slightly high, follow-up free T4. B12, folate normal. ? Continue IV ceftriaxone for possible UTI, follow-up urine culture. #Opioid withdrawal, resolved #Bladder pain, dysuria ? Patient had been taking Percocet 10 mg every 6 hours for chronic bladder pain/dysuria. Stopped around . ? Opioid withdrawal symptoms improved after restarting oxycodone 5 mg as needed. ? She has followed up with urology, [employer], GI without a good explanation for her bladder pain/dysuria. ? PCP started oxycodone, with improvement in symptoms. #Hypothyroidism ? Continue home levothyroxine 50 mcg. TSH slightly high at 4.96, follow-up free T4. #Type 2 diabetes ? Follow-up hemoglobin A1c. 5.9% in November 2024. ? Continue home metformin 500 mg twice daily. #Anxiety/depression ? Continue home duloxetine 20 mg daily, Xanax every 8 hours as needed. DNR/DNI DVT prophylaxis: Lovenox 40 mg
--- NOTE | 2025-04-11 14:14 | HMH.PHAAMS2 ---
- Antimicrobial Stewardship Review culture & sensitivity review Stewardship interventions: culture & sensitivity review (URINE CX-NO GROWTH)
--- NOTE | 2025-04-11 14:21 | ECG_ITS ---
APPROVED REPORT Exam: Resting ECG HR:68 bpm ECG Measurements Heart Rate 68 AXES IL 178 P 32 QRSd 88 QRS 27 QT 448 T 41 QTc 465 Conclusion SINUS RHYTHM NORMAL ECG UNCONFIRMED REPORT Electronically signed by : Darrell Taylor MD 04/13/2025 09:05:01
[2025-04-11 16:00] VITALS: BP 137/57; PULSE 65; RESP 12; TEMP 36.8; O2SAT 95
[2025-04-11] MEDS: LEVOTHYROXINE 50MCG (0.05MG) TAB 50 MCG PO (17:12)
[2025-04-11 20:00] VITALS: BP 110/55; PULSE 70; RESP 16; TEMP 36.7; O2SAT 95
[2025-04-11] MEDS: OLANZapine 5 MG ODT TABLET SL (20:20)
[2025-04-11 20:32] LABS: POC Glucose,Bedside 126 gm/dL (70-110)
[2025-04-12] MEDS: OXYCODONE 5MG IMMEDIATE RELEASE TABLET 5 MG PO ×4 (03:08→21:52)
[2025-04-12 04:00] VITALS: BP 100/61; PULSE 59; RESP 16; TEMP 36.7; O2SAT 94; BMI 24.5
[2025-04-12] MEDS: LEVOTHYROXINE 50MCG (0.05MG) TAB 50 MCG PO (06:11)
[2025-04-12 06:18] LABS: POC Glucose,Bedside 116 gm/dL (70-110)
[2025-04-12 07:21] LABS: Hematocrit 33.0 % (37.0-47.0); Hemoglobin 10.7 g/dL (12.2-16.2); Immature Granulocytes % 0.2 %; Mean Corpuscular HGB Conc 32.4 g/dL (31.8-35.4); Mean Corpuscular Hemoglobin 30.0 pg (27.0-31.2); Mean Corpuscular Volume 92.4 fl (81-99); Nucleated Red Blood Cells % 0 %; Platelet Count 255 K/mm3 (142-424); Red Blood Count 3.57 M/mm3 (4.20-5.40); Red Cell Distribution Width-SD 46.0 fL; White Blood Count 6.0 K/mm3 (4.8-10.8)
[2025-04-12 07:47] LABS: Anion Gap 11.9 mEq/L (5-15); Blood Urea Nitrogen 17 mg/dl (7-17); Calcium 9.1 mg/dl (8.4-10.2); Carbon Dioxide 24 mmol/L (22.0-30.0); Chloride 100 mmol/L (98-107); Creatinine Clearance Estimated 52 mL/min (50-200); Creatinine,Serum 0.80 mg/dl (0.52-1.04); Estimated Glomerular Filt Rate 70 ml/min (>60); GFR (African American) 84 ML/MIN (>60); Glucose 104 mg/dl (74-100); Potassium 3.9 mmoL/L (3.5-5.1); Sodium 132 mmol/L (136-145)
[2025-04-12 08:00] VITALS: BP 108/59; PULSE 61; RESP 12; TEMP 36.9; O2SAT 96
--- NOTE | 2025-04-12 09:32 | HMH.PHAAMS2 ---
- Antimicrobial Stewardship Review reviewed - no change Stewardship interventions: reviewed - no change
[2025-04-12 12:10] LABS: POC Glucose,Bedside 87 gm/dL (70-110)
--- NOTE | 2025-04-12 13:59 | P.PN_ITS ---
Subjective *Date: 04/19/25 *Time: 23:15 Interval history: No acute discharges on exam this morning. Working with physical therapy. Pending placement. Exam Data for Last 24 hours Vital signs and Labs for Last 24 Hours: Temp Pulse Resp BP Pulse Ox O2 Del Method 98.4 F 61 12 108/59 L 96 Room Air 04/12/25 08:00 04/12/25 08:00 04/12/25 08:00 04/12/25 08:00 04/12/25 08:00 04/12/25 12:59 Laboratory Results - last 24 hr 04/11/25 20:20: POC Glucose 126 H 04/12/25 06:10: POC Glucose 116 H 04/12/25 06:32: WBC 6.0, RBC 3.57 L, Hgb 10.7 L, Hct 33.0 L, MCV 92.4, MCH 30.0, MCHC 32.4, RDW 13.4, Plt Count 255, MPV 9.5, Neut % (Auto) 50.7, Lymph % (Auto) 37.2, [place] % (Auto) 7.9, Eos % (Auto) 2.8, Baso % (Auto) 1.2, Neut # (Auto) 3.0, Lymph # (Auto) 2.2, [place] # (Auto) 0.5, Eos # (Auto) 0.2, Baso # (Auto) 0.1, Sodium 132 L, Potassium 3.9, Chloride 100, Carbon Dioxide 24, Anion Gap 11.9, BUN 17, Creatinine 0.80, Estimated Creat Clear 52, Estimated GFR 70, Est GFR ( Amer) 84, Glucose 104 H, Calcium 9.1 04/12/25 11:53: POC Glucose 87 I & O for Last 24 hours: Intake & Output 04/09/25 04/10/25 04/11/25 04/12/25 23:59 23:59 23:59 23:59 Intake Total 1050 / 1230 1410 / 1410 950 / 950 170 / 170 Output Total 4550 / 4550 1600 / 1600 1100 / 1100 Balance 1050 / 1230 -3140 / -3140 -650 / -650 -930 / -930 Weight 69.989 kg 70.216 kg 69.581 kg 69.309 kg Constitutional Constitutional: no acute distress, average body habitus and cooperative *Routine HEENT Exam Head: Present normocephalic Eye: Present EOMI and PERRL ENT: Present mucous membranes moist *Routine Neck Exam Neck: Present supple; Absent lymphadenopathy *Routine Respiratory Exam Respiratory: Present prolonged expiratory phase; Absent rhonchi, wheezes or crackles *Routine Cardiovascular Exam Cardiovascular: Present RRR *Routine Abdominal Exam Abdominal: Present soft and normoactive bowel sounds; Absent tenderness *Routine Rectal Exam Patient deferred: visual exam *Routine Exam Patient deferred: external exam *Routine Extremities Exam Extremities: Absent cyanosis, clubbing or edema *Routine Skin Exam Skin: Present intact and warm; Absent rash *Routine Neurological Exam Neurological: Present alert, oriented X3 and moving all extremities; Absent altered mental status Assessment and Plan *Assessment and plan (1) Dysuria: Status: Acute Category: Medical Code(s): R30.0 - Dysuria (2) Bladder pain: Status: Acute Category: Medical Code(s): R39.89 - Other symptoms and signs involving the genitourinary system (3) Opioid withdrawal: Status: Acute Category: Medical Code(s): F11.93 - Opioid use, unspecified with withdrawal Plan Rox Whitfield is a 74-year-old female who presented with chest pressure and back pain, shakes, tremors, anxiety. Of note she recently discontinued taking opioids 2 days prior to . She was admitted for recent fall with compression fracture of T12, and physical deconditioning. #UTI #Fall #Physical deconditioning ? Patient presented with progressive weakness in the setting of opioid withdrawal, chronic pain syndrome. ? PT/OT recommends SNF, case management and social work assisting with plac ement. ? TSH slightly high, follow-up free T4. B12, folate normal. ? Continue IV ceftriaxone for possible UTI, follow-up urine culture. ? Working with PT/OT, continues to require placement for physical deconditioning. #Opioid withdrawal, resolved #Bladder pain, dysuria ? Patient had been taking Percocet 10 mg every 6 hours for chronic bladder pain/dysuria. Stopped around . ? Opioid withdrawal symptoms improved after restarting oxycodone 5 mg as needed. ? She has followed up with urology, [facility] [employer], GI without a good explanation for her bladder pain/dysuria. ? PCP started oxycodone, with improvement in symptoms. #Hypothyroidism ? Continue home levothyroxine 50 mcg. TSH slightly high at 4.96, follow-up free T4. #Type 2 diabetes ? Follow-up hemoglobin A1c. 5.9% in November 2024. ? Continue home metformin 500 mg twice daily. #Anxiety/depression ? Continue home duloxetine 20 mg daily, Xanax every 8 hours as needed. DNR/DNI DVT prophylaxis: Lovenox 40 mg
[2025-04-12 16:00] VITALS: BP 116/61; PULSE 58; RESP 16; TEMP 36.5; O2SAT 94
[2025-04-12 16:18] LABS: POC Glucose,Bedside 97 gm/dL (70-110)
--- NOTE | 2025-04-12 16:31 | PC.NURSE ---
PT IS RESTING IN BED. ALERT AND ORIENTED X4. PT TOLERATED SITTING UP IN THE CHAIR FOR A FEW HOURS THIS SHIFT. AMBULATES TO THE BATHROOM WITH 1 ASSIST. TURNS AND REPOSITIONS SELF IN BED. EATING AND DRINKING WELL. MEDICATED PER MAR FOR ANXIETY AND DISCOMFORT. VSS. WILL CONTINUE TO MONITOR.
[2025-04-12 20:00] VITALS: BP 91/51; PULSE 66; RESP 16; TEMP 36.9; O2SAT 95
[2025-04-12] MEDS: OLANZapine 5 MG ODT TABLET SL (20:14)
[2025-04-13] MEDS: ACETAMINOPHEN 325MG TAB 650 MG PO ×2 (00:38→20:19)
[2025-04-13] MEDS: OXYCODONE 5MG IMMEDIATE RELEASE TABLET 5 MG PO ×2 (03:24→09:05)
--- NOTE | 2025-04-13 03:37 | PC.NURSE ---
pt is A&OX4 and has tolerated room air. She has been medicated for russel n
--- NOTE | 2025-04-13 03:38 | PC.NURSE ---
Pt is A&OX4 and has tolerated room air. She has been medicated for pain and anxiety this shift. Purewick has remained in place. No other complaints at this time, call light within reach.
[2025-04-13 04:00] VITALS: BP 107/58; PULSE 56; RESP 16; TEMP 36.6; O2SAT 95; BMI 24.4
[2025-04-13] MEDS: LEVOTHYROXINE 50MCG (0.05MG) TAB 50 MCG PO (06:50)
[2025-04-13 07:15] LABS: Hematocrit 31.1 % (37.0-47.0); Hemoglobin 9.9 g/dL (12.2-16.2); Immature Granulocytes % 0.2 %; Mean Corpuscular HGB Conc 31.8 g/dL (31.8-35.4); Mean Corpuscular Hemoglobin 29.7 pg (27.0-31.2); Mean Corpuscular Volume 93.4 fl (81-99); Nucleated Red Blood Cells % 0 %; Platelet Count 217 K/mm3 (142-424); Red Blood Count 3.33 M/mm3 (4.20-5.40); Red Cell Distribution Width-SD 45.9 fL; White Blood Count 4.8 K/mm3 (4.8-10.8)
[2025-04-13 07:30] LABS: Chloride 101 mmol/L (98-107); Potassium 4.0 mmoL/L (3.5-5.1); Sodium 139 mmol/L (136-145)
[2025-04-13 07:33] LABS: Anion Gap 17.0 mEq/L (5-15); Blood Urea Nitrogen 18 mg/dl (7-17); Carbon Dioxide 25 mmol/L (22.0-30.0); Creatinine Clearance Estimated 52 mL/min (50-200); Creatinine,Serum 0.80 mg/dl (0.52-1.04); Estimated Glomerular Filt Rate 70 ml/min (>60); GFR (African American) 84 ML/MIN (>60); Glucose 91 mg/dl (74-100)
[2025-04-13 07:34] LABS: Calcium 8.7 mg/dl (8.4-10.2)
[2025-04-13 08:00] VITALS: BP 123/52; PULSE 57; RESP 12; TEMP 36.5; O2SAT 92
--- NOTE | 2025-04-13 09:11 | HMH.PHAAMS2 ---
- Antimicrobial Stewardship Review culture & sensitivity review Stewardship interventions: culture & sensitivity review (CURRENTLY ON ROCEPHIN, AFEBRILE, WBC WNL. NO GROWTH IN URINE CX.)
--- NOTE | 2025-04-13 09:14 | HMH.PHAAMS2 ---
- Antimicrobial Stewardship Review 48 hour timeout review Stewardship interventions: 48 hour timeout review (ON ROCEPHIN FOR UTI, NO GROWTH IN URINE CX. AFEBRILE, AND WBC WNL.)
[2025-04-13 11:03] LABS: Thyroid Stimulating Hormone 4.96 uIU/mL (0.465-4.68)
[2025-04-13 11:22] LABS: Vitamin B12 596 pg/mL (239-931)
[2025-04-13] MEDS: POLYETHYLENE GLYCOL 3350 17 GM PACKET PO (12:11)
[2025-04-13] MEDS: BISACODYL 10MG SUPP 10 MG RC (12:14)
--- NOTE | 2025-04-13 13:36 | EXP.PN ---
Subjective *Date: 04/13/25 *Time: 13:36 Interval history: Working with PT OT, slowly improving. Pending SNF placement. Today, patient is requesting her home Percocet 10 mg every 6 hours. Will trial 7.5 mg every 6 hours for now, titrate as needed for chronic bladder pain/dysuria. Will trial vaginal estrogen cream today for possible vaginal atrophy, follow-up response. Exam Data for Last 24 hours Vital signs and Labs for Last 24 Hours: Temp Pulse Resp BP Pulse Ox O2 Del Method 97.7 F 57 L 12 123/52 L 92 L Room Air 04/13/25 08:00 04/13/25 08:00 04/13/25 08:00 04/13/25 08:00 04/13/25 08:00 04/13/25 12:49 Laboratory Results - last 24 hr 04/12/25 15:58: POC Glucose 97 04/13/25 06:35: WBC 4.8, RBC 3.33 L, Hgb 9.9 L, Hct 31.1 L, MCV 93.4, MCH 29.7, MCHC 31.8, RDW 13.4, Plt Count 217, MPV 9.7, Neut % (Auto) 42.1, Lymph % (Auto) 45.7, Gregory % (Auto) 6.9, Eos % (Auto) 3.4, Baso % (Auto) 1.7, Neut # (Auto) 2.0, Lymph # (Auto) 2.2, Gregory # (Auto) 0.3, Eos # (Auto) 0.2, Baso # (Auto) 0.1, Sodium 139, Potassium 4.0, Chloride 101, Carbon Dioxide 25, Anion Gap 17.0 H, BUN 18 H, Creatinine 0.80, Estimated Creat Clear 52, Estimated GFR 70, Est GFR ( Amer) 84, Glucose 91, Calcium 8.7, Vitamin B12 596, TSH 4.96 H I & O for Last 24 hours: Intake & Output 04/10/25 04/11/25 04/12/25 04/13/25 23:59 23:59 23:59 23:59 Intake Total 1410 / 1410 950 / 950 880 / 880 170 / 170 Output Total 4550 / 4550 1600 / 1600 1500 / 2100 1450 / 1450 Balance -3140 / -3140 -650 / -650 -620 / -1220 -1280 / -1280 Weight 70.216 kg 69.581 kg 69.309 kg 68.946 kg Constitutional Constitutional: no acute distress *Routine HEENT Exam Head: Present normocephalic Eye: Present EOMI and PERRL ENT: Present mucous membranes moist *Routine Neck Exam Neck: Present supple; Absent lymphadenopathy *Routine Respiratory Exam Respiratory: Present CTA bilaterally *Routine Cardiovascular Exam Cardiovascular: Present RRR *Routine Abdominal Exam Abdominal: Present soft and normoactive bowel sounds; Absent tenderness *Routine Extremities Exam Extremities: Absent cyanosis, clubbing or edema *Routine Skin Exam Skin: Present warm; Absent rash *Routine Neurological Exam Neurological: Present alert and oriented X3 Assessment and Plan *Assessment and plan (1) Dysuria: Status: Acute Category: Medical Code(s): R30.0 - Dysuria (2) Bladder pain: Status: Acute Category: Medical Code(s): R39.89 - Other symptoms and signs involving the genitourinary system (3) Weakness: Status: Acute Category: Medical Code(s): R53.1 - Weakness Plan Rox Whitfield is a 74-year-old female who presented with chest pressure and back pain, shakes, tremors, anxiety. Of note she recently discontinued taking opioids 2 days prior to . She was admitted for recent fall with compression fracture of T12, and physical deconditioning. #Fall #Physical deconditioning ? Patient presented with progressive weakness in the setting of opioid withdrawal, chronic pain syndrome. ? PT/OT recommends SNF, case management and social work assisting with placement. ? TSH slightly high, follow-up free T4. B12, folate normal. ? Initially thought to have a UTI, but urine culture normal. Will discontinue ceftriaxone. #Opioid withdrawal, resolved #Bladder pain, dysuria ? Patient had been taking Percocet 10 mg every 6 hours for chronic bladder pain/dysuria. Stopped around . ? Opioid withdrawal symptoms improved after restarting oxycodone 5 mg as needed. ? 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 ? PCP started oxycodone, with improvement in symptoms. ? Will trial vaginal estrogen cream today for possible vaginal atrophy, follow-up response. ? Today, patient is requesting her home Percocet 10 mg every 6 hours. Will trial 7.5 mg every 6 hours for now, titrate as needed. #Hypothyroidism ? Continue home levothyroxine 50 mcg. TSH slightly high, follow-up free T4. #Type 2 diabetes ? Follow-up hemoglobin A1c. 5.9% in November 2024. ? Continue home metformin 500 mg twice daily. #Anxiety/depression ? Continue home duloxetine 20 mg daily, Xanax every 8 hours as needed. DNR/DNI DVT prophylaxis: Lovenox 40 mg
[2025-04-13 13:56] LABS: Free T4 (Free Thyroxine) 0.61 ng/dl (0.78-2.19)
[2025-04-13] MEDS: OXYCODONE 5MG IMMEDIATE RELEASE TABLET 7.5 MG PO ×2 (15:12→21:38)
[2025-04-13 16:00] VITALS: BP 113/72; PULSE 65; RESP 18; TEMP 36.6; O2SAT 95
[2025-04-13 20:00] VITALS: BP 102/56; PULSE 67; RESP 16; TEMP 36.5; O2SAT 94
[2025-04-13] MEDS: METFORMIN 500MG TABLET 500 MG PO (20:19)
[2025-04-14] MEDS: ONDANSETRON 4MG/2ML VIAL 4 MG IV (00:36)
[2025-04-14] MEDS: OXYCODONE 5MG IMMEDIATE RELEASE TABLET 7.5 MG PO ×3 (03:38→15:15)
[2025-04-14 04:00] VITALS: BP 126/69; PULSE 62; RESP 16; TEMP 36.4; O2SAT 96; BMI 25.3
[2025-04-14] MEDS: LEVOTHYROXINE 100MCG (0.1MG) TAB 100 MCG PO (06:44)
[2025-04-14 07:11] LABS: Hematocrit 34.1 % (37.0-47.0); Immature Granulocytes % 0.3 %; Mean Corpuscular HGB Conc 32.8 g/dL (31.8-35.4); Mean Corpuscular Hemoglobin 30.9 pg (27.0-31.2); Mean Corpuscular Volume 94.2 fl (81-99); Nucleated Red Blood Cells % 0 %; Platelet Count 248 K/mm3 (142-424); Red Blood Count 3.62 M/mm3 (4.20-5.40); Red Cell Distribution Width-SD 46.7 fL; White Blood Count 3.9 K/mm3 (4.8-10.8)
[2025-04-14 07:21] LABS: Chloride 102 mmol/L (98-107)
[2025-04-14 07:22] LABS: Potassium 4.8 mmoL/L (3.5-5.1); Sodium 142 mmol/L (136-145)
[2025-04-14 07:25] LABS: Anion Gap 14.8 mEq/L (5-15); Blood Urea Nitrogen 17 mg/dl (7-17); Calcium 8.8 mg/dl (8.4-10.2); Carbon Dioxide 30 mmol/L (22.0-30.0); Creatinine Clearance Estimated 52 mL/min (50-200); Creatinine,Serum 0.90 mg/dl (0.52-1.04); Estimated Glomerular Filt Rate 61 ml/min (>60); GFR (African American) 74 ML/MIN (>60); Glucose 93 mg/dl (74-100)
[2025-04-14 07:51] LABS: Hemoglobin 11.2 g/dL (12.2-16.2)
[2025-04-14 08:00] VITALS: BP 97/53; PULSE 66; RESP 16; TEMP 36.4; O2SAT 97
[2025-04-14 08:15] VITALS: O2SAT 97
[2025-04-14 08:54] LABS: Folate 7.89 ng/mL
[2025-04-14] MEDS: CONJUGATED ESTROGENS 0.625MG/GM 30GM APPLICATOR VG (09:39)
[2025-04-14] MEDS: POLYETHYLENE GLYCOL 3350 17 GM PACKET PO (09:39)
[2025-04-14] MEDS: METFORMIN 500MG TABLET 500 MG PO (09:39)
[2025-04-14] MEDS: SODIUM PHOS/BIPHOSPHATE FLEET 133ML ENEMA 133 ML RC (12:48)
--- NOTE | 2025-04-14 13:23 | P.DS_ITS ---
General Admission date:: 04/09/25 Discharge date: 04/14/25 HPI HPI HPI: This is a 74-year-old female who has a past medical history significant for factor V Leiden's, splenic aneurysm, chronic urinary tract infection, bladder prolapse, T12 compression fracture, diverticulitis, panic attacks, anxiety, diabetes, hyperlipidemia, hypothyroidism, coronary artery disease, and COPD who presents with chest pain/chest pressure and back pain. Due to patient's symptoms, she presented to the emergency room for evaluation. While in the emergency room, CTA of the chest revealed negative scan for aortic aneurysm/aortic dissection, multiple old right posterior mid and lower rib fractures, and subacute compression fracture of T12 and worsening height loss from prior exam. CT scan of the abdomen pelvis revealed subacute appearing moderate compression fracture of T12, no aneurysm or dissection. EKG revealed a sinus rhythm, QTc of 441, normal axis, and negative STEMI. Patient admitted to ER provider that she has an addiction to opioids and is currently withdrawing. Patient has no family to help, so she has been admitted for further management. During my evaluation of the patient, patient states she has been on chronic opioids since her back pain started. She reports her last administration of opioids was 2 days prior to . She states over the last 48 to 72 hours she has been experiencing shakes, tremors, anxiety, and overall not feeling well. She also mentions that she has been having some jerking. Patient reports that she has been treated multiple times over the last year for urinary tract infection. She reports being on 2 different antibiotics without any improvement of her symptomology. Review of EMR shows she has grown E. coli that was not pansensitive. Patient also admits that she is taking Xanax 0.5 mg 3 times daily panic attacks. Patient reports that her children has preceded her in -all 3. Patient recently had a provocative workup that showed no jina dence of fixed or reversible perfusion and her EF at that time was 53% this was performed in 2023. Patient was denying any chest pain, lightheadedness, dizziness, PND, orthopnea, nausea, vomiting, shortness of breath, or dyspnea. She did have uncontrollable tremors during my evaluation. Additional pertinent labs obtained include a INR 1.13, sodium 131, potassium of 3.4, chloride of 95, blood glucose 130, total protein of 10.1, albumin 5.4, and urinalysis revealed white blood cells too numerous to count. It is worth mentioning patient states she had a 30 pound unintentional weight loss. Hospital Course Hospital Course Hospital Course: Rox Whitfield is a 74-year-old female who presented with chest pressure and back pain, shakes, tremors, anxiety. Of note she recently discontinued taking opioids 2 days prior to . She was admitted for recent fall with compression fracture of T12, and physical deconditioning. Showing improvement with pain control. Will need to wean pain medication at nursing facility. Would benefit from placement for rehab. Graciously excepted by [facility]. Stable discharge. Problems addressed as follows: #Fall #Physical deconditioning ? Patient presented with progressive weakness in the setting of opioid withdrawal, chronic pain syndrome. PT/OT recommends SNF, case management and social work assisting with placement. Graciously excepted by [facility] [place] [place]. Initially thought to have UTI but urine culture returned negative. Completed 3 days of ceftriaxone. No indication for further antibiotics. Stable to discharge for rehab to improve her strength and mobility. #Opioid withdrawal, resolved #Bladder pain, dysuria ? Patient had been taking Percocet 10 mg every 6 hours for chronic bladder pain/dysuria. Stopped around . Opioid withdrawal symptoms improved after restarting oxycodone 5 mg as needed. 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 PCP started oxycodone, with improvement in symptoms. Initiated on vaginal estrogen cream for vaginal atrophy. Continue 3 times a week. Continue immediate release oxycodone 7.5 mg as needed every 6 hours. Recommend gradual weaning. #Hypothyroidism ? TSH at upper limit of normal range with free T4 low. Increase levothyroxine to 100 mcg daily. #Type 2 diabetes ? A1c 5.9 in November. Appears to be well-controlled over the past year. Continue metformin 500 mg twice daily. #Anxiety/depression ? Continue home duloxetine 20 mg daily, Xanax every 8 hours as needed. Total time spent on discharge 36 minutes in counseling, documentation, chart review, and direct care with patient. Exam Data for Last 24 hours Vital signs and Labs for Last 24 Hours: Temp Pulse Resp BP Pulse Ox O2 Del Method 97.5 F L 66 16 97/53 L 97 Room Air 12/09/25 08:00 04/14/25 08:00 04/14/25 08:00 04/14/25 08:00 04/14/25 08:15 04/14/25 11:10 Laboratory Results - last 24 hr 04/13/25 12:35: Free T4 0.61 L 04/14/25 06:25: WBC 3.9 L, RBC 3.62 L, Hgb 11.2 L D, Hct 34.1 L, MCV 94.2, MCH 30.9, MCHC 32.8, RDW 13.5, Plt Count 248, MPV 9.6, Neut % (Auto) 42.3, Lymph % (Auto) 43.6, [place] % (Auto) 8.8, Eos % (Auto) 3.4, Baso % (Auto) 1.6, Neut # (Auto) 1.6 L, Lymph # (Auto) 1.7, [place] # (Auto) 0.3, Eos # (Auto) 0.1, Baso # (Auto) 0.1, Sodium 142, Potassium 4.8, Chloride 102, Carbon Dioxide 30, Anion Gap 14.8, BUN 17, Creatinine 0.90, Estimated Creat Clear 52, Estimated GFR 61, Est GFR ( Amer) 74, Glucose 93, Calcium 8.8, Folate 7.89 I & O for Last 24 hours: Intake & Output 04/11/25 04/12/25 04/13/25 04/14/25 23:59 23:59 23:59 23:59 Intake Total 950 / 950 880 / 880 820 / 820 510 / 510 Output Total 1600 / 1600 1500 / 2100 2225 / 2225 900 / 900 Balance -650 / -650 -620 / -1220 -1405 / -1405 -390 / -390 Weight 69.581 kg 69.309 kg 68.946 kg 71.469 kg Constitutional Constitutional: no acute distress, average body habitus and cooperative *Routine HEENT Exam Head: Present normocephalic Eye: Present EOMI and PERRL ENT: Present mucous membranes moist *Routine Neck Exam Neck: Present supple; Absent lymphadenopathy *Routine Respiratory Exam Respiratory: Present prolonged expiratory phase; Absent rhonchi, wheezes or crackles *Routine Cardiovascular Exam Cardiovascular: Present RRR *Routine Abdominal Exam Abdominal: Present soft and normoactive bowel sounds; Absent tenderness *Routine Rectal Exam Patient deferred: visual exam *Routine Exam Patient deferred: external exam *Routine Extremities Exam Extremities: Absent cyanosis, clubbing or edema *Routine Skin Exam Skin: Present intact and warm; Absent rash *Routine Neurological Exam Neurological: Present alert, oriented X3 and moving all extremities; Absent altered mental status Results Data Completed and Pending Labs on day of discharge: Labs from last 24 hours 04/14/25 04/13/25 06:25 12:35 WBC 3.9 L RBC 3.62 L Hgb 11.2 L D Hct 34.1 L MCV 94.2 MCH 30.9 MCHC 32.8 RDW 13.5 Plt Count 248 MPV 9.6 Neut % (Auto) 42.3 Lymph % (Auto) 43.6 [place] % (Auto) 8.8 Eos % (Auto) 3.4 Baso % (Auto) 1.6 Neut # (Auto) 1.6 L Lymph # (Auto) 1.7 [place] # (Auto) 0.3 Eos # (Auto) 0.1 Baso # (Auto) 0.1 Sodium 142 Potassium 4.8 Chloride 102 Carbon Dioxide 30 Anion Gap 14.8 BUN 17 Creatinine 0.90 Estimated Creat Clear 52 Estimated GFR 61 Est GFR ( Amer) 74 Glucose 93 Calcium 8.8 Folate 7.89 Free T4 0.61 L DS: Diagnosis Discharge Diagnosis (1) Dysuria: Status: Acute Code(s): R30.0 - Dysuria (2) Bladder pain: Status: Acute Code(s): R39.89 - Other symptoms and signs involving the genitourinary system (3) Weakness: Status: Acute Code(s): R53.1 - Weakness (4) Opioid withdrawal without complication: Status: Acute Code(s): F11.93 - Opioid use, unspecified with withdrawal (5) Acute UTI: Status: Acute Code(s): N39.0 - Urinary tract infection, site not specified (6) Compression fracture of T12 vertebra: Status: Acute Code(s): S22.080A - Wedge compression fracture of T11-T12 vertebra, initial encounter for closed fracture Qualifiers: Encounter type: subsequent encounter Fracture healing: with delayed healing Qualified Code(s): S22.080G - Wedge compression fracture of T11-T12 vertebra, subsequent encounter for fracture with delayed healing (7) Opioid dependence: Status: Acute Code(s): F11.20 - Opioid dependence, uncomplicated Qualifiers: Substance use status: in withdrawal Qualified Code(s): F11.23 - Opioid dependence with withdrawal (8) Constipation: Status: Acute Code(s): K59.00 - Constipation, unspecified (9) Depression: Status: Acute Code(s): F32.A - Depression, unspecified Qualifiers: Depression Type: unspecified Qualified Code(s): F32.A - Depression, unspecified (10) Atrophic vaginitis: Status: Acute Code(s): N95.2 - Postmenopausal atrophic vaginitis (11) GERD (gastroesophageal reflux disease): Status: Acute Code(s): K21.9 - Gastro-esophageal reflux disease without esophagitis Qualifiers: Esophagitis presence: without esophagitis Qualified Code(s): K21.9 - Gastro-esophageal reflux disease without esophagitis (12) Diabetes type 2, controlled: Status: Acute Code(s): E11.9 - Type 2 diabetes mellitus without complications (13) Generalized anxiety disorder: Status: Acute Code(s): F41.1 - Generalized anxiety disorder (14) Osteoarthritis of left shoulder: Status: Acute Code(s): M19.012 - Primary osteoarthritis, left shoulder Qualifiers: Osteoarthritis type: primary Qualified Code(s): M19.012 - Primary osteoarthritis, left shoulder (15) Hypothyroidism: Status: Acute Code(s): E03.9 - Hypothyroidism, unspecified Qualifiers: Hypothyroidism type: acquired Qualified Code(s): E03.9 - Hypothyroidism, unspecified Meds Home Medications and Allergies Home Medications ?Medication ?Instructions ?Recorded ?Confirmed ?Type metformin 500 mg tablet 500 mg PO BID #60 tabs 01/2804/09/25 Rx duloxetine 20 mg capsule,delayed 20 mg PO DAILY #30 ca ps 03/25/25 04/09/25 Rx release ondansetron HCl 8 mg tablet 8 mg PO TIDP PRN Nausea An d 04/10/25 04/10/25 History Vomiting promethazine 25 mg tablet 25 mg PO Q6HP PRN Nausea And 04/10/25 04/10/25 History Vomiting alprazolam 0.5 mg tablet (Xanax) 0.5 mg PO TIDP PRN an xiety 30 days 04/14/25 Rx #90 tabs conjugated estrogens 0.625 mg/gram 0.3125 mg vaginal . MWF 30 days #30 04/14/25 Rx vaginal cream (Premarin) grams levothyroxine 100 mcg tablet 100 mcg PO DAILYDM 30 day s #30 tabs 04/14/25 Rx (Synthroid) oxycodone 5 mg tablet 7.5 mg (1.5 x 5 mg) PO Q6HP PRN 04/14/25 Rx Moderate To Severe Pain (4-10) 15 days #90 tabs New Prescriptions to Start Prescriptions: alprazolam [Xanax] Gian Angulo conjugated estrogens [Premarin] Gian Angulo levothyroxine [Synthroid] Kev,Gian oxycodone Gian Angulo Allergies Allergy/AdvReac Type Severity Reaction Status Date / Time codeine Allergy Mild Rash Verified 03/25/25 13:37 Sulfa (Sulfonamide Allergy Mild Rash Verified 03/25/25 13:37 Antibiotics) cefaclor (From [facility]) Allergy Unknown Unknown Verified 04/13/25 14:14 allergy reaction Discharge Plan Disposition Patient Disposition: [facility] Condition: Fair Discharge Order Discharge Orders: Discharge Order (Routine); Ordered 04/14/25 Ordered By: Gian Angulo Follow up Plan Follow up with: Darrell Lane MD [Primary Care Provider, [facility]] - Enter time for follow up Prescriptions/Medication Reconciliation: New Premarin 0.625 mg/gram Cream 0.3125 mg vaginal .MWF 30 Days Qty: 30 0RF levothyroxine [Synthroid] 100 mcg Tablet 100 mcg PO DAILYDM 30 Days Qty: 30 0RF oxycodone 5 mg Tablet 7.5 mg PO Q6HP PRN (Reason: Moderate To Severe Pain (4-10)) 15 Days Qty: 90 0RF Continued duloxetine 20 mg capsule,delayed release(DR/EC) 20 mg PO DAILY Qty: 30 2RF metformin 500 mg tablet 500 mg PO BID Qty: 60 3RF ondansetron HCl 8 mg tablet 8 mg PO TIDP PRN (Reason: Nausea And Vomiting) promethazine 25 mg tablet 25 mg PO Q6HP PRN (Reason: Nausea And Vomiting) Changed alprazolam [Xanax] 0.5 mg tablet 0.5 mg PO TIDP PRN (Reason: anxiety) 30 Days Qty: 90 0RF Discontinued lofexidine [Lucemyra] 0.18 mg tablet 0.54 mg PO QIDP PRN (Reason: withdrawal symptom) levothyroxine [Synthroid] 50 mcg tablet 50 mcg PO DAILY Problem Reconciliation Problems Reviewed?: Yes Patient Discharge Instructions ACTIVITY: Continue current activity DIET: continue same diet Patient Instructions: DI for Urinary Tract Infection (UTI), Spinous Process Fracture, Stop Light Infection Print Language: Tajik Providers Primary Care Provider: Darrell Lane Admit Provider: Mohsen Rodriguez Attending Provider: Mohsen Rodriguez
== END 2025-04-14 16:52 ==
LOC: ER 18:11 → 2ND 20:49
PROVIDERS: Nurse Practitioner Family; Admitting Provider Student in an Organized Health Care Education/Training Program; Emergency Provider Student in an Organized Health Care Education/Training Program; PCP Family Medicine; Visit Provider Student in an Organized Health Care Education/Training Program
DX: N39.0 Urinary tract infection, site not specified (principal); R53.1 Weakness; S22.080G Wedge compression fracture of T11-T12 vertebra, subsequent encounter for fracture with delayed healing; F11.23 Opioid dependence with withdrawal; K59.00 Constipation, unspecified; F32.A Depression, unspecified; N95.2 Postmenopausal atrophic vaginitis; K21.9 Gastro-esophageal reflux disease without esophagitis; F41.1 Generalized anxiety disorder; M19.012 Primary osteoarthritis, left shoulder; E03.9 Hypothyroidism, unspecified; E87.6 Hypokalemia; R63.4 Abnormal weight loss; I25.10 Atherosclerotic heart disease of native coronary artery without angina pectoris; J44.9 Chronic obstructive pulmonary disease, unspecified; E78.5 Hyperlipidemia, unspecified; Z90.49 Acquired absence of other specified parts of digestive tract; Z90.710 Acquired absence of both cervix and uterus; Z90.89 Acquired absence of other organs; F17.210 Nicotine dependence, cigarettes, uncomplicated; Z88.5 Allergy status to narcotic agent; Z88.2 Allergy status to sulfonamides; Z88.8 Allergy status to other drugs, medicaments and biological substances; Z79.899 Other long term (current) drug therapy; Z79.890 Hormone replacement therapy; Z66 Do not resuscitate
CPT/HCPCS: 36415; 71275; 74174; 80048; 80053; 81001; 82607; 82746; 82962; 83690; 84439; 84443; 84484; 85025; 87086; 93005; 97110; 97162; 97166; 97530; 99285; G0378; J0131; J0696; J1650; J2405; J7030; Q9967